=== PATIENT | female | born 1960 | race Caucasian/White ===

== ENCOUNTER → 2016-05-01 | Outpatient (CLI) | payer MEDICARE, OTHER ==
[2016-05-01 13:46] VITALS: BP 109/78; PULSE 8; TEMP 97.4; BMI 31.1
[2016-05-01 15:43] LABS: CH 27.1; CHCM 32.2; HCT 41.8 % (34.0-46.0); HDW 2.65; HGB 13.8 gm/dL (11.4-16.0); MCH 27.8 pg (25.0-35.0); MCHC 32.9 g/dL (31.0-37.0); MCV 84.5 fL (80.0-100.0); Mean Platelet Volume 8.9; RBC 4.95 m/uL (3.80-5.40); RDW 15.5 % (11.5-15.5); WBC 10.8 k/uL (3.8-10.6)
[2016-05-01 16:12] LABS: ALT 41 U/L (9-52); AST 16 U/L (14-36); Alkaline Phosphatase 119 U/L (38-126); Anion Gap 10 mmol/L; Blood Urea Nitrogen 11 mg/dL (7-17); Calcium 9.2 mg/dL (8.4-10.2); Carbon Dioxide 24 mmol/L (22-30); Chloride 107 mmol/L (98-107); Cholesterol 182 mg/dL (<200); Glucose 88 mg/dL (74-99); HDL Cholesterol 64 mg/dL (40-60); Iron 28 ug/dL (37-170); Non-African American GFR(MDRD) 58 (>60 ml/min/1.73 sqM); Phosphorous 4.3 mg/dL (2.5-4.5); Potassium 4.1 mmol/L (3.5-5.1); Sodium 141 mmol/L (137-145); Total Bilirubin 0.8 mg/dL (0.2-1.3); Total Protein 6.9 g/dL (6.3-8.2); Triglycerides 139 mg/dL (<150)
[2016-05-01 16:22] LABS: % Iron Saturation 7.9 % (20-50); Prealbumin 16 mg/dL (18-36); Total Iron Binding Capacity 354 ug/dL (265-497)
[2016-05-01 16:42] LABS: INR 1.1 (<1.1); Partial Thromboplastin Time 25.8 sec (22.0-30.0); Prothrombin Time 11.2 sec (9.0-12.0)
[2016-05-01 17:16] LABS: Vitamin B12 426 pg/mL (239-931)
[2016-05-01 18:08] LABS: Hemoglobin A1C 5.4 % (4.2-6.1)
[2016-05-06 18:28] LABS: Selenium 162 mcg/L (63-160)
--- NOTE | 2016-06-04 23:47 | P.PN ---
Progress Note - Text DATE OF SERVICE: 05/01/2016 CHIEF COMPLAINT: Follow-up gastric bypass. HISTORY OF PRESENT ILLNESS: Kassy Lopez is a 55-year-old female status post gastric bypass on 11/06/2015. She is now 6 months out. Her ideal body weight for a 5' 6" frame is 154 pound. Her highest weight was 278 pounds. Today she comes in weighing 193 pounds. She has lost 85 pounds. The patient's weight loss is 69%. Since her last follow-up 3 months ago in January, she has lost another 31 pounds. Body mass index is reduced from 45 down to 31.1. Total BMI point reduction is 13.8. Her weight loss after 6 months is 69%. She is extremely pleased with the level weight loss. Her lungs are better. Her COPD is better. Much of her medications including her blood pressure is now resolved. She is no longer requiring any medications for diabetes. Incidentally, she is also obtaining dental work. No reports of dumping syndrome. Again, her blood pressure medication has also been significantly reduced. Now she presents for further evaluation and management. In fact, her tachycardia is also resolved. PAST MEDICAL HISTORY: 1. Hernandez esophagus. 2. Gastroesophageal reflux disease, now resolved. 3. Osteoarthritis, now resolved. 4. Diabetes type 2 with gastroparesis, now resolved. 5. Depression. 6. Hypertension, now resolved. 7. Chronic obstructive pulmonary disease, now improved. 8. Prolonged QT interval. PAST SURGICAL HISTORY: 1. Back surgery x3 including fusion. 2. TENS unit infusion. 3. Neck fusion. 4. Right knee injections. 5. Colonoscopy. 6. Upper endoscopy. 7. Appendectomy. 8. section. 9. Cholecystectomy. 10. Tubal ligation. 11. Status post gastric bypass. MEDICATIONS: 1. Percocet. 2. Effexor. 3. Spiriva. 4. Omeprazole. 5. Lisinopril. 6. Symbicort. 7. Baclofen. 8. Albuterol inhaler. 9. Albuterol nebulizer. ALLERGIES: MUSHROOM. FAMILY HISTORY: Denies any Crohn's disease or ulcerative colitis. Denies any lupus within her family. SOCIAL HISTORY: Active tobacco user over 25 years, 1 pack per day and now in remission. REVIEW OF SYSTEMS: CONSTITUTIONAL: [place] body weight of 154 pounds. Highest weight was 278 pounds. She has lost 85 pounds. Percent excess weight loss is 59%. Recent weight loss of 31 pounds in 3 months. Body mass index reduced from 45 down to 31.1. Total BMI point reduction is 13.8. ENDOCRINE: Resolved diabetes type 2. RESPIRATORY: Resolved obstructive sleep apnea. CARDIOVASCULAR: Resolved prolonged QT. Hypertension is now resolved. Slight to moderate reduction in her antidepressant medications. GASTROINTESTINAL: No reports of dumping syndrome. Gastroesophageal reflux disease is completely resolved. HEENT: She had removal of her mandibular tooth abscess. She still has poor dentition and requires extraction of all her teeth. Future dentures are pending at this time. MUSCULOSKELETAL: Reports osteoarthritis of the back including hips. NEURO: No reports of recent stroke or seizure disorder. History of chronic pain. HEMATOLOGIC: No recent DVTs or pulmonary embolisms. PSYCH: History chronic pain including depression. PHYSICAL EXAM: VITAL SIGNS: 97.4, 68. Blood pressure 109/78. Respirations 16. 5 foot 6, 193 pounds. Body mass is 31.2. ABDOMEN: Soft, nontender, nondistended. No palpable incisional hernias. MUSCULOSKELETAL: No clubbing, cyanosis, or edema. GENERAL: Well-developed female in no acute distress. CARDIOVASCULAR: Tachycardic. HEENT: Head atraumatic, normocephalic. Also has a poor dentition. Resolved abscess of the maxillary abscess. CHEST: Nonlabored respirations. Equal bilateral excursions. NECK: Supple without lymphadenopathy. NEURO: No focal or lateralizing signs. PSYCH: Appropriate affect. Alert and oriented to person, place and time. LABS: WBC elevated at 10.8 from previous 9.2. Hemoglobin normal at 13.8. Hemoglobin A1c completely normalized from 7.4 down to 5.4. Iron low at 28. Percent iron saturation low at 7.9. Prealbumin low at 16. Albumin low at 3.8. HDL elevated at 64. Total cholesterol normal at 182. Vitamin A low at 33. Vitamin D low at 26. Parathyroid hormone elevated at 172. Sodium elevated at 162. ASSESSMENT: 1. Morbid obesity and excess calories. 2. Body mass index reduced from 45 down to 31.2. 3. Status post gastric bypass. 4. Restless leg syndrome. 5. Obstructive sleep apnea, resolved. 6. Secondary hyperparathyroidism. 7. Thiamine deficiency. 8. Hypertriglyceridemia. 9. Prior history of active tobacco use, now in remission. 10. [id number] type 2 diabetes, resolved. 11. Diabetic gastroparesis. 12. History of gout. 13. History of Hernandez's esophagus. 14. Chronic obstructive pulmonary disease exacerbation. 15. Vitamin D deficiency. 16. Thiamine deficiency. 17. Hypertriglyceridemia. 18. Hyperlipidemia. 19. Second hand tobacco exposure. 20. Congestive heart failure from hypertension. 21. Status post Cherie-en-Y gastric bypass. 22. Leukocytosis. 23. Iron deficiency anemia. 24. Vitamin A deficiency. 25. Selenium excess. 26. Hypertensive heart disease, resolved. 27. Improvement of chronic obstructive pulmonary disease. 28. Gout without recent exacerbation. PLAN: 1. Recommend vitamin A supplement with 8000 units daily including increased vitamin A rich foods. 2. Recommend goal protein intake of over 75 grams daily. 3. Recommend vitamin D intake of at least 5000 units daily. 4. Recommend calcium intake at minimum 1200 mg daily in divided doses. 5. Recommend reduction of selenium within her food. 6. Overall she is doing extremely well, recommend follow-up in 3 months. ADDENDUM: In view of medication, she was also advised to cut back on lisinopril as she reports intermittent hypotensive and dizziness.
== END | disposition home or self-care (01) ==
LOC: BARWHC3 13:16
PROVIDERS: ATTEND Surgery Plastic and Reconstructive Surgery
DX: Z48.815 Encounter for surgical aftercare following surgery on the digestive system (principal); Z71.3 Dietary counseling and surveillance; E66.01 Morbid (severe) obesity due to excess calories; Z98.84 Bariatric surgery status; E21.1 Secondary hyperparathyroidism, not elsewhere classified; E89.1 Postprocedural hypoinsulinemia; D50.8 Other iron deficiency anemias; E44.0 Moderate protein-calorie malnutrition; E55.9 Vitamin D deficiency, unspecified; K74.1 Hepatic sclerosis; N19 Unspecified kidney failure; K50.90 Crohn's disease, unspecified, without complications
CPT/HCPCS: 84255; 84134; 84425; 80061; 80053; 82607; 82728; 83036; 82525; 82746; 83540; 83550; 83735; 84100; 84443; 84590; 84630; 85027; 85610; 85730; 82306; 83970; 97803; G0463; 99211

== ENCOUNTER → 2016-05-27 | Outpatient (CLI) | payer MEDICARE ==
--- NOTE | 2016-05-27 17:31 | XR ---
EXAMINATION TYPE: XR chest 2V DATE OF EXAM: 05/27/2016 5:15 PM COMPARISON: 02/02/2016 HISTORY: Cough and short of breath TECHNIQUE: Frontal and lateral views of the chest are obtained. FINDINGS: Heart is enlarged. There is some pulmonary vascular congestion. There is no definite pleur al effusion. There is a neurostimulator in the midthoracic spine. There are no hilar masses. Bony tho rax is intact. IMPRESSION: Cardiomegaly with coarse pulmonary interstitial infiltrates similar to old exam. This co uld be interstitial edema due to heart failure or to interstitial fibrosis.
== END ==
LOC: RADXRMAIN 17:03
PROVIDERS: ATTEND Internal Medicine
DX: I51.7 Cardiomegaly (principal)
CPT/HCPCS: 71020

== ENCOUNTER 2016-06-10 08:39 | Inpatient (IN) | payer MEDICARE, OTHER ==
--- NOTE | 2016-06-10 09:22 | ED ---
SOB HPI - General Source: patient, RN notes reviewed Mode of arrival: ambulatory Limitations: no limitations <Srikanth Hamlin - Last Filed: 06/10/16 11:21> <Kyrie Bazzi - Last Filed: 06/10/16 11:50> - General Chief Complaint: Shortness of Breath Stated Complaint: diff breathing Time Seen by Provider: 06/10/16 09:01 - History of Present Illness Initial Comments: A 55-year-old female presents emergency Department with chief complaint of shortness of breath. Patient states she has been sick for last month. Patient states she's been on multiple rounds of antibiotics, steroids from her primary care physician. Patient states then she had chest x-ray which showed cardiomegaly and possible some fluid. Patient does have a history of CHF. She complains of some swelling of her upper extremities unsure of her lower extremities. Patient states that she's been doing her breathing treatments at home for COPD with minimal relief. Patient denies fever, chills. She states she is just very fatigued and has some exertional shortness of breath. Patient states she sees Dr. Stevens driver courier, Dr. Ruiz lens blank gauger. (Srikanth Hamlin) - Related Data Home Medications Medication Instructions Recorded Confirmed Albuterol Nebulized [Ventolin 2.5 mg INHALATION RT-QID 07/07/13 06/10/16 Nebulized] Venlafaxine HCl [Effexor XR] 150 mg PO BID 01/12/15 06/10/16 oxyCODONE-APAP 10-325MG [Percocet 1 tab PO Q6HR PRN 01/12/15 06/10/16 10-325 mg] Tiotropium [place] [Spiriva] 1 cap INHALATION RT-DAILY 03/09/15 06/10/16 Baclofen 10 mg PO TID 05/31/15 06/10/16 Albuterol Sulfate [Proair Hfa] 2 puff INHALATION RT-Q6H PRN 08/09/15 06/10/16 Budesonide-Formot 160-4.5 Mcg 2 puff INHALATION RT-BID 08/20/15 06/10/16 [Symbicort 160-4.5 Mcg Inhaler] Cholecalciferol [Vitamin D3] 2,000 unit PO DAILY 06/10/16 06/10/16 Previous Rx's Medication Instructions Recorded Omeprazole 40 mg PO DAILY #30 capsule. 02/02/16 Vitamin A 8,000 unit PO DAILY #30 capsule 06/02/16 Allergies Allergy/AdvReac Type Severity Reaction Status Date / Time Mushroom Allergy Nausea & Verified 06/10/16 09:01 Vomiting Review of Systems ROS Other: All systems not noted in ROS Statement are negative. <Srikanth Hamlin - Last Filed: 06/10/16 11:21> ROS Other: All systems not noted in ROS Statement are negative. <Kyrie Bazzi - Last Filed: 06/10/16 11:50> ROS Statement: Those systems with pertinent positive or pertinent negative responses have been documented in the HPI. Past Medical History Past Medical History: Heart Failure, COPD, CVA/TIA, Diabetes Mellitus, GERD/ Reflux, Hypertension, Osteoarthritis (OA) Additional Past Medical History / Comment(s): SHIPMAN'S ESOPHAGUS, gout in R knee, hiatal hernia, chronic back and neck pain. ALSO HAD RENAL FAILURE DUE TO DEHYDRATION,-RESOLVED NOW, Stroke 02/2015, pt. was recently scheduled for bariatric surgery-was cancelled due to tooth abscess-now resolved History of Any Multi-Drug Resistant Organisms: None Reported Past Surgical History: Appendectomy, Back Surgery, Bariatric Surgery, Section, Cholecystectomy, Joint Replacement, Tubal Ligation Additional Past Surgical History / Comment(s): BACK SX X3 including a fusion, has CLC implanted in back (tens unit), neck fusion, 11-06-15 LAP GABRIEL EN Y. Past Anesthesia/Blood Transfusion Reactions: Motion Sickness Additional Past Anesthesia/Blood Transfusion Reaction / Comment(s): Pt states she has never received blood. Past Psychological History: Depression Additional Psychological History / Comment(s): Pt lives in home with . Pt states she has depression and is on meds for that which have been very effective. Smoking Status: Former smoker Past Alcohol Use History: None Reported Additional Past Alcohol Use History / Comment(s): quit smoking JAN 11. smoked >25 years-1 ppd. Past Drug Use History: None Reported - Past Family History Sister(s) Family Medical History: Myocardial Infarction (CT) Additional Family Medical History / Comment(s): at age 43 [address] Mother Family Medical History: Coronary Artery Disease (CAD), Myocardial Infarction (CT ) Additional Family Medical History / Comment(s): Mother at age 62 of [address] Father Family Medical History: Coronary Artery Disease (CAD), Diabetes Mellitus, Myocardial Infarction (CT) Additional Family Medical History / Comment(s): Father in his 40's of a CT. <Srikanth Hamlin - Last Filed: 06/10/16 11:21> General Exam Limitations: no limitations General appearance: alert, in no apparent distress Head exam: Present: atraumatic, normocephalic, normal inspection Eye exam: Present: normal appearance, PERRL, EOMI. Absent: scleral icterus, conjunctival injection, periorbital swelling ENT exam: Present: normal exam, normal oropharynx, mucous membranes moist, TM's normal bilaterally, normal external ear exam Neck exam: Present: normal inspection, full ROM. Absent: tenderness, meningismus, lymphadenopathy Respiratory exam: Present: wheezes (Minimal). Absent: normal lung sounds bilaterally, respiratory distress, rales, rhonchi, stridor Cardiovascular Exam: Present: regular rate, normal rhythm, systolic murmur. Absent: normal heart sounds, diastolic murmur, rubs, gallop, clicks Back exam: Absent: CVA tenderness (R), CVA tenderness (L) Neurological exam: Present: alert <Srikanth Hamlin - Last Filed: 06/10/16 11:21> Medical Decision Making - Lab Data Result diagrams: 06/10/16 09:44 06/10/16 09:44 <Srikanth Hamlin - Last Filed: 06/10/16 11:21> - Lab Data Result diagrams: 06/10/16 09:44 06/10/16 09:44 <Kyrie Bazzi - Last Filed: 06/10/16 11:50> - Medical Decision Making Patient reevaluated by myself, Dr. Bazzi. Patient resting comfortably in bed. Slightly diminished breath sounds. Chest x-ray and blood work and computed tomography scan suspicious for CHF. Patient has a prominent systolic murmur. Patient believes this may be new. Patient was also updated on ascending thoracic aortic dilation. Patient is made aware that she will need to follow- up with cardiothoracic surgeon for this and possibly surgical repair. Case was discussed in detail with Dr. Trotter, who will admit for Dr. Hager. He agrees with cardiology consult. (Kyrie Bazzi) - Lab Data Lab Results 06/10/16 06/10/16 06/10/16 Range/Units 09:44 09:44 09:44 WBC 8.1 (3.8-10.6) k/uL RBC 4.34 (3.80-5.40) m/uL Hgb 11.6 (11.4-16.0) gm/dL Hct 36.4 (34.0-46.0) % MCV 83.8 (80.0-100.0) fL MCH 26.8 (25.0-35.0) pg MCHC 32.0 (31.0-37.0) g/dL RDW 17.3 H (11.5-15.5) % Plt Count 159 (150-450) k/uL Neutrophils % 69 % Lymphocytes % 22 % Monocytes % 7 % Eosinophils % 0 % Basophils % 0 % Neutrophils # 5.6 (1.3-7.7) k/uL Lymphocytes # 1.8 (1.0-4.8) k/uL Monocytes # 0.6 (0-1.0) k/uL Eosinophils # 0.0 (0-0.7) k/uL Basophils # 0.0 (0-0.2) k/uL Hypochromasia Slight Anisocytosis Slight PT (9.0-12.0) sec INR (<1.1) APTT (22.0-30.0) sec D-Dimer (<0.60) mg/L FEU Sodium 139 (137-145) mmol/L Potassium 4.0 (3.5-5.1) mmol/L Chloride 109 H (98-107) mmol/L Carbon Dioxide 21 L (22-30) mmol/L Anion Gap 9 mmol/L BUN 8 (7-17) mg/dL Creatinine 0.90 (0.52-1.04) mg/dL Est GFR (MDRD) Af Amer >60 (>60 ml/min/1.73 sqM) Est GFR (MDRD) Non-Af >60 (>60 ml/min/1.73 sqM) Glucose 113 H (74-99) mg/dL Calcium 8.9 (8.4-10.2) mg/dL Magnesium 1.8 (1.6-2.3) mg/dL Total Bilirubin 1.2 (0.2-1.3) mg/dL AST 21 (14-36) U/L ALT 31 (9-52) U/L Alkaline Phosphatase 95 (38-126) U/L Total Creatine Kinase 39 (30-135) U/L CK-MB (CK-2) 1.1 (0.0-2.4) ng/mL CK-MB (CK-2) Rel Index 2.8 Troponin I <0.012 (0.000-0.034) ng/mL NT-Pro-B Natriuret Pep pg/mL Total Protein 6.7 (6.3-8.2) g/dL Albumin 3.4 L (3.5-5.0) g/dL 06/10/16 06/10/16 Range/Units 09:44 09:44 WBC (3.8-10.6) k/uL RBC (3.80-5.40) m/uL Hgb (11.4-16.0) gm/dL Hct (34.0-46.0) % MCV (80.0-100.0) fL MCH (25.0-35.0) pg MCHC (31.0-37.0) g/dL RDW (11.5-15.5) % Plt Count (150-450) k/uL Neutrophils % % Lymphocytes % % Monocytes % % Eosinophils % % Basophils % % Neutrophils # (1.3-7.7) k/uL Lymphocytes # (1.0-4.8) k/uL Monocytes # (0-1.0) k/uL Eosinophils # (0-0.7) k/uL Basophils # (0-0.2) k/uL Hypochromasia Anisocytosis PT 11.8 (9.0-12.0) sec INR 1.2 (<1.1) APTT 24.9 (22.0-30.0) sec D-Dimer 18.97 H (<0.60) mg/L FEU Sodium (137-145) mmol/L Potassium (3.5-5.1) mmol/L Chloride (98-107) mmol/L Carbon Dioxide (22-30) mmol/L Anion Gap mmol/L BUN (7-17) mg/dL Creatinine (0.52-1.04) mg/dL Est GFR (MDRD) Af Amer (>60 ml/min/1.73 sqM) Est GFR (MDRD) Non-Af (>60 ml/min/1.73 sqM) Glucose (74-99) mg/dL Calcium (8.4-10.2) mg/dL Magnesium (1.6-2.3) mg/dL Total Bilirubin (0.2-1.3) mg/dL AST (14-36) U/L ALT (9-52) U/L Alkaline Phosphatase (38-126) U/L Total Creatine Kinase (30-135) U/L CK-MB (CK-2) (0.0-2.4) ng/mL CK-MB (CK-2) Rel Index Troponin I (0.000-0.034) ng/mL NT-Pro-B Natriuret Pep 7000 pg/mL Total Protein (6.3-8.2) g/dL Albumin (3.5-5.0) g/dL Disposition Time of Disposition: 11:22 <Srikanth Hamlin - Last Filed: 06/10/16 11:21> <Kyrie Bazzi - Last Filed: 06/10/16 11:50> Clinical Impression: Dyspnea, CHF exacerbation, COPD (chronic obstructive pulmonary disease) Disposition: ADMITTED IP TO THIS HOSP Condition: Fair Referrals: Nael Hager MD [Primary Care Provider] - 1-2 days Addendum entered and electronically signed by Srikanth Hamlin PAC 06/10/16 11:24 : EKG performed at 9:36 normal sinus rhythm with a rate of 98, CO interval 148, QRS duration 84 QT/QTC 390/497 prolonged QT
--- NOTE | 2016-06-10 09:59 | XR ---
EXAMINATION TYPE: XR chest 2V DATE OF EXAM: 06/10/2016 9:52 AM COMPARISON: 05/27/2016 HISTORY: 55-year-old female difficulty breathing, shortness of breath for 3 weeks TECHNIQUE: Frontal and lateral views FINDINGS: The heart is mildly enlarged. Aorta within normal limits. Diffuse interstitial prominence similar to slightly increased. Jessica B lines are slightly increased in the interval with some patchy peripheral right basilar opacity. ACDF hardware. IMPRESSION: 1. Cardiomegaly with slight interval increase in interstitial opacities with increasing Jessica B line s. Correlate for mild CHF. 2. Patchy peripheral right basilar opacity also increased and could represent atelectasis or developi ng infiltrate.
[2016-06-10 10:05] LABS: Anisocytosis Slight; Basophils % (A) 0 %; CH 26.6; Eosinophils % (A) 0 %; HCT 36.4 % (34.0-46.0); HDW 3.25; HGB 11.6 gm/dL (11.4-16.0); Hypochromasia Slight; Luc # (Auto) 0.16; Luc % (Auto) 2; Lymphocytes # (A) 1.8 k/uL (1.0-4.8); Lymphocytes % (A) 22 %; MCH 26.8 pg (25.0-35.0); MCV 83.8 fL (80.0-100.0); Mean Platelet Volume 8.3; Monocytes # (A) 0.6 k/uL (0-1.0); Monocytes % (A) 7 %; Neutrophils # (A) 5.6 k/uL (1.3-7.7); Neutrophils % (A) 69 %; RBC 4.34 m/uL (3.80-5.40); RDW 17.3 % (11.5-15.5); WBC 8.1 k/uL (3.8-10.6); WBC (Perox) 8.01
[2016-06-10 10:21] LABS: INR 1.2 (<1.1); Partial Thromboplastin Time 24.9 sec (22.0-30.0); Prothrombin Time 11.8 sec (9.0-12.0)
[2016-06-10 10:23] LABS: Creatine Kinase 39 U/L (30-135)
[2016-06-10 10:36] LABS: Creatine Kinase MB 1.1 ng/mL (0.0-2.4); Troponin I <0.012 ng/mL (0.000-0.034)
[2016-06-10] MEDS ORDERED: RX INFO: IV CONTRAST WAS GIVEN 1 EACH MISC MISCELLANE PRN (10:37)
[2016-06-10 10:40] LABS: ALT 31 U/L (9-52); AST 21 U/L (14-36); Alkaline Phosphatase 95 U/L (38-126); Anion Gap 9 mmol/L; Blood Urea Nitrogen 8 mg/dL (7-17); Calcium 8.9 mg/dL (8.4-10.2); Carbon Dioxide 21 mmol/L (22-30); Chloride 109 mmol/L (98-107); Glucose 113 mg/dL (74-99); Magnesium 1.8 mg/dL (1.6-2.3); Non-African American GFR(MDRD) >60 (>60 ml/min/1.73 sqM); Sodium 139 mmol/L (137-145); Total Bilirubin 1.2 mg/dL (0.2-1.3); Total Protein 6.7 g/dL (6.3-8.2)
--- NOTE | 2016-06-10 11:15 | CT ---
CT CHEST FOR PULMONARY EMBOLISM. EXAMINATION TYPE: CT chest angio for PE DATE OF EXAM: 06/10/2016 11:08 AM INDICATION: Difficulty breathing CT DLP: 327.5 mGycm, Automated exposure control for dose reduction was used. CONTRAST: Patient injected with 100 mL of Omnipaque 350. COMPARISON: NONE TECHNIQUE: CT of the chest is performed on a spiral scan at 2 mm thick sections. Study is performed with intravenous contrast timed for evaluation for pulmonary embolism. This will limit additional po rtions of the evaluation. 3-D MIP images reconstructed by the technologist are reviewed on the compu ter in the coronal and sagittal planes. FINDINGS: No persistent filling defects are evident to suggest an acute pulmonary embolism. No mediastinal or hilar adenopathy enlarged by CT criteria is evident. The ascending aorta diameter at the level of the main pulmonary artery is 4.3 cm. The main pulmonary artery diameter at the bifur cation is 3.7 cm. Small bilateral pleural effusions are present. Mild scattered areas of pneumonitis are within the arsen ateral lungs. Limited CT section were obtained through the upper abdomen. Postsurgical changes are within the stoma ch. Small amount of ascites is present. There is some prominence of the right lobe of the thyroid wit hin the [id number]. IMPRESSIONS: 1. No acute pulmonary embolism. 2. Small bilateral pleural effusions. 3. Minimal ascites adjacent to liver. 4. Prominence of the right lobe thyroid 5. Ascending thoracic aorta at the level of main pulmonary artery is 4.3 cm.
[2016-06-10] MEDS ORDERED: FUROSEMIDE 10 MG/ML 4 ML VIAL IV STA (11:20)
--- NOTE | 2016-06-10 14:01 | P.HPIM ---
History of Present Illness H&P Date: 06/10/16 Chief Complaint: Shortness of breath This is a 55-year-old female with a known history of congestive heart failure, COPD, diabetes mellitus, hypertension, CVA, morbid obesity with a laparoscopic gastric bypass done in October 2015. Patient presents to emergency room with complaints of shortness of breath. Patient reports that her symptoms have been ongoing for about the last month. She reports she was treated for bronchitis and COPD exacerbation and had been on antibiotics and steroids in the outpatient setting. Her cough had shown improvement. However she continued to have shortness of breath that worsened over the last few days. She had a chest x-ray done in the beginning of May and she was reported that it had shown cardiomegaly with possible fluid. She came into the emergency room for further evaluation and treatment. Today's chest x-ray shows cardiomegaly with slight interval increase in interstitial opacities with increasing curly B lines. Also patchy peripheral right basilar opacity has increased and could represent atelectasis or developing infiltrate. Patient's BNP level was 7000. She was started on IV Lasix for an acute CHF exacerbation. Cardiology has been consulted. She also was found have elevated d-dimer of 18.97. A CTA of the chest was completed which was negative for PE. Small bilateral pleural effusions. Minimal ascites adjacent to the liver. And prominence of the right lobe of the thyroid. Ascending thoracic aorta at the level of main pulmonary arteries measuring 4.3 cm. Bilateral lower extremity Dopplers also done and are pending. Patient has noticed improvement in her breathing after the IV Lasix. She reports that she had been on Lasix, blood pressure medications and diabetes medications which were discontinued in January after her gastric bypass. Patient denies any fever, chills, sweats. Denies any chest pain. Denies any nausea or vomiting. Denies any bowel movement changes or urinary symptoms. Patient does report that she had some swelling in her hands. And she had some cramping in the calves of her legs bilaterally. Review of Systems Please refer to HPI otherwise unremarkable Past Medical History Past Medical History: Heart Failure, COPD, CVA/TIA, Diabetes Mellitus, GERD/ Reflux, Hypertension, Osteoarthritis (OA) Additional Past Medical History / Comment(s): Past SHIPMAN'S ESOPHAGUS- surgically removed, past hiatal hernia, chronic back and neck pain, stroke 2015 with L arm weakness, chronic bronchitis, sinus problems, migraines in past , athritis bilateral knees and in neck, past tooth abscess. History of Any Multi-Drug Resistant Organisms: None Reported Past Surgical History: Appendectomy, Back Surgery, Bariatric Surgery, Section, Cholecystectomy, Joint Replacement, Tubal Ligation Additional Past Surgical History / Comment(s): BACK SX X2 including a fusion, has CLC implanted in back (tens unit), cervical fusion, 9--16 LAP GABRIEL EN Y, EGDs and EGD with dilation and removal of a staple that had migrated, colonoscopy/benign polypectomy, bilateral knee injections. Past Anesthesia/Blood Transfusion Reactions: Motion Sickness Additional Past Anesthesia/Blood Transfusion Reaction / Comment(s): Pt states she has never received blood. Past Psychological History: Depression Additional Psychological History / Comment(s): Pt lives in home with . Pt states she has depression and is on meds for that which have been very effective. There are adult children in the home. Pt is independent. Smoking Status: Former smoker Past Alcohol Use History: None Reported Additional Past Alcohol Use History / Comment(s): quit smoking JAN 11. smoked >25 years-1 ppd. Past Drug Use History: None Reported - Past Family History Sister(s) Family Medical History: Myocardial Infarction ([place]) Additional Family Medical History / Comment(s): at age 43 if [place] Mother Family Medical History: Coronary Artery Disease (CAD), Myocardial Infarction ([place] ) Additional Family Medical History / Comment(s): Mother at age 62 of [place]. Father Family Medical History: Coronary Artery Disease (CAD), Diabetes Mellitus, Myocardial Infarction ([place]) Additional Family Medical History / Comment(s): Father in his 40's of a [place]. Medications and Allergies Home Medications Medication Instructions Recorded Confirmed Type Albuterol Nebulized [Ventolin 2.5 mg INHALATION RT-QID 07/07/13 06/10/16 History Nebulized] Venlafaxine HCl [Effexor XR] 150 mg PO BID 01/12/15 06/10/16 History oxyCODONE-APAP 10-325MG [Percocet 1 tab PO Q6HR PRN 01/12/15 06/10/16 History 10-325 mg] Tiotropium [place] [Spiriva] 1 cap INHALATION RT-DAILY 03/09/15 06/10/16 History Baclofen 10 mg PO TID 05/31/15 06/10/16 History Albuterol Sulfate [Proair Hfa] 2 puff INHALATION RT-Q6H PRN 08/09/15 06/10/16 History Budesonide-Formot 160-4.5 Mcg 2 puff INHALATION RT-BID 08/20/15 06/10/16 History [Symbicort 160-4.5 Mcg Inhaler] Cholecalciferol [Vitamin D3] 2,000 unit PO DAILY 06/10/16 06/10/16 History Allergies Allergy/AdvReac Type Severity Reaction Status Date / Time Mushroom Allergy Nausea & Verified 06/10/16 09:01 Vomiting Physical Exam Vitals: Vital Signs Temp Pulse Resp BP Pulse Ox 06/10/16 13:00 97.1 F L 95 18 124/85 96 06/10/16 12:29 97.1 F L 95 18 124/85 96 06/10/16 11:38 100 18 132/103 95 Head normocephalic Neck supple Lungs clear to auscultation bilaterally no wheezing or crackles Heart regular rate and rhythm S1-S2, no rub or gallop. Positive murmur Abdomen is soft nontender nondistended positive bowel sounds no hepatosplenomegaly Extremities trace edema bilateral lower extremities Neuro alert and orientated to 3 Results CBC & Chem 7: 06/10/16 09:44 06/10/16 09:44 Thrombosis Risk Factor Assmnt - Choose All That Apply Any of the Below Risk Factors Present?: Yes Each Factor Represents 1 point: Abnormal pulmonary function (COPD), Age 41-60 years, Heart failure (<1month), Obesity (BMI >25) Other Risk Factors: No Other congenital or acquired thrombophilia - If yes, enter type in comment: No Thrombosis Risk Factor Assessment Total Risk Factor Score: 4 Thrombosis Risk Factor Assessment Level: Moderate Risk Assessment and Plan Plan: 1. Acute diastolic CHF exacerbation. Echo from July 2015 shows an EF of 55-60% . BNP elevated at 7000 chest x-ray showing cardiomegaly with slight interval increase in interstitial opacities with increasing Jessica B-lines. Cardiology has been consulted. Patient is been started on IV Lasix 40 mg every 12 hours. Check echocardiogram 2. Elevated d-dimer: CTA negative for PE. Awaiting venous Doppler of the lower extremities 3. History of COPD: No evidence of exacerbation. Resume her nebulizer treatment and inhalers 4. History of morbid obesity status post laparoscopic gastric bypass in October 2015. Patient reports losing about 90 pounds 5. History of CVA 6. History of diabetes mellitus type 2: We'll add sliding scale with Accu- Cheks every before meals and at bedtime. Check hemoglobin A1c. Patient reports not requiring her diabetes medication since the gastric bypass surgery 7. History of essential hypertension: Blood pressures have improved since gastric bypass surgery. Blood pressures are currently stable. Continue to monitor. 8. Incidental finding of a prominence of the right thyroid lobe. Check thyroid studies. 9. Chronic back pain with history of previous back surgeries: Continue pain medication GI prophylaxis Protonix and DVT prophylaxis subcu heparin Time with Patient: Greater than 30 (Greater than 50% of the total time spent in counseling and coordination of care.I performed an examination of the patient and discussed their management with the physician Scale Reclamation Tender. I have reviewed the Physician Scale Reclamation Tender's notes and agree with the documented findings and plan of care)
[2016-06-10 14:59] VITALS: BMI 30.7
[2016-06-10] MEDS: oxyCODONE-APAP 10-325MG 1 EACH TAB PO PRN ×2 (15:30→22:53)
[2016-06-10] MEDS: BACLOFEN 10 MG TAB PO SCH ×2 (15:30→22:53)
--- NOTE | 2016-06-10 15:32 | US ---
EXAMINATION TYPE: US thyroid st tissue head/neck DATE OF EXAM: 06/10/2016 2:56 PM COMPARISON: No previous CLINICAL HISTORY: 55-year-old female Prominence of right Lobe thyroid on CT scan. Enlarged right thyr oid lobe on recent CT. TECHNIQUE: Multiple sonographic images of the thyroid gland are obtained. FINDINGS: GLAND SIZE: Right Lobe: 5.6 x 1.3 x 2.1 cm Left Lobe: 4.3 x 1.5 x 1.6 cm Isthmus Thickness: 0.3 cm Overall Parenchyma: heterogeneous NODULES RIGHT: # of nodules measured on right: 1 1. 0.4 X 0.3 x 0.4 cm cystic nodule at the mid pole with well-defined margins. This nodule is wider than tall and shows no intranodular vascularity. Prior size: no previous LEFT: # of nodules measured on left: 2 1. 0.5 X 0.4 x 0.6 cm mixed nodule at the mid pole with well-defined margins. This nodule is wider than tall and shows intranodular vascularity. Prior size: no previous 2. 1.1 X 0.4 x 0.7 cm hypoechoic solid nodule at the lower pole with well-defined margins. This nodu le is wider than tall and shows intranodular vascularity. Prior size: no previous ISTHMUS: # of nodules measured in the isthmus: 0 Bilateral neck scanned, no evidence of lymphadenopathy. IMPRESSION: 1. Heterogeneous glandular parenchyma with enlarged right lobe. Correlate for possible goiter. 2. A 1.1 cm solid nodule at the left lower pole. The decision to biopsy should be made on a clinical basis. 3. Additional 6 mm and smaller nodules, one on each side.
--- NOTE | 2016-06-10 15:33 | US ---
EXAMINATION TYPE: US venous doppler duplex LE BI DATE OF EXAM: 06/10/2016 3:12 PM COMPARISON: No previous CLINICAL HISTORY: 55-year-old female with pain. Elevated d-dimer SIDE PERFORMED: Bilateral TECHNIQUE: The lower extremity deep venous system is examined utilizing real time linear array sonog naty with graded compression, doppler sonography and color-flow sonography. FINDINGS: VESSELS IMAGED: External Iliac Vein (EIV) Common Femoral Vein Deep Femoral Vein Greater Saphenous Vein * Femoral Vein Popliteal Vein Small Saphenous Vein * Proximal Calf Veins (* superficial vessels) Right Leg: Appears negative for DVT Left Leg: Appears negative for DVT IMPRESSION: No evidence for acute DVT within the bilateral lower extremities imaged from the groin to the upper c gregory.
[2016-06-10] MEDS: ALBUTEROL NEBULIZED 2.5 MG/3 ML INHALATION SCH ×2 (15:54→19:24)
[2016-06-10] MEDS: INSULIN LISPRO (humaLOG) 300 UNIT/3 ML VIAL SQ SCH ×2 (17:29→22:45)
[2016-06-10 17:33] LABS: Glucose,Whole Blood 160 mg/dL (75-99)
[2016-06-10] MEDS: SYMBICORT 160-4.5 MCG INHALER INHALATION SCH (19:25)
[2016-06-10 20:34] LABS: Hemoglobin A1C 5.4 % (4.2-6.1)
[2016-06-10 20:40] LABS: Glucose,Whole Blood 122 mg/dL (75-99)
[2016-06-10] MEDS: FUROSEMIDE 10 MG/ML 4 ML VIAL IV SCH (20:56)
[2016-06-10] MEDS: IBUPROFEN 800 MG TAB PO PRN (20:56)
[2016-06-10] MEDS: HEPARIN SODIUM,PORCINE 5,000 UNIT/ML 1 ML VIAL SQ SCH (22:45)
[2016-06-10] MEDS: VENLAFAXINE HCL ER 150 MG CAP PO SCH (22:53)
[2016-06-11] MEDS: IBUPROFEN 800 MG TAB PO PRN ×2 (04:26→14:12)
[2016-06-11 07:18] LABS: Glucose,Whole Blood 95 mg/dL (75-99)
[2016-06-11] MEDS: INSULIN LISPRO (humaLOG) 300 UNIT/3 ML VIAL SQ SCH ×4 (07:29→21:12)
[2016-06-11] MEDS: VENLAFAXINE HCL ER 150 MG CAP PO SCH ×2 (07:49→21:12)
[2016-06-11] MEDS: HEPARIN SODIUM,PORCINE 5,000 UNIT/ML 1 ML VIAL SQ SCH ×2 (07:49→21:12)
[2016-06-11] MEDS: PANTOPRAZOLE 40 MG TABLET PO SCH (07:49)
[2016-06-11] MEDS: BACLOFEN 10 MG TAB PO SCH ×3 (07:49→21:11)
[2016-06-11] MEDS: FUROSEMIDE 10 MG/ML 4 ML VIAL IV SCH ×2 (07:50→21:12)
[2016-06-11] MEDS: oxyCODONE-APAP 10-325MG 1 EACH TAB PO PRN ×3 (07:51→21:09)
[2016-06-11] MEDS: ALBUTEROL NEBULIZED 2.5 MG/3 ML INHALATION SCH ×4 (08:07→20:19)
[2016-06-11] MEDS: SYMBICORT 160-4.5 MCG INHALER INHALATION SCH ×2 (08:17→20:19)
[2016-06-11] MEDS: TIOTROPIUM 18 MCG/PUFF INHALER INHALATION SCH (08:17)
[2016-06-11 09:41] LABS: Anisocytosis Slight; Basophils % (A) 0 %; CH 27.1; CHCM 32.2; Eosinophils % (A) 0 %; HCT 40.9 % (34.0-46.0); HDW 3.21; HGB 12.6 gm/dL (11.4-16.0); Hypochromasia Slight; Luc # (Auto) 0.23; Luc % (Auto) 2; Lymphocytes # (A) 2.3 k/uL (1.0-4.8); Lymphocytes % (A) 24 %; MCH 26.2 pg (25.0-35.0); MCHC 30.9 g/dL (31.0-37.0); MCV 84.7 fL (80.0-100.0); Mean Platelet Volume 7.9; Monocytes # (A) 0.7 k/uL (0-1.0); Monocytes % (A) 7 %; Neutrophils # (A) 6.5 k/uL (1.3-7.7); Neutrophils % (A) 67 %; RBC 4.83 m/uL (3.80-5.40); RDW 17.1 % (11.5-15.5); WBC 9.8 k/uL (3.8-10.6); WBC (Perox) 10.28
[2016-06-11 09:56] LABS: ALT 28 U/L (9-52); AST 21 U/L (14-36); Alkaline Phosphatase 96 U/L (38-126); Anion Gap 15 mmol/L; Blood Urea Nitrogen 13 mg/dL (7-17); Calcium 8.9 mg/dL (8.4-10.2); Carbon Dioxide 23 mmol/L (22-30); Chloride 103 mmol/L (98-107); Glucose 62 mg/dL (74-99); Non-African American GFR(MDRD) 50 (>60 ml/min/1.73 sqM); Potassium 3.8 mmol/L (3.5-5.1); Sodium 141 mmol/L (137-145); Total Bilirubin 1.1 mg/dL (0.2-1.3); Total Protein 7.5 g/dL (6.3-8.2)
--- NOTE | 2016-06-11 10:15 | ECHOF ---
Referral Reason:check EF MEASUREMENTS -------- HEIGHT: 167.6 cm WEIGHT: 86.2 kg BP: 124/85 RVIDd: 3.8 cm (< 3.3) IVSd: 0.9 cm (0.6 - 1.1) LVIDd: 5.3 cm (3.9 - 5.3) LVPWd: 1.1 cm (0.6 - 1.1) IVSs: 1.1 cm LVIDs: 4.0 cm LVPWs: 1.5 cm LA Diam: 4.3 cm (2.7 - 3.8) LAESV Index (A-L): 51.61 ml/m Ao Diam: 3.4 cm (2.0 - 3.7) AV Cusp: 2.0 cm (1.5 - 2.6) MV EXCURSION: 21.800 mm (> 18.000) MV EF SLOPE: 107 mm/s (70 - 150) EPSS: 0.5 cm MV E David: 2.18 m/s MV DecT: 201 ms MV A David: 1.60 m/s MV E/A Ratio: 1.36 RAP: 5.00 mmHg RVSP: 68.47 mmHg FINDINGS -------- Sinus rhythm. This was a technically good study. The left ventricular size is normal. There is borderline concentric left ventricular hypertrophy. Overall left ventricular systolic function is normal with, an EF between 60 - 65 %. The right ventricle is mild to moderately enlarged. LA is severely dilated >40 ml/m2 The right atrium is normal in size. The aortic valve is trileaflet and appears structurally normal. The mitral valve leaflets are mild to moderately thickened. Mild mitral annular calcification present. Hkhkxabd-eh-vaqlfj mitral regurgitation is present. The peak and mean MV gradients are 24.17mmHg 10.20mmHg as measured by doppler. Uapz-ez-tgllodqz tricuspid regurgitation present. There is severe pulmonary hypertension. The right ventricular systolic pressure, as measured by Doppler, is 68.47mmHg. There is no pulmonic regurgitation present. The aortic root size is normal. The inferior vena cava is mildly dilated. There is no pericardial effusion. CONCLUSIONS -------- 1. Sinus rhythm. 2. The mitral valve leaflets are mild to moderately thickened. 3. Mild mitral annular calcification present. 4. Gdougfnb-pz-nvdggg mitral regurgitation is present. 5. The peak and mean MV gradients are 24.17mmHg 10.20mmHg as measured by doppler. 6. Wnuq-co-yprfpxtw tricuspid regurgitation present. 7. There is severe pulmonary hypertension. 8. The right ventricular systolic pressure, as measured by Doppler, is 68.47mmHg. 9. There is no pulmonic regurgitation present. 10. The aortic root size is normal. 11. The inferior vena cava is mildly dilated. 12. This was a technically good study. 13. There is no pericardial effusion. 14. The left ventricular size is normal. 15. There is borderline concentric left ventricular hypertrophy. 16. Overall left ventricular systolic function is normal with, an EF between 60 - 65 %. 17. The right ventricle is mild to moderately enlarged. 18. LA is severely dilated >40 ml/m2 19. The right atrium is normal in size. 20. The aortic valve is trileaflet and appears structurally normal. BACK UP MACHINE OPERATOR: Adwoa Erazo RDCS
--- NOTE | 2016-06-11 11:25 | P.GSCN ---
<Renetta Mar - Last Filed: 06/11/16 11:14> History of Present Illness Consult date: 06/11/16 Reason for Consult: Ascending thoracic aorta measuring 4.3 cm. Requesting physician: Loyda Dubon History of present illness: This 55-year-old female with previous medical history of congestive heart failure, COPD, CVA, and hypertension presented to the emergency room with increasing shortness of breath. Apparently she had been feeling short of breath for the previous month and had been treated with antibiotics and steroids per her primary care provider, however yesterday morning she woke up and was barely able to get out of bed because her shortness of breath was so bad. She denied any chest pain, palpitations, weakness, dizziness, syncope. She was admitted and treated for congestive heart failure with Lasix and this morning she feels significantly better. Cardiothoracic surgery was consulted because her ascending thoracic aorta measured 4.3 cm on CTA of the chest done yesterday Review of Systems 14 point review systems was completed and was negative except as noted. - Cardiovascular Reports as per HPI - Respiratory Reports as per HPI Past Medical History Past Medical History: Heart Failure, COPD, CVA/TIA, Diabetes Mellitus, GERD/ Reflux, Hypertension, Osteoarthritis (OA) Additional Past Medical History / Comment(s): Past SHIPMAN'S ESOPHAGUS- surgically removed, past hiatal hernia, chronic back and neck pain, stroke 2015 with L arm weakness, chronic bronchitis, sinus problems, migraines in past , athritis bilateral knees and in neck, past tooth abscess. History of Any Multi-Drug Resistant Organisms: None Reported Past Surgical History: Appendectomy, Back Surgery, Bariatric Surgery, Section, Cholecystectomy, Joint Replacement, Tubal Ligation Additional Past Surgical History / Comment(s): BACK SX X2 including a fusion, has CLC implanted in back (tens unit), cervical fusion, 9-12-16 LAP GABRIEL EN Y, EGDs and EGD with dilation and removal of a staple that had migrated, colonoscopy/benign polypectomy, bilateral knee injections. Past Anesthesia/Blood Transfusion Reactions: Motion Sickness Additional Past Anesthesia/Blood Transfusion Reaction / Comm: Pt states she has never received blood. Past Psychological History: Depression Additional Psychological History / Comment(s): Pt lives in home with . Pt states she has depression and is on meds for that which have been very effective. There are adult children in the home. Pt is independent. Smoking Status: Former smoker Past Alcohol Use History: None Reported Additional Past Alcohol Use History / Comment(s): quit smoking JAN 11. smoked >25 years-1 ppd. Past Drug Use History: None Reported - Past Family History Sister(s) Family Medical History: Myocardial Infarction ([place]) Additional Family Medical History / Comment(s): at age 43 if [place] Mother Family Medical History: Coronary Artery Disease (CAD), Myocardial Infarction ([place] ) Additional Family Medical History / Comment(s): Mother at age 62 of [place]. Father Family Medical History: Coronary Artery Disease (CAD), Diabetes Mellitus, Myocardial Infarction ([place]) Additional Family Medical History / Comment(s): Father in his 40's of a [place]. Medications and Allergies Home Medications Medication Instructions Recorded Confirmed Type Albuterol Nebulized [Ventolin 2.5 mg INHALATION RT-QID 07/07/13 06/10/16 History Nebulized] Venlafaxine HCl [Effexor XR] 150 mg PO BID 01/12/15 06/10/16 History oxyCODONE-APAP 10-325MG [Percocet 1 tab PO Q6HR PRN 01/12/15 06/10/16 History 10-325 mg] Tiotropium [place] [Spiriva] 1 cap INHALATION RT-DAILY 03/09/15 06/10/16 History Baclofen 10 mg PO TID 05/31/15 06/10/16 History Albuterol Sulfate [Proair Hfa] 2 puff INHALATION RT-Q6H PRN 08/09/15 06/10/16 History Budesonide-Formot 160-4.5 Mcg 2 puff INHALATION RT-BID 08/20/15 06/10/16 History [Symbicort 160-4.5 Mcg Inhaler] Cholecalciferol [Vitamin D3] 2,000 unit PO DAILY 06/10/16 06/10/16 History Allergies Allergy/AdvReac Type Severity Reaction Status Date / Time Mushroom Allergy Nausea & Verified 06/10/16 09:01 Vomiting Surgical - Exam Vital Signs Temp Pulse Resp BP Pulse Ox 97.1 F L 102 H 20 127/87 95 06/10/16 08:52 06/10/16 08:52 06/10/16 08:52 06/10/16 08:52 06/10/16 08:52 - General well developed, well nourished, no distress - Eyes PERRL, normal ocular movement - ENT no hearing loss - Neck trachea midline - Respiratory normal expansion, normal respiratory effort, clear to auscultation - Cardiovascular Rhythm: regular Heart Sounds: normal: S1, S2 Abnormal Heart Sounds: systolic murmur - Abdomen Abdomen: soft, non tender, bowel sounds - Genitourinary Deferred - Rectum Deferred - Integumentary Multiple tattoos no rash - Neurologic normal coordination, normal sensation - Musculoskeletal normal gait - Psychiatric oriented to time, oriented to person, oriented to place, speech is normal, memory intact Results - Labs 06/11/16 09:24 06/11/16 09:24 Abnormal Lab Results - Last 24 Hours (Table) 06/10/16 06/10/16 06/11/16 Range/Units 17:19 20:26 09:24 MCHC 30.9 L (31.0-37.0) g/dL RDW 17.1 H (11.5-15.5) % Creatinine (0.52-1.04) mg/dL Glucose (74-99) mg/dL POC Glucose (mg/dL) 160 H 122 H (75-99) mg/dL 06/11/16 Range/Units 09:24 MCHC (31.0-37.0) g/dL RDW (11.5-15.5) % Creatinine 1.13 H (0.52-1.04) mg/dL Glucose 62 L (74-99) mg/dL POC Glucose (mg/dL) (75-99) mg/dL Diabetes panel 06/11/16 Range/Units 09:24 Sodium 141 (137-145) mmol/L Potassium 3.8 (3.5-5.1) mmol/L Chloride 103 (98-107) mmol/L Carbon Dioxide 23 (22-30) mmol/L BUN 13 (7-17) mg/dL Creatinine 1.13 H (0.52-1.04) mg/dL Glucose 62 L (74-99) mg/dL Calcium 8.9 (8.4-10.2) mg/dL AST 21 (14-36) U/L ALT 28 (9-52) U/L Alkaline Phosphatase 96 (38-126) U/L Total Protein 7.5 (6.3-8.2) g/dL Albumin 3.9 (3.5-5.0) g/dL Calcium panel 06/11/16 Range/Units 09:24 Calcium 8.9 (8.4-10.2) mg/dL Albumin 3.9 (3.5-5.0) g/dL Pituitary panel 06/11/16 Range/Units 09:24 Sodium 141 (137-145) mmol/L Potassium 3.8 (3.5-5.1) mmol/L Chloride 103 (98-107) mmol/L Carbon Dioxide 23 (22-30) mmol/L BUN 13 (7-17) mg/dL Creatinine 1.13 H (0.52-1.04) mg/dL Glucose 62 L (74-99) mg/dL Calcium 8.9 (8.4-10.2) mg/dL Adrenal panel 06/11/16 Range/Units 09:24 Sodium 141 (137-145) mmol/L Potassium 3.8 (3.5-5.1) mmol/L Chloride 103 (98-107) mmol/L Carbon Dioxide 23 (22-30) mmol/L BUN 13 (7-17) mg/dL Creatinine 1.13 H (0.52-1.04) mg/dL Glucose 62 L (74-99) mg/dL Calcium 8.9 (8.4-10.2) mg/dL Total Bilirubin 1.1 (0.2-1.3) mg/dL AST 21 (14-36) U/L ALT 28 (9-52) U/L Alkaline Phosphatase 96 (38-126) U/L Total Protein 7.5 (6.3-8.2) g/dL Albumin 3.9 (3.5-5.0) g/dL - Imaging Chest x-ray: report reviewed, image reviewed CT scan - chest: report reviewed, image reviewed Assessment and Plan (1) Systolic murmur Status: Acute (2) CHF exacerbation Status: Acute (3) COPD (chronic obstructive pulmonary disease) Status: Acute Plan: 1. Continue current medical management. 2. Keep blood pressure under control. 3. Risk factor management. 4. Diagnostics reviewed. Will discuss case with Dr. Girard regarding management of descending aorta. Thank you for this consult. We look forward to working with you in the care of your patient. Time with Patient: Greater than 30 <Habib,Yovany - Last Filed: 06/11/16 16:58> Surgical - Exam Vital Signs Temp Pulse Resp BP Pulse Ox 97.1 F L 102 H 20 127/87 95 06/10/16 08:52 06/10/16 08:52 06/10/16 08:52 06/10/16 08:52 06/10/16 08:52 Results - Labs 06/11/16 09:24 06/11/16 09:24 Abnormal Lab Results - Last 24 Hours (Table) 06/10/16 06/10/16 06/11/16 Range/Units 17:19 20:26 09:24 MCHC 30.9 L (31.0-37.0) g/dL RDW 17.1 H (11.5-15.5) % Creatinine (0.52-1.04) mg/dL Glucose (74-99) mg/dL POC Glucose (mg/dL) 160 H 122 H (75-99) mg/dL 06/11/16 Range/Units 09:24 MCHC (31.0-37.0) g/dL RDW (11.5-15.5) % Creatinine 1.13 H (0.52-1.04) mg/dL Glucose 62 L (74-99) mg/dL POC Glucose (mg/dL) (75-99) mg/dL Diabetes panel 06/11/16 Range/Units 09:24 Sodium 141 (137-145) mmol/L Potassium 3.8 (3.5-5.1) mmol/L Chloride 103 (98-107) mmol/L Carbon Dioxide 23 (22-30) mmol/L BUN 13 (7-17) mg/dL Creatinine 1.13 H (0.52-1.04) mg/dL Glucose 62 L (74-99) mg/dL Calcium 8.9 (8.4-10.2) mg/dL AST 21 (14-36) U/L ALT 28 (9-52) U/L Alkaline Phosphatase 96 (38-126) U/L Total Protein 7.5 (6.3-8.2) g/dL Albumin 3.9 (3.5-5.0) g/dL Calcium panel 06/11/16 Range/Units 09:24 Calcium 8.9 (8.4-10.2) mg/dL Albumin 3.9 (3.5-5.0) g/dL Pituitary panel 06/11/16 Range/Units 09:24 Sodium 141 (137-145) mmol/L Potassium 3.8 (3.5-5.1) mmol/L Chloride 103 (98-107) mmol/L Carbon Dioxide 23 (22-30) mmol/L BUN 13 (7-17) mg/dL Creatinine 1.13 H (0.52-1.04) mg/dL Glucose 62 L (74-99) mg/dL Calcium 8.9 (8.4-10.2) mg/dL Adrenal panel 06/11/16 Range/Units 09:24 Sodium 141 (137-145) mmol/L Potassium 3.8 (3.5-5.1) mmol/L Chloride 103 (98-107) mmol/L Carbon Dioxide 23 (22-30) mmol/L BUN 13 (7-17) mg/dL Creatinine 1.13 H (0.52-1.04) mg/dL Glucose 62 L (74-99) mg/dL Calcium 8.9 (8.4-10.2) mg/dL Total Bilirubin 1.1 (0.2-1.3) mg/dL AST 21 (14-36) U/L ALT 28 (9-52) U/L Alkaline Phosphatase 96 (38-126) U/L Total Protein 7.5 (6.3-8.2) g/dL Albumin 3.9 (3.5-5.0) g/dL Assessment and Plan Plan: The patient was seen and examined. I agree with the above assessment and plan. Her chest CT reveals an ascending aortic aneurysm measuring 4.3 cm. There is no evidence of aortic dissection, pericardial effusion, or pleural effusion. Her echocardiogram reveals a trileaflet aortic valve with no evidence of regurgitation. There is moderate to severe mitral regurgitation which is currently being treated medically. There is no indication for surgical intervention on her aortic aneurysm at this time. Recommend repeating a computed tomography scan of the chest in 1 year.
[2016-06-11] MEDS: CHOLECALCIFEROL 1,000 UNIT TAB PO SCH (12:11)
[2016-06-11] MEDS: VITAMIN A 10,000 UNIT CAPSULE PO SCH (12:11)
[2016-06-11 12:22] LABS: Glucose,Whole Blood 85 mg/dL (75-99)
[2016-06-11] MEDS ORDERED: AZITHROMYCIN 500 MG in SODIUM CHLORIDE 0.9% 250 ML IVPB STA (12:45)
--- NOTE | 2016-06-11 13:54 | XR ---
EXAMINATION TYPE: XR chest 2V DATE OF EXAM: 06/11/2016 1:27 PM COMPARISON: 06/10/2016 INDICATION: Pneumonia, patient states CHF, previous abnormal chest x-ray TECHNIQUE: Single frontal view of the chest is obtained. FINDINGS: The heart size is enlarged. The pulmonary vasculature is normal. The lungs are clear. Previous infiltrate along the diaphragms is resolved. Stimulator leads are within the thoracic spinal canal. IMPRESSION: 1. No acute pulmonary process. 2. Cardiomegaly
--- NOTE | 2016-06-11 15:11 | CONS ---
DATE OF CONSULTATION: Patient is admitted to the hospital with increasing shortness of breath and leg edema in a known patient of congestive heart failure for a long time. Patient was screened for DVT which was negative and also screened for pulmonary embolism, which has been negative. Patient's chest x-ray showed some Jessica B-lines. Patient has well-preserved LV function, moderate enlargement of the left atrium is noted. Patient has moderate to severe atrial fibrillation, mitral regurgitation which was contributed to her congestive heart failure, mild to moderate tricuspid regurgitation with severe pulmonary hypertension of 68 mmHg was noted. Patient's mitral valve gradient was 24mm and gradient of 10. Patient is feeling better with the diuretic therapy. Patient's leg edema has improved. Acute exacerbation of chronic congestive heart failure aggravated by severe mitral regurgitation. Patient used to be a smoker, quit smoking recently. Patient has history of hypertension, history of diabetes, which has resolved since she had gastric bypass surgery in October of 2015, lost approximately 100 pounds, now not on any high blood pressure medications or diabetic medications either. Patient is feeling much better now since admission. Patient's past history remarkable for heart failure, sclerotic heart disease with severe mitral regurgitation, moderate to severe pulmonary hypertension, secondary to probably elevated by smoking and also ( ) mitral valve disease. History of aortic bypass surgery. History of Hernandez's esophagus surgically removed. History of hiatal hernia. History of chronic bronchitis. History of section, back surgery and cholecystectomy joint replacement and tubal ligation. Patient lives with her and his children. Also has a family history of coronary artery disease in both parents. Patient's medications prior to admission include albuterol inhaler q.i.d., Effexor XR 150 mg p.o. b.i.d., [place] as needed, Spiriva 1 inhalation daily, baclofen 10 mg p.o. t.i.d., Albuterol inhaler, ProAir when needed, Symbicort 160/4.5 mcg inhalation twice daily and vitamin D 2000 units daily. Allergic to MUSHROOMS. Physical examination revealed well-developed, well-nourished 55-year-old female not in acute distress, oriented x3 with a pulse rate of 100 beats per minute and regular, blood pressure of 130/70 mmHg, respirations of 18. HEAD: Normocephalic. HEENT unremarkable. Neck is supple. No JVD. CARDIAC EXAMINATION: S1 and S2. Pansystolic murmur noted in ( ) with radiation to the axilla, highly suggestive of mitral regurgitation, severe. Lungs are clinically clear to auscultation and percussion. ABDOMEN: Soft, no organomegaly. Active bowel sounds. EXTREMITIES: No pedal edema. Peripheral pulses. ASSESSMENT: 1. Acute exacerbation of chronic congestive heart failure aggravated by valvular heart disease and pulmonary hypertension, severe mitral regurgitation and severe pulmonary hypertension. 2. History of hypertension. 3. History of diabetes. 4. Morbid obesity resolved after losing weight following a gastric bypass surgery. RECOMMENDATIONS: Concur with the current therapy. Patient is to have further evaluation done and possibly valve surgery would be helpful. Thanks again for this kind referral.
[2016-06-11 16:46] LABS: Glucose,Whole Blood 91 mg/dL (75-99)
--- NOTE | 2016-06-11 17:53 | P.PN ---
Subjective Principal diagnosis: Acute diastolic congestive heart failure Patient is a 55-year-old female who presented to [facility] due to worsening shortness of breath Patient has a known history of diastolic congestive heart failure she had evidence of exacerbation with pulmonary congestion on chest x-ray and elevated BNP D-dimer was elevated computed tomography scan of the chest was done and did not reveal any evidence of pulmonary embolism however it revealed evidence of patchy infiltrate suggestive of pneumonitis Patient also had an incidental finding of thyroid nodule Today she is feeling somewhat better her shortness of breath has improved she is having occasional cough Otherwise she denies any complaint Objective - Vital Signs Vital signs: Vital Signs Temp 96.3 F L 06/11/16 14:31 Pulse 94 06/11/16 15:58 Resp 19 06/11/16 14:31 BP 106/69 06/11/16 14:31 Pulse Ox 97 06/11/16 14:31 Intake & Output 06/10/16 06/11/16 06/11/16 18:59 06:59 18:59 Intake Total 1160 Balance 1160 Weight 86.183 kg 86 kg Intake: Oral 1160 Other: Voiding Method Toilet # Voids 1 2 4 - Exam In general patient is alert and oriented 3 in no apparent distress HEENT head normocephalic and atraumatic Neck is supple no jugular venous distention no goiter no lymphadenopathy Chest is clear to auscultation no wheezing Cardiac exam reveals regular heart sounds no gallops no murmurs Abdomen is soft nontender no organomegaly Extremity exam reveals no edema no cyanosis or clubbing - Labs CBC & Chem 7: 06/11/16 09:24 06/11/16 09:24 Labs: Abnormal Lab Results - Last 24 Hours (Table) 06/10/16 06/11/16 06/11/16 Range/Units 20:26 09:24 09:24 MCHC 30.9 L (31.0-37.0) g/dL RDW 17.1 H (11.5-15.5) % Creatinine 1.13 H (0.52-1.04) mg/dL Glucose 62 L (74-99) mg/dL POC Glucose (mg/dL) 122 H (75-99) mg/dL Assessment and Plan Plan: #1 acute diastolic congestive heart failure continue with IV Lasix #2 pneumonitis patient was started on IV Rocephin and IV Zithromax Will monitor closely #3 thyroid nodule at this time will defer for management as outpatient #4 thoracic aortic aneurysm vascular surgery consultation was obtained #5 elevated d-dimer on admission CT angiogram negative for pulmonary embolism #6 underlying history of COPD #7 underlying history of diabetes mellitus millimeters #8 chronic pain syndrome was multiple previous back surgeries Medication and labs were reviewed continue was current management will recheck labs and chest x-ray in a.m.
[2016-06-11 21:03] LABS: Glucose,Whole Blood 62 mg/dL (75-99)
[2016-06-11 21:17] LABS: Glucose,Whole Blood 95 mg/dL (75-99)
[2016-06-11] MEDS: TEMAZEPAM 15 MG CAP PO PRN (23:06)
[2016-06-12 07:16] LABS: Glucose,Whole Blood 87 mg/dL (75-99)
[2016-06-12] MEDS: SYMBICORT 160-4.5 MCG INHALER INHALATION SCH ×2 (07:45→21:19)
[2016-06-12] MEDS: TIOTROPIUM 18 MCG/PUFF INHALER INHALATION SCH (07:45)
[2016-06-12] MEDS: ALBUTEROL NEBULIZED 2.5 MG/3 ML INHALATION SCH ×4 (07:45→21:19)
[2016-06-12] MEDS: INSULIN LISPRO (humaLOG) 300 UNIT/3 ML VIAL SQ SCH ×4 (08:04→21:37)
[2016-06-12 09:12] LABS: Anisocytosis Slight; Basophils % (A) 1 %; CH 26.8; Eosinophils % (A) 0 %; HCT 41.4 % (34.0-46.0); HDW 2.92; HGB 12.8 gm/dL (11.4-16.0); Hypochromasia Moderate; Luc # (Auto) 0.22; Luc % (Auto) 2; Lymphocytes # (A) 2.6 k/uL (1.0-4.8); Lymphocytes % (A) 28 %; MCH 26.9 pg (25.0-35.0); MCHC 30.9 g/dL (31.0-37.0); MCV 86.9 fL (80.0-100.0); Mean Platelet Volume 8.1; Monocytes # (A) 0.7 k/uL (0-1.0); Monocytes % (A) 8 %; Neutrophils # (A) 5.7 k/uL (1.3-7.7); Neutrophils % (A) 62 %; RBC 4.77 m/uL (3.80-5.40); RDW 16.7 % (11.5-15.5); WBC 9.3 k/uL (3.8-10.6); WBC (Perox) 9.72
[2016-06-12 09:50] LABS: ALT 26 U/L (9-52); AST 22 U/L (14-36); Alkaline Phosphatase 102 U/L (38-126); Anion Gap 12 mmol/L; Blood Urea Nitrogen 15 mg/dL (7-17); Calcium 9.1 mg/dL (8.4-10.2); Carbon Dioxide 25 mmol/L (22-30); Chloride 101 mmol/L (98-107); Glucose 111 mg/dL (74-99); Non-African American GFR(MDRD) 60 (>60 ml/min/1.73 sqM); Potassium 3.6 mmol/L (3.5-5.1); Sodium 138 mmol/L (137-145); Total Protein 7.2 g/dL (6.3-8.2)
[2016-06-12] MEDS: VENLAFAXINE HCL ER 150 MG CAP PO SCH ×2 (10:14→21:37)
[2016-06-12] MEDS: BACLOFEN 10 MG TAB PO SCH ×3 (10:14→21:37)
[2016-06-12] MEDS: PANTOPRAZOLE 40 MG TABLET PO SCH (10:14)
[2016-06-12] MEDS: HEPARIN SODIUM,PORCINE 5,000 UNIT/ML 1 ML VIAL SQ SCH ×2 (10:15→21:37)
[2016-06-12] MEDS: oxyCODONE-APAP 10-325MG 1 EACH TAB PO PRN ×2 (10:28→19:46)
[2016-06-12] MEDS: FUROSEMIDE 10 MG/ML 4 ML VIAL IV SCH ×2 (10:31→21:36)
[2016-06-12 12:06] LABS: Glucose,Whole Blood 104 mg/dL (75-99)
[2016-06-12] MEDS: VITAMIN A 10,000 UNIT CAPSULE PO SCH (12:24)
[2016-06-12] MEDS: CHOLECALCIFEROL 1,000 UNIT TAB PO SCH (12:24)
--- NOTE | 2016-06-12 15:42 | P.CNPUL ---
History of Present Illness Consult date: 06/12/16 Reason for consult: dyspnea, cough, COPD, pneumonia, abnormal CXR/CT Chief complaint: Shortness of breath History of present illness: 55-year-old female presents to the emergency department on June 10 with complaints of shortness of breath. Has been sick the last 3-4 weeks. Has had multiple rounds of antibiotics and steroids for presumed COPD exacerbation. Chest x-ray was done which showed cardiomegaly and some fluid in her lungs. She also initially had what appeared to be some possible infiltrate in the right lower lobe. Peelings feeling much better today. Heavy smoker. The patient sees my partner Dr. Stevens for her chronic lung disease. Also sees one of the statue maker. She is feeling much improved. Coughing. Ringing up some phlegm. Lots of chest congestion. Wheezing. No fever no chills. No nausea vomiting or diarrhea. Review of Systems A 12 point review of system is positive for shortness of breath cough and minimal phlegm production. Lots of chest congestion. Symptoms have been present for the last couple weeks getting worse. No fever no chills. Not coughing up any blood. No chest pain or chest discomfort. No GI complaints or complaints at this time. 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 History of Any Multi-Drug Resistant Organisms: None Reported Past Surgical History: Appendectomy, Back Surgery, Bariatric Surgery, Section, Cholecystectomy, Joint Replacement, Tubal Ligation Additional Past Surgical History / Comment(s): BACK SX X2 including a fusion, has CLC implanted in back (tens unit), cervical fusion, 11-06-15 LAP GABRIEL EN Y, EGDs and EGD with dilation and removal of a staple that had migrated, colonoscopy/benign polypectomy, bilateral knee injections. Past Anesthesia/Blood Transfusion Reactions: Motion Sickness Additional Past Anesthesia/Blood Transfusion Reaction / Comment(s): Pt states she has never received blood. Past Psychological History: Depression Additional Psychological History / Comment(s): Pt lives in home with . Pt states she has depression and is on meds for that which have been very effective. There are adult children in the home. Pt is independent. Smoking Status: Former smoker Past Alcohol Use History: None Reported Additional Past Alcohol Use History / Comment(s): quit smoking JAN 11. smoked >25 years-1 ppd. Past Drug Use History: None Reported - Past Family History Sister(s) Family Medical History: Myocardial Infarction (OR) Additional Family Medical History / Comment(s): at age 43 if OR Mother Family Medical History: Coronary Artery Disease (CAD), Myocardial Infarction (OR ) Additional Family Medical History / Comment(s): Mother at age 62 of OR. Father Family Medical History: Coronary Artery Disease (CAD), Diabetes Mellitus, Myocardial Infarction (OR) Additional Family Medical History / Comment(s): Father in his 40's of a OR. Medications and Allergies Home Medications Medication Instructions Recorded Confirmed Type Albuterol Nebulized [Ventolin 2.5 mg INHALATION RT-QID 07/07/13 06/10/16 History Nebulized] Venlafaxine HCl [Effexor XR] 150 mg PO BID 01/12/15 06/10/16 History oxyCODONE-APAP 10-325MG [Percocet 1 tab PO Q6HR PRN 01/12/15 06/10/16 History 10-325 mg] Tiotropium [place] [Spiriva] 1 cap INHALATION RT-DAILY 03/09/15 06/10/16 History Baclofen 10 mg PO TID 05/31/15 06/10/16 History Albuterol Sulfate [Proair Hfa] 2 puff INHALATION RT-Q6H PRN 08/09/15 06/10/16 History Budesonide-Formot 160-4.5 Mcg 2 puff INHALATION RT-BID 08/20/15 06/10/16 History [Symbicort 160-4.5 Mcg Inhaler] Cholecalciferol [Vitamin D3] 2,000 unit PO DAILY 06/10/16 06/10/16 History Allergies Allergy/AdvReac Type Severity Reaction Status Date / Time Mushroom Allergy Nausea & Verified 06/10/16 09:01 Vomiting Physical Exam Osteopathic Statement: *. No significant issues noted on an osteopathic structural exam other than those noted in the History and Physical/Consult. Vitals: Vital Signs Temp Pulse Pulse Pulse Resp BP Pulse Ox 06/12/16 15:00 98.0 F 104 H 22 113/75 96 06/12/16 11:56 92 06/12/16 11:45 86 06/12/16 08:00 88 87 22 06/12/16 07:35 92 06/12/16 07:25 88 06/12/16 07:00 96.3 F L 87 22 100/74 95 06/11/16 23:00 97.4 F L 88 18 103/67 94 L 06/11/16 20:34 92 06/11/16 20:19 90 06/11/16 15:58 94 06/11/16 15:46 96 Intake and Output 06/12/16 06/12/16 06/12/16 06:59 14:59 22:59 Intake Total 480 Balance 480 Intake: Oral 480 Other: Voiding Method Toilet # Voids 2 2 # Bowel Movements 0 Weight 83.5 kg No acute distress, oriented 3. Sitting up in bed. HEENT examination grossly unremarkable. Mucous membranes are moist moist. Teeth are in very poor repair. Neck supple. Full range range of motion. No adenopathy thyromegaly. Neck veins are flat. Cardiovascular examination reveals regular rhythm rate. S1 and S2 normal. No S3-S4 or murmur. Lungs reveal a few scattered expiratory wheezes. Breath sounds are diminished. No rhonchi. No crackles. Breath sounds are not that bad sounding. Breath sounds are equal bilaterally. Abdomen soft, bowel sounds are heard. Extremities are intact. No cyanosis clubbing or edema. Neurologic examination nonfocal Skin is without rash. Results - Laboratory Findings CBC and BMP: 06/12/16 08:48 06/12/16 08:48 PT/INR, D-dimer PT 11.8 sec (9.0-12.0) 06/10/16 09:44 INR 1.2 (<1.1) 06/10/16 09:44 D-Dimer 18.97 mg/L FEU (<0.60) H 06/10/16 09:44 Abnormal lab findings: Abnormal Labs 06/10/16 06/10/16 06/11/16 17:19 20:26 09:24 MCHC 30.9 L RDW 17.1 H Creatinine Glucose POC Glucose (mg/dL) 160 H 122 H 06/11/16 06/11/16 06/12/16 09:24 21:02 08:48 MCHC 30.9 L RDW 16.7 H Creatinine 1.13 H Glucose 62 L POC Glucose (mg/dL) 62 L 06/12/16 06/12/16 08:48 11:36 MCHC RDW Creatinine Glucose 111 H POC Glucose (mg/dL) 104 H - Diagnostic Findings Chest x-ray: image reviewed (Chest x-ray labs and medications are all reviewed.) Assessment and Plan (1) CHF exacerbation Status: Acute (2) COPD (chronic obstructive pulmonary disease) Status: Acute (3) Dyspnea Status: Acute (4) Systolic murmur Status: Acute (5) Acute pulmonary edema Status: Acute (6) COPD with exacerbation Status: Acute (7) Dyspnea Status: Acute (8) COPD (chronic obstructive pulmonary disease) Status: Chronic Plan: Plan dated 06/12/2016 The patient should be on usual medications including short acting beta agonist, short acting muscarinic antagonist, long-acting beta agonist, and inhaled corticosteroids. She should also be on systemic corticosteroids and some oral antibiotic. Her chest x-ray from 1 dated 2 next seemed to show improvement. Hence, this probably relates to some fluid overload. We'll check her labs and x -rays. Additional recommendations suggestions are forthcoming. Prognosis is guarded. She should follow-up with her primary ordinary seaman who is my partner , Dr. Stevens. Time with Patient: Greater than 30
[2016-06-12 17:28] LABS: Glucose,Whole Blood 78 mg/dL (75-99)
[2016-06-12] MEDS: methylPREDNISolone SOD SUCCI 40 MG/ML 1 ML VIAL IV SCH ×2 (17:36→23:08)
--- NOTE | 2016-06-12 17:36 | PN ---
Patient was seen in consultation because of left ventricular failure associated severe mitral moderately severe mitral regurgitation. Pulmonary hypertension. Patient is making fair progress. Patient is advised cardiac work-up as an outpatient when the patient's condition is better. She had a pulse rate of 88 beats per minute and regular, blood pressure 110/70 mmHg. respirations of 20. The patient is making ( ). Neck is no JVD. CARDIOVASCULAR: Examination S1 and S2. French systolic murmur noted in the apex 5/6 with radiation to the axilla. Lungs are clinically clear to auscultation and percussion. ABDOMEN: Soft, no organomegaly. Minimal pedal edema. Patient is making fair progress. We will require full cardiac work-up, possibly mitral valve repair or replacement at a later time.
--- NOTE | 2016-06-12 18:38 | P.PN ---
Subjective Principal diagnosis: Acute diastolic congestive heart failure Patient is a 55-year-old female who presented to [facility] due to worsening shortness of breath Patient has a known history of diastolic congestive heart failure she had evidence of exacerbation with pulmonary congestion on chest x-ray and elevated BNP D-dimer was elevated computed tomography scan of the chest was done and did not reveal any evidence of pulmonary embolism however it revealed evidence of patchy infiltrate suggestive of pneumonitis Patient also had an incidental finding of thyroid nodule Today she is feeling somewhat better her shortness of breath has improved she is having occasional cough Otherwise she denies any complaint Objective - Vital Signs Vital signs: Vital Signs Temp 98.0 F 06/12/16 15:00 Pulse 94 06/12/16 17:19 Resp 22 06/12/16 15:00 BP 113/75 06/12/16 15:00 Pulse Ox 96 06/12/16 15:00 Intake & Output 06/11/16 06/12/16 06/12/16 18:59 06:59 18:59 Intake Total 240 480 Balance 240 480 Weight 83.5 kg Intake: Oral 240 480 Other: Voiding Method Toilet # Voids 4 2 2 # Bowel Movements 0 0 - Exam In general patient is alert and oriented 3 in no apparent distress HEENT head normocephalic and atraumatic Neck is supple no jugular venous distention no goiter no lymphadenopathy Chest is clear to auscultation no wheezing Cardiac exam reveals regular heart sounds no gallops no murmurs Abdomen is soft nontender no organomegaly Extremity exam reveals no edema no cyanosis or clubbing - Labs CBC & Chem 7: 06/12/16 08:48 06/12/16 08:48 Labs: Abnormal Lab Results - Last 24 Hours (Table) 06/11/16 06/12/16 06/12/16 Range/Units 21:02 08:48 08:48 MCHC 30.9 L (31.0-37.0) g/dL RDW 16.7 H (11.5-15.5) % Glucose 111 H (74-99) mg/dL POC Glucose (mg/dL) 62 L (75-99) mg/dL 06/12/16 Range/Units 11:36 MCHC (31.0-37.0) g/dL RDW (11.5-15.5) % Glucose (74-99) mg/dL POC Glucose (mg/dL) 104 H (75-99) mg/dL Assessment and Plan Plan: #1 acute diastolic congestive heart failure continue with IV Lasix #2 pneumonitis patient was started on IV Rocephin and IV Zithromax Will monitor closely #3 thyroid nodule at this time will defer for management as outpatient #4 thoracic aortic aneurysm vascular surgery consultation was obtained #5 elevated d-dimer on admission CT angiogram negative for pulmonary embolism #6 underlying history of COPD #7 underlying history of diabetes mellitus millimeters #8 chronic pain syndrome was multiple previous back surgeries Patient improving possible discharge in the next 1-2 days awaiting pulmonary input
[2016-06-12 21:41] LABS: Glucose,Whole Blood 173 mg/dL (75-99)
[2016-06-12] MEDS: TEMAZEPAM 15 MG CAP PO PRN (23:08)
[2016-06-13 00:09] VITALS: RESP 16
[2016-06-13] MEDS: IBUPROFEN 800 MG TAB PO PRN ×2 (02:24→06:38)
[2016-06-13] MEDS: methylPREDNISolone SOD SUCCI 40 MG/ML 1 ML VIAL IV SCH ×3 (06:07→11:44)
[2016-06-13] MEDS: oxyCODONE-APAP 10-325MG 1 EACH TAB PO PRN (06:07)
[2016-06-13] MEDS: SYMBICORT 160-4.5 MCG INHALER INHALATION SCH (06:58)
[2016-06-13] MEDS: ALBUTEROL NEBULIZED 2.5 MG/3 ML INHALATION SCH ×2 (06:58→13:19)
[2016-06-13] MEDS: TIOTROPIUM 18 MCG/PUFF INHALER INHALATION SCH (07:05)
[2016-06-13 07:20] LABS: Glucose,Whole Blood 166 mg/dL (75-99)
[2016-06-13 07:28] VITALS: BP 111/73; TEMP 96.9
[2016-06-13] MEDS: PANTOPRAZOLE 40 MG TABLET PO SCH (08:20)
[2016-06-13] MEDS: VENLAFAXINE HCL ER 150 MG CAP PO SCH (08:20)
[2016-06-13] MEDS: BACLOFEN 10 MG TAB PO SCH (08:20)
[2016-06-13] MEDS: FUROSEMIDE 10 MG/ML 4 ML VIAL IV SCH (08:21)
[2016-06-13] MEDS: INSULIN LISPRO (humaLOG) 300 UNIT/3 ML VIAL SQ SCH ×2 (08:23→11:43)
[2016-06-13] MEDS: HEPARIN SODIUM,PORCINE 5,000 UNIT/ML 1 ML VIAL SQ SCH (08:24)
[2016-06-13 09:28] LABS: ALT 19 U/L (9-52); AST 23 U/L (14-36); Alkaline Phosphatase 116 U/L (38-126); Anion Gap 18 mmol/L; Blood Urea Nitrogen 21 mg/dL (7-17); Calcium 9.3 mg/dL (8.4-10.2); Carbon Dioxide 23 mmol/L (22-30); Chloride 96 mmol/L (98-107); Glucose 294 mg/dL (74-99); Non-African American GFR(MDRD) 50 (>60 ml/min/1.73 sqM); Potassium 4.1 mmol/L (3.5-5.1); Sodium 137 mmol/L (137-145); Total Bilirubin 0.9 mg/dL (0.2-1.3); Total Protein 7.7 g/dL (6.3-8.2)
[2016-06-13 09:35] LABS: Basophils % (A) 0 %; CH 26.6; CHCM 31.2; Eosinophils % (A) 0 %; HCT 44.2 % (34.0-46.0); HDW 2.94; Hypochromasia Moderate; Luc # (Auto) 0.04; Luc % (Auto) 0; Lymphocytes # (A) 0.6 k/uL (1.0-4.8); Lymphocytes % (A) 7 %; MCH 27.1 pg (25.0-35.0); MCHC 31.6 g/dL (31.0-37.0); MCV 85.8 fL (80.0-100.0); Mean Platelet Volume 8.4; Monocytes # (A) 0.2 k/uL (0-1.0); Monocytes % (A) 2 %; Neutrophils # (A) 7.5 k/uL (1.3-7.7); Neutrophils % (A) 90 %; RBC 5.16 m/uL (3.80-5.40); WBC 8.3 k/uL (3.8-10.6); WBC (Perox) 8.78
[2016-06-13] MEDS: CHOLECALCIFEROL 1,000 UNIT TAB PO SCH (11:42)
[2016-06-13] MEDS: VITAMIN A 10,000 UNIT CAPSULE PO SCH (11:43)
--- NOTE | 2016-06-13 12:23 | P.DS ---
Providers Date of admission: 06/10/16 11:24 Expected date of discharge: 06/13/16 Attending physician: Nael Hager Consults: 06/10/16 11:26 Consult Physician Urgent Consulting Provider: [facility] Consult Reason/Comments: CHF Do you want consulting provider notified?: Yes 06/10/16 14:59 Consult Physician Routine Consulting Provider: Tyron Falk Consult Reason/Comments: ascending thoracic aorta measuring 4.3 cm Do you want consulting provider notified?: Yes 06/11/16 12:56 Consult Physician Routine Consulting Provider: Manohar Stevens Consult Reason/Comments: pneumonia Do you want consulting provider notified?: Yes Primary care physician: Nael Madan [facility] Course: Discharge diagnosis #1 acute diastolic congestive heart failure continue with IV Lasix #2 pneumonitis patient was started on IV Rocephin and IV Zithromax Will monitor closely #3 thyroid nodule at this time will defer for management as outpatient #4 thoracic aortic aneurysm vascular surgery consultation was obtained. No surgical intervention required at this time. The recommending a computed tomography scan of the chest in 1 year for further evaluation of the aortic aneurysm. #5 elevated d-dimer on admission CT angiogram negative for pulmonary embolism #6 underlying history of COPD #7 underlying history of diabetes mellitus millimeters #8 chronic pain syndrome was multiple previous back surgeries #9 acute COPD exacerbation Hospital course This is a 55-year-old female presented to the hospital worsening shortness of breath. She was found have evidence of an acute diastolic CHF exacerbation. Pulmonary congestion noted on chest x-ray with elevated BNP. She also had elevated d-dimer and computed tomography scan of the chest was negative for PE however did reveal evidence of possible pneumonitis. She started on antibiotics. There is also incidental finding of a thyroid nodule. She had thyroid ultrasound completed showing a heterogeneous collateral parenchymal enlarged right lobe. Correlate for possible goiter. And a 1.1 cm solid nodule of the left lower pole. Additional 6 mm and small nodules on each side. Patient will have further work up and possible biopsy of these nodules in outpatient setting. Patient was seen by cardiology and pulmonary service during this admission. She was treated with IV Lasix for CHF exacerbation. And she'll go home with Lasix 40 mg by mouth daily. As well as a potassium supplement. As far as her pneumonitis we'll continue Augmentin for 7 more days. And patient is to complete a prednisone taper. She'll follow pulmonary service and outpatient setting. Patient's shortness of breath has improved. She is medically stable for discharge. Also note she had a venous Doppler of the lower extremities which was negative for DVT. Echo reveals an EF of 60-65% . She did have evidence of moderate to severe mitral regurgitation. And she' ll follow-up with cardiology. Also evidence of severe pulmonary hypertension. Mild to moderate tricuspid regurgitation. Patient is medically stable for discharge. She's been cleared by consulting physicians. Please refer to chart for further details. Patient Condition at Discharge: Stable Plan - Discharge Summary New Discharge Prescriptions: Amoxic-Pot Clav 875-125Mg [Augmentin 875-125] 1 tab PO Q12HR #14 tablet Furosemide [Lasix] 40 mg PO DAILY #30 tablet Potassium Chloride ER [K-Dur 20] 20 meq PO DAILY #30 tab Temazepam [Restoril] 15 mg PO HS PRN #10 cap PRN Reason: Insomnia predniSONE 10 mg PO DIRECTED #20 tab Discharge Medication List Albuterol Nebulized [Ventolin Nebulized] 2.5 mg INHALATION RT-QID 07/07/13 [ History] Venlafaxine HCl [Effexor XR] 150 mg PO BID 01/12/15 [History] oxyCODONE-APAP 10-325MG [Percocet 10-325 mg] 1 tab PO Q6HR PRN 01/12/15 [History ] Tiotropium [place] [Spiriva] 1 cap INHALATION RT-DAILY 03/09/15 [History] Baclofen 10 mg PO TID 05/31/15 [History] Albuterol Sulfate [Proair Hfa] 2 puff INHALATION RT-Q6H PRN 08/09/15 [History] Budesonide-Formot 160-4.5 Mcg [Symbicort 160-4.5 Mcg Inhaler] 2 puff INHALATION RT-BID 08/20/15 [History] Omeprazole 40 mg PO DAILY #30 capsule. 02/02/16 [Rx] Vitamin A 8,000 unit PO DAILY #30 capsule 06/02/16 [Rx] Cholecalciferol [Vitamin D3] 2,000 unit PO DAILY 06/10/16 [History] Amoxic-Pot Clav 875-125Mg [Augmentin 875-125] 1 tab PO Q12HR #14 tablet [Rx] Furosemide [Lasix] 40 mg PO DAILY #30 tablet 06/13/16 [Rx] Potassium Chloride ER [K-Dur 20] 20 meq PO DAILY #30 tab 06/13/16 [Rx] Temazepam [Restoril] 15 mg PO HS PRN #10 cap 06/13/16 [Rx] predniSONE 10 mg PO DIRECTED #20 tab 06/13/16 [Rx] Follow up Appointment(s)/Referral(s): Nael Hager MD [Primary Care Provider] - 1 Week Manohar Stevens MD [STAFF PHYSICIAN] - 1 Week Dimple Ruiz MD [STAFF PHYSICIAN] - 1 Week Activity/Diet/Wound Care/Special Instructions: Diet: cardiac Activity: as tolerated Discharge Disposition: HOME SELF-CARE
[2016-06-13 12:34] LABS: Glucose,Whole Blood 201 mg/dL (75-99)
[2016-06-13 13:22] VITALS: PULSE 98
== END 2016-06-13 14:11 | disposition home or self-care (01) | DRG 291 ==
LOC: EC 08:39 → 4MS4W 11:24
PROVIDERS: ADMIT Internal Medicine; ATTEND Internal Medicine
DX: I11.0 Hypertensive heart disease with heart failure (principal); J18.9 Pneumonia, unspecified organism; J44.1 Chronic obstructive pulmonary disease with (acute) exacerbation; J44.0 Chronic obstructive pulmonary disease with (acute) lower respiratory infection; I27.2 Other secondary pulmonary hypertension; I71.2 Thoracic aortic aneurysm, without rupture; I48.91 Unspecified atrial fibrillation; F32.9 Major depressive disorder, single episode, unspecified; G43.909 Migraine, unspecified, not intractable, without status migrainosus; I08.1 Rheumatic disorders of both mitral and tricuspid valves; E04.1 Nontoxic single thyroid nodule; I50.33 Acute on chronic diastolic (congestive) heart failure; E11.9 Type 2 diabetes mellitus without complications; G89.4 Chronic pain syndrome; K21.9 Gastro-esophageal reflux disease without esophagitis; M10.9 Gout, unspecified; M19.90 Unspecified osteoarthritis, unspecified site; M54.2 Cervicalgia; M54.9 Dorsalgia, unspecified; K44.9 Diaphragmatic hernia without obstruction or gangrene; Z79.899 Other long term (current) drug therapy; Z98.84 Bariatric surgery status; Z98.1 Arthrodesis status; Z96.60 Presence of unspecified orthopedic joint implant; Z87.891 Personal history of nicotine dependence; Z82.49 Family history of ischemic heart disease and other diseases of the circulatory system
CPT/HCPCS: 36415; 71020; 71275; 76536; 80053; 82550; 82553; 83036; 83735; 83880; 84439; 84443; 84484; 85025; 85379; 85610; 85730; 93005; 93306; 93970; 94640; 94760; 96374; 99285

== ENCOUNTER 2016-06-26 14:37 | Emergency (ER) | payer MEDICARE, OTHER ==
[2016-06-26 14:51] VITALS: RESP 18
[2016-06-26] MEDS ORDERED: SODIUM CHLORIDE 0.9% 1,000 ML IV STA (15:10)
[2016-06-26] MEDS ORDERED: LORazepam 2 MG/ML SYRINGE IV STA (15:12)
--- NOTE | 2016-06-26 15:14 | ED ---
General Adult HPI - General Chief complaint: Neuro Symptoms/Deficit Stated complaint: Confusion Time Seen by Provider: 06/26/16 15:02 Source: patient, RN notes reviewed Mode of arrival: wheelchair Limitations: no limitations - History of Present Illness Initial comments: Patient is a pleasant 55-year-old female presenting to the emergency department with concerns regarding confusion. Symptoms have been intermittent over the past couple of days. Patient does admit to feeling somewhat anxious. Patient was recently discharged from the hospital with congestive heart failure and found to have a problem with her heart valve. Patient states she is having further evaluation and will likely be pending surgery for this. No dyspnea at this time. Patient states she has noticed having tremors of her arms and legs, especially while at rest. Patient has been forgetful at times. Patient was driving to sisal picker her dog and come home and did not recall what she was doing. Patient has noticed some episodes of slurred speech as well. - Related Data Home Medications Medication Instructions Recorded Confirmed Albuterol Nebulized [Ventolin 2.5 mg INHALATION RT-QID 07/07/13 06/26/16 Nebulized] Venlafaxine HCl [Effexor XR] 150 mg PO BID 01/12/15 06/26/16 oxyCODONE-APAP 10-325MG [Percocet 1 tab PO Q6HR PRN 01/12/15 06/26/16 10-325 mg] Tiotropium Silas [Spiriva] 1 cap INHALATION RT-DAILY 03/09/15 06/26/16 Baclofen 10 mg PO TID 05/31/15 06/26/16 Albuterol Sulfate [Proair Hfa] 2 puff INHALATION RT-Q6H PRN 08/09/15 06/26/16 Budesonide-Formot 160-4.5 Mcg 2 puff INHALATION RT-BID 08/20/15 06/26/16 [Symbicort 160-4.5 Mcg Inhaler] Cholecalciferol [Vitamin D3] 2,000 unit PO DAILY 06/10/16 06/26/16 Previous Rx's Medication Instructions Recorded Omeprazole 40 mg PO DAILY #30 capsule. 02/02/16 Vitamin A 8,000 unit PO DAILY #30 capsule 06/02/16 Furosemide [Lasix] 40 mg PO DAILY #30 tablet 06/13/16 Potassium Chloride ER [K-Dur 20] 20 meq PO DAILY #30 tab 06/13/16 Allergies Allergy/AdvReac Type Severity Reaction Status Date / Time Mushroom Allergy Nausea & Verified 06/26/16 15:10 Vomiting Review of Systems ROS Statement: Those systems with pertinent positive or pertinent negative responses have been documented in the HPI. ROS Other: All systems not noted in ROS Statement are negative. Constitutional: Denies: fever Eyes: Denies: eye pain ENT: Denies: ear pain Respiratory: Denies: cough Cardiovascular: Denies: chest pain Endocrine: Denies: fatigue Gastrointestinal: Denies: abdominal pain Genitourinary: Denies: dysuria Musculoskeletal: Denies: back pain Skin: Denies: rash Neurological: Reports: confusion. 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 History of Any Multi-Drug Resistant Organisms: None Reported Past Surgical History: Appendectomy, Back Surgery, Bariatric Surgery, Section, Cholecystectomy, Joint Replacement, Tubal Ligation Additional Past Surgical History / Comment(s): BACK SX X2 including a fusion, has CLC implanted in back (tens unit), cervical fusion, 9--16 LAP GABRIEL EN Y, EGDs and EGD with dilation and removal of a staple that had migrated, colonoscopy/benign polypectomy, bilateral knee injections. Past Anesthesia/Blood Transfusion Reactions: Motion Sickness Additional Past Anesthesia/Blood Transfusion Reaction / Comment(s): Pt states she has never received blood. Past Psychological History: Depression Additional Psychological History / Comment(s): Pt lives in home with . Pt states she has depression and is on meds for that which have been very effective. There are adult children in the home. Pt is independent. Smoking Status: Former smoker Past Alcohol Use History: None Reported Additional Past Alcohol Use History / Comment(s): quit smoking JAN 11. smoked >25 years-1 ppd. Past Drug Use History: None Reported - Past Family History Sister(s) Family Medical History: Myocardial Infarction ([place]) Additional Family Medical History / Comment(s): at age 43 if [place] Mother Family Medical History: Coronary Artery Disease (CAD), Myocardial Infarction ([place] ) Additional Family Medical History / Comment(s): Mother at age 62 of [place]. Father Family Medical History: Coronary Artery Disease (CAD), Diabetes Mellitus, Myocardial Infarction ([place]) Additional Family Medical History / Comment(s): Father in his 40's of a [place]. General Exam Limitations: no limitations General appearance: alert, in no apparent distress Head exam: Present: atraumatic Eye exam: Present: normal appearance, PERRL ENT exam: Present: normal oropharynx Neck exam: Present: normal inspection Respiratory exam: Present: normal lung sounds bilaterally Cardiovascular Exam: Present: regular rate, normal rhythm, systolic murmur GI/Abdominal exam: Present: soft. Absent: tenderness Extremities exam: Present: normal inspection. Absent: pedal edema, calf tenderness Neurological exam: Present: alert, CN II-XII intact. Absent: motor sensory deficit Expanded Speech: Present: fluid speech Cranial nerves: EOM's Intact: Normal, Facial Sensation: Normal Sensory exam: Upper Extremity Light Touch: Normal, Lower Extremity Light Touch: Normal Motor strength exam: RUE: 5, LUE: 5, RLE: 5, LLE: 5 Psychiatric exam: Present: normal affect, normal mood Skin exam: Present: normal color Course Vital Signs 06/26/16 06/26/16 06/26/16 14:46 15:17 16:15 Temperature 98.2 F 98.4 F 97.4 F L Pulse Rate 93 91 85 Respiratory 18 18 18 Rate Blood Pressure 117/68 116/63 132/74 O2 Sat by Pulse 97 100 95 Oximetry EKG Findings - EKG Comments: EKG Findings:: Normal sinus rhythm at 90. ND 146. QRS 88. QT 422. QTC 516. Normal axis. Normal QRS. Nonspecific T waves. Medical Decision Making - Medical Decision Making Patient reevaluated and resting comfortably in bed. Patient symptom free at this time. Case was discussed in detail with Dr. Hager who agrees of recommendation for admission. Patient was updated on results and plan. Despite this patient does refuse admission. Patient is made aware that mild strokes or TIAs or other similar neurological problem has not been completely ruled out that this time and neurology evaluation is recommended. Patient does demonstrate medical decision making. Patient refuses admission and will leave AGAINST MEDICAL ADVICE. - Lab Data Result diagrams: 06/26/16 15:30 06/26/16 15:30 Lab Results 06/26/16 06/26/16 06/26/16 Range/Units 15:30 15:30 15:30 WBC 8.8 (3.8-10.6) k/uL RBC 4.75 (3.80-5.40) m/uL Hgb 12.9 (11.4-16.0) gm/dL Hct 40.0 (34.0-46.0) % MCV 84.1 (80.0-100.0) fL MCH 27.1 (25.0-35.0) pg MCHC 32.2 (31.0-37.0) g/dL RDW 15.8 H (11.5-15.5) % Plt Count 197 (150-450) k/uL Neutrophils % 67 % Lymphocytes % 22 % Monocytes % 7 % Eosinophils % 0 % Basophils % 1 % Neutrophils # 5.9 (1.3-7.7) k/uL Lymphocytes # 2.0 (1.0-4.8) k/uL Monocytes # 0.6 (0-1.0) k/uL Eosinophils # 0.0 (0-0.7) k/uL Basophils # 0.0 (0-0.2) k/uL PT 11.2 (9.0-12.0) sec INR 1.1 (<1.1) APTT 24.1 (22.0-30.0) sec Sodium (137-145) mmol/L Potassium (3.5-5.1) mmol/L Chloride (98-107) mmol/L Carbon Dioxide (22-30) mmol/L Anion Gap mmol/L BUN (7-17) mg/dL Creatinine (0.52-1.04) mg/dL Est GFR (MDRD) Af Amer (>60 ml/min/1.73 sqM) Est GFR (MDRD) Non-Af (>60 ml/min/1.73 sqM) Glucose (74-99) mg/dL Calcium (8.4-10.2) mg/dL Magnesium (1.6-2.3) mg/dL Total Bilirubin (0.2-1.3) mg/dL AST (14-36) U/L ALT (9-52) U/L Alkaline Phosphatase (38-126) U/L Total Creatine Kinase 41 (30-135) U/L CK-MB (CK-2) 0.6 (0.0-2.4) ng/mL CK-MB (CK-2) Rel Index 1.5 Troponin I <0.012 (0.000-0.034) ng/mL Total Protein (6.3-8.2) g/dL Albumin (3.5-5.0) g/dL Urine Color Urine Appearance (Clear) Urine pH (5.0-8.0) Ur Specific Friendship (1.001-1.035) Urine Protein (Negative) Urine Glucose (UA) (Negative) Urine Ketones (Negative) Urine Blood (Negative) Urine Nitrite (Negative) Urine Bilirubin (Negative) Urine Urobilinogen (<2.0) mg/dL Ur Leukocyte Esterase (Negative) Urine RBC (0-5) /hpf Urine WBC (0-5) /hpf Ur Squamous Epith Cells (0-4) /hpf Calcium Oxalate Crystal (None) /hpf Hyaline Casts (0-2) /lpf Urine Mucus (None) /hpf Urine Opiates Screen (NotDetected) Ur Oxycodone Screen (NotDetected) Urine Methadone Screen (NotDetected) Ur Propoxyphene Screen (NotDetected) Ur Barbiturates Screen (NotDetected) U Tricyclic Antidepress (NotDetected) Ur Phencyclidine Scrn (NotDetected) Ur Amphetamines Screen (NotDetected) U Methamphetamines Scrn (NotDetected) U Benzodiazepines Scrn (NotDetected) Urine Cocaine Screen (NotDetected) U Marijuana (THC) Screen (NotDetected) 06/26/16 06/26/16 06/26/16 Range/Units 15:30 15:30 15:40 WBC (3.8-10.6) k/uL RBC (3.80-5.40) m/uL Hgb (11.4-16.0) gm/dL Hct (34.0-46.0) % MCV (80.0-100.0) fL MCH (25.0-35.0) pg MCHC (31.0-37.0) g/dL RDW (11.5-15.5) % Plt Count (150-450) k/uL Neutrophils % % Lymphocytes % % Monocytes % % Eosinophils % % Basophils % % Neutrophils # (1.3-7.7) k/uL Lymphocytes # (1.0-4.8) k/uL Monocytes # (0-1.0) k/uL Eosinophils # (0-0.7) k/uL Basophils # (0-0.2) k/uL PT (9.0-12.0) sec INR (<1.1) APTT (22.0-30.0) sec Sodium 139 (137-145) mmol/L Potassium 3.9 (3.5-5.1) mmol/L Chloride 104 (98-107) mmol/L Carbon Dioxide 25 (22-30) mmol/L Anion Gap 10 mmol/L BUN 13 (7-17) mg/dL Creatinine 0.93 (0.52-1.04) mg/dL Est GFR (MDRD) Af Amer >60 (>60 ml/min/1.73 sqM) Est GFR (MDRD) Non-Af >60 (>60 ml/min/1.73 sqM) Glucose 100 H (74-99) mg/dL Calcium 9.1 (8.4-10.2) mg/dL Magnesium 1.9 (1.6-2.3) mg/dL Total Bilirubin 0.8 (0.2-1.3) mg/dL AST 28 (14-36) U/L ALT 32 (9-52) U/L Alkaline Phosphatase 113 (38-126) U/L Total Creatine Kinase (30-135) U/L CK-MB (CK-2) (0.0-2.4) ng/mL CK-MB (CK-2) Rel Index Troponin I (0.000-0.034) ng/mL Total Protein 7.3 (6.3-8.2) g/dL Albumin 3.9 (3.5-5.0) g/dL Urine Color Urine Appearance (Clear) Urine pH (5.0-8.0) Ur Specific [place] (1.001-1.035) Urine Protein (Negative) Urine Glucose (UA) (Negative) Urine Ketones (Negative) Urine Blood (Negative) Urine Nitrite (Negative) Urine Bilirubin (Negative) Urine Urobilinogen (<2.0) mg/dL Ur Leukocyte Esterase (Negative) Urine RBC (0-5) /hpf Urine WBC (0-5) /hpf Ur Squamous Epith Cells (0-4) /hpf Calcium Oxalate Crystal (None) /hpf Hyaline Casts (0-2) /lpf Urine Mucus (None) /hpf Urine Opiates Screen Not Detected (NotDetected) Ur Oxycodone Screen Detected H (NotDetected) Urine Methadone Screen Not Detected (NotDetected) Ur Propoxyphene Screen Not Detected (NotDetected) Ur Barbiturates Screen Not Detected (NotDetected) U Tricyclic Antidepress Not Detected (NotDetected) Ur Phencyclidine Scrn Not Detected (NotDetected) Ur Amphetamines Screen Not Detected (NotDetected) U Methamphetamines Scrn Not Detected (NotDetected) U Benzodiazepines Scrn Detected H (NotDetected) Urine Cocaine Screen Not Detected (NotDetected) U Marijuana (THC) Screen Not Detected (NotDetected) 06/26/16 Range/Units 15:40 WBC (3.8-10.6) k/uL RBC (3.80-5.40) m/uL Hgb (11.4-16.0) gm/dL Hct (34.0-46.0) % MCV (80.0-100.0) fL MCH (25.0-35.0) pg MCHC (31.0-37.0) g/dL RDW (11.5-15.5) % Plt Count (150-450) k/uL Neutrophils % % Lymphocytes % % Monocytes % % Eosinophils % % Basophils % % Neutrophils # (1.3-7.7) k/uL Lymphocytes # (1.0-4.8) k/uL Monocytes # (0-1.0) k/uL Eosinophils # (0-0.7) k/uL Basophils # (0-0.2) k/uL PT (9.0-12.0) sec INR (<1.1) APTT (22.0-30.0) sec Sodium (137-145) mmol/L Potassium (3.5-5.1) mmol/L Chloride (98-107) mmol/L Carbon Dioxide (22-30) mmol/L Anion Gap mmol/L BUN (7-17) mg/dL Creatinine (0.52-1.04) mg/dL Est GFR (MDRD) Af Amer (>60 ml/min/1.73 sqM) Est GFR (MDRD) Non-Af (>60 ml/min/1.73 sqM) Glucose (74-99) mg/dL Calcium (8.4-10.2) mg/dL Magnesium (1.6-2.3) mg/dL Total Bilirubin (0.2-1.3) mg/dL AST (14-36) U/L ALT (9-52) U/L Alkaline Phosphatase (38-126) U/L Total Creatine Kinase (30-135) U/L CK-MB (CK-2) (0.0-2.4) ng/mL CK-MB (CK-2) Rel Index Troponin I (0.000-0.034) ng/mL Total Protein (6.3-8.2) g/dL Albumin (3.5-5.0) g/dL Urine Color Yellow Urine Appearance Clear (Clear) Urine pH 5.0 (5.0-8.0) Ur Specific [place] 1.012 (1.001-1.035) Urine Protein Negative (Negative) Urine Glucose (UA) Negative (Negative) Urine Ketones Negative (Negative) Urine Blood Negative (Negative) Urine Nitrite Negative (Negative) Urine Bilirubin Negative (Negative) Urine Urobilinogen <2.0 (<2.0) mg/dL Ur Leukocyte Esterase Trace H (Negative) Urine RBC 1 (0-5) /hpf Urine WBC 1 (0-5) /hpf Ur Squamous Epith Cells 1 (0-4) /hpf Calcium Oxalate Crystal Moderate H (None) /hpf Hyaline Casts 1 (0-2) /lpf Urine Mucus Rare H (None) /hpf Urine Opiates Screen (NotDetected) Ur Oxycodone Screen (NotDetected) Urine Methadone Screen (NotDetected) Ur Propoxyphene Screen (NotDetected) Ur Barbiturates Screen (NotDetected) U Tricyclic Antidepress (NotDetected) Ur Phencyclidine Scrn (NotDetected) Ur Amphetamines Screen (NotDetected) U Methamphetamines Scrn (NotDetected) U Benzodiazepines Scrn (NotDetected) Urine Cocaine Screen (NotDetected) U Marijuana (THC) Screen (NotDetected) - Radiology Data Radiology results: report reviewed (Computed tomography scan of the brain reveals no acute process.), image reviewed (Two-view chest x-ray shows no acute process.) Disposition Clinical Impression: Transient confusion Disposition: Left Against Medical Advice Instructions: Altered Mental Status (ED), Transient Ischemic Attack (ED), Anxiety (ED) Additional Instructions: Please follow-up with Dr. Hager in the next week or 2 for recheck. Return for confusion, weakness, slurred speech, loss of sensation, worsening symptoms or any other concerns. You're leaving AGAINST MEDICAL ADVICE. Aspirin daily until further advised by Dr. Hager. Referrals: Nael Hager MD [Primary Care Provider] - 1-2 days Time of Disposition: 16:53
[2016-06-26 15:46] LABS: Basophils % (A) 1 %; CHCM 32.3; Eosinophils % (A) 0 %; HDW 2.81; HGB 12.9 gm/dL (11.4-16.0); Luc # (Auto) 0.31; Luc % (Auto) 4; Lymphocytes % (A) 22 %; MCH 27.1 pg (25.0-35.0); MCHC 32.2 g/dL (31.0-37.0); MCV 84.1 fL (80.0-100.0); Mean Platelet Volume 8.2; Monocytes # (A) 0.6 k/uL (0-1.0); Monocytes % (A) 7 %; Neutrophils # (A) 5.9 k/uL (1.3-7.7); Neutrophils % (A) 67 %; RBC 4.75 m/uL (3.80-5.40); RDW 15.8 % (11.5-15.5); WBC 8.8 k/uL (3.8-10.6); WBC (Perox) 9.01
[2016-06-26 15:54] LABS: INR 1.1 (<1.1); Partial Thromboplastin Time 24.1 sec (22.0-30.0); Prothrombin Time 11.2 sec (9.0-12.0)
[2016-06-26 16:04] LABS: Appearance,Urine Clear (Clear); Bilirubin,Urine Negative (Negative); Calcium Oxalate Crystals,Urine Moderate /hpf; Glucose,Urine (UA) Negative (Negative); Ketones,Urine Negative (Negative); Leukocyte Esterase,Urine Trace (Negative); Mucus,Urine Rare /hpf; Nitrite,Urine Negative (Negative); Particle Count 1601; Protein,Urine Negative (Negative); RBC,Urine 1 /hpf (0-5); Specific Gravity,Urine 1.012 (1.001-1.035); Squamous Epithelial Cell,Urine 1 /hpf (0-4); UA Billing (MACRO vs. MICRO) MICRO; Urobilinogen,Urine <2.0 mg/dL (<2.0); WBC,Urine 1 /hpf (0-5)
[2016-06-26 16:05] LABS: Creatine Kinase 41 U/L (30-135)
[2016-06-26 16:15] LABS: ALT 32 U/L (9-52); AST 28 U/L (14-36); Alkaline Phosphatase 113 U/L (38-126); Anion Gap 10 mmol/L; Blood Urea Nitrogen 13 mg/dL (7-17); Calcium 9.1 mg/dL (8.4-10.2); Carbon Dioxide 25 mmol/L (22-30); Chloride 104 mmol/L (98-107); Glucose 100 mg/dL (74-99); Non-African American GFR(MDRD) >60 (>60 ml/min/1.73 sqM); Potassium 3.9 mmol/L (3.5-5.1); Sodium 139 mmol/L (137-145); Total Bilirubin 0.8 mg/dL (0.2-1.3); Total Protein 7.3 g/dL (6.3-8.2)
[2016-06-26 16:19] LABS: Creatine Kinase MB 0.6 ng/mL (0.0-2.4); Troponin I <0.012 ng/mL (0.000-0.034)
--- NOTE | 2016-06-26 16:24 | CT ---
EXAMINATION TYPE: CT brain wo con DATE OF EXAM: 06/26/2016 4:18 PM COMPARISON: NONE HISTORY: Neuro Deficits CT DLP: [address] of the brain was performed. The ventricles, basal cisterns and sulci overlying the cerebral convexities demonstrate mild enlargem ent. There is no evidence for intracranial hemorrhage or sulcal effacement. There is decreased attenuation about the periventricular white matter and deep white matter of both c erebral hemispheres, compatible with chronic small vessel ischemia. Differential diagnosis does inclu de demyelination. No mass effects are seen.No midline shift. Osseous calvarium is intact. If symptoms persist consider MRI. IMPRESSION: 1. Age related atrophic and chronic small vessel ischemic change without acute intracranial process s een at this time.
--- NOTE | 2016-06-26 16:26 | XR ---
EXAMINATION TYPE: XR chest 2V DATE OF EXAM: 06/26/2016 4:20 PM COMPARISON: 06/11/2016 HISTORY: Shortness of breath TECHNIQUE: Frontal and lateral views of the chest are obtained. FINDINGS: Scattered senescent parenchymal changes noted. Hyperinflation compatible with COPD. No evidence for infiltrate. No evidence for atelectasis. Heart size is enlarged without evidence for overt failure. Mediastinal structures are stable and grossly unremarkable. No evidence for hilar prominence. Degenerative changes dorsal spine. IMPRESSION: 1. No evidence for acute pulmonary disease.
[2016-06-26 17:35] VITALS: BP 122/77; PULSE 86; TEMP 98.4
== END 2016-06-26 17:35 | disposition left against medical advice (07) ==
LOC: EC 14:37
DX: R41.0 Disorientation, unspecified (principal); J44.9 Chronic obstructive pulmonary disease, unspecified; F32.9 Major depressive disorder, single episode, unspecified; Z91.018 Allergy to other foods; Z87.891 Personal history of nicotine dependence; Z53.20 Procedure and treatment not carried out because of patient's decision for unspecified reasons; Z79.51 Long term (current) use of inhaled steroids; Z79.899 Other long term (current) drug therapy
CPT/HCPCS: 99284; 96374; 36415; 93005; 80053; 82550; 82553; 83735; 84484; 85025; 85610; 85730; 81001; 80306; 71020; 70450; J2060

== ENCOUNTER 2016-07-02 06:30 | Day surgery (SDC) | payer MEDICARE, OTHER ==
[2016-06-28 13:35] VITALS: BMI 28.0
[~2016-07-02 06:30] MED LIST: ALPRAZolam 0.25 MG TAB PO PRN; ALPRAZolam 0.5 MG TAB PO PRN; ASPIRIN 325 MG TAB PO STA; ATORVASTATIN 80 MG TAB PO STA; NITROGLYCERIN SL TABS 0.4 MG TAB SUBLINGUAL PRN; SODIUM CHLORIDE 0.9% 1,000 ML in EMPTY BAG 1 BAG IV ONE
[2016-07-02] MEDS ORDERED: ASPIRIN 81 MG CHEW ONE (06:47)
[2016-07-02 06:54] VITALS: TEMP 98.1
[2016-07-02] MEDS ORDERED: fentaNYL (PF) 50 MCG/ML 2 ML AMP ONE (07:06)
[2016-07-02] MEDS ORDERED: IV FLUID CONTINUATION 1,000 ML IV ONE (07:20)
[2016-07-02] MEDS ORDERED: BENZOCAINE SPRAY 100 APPLIC/CAN MUCOUS MEM ONE (07:23)
[2016-07-02] MEDS ORDERED: fentaNYL (PF) 50 MCG/ML 2 ML AMP IV ONE (07:25)
[2016-07-02] MEDS: MIDAZOLAM 2 MG/2 ML VIAL IV ONE ×4 (07:26→07:28)
--- NOTE | 2016-07-02 07:56 | ECHOT ---
DATE OF SERVICE: CLINICAL INFORMATION: INDICATION: Severe mitral regurgitation. PROCEDURE NOTE: After obtaining informed consent, transesophageal echocardiogram is performed in the left lateral position using an Omniplane probe. Local and IV sedation were obtained using Xylocaine spray, Versed and fentanyl. Patient tolerated the procedure well without any obvious immediate complications. FINDINGS: 1. Mitral valve: Mitral valve shows poor coaptation of the leaflets with flail of the anterior mitral leaflets. There is severe mitral regurgitation noted. 2. Left atrium appears severely enlarged. 3. Right atrium, right ventricle seen within normal limits. 4. Left ventricle has normal size and systolic function with an ejection fraction of 60%. 5. Aortic valve is a 3 leaflet valve. There is no evidence of aortic stenosis or regurgitation. 6. Tricuspid valve shows mild tricuspid regurgitation. 7. Interatrial septum: There is no evidence of [id number] shunt by color flow Doppler or [id number] shunt by saline contrast study. 8. Aorta shows mild atherosclerotic changes. CONCLUSIONS: 1. Severe posteriorly directed mitral regurgitation secondary flail anterior mitral leaflet. 2. Severe left atrial enlargement. 3. Normal left ventricular function. PLAN: I am going to perform a left heart catheterization and refer the patient for the mitral valve repair or replacement.
[2016-07-02] MEDS ORDERED: oxyCODONE-APAP 10-325MG 1 EACH TAB PO PRN (09:01)
[2016-07-02] MEDS ORDERED: LIDOCAINE 2% INJ 20 MG/ML (20 ML MDV) ONE (10:18)
[2016-07-02] MEDS ORDERED: MIDAZOLAM 2 MG/2 ML VIAL ONE (10:49)
[2016-07-02] MEDS ORDERED: MIDAZOLAM 2 MG/2 ML VIAL IV ONE (10:50)
[2016-07-02] MEDS ORDERED: LIDOCAINE 2% INJ 20 MG/ML SQ ONE (10:51)
[2016-07-02] MEDS ORDERED: IOHEXOL 350 MG/ML 125ML BOTTLE INJ ONE (11:04)
[2016-07-02] MEDS ORDERED: RX INFO: IV CONTRAST WAS GIVEN 1 EACH MISC MISCELLANE PRN (11:10)
[2016-07-02] MEDS ORDERED: SODIUM CHLORIDE 0.9% 1,000 ML IV SCH (11:15)
--- NOTE | 2016-07-02 11:35 | CC ---
DATE OF SERVICE: INDICATION: Mitral regurgitation. After obtaining informed consent, left heart catheterization, coronary angiogram and LV gram are performed via the right femoral artery using standard Kori catheters. Patient tolerated the procedure well without any obvious immediate complications. A femoral angiogram was performed and addition was made for manual hemostasis. FINDINGS: 1. LEFT VENTRICULOGRAM: Left ventriculogram was performed in BERNSTEIN position and shows an ejection fraction of around 50% to 55% with 3+ mitral regurgitation. 2. HEMODYNAMICS: Left ventricular end-diastolic pressure is 12 to 14 mm. 3. ANGIOGRAPHIC DATA: LEFT MAIN CORONARY ARTERY: Left main coronary artery is a normal-sized vessel and is free of stenosis. Divides into left anterior descending coronary artery and circumflex coronary artery. Circumflex coronary artery and its branches are free of significant stenosis. LAD shows a mild atherosclerotic plaque in its proximal which at its worse seems to be around 40% stenosis. Right coronary artery is a large dominant vessel and is free of significant stenosis. CONCLUSION: 1. Severe mitral regurgitation secondary to partial flail of the anterior mitral leaflets. 2. Mild to moderate lesion within the left anterior descending coronary artery. PLAN: Patient will need mitral valve repair. He does not require any revascularization of the LAD at this time. If it progresses down the road, we will consider catheter-based revascularization.
[2016-07-02] MEDS ORDERED: ATENOLOL 25 MG TAB PO STA (12:06)
[2016-07-02 12:44] LABS: INR 1.1 (<1.1); Prothrombin Time 11.4 sec (9.0-12.0)
[2016-07-02 12:54] LABS: Glucose 82 mg/dL (74-99); Total Protein 6.5 g/dL (6.3-8.2)
[2016-07-02 12:55] LABS: ALT 30 U/L (9-52); AST 27 U/L (14-36); Alkaline Phosphatase 92 U/L (38-126); Anion Gap 8 mmol/L; Blood Urea Nitrogen 14 mg/dL (7-17); Carbon Dioxide 22 mmol/L (22-30); Chloride 110 mmol/L (98-107); Cholesterol 168 mg/dL (<200); HDL Cholesterol 63 mg/dL (40-60); Non-African American GFR(MDRD) >60 (>60 ml/min/1.73 sqM); Potassium 4.3 mmol/L (3.5-5.1); Sodium 140 mmol/L (137-145); Total Bilirubin 0.7 mg/dL (0.2-1.3); Triglycerides 115 mg/dL (<150)
[2016-07-02 13:26] LABS: Basophils % (A) 0 %; CH 27.2; CHCM 32.4; Eosinophils % (A) 0 %; HCT 38.9 % (34.0-46.0); HDW 2.91; HGB 12.7 gm/dL (11.4-16.0); Luc # (Auto) 0.25; Luc % (Auto) 4; Lymphocytes # (A) 2.7 k/uL (1.0-4.8); Lymphocytes % (A) 39 %; MCH 27.4 pg (25.0-35.0); MCHC 32.6 g/dL (31.0-37.0); MCV 84.3 fL (80.0-100.0); Mean Platelet Volume 8.5; Monocytes # (A) 0.4 k/uL (0-1.0); Monocytes % (A) 6 %; Neutrophils # (A) 3.4 k/uL (1.3-7.7); Neutrophils % (A) 50 %; RBC 4.62 m/uL (3.80-5.40); RDW 15.8 % (11.5-15.5); WBC 6.8 k/uL (3.8-10.6)
[2016-07-02 13:30] LABS: Hepatitis B Core IgM Index 0.07
[2016-07-02 13:41] LABS: Hepatitis C Virus IgG Index 0.04
[2016-07-02 13:43] LABS: Hepatitis B Surface Ag Index 0.11
[2016-07-02 13:44] LABS: Hepatitis C Virus IgG Ab Negative (Negative)
[2016-07-02 13:46] VITALS: BP 99/64; PULSE 82; RESP 18
[2016-07-02 14:31] LABS: Appearance,Urine Clear (Clear); Bilirubin,Urine Negative (Negative); Glucose,Urine (UA) Negative (Negative); Ketones,Urine Negative (Negative); Leukocyte Esterase,Urine Negative (Negative); Nitrite,Urine Negative (Negative); Protein,Urine Negative (Negative); Specific Gravity,Urine 1.027 (1.001-1.035); UA Billing (MACRO vs. MICRO) CHEM; Urobilinogen,Urine <2.0 mg/dL (<2.0)
[2016-07-02 14:58] LABS: Hemoglobin A1C 5.3 % (4.2-6.1)
--- NOTE | 2016-07-02 17:04 | P.GSCN ---
History of Present Illness Consult date: 07/02/16 Reason for Consult: Severe mitral regurgitation Requesting physician: Juan José Pena History of present illness: This 55-year-old female with a previous medical history of congestive heart failure, diabetes, COPD, hypertension, CVA, obesity, gastric bypass surgery, and significant family history of coronary artery disease has been followed by Dr. Pena for mitral regurgitation. She was seen by this service 3 weeks ago when she was admitted with congestive heart failure. We were consulted at that time for an ascending thoracic aorta measuring 4.3 cm on CTA of the chest with no recommendation for surgical intervention and to repeat a CT in one year's time. In addition, she came into the ER last week with symptoms of possible TIA. Her CAT scan of the brain was negative and she did not stay for treatment , she did leave AGAINST MEDICAL ADVICE but was told to take aspirin every day. Today she underwent a left heart catheterization demonstrating proximal LAD stenosis of 40%. She had a transesophageal echocardiogram demonstrating severe mitral regurgitation, and a mitral valve with poor coaptation of the leaflets with flail anterior leaflet. The left atrium was enlarged. Her ejection fraction was 60%. There is no evidence of aortic stenosis or regurgitation. She does have mild tricuspid regurgitation. Dr. Falk from cardiothoracic surgery was consulted for the possibility of surgical repair of her mitral valve. Review of Systems A 14 point review of systems was completed and was negative except as noted. - Cardiovascular Reports as per HPI - Respiratory Reports as per HPI Past Medical History Past Medical History: Heart Failure, COPD, CVA/TIA, Diabetes Mellitus, Fibromyalgia, GERD/Reflux, Pneumonia Additional Past Medical History / Comment(s): hx SHIPMAN'S ESOPHAGUS, hx hiatal hernia, chronic back and neck pain, stroke 02/2015 with left arm weakness , chronic bronchitis, migraines in past, TIA 06/26/16-seen in [facility]-now has balance problems (pt called Dr Greenberg office yesterday), heart murmer, "mass on left thyroid" History of Any Multi-Drug Resistant Organisms: None Reported Past Surgical History: Appendectomy, Back Surgery, Bariatric Surgery, Section, Cholecystectomy, Heart Catheterization, Orthopedic Surgery, Tubal Ligation Additional Past Surgical History / Comment(s): BACK SX X2 including a fusion, has spinal cord stimulater implanted in back-does not work, cervical fusion, 9- 12-16 LAP GABRIEL EN Y, surgery for hiatal hernia/barretts esophagus, rt knee arthroscopy, EGD-had staple from bariatric surgery removed Past Anesthesia/Blood Transfusion Reactions: Motion Sickness, Postoperative Nausea & Vomiting (PONV) Additional Past Anesthesia/Blood Transfusion Reaction / Comm: "Stopped breathing on roller coaster"- took long time to wake up after bariatric surgery Past Psychological History: Depression Additional Psychological History / Comment(s): . Smoking Status: Former smoker Past Alcohol Use History: None Reported Additional Past Alcohol Use History / Comment(s): quit smoking 01/11/2015. smoked >25 years-1 ppd. Past Drug Use History: None Reported - Past Family History Sister(s) Family Medical History: Myocardial Infarction ([place]) Additional Family Medical History / Comment(s): at age 43 if [place] Mother Family Medical History: Myocardial Infarction ([place]) Additional Family Medical History / Comment(s): Mother at age 62 of [place]. Father Family Medical History: Myocardial Infarction ([place]) Additional Family Medical History / Comment(s): Father in his 40's of a [place]. Medications and Allergies Home Medications Medication Instructions Recorded Confirmed Type Albuterol Nebulized [Ventolin 2.5 mg INHALATION QID 07/07/13 07/02/16 History Nebulized] Venlafaxine HCl [Effexor XR] 150 mg PO BID 01/12/15 07/02/16 History oxyCODONE-APAP 10-325MG [Percocet 1 tab PO Q6HR 01/12/15 07/02/16 History 10-325 mg] Tiotropium [place] [Spiriva] 1 cap INHALATION DAILY 03/09/15 07/02/16 History Baclofen 10 mg PO TID 05/31/15 07/02/16 History Albuterol Sulfate [Proair Hfa] 2 puff INHALATION Q6H PRN 08/09/15 07/02/16 History Budesonide-Formot 160-4.5 Mcg 2 puff INHALATION BID 08/20/15 07/02/16 History [Symbicort 160-4.5 Mcg Inhaler] Cholecalciferol [Vitamin D3] 2,000 unit PO HS 06/10/16 07/02/16 History Aspirin [Adult Low Dose Aspirin EC] 81 mg PO DAILY 06/28/16 07/02/16 History Multivitamins, Thera [Multivitamin 1 tab PO HS 06/28/16 07/02/16 History (formulary)] Vitamin A 8,000 unit PO HS 07/02/16 07/02/16 History Allergies Allergy/AdvReac Type Severity Reaction Status Date / Time Mushroom Allergy Nausea & Verified 06/28/16 13:13 Vomiting Surgical - Exam Vital Signs Temp Pulse Resp BP Pulse Ox 98.1 F 97 18 113/70 97 07/02/16 06:54 07/02/16 06:54 07/02/16 06:54 07/02/16 06:54 07/02/16 06:54 - General well developed, well nourished, no distress - Eyes PERRL, normal ocular movement - ENT no hearing loss - Neck no masses, no bruits, trachea midline - Respiratory normal expansion, normal respiratory effort, clear to auscultation - Cardiovascular Rhythm: regular Heart Sounds: normal: S1, S2 Abnormal Heart Sounds: systolic murmur - Abdomen Abdomen: soft, non tender, bowel sounds - Genitourinary Deferred - Rectum Deferred - Integumentary Multiple tattoos. Skin excoriation on the right arm. - Neurologic normal coordination, normal sensation - Psychiatric oriented to time, oriented to person, oriented to place, speech is normal, memory intact Results - Labs 07/02/16 12:04 07/02/16 12:04 Abnormal Lab Results - Last 24 Hours (Table) 07/02/16 07/02/16 Range/Units 12:04 12:04 RDW 15.8 H (11.5-15.5) % Chloride 110 H (98-107) mmol/L Albumin 3.4 L (3.5-5.0) g/dL HDL Cholesterol 63 H (40-60) mg/dL Diabetes panel 07/02/16 07/02/16 Range/Units 12:04 12:04 Sodium 140 (137-145) mmol/L Potassium 4.3 (3.5-5.1) mmol/L Chloride 110 H (98-107) mmol/L Carbon Dioxide 22 (22-30) mmol/L BUN 14 (7-17) mg/dL Creatinine 0.94 (0.52-1.04) mg/dL Glucose 82 (74-99) mg/dL Hemoglobin A1c 5.3 (4.2-6.1) % Calcium 9.0 (8.4-10.2) mg/dL AST 27 (14-36) U/L ALT 30 (9-52) U/L Alkaline Phosphatase 92 (38-126) U/L Total Protein 6.5 (6.3-8.2) g/dL Albumin 3.4 L (3.5-5.0) g/dL Triglycerides 115 (<150) mg/dL HDL Cholesterol 63 H (40-60) mg/dL Thyroid panel 07/02/16 Range/Units 12:04 TSH 1.750 (0.465-4.680) mIU/L Calcium panel 07/02/16 Range/Units 12:04 Calcium 9.0 (8.4-10.2) mg/dL Albumin 3.4 L (3.5-5.0) g/dL Pituitary panel 07/02/16 Range/Units 12:04 Sodium 140 (137-145) mmol/L Potassium 4.3 (3.5-5.1) mmol/L Chloride 110 H (98-107) mmol/L Carbon Dioxide 22 (22-30) mmol/L BUN 14 (7-17) mg/dL Creatinine 0.94 (0.52-1.04) mg/dL Glucose 82 (74-99) mg/dL Calcium 9.0 (8.4-10.2) mg/dL TSH 1.750 (0.465-4.680) mIU/L Adrenal panel 07/02/16 Range/Units 12:04 Sodium 140 (137-145) mmol/L Potassium 4.3 (3.5-5.1) mmol/L Chloride 110 H (98-107) mmol/L Carbon Dioxide 22 (22-30) mmol/L BUN 14 (7-17) mg/dL Creatinine 0.94 (0.52-1.04) mg/dL Glucose 82 (74-99) mg/dL Calcium 9.0 (8.4-10.2) mg/dL Total Bilirubin 0.7 (0.2-1.3) mg/dL AST 27 (14-36) U/L ALT 30 (9-52) U/L Alkaline Phosphatase 92 (38-126) U/L Total Protein 6.5 (6.3-8.2) g/dL Albumin 3.4 L (3.5-5.0) g/dL Assessment and Plan (1) Severe mitral regurgitation Status: Acute (2) History of CVA (cerebrovascular accident) Status: Acute (3) COPD (chronic obstructive pulmonary disease) Status: Chronic (4) Congestive heart failure Status: Chronic (5) Diastolic CHF Status: Chronic (6) Hypertension Status: Chronic (7) Tobacco abuse, in remission Status: Chronic (8) Type 2 diabetes, controlled, with neuropathy Status: Chronic Plan: The patient was seen and examined with Dr. Falk. He described in detail surgical mitral valve repair versus replacement with biological valve versus mechanical valve. Preoperative testing was ordered. Preoperative teaching was initiated and reinforced. Patient needs to have dental clearance before surgery. She is to call for a follow-up appointment to see Dr. Falk in the office once she has dental clearance for possible mitral valve replacement. Dr. Falk's business card was given to the patient and . All questions were answered to the best of my ability. Thank you Dr. Pena for this consult. We look forward to working with you in the care of your patient. Time with Patient: Greater than 30
--- NOTE | 2016-07-03 07:16 | US ---
EXAMINATION TYPE: US carotid duplex BILAT DATE OF EXAM: 07/02/2016 4:21 PM COMPARISON: NONE CLINICAL HISTORY: PreOp Cardiac Surgery. EXAM MEASUREMENTS: RIGHT: Peak Systolic Velocity (PSV) cm/sec ----- Right CCA: 68.8 ----- Right ICA: 59.3 ----- Right ECA: 45.3 ICA/CCA ratio: 0.9 RIGHT: End Diastole cm/sec ----- Right CCA: 22.6 ----- Right ICA: 20.8 ----- Right ECA: 9.5 LEFT: Peak Systolic Velocity (PSV) cm/sec ----- Left CCA: 78.3 ----- Left ICA: 64.0 ----- Left ECA: 42.0 ICA/CCA ratio: 0.8 LEFT: End Diastole cm/sec ----- Left CCA: 22.2 ----- Left ICA: 22.2 ----- Left ECA: 8.0 VERTEBRALS (direction of flow): Right Vertebral: Antegrade Left Vertebral: Antegrade Mild plaque noted bilateral bifurcations. NO evidence of increased velocities IMPRESSION: 1. Mild plaque formation with no significant hemodynamic stenosis.
--- NOTE | 2016-07-10 14:16 | P.VSCSTY ---
Greater Saphenous Vein Mapping This is bilateral lower extremity greater saphenous vein mapping. Date of service 07/02/2016 Vein quality and ultrasound appearance pre-CABG. Vein size groin right 4.3 x 4.5 groin left 5.2 x 6.3 High thigh right 2.7 x 3.0 high thigh left 3.3 x 4.1 Mid thigh right 2.5 x 3.3 mid thigh left 3.0 x 4.0 Above-knee right 3.1 x 3.8 above- knee left 3.0 x 4.0 Below knee right 2.9 x 3.5 below-knee left 3.0 x 3.4 Mid calf right 2.0 x 2.1 mid calf left 2.2 x 2.5 Ankle right 1.4 x 1.5 ankle left to 2.6 x 3.3 Impression usable bilateral greater saphenous vein. Small at the right ankle..
== END 2016-07-02 19:00 | disposition home or self-care (01) ==
LOC: CATHCVL 06:30
PROVIDERS: ATTEND Internal Medicine Cardiovascular Disease
DX: I08.1 Rheumatic disorders of both mitral and tricuspid valves (principal); I70.0 Atherosclerosis of aorta; Z01.818 Encounter for other preprocedural examination; I65.23 Occlusion and stenosis of bilateral carotid arteries; I10 Essential (primary) hypertension; Z87.891 Personal history of nicotine dependence; E11.9 Type 2 diabetes mellitus without complications; I50.9 Heart failure, unspecified; I69.354 Hemiplegia and hemiparesis following cerebral infarction affecting left non-dominant side; J44.9 Chronic obstructive pulmonary disease, unspecified; M79.7 Fibromyalgia; G89.29 Other chronic pain; M54.9 Dorsalgia, unspecified; M54.2 Cervicalgia; Z79.51 Long term (current) use of inhaled steroids; Z79.899 Other long term (current) drug therapy; Z91.018 Allergy to other foods
CPT/HCPCS: 94150; 93312; 93320; 93325; 93458; 86900; 86901; 83880; 80061; 80053; 80074; 84443; 83036; 83735; 85025; 85610; 85730; 86850; 81003; 87070; 87086; 93970; 93880; C1894; C1769; J2001; J2250; J3010; Q9967

== ENCOUNTER → 2016-07-16 | Outpatient (CLI) | payer MEDICARE, OTHER ==
[2016-07-16 12:41] LABS: CH 26.8; CHCM 31.3; HCT 39.2 % (34.0-46.0); HDW 2.84; HGB 12.4 gm/dL (11.4-16.0); Hypochromasia Slight; MCH 27.2 pg (25.0-35.0); MCHC 31.6 g/dL (31.0-37.0); MCV 86.2 fL (80.0-100.0); Mean Platelet Volume 8.5; RBC 4.55 m/uL (3.80-5.40); WBC 7.7 k/uL (3.8-10.6)
[2016-07-16 12:55] LABS: Appearance,Urine Cloudy (Clear); Bacteria,Urine Rare /hpf; Bilirubin,Urine Negative (Negative); Calcium Oxalate Crystals,Urine Moderate /hpf; Glucose,Urine (UA) Negative (Negative); Ketones,Urine Negative (Negative); Leukocyte Esterase,Urine Large (Negative); Mucus,Urine Rare /hpf; Nitrite,Urine Negative (Negative); PH, Urine 5.5 (5.0-8.0); Particle Count 6806; Protein,Urine 1+ (Negative); RBC,Urine 4 /hpf (0-5); Specific Gravity,Urine 1.023 (1.001-1.035); Squamous Epithelial Cell,Urine 5 /hpf (0-4); UA Billing (MACRO vs. MICRO) MICRO; WBC,Urine 5 /hpf (0-5)
[2016-07-16 12:58] LABS: INR 1.2 (<1.1); Partial Thromboplastin Time 25.5 sec (22.0-30.0); Prothrombin Time 12.3 sec (9.0-12.0)
[2016-07-16 13:03] LABS: ALT 31 U/L (9-52); AST 31 U/L (14-36); Alkaline Phosphatase 113 U/L (38-126); Anion Gap 11 mmol/L; Blood Urea Nitrogen 12 mg/dL (7-17); Calcium 9.2 mg/dL (8.4-10.2); Carbon Dioxide 21 mmol/L (22-30); Chloride 107 mmol/L (98-107); Cholesterol 162 mg/dL (<200); Glucose 98 mg/dL (74-99); HDL Cholesterol 67 mg/dL (40-60); Non-African American GFR(MDRD) 58 (>60 ml/min/1.73 sqM); Potassium 4.3 mmol/L (3.5-5.1); Sodium 139 mmol/L (137-145); Total Protein 6.9 g/dL (6.3-8.2); Triglycerides 137 mg/dL (<150)
[2016-07-16 13:40] LABS: Hepatitis B Core IgM Index 0.05
[2016-07-16 13:51] LABS: Hepatitis C Virus IgG Ab Negative (Negative); Hepatitis C Virus IgG Index 0.03
[2016-07-16 19:42] LABS: Hemoglobin A1C 5.4 % (4.2-6.1)
== END | disposition home or self-care (01) ==
LOC: LABPAT 12:07
PROVIDERS: ATTEND Surgery
DX: Z01.810 Encounter for preprocedural cardiovascular examination (principal)
CPT/HCPCS: 36415; 80053; 80061; 80074; 81001; 83036; 83735; 83880; 84443; 84484; 85027; 85610; 85730; 86850; 86900; 86901; 86920; 87086

== ENCOUNTER 2016-07-24 05:45 | Inpatient (IN) | payer MEDICARE, OTHER ==
[2016-07-16 16:32] VITALS: BMI 28.0
[~2016-07-24 05:45] MED LIST changes: +ALBUMIN HUMAN 25% 50 ML IV ONE; +ALBUMIN HUMAN 5% 500 ML IVPB ONE; -ALPRAZolam 0.25 MG TAB PO PRN; -ALPRAZolam 0.5 MG TAB PO PRN; +AMINOCAPROIC ACID 250 MG/ML 20 ML VIAL IV ONE; +AMINOCAPROIC ACID 5,000 MG in DEXTROSE 5% IN WATER 50 ML IV ONE; +ASPIRIN 325 MG TAB PO ONE; -ASPIRIN 325 MG TAB PO STA; +ATORVASTATIN 10 MG TAB PO ONE; -ATORVASTATIN 80 MG TAB PO STA; +CALCIUM CHLORIDE 100 MG/ML 10 ML SYRINGE IV ONE; +CHLORHEXIDINE GLUCONATE 15 ML CUP MUCOUS MEM ONE; +CLEVIDIPINE BUTYRATE 25 MG in EMPTY BAG 1 BAG IV ONE; +DEXTROSE 5% IN WATER 1,000 ML with POTASSIUM CHLORIDE 110 MEQ, MAGNESIUM SULFATE 16 MEQ... IV ONE; +DEXTROSE 5% IN WATER 1,000 ML with POTASSIUM CHLORIDE 25 MEQ, SODIUM CHLORIDE 4MEQ/ML V... IV ONE; +HEPARIN SODIUM 1,000 UNIT/ML VIAL IV ONE; +HEPARIN SODIUM,PORCINE 5,000 UNIT in SODIUM CHLORIDE 0.9% 500 ML IV ONE; +INSULIN REGULAR 100 UNIT in SODIUM CHLORIDE 0.9% 100 ML IV ONE; +LACTATED RINGERS 1,000 ML IV ONE; +MAGNESIUM SULFATE MG 500 MG/ML VIAL IV ONE; +MANNITOL 25% 12.5 GM/50 ML VIAL IV ONE; +METOPROLOL TARTRATE 12.5 MG TAB PO ONE; +MUPIROCIN 2% OINT 22 GM TUBE NASAL ONE; +NITROGLYCERIN SL TABS 0.4 MG TAB SUBLINGUAL ONE; -NITROGLYCERIN SL TABS 0.4 MG TAB SUBLINGUAL PRN; +NITROGLYCERIN-D5W PMX 25 MG/250 ML BTL IV ONE; +NITROGLYCERIN-D5W PMX 50 MG in DEXTROSE/WATER 1 250ML.BAG IV ONE; +NOREPINEPHRIN 4 MG-0.9% NS PMX 4 MG/250 ML ML IV ONE; +PHENYLEPHRINE 40 MG in SODIUM CHLORIDE 0.9% 250 ML IV ONE; +PHENYLEPHRINE-0.9% NACL SYG 1 MG/10 ML SYRINGE IV ONE; +PROPOFOL 50 ML IV ONE; +PROTAMINE SULFATE 10 MG/ML 25 ML VIAL IV ONE; +PROTAMINE SULFATE 250 MG in EMPTY BAG 1 BAG IV ONE; +SODIUM BICARB 8.4% 50 ML SYR (1 MEQ/ML) IV ONE; +SODIUM CHLORIDE 0.9% 1,000 ML IV ONE; -SODIUM CHLORIDE 0.9% 1,000 ML in EMPTY BAG 1 BAG IV ONE; +ceFAZolin 1,000 MG in SODIUM CHLORIDE 0.9% IRRIGATIO 1,000 ML IRRIGATION ONE; +ceFAZolin 2,000 MG in SODIUM CHLORIDE 0.9% 30 ML IVPB ONE
[2016-07-24] MEDS ORDERED: LACTATED RINGERS 1,000 ML IV SCH (05:56)
[2016-07-24] MEDS ORDERED: LIDOCAINE 1% 20 ML VIAL (10MG/ML) FOR IV START INTRADERMA PRN (05:56)
[2016-07-24] MEDS ORDERED: LIDOCAINE 2% SYG (PF) 100 MG/5 ML ONE (08:01)
[2016-07-24] MEDS ORDERED: fentaNYL (PF) 50 MCG/ML 50 ML VIAL ONE (08:01)
[2016-07-24] MEDS ORDERED: SODIUM CHLORIDE 0.9% IRRIG 1,000 ML BTL IRRIGATION ONE (08:01)
[2016-07-24] MEDS ORDERED: HEPARIN SODIUM,PORCINE 10,000 UNIT/ML 1 ML VIAL ONE (08:01)
[2016-07-24] MEDS ORDERED: fentaNYL (PF) 50 MCG/ML 2 ML AMP ONE (08:01)
[2016-07-24] MEDS ORDERED: HEPARIN SODIUM 1,000 UNIT/ML VIAL ONE (08:01)
[2016-07-24] MEDS ORDERED: VECURONIUM 10 MG VIAL IV ONE (08:01)
[2016-07-24] MEDS ORDERED: ePHEDrine 50 MG/ML 1 ML AMP ONE (08:01)
[2016-07-24] MEDS ORDERED: CALCIUM CHLORIDE 100 MG/ML 10 ML SYRINGE ONE (08:01)
[2016-07-24] MEDS ORDERED: PROTAMINE SULFATE 10 MG/ML 25 ML VIAL IV ONE (08:01)
[2016-07-24] MEDS ORDERED: PROPOFOL 10 MG/ML 20 ML VIAL IV ONE (08:01)
[2016-07-24] MEDS ORDERED: HEPARIN SODIUM,PORCINE 5,000 UNIT/ML 1 ML VIAL ONE (08:01)
[2016-07-24] MEDS ORDERED: MIDAZOLAM 2 MG/2 ML VIAL ONE (08:01)
[2016-07-24] MEDS ORDERED: ELECTROLYTE-R (PH 7.4) 1,000 ML IV.SOLN IV ONE (08:01)
[2016-07-24 08:36] LABS: Glucose,Whole Blood 107 mg/dL (75-99)
[2016-07-24 09:52] LABS: Glucose,Whole Blood 113 mg/dL (75-99)
[2016-07-24 10:32] LABS: Glucose,Whole Blood 180 mg/dL (75-99)
[2016-07-24] MEDS ORDERED: ALBUMIN HUMAN 5% 250 ML IVPB ONE (11:00)
[2016-07-24 11:03] LABS: Glucose,Whole Blood 202 mg/dL (75-99)
[2016-07-24 12:21] LABS: Glucose,Whole Blood 169 mg/dL (75-99)
[2016-07-24] MEDS ORDERED: ONDANSETRON 4 MG/2 ML VIAL IVP PRN (12:41)
[2016-07-24] MEDS ORDERED: NITROGLYCERIN-D5W PMX 50 MG in DEXTROSE/WATER 1 250ML.BAG IV SCH (12:41)
[2016-07-24] MEDS ORDERED: Potassium Replacement Protocol 1 EACH MISC MISCELLANE PRN (12:41)
[2016-07-24] MEDS ORDERED: ALBUMIN HUMAN 5% 250 ML in EMPTY BAG 1 BAG IVPB PRN (12:41)
[2016-07-24] MEDS ORDERED: METOCLOPRAMIDE 5 MG/ML 2 ML VIAL IVP PRN (12:41)
[2016-07-24] MEDS ORDERED: CALCIUM GLUCONATE 2,000 MG in SODIUM CHLORIDE 0.9% 100 ML IVPB PRN (12:41)
[2016-07-24] MEDS ORDERED: BENZOCAINE/MENTHOL LOZENG 1 EACH LOZENGE MUCOUS MEM PRN (12:41)
[2016-07-24] MEDS ORDERED: Phosphorus Replacement Protoco 1 EACH MISC MISCELLANE PRN (12:41)
[2016-07-24] MEDS ORDERED: Magnesium Replacement Protocol 1 EACH MISC MISCELLANE PRN (12:41)
[2016-07-24 13:34] LABS: ABG PCO2 48 mmHg (35-45); ABG PH 7.35 (7.35-7.45)
[2016-07-24 13:35] LABS: ABG Base Excess 0.5 mmol/L; ABG HCO3 26 mmol/L (21-25); ABG Oxygen Saturation 99.7 % (94-97); ABG PO2 205 mmHg (83-108); ABG TCO2 27 mmol/L (19-24)
[2016-07-24 13:37] LABS: Basophils % (A) 0 %; CH 26.5; CHCM 31.1; Eosinophils % (A) 0 %; HCT 33.7 % (34.0-46.0); HDW 2.82; HGB 10.4 gm/dL (11.4-16.0); Hypochromasia Moderate; Luc # (Auto) 0.08; Luc % (Auto) 1; Lymphocytes # (A) 1.5 k/uL (1.0-4.8); Lymphocytes % (A) 9 %; MCH 26.6 pg (25.0-35.0); MCV 85.8 fL (80.0-100.0); Mean Platelet Volume 9.6; Monocytes # (A) 0.6 k/uL (0-1.0); Monocytes % (A) 4 %; Neutrophils # (A) 13.8 k/uL (1.3-7.7); Neutrophils % (A) 86 %; RBC 3.93 m/uL (3.80-5.40); RDW 15.5 % (11.5-15.5); WBC (Perox) 16.21
--- NOTE | 2016-07-24 13:37 | XR ---
EXAMINATION TYPE: XR chest 1V portable DATE OF EXAM: 07/24/2016 COMPARISON: NONE INDICATION: Postoperative cardiac surgery TECHNIQUE: Single frontal view of the chest is obtained. Image is in the semiupright position. FINDINGS: The heart size is normal. The pulmonary vasculature is at the upper limits of normal. Some mild left lower lobe atelectasis appears to be present. Stimulator leads are within the midline. There is a right-sided chest tube. No pneumothorax is eviden t. Blanco-Alonso catheter is present with the tip in the main pulmonary artery. Endotracheal tube tip is above the yadi. Nasogastric tube tip is in the left upper quadrant of the abdomen. Mediastinal tube is present. IMPRESSION: 1. Mild volume overload. 2. Multiple lines and catheters discussed above.
[2016-07-24 13:44] LABS: Glucose,Whole Blood 140 mg/dL (75-99)
[2016-07-24 13:45] LABS: INR 1.4 (<1.1); Partial Thromboplastin Time 22.5 sec (22.0-30.0); Prothrombin Time 14.1 sec (9.0-12.0)
[2016-07-24] MEDS: INSULIN REGULAR 100 UNIT in SODIUM CHLORIDE 0.9% 100 ML IV SCH (13:56)
[2016-07-24] MEDS: LACTATED RINGERS 1,000 ML IV SCH (13:58)
[2016-07-24] MEDS: PROPOFOL 500 MG in EMPTY BAG 1 BAG IV SCH ×2 (13:59→16:10)
[2016-07-24] MEDS: CLEVIDIPINE BUTYRATE 25 MG in EMPTY BAG 1 BAG IV SCH (13:59)
[2016-07-24] MEDS: MILRINONE-D5W PMX 20 MG in DEXTROSE/WATER 1 100ML.BAG IV SCH (14:01)
[2016-07-24 14:09] LABS: Ionized Calcium 5.1 mg/dL (4.5-5.3)
[2016-07-24 14:15] LABS: Glucose,Whole Blood 133 mg/dL (75-99)
[2016-07-24 14:22] LABS: ALT 33 U/L (9-52); AST 64 U/L (14-36); Alkaline Phosphatase 104 U/L (38-126); Anion Gap 9 mmol/L; Blood Urea Nitrogen 14 mg/dL (7-17); Calcium 8.8 mg/dL (8.4-10.2); Carbon Dioxide 25 mmol/L (22-30); Chloride 105 mmol/L (98-107); Glucose 141 mg/dL (74-99); Magnesium 2.4 mg/dL (1.6-2.3); Non-African American GFR(MDRD) 53 (>60 ml/min/1.73 sqM); Potassium 4.1 mmol/L (3.5-5.1); Sodium 139 mmol/L (137-145); Total Protein 5.4 g/dL (6.3-8.2)
--- NOTE | 2016-07-24 14:41 | CONS ---
DATE OF CONSULTATION: Kassy is a 56-year-old lady with severe mitral regurgitation who underwent mitral valve replacement, has just been brought to the ICU. She is currently intubated on vent, remains in sinus rhythm, normal blood pressure. Her PA pressures are still elevated. Past medical history is significant for severe mitral regurgitation and COPD. Medications include Lasix 40 q. daily, vitamin D, Symbicort, Tenormin, aspirin, ProAir, Ventolin, Percocet, Effexor, Spiriva, Restoril, K-Dur and omeprazole. Allergic to MUSHROOM. . Family history is negative for premature coronary artery disease. SOCIAL HISTORY: Negative for current smoking, EtOH use or drug abuse. REVIEW OF SYSTEMS: I am unable to obtain from the patient who is intubated and on vent. On exam, comfortable at rest. Vital signs are stable. Chest exam reveals diminished air entry bilaterally. Heart exam reveals first and second heart sounds. No murmur. No gallop. Abdomen is soft. Exam of the extremities did not reveal edema. Peripheral pulses are felt. Labs show a hemoglobin of 10.4. ASSESSMENT: 1. Severe mitral regurgitation, status post mitral valve replacement. 2. Pulmonary hypertension secondary to that. PLAN: Will continue with supportive care. We should be able to extubate her tomorrow.
--- NOTE | 2016-07-24 14:44 | P.CNPUL ---
History of Present Illness Consult date: 07/24/16 Requesting physician: Tyron Falk Reason for consult: other (Clinical ventilator/critical care management) Chief complaint: Shortness of breath History of present illness: This is a very pleasant 56-year-old female patient who follows with Dr. Hager as her primary care physician. She has a history of congestive heart failure, chronic obstructive pulmonary disease, CVA/TIA, diabetes lightest, gastroesophageal reflux disease, hypertension, osteoarthritis. She also has a history of Shipman's esophagus that was surgically repaired. He follows in our office with Dr. Stevens for chronic obstructive pulmonary disease. Her FEV1 value of 73% of predicted. She presented here back in 06/10/2016 with shortness of breath cough and congestion. She was found to have severe mitral regurgitation and is now status post mitral valve replacement is seen immediately postoperatively in the intensive care unit and she is currently intubated and on the mechanical ventilator at settings of assist control of 12 tidal volume 400 FiO2 100% and a PEEP of 5. Follow-up blood gases reveal a pO2 of 205, pCO2 47, pH 7.35. She is currently sedated on propofol 50 mcg/kg/m, milrinone at 0.25 mcg/kg/m, insulin drip at 2 units per hour, nitroglycerin drip at 50 mcg/m. Her current cardiac output is 5.5, cardiac index 2.9, pulmonary arterial pressure 60/29 with a mean of 48, CVP of 13. She is currently in normal sinus rhythm. Review of Systems ROS unobtainable: due to endotracheal tube Past Medical History Past Medical History: Heart Failure, COPD, CVA/TIA, Diabetes Mellitus, Fibromyalgia, GERD/Reflux, Hypertension, Pneumonia Additional Past Medical History / Comment(s): Heart murmur,mass on thyroidHx SHIPMAN'S ESOPHAGUS, past hiatal hernia, chronic back and neck pain, stroke 2015 with L arm weakness,TIA 06/26/16, chronic bronchitis (bronchitis and pneumonia April 2016), migraines in past History of Any Multi-Drug Resistant Organisms: None Reported Past Surgical History: Appendectomy, Back Surgery, Bariatric Surgery, Section, Cholecystectomy, Heart Catheterization, Joint Replacement, Tubal Ligation Additional Past Surgical History / Comment(s): BACK SX X2 including a fusion, has CLC implanted in back (tens unit)lower left back/posterior hip, cervical fusion, 9-12-16 LAP GABRIEL EN Y repair of hiatal hernia & Shipman's Esophagus,EGD with dilation and removal of a staple,rt knee arthroscopy Past Anesthesia/Blood Transfusion Reactions: Motion Sickness Additional Past Anesthesia/Blood Transfusion Reaction / Comment(s): Severe PONV, stated ""stopped breathing on roller coaster",took long time to wake up after bariatric surgery,no hx blood transfusion Past Psychological History: Depression Additional Psychological History / Comment(s): Pt lives in home with . Pt states she has depression and is on meds for that which have been very effective. There are adult children in the home. Pt is independent. Smoking Status: Former smoker Past Alcohol Use History: None Reported Additional Past Alcohol Use History / Comment(s): quit smoking 01/11/15. smoked >25 years-1 ppd. Past Drug Use History: None Reported - Past Family History Sister(s) Family Medical History: Myocardial Infarction ([place]) Additional Family Medical History / Comment(s): at age 43 if [place] Mother Family Medical History: Myocardial Infarction ([place]) Additional Family Medical History / Comment(s): Mother at age 62 of [place]. Father Family Medical History: Myocardial Infarction ([place]) Additional Family Medical History / Comment(s): Father in his 40's of a [place]. Medications and Allergies Home Medications Medication Instructions Recorded Confirmed Type Albuterol Nebulized [Ventolin 2.5 mg INHALATION RT-QID 07/07/13 07/24/16 History Nebulized] Venlafaxine HCl [Effexor XR] 150 mg PO BID 01/12/15 07/24/16 History oxyCODONE-APAP 10-325MG [Percocet 1 tab PO Q6HR 01/12/15 07/24/16 History 10-325 mg] Tiotropium [place] [Spiriva] 1 cap INHALATION RT-DAILY 03/09/15 07/24/16 History Baclofen 10 mg PO TID 05/31/15 07/24/16 History Albuterol Sulfate [Proair Hfa] 2 puff INHALATION RT-Q6H PRN 08/09/15 07/24/16 History Budesonide-Formot 160-4.5 Mcg 2 puff INHALATION RT-BID 08/20/15 07/24/16 History [Symbicort 160-4.5 Mcg Inhaler] Cholecalciferol [Vitamin D3] 2,000 unit PO HS 06/10/16 07/24/16 History Aspirin [Adult Low Dose Aspirin EC] 81 mg PO DAILY 06/28/16 07/24/16 History Multivitamins, Thera [Multivitamin 1 tab PO HS 06/28/16 07/24/16 History (formulary)] Vitamin A 8,000 unit PO HS 07/02/16 07/24/16 History Omeprazole 40 mg PO QAM 07/16/16 07/24/16 History Temazepam [Restoril] 15 mg PO HS PRN 07/16/16 07/24/16 History Allergies Allergy/AdvReac Type Severity Reaction Status Date / Time Mushroom AdvReac Nausea & Verified 07/24/16 12:51 Vomiting Physical Exam Vitals: Vital Signs Temp Pulse Pulse Resp BP BP BP 07/24/16 14:20 86 105/73 07/24/16 14:10 83 105/73 07/24/16 14:00 96.3 F L 79 105/73 07/24/16 13:50 84 105/73 07/24/16 13:40 82 105/73 07/24/16 13:30 80 105/73 07/24/16 13:20 76 07/24/16 13:13 80 07/24/16 12:41 36.1 F L 80 14 132/74 07/24/16 06:04 97 F L 86 18 102/75 BP Pulse Ox 07/24/16 14:20 97 07/24/16 14:10 97 07/24/16 14:00 97 07/24/16 13:50 97 07/24/16 13:40 98 07/24/16 13:30 99 07/24/16 13:20 99 07/24/16 13:13 07/24/16 12:41 99 07/24/16 06:04 110/74 96 Intake and Output 07/23/16 07/24/16 07/24/16 22:59 06:59 14:59 Intake Total 132 Output Total 7679 Balance -8395 Intake: IV 32 Intake, IV Titration 100 Amount Lactated Ringers 1,000 ml 100 @ 50 mls/hr IV .Q20H [facility] Rx#:[id number] Output: Chest Tube Drainage 19 Chest Tube Mediastinal 11 Left Lateral Chest 8 Urine 1300 Estimated Blood Loss 1200 ABP, PAP, CO, CI - Last 8 Hours Arterial Blood Pressure 125/69 Arterial Blood Pressure 124/66 Arterial Blood Pressure 119/66 Arterial Blood Pressure 130/67 Arterial Blood Pressure 129/68 Arterial Blood Pressure 127/73 Pulmonary Artery Pressure 61/29 Pulmonary Artery Pressure 60/28 Pulmonary Artery Pressure 60/29 Pulmonary Artery Pressure 58/30 Pulmonary Artery Pressure 56/27 Pulmonary Artery Pressure 54/28 Pulmonary Artery Pressure 50/26 Cardiac Output 5.5 Cardiac Output 6.5 Cardiac Output 5.5 Cardiac Output 5.5 Cardiac Output 5.5 Cardiac Output 5.4 Cardiac Output 5.4 Cardiac Index 3.1 Cardiac Index 2.9 Cardiac Index 2.9 GENERAL EXAM: Intubated, sedated. HEAD: Normocephalic. EYES: Sluggish reaction of pupils, equal size. NOSE: Clear with pink turbinates. THROAT: Tracheal tube in the gastric tube secured in place NECK: No masses, no JVD. Chatham-Alonso in place CHEST: No chest wall deformity. Dressing dry and intact. Mediastinal and left pleural chest tubes are in place. Pacer wires in place. LUNGS: Equal air entry with crackles in the posterior bases. CVS: S1 and S2 normal with no audible murmur, regular rhythm. ABDOMEN: No hepatosplenomegaly, normal bowel sounds, no guarding or rigidity. SPINE: No scoliosis or deformity SKIN: No rashes Extremities: There is no significant peripheral edema. KELI hose are in place. Sequential compression devices in place. Peripheral pulses are intact. No clubbing, no cyanosis. Results - Laboratory Findings CBC and BMP: 07/24/16 13:15 07/24/16 13:15 ABG ABG pH 7.35 (7.35-7.45) 07/24/16 13:25 ABG pCO2 48 mmHg (35-45) H 07/24/16 13:25 ABG pO2 205 mmHg (83-108) H 07/24/16 13:25 ABG O2 Saturation 99.7 % (94-97) H 07/24/16 13:25 PT/INR, D-dimer PT 14.1 sec (9.0-12.0) H 07/24/16 13:15 INR 1.4 (<1.1) 07/24/16 13:15 Abnormal lab findings: Abnormal Labs 07/16/16 07/24/16 07/24/16 12:00 08:32 09:38 WBC Hgb Hct Plt Count Neutrophils # PT ABG pCO2 ABG pO2 ABG HCO3 ABG Total CO2 ABG O2 Saturation Creatinine Glucose POC Glucose (mg/dL) 107 H 113 H Magnesium AST Total Protein Albumin Crossmatch See Detail 07/24/16 07/24/16 07/24/16 10:18 11:00 12:20 WBC Hgb Hct Plt Count Neutrophils # PT ABG pCO2 ABG pO2 ABG HCO3 ABG Total CO2 ABG O2 Saturation Creatinine Glucose POC Glucose (mg/dL) 180 H 202 H 169 H Magnesium AST Total Protein Albumin Crossmatch 07/24/16 07/24/16 07/24/16 13:15 13:15 13:15 WBC 16.0 H Hgb 10.4 L Hct 33.7 L Plt Count 135 L Neutrophils # 13.8 H PT 14.1 H ABG pCO2 ABG pO2 ABG HCO3 ABG Total CO2 ABG O2 Saturation Creatinine 1.07 H Glucose 141 H POC Glucose (mg/dL) Magnesium 2.4 H AST 64 H Total Protein 5.4 L Albumin 3.0 L Crossmatch 07/24/16 07/24/16 07/24/16 13:24 13:25 14:12 WBC Hgb Hct Plt Count Neutrophils # PT ABG pCO2 48 H ABG pO2 205 H ABG HCO3 26 H ABG Total CO2 27 H ABG O2 Saturation 99.7 H Creatinine Glucose POC Glucose (mg/dL) 140 H 133 H Magnesium AST Total Protein Albumin Crossmatch - Diagnostic Findings Chest x-ray: image reviewed Assessment and Plan Plan: Pression: #1 Severe mitral regurgitation status post valve replacement. Operative day #0. #2 Ventilator management secondary to expected outcome post thoracotomy. #3 History of CVA. #3 Chronic obstructive pulmonary disease. #4 Congestive heart failure, diastolic. #5 Hypertension. #6 History of chronic tobacco dependence. #7 Diabetes mellitus, type II. #8 Gastroesophageal reflux disease. Plan: The patient was seen and evaluated by Dr. Orozco. Her chest x-ray ABGs and labs were reviewed. Ventilator adjustments were made accordingly. Bronchodilators, antibiotics. We'll plan for rapid sequence extubation as tolerated. We'll continue to monitor her here closely in the intensive care unit. We'll continue to follow make further recommendations based on her clinical status. Critical Care time 38 minutes. Time with Patient: Greater than 30
[2016-07-24 15:16] LABS: Glucose,Whole Blood 139 mg/dL (75-99)
[2016-07-24] MEDS ORDERED: IPRATROPIUM-ALBUTEROL 3 ML NEB INHALATION SCH (16:00)
[2016-07-24 16:26] LABS: Glucose,Whole Blood 117 mg/dL (75-99)
[2016-07-24 16:34] LABS: Basophils % (A) 0 %; CH 26.3; CHCM 30.5; Eosinophils % (A) 0 %; HCT 35.3 % (34.0-46.0); HDW 2.84; HGB 10.8 gm/dL (11.4-16.0); Hypochromasia Moderate; Luc # (Auto) 0.17; Luc % (Auto) 1; Lymphocytes # (A) 1.1 k/uL (1.0-4.8); Lymphocytes % (A) 5 %; MCH 26.5 pg (25.0-35.0); MCHC 30.5 g/dL (31.0-37.0); MCV 86.6 fL (80.0-100.0); Mean Platelet Volume 9.9; Monocytes # (A) 1.4 k/uL (0-1.0); Monocytes % (A) 7 %; Neutrophils # (A) 17.4 k/uL (1.3-7.7); Neutrophils % (A) 87 %; RBC 4.07 m/uL (3.80-5.40); RDW 15.6 % (11.5-15.5); WBC 20.1 k/uL (3.8-10.6); WBC (Perox) 20.64
[2016-07-24 16:39] LABS: Ionized Calcium 5.3 mg/dL (4.5-5.3)
[2016-07-24] MEDS: ceFAZolin 2 GM in SODIUM CHLORIDE 0.9% 100 ML IVPB SCH ×2 (16:43→23:20)
[2016-07-24 16:46] LABS: ALT 38 U/L (9-52); AST 66 U/L (14-36); Alkaline Phosphatase 102 U/L (38-126); Anion Gap 8 mmol/L; Blood Urea Nitrogen 14 mg/dL (7-17); Calcium 8.7 mg/dL (8.4-10.2); Carbon Dioxide 28 mmol/L (22-30); Chloride 103 mmol/L (98-107); Glucose 122 mg/dL (74-99); Non-African American GFR(MDRD) 52 (>60 ml/min/1.73 sqM); Potassium 4.6 mmol/L (3.5-5.1); Sodium 139 mmol/L (137-145); Total Bilirubin 0.9 mg/dL (0.2-1.3); Total Protein 5.7 g/dL (6.3-8.2)
[2016-07-24 16:49] LABS: INR 1.3 (<1.1); Partial Thromboplastin Time 23.8 sec (22.0-30.0); Prothrombin Time 12.9 sec (9.0-12.0)
[2016-07-24] MEDS: ACETAMINOPHEN IV (For NPO) 1,000 MG in EMPTY BAG 1 BAG IVPB SCH ×2 (17:02→23:20)
[2016-07-24 17:13] LABS: Glucose,Whole Blood 112 mg/dL (75-99)
[2016-07-24 19:06] LABS: Glucose,Whole Blood 144 mg/dL (75-99)
[2016-07-24 19:16] LABS: Basophils # (A) 0.1 k/uL (0-0.2); Basophils % (A) 0 %; CH 26.5; CHCM 30.9; Eosinophils % (A) 0 %; HCT 34.7 % (34.0-46.0); HDW 2.91; HGB 10.9 gm/dL (11.4-16.0); Hypochromasia Moderate; Luc # (Auto) 0.22; Luc % (Auto) 1; Lymphocytes # (A) 0.6 k/uL (1.0-4.8); Lymphocytes % (A) 3 %; MCHC 31.3 g/dL (31.0-37.0); MCV 86.4 fL (80.0-100.0); Mean Platelet Volume 10.3; Monocytes # (A) 1.1 k/uL (0-1.0); Monocytes % (A) 6 %; Neutrophils # (A) 16.2 k/uL (1.3-7.7); Neutrophils % (A) 89 %; RBC 4.02 m/uL (3.80-5.40); RDW 15.6 % (11.5-15.5); WBC 18.2 k/uL (3.8-10.6); WBC (Perox) 18.86
[2016-07-24 19:26] LABS: ABG Base Excess 1.2 mmol/L; ABG HCO3 25 mmol/L (21-25); ABG PCO2 38 mmHg (35-45); ABG PH 7.44 (7.35-7.45); ABG PO2 112 mmHg (83-108); ABG TCO2 26 mmol/L (19-24)
[2016-07-24 19:34] LABS: INR 1.3 (<1.1); Partial Thromboplastin Time 23.8 sec (22.0-30.0)
[2016-07-24 19:44] LABS: Calcium 8.9 mg/dL (8.4-10.2); Magnesium 2.3 mg/dL (1.6-2.3); Potassium 4.7 mmol/L (3.5-5.1)
[2016-07-24 20:28] LABS: Glucose,Whole Blood 146 mg/dL (75-99)
[2016-07-24 21:18] LABS: Glucose,Whole Blood 137 mg/dL (75-99)
[2016-07-24] MEDS: MORPHINE SULFATE 2 MG/ML SYRINGE IVP PRN (22:14)
[2016-07-24 22:26] LABS: Glucose,Whole Blood 134 mg/dL (75-99)
[2016-07-24 23:18] LABS: Glucose,Whole Blood 125 mg/dL (75-99)
[2016-07-24] MEDS: HEPARIN SODIUM,PORCINE 5,000 UNIT/ML 1 ML VIAL SQ SCH (23:20)
--- NOTE | 2016-07-24 23:44 | OP ---
DATE OF SERVICE: 07/24/2016 SURGEON: Tyron Falk MD ASSISTANTS: 1. Migel Becker. 2. Thompson Banks. PREOPERATIVE DIAGNOSES: 1. Severe mitral valve regurgitation with evidence of Rheumatic features. 2. Moderate pulmonary hypertension. 3. Mild tricuspid valve regurgitation. 4. Moderate left ventricular dysfunction. 5. Mildly dilated ascending aorta. 6. Chronic obstructive pulmonary disease with tobacco abuse. 7. History of cerebrovascular accident and transient ischemic attack. 8. Diabetes mellitus. 9. Fibromyalgia. 10. Gastroesophageal reflux disease with history of Hernandez's esophagus. POSTOPERATIVE DIAGNOSES: Rheumatic mitral valve disorder. PROCEDURE: 1. Chordal preserving mitral valve replacement using a 29 mm porcine bioprosthesis, Mosaic. 2. Exclusion of the left atrial appendage using a 50 mm AtriClip. 3. Intraoperative transesophageal echocardiogram and epiaortic scanning. INDICATION FOR SURGERY: Patient is a 55-year-old lady with the above comorbidities who has been followed by Dr. Pena for mitral valve regurgitation. Patient had a recent admission in congestive heart failure. Also in the interim she had an episode of TIA. Patient had left against advice when she was seen for her neurologic problem. Patient had a workup with cardiac catheterization that showed normal coronary arteries and a REBECCA that showed severe mitral valve regurgitation with restricted and thickened leaflets and subvalvular apparatus pointing to a probable rheumatic etiology. The ejection fraction was estimated at around 45%. Patient was brought in today for elective mitral valve replacement. Discussion followed with the patient, and she opted for a bioprosthesis. Risks, benefits and alternatives were discussed with her. She understood them and agreed to proceed. DESCRIPTION OF THE PROCEDURE: Patient in supine position in the preoperative holding area. A right internal jugular Deering-Alonso catheter was inserted and a right radial arterial line. Patient's PA pressure was 70/40. Subsequently she was brought to the operating room, where general endotracheal anesthesia was induced uneventfully. Her pulmonary pressure remained high despite general anesthesia. Patient was given 2 grams of cefazolin intravenously. A Ma catheter was inserted. The chest, abdomen and both lower extremities were prepped and draped using ChloraPrep. Ioban was used to cover the skin. Transesophageal echocardiogram confirmed the preoperative finding of severe mitral valve regurgitation with no prolapse. There was restriction of the posterior leaflet mainly with thickened subvalvular apparatus and also thickened rolled edges of the anterior leaflet. There were no clots in the left atrial appendage. There was mild tricuspid valve regurgitation. No dilatation of the tricuspid annulus. The aortic valve was trileaflet. The ascending aorta was measured at 3.8 cm. Midline sternotomy was performed and the bone was moderately osteoporotic. The Miah mitral valve retractor was used to spread the sternum. No bone wax was used. Mediastinal fat was transected between 2 ties. Epiaortic scanning revealed no protruding atheroma in the ascending aorta. Pericardium was opened in an inverted T fashion and pericardial cradle was created. Findings included an enlarged right side of the heart with mild aortic valve dilatation. After systemic heparinization, after placement of respective pledgeted pursestrings, aortic cannulation with a 21 Congolese soft flow cannula, direct SVC cannulation with a 28 Congolese right angle venous cannula and IVC cannulation via the right atrial appendage with a 30 Congolese straight cannula was performed. Antegrade as well as retrograde cardioplegia catheters were placed. Cardiopulmonary bypass was initiated and the aorta was clamped. During 75 minutes of aortic clamping, myocardial protection was achieved with an initial dose of 1 liter of antegrade cold blood cardioplegia followed by 500 mL of retrograde cold blood cardioplegia. All subsequent doses were given retrograde at 15- minute intervals. The last dose was warm blood, around 1 liter, via the retrograde route. The first part of the surgery was to exclude the left atrial appendage from outside, and this was done with a 50 mm AtriClip deployed at its base. A standard left atriotomy was made after developing the intra-atrial groove. The Miah retractor allowed us to expose the valve, which was quite deep. Exploration of the valve revealed typical features of rheumatic etiology. Both commissures were partially fused. The cords were thickened and shortened where the papillary muscle head was almost at the level of the posterior leaflet. The anterior leaflet cords were also very thickened and shortened. It was obvious that we needed to replace the valve as planned. The whole posterior leaflet was preserved in situ. The anterior leaflet was partially resected and one button developed that was sutured to the annular valve suture for chordal preservation. A total of 17 sutures of Ticron 2-0 pledgeted on the atrial side was placed. A 29 mm porcine bioprosthesis Mosaic had been selected and prepared on the back table. It was brought into the field and all the sutures were passed symmetrically into the cinched valve, which went into the ventricle nicely. All the needles were cut and the sutures tied using Cor-Knot device. The cinching was removed on the valve, which was seated nicely. Exploration revealed normal functioning of the valve. Thorough irrigation was performed. Re-warming started at this point as we closed the left atrium with Prolene 3-0 pledgeted on each corner and meeting in the midline. De-airing maneuver was performed and the CO2 that was flowing over the field as long as the left-sided cavities were opened was interrupted at this point. The atriotomy closure was completed. Further de-airing maneuver given. Patient was given lidocaine and magnesium. She was loaded with Primacor and started a drip as we unclamped the aorta. Patient eventually regained spontaneous sinus rhythm with good conduction. One ventricular pacing wire was driven via the inferior aspect of the right ventricle. Two monopolar atrial pacing wires were affixed, one to the pursestring of the retrograde catheter, and the other one to the pursestring of the right atrial appendage. REBECCA showed good functioning of the valve and adequate de-airing, and no LVOT issues as we weaned off cardiopulmonary bypass on moderate-dose Primacor. PA pressures systolic were around 45 at this point, diastolic around 20. Cardiac index was 2.7. Satisfied with the hemodynamics and the REBECCA, test-dose and full-dose protamine was given. Decannulation followed. The right atrial appendage site was oversewn with Prolene 3-0 running. The antegrade cardioplegia site required a pledgeted 4-0 Prolene. Thorough irrigation was performed. One 36 Congolese substernal chest tube was left. The right pleura was at this point intentionally opened, and a 28 Congolese chest tube used to drain the right pleura. The left pleural remained grossly intact. Pericardium was approximated over the aorta and the heart. After ensuring adequate hemostasis and hemodynamics and after correct sponge, instrument and needle counts, the sternum was approximated using 5 [id number] [place] cables after interposing Fibrillar between the sternal edges. Thorough irrigation with cefazolin followed. The rest of the closure proceeded in layers. Skin glue was applied. Patient did not receive any blood bank product and received 500 mL of Cell Saver blood. She was transferred to the ICU in spontaneous sinus rhythm with good conduction. The cardiac index was 2.8 on 0.2 mcg/kg per minute of Primacor with a PA pressure of 43/21 and a mean artery pressure of 72, a CVP of 14. MTDD
[2016-07-24 23:59] LABS: Glucose,Whole Blood 149 mg/dL (75-99)
[2016-07-25 00:48] LABS: Glucose,Whole Blood 136 mg/dL (75-99)
[2016-07-25 03:36] LABS: Glucose,Whole Blood 118 mg/dL (75-99)
[2016-07-25 04:09] LABS: Glucose,Whole Blood 121 mg/dL (75-99)
[2016-07-25 04:29] LABS: Basophils % (A) 0 %; CH 26.4; CHCM 32.5; Eosinophils % (A) 0 %; HCT 32.1 % (34.0-46.0); HDW 3.16; HGB 10.4 gm/dL (11.4-16.0); Hypochromasia Slight; Luc # (Auto) 0.26; Luc % (Auto) 2; Lymphocytes # (A) 0.9 k/uL (1.0-4.8); Lymphocytes % (A) 5 %; MCH 26.6 pg (25.0-35.0); MCHC 32.5 g/dL (31.0-37.0); MCV 81.8 fL (80.0-100.0); Mean Platelet Volume 9.1; Monocytes # (A) 1.1 k/uL (0-1.0); Monocytes % (A) 7 %; Neutrophils # (A) 14.1 k/uL (1.3-7.7); Neutrophils % (A) 86 %; RBC 3.93 m/uL (3.80-5.40); RDW 15.5 % (11.5-15.5); WBC 16.4 k/uL (3.8-10.6); WBC (Perox) 16.95
[2016-07-25 05:19] LABS: ALT 32 U/L (9-52); AST 58 U/L (14-36); Alkaline Phosphatase 102 U/L (38-126); Anion Gap 11 mmol/L; Blood Urea Nitrogen 15 mg/dL (7-17); Calcium 8.9 mg/dL (8.4-10.2); Carbon Dioxide 25 mmol/L (22-30); Chloride 104 mmol/L (98-107); Glucose 116 mg/dL (74-99); Magnesium 2.2 mg/dL (1.6-2.3); Non-African American GFR(MDRD) 52 (>60 ml/min/1.73 sqM); Potassium 4.4 mmol/L (3.5-5.1); Sodium 140 mmol/L (137-145); Total Bilirubin 0.6 mg/dL (0.2-1.3); Total Protein 5.5 g/dL (6.3-8.2)
[2016-07-25] MEDS: ACETAMINOPHEN IV (For NPO) 1,000 MG in EMPTY BAG 1 BAG IVPB SCH ×2 (05:27→11:59)
[2016-07-25] MEDS: MORPHINE SULFATE 2 MG/ML SYRINGE IVP PRN (05:27)
[2016-07-25 06:11] LABS: Glucose,Whole Blood 117 mg/dL (75-99)
[2016-07-25 07:05] LABS: Glucose,Whole Blood 127 mg/dL (75-99)
--- NOTE | 2016-07-25 07:17 | XR ---
EXAMINATION TYPE: XR chest 1V portable DATE OF EXAM: 07/25/2016 COMPARISON: 07/24/2016 HISTORY: SOB, Follow Up FINDINGS: Endotracheal and NG tubes have been removed. Right-sided chest tube, mediastinal drains and Chelsea-Alonso catheter are unchanged in position. No change in bibasilar opacities. Stable appearance of the cardio-mediastinal structures at this time. Pleural effusion unchanged. IMPRESSION: 1. Stable appearance of the chest. Clinical correlation and follow up until resolution is recommended .
[2016-07-25] MEDS: MILRINONE-D5W PMX 20 MG in DEXTROSE/WATER 1 100ML.BAG IV SCH (07:37)
[2016-07-25 08:16] LABS: Glucose,Whole Blood 122 mg/dL (75-99)
[2016-07-25] MEDS: IPRATROPIUM-ALBUTEROL 3 ML NEB INHALATION SCH ×5 (08:21→20:33)
[2016-07-25] MEDS: ASPIRIN 325 MG TAB PO SCH (08:43)
[2016-07-25] MEDS: CLOPIDOGREL 75 MG TAB PO SCH (08:43)
[2016-07-25] MEDS: HEPARIN SODIUM,PORCINE 5,000 UNIT/ML 1 ML VIAL SQ SCH ×2 (08:45→16:38)
[2016-07-25] MEDS: ATORVASTATIN 40 MG TAB PO SCH (08:46)
[2016-07-25] MEDS ORDERED: METOPROLOL TARTRATE 12.5 MG TAB PO SCH (09:00)
[2016-07-25] MEDS ORDERED: PANTOPRAZOLE 40 MG/10 ML VIAL IVP SCH (09:00)
[2016-07-25] MEDS ORDERED: FUROSEMIDE 10 MG/ML 2 ML VIAL IV STA (09:06)
[2016-07-25 09:10] LABS: Glucose,Whole Blood 148 mg/dL (75-99)
[2016-07-25] MEDS: PANTOPRAZOLE 40 MG TABLET PO SCH (09:13)
[2016-07-25] MEDS: VENLAFAXINE HCL ER 150 MG CAP PO SCH ×2 (09:13→23:07)
[2016-07-25] MEDS: KETOROLAC 30 MG/ML 1 ML VIAL IVP SCH ×2 (09:20→17:10)
[2016-07-25] MEDS: ceFAZolin 2 GM in SODIUM CHLORIDE 0.9% 100 ML IVPB SCH (09:21)
--- NOTE | 2016-07-25 09:32 | P.PN ---
<Renetta Mar - Last Filed: 07/25/16 09:12> Subjective Principal diagnosis: Severe mitral valve regurgitation with evidence of traumatic features. Moderate pulmonary hypertension. Mild tricuspid valve regurgitation. Moderate left ventricular dysfunction. Mildly dilated ascending aorta. Chronic obstructive pulmonary disease with tobacco abuse. History of cerebral vascular accident and transient ischemic attack. Diabetes mellitus. Fibromyalgia. Gastroesophageal reflux disease with history of Hernandez's esophagitis. Rheumatic mitral valve disorder. POD #1 mitral valve replacement using a 29 mm porcine bioprosthesis, Mosaic. Exclusion of the left atrial appendage using a 50 mm AtriClip. Intraoperative transesophageal echocardiogram and epi-aortic scanning. The patient is currently sitting up in a recliner in no acute distress. Her incisional pain is not completely controlled. She was extubated last night at 18:50. Remains on Primacor and insulin drips. Objective - Vital Signs Vital signs: Vital Signs Temp 98.2 F 07/25/16 05:00 Pulse 103 H 07/25/16 08:38 Resp 14 07/25/16 04:00 BP 111/73 07/25/16 05:00 Pulse Ox 94 L 07/25/16 07:00 Intake & Output 07/24/16 07/25/16 07/25/16 18:59 06:59 18:59 Intake Total 600.793 304.331 15.440 Output Total 3586 844 70 Balance -2985.207 -539.669 -54.560 Weight 78.925 kg 82 kg Intake: IV 32 141 9 CO/CI 60 Pressure Bag 81 9 Intake, IV Titration 568.793 163.331 6.440 Amount ACETAMINOPHEN IV (For NPO 100 ) 1,000 mg In Empty Bag 1 bag @ 400 mls/hr IVPB Q6HR O[facility] Rx#:[id number] Insulin Regular 100 unit 3.725 13.331 4.596 In Sodium Chloride 0.9% 100 ml @ Per Protocol IV .Q0M OMAR Rx#:[id number] Lactated Ringers 1,000 ml 300 50 @ 50 mls/hr IV .Q20H OMAR Rx#:[id number] Milrinone-D5w Pmx 20 mg 100 1.844 In Dextrose/Water 1 100ml .bag @ Per Protocol IV . Q0M OMAR Rx#:[id number] Propofol 500 mg In Empty 65.068 Bag 1 bag @ Titrate IV . Q0M OMAR Rx#:[id number] ceFAZolin 2 gm In Sodium 100 Chloride 0.9% 100 ml @ 100 mls/hr IVPB Q8HR OMAR Rx#:[id number] Output: Chest Tube Drainage 76 269 30 Chest Tube Mediastinal 76 194 20 Chest Tube Right 75 10 Urine 2310 575 40 Estimated Blood Loss 1200 Other: Voiding Method Indwelling Catheter ABP, PAP, CO, CI - Last Documented Arterial Blood Pressure 108/69 Pulmonary Artery Pressure 29/21 Cardiac Output 6.7 Cardiac Index 3.8 - Constitutional General appearance: Present: cooperative, no acute distress - Respiratory Details: Lungs sounds diminished bilaterally. Respirations even, nonlabored. Currently on 6 L nasal cannula with oxygen saturation 95%. Only able to achieve 500 mL on her incentive spirometer. Mediastinal chest tube to -20 cm wall suction, 120 mL serosanguineous output overnight, 350 mL since surgery. Right pleural chest tube to -20 cm wall suction, 25 mL serosanguineous fluid drainage overnight, 85 mL since surgery. No air leaks present. - Cardiovascular Details: S1, S2 present. Regular rate and rhythm, sinus rhythm to sinus tach with occasional PVCs on telemetry. A/V epicardial pacemaker wires present but grounded. Right IJ Cordis/Neon-Alonso catheter present. Sternum stable. Heart hugger in place with patient demonstrating appropriate use. Teds/SCDs present. No edema present. - Gastrointestinal Gastrointestinal Comment(s): Abdomen soft, nontender, nondistended. Hypoactive bowel sounds present 4 quadrants. No flatus yet. Tolerating ice chips. - Genitourinary Genitourinary Comment(s): Ma present draining clear, yellow urine. Output 40 mL/h overnight. Lasix ordered. - Integumentary Integumentary Comment(s): Anterior chest incision well approximated and covered with dry intact dressing. - Musculoskeletal Musculoskeletal: Present: strength equal bilaterally - Psychiatric Psychiatric: Present: A&O x's 3, appropriate affect, intact judgment & insight - Allied health notes Allied health notes reviewed: nursing - Labs CBC & Chem 7: 07/25/16 04:00 07/25/16 04:00 Labs: Abnormal Lab Results - Last 24 Hours (Table) 07/16/16 07/24/16 07/24/16 Range/Units 12:00 09:38 10:18 WBC (3.8-10.6) k/uL Hgb (11.4-16.0) gm/dL Hct (34.0-46.0) % MCHC (31.0-37.0) g/dL RDW (11.5-15.5) % Plt Count (150-450) k/uL Neutrophils # (1.3-7.7) k/uL Lymphocytes # (1.0-4.8) k/uL Monocytes # (0-1.0) k/uL PT (9.0-12.0) sec ABG pCO2 (35-45) mmHg ABG pO2 (83-108) mmHg ABG HCO3 (21-25) mmol/L ABG Total CO2 (19-24) mmol/L ABG O2 Saturation (94-97) % Creatinine (0.52-1.04) mg/dL Glucose (74-99) mg/dL POC Glucose (mg/dL) 113 H 180 H (75-99) mg/dL Magnesium (1.6-2.3) mg/dL AST (14-36) U/L Total Protein (6.3-8.2) g/dL Albumin (3.5-5.0) g/dL Crossmatch See Detail 07/24/16 07/24/16 07/24/16 Range/Units 11:00 12:20 13:15 WBC 16.0 H (3.8-10.6) k/uL Hgb 10.4 L (11.4-16.0) gm/dL Hct 33.7 L (34.0-46.0) % MCHC (31.0-37.0) g/dL RDW (11.5-15.5) % Plt Count 135 L (150-450) k/uL Neutrophils # 13.8 H (1.3-7.7) k/uL Lymphocytes # (1.0-4.8) k/uL Monocytes # (0-1.0) k/uL PT (9.0-12.0) sec ABG pCO2 (35-45) mmHg ABG pO2 (83-108) mmHg ABG HCO3 (21-25) mmol/L ABG Total CO2 (19-24) mmol/L ABG O2 Saturation (94-97) % Creatinine (0.52-1.04) mg/dL Glucose (74-99) mg/dL POC Glucose (mg/dL) 202 H 169 H (75-99) mg/dL Magnesium (1.6-2.3) mg/dL AST (14-36) U/L Total Protein (6.3-8.2) g/dL Albumin (3.5-5.0) g/dL Crossmatch 07/24/16 07/24/16 07/24/16 Range/Units 13:15 13:15 13:24 WBC (3.8-10.6) k/uL Hgb (11.4-16.0) gm/dL Hct (34.0-46.0) % MCHC (31.0-37.0) g/dL RDW (11.5-15.5) % Plt Count (150-450) k/uL Neutrophils # (1.3-7.7) k/uL Lymphocytes # (1.0-4.8) k/uL Monocytes # (0-1.0) k/uL PT 14.1 H (9.0-12.0) sec ABG pCO2 (35-45) mmHg ABG pO2 (83-108) mmHg ABG HCO3 (21-25) mmol/L ABG Total CO2 (19-24) mmol/L ABG O2 Saturation (94-97) % Creatinine 1.07 H (0.52-1.04) mg/dL Glucose 141 H (74-99) mg/dL POC Glucose (mg/dL) 140 H (75-99) mg/dL Magnesium 2.4 H (1.6-2.3) mg/dL AST 64 H (14-36) U/L Total Protein 5.4 L (6.3-8.2) g/dL Albumin 3.0 L (3.5-5.0) g/dL Crossmatch 07/24/16 07/24/16 07/24/16 Range/Units 13:25 14:12 15:12 WBC (3.8-10.6) k/uL Hgb (11.4-16.0) gm/dL Hct (34.0-46.0) % MCHC (31.0-37.0) g/dL RDW (11.5-15.5) % Plt Count (150-450) k/uL Neutrophils # (1.3-7.7) k/uL Lymphocytes # (1.0-4.8) k/uL Monocytes # (0-1.0) k/uL PT (9.0-12.0) sec ABG pCO2 48 H (35-45) mmHg ABG pO2 205 H (83-108) mmHg ABG HCO3 26 H (21-25) mmol/L ABG Total CO2 27 H (19-24) mmol/L ABG O2 Saturation 99.7 H (94-97) % Creatinine (0.52-1.04) mg/dL Glucose (74-99) mg/dL POC Glucose (mg/dL) 133 H 139 H (75-99) mg/dL Magnesium (1.6-2.3) mg/dL AST (14-36) U/L Total Protein (6.3-8.2) g/dL Albumin (3.5-5.0) g/dL Crossmatch 07/24/16 07/24/16 07/24/16 Range/Units 16:18 16:18 16:18 WBC 20.1 H (3.8-10.6) k/uL Hgb 10.8 L (11.4-16.0) gm/dL Hct (34.0-46.0) % MCHC 30.5 L (31.0-37.0) g/dL RDW 15.6 H (11.5-15.5) % Plt Count 147 L (150-450) k/uL Neutrophils # 17.4 H (1.3-7.7) k/uL Lymphocytes # (1.0-4.8) k/uL Monocytes # 1.4 H (0-1.0) k/uL PT 12.9 H (9.0-12.0) sec ABG pCO2 (35-45) mmHg ABG pO2 (83-108) mmHg ABG HCO3 (21-25) mmol/L ABG Total CO2 (19-24) mmol/L ABG O2 Saturation (94-97) % Creatinine 1.09 H (0.52-1.04) mg/dL Glucose 122 H (74-99) mg/dL POC Glucose (mg/dL) (75-99) mg/dL Magnesium (1.6-2.3) mg/dL AST 66 H (14-36) U/L Total Protein 5.7 L (6.3-8.2) g/dL Albumin 3.2 L (3.5-5.0) g/dL Crossmatch 07/24/16 07/24/16 07/24/16 Range/Units 16:24 17:11 18:39 WBC (3.8-10.6) k/uL Hgb (11.4-16.0) gm/dL Hct (34.0-46.0) % MCHC (31.0-37.0) g/dL RDW (11.5-15.5) % Plt Count (150-450) k/uL Neutrophils # (1.3-7.7) k/uL Lymphocytes # (1.0-4.8) k/uL Monocytes # (0-1.0) k/uL PT (9.0-12.0) sec ABG pCO2 (35-45) mmHg ABG pO2 112 H (83-108) mmHg ABG HCO3 (21-25) mmol/L ABG Total CO2 26 H (19-24) mmol/L ABG O2 Saturation 99.0 H (94-97) % Creatinine (0.52-1.04) mg/dL Glucose (74-99) mg/dL POC Glucose (mg/dL) 117 H 112 H (75-99) mg/dL Magnesium (1.6-2.3) mg/dL AST (14-36) U/L Total Protein (6.3-8.2) g/dL Albumin (3.5-5.0) g/dL Crossmatch 07/24/16 07/24/16 07/24/16 Range/Units 19:03 19:06 19:06 WBC 18.2 H (3.8-10.6) k/uL Hgb 10.9 L (11.4-16.0) gm/dL Hct (34.0-46.0) % MCHC (31.0-37.0) g/dL RDW 15.6 H (11.5-15.5) % Plt Count 145 L (150-450) k/uL Neutrophils # 16.2 H (1.3-7.7) k/uL Lymphocytes # 0.6 L (1.0-4.8) k/uL Monocytes # 1.1 H (0-1.0) k/uL PT (9.0-12.0) sec ABG pCO2 (35-45) mmHg ABG pO2 (83-108) mmHg ABG HCO3 (21-25) mmol/L ABG Total CO2 (19-24) mmol/L ABG O2 Saturation (94-97) % Creatinine 1.14 H (0.52-1.04) mg/dL Glucose 147 H (74-99) mg/dL POC Glucose (mg/dL) 144 H (75-99) mg/dL Magnesium (1.6-2.3) mg/dL AST (14-36) U/L Total Protein (6.3-8.2) g/dL Albumin (3.5-5.0) g/dL Crossmatch 07/24/16 07/24/16 07/24/16 Range/Units 19:06 20:27 21:17 WBC (3.8-10.6) k/uL Hgb (11.4-16.0) gm/dL Hct (34.0-46.0) % MCHC (31.0-37.0) g/dL RDW (11.5-15.5) % Plt Count (150-450) k/uL Neutrophils # (1.3-7.7) k/uL Lymphocytes # (1.0-4.8) k/uL Monocytes # (0-1.0) k/uL PT 13.0 H (9.0-12.0) sec ABG pCO2 (35-45) mmHg ABG pO2 (83-108) mmHg ABG HCO3 (21-25) mmol/L ABG Total CO2 (19-24) mmol/L ABG O2 Saturation (94-97) % Creatinine (0.52-1.04) mg/dL Glucose (74-99) mg/dL POC Glucose (mg/dL) 146 H 137 H (75-99) mg/dL Magnesium (1.6-2.3) mg/dL AST (14-36) U/L Total Protein (6.3-8.2) g/dL Albumin (3.5-5.0) g/dL Crossmatch 07/24/16 07/24/16 07/24/16 Range/Units 22:13 23:16 23:59 WBC (3.8-10.6) k/uL Hgb (11.4-16.0) gm/dL Hct (34.0-46.0) % MCHC (31.0-37.0) g/dL RDW (11.5-15.5) % Plt Count (150-450) k/uL Neutrophils # (1.3-7.7) k/uL Lymphocytes # (1.0-4.8) k/uL Monocytes # (0-1.0) k/uL PT (9.0-12.0) sec ABG pCO2 (35-45) mmHg ABG pO2 (83-108) mmHg ABG HCO3 (21-25) mmol/L ABG Total CO2 (19-24) mmol/L ABG O2 Saturation (94-97) % Creatinine (0.52-1.04) mg/dL Glucose (74-99) mg/dL POC Glucose (mg/dL) 134 H 125 H 149 H (75-99) mg/dL Magnesium (1.6-2.3) mg/dL AST (14-36) U/L Total Protein (6.3-8.2) g/dL Albumin (3.5-5.0) g/dL Crossmatch 07/25/16 07/25/16 07/25/16 Range/Units 00:45 03:24 03:54 WBC (3.8-10.6) k/uL Hgb (11.4-16.0) gm/dL Hct (34.0-46.0) % MCHC (31.0-37.0) g/dL RDW (11.5-15.5) % Plt Count (150-450) k/uL Neutrophils # (1.3-7.7) k/uL Lymphocytes # (1.0-4.8) k/uL Monocytes # (0-1.0) k/uL PT (9.0-12.0) sec ABG pCO2 (35-45) mmHg ABG pO2 (83-108) mmHg ABG HCO3 (21-25) mmol/L ABG Total CO2 (19-24) mmol/L ABG O2 Saturation (94-97) % Creatinine (0.52-1.04) mg/dL Glucose (74-99) mg/dL POC Glucose (mg/dL) 136 H 118 H 121 H (75-99) mg/dL Magnesium (1.6-2.3) mg/dL AST (14-36) U/L Total Protein (6.3-8.2) g/dL Albumin (3.5-5.0) g/dL Crossmatch 07/25/16 07/25/16 07/25/16 Range/Units 04:00 04:00 06:09 WBC 16.4 H (3.8-10.6) k/uL Hgb 10.4 L (11.4-16.0) gm/dL Hct 32.1 L (34.0-46.0) % MCHC (31.0-37.0) g/dL RDW (11.5-15.5) % Plt Count 138 L (150-450) k/uL Neutrophils # 14.1 H (1.3-7.7) k/uL Lymphocytes # 0.9 L (1.0-4.8) k/uL Monocytes # 1.1 H (0-1.0) k/uL PT (9.0-12.0) sec ABG pCO2 (35-45) mmHg ABG pO2 (83-108) mmHg ABG HCO3 (21-25) mmol/L ABG Total CO2 (19-24) mmol/L ABG O2 Saturation (94-97) % Creatinine 1.10 H (0.52-1.04) mg/dL Glucose 116 H (74-99) mg/dL POC Glucose (mg/dL) 117 H (75-99) mg/dL Magnesium (1.6-2.3) mg/dL AST 58 H (14-36) U/L Total Protein 5.5 L (6.3-8.2) g/dL Albumin 3.2 L (3.5-5.0) g/dL Crossmatch 07/25/16 07/25/16 07/25/16 Range/Units 07:03 08:02 09:07 WBC (3.8-10.6) k/uL Hgb (11.4-16.0) gm/dL Hct (34.0-46.0) % MCHC (31.0-37.0) g/dL RDW (11.5-15.5) % Plt Count (150-450) k/uL Neutrophils # (1.3-7.7) k/uL Lymphocytes # (1.0-4.8) k/uL Monocytes # (0-1.0) k/uL PT (9.0-12.0) sec ABG pCO2 (35-45) mmHg ABG pO2 (83-108) mmHg ABG HCO3 (21-25) mmol/L ABG Total CO2 (19-24) mmol/L ABG O2 Saturation (94-97) % Creatinine (0.52-1.04) mg/dL Glucose (74-99) mg/dL POC Glucose (mg/dL) 127 H 122 H 148 H (75-99) mg/dL Magnesium (1.6-2.3) mg/dL AST (14-36) U/L Total Protein (6.3-8.2) g/dL Albumin (3.5-5.0) g/dL Crossmatch - Imaging and Cardiology Chest x-ray: report reviewed, image reviewed Assessment and Plan (1) Moderate to severe pulmonary hypertension Status: Acute (2) Mild tricuspid regurgitation Status: Acute (3) Moderate left ventricular systolic dysfunction Status: Acute (4) Fibromyalgia Status: Acute (5) Gastroesophageal reflux disease Status: Acute (6) History of CVA (cerebrovascular accident) Status: Acute (7) S/P gastric bypass Status: Acute (8) Severe mitral regurgitation Status: Acute (9) COPD (chronic obstructive pulmonary disease) Status: Chronic (10) Tobacco abuse, in remission Status: Chronic (11) Type 2 diabetes, controlled, with neuropathy Status: Chronic Plan: 1. Continue aspirin, Lipitor, Plavix, heparin subcu, beta daphne. 2. Wean off Primacor and discontinue Neon-Alonso catheter. 3. Will give Lasix 20 mg IV push 1. 4. Will add Toradol for pain control. 5. Wean O2 as tolerated. Encourage incentive spirometry use. 6. Increase activity, ambulate in hallway. Physical therapy to follow. 7. GI/DVT prophylaxis. 8. Monitor daily labs, x-rays. 9. Insulin drip/diabetic management per internal medicine service. 10. More recommendations as patient progresses. Time with Patient: Greater than 30 <Tyron Falk - Last Filed: 07/25/16 16:29> Subjective Principal diagnosis: rheumatic Objective - Vital Signs Vital signs: Vital Signs Temp 98.2 F 07/25/16 05:00 Pulse 108 H 07/25/16 16:27 Resp 14 07/25/16 15:00 BP 111/73 07/25/16 05:00 Pulse Ox 96 07/25/16 15:00 Intake & Output 07/24/16 07/25/16 07/25/16 18:59 06:59 18:59 Intake Total 600.793 304.331 988.922 Output Total 3586 844 542 Balance -2985.207 -539.669 446.922 Weight 78.925 kg 82 kg Intake: IV 32 141 128 CO/CI 60 50 Pressure Bag 81 78 Intake, IV Titration 568.793 163.331 460.922 Amount ACETAMINOPHEN IV (For NPO 100 100 ) 1,000 mg In Empty Bag 1 bag @ 400 mls/hr IVPB Q6HR O[facility] Rx#:[id number] Insulin Regular 100 unit 3.725 13.331 13.571 In Sodium Chloride 0.9% 100 ml @ Per Protocol IV .Q0M O[facility] Rx#:[id number] Lactated Ringers 1,000 ml 300 50 240 @ 20 mls/hr IV .Q24H O[facility] Rx#:[id number] Milrinone-D5w Pmx 20 mg 100 7.351 In Dextrose/Water 1 100ml .bag @ Per Protocol IV . Q0M OMAR Rx#:[id number] Propofol 500 mg In Empty 65.068 Bag 1 bag @ Titrate IV . Q0M OMAR Rx#:[id number] ceFAZolin 2 gm In Sodium 100 100 Chloride 0.9% 100 ml @ 100 mls/hr IVPB Q8HR O[facility] Rx#:[id number] Oral 400 Output: Chest Tube Drainage 76 269 251 Chest Tube Mediastinal 76 194 200 Chest Tube Right 75 51 Urine 2310 575 291 Estimated Blood Loss 1200 Other: Voiding Method Indwelling Catheter Indwelling Catheter ABP, PAP, CO, CI - Last Documented Arterial Blood Pressure 138/77 Pulmonary Artery Pressure 43/28 Cardiac Output 4.6 Cardiac Index 3.2 - Labs CBC & Chem 7: 07/25/16 04:00 07/25/16 04:00 Labs: Abnormal Lab Results - Last 24 Hours (Table) 07/16/16 07/24/16 07/24/16 Range/Units 12:00 16:18 16:18 WBC (3.8-10.6) k/uL Hgb (11.4-16.0) gm/dL Hct (34.0-46.0) % MCHC (31.0-37.0) g/dL RDW (11.5-15.5) % Plt Count (150-450) k/uL Neutrophils # (1.3-7.7) k/uL Lymphocytes # (1.0-4.8) k/uL Monocytes # (0-1.0) k/uL PT 12.9 H (9.0-12.0) sec ABG pO2 (83-108) mmHg ABG Total CO2 (19-24) mmol/L ABG O2 Saturation (94-97) % Creatinine 1.09 H (0.52-1.04) mg/dL Glucose 122 H (74-99) mg/dL POC Glucose (mg/dL) (75-99) mg/dL AST 66 H (14-36) U/L Total Protein 5.7 L (6.3-8.2) g/dL Albumin 3.2 L (3.5-5.0) g/dL Crossmatch See Detail 07/24/16 07/24/16 07/24/16 Range/Units 16:18 17:11 18:39 WBC 20.1 H (3.8-10.6) k/uL Hgb 10.8 L (11.4-16.0) gm/dL Hct (34.0-46.0) % MCHC 30.5 L (31.0-37.0) g/dL RDW 15.6 H (11.5-15.5) % Plt Count 147 L (150-450) k/uL Neutrophils # 17.4 H (1.3-7.7) k/uL Lymphocytes # (1.0-4.8) k/uL Monocytes # 1.4 H (0-1.0) k/uL PT (9.0-12.0) sec ABG pO2 112 H (83-108) mmHg ABG Total CO2 26 H (19-24) mmol/L ABG O2 Saturation 99.0 H (94-97) % Creatinine (0.52-1.04) mg/dL Glucose (74-99) mg/dL POC Glucose (mg/dL) 112 H (75-99) mg/dL AST (14-36) U/L Total Protein (6.3-8.2) g/dL Albumin (3.5-5.0) g/dL Crossmatch 07/24/16 07/24/16 07/24/16 Range/Units 19:03 19:06 19:06 WBC 18.2 H (3.8-10.6) k/uL Hgb 10.9 L (11.4-16.0) gm/dL Hct (34.0-46.0) % MCHC (31.0-37.0) g/dL RDW 15.6 H (11.5-15.5) % Plt Count 145 L (150-450) k/uL Neutrophils # 16.2 H (1.3-7.7) k/uL Lymphocytes # 0.6 L (1.0-4.8) k/uL Monocytes # 1.1 H (0-1.0) k/uL PT (9.0-12.0) sec ABG pO2 (83-108) mmHg ABG Total CO2 (19-24) mmol/L ABG O2 Saturation (94-97) % Creatinine 1.14 H (0.52-1.04) mg/dL Glucose 147 H (74-99) mg/dL POC Glucose (mg/dL) 144 H (75-99) mg/dL AST (14-36) U/L Total Protein (6.3-8.2) g/dL Albumin (3.5-5.0) g/dL Crossmatch 07/24/16 07/24/16 07/24/16 Range/Units 19:06 20:27 21:17 WBC (3.8-10.6) k/uL Hgb (11.4-16.0) gm/dL Hct (34.0-46.0) % MCHC (31.0-37.0) g/dL RDW (11.5-15.5) % Plt Count (150-450) k/uL Neutrophils # (1.3-7.7) k/uL Lymphocytes # (1.0-4.8) k/uL Monocytes # (0-1.0) k/uL PT 13.0 H (9.0-12.0) sec ABG pO2 (83-108) mmHg ABG Total CO2 (19-24) mmol/L ABG O2 Saturation (94-97) % Creatinine (0.52-1.04) mg/dL Glucose (74-99) mg/dL POC Glucose (mg/dL) 146 H 137 H (75-99) mg/dL AST (14-36) U/L Total Protein (6.3-8.2) g/dL Albumin (3.5-5.0) g/dL Crossmatch 07/24/16 07/24/16 07/24/16 Range/Units 22:13 23:16 23:59 WBC (3.8-10.6) k/uL Hgb (11.4-16.0) gm/dL Hct (34.0-46.0) % MCHC (31.0-37.0) g/dL RDW (11.5-15.5) % Plt Count (150-450) k/uL Neutrophils # (1.3-7.7) k/uL Lymphocytes # (1.0-4.8) k/uL Monocytes # (0-1.0) k/uL PT (9.0-12.0) sec ABG pO2 (83-108) mmHg ABG Total CO2 (19-24) mmol/L ABG O2 Saturation (94-97) % Creatinine (0.52-1.04) mg/dL Glucose (74-99) mg/dL POC Glucose (mg/dL) 134 H 125 H 149 H (75-99) mg/dL AST (14-36) U/L Total Protein (6.3-8.2) g/dL Albumin (3.5-5.0) g/dL Crossmatch 07/25/16 07/25/16 07/25/16 Range/Units 00:45 03:24 03:54 WBC (3.8-10.6) k/uL Hgb (11.4-16.0) gm/dL Hct (34.0-46.0) % MCHC (31.0-37.0) g/dL RDW (11.5-15.5) % Plt Count (150-450) k/uL Neutrophils # (1.3-7.7) k/uL Lymphocytes # (1.0-4.8) k/uL Monocytes # (0-1.0) k/uL PT (9.0-12.0) sec ABG pO2 (83-108) mmHg ABG Total CO2 (19-24) mmol/L ABG O2 Saturation (94-97) % Creatinine (0.52-1.04) mg/dL Glucose (74-99) mg/dL POC Glucose (mg/dL) 136 H 118 H 121 H (75-99) mg/dL AST (14-36) U/L Total Protein (6.3-8.2) g/dL Albumin (3.5-5.0) g/dL Crossmatch 07/25/16 07/25/16 07/25/16 Range/Units 04:00 04:00 06:09 WBC 16.4 H (3.8-10.6) k/uL Hgb 10.4 L (11.4-16.0) gm/dL Hct 32.1 L (34.0-46.0) % MCHC (31.0-37.0) g/dL RDW (11.5-15.5) % Plt Count 138 L (150-450) k/uL Neutrophils # 14.1 H (1.3-7.7) k/uL Lymphocytes # 0.9 L (1.0-4.8) k/uL Monocytes # 1.1 H (0-1.0) k/uL PT (9.0-12.0) sec ABG pO2 (83-108) mmHg ABG Total CO2 (19-24) mmol/L ABG O2 Saturation (94-97) % Creatinine 1.10 H (0.52-1.04) mg/dL Glucose 116 H (74-99) mg/dL POC Glucose (mg/dL) 117 H (75-99) mg/dL AST 58 H (14-36) U/L Total Protein 5.5 L (6.3-8.2) g/dL Albumin 3.2 L (3.5-5.0) g/dL Crossmatch 07/25/16 07/25/16 07/25/16 Range/Units 07:03 08:02 09:07 WBC (3.8-10.6) k/uL Hgb (11.4-16.0) gm/dL Hct (34.0-46.0) % MCHC (31.0-37.0) g/dL RDW (11.5-15.5) % Plt Count (150-450) k/uL Neutrophils # (1.3-7.7) k/uL Lymphocytes # (1.0-4.8) k/uL Monocytes # (0-1.0) k/uL PT (9.0-12.0) sec ABG pO2 (83-108) mmHg ABG Total CO2 (19-24) mmol/L ABG O2 Saturation (94-97) % Creatinine (0.52-1.04) mg/dL Glucose (74-99) mg/dL POC Glucose (mg/dL) 127 H 122 H 148 H (75-99) mg/dL AST (14-36) U/L Total Protein (6.3-8.2) g/dL Albumin (3.5-5.0) g/dL Crossmatch 07/25/16 07/25/16 07/25/16 Range/Units 09:59 11:04 12:07 WBC (3.8-10.6) k/uL Hgb (11.4-16.0) gm/dL Hct (34.0-46.0) % MCHC (31.0-37.0) g/dL RDW (11.5-15.5) % Plt Count (150-450) k/uL Neutrophils # (1.3-7.7) k/uL Lymphocytes # (1.0-4.8) k/uL Monocytes # (0-1.0) k/uL PT (9.0-12.0) sec ABG pO2 (83-108) mmHg ABG Total CO2 (19-24) mmol/L ABG O2 Saturation (94-97) % Creatinine (0.52-1.04) mg/dL Glucose (74-99) mg/dL POC Glucose (mg/dL) 153 H 138 H 116 H (75-99) mg/dL AST (14-36) U/L Total Protein (6.3-8.2) g/dL Albumin (3.5-5.0) g/dL Crossmatch 07/25/16 07/25/16 07/25/16 Range/Units 13:07 14:09 15:08 WBC (3.8-10.6) k/uL Hgb (11.4-16.0) gm/dL Hct (34.0-46.0) % MCHC (31.0-37.0) g/dL RDW (11.5-15.5) % Plt Count (150-450) k/uL Neutrophils # (1.3-7.7) k/uL Lymphocytes # (1.0-4.8) k/uL Monocytes # (0-1.0) k/uL PT (9.0-12.0) sec ABG pO2 (83-108) mmHg ABG Total CO2 (19-24) mmol/L ABG O2 Saturation (94-97) % Creatinine (0.52-1.04) mg/dL Glucose (74-99) mg/dL POC Glucose (mg/dL) 108 H 127 H 134 H (75-99) mg/dL AST (14-36) U/L Total Protein (6.3-8.2) g/dL Albumin (3.5-5.0) g/dL Crossmatch 07/25/16 Range/Units 15:58 WBC (3.8-10.6) k/uL Hgb (11.4-16.0) gm/dL Hct (34.0-46.0) % MCHC (31.0-37.0) g/dL RDW (11.5-15.5) % Plt Count (150-450) k/uL Neutrophils # (1.3-7.7) k/uL Lymphocytes # (1.0-4.8) k/uL Monocytes # (0-1.0) k/uL PT (9.0-12.0) sec ABG pO2 (83-108) mmHg ABG Total CO2 (19-24) mmol/L ABG O2 Saturation (94-97) % Creatinine (0.52-1.04) mg/dL Glucose (74-99) mg/dL POC Glucose (mg/dL) 112 H (75-99) mg/dL AST (14-36) U/L Total Protein (6.3-8.2) g/dL Albumin (3.5-5.0) g/dL Crossmatch
[2016-07-25 10:02] LABS: Glucose,Whole Blood 153 mg/dL (75-99)
--- NOTE | 2016-07-25 10:03 | P.CONS ---
History of Present Illness - Reason for Consult Consult date: 07/25/16 Medical management Requesting physician: Tyron Falk - Chief Complaint Status post mitral valve repair - History of Present Illness This is a 56-year-old female with a known past medical history of severe mitral valve regurgitation, congestive heart failure, moderate pulmonary hypertension, COPD, TIA, diabetes mellitus, GERD, Shipman's esophagus that was surgically repaired. Patient underwent mitral valve repair with Dr. helder castrejon on yesterday 07/24/2016. Tolerated surgery well. Was able to be extubated yesterday. She is currently sitting at the bedside chair. Pain is tolerable. Has chest tubes in place. Denies any nausea or vomiting. No bowel movement yet. Urine output adequate. We'll consulted for medical management. Review of Systems Please refer to HPI otherwise unremarkable Past Medical History Past Medical History: Heart Failure, COPD, CVA/TIA, Diabetes Mellitus, Fibromyalgia, GERD/Reflux, Hypertension, Pneumonia Additional Past Medical History / Comment(s): Heart murmur,mass on thyroidHx SHIPMAN'S ESOPHAGUS, past hiatal hernia, chronic back and neck pain, stroke 2015 with L arm weakness,TIA 06/26/16, chronic bronchitis (bronchitis and pneumonia April 2016), migraines in past History of Any Multi-Drug Resistant Organisms: None Reported Past Surgical History: Appendectomy, Back Surgery, Bariatric Surgery, Section, Cholecystectomy, Heart Catheterization, Joint Replacement, Tubal Ligation Additional Past Surgical History / Comment(s): BACK SX X2 including a fusion, has CLC implanted in back (tens unit)lower left back/posterior hip, cervical fusion, 11-06-15 [facility] repair of hiatal hernia & Shipman's Esophagus,EGD with dilation and removal of a staple,rt knee arthroscopy Past Anesthesia/Blood Transfusion Reactions: Motion Sickness Additional Past Anesthesia/Blood Transfusion Reaction / Comm: Severe PONV, stated ""stopped breathing on roller coaster",took long time to wake up after bariatric surgery,no hx blood transfusion Past Psychological History: Depression Additional Psychological History / Comment(s): Pt lives in home with . Pt states she has depression and is on meds for that which have been very effective. There are adult children in the home. Pt is independent. Smoking Status: Former smoker Past Alcohol Use History: None Reported Additional Past Alcohol Use History / Comment(s): quit smoking 01/11/15. smoked >25 years-1 ppd. Past Drug Use History: None Reported - Past Family History Sister(s) Family Medical History: Myocardial Infarction (LA) Additional Family Medical History / Comment(s): at age 43 if [place] Mother Family Medical History: Myocardial Infarction (LA) Additional Family Medical History / Comment(s): Mother at age 62 of [place]. Father Family Medical History: Myocardial Infarction ([place]) Additional Family Medical History / Comment(s): Father in his 40's of a [place]. Medications and Allergies Home Medications Medication Instructions Recorded Confirmed Type Albuterol Nebulized [Ventolin 2.5 mg INHALATION RT-QID 07/07/13 07/24/16 History Nebulized] Venlafaxine HCl [Effexor XR] 150 mg PO BID 01/12/15 07/24/16 History oxyCODONE-APAP 10-325MG [Percocet 1 tab PO Q6HR 01/12/15 07/24/16 History 10-325 mg] Tiotropium [place] [Spiriva] 1 cap INHALATION RT-DAILY 03/09/15 07/24/16 History Baclofen 10 mg PO TID 05/31/15 07/24/16 History Albuterol Sulfate [Proair Hfa] 2 puff INHALATION RT-Q6H PRN 08/09/15 07/24/16 History Budesonide-Formot 160-4.5 Mcg 2 puff INHALATION RT-BID 08/20/15 07/24/16 History [Symbicort 160-4.5 Mcg Inhaler] Cholecalciferol [Vitamin D3] 2,000 unit PO HS 06/10/16 07/24/16 History Aspirin [Adult Low Dose Aspirin EC] 81 mg PO DAILY 06/28/16 07/24/16 History Multivitamins, Thera [Multivitamin 1 tab PO HS 06/28/16 07/24/16 History (formulary)] Vitamin A 8,000 unit PO HS 07/02/16 07/24/16 History Omeprazole 40 mg PO QAM 07/16/16 07/24/16 History Temazepam [Restoril] 15 mg PO HS PRN 07/16/16 07/24/16 History Allergies Allergy/AdvReac Type Severity Reaction Status Date / Time Mushroom AdvReac Nausea & Verified 07/24/16 12:51 Vomiting Physical Exam Vitals: Vital Signs Temp Pulse Pulse Pulse Resp BP BP 07/25/16 08:38 103 H 07/25/16 08:21 111 H 07/25/16 07:00 112 H 07/25/16 06:00 109 H 07/25/16 05:00 98.2 F 108 H 111/73 07/25/16 04:00 98.1 F 92 89 14 111/73 07/25/16 03:00 98.1 F 87 14 07/25/16 02:00 89 15 07/25/16 01:00 87 15 07/25/16 00:00 97 F L 85 89 14 07/24/16 23:00 97.3 F L 85 07/24/16 22:17 86 07/24/16 22:00 97.3 F L 85 07/24/16 21:00 97 F L 82 07/24/16 20:00 96.8 F L 81 89 14 07/24/16 19:51 80 07/24/16 19:41 84 07/24/16 19:15 83 07/24/16 19:00 96.6 F L 87 07/24/16 18:45 88 07/24/16 18:30 108 H 07/24/16 18:15 105 H 07/24/16 18:00 96.6 F L 86 07/24/16 17:45 87 07/24/16 17:30 83 07/24/16 17:15 89 07/24/16 17:00 96.2 F L 89 07/24/16 16:45 85 07/24/16 16:30 87 07/24/16 16:15 84 07/24/16 16:00 96.1 F L 88 89 19 07/24/16 15:45 88 07/24/16 15:30 87 07/24/16 15:25 84 07/24/16 15:15 90 105/73 07/24/16 15:11 88 07/24/16 15:00 96.3 F L 89 19 105/73 07/24/16 14:45 89 105/73 07/24/16 14:30 86 105/73 07/24/16 14:20 86 105/73 07/24/16 14:10 83 105/73 07/24/16 14:00 96.3 F L 79 105/73 07/24/16 13:50 84 105/73 07/24/16 13:40 82 105/73 07/24/16 13:30 80 105/73 07/24/16 13:20 76 89 80 18 07/24/16 13:13 80 07/24/16 12:41 36.1 F L 80 14 132/74 Pulse Ox 07/25/16 08:38 07/25/16 08:21 07/25/16 07:00 94 L 07/25/16 06:00 96 07/25/16 05:00 95 07/25/16 04:00 95 07/25/16 03:00 95 07/25/16 02:00 96 07/25/16 01:00 97 07/25/16 00:00 96 07/24/16 23:00 96 07/24/16 22:17 95 07/24/16 22:00 97 07/24/16 21:00 97 07/24/16 20:00 97 07/24/16 19:51 07/24/16 19:41 07/24/16 19:15 97 07/24/16 19:00 97 07/24/16 18:45 98 07/24/16 18:30 97 07/24/16 18:15 97 07/24/16 18:00 97 07/24/16 17:45 98 07/24/16 17:30 98 07/24/16 17:15 98 07/24/16 17:00 98 07/24/16 16:45 97 07/24/16 16:30 97 07/24/16 16:15 97 07/24/16 16:00 97 07/24/16 15:45 97 07/24/16 15:30 96 07/24/16 15:25 07/24/16 15:15 99 07/24/16 15:11 07/24/16 15:00 97 07/24/16 14:45 98 07/24/16 14:30 98 07/24/16 14:20 97 07/24/16 14:10 97 07/24/16 14:00 97 07/24/16 13:50 97 07/24/16 13:40 98 07/24/16 13:30 99 07/24/16 13:20 99 07/24/16 13:13 07/24/16 12:41 99 Intake and Output 07/24/16 07/25/16 07/25/16 22:59 06:59 14:59 Intake Total 570.415 202.709 15.798 Output Total 1414 505 70 Balance -843.585 -302.291 -54.202 Intake: IV 47 94 9 CO/CI 20 40 Pressure Bag 27 54 9 Intake, IV Titration 523.415 108.709 6.798 Amount ACETAMINOPHEN IV (For NPO 100 ) 1,000 mg In Empty Bag 1 bag @ 400 mls/hr IVPB Q6HR OMAR Rx#:[id number] Insulin Regular 100 unit 8.347 8.709 4.954 In Sodium Chloride 0.9% 100 ml @ Per Protocol IV .Q0M OMAR Rx#:[id number] Lactated Ringers 1,000 ml 250 @ 50 mls/hr IV .Q20H OMAR Rx#:[id number] Milrinone-D5w Pmx 20 mg 100 1.844 In Dextrose/Water 1 100ml .bag @ Per Protocol IV . Q0M OMAR Rx#:[id number] Propofol 500 mg In Empty 65.068 Bag 1 bag @ Titrate IV . Q0M OMAR Rx#:[id number] ceFAZolin 2 gm In Sodium 100 Chloride 0.9% 100 ml @ 100 mls/hr IVPB Q8HR OMAR Rx#:[id number] Output: Chest Tube Drainage 149 185 30 Chest Tube Mediastinal 109 150 20 Chest Tube Right 40 35 10 Urine 1265 320 40 Other: Voiding Method Indwelling Catheter Indwelling Catheter Weight 78.925 kg 82 kg ABP, PAP, CO, CI - Last 8 Hours Arterial Blood Pressure 108/69 Arterial Blood Pressure 128/62 Arterial Blood Pressure 119/68 Arterial Blood Pressure 127/68 Arterial Blood Pressure 121/62 Arterial Blood Pressure 131/70 Pulmonary Artery Pressure 29/21 Pulmonary Artery Pressure 34/24 Pulmonary Artery Pressure 31/22 Pulmonary Artery Pressure 34/24 Pulmonary Artery Pressure 32/23 Pulmonary Artery Pressure 33/23 Cardiac Output 6.7 Cardiac Output 6.7 Cardiac Output 6.7 Cardiac Output 6.7 Cardiac Output 7.1 Cardiac Output 7.1 Head normocephalic Neck supple Lungs diminished. Heart regular rate and rhythm S1-S2, no rub or gallop. Incision site dressing clean dry and intact Abdomen is soft nontender nondistended positive bowel sounds no hepatosplenomegaly Extremities no edema Neuro alert and orientated to 3 Results CBC & Chem 7: 07/25/16 04:00 07/25/16 04:00 Labs: Abnormal Lab Results - Last 24 Hours (Table) 07/16/16 07/24/16 07/24/16 Range/Units 12:00 10:18 11:00 WBC (3.8-10.6) k/uL Hgb (11.4-16.0) gm/dL Hct (34.0-46.0) % MCHC (31.0-37.0) g/dL RDW (11.5-15.5) % Plt Count (150-450) k/uL Neutrophils # (1.3-7.7) k/uL Lymphocytes # (1.0-4.8) k/uL Monocytes # (0-1.0) k/uL PT (9.0-12.0) sec ABG pCO2 (35-45) mmHg ABG pO2 (83-108) mmHg ABG HCO3 (21-25) mmol/L ABG Total CO2 (19-24) mmol/L ABG O2 Saturation (94-97) % Creatinine (0.52-1.04) mg/dL Glucose (74-99) mg/dL POC Glucose (mg/dL) 180 H 202 H (75-99) mg/dL Magnesium (1.6-2.3) mg/dL AST (14-36) U/L Total Protein (6.3-8.2) g/dL Albumin (3.5-5.0) g/dL Crossmatch See Detail 07/24/16 07/24/16 07/24/16 Range/Units 12:20 13:15 13:15 WBC 16.0 H (3.8-10.6) k/uL Hgb 10.4 L (11.4-16.0) gm/dL Hct 33.7 L (34.0-46.0) % MCHC (31.0-37.0) g/dL RDW (11.5-15.5) % Plt Count 135 L (150-450) k/uL Neutrophils # 13.8 H (1.3-7.7) k/uL Lymphocytes # (1.0-4.8) k/uL Monocytes # (0-1.0) k/uL PT (9.0-12.0) sec ABG pCO2 (35-45) mmHg ABG pO2 (83-108) mmHg ABG HCO3 (21-25) mmol/L ABG Total CO2 (19-24) mmol/L ABG O2 Saturation (94-97) % Creatinine 1.07 H (0.52-1.04) mg/dL Glucose 141 H (74-99) mg/dL POC Glucose (mg/dL) 169 H (75-99) mg/dL Magnesium 2.4 H (1.6-2.3) mg/dL AST 64 H (14-36) U/L Total Protein 5.4 L (6.3-8.2) g/dL Albumin 3.0 L (3.5-5.0) g/dL Crossmatch 07/24/16 07/24/16 07/24/16 Range/Units 13:15 13:24 13:25 WBC (3.8-10.6) k/uL Hgb (11.4-16.0) gm/dL Hct (34.0-46.0) % MCHC (31.0-37.0) g/dL RDW (11.5-15.5) % Plt Count (150-450) k/uL Neutrophils # (1.3-7.7) k/uL Lymphocytes # (1.0-4.8) k/uL Monocytes # (0-1.0) k/uL PT 14.1 H (9.0-12.0) sec ABG pCO2 48 H (35-45) mmHg ABG pO2 205 H (83-108) mmHg ABG HCO3 26 H (21-25) mmol/L ABG Total CO2 27 H (19-24) mmol/L ABG O2 Saturation 99.7 H (94-97) % Creatinine (0.52-1.04) mg/dL Glucose (74-99) mg/dL POC Glucose (mg/dL) 140 H (75-99) mg/dL Magnesium (1.6-2.3) mg/dL AST (14-36) U/L Total Protein (6.3-8.2) g/dL Albumin (3.5-5.0) g/dL Crossmatch 07/24/16 07/24/16 07/24/16 Range/Units 14:12 15:12 16:18 WBC (3.8-10.6) k/uL Hgb (11.4-16.0) gm/dL Hct (34.0-46.0) % MCHC (31.0-37.0) g/dL RDW (11.5-15.5) % Plt Count (150-450) k/uL Neutrophils # (1.3-7.7) k/uL Lymphocytes # (1.0-4.8) k/uL Monocytes # (0-1.0) k/uL PT (9.0-12.0) sec ABG pCO2 (35-45) mmHg ABG pO2 (83-108) mmHg ABG HCO3 (21-25) mmol/L ABG Total CO2 (19-24) mmol/L ABG O2 Saturation (94-97) % Creatinine 1.09 H (0.52-1.04) mg/dL Glucose 122 H (74-99) mg/dL POC Glucose (mg/dL) 133 H 139 H (75-99) mg/dL Magnesium (1.6-2.3) mg/dL AST 66 H (14-36) U/L Total Protein 5.7 L (6.3-8.2) g/dL Albumin 3.2 L (3.5-5.0) g/dL Crossmatch 07/24/16 07/24/16 07/24/16 Range/Units 16:18 16:18 16:24 WBC 20.1 H (3.8-10.6) k/uL Hgb 10.8 L (11.4-16.0) gm/dL Hct (34.0-46.0) % MCHC 30.5 L (31.0-37.0) g/dL RDW 15.6 H (11.5-15.5) % Plt Count 147 L (150-450) k/uL Neutrophils # 17.4 H (1.3-7.7) k/uL Lymphocytes # (1.0-4.8) k/uL Monocytes # 1.4 H (0-1.0) k/uL PT 12.9 H (9.0-12.0) sec ABG pCO2 (35-45) mmHg ABG pO2 (83-108) mmHg ABG HCO3 (21-25) mmol/L ABG Total CO2 (19-24) mmol/L ABG O2 Saturation (94-97) % Creatinine (0.52-1.04) mg/dL Glucose (74-99) mg/dL POC Glucose (mg/dL) 117 H (75-99) mg/dL Magnesium (1.6-2.3) mg/dL AST (14-36) U/L Total Protein (6.3-8.2) g/dL Albumin (3.5-5.0) g/dL Crossmatch 07/24/16 07/24/16 07/24/16 Range/Units 17:11 18:39 19:03 WBC (3.8-10.6) k/uL Hgb (11.4-16.0) gm/dL Hct (34.0-46.0) % MCHC (31.0-37.0) g/dL RDW (11.5-15.5) % Plt Count (150-450) k/uL Neutrophils # (1.3-7.7) k/uL Lymphocytes # (1.0-4.8) k/uL Monocytes # (0-1.0) k/uL PT (9.0-12.0) sec ABG pCO2 (35-45) mmHg ABG pO2 112 H (83-108) mmHg ABG HCO3 (21-25) mmol/L ABG Total CO2 26 H (19-24) mmol/L ABG O2 Saturation 99.0 H (94-97) % Creatinine (0.52-1.04) mg/dL Glucose (74-99) mg/dL POC Glucose (mg/dL) 112 H 144 H (75-99) mg/dL Magnesium (1.6-2.3) mg/dL AST (14-36) U/L Total Protein (6.3-8.2) g/dL Albumin (3.5-5.0) g/dL Crossmatch 07/24/16 07/24/16 07/24/16 Range/Units 19:06 19:06 19:06 WBC 18.2 H (3.8-10.6) k/uL Hgb 10.9 L (11.4-16.0) gm/dL Hct (34.0-46.0) % MCHC (31.0-37.0) g/dL RDW 15.6 H (11.5-15.5) % Plt Count 145 L (150-450) k/uL Neutrophils # 16.2 H (1.3-7.7) k/uL Lymphocytes # 0.6 L (1.0-4.8) k/uL Monocytes # 1.1 H (0-1.0) k/uL PT 13.0 H (9.0-12.0) sec ABG pCO2 (35-45) mmHg ABG pO2 (83-108) mmHg ABG HCO3 (21-25) mmol/L ABG Total CO2 (19-24) mmol/L ABG O2 Saturation (94-97) % Creatinine 1.14 H (0.52-1.04) mg/dL Glucose 147 H (74-99) mg/dL POC Glucose (mg/dL) (75-99) mg/dL Magnesium (1.6-2.3) mg/dL AST (14-36) U/L Total Protein (6.3-8.2) g/dL Albumin (3.5-5.0) g/dL Crossmatch 07/24/16 07/24/16 07/24/16 Range/Units 20:27 21:17 22:13 WBC (3.8-10.6) k/uL Hgb (11.4-16.0) gm/dL Hct (34.0-46.0) % MCHC (31.0-37.0) g/dL RDW (11.5-15.5) % Plt Count (150-450) k/uL Neutrophils # (1.3-7.7) k/uL Lymphocytes # (1.0-4.8) k/uL Monocytes # (0-1.0) k/uL PT (9.0-12.0) sec ABG pCO2 (35-45) mmHg ABG pO2 (83-108) mmHg ABG HCO3 (21-25) mmol/L ABG Total CO2 (19-24) mmol/L ABG O2 Saturation (94-97) % Creatinine (0.52-1.04) mg/dL Glucose (74-99) mg/dL POC Glucose (mg/dL) 146 H 137 H 134 H (75-99) mg/dL Magnesium (1.6-2.3) mg/dL AST (14-36) U/L Total Protein (6.3-8.2) g/dL Albumin (3.5-5.0) g/dL Crossmatch 07/24/16 07/24/16 07/25/16 Range/Units 23:16 23:59 00:45 WBC (3.8-10.6) k/uL Hgb (11.4-16.0) gm/dL Hct (34.0-46.0) % MCHC (31.0-37.0) g/dL RDW (11.5-15.5) % Plt Count (150-450) k/uL Neutrophils # (1.3-7.7) k/uL Lymphocytes # (1.0-4.8) k/uL Monocytes # (0-1.0) k/uL PT (9.0-12.0) sec ABG pCO2 (35-45) mmHg ABG pO2 (83-108) mmHg ABG HCO3 (21-25) mmol/L ABG Total CO2 (19-24) mmol/L ABG O2 Saturation (94-97) % Creatinine (0.52-1.04) mg/dL Glucose (74-99) mg/dL POC Glucose (mg/dL) 125 H 149 H 136 H (75-99) mg/dL Magnesium (1.6-2.3) mg/dL AST (14-36) U/L Total Protein (6.3-8.2) g/dL Albumin (3.5-5.0) g/dL Crossmatch 07/25/16 07/25/16 07/25/16 Range/Units 03:24 03:54 04:00 WBC 16.4 H (3.8-10.6) k/uL Hgb 10.4 L (11.4-16.0) gm/dL Hct 32.1 L (34.0-46.0) % MCHC (31.0-37.0) g/dL RDW (11.5-15.5) % Plt Count 138 L (150-450) k/uL Neutrophils # 14.1 H (1.3-7.7) k/uL Lymphocytes # 0.9 L (1.0-4.8) k/uL Monocytes # 1.1 H (0-1.0) k/uL PT (9.0-12.0) sec ABG pCO2 (35-45) mmHg ABG pO2 (83-108) mmHg ABG HCO3 (21-25) mmol/L ABG Total CO2 (19-24) mmol/L ABG O2 Saturation (94-97) % Creatinine (0.52-1.04) mg/dL Glucose (74-99) mg/dL POC Glucose (mg/dL) 118 H 121 H (75-99) mg/dL Magnesium (1.6-2.3) mg/dL AST (14-36) U/L Total Protein (6.3-8.2) g/dL Albumin (3.5-5.0) g/dL Crossmatch 07/25/16 07/25/16 07/25/16 Range/Units 04:00 06:09 07:03 WBC (3.8-10.6) k/uL Hgb (11.4-16.0) gm/dL Hct (34.0-46.0) % MCHC (31.0-37.0) g/dL RDW (11.5-15.5) % Plt Count (150-450) k/uL Neutrophils # (1.3-7.7) k/uL Lymphocytes # (1.0-4.8) k/uL Monocytes # (0-1.0) k/uL PT (9.0-12.0) sec ABG pCO2 (35-45) mmHg ABG pO2 (83-108) mmHg ABG HCO3 (21-25) mmol/L ABG Total CO2 (19-24) mmol/L ABG O2 Saturation (94-97) % Creatinine 1.10 H (0.52-1.04) mg/dL Glucose 116 H (74-99) mg/dL POC Glucose (mg/dL) 117 H 127 H (75-99) mg/dL Magnesium (1.6-2.3) mg/dL AST 58 H (14-36) U/L Total Protein 5.5 L (6.3-8.2) g/dL Albumin 3.2 L (3.5-5.0) g/dL Crossmatch 07/25/16 07/25/16 Range/Units 08:02 09:07 WBC (3.8-10.6) k/uL Hgb (11.4-16.0) gm/dL Hct (34.0-46.0) % MCHC (31.0-37.0) g/dL RDW (11.5-15.5) % Plt Count (150-450) k/uL Neutrophils # (1.3-7.7) k/uL Lymphocytes # (1.0-4.8) k/uL Monocytes # (0-1.0) k/uL PT (9.0-12.0) sec ABG pCO2 (35-45) mmHg ABG pO2 (83-108) mmHg ABG HCO3 (21-25) mmol/L ABG Total CO2 (19-24) mmol/L ABG O2 Saturation (94-97) % Creatinine (0.52-1.04) mg/dL Glucose (74-99) mg/dL POC Glucose (mg/dL) 122 H 148 H (75-99) mg/dL Magnesium (1.6-2.3) mg/dL AST (14-36) U/L Total Protein (6.3-8.2) g/dL Albumin (3.5-5.0) g/dL Crossmatch Assessment and Plan Plan: 1. Severe mitral valve regurgitation: Postoperative day #1 status post mitral valve replacement with excision of left atrial appendage. 2. Diabetes mellitus type 2: Currently on insulin drip for tight blood sugar control 3. Moderate pulmonary hypertension 4. History of TIA 5. History of COPD: Stable 6. History of diastolic congestive heart failure: stable GI prophylaxis Protonix and DVT prophylaxis subcu heparin Vanco for this consultation. We will continue to follow along with you Time with Patient: Greater than 30 (Greater than 50% of the total time spent in counseling and coordination of care.I performed an examination of the patient and discussed their management with the physician Processing Mgr. I have reviewed the Physician Processing Mgr's notes and agree with the documented findings and plan of care)
[2016-07-25 11:07] LABS: Glucose,Whole Blood 138 mg/dL (75-99)
--- NOTE | 2016-07-25 11:25 | PN ---
This is a 56-year-old female who is postop day #1 status post mitral valve replacement for severe mitral regurgitation. She was extubated last night at about 7 at change shift. Currently she is on O2 at 6 L. She has got an IV of LR at 50. She is at ( ) 0.1 mcg/min. She is on an insulin drip at 1 unit/h. Doing real well. Feeling well. She has a history of underlying COPD. She also suffers some CHF, CVA, diabetes, gastroesophageal reflux disease, hypertension and DJD. Also has a history of Hernandez's esophagus. She sees Dr. Stevens in our office. Her FEV1 is 73% of predicted suggesting moderate stage II COPD. Current vital signs are stable. Temperature 98.2, heart rate 103, respiratory rate is 14, blood pressure 111/73 with a mean 85, saturations on 6 L are 94% to 96%. Appears in no acute distress. HEENT examination is grossly unremarkable. Mucous membranes are moist. No oral lesions. Neck is supple. Full range of motion. No adenopathy or thyromegaly. Cardiovascular examination reveals regular rhythm and rate. No murmur noted. S1, S2 normal. No S3, S4. Lungs are clear. Breath sounds equal. Abdomen is soft. Bowel sounds are heard. Extremities are intact. No edema. Skin without rash. Neurologic examination is nonfocal. A chest x-ray done today shows evidence of postsurgical changes and some bibasilar atelectasis. Labs are reviewed. White count 16.4, hemoglobin 10.4, hematocrit 32.1, platelet count 138,000. Sodium, potassium and chloride, and CO2 all normal. BUN and creatinine were 15 and 1.10. The rest of the labs look okay. Microbiology is thus far negative or pending. Orders are reviewed. X-rays reviewed. The patient was started back on her Symbicort. ASSESSMENT: 1. Postoperative day #1 status post mitral valve replacement for severe mitral regurgitation. 2. Postoperative respiratory failure, resolved. 3. History of cerebrovascular accident. 4. Chronic obstructive pulmonary disease. 5. Diastolic congestive heart failure (heart failure with preserved ejection fraction). 6. Hypertension. 7. History of chronic tobacco dependence. 8. Diabetes. 9. Gastroesophageal reflux disease. PLAN: The patient is doing well. Symbicort added back. No additional recommendations are made. Will follow closely. Prognosis is guarded. I did encourage her to do deep breathing, coughing and clearing of secretions. We also recommend incentive spirometry q.1 hour.
[2016-07-25] MEDS: MULTIVITAMINS, THERA 1 EACH TAB PO SCH (12:00)
[2016-07-25] MEDS: CHOLECALCIFEROL 1,000 UNIT TAB PO SCH (12:00)
[2016-07-25] MEDS: CLEVIDIPINE BUTYRATE 25 MG in EMPTY BAG 1 BAG IV SCH (12:00)
[2016-07-25] MEDS: LACTATED RINGERS 1,000 ML IV SCH (12:02)
[2016-07-25 12:09] LABS: Glucose,Whole Blood 116 mg/dL (75-99)
[2016-07-25] MEDS ORDERED: HYDROcodone/APAP 5-325MG 1 EACH TAB PO PRN ×2 (12:33)
[2016-07-25] MEDS ORDERED: BISACODYL 10 MG SUPP RECTAL PRN (12:34)
[2016-07-25] MEDS ORDERED: IPRATROPIUM-ALBUTEROL 3 ML NEB INHALATION PRN (12:34)
[2016-07-25] MEDS ORDERED: MAGNESIUM HYDROXIDE 2,400 MG/10 ML CUP PO PRN (12:34)
[2016-07-25 13:10] LABS: Glucose,Whole Blood 108 mg/dL (75-99)
--- NOTE | 2016-07-25 13:24 | PN ---
Kassy is a 56-year-old lady with severe mitral regurgitation, who underwent mitral valve replacement yesterday. She is doing well this morning. Had been extubated. Remains in sinus rhythm. Stable hemodynamically. On exam, comfortable at rest. Vital signs are stable. There is no jugular venous distention. Chest exam reveals diminished air entry at the bases. Heart exam reveals first and second heart sounds. No gallop. Exam of the extremities did not reveal edema. Peripheral pulses are felt. Labs show a hemoglobin of 10.4. Creatinine is 1.1. BUN is 15. ASSESSMENT: Mitral regurgitation, status post mitral valve replacement. PLAN: The patient is doing well. Pulmonary hypertension has improved.
[2016-07-25 14:11] LABS: Glucose,Whole Blood 127 mg/dL (75-99)
[2016-07-25] MEDS ORDERED: METOPROLOL TARTRATE 12.5 MG TAB PO STA (14:17)
[2016-07-25] MEDS ORDERED: oxyCODONE-APAP 7.5-325MG 1 EACH TAB PO PRN (14:20)
[2016-07-25] MEDS: INSULIN REGULAR 100 UNIT in SODIUM CHLORIDE 0.9% 100 ML IV SCH (14:43)
[2016-07-25 15:10] LABS: Glucose,Whole Blood 134 mg/dL (75-99)
[2016-07-25 16:01] LABS: Glucose,Whole Blood 112 mg/dL (75-99)
[2016-07-25 17:14] LABS: Glucose,Whole Blood 101 mg/dL (75-99)
[2016-07-25 18:03] LABS: Glucose,Whole Blood 178 mg/dL (75-99)
[2016-07-25 19:11] LABS: Glucose,Whole Blood 136 mg/dL (75-99)
[2016-07-25 20:21] LABS: Glucose,Whole Blood 119 mg/dL (75-99)
[2016-07-25] MEDS: SYMBICORT 160-4.5 MCG INHALER INHALATION SCH (20:33)
[2016-07-25] MEDS: SENNOSIDES-DOCUSATE SODIUM 1 EACH TAB PO SCH (20:35)
[2016-07-25] MEDS: METOPROLOL TARTRATE 25 MG TAB PO SCH (20:35)
[2016-07-25] MEDS: VITAMIN A 10,000 UNIT CAPSULE PO SCH (20:36)
[2016-07-25 21:33] LABS: Glucose,Whole Blood 115 mg/dL (75-99)
[2016-07-25 22:53] LABS: Glucose,Whole Blood 115 mg/dL (75-99)
[2016-07-25] MEDS: oxyCODONE-APAP 7.5-325MG 1 EACH TAB PO PRN (23:11)
[2016-07-25 23:59] LABS: Glucose,Whole Blood 133 mg/dL (75-99)
[2016-07-26] MEDS: KETOROLAC 30 MG/ML 1 ML VIAL IVP SCH ×6 (00:02→23:24)
[2016-07-26] MEDS: HEPARIN SODIUM,PORCINE 5,000 UNIT/ML 1 ML VIAL SQ SCH ×4 (00:02→23:25)
[2016-07-26 01:25] LABS: Glucose,Whole Blood 137 mg/dL (75-99)
[2016-07-26 02:25] LABS: Glucose,Whole Blood 121 mg/dL (75-99)
[2016-07-26 03:21] LABS: Glucose,Whole Blood 112 mg/dL (75-99)
[2016-07-26 04:48] LABS: Glucose,Whole Blood 117 mg/dL (75-99)
[2016-07-26 05:38] LABS: Glucose,Whole Blood 106 mg/dL (75-99)
[2016-07-26 05:49] LABS: Ionized Calcium 4.8 mg/dL (4.5-5.3)
[2016-07-26 05:57] LABS: Calcium 8.7 mg/dL (8.4-10.2); INR 1.3 (<1.1); Magnesium 2.1 mg/dL (1.6-2.3); Potassium 4.6 mmol/L (3.5-5.1); Prothrombin Time 12.8 sec (9.0-12.0); Total Bilirubin 0.8 mg/dL (0.2-1.3); Total Protein 5.4 g/dL (6.3-8.2)
[2016-07-26 06:14] LABS: Basophils # (A) 0.1 k/uL (0-0.2); Basophils % (A) 0 %; CH 26.3; CHCM 31.7; Eosinophils % (A) 0 %; HCT 31.5 % (34.0-46.0); HDW 2.86; HGB 10.1 gm/dL (11.4-16.0); Hypochromasia Slight; Luc # (Auto) 0.52; Luc % (Auto) 3; Lymphocytes # (A) 2.2 k/uL (1.0-4.8); Lymphocytes % (A) 13 %; MCH 26.9 pg (25.0-35.0); MCHC 32.2 g/dL (31.0-37.0); MCV 83.4 fL (80.0-100.0); Mean Platelet Volume 9.5; Monocytes # (A) 1.5 k/uL (0-1.0); Monocytes % (A) 9 %; Neutrophils # (A) 12.6 k/uL (1.3-7.7); Neutrophils % (A) 75 %; RBC 3.78 m/uL (3.80-5.40); RDW 15.6 % (11.5-15.5); WBC 16.9 k/uL (3.8-10.6); WBC (Perox) 18.03
--- NOTE | 2016-07-26 07:02 | XR ---
EXAMINATION TYPE: XR chest 1V portable DATE OF EXAM: 07/26/2016 HISTORY: Post Operative Cardiac Surgery. REFERENCE: Previous study dated 07/25/2016. FINDINGS: There has been an ACDF in the lower cervical spine. There has been a midline sternotomy. Th ere is a right pleural drain in place, unchanged in appearance. The heart is enlarged. There is left basilar airspace disease. There is a stable left-sided effusion. IMPRESSION: CONTINUING POSTOPERATIVE CHANGES UNCHANGED FROM PREVIOUS.
[2016-07-26 07:05] LABS: Glucose,Whole Blood 118 mg/dL (75-99)
[2016-07-26] MEDS: IPRATROPIUM-ALBUTEROL 3 ML NEB INHALATION SCH ×4 (07:46→19:16)
[2016-07-26] MEDS: SYMBICORT 160-4.5 MCG INHALER INHALATION SCH ×2 (07:46→19:16)
[2016-07-26 08:18] LABS: Glucose,Whole Blood 114 mg/dL (75-99)
--- NOTE | 2016-07-26 09:04 | P.PN ---
<Renetta Mar - Last Filed: 07/26/16 08:57> Subjective Principal diagnosis: Severe mitral valve regurgitation with evidence of rheumatic features. Moderate pulmonary hypertension. Mild tricuspid valve regurgitation. Moderate left ventricular dysfunction. Mildly dilated ascending aorta. Chronic obstructive pulmonary disease with tobacco abuse. History of cerebral vascular accident and transient ischemic attack. Diabetes mellitus. Fibromyalgia. Gastroesophageal reflux disease with history of Hernandez's esophagitis. Rheumatic mitral valve disorder. POD #2 Chordal preserving mitral valve replacement using a 29 mm porcine bioprosthesis, Mosaic. Exclusion of the left atrial appendage using a 50 mm AtriClip. Intraoperative transesophageal echocardiogram and epi-aortic scanning. The patient is currently sitting up in a recliner in no acute distress. States her pain is well-controlled, doing very well and will be transferred out of the intensive care unit today. Objective - Vital Signs Vital signs: Vital Signs Temp 98.5 F 07/26/16 04:00 Pulse 94 07/26/16 08:00 Resp 14 07/26/16 00:00 BP 116/83 07/25/16 23:00 Pulse Ox 96 07/26/16 08:00 Intake & Output 07/25/16 07/26/16 07/26/16 18:59 06:59 18:59 Intake Total 1316.922 414.999 26 Output Total 716 445 0 Balance 600.922 -30.001 26 Intake: IV 146 72 6 CO/CI 50 Pressure Bag 96 72 6 Intake, IV Titration 520.922 242.999 20 Amount ACETAMINOPHEN IV (For NPO 100 ) 1,000 mg In Empty Bag 1 bag @ 400 mls/hr IVPB Q6HR [facility] Rx#:[id number] Insulin Regular 100 unit 13.571 2.999 In Sodium Chloride 0.9% 100 ml @ Per Protocol IV .Q0M [facility] Rx#:[id number] Lactated Ringers 1,000 ml 300 240 20 @ 20 mls/hr IV .Q24H O[facility] Rx#:[id number] Milrinone-D5w Pmx 20 mg 7.351 In Dextrose/Water 1 100ml .bag @ Per Protocol IV . Q0M [facility] Rx#:[id number] ceFAZolin 2 gm In Sodium 100 Chloride 0.9% 100 ml @ 100 mls/hr IVPB Q8HR [facility] Rx#:[id number] Oral 650 100 Output: Chest Tube Drainage 351 167 0 Chest Tube Mediastinal 270 130 0 Chest Tube Right 81 37 0 Urine 365 278 Other: Voiding Method Indwelling Catheter Indwelling Catheter ABP, PAP, CO, CI - Last Documented Arterial Blood Pressure 100/53 Pulmonary Artery Pressure 43/28 Cardiac Output 6 Cardiac Index 3.2 - Constitutional General appearance: Present: cooperative, no acute distress - Respiratory Details: Lungs sounds diminished bilaterally. Respirations even, nonlabored. Currently on 2 L nasal cannula with oxygen saturation 96%. Able to achieve 500 mL on incentive spirometer. Right pleural chest tube with 20 mL serosanguineous drainage overnight, 130 mL last 24 hours. Mediastinal chest tube 60 mL serosanguineous drainage overnight, 400 mL last 24 hours. No air leaks present. - Cardiovascular Details: S1, S2 present. Regular rate and rhythm, normal sinus rhythm on telemetry. Sternum stable. A/V epicardial pacemaker wires present but grounded. Heart hugger in place with patient demonstrating appropriate use. Teds/SCDs present. - Gastrointestinal Gastrointestinal Comment(s): Abdomen soft, nontender, nondistended. Active bowel sounds 4 quadrants. Positive flatus. Tolerating diet. - Genitourinary Genitourinary Comment(s): Ma discontinued this morning. Due to void. - Musculoskeletal Musculoskeletal: Present: strength equal bilaterally - Psychiatric Psychiatric: Present: A&O x's 3, appropriate affect, intact judgment & insight - Allied health notes Allied health notes reviewed: nursing - Labs CBC & Chem 7: 07/26/16 05:30 07/26/16 05:30 Labs: Abnormal Lab Results - Last 24 Hours (Table) 07/25/16 07/25/16 07/25/16 Range/Units 09:07 09:59 11:04 WBC (3.8-10.6) k/uL RBC (3.80-5.40) m/uL Hgb (11.4-16.0) gm/dL Hct (34.0-46.0) % RDW (11.5-15.5) % Plt Count (150-450) k/uL Neutrophils # (1.3-7.7) k/uL Monocytes # (0-1.0) k/uL PT (9.0-12.0) sec Sodium (137-145) mmol/L BUN (7-17) mg/dL Creatinine (0.52-1.04) mg/dL Glucose (74-99) mg/dL POC Glucose (mg/dL) 148 H 153 H 138 H (75-99) mg/dL AST (14-36) U/L Total Protein (6.3-8.2) g/dL Albumin (3.5-5.0) g/dL 07/25/16 07/25/16 07/25/16 Range/Units 12:07 13:07 14:09 WBC (3.8-10.6) k/uL RBC (3.80-5.40) m/uL Hgb (11.4-16.0) gm/dL Hct (34.0-46.0) % RDW (11.5-15.5) % Plt Count (150-450) k/uL Neutrophils # (1.3-7.7) k/uL Monocytes # (0-1.0) k/uL PT (9.0-12.0) sec Sodium (137-145) mmol/L BUN (7-17) mg/dL Creatinine (0.52-1.04) mg/dL Glucose (74-99) mg/dL POC Glucose (mg/dL) 116 H 108 H 127 H (75-99) mg/dL AST (14-36) U/L Total Protein (6.3-8.2) g/dL Albumin (3.5-5.0) g/dL 07/25/16 07/25/16 07/25/16 Range/Units 15:08 15:58 17:12 WBC (3.8-10.6) k/uL RBC (3.80-5.40) m/uL Hgb (11.4-16.0) gm/dL Hct (34.0-46.0) % RDW (11.5-15.5) % Plt Count (150-450) k/uL Neutrophils # (1.3-7.7) k/uL Monocytes # (0-1.0) k/uL PT (9.0-12.0) sec Sodium (137-145) mmol/L BUN (7-17) mg/dL Creatinine (0.52-1.04) mg/dL Glucose (74-99) mg/dL POC Glucose (mg/dL) 134 H 112 H 101 H (75-99) mg/dL AST (14-36) U/L Total Protein (6.3-8.2) g/dL Albumin (3.5-5.0) g/dL 07/25/16 07/25/16 07/25/16 Range/Units 18:02 19:08 20:13 WBC (3.8-10.6) k/uL RBC (3.80-5.40) m/uL Hgb (11.4-16.0) gm/dL Hct (34.0-46.0) % RDW (11.5-15.5) % Plt Count (150-450) k/uL Neutrophils # (1.3-7.7) k/uL Monocytes # (0-1.0) k/uL PT (9.0-12.0) sec Sodium (137-145) mmol/L BUN (7-17) mg/dL Creatinine (0.52-1.04) mg/dL Glucose (74-99) mg/dL POC Glucose (mg/dL) 178 H 136 H 119 H (75-99) mg/dL AST (14-36) U/L Total Protein (6.3-8.2) g/dL Albumin (3.5-5.0) g/dL 07/25/16 07/25/16 07/25/16 Range/Units 21:32 22:44 23:40 WBC (3.8-10.6) k/uL RBC (3.80-5.40) m/uL Hgb (11.4-16.0) gm/dL Hct (34.0-46.0) % RDW (11.5-15.5) % Plt Count (150-450) k/uL Neutrophils # (1.3-7.7) k/uL Monocytes # (0-1.0) k/uL PT (9.0-12.0) sec Sodium (137-145) mmol/L BUN (7-17) mg/dL Creatinine (0.52-1.04) mg/dL Glucose (74-99) mg/dL POC Glucose (mg/dL) 115 H 115 H 133 H (75-99) mg/dL AST (14-36) U/L Total Protein (6.3-8.2) g/dL Albumin (3.5-5.0) g/dL 07/26/16 07/26/16 07/26/16 Range/Units 01:22 02:24 03:12 WBC (3.8-10.6) k/uL RBC (3.80-5.40) m/uL Hgb (11.4-16.0) gm/dL Hct (34.0-46.0) % RDW (11.5-15.5) % Plt Count (150-450) k/uL Neutrophils # (1.3-7.7) k/uL Monocytes # (0-1.0) k/uL PT (9.0-12.0) sec Sodium (137-145) mmol/L BUN (7-17) mg/dL Creatinine (0.52-1.04) mg/dL Glucose (74-99) mg/dL POC Glucose (mg/dL) 137 H 121 H 112 H (75-99) mg/dL AST (14-36) U/L Total Protein (6.3-8.2) g/dL Albumin (3.5-5.0) g/dL 07/26/16 07/26/16 07/26/16 Range/Units 04:30 05:18 05:30 WBC (3.8-10.6) k/uL RBC (3.80-5.40) m/uL Hgb (11.4-16.0) gm/dL Hct (34.0-46.0) % RDW (11.5-15.5) % Plt Count (150-450) k/uL Neutrophils # (1.3-7.7) k/uL Monocytes # (0-1.0) k/uL PT (9.0-12.0) sec Sodium 132 L (137-145) mmol/L BUN 23 H (7-17) mg/dL Creatinine 1.30 H (0.52-1.04) mg/dL Glucose 104 H (74-99) mg/dL POC Glucose (mg/dL) 117 H 106 H (75-99) mg/dL AST 41 H (14-36) U/L Total Protein 5.4 L (6.3-8.2) g/dL Albumin 3.0 L (3.5-5.0) g/dL 07/26/16 07/26/16 07/26/16 Range/Units 05:30 05:30 06:45 WBC 16.9 H (3.8-10.6) k/uL RBC 3.78 L (3.80-5.40) m/uL Hgb 10.1 L (11.4-16.0) gm/dL Hct 31.5 L (34.0-46.0) % RDW 15.6 H (11.5-15.5) % Plt Count 139 L (150-450) k/uL Neutrophils # 12.6 H (1.3-7.7) k/uL Monocytes # 1.5 H (0-1.0) k/uL PT 12.8 H (9.0-12.0) sec Sodium (137-145) mmol/L BUN (7-17) mg/dL Creatinine (0.52-1.04) mg/dL Glucose (74-99) mg/dL POC Glucose (mg/dL) 118 H (75-99) mg/dL AST (14-36) U/L Total Protein (6.3-8.2) g/dL Albumin (3.5-5.0) g/dL 07/26/16 Range/Units 08:15 WBC (3.8-10.6) k/uL RBC (3.80-5.40) m/uL Hgb (11.4-16.0) gm/dL Hct (34.0-46.0) % RDW (11.5-15.5) % Plt Count (150-450) k/uL Neutrophils # (1.3-7.7) k/uL Monocytes # (0-1.0) k/uL PT (9.0-12.0) sec Sodium (137-145) mmol/L BUN (7-17) mg/dL Creatinine (0.52-1.04) mg/dL Glucose (74-99) mg/dL POC Glucose (mg/dL) 114 H (75-99) mg/dL AST (14-36) U/L Total Protein (6.3-8.2) g/dL Albumin (3.5-5.0) g/dL - Imaging and Cardiology Chest x-ray: image reviewed Assessment and Plan (1) Moderate to severe pulmonary hypertension Status: Acute (2) Mild tricuspid regurgitation Status: Acute (3) Moderate left ventricular systolic dysfunction Status: Acute (4) Fibromyalgia Status: Acute (5) Gastroesophageal reflux disease Status: Acute (6) History of CVA (cerebrovascular accident) Status: Acute (7) S/P gastric bypass Status: Acute (8) Severe mitral regurgitation Status: Acute (9) COPD (chronic obstructive pulmonary disease) Status: Chronic (10) Tobacco abuse, in remission Status: Chronic (11) Type 2 diabetes, controlled, with neuropathy Status: Chronic Plan: 1. Continue aspirin, Lipitor, Plavix, heparin subcu, beta daphne. 2. Will discontinue mediastinal chest tube today. 3. Wean O2 as tolerated. Encourage incentive spirometry use. 4. Increase activity, ambulate in hallway. Physical therapy to follow. 5. GI/DVT prophylaxis. 6. Monitor daily labs, x-rays. 7. Insulin drip/diabetic management per internal medicine service. 8. Will transfer out of the ICU this afternoon. Time with Patient: Greater than 30 <Yovany Small - Last Filed: 07/26/16 16:35> Objective - Vital Signs Vital signs: Vital Signs Temp 98.1 F 07/26/16 16:00 Pulse 94 07/26/16 16:00 Resp 19 07/26/16 16:00 BP 89/58 07/26/16 16:00 Pulse Ox 96 07/26/16 16:00 Intake & Output 07/25/16 07/26/16 07/26/16 18:59 06:59 18:59 Intake Total 1316.922 414.999 276 Output Total 716 445 10 Balance 600.922 -30.001 266 Intake: IV 146 72 36 CO/CI 50 Pressure Bag 96 72 36 Intake, IV Titration 520.922 242.999 120 Amount ACETAMINOPHEN IV (For NPO 100 ) 1,000 mg In Empty Bag 1 bag @ 400 mls/hr IVPB Q6HR [facility] Rx#:[id number] Insulin Regular 100 unit 13.571 2.999 In Sodium Chloride 0.9% 100 ml @ Per Protocol IV .Q0M [facility] Rx#:[id number] Lactated Ringers 1,000 ml 300 240 120 @ 20 mls/hr IV .Q24H [facility] Rx#:[id number] Milrinone-D5w Pmx 20 mg 7.351 In Dextrose/Water 1 100ml .bag @ Per Protocol IV . Q0M [facility] Rx#:[id number] ceFAZolin 2 gm In Sodium 100 Chloride 0.9% 100 ml @ 100 mls/hr IVPB Q8HR [facility] Rx#:[id number] Oral 650 100 120 Output: Chest Tube Drainage 351 167 10 Chest Tube Mediastinal 270 130 0 Chest Tube Right 81 37 10 Urine 365 278 Other: Voiding Method Indwelling Catheter Indwelling Catheter Indwelling Catheter # Voids 1 ABP, PAP, CO, CI - Last Documented Arterial Blood Pressure 124/69 Pulmonary Artery Pressure 43/28 Cardiac Output 6 Cardiac Index 3.2 - Labs CBC & Chem 7: 07/26/16 05:30 07/26/16 05:30 Labs: Abnormal Lab Results - Last 24 Hours (Table) 07/25/16 07/25/16 07/25/16 Range/Units 17:12 18:02 19:08 WBC (3.8-10.6) k/uL RBC (3.80-5.40) m/uL Hgb (11.4-16.0) gm/dL Hct (34.0-46.0) % RDW (11.5-15.5) % Plt Count (150-450) k/uL Neutrophils # (1.3-7.7) k/uL Monocytes # (0-1.0) k/uL PT (9.0-12.0) sec Sodium (137-145) mmol/L BUN (7-17) mg/dL Creatinine (0.52-1.04) mg/dL Glucose (74-99) mg/dL POC Glucose (mg/dL) 101 H 178 H 136 H (75-99) mg/dL AST (14-36) U/L Total Protein (6.3-8.2) g/dL Albumin (3.5-5.0) g/dL 07/25/16 07/25/16 07/25/16 Range/Units 20:13 21:32 22:44 WBC (3.8-10.6) k/uL RBC (3.80-5.40) m/uL Hgb (11.4-16.0) gm/dL Hct (34.0-46.0) % RDW (11.5-15.5) % Plt Count (150-450) k/uL Neutrophils # (1.3-7.7) k/uL Monocytes # (0-1.0) k/uL PT (9.0-12.0) sec Sodium (137-145) mmol/L BUN (7-17) mg/dL Creatinine (0.52-1.04) mg/dL Glucose (74-99) mg/dL POC Glucose (mg/dL) 119 H 115 H 115 H (75-99) mg/dL AST (14-36) U/L Total Protein (6.3-8.2) g/dL Albumin (3.5-5.0) g/dL 07/25/16 07/26/16 07/26/16 Range/Units 23:40 01:22 02:24 WBC (3.8-10.6) k/uL RBC (3.80-5.40) m/uL Hgb (11.4-16.0) gm/dL Hct (34.0-46.0) % RDW (11.5-15.5) % Plt Count (150-450) k/uL Neutrophils # (1.3-7.7) k/uL Monocytes # (0-1.0) k/uL PT (9.0-12.0) sec Sodium (137-145) mmol/L BUN (7-17) mg/dL Creatinine (0.52-1.04) mg/dL Glucose (74-99) mg/dL POC Glucose (mg/dL) 133 H 137 H 121 H (75-99) mg/dL AST (14-36) U/L Total Protein (6.3-8.2) g/dL Albumin (3.5-5.0) g/dL 07/26/16 07/26/16 07/26/16 Range/Units 03:12 04:30 05:18 WBC (3.8-10.6) k/uL RBC (3.80-5.40) m/uL Hgb (11.4-16.0) gm/dL Hct (34.0-46.0) % RDW (11.5-15.5) % Plt Count (150-450) k/uL Neutrophils # (1.3-7.7) k/uL Monocytes # (0-1.0) k/uL PT (9.0-12.0) sec Sodium (137-145) mmol/L BUN (7-17) mg/dL Creatinine (0.52-1.04) mg/dL Glucose (74-99) mg/dL POC Glucose (mg/dL) 112 H 117 H 106 H (75-99) mg/dL AST (14-36) U/L Total Protein (6.3-8.2) g/dL Albumin (3.5-5.0) g/dL 07/26/16 07/26/16 07/26/16 Range/Units 05:30 05:30 05:30 WBC 16.9 H (3.8-10.6) k/uL RBC 3.78 L (3.80-5.40) m/uL Hgb 10.1 L (11.4-16.0) gm/dL Hct 31.5 L (34.0-46.0) % RDW 15.6 H (11.5-15.5) % Plt Count 139 L (150-450) k/uL Neutrophils # 12.6 H (1.3-7.7) k/uL Monocytes # 1.5 H (0-1.0) k/uL PT 12.8 H (9.0-12.0) sec Sodium 132 L (137-145) mmol/L BUN 23 H (7-17) mg/dL Creatinine 1.30 H (0.52-1.04) mg/dL Glucose 104 H (74-99) mg/dL POC Glucose (mg/dL) (75-99) mg/dL AST 41 H (14-36) U/L Total Protein 5.4 L (6.3-8.2) g/dL Albumin 3.0 L (3.5-5.0) g/dL 07/26/16 07/26/16 07/26/16 Range/Units 06:45 08:15 12:00 WBC (3.8-10.6) k/uL RBC (3.80-5.40) m/uL Hgb (11.4-16.0) gm/dL Hct (34.0-46.0) % RDW (11.5-15.5) % Plt Count (150-450) k/uL Neutrophils # (1.3-7.7) k/uL Monocytes # (0-1.0) k/uL PT (9.0-12.0) sec Sodium (137-145) mmol/L BUN (7-17) mg/dL Creatinine (0.52-1.04) mg/dL Glucose (74-99) mg/dL POC Glucose (mg/dL) 118 H 114 H 107 H (75-99) mg/dL AST (14-36) U/L Total Protein (6.3-8.2) g/dL Albumin (3.5-5.0) g/dL Assessment and Plan Plan: The patient was seen and examined. Agree with the above assessment and plan. Overall she looks good. She has no significant complaints. Her mediastinal chest tube will be discontinued and we will keep her pleural chest tube for now. She is ambulating without difficulty. Her creatinine did bump to 1.3 today. We will hold off on Lasix for now. She is stable for transfer to [facility].
[2016-07-26] MEDS: oxyCODONE-APAP 7.5-325MG 1 EACH TAB PO PRN ×3 (09:33→22:15)
[2016-07-26] MEDS: ATORVASTATIN 40 MG TAB PO SCH (09:34)
[2016-07-26] MEDS: CLOPIDOGREL 75 MG TAB PO SCH (09:34)
[2016-07-26] MEDS: PANTOPRAZOLE 40 MG TABLET PO SCH (09:34)
[2016-07-26] MEDS: ASPIRIN 325 MG TAB PO SCH (09:34)
[2016-07-26] MEDS: VENLAFAXINE HCL ER 150 MG CAP PO SCH ×2 (09:35→20:46)
[2016-07-26] MEDS: METOPROLOL TARTRATE 25 MG TAB PO SCH ×2 (09:35→20:45)
--- NOTE | 2016-07-26 11:07 | P.PN ---
Subjective Principal diagnosis: Severe mitral regurgitation This is a very pleasant 56-year-old female patient who follows with Dr. Hager as her primary care physician. She has a history of congestive heart failure, chronic obstructive pulmonary disease, CVA/TIA, diabetes lightest, gastroesophageal reflux disease, hypertension, osteoarthritis. She also has a history of Hernandez's esophagus that was surgically repaired. He follows in our office with Dr. Stevens for chronic obstructive pulmonary disease. Her FEV1 value of 73% of predicted. She presented here back in 06/10/2016 with shortness of breath cough and congestion. She was found to have severe mitral regurgitation and is now status post mitral valve replacement is seen immediately postoperatively in the intensive care unit and she is currently intubated and on the mechanical ventilator at settings of assist control of 12 tidal volume 400 FiO2 100% and a PEEP of 5. Follow-up blood gases reveal a pO2 of 205, pCO2 47, pH 7.35. She is currently sedated on propofol 50 mcg/kg/m, milrinone at 0.25 mcg/kg/m, insulin drip at 2 units per hour, nitroglycerin drip at 50 mcg/m. Her current cardiac output is 5.5, cardiac index 2.9, pulmonary arterial pressure 60/29 with a mean of 48, CVP of 13. She is currently in normal sinus rhythm. The patient is seen again today 07/26/2016 in follow-up in the intensive care unit. She is resting quite comfortably in bed. She had been up in the chair at the bedside for 5 hours this morning. She is doing well thus far. Her mediastinal chest tube was removed. Cordis and arterial lines are out. Pacer is grounded. She does continue with a left pleural chest tube in place. She is maintaining good O2 saturations in the 90s on 2 L/m per nasal cannula. She is working well with the incentive spirometer, currently at 750 MLS. Her pain is well controlled. She's been hemodynamically stable. Objective - Vital Signs Vital signs: Vital Signs Temp 98.5 F 07/26/16 04:00 Pulse 94 07/26/16 08:00 Resp 14 07/26/16 00:00 BP 116/83 07/25/16 23:00 Pulse Ox 96 07/26/16 08:00 Intake & Output 07/25/16 07/26/16 07/26/16 18:59 06:59 18:59 Intake Total 1316.922 414.999 26 Output Total 716 445 0 Balance 600.922 -30.001 26 Intake: IV 146 72 6 CO/CI 50 Pressure Bag 96 72 6 Intake, IV Titration 520.922 242.999 20 Amount ACETAMINOPHEN IV (For NPO 100 ) 1,000 mg In Empty Bag 1 bag @ 400 mls/hr IVPB Q6HR [facility] Rx#:[id number] Insulin Regular 100 unit 13.571 2.999 In Sodium Chloride 0.9% 100 ml @ Per Protocol IV .Q0M [facility] Rx#:[id number] Lactated Ringers 1,000 ml 300 240 20 @ 20 mls/hr IV .Q24H [facility] Rx#:[id number] Milrinone-D5w Pmx 20 mg 7.351 In Dextrose/Water 1 100ml .bag @ Per Protocol IV . Q0M [facility] Rx#:[id number] ceFAZolin 2 gm In Sodium 100 Chloride 0.9% 100 ml @ 100 mls/hr IVPB Q8HR O[facility] Rx#:[id number] Oral 650 100 Output: Chest Tube Drainage 351 167 0 Chest Tube Mediastinal 270 130 0 Chest Tube Right 81 37 0 Urine 365 278 Other: Voiding Method Indwelling Catheter Indwelling Catheter ABP, PAP, CO, CI - Last Documented Arterial Blood Pressure 100/53 Pulmonary Artery Pressure 43/28 Cardiac Output 6 Cardiac Index 3.2 - Exam GENERAL EXAM: Alert, comfortable in no apparent distress. HEAD: Normocephalic. EYES: Normal reaction of pupils, equal size. NOSE: Clear with pink turbinates. THROAT: No erythema or exudates. NECK: No masses, no JVD. CHEST: Sternal dressing is dry and intact. Left chest tube in place. LUNGS: Equal air entry with crackles in the posterior bases. Diminished.. CVS: S1 and S2 normal with no audible murmurs, regular rhythm. ABDOMEN: No hepatosplenomegaly, normal bowel sounds, no guarding or rigidity. SPINE: No scoliosis or deformity SKIN: No rashes CENTRAL NERVOUS SYSTEM: No focal deficits, tone is normal in all 4 extremities. Extremities: There is trace peripheral edema. No clubbing, no cyanosis. Peripheral pulses are intact. - Labs CBC & Chem 7: 07/26/16 05:30 06/02/17 05:30 Labs: Abnormal Lab Results - Last 24 Hours (Table) 07/25/16 07/25/16 07/25/16 Range/Units 11:04 12:07 13:07 WBC (3.8-10.6) k/uL RBC (3.80-5.40) m/uL Hgb (11.4-16.0) gm/dL Hct (34.0-46.0) % RDW (11.5-15.5) % Plt Count (150-450) k/uL Neutrophils # (1.3-7.7) k/uL Monocytes # (0-1.0) k/uL PT (9.0-12.0) sec Sodium (137-145) mmol/L BUN (7-17) mg/dL Creatinine (0.52-1.04) mg/dL Glucose (74-99) mg/dL POC Glucose (mg/dL) 138 H 116 H 108 H (75-99) mg/dL AST (14-36) U/L Total Protein (6.3-8.2) g/dL Albumin (3.5-5.0) g/dL 07/25/16 07/25/16 07/25/16 Range/Units 14:09 15:08 15:58 WBC (3.8-10.6) k/uL RBC (3.80-5.40) m/uL Hgb (11.4-16.0) gm/dL Hct (34.0-46.0) % RDW (11.5-15.5) % Plt Count (150-450) k/uL Neutrophils # (1.3-7.7) k/uL Monocytes # (0-1.0) k/uL PT (9.0-12.0) sec Sodium (137-145) mmol/L BUN (7-17) mg/dL Creatinine (0.52-1.04) mg/dL Glucose (74-99) mg/dL POC Glucose (mg/dL) 127 H 134 H 112 H (75-99) mg/dL AST (14-36) U/L Total Protein (6.3-8.2) g/dL Albumin (3.5-5.0) g/dL 07/25/16 07/25/16 07/25/16 Range/Units 17:12 18:02 19:08 WBC (3.8-10.6) k/uL RBC (3.80-5.40) m/uL Hgb (11.4-16.0) gm/dL Hct (34.0-46.0) % RDW (11.5-15.5) % Plt Count (150-450) k/uL Neutrophils # (1.3-7.7) k/uL Monocytes # (0-1.0) k/uL PT (9.0-12.0) sec Sodium (137-145) mmol/L BUN (7-17) mg/dL Creatinine (0.52-1.04) mg/dL Glucose (74-99) mg/dL POC Glucose (mg/dL) 101 H 178 H 136 H (75-99) mg/dL AST (14-36) U/L Total Protein (6.3-8.2) g/dL Albumin (3.5-5.0) g/dL 07/25/16 07/25/16 07/25/16 Range/Units 20:13 21:32 22:44 WBC (3.8-10.6) k/uL RBC (3.80-5.40) m/uL Hgb (11.4-16.0) gm/dL Hct (34.0-46.0) % RDW (11.5-15.5) % Plt Count (150-450) k/uL Neutrophils # (1.3-7.7) k/uL Monocytes # (0-1.0) k/uL PT (9.0-12.0) sec Sodium (137-145) mmol/L BUN (7-17) mg/dL Creatinine (0.52-1.04) mg/dL Glucose (74-99) mg/dL POC Glucose (mg/dL) 119 H 115 H 115 H (75-99) mg/dL AST (14-36) U/L Total Protein (6.3-8.2) g/dL Albumin (3.5-5.0) g/dL 07/25/16 07/26/16 07/26/16 Range/Units 23:40 01:22 02:24 WBC (3.8-10.6) k/uL RBC (3.80-5.40) m/uL Hgb (11.4-16.0) gm/dL Hct (34.0-46.0) % RDW (11.5-15.5) % Plt Count (150-450) k/uL Neutrophils # (1.3-7.7) k/uL Monocytes # (0-1.0) k/uL PT (9.0-12.0) sec Sodium (137-145) mmol/L BUN (7-17) mg/dL Creatinine (0.52-1.04) mg/dL Glucose (74-99) mg/dL POC Glucose (mg/dL) 133 H 137 H 121 H (75-99) mg/dL AST (14-36) U/L Total Protein (6.3-8.2) g/dL Albumin (3.5-5.0) g/dL 07/26/16 07/26/16 07/26/16 Range/Units 03:12 04:30 05:18 WBC (3.8-10.6) k/uL RBC (3.80-5.40) m/uL Hgb (11.4-16.0) gm/dL Hct (34.0-46.0) % RDW (11.5-15.5) % Plt Count (150-450) k/uL Neutrophils # (1.3-7.7) k/uL Monocytes # (0-1.0) k/uL PT (9.0-12.0) sec Sodium (137-145) mmol/L BUN (7-17) mg/dL Creatinine (0.52-1.04) mg/dL Glucose (74-99) mg/dL POC Glucose (mg/dL) 112 H 117 H 106 H (75-99) mg/dL AST (14-36) U/L Total Protein (6.3-8.2) g/dL Albumin (3.5-5.0) g/dL 07/26/16 07/26/16 07/26/16 Range/Units 05:30 05:30 05:30 WBC 16.9 H (3.8-10.6) k/uL RBC 3.78 L (3.80-5.40) m/uL Hgb 10.1 L (11.4-16.0) gm/dL Hct 31.5 L (34.0-46.0) % RDW 15.6 H (11.5-15.5) % Plt Count 139 L (150-450) k/uL Neutrophils # 12.6 H (1.3-7.7) k/uL Monocytes # 1.5 H (0-1.0) k/uL PT 12.8 H (9.0-12.0) sec Sodium 132 L (137-145) mmol/L BUN 23 H (7-17) mg/dL Creatinine 1.30 H (0.52-1.04) mg/dL Glucose 104 H (74-99) mg/dL POC Glucose (mg/dL) (75-99) mg/dL AST 41 H (14-36) U/L Total Protein 5.4 L (6.3-8.2) g/dL Albumin 3.0 L (3.5-5.0) g/dL /04/12 05/04/12 Range/Units 06:45 08:15 WBC (3.8-10.6) k/uL RBC (3.80-5.40) m/uL Hgb (11.4-16.0) gm/dL Hct (34.0-46.0) % RDW (11.5-15.5) % Plt Count (150-450) k/uL Neutrophils # (1.3-7.7) k/uL Monocytes # (0-1.0) k/uL PT (9.0-12.0) sec Sodium (137-145) mmol/L BUN (7-17) mg/dL Creatinine (0.52-1.04) mg/dL Glucose (74-99) mg/dL POC Glucose (mg/dL) 118 H 114 H (75-99) mg/dL AST (14-36) U/L Total Protein (6.3-8.2) g/dL Albumin (3.5-5.0) g/dL Assessment and Plan Plan: Pression: #1 Severe mitral regurgitation status post valve replacement. Operative day #0. #2 Ventilator management secondary to expected outcome post thoracotomy. #3 History of CVA. #3 Chronic obstructive pulmonary disease. #4 Congestive heart failure, diastolic. #5 Hypertension. #6 History of chronic tobacco dependence. #7 Diabetes mellitus, type II. #8 Gastroesophageal reflux disease. #9 History of gastric bypass. Plan: The patient was seen and evaluated by Dr. Orozco. Her chest x-ray ABGs and labs were reviewed. She is currently stable from the pulmonary and critical care standpoint. She could be transferred out of the intensive care unit later today. We will continue to follow make further recommendations based on her clinical status.
--- NOTE | 2016-07-26 11:47 | PN ---
A 56-year-old lady with history of mitral regurgitation, status post mitral valve replacement. She is postop day #2, doing well and is free of symptoms. The chest tubes are going to come out today. She was slightly hypotensive, hence, her beta daphne dose was decreased. On exam, comfortable at rest. Vital signs are stable. There is no jugular venous distention. Chest exam reveals diminished air entry at the bases. Heart exam reveals first and second heart sounds. No gallop. Abdomen is soft. Exam of extremities did not reveal edema. Peripheral pulses are felt. ASSESSMENT: Mitral regurgitation, status post mitral valve replacement. PLAN: The patient is doing well. We will continue to increase her activity.
[2016-07-26 12:01] LABS: Glucose,Whole Blood 107 mg/dL (75-99)
--- NOTE | 2016-07-26 13:15 | P.PN ---
Subjective Status post mitral valve replacement Patient lying in bed comfortably. She had been up earlier sitting in bedside chair. She had one of her chest tubes removed today. She reports that her pain is controlled. Denies any nausea vomiting. She is passing gas. Last bowel movement 3 days ago. Urine output adequate. They're planning to transfer her out of the ICU and to [facility] today Objective - Vital Signs Vital signs: Vital Signs Temp 98.5 F 07/26/16 04:00 Pulse 102 H 07/26/16 12:00 Resp 17 07/26/16 12:00 BP 109/79 07/26/16 12:00 Pulse Ox 97 07/26/16 12:00 Intake & Output 07/25/16 07/26/16 07/26/16 18:59 06:59 18:59 Intake Total 1316.922 414.999 156 Output Total 716 445 10 Balance 600.922 -30.001 146 Intake: IV 146 72 36 CO/CI 50 Pressure Bag 96 72 36 Intake, IV Titration 520.922 242.999 120 Amount ACETAMINOPHEN IV (For NPO 100 ) 1,000 mg In Empty Bag 1 bag @ 400 mls/hr IVPB Q6HR [facility] Rx#:[id number] Insulin Regular 100 unit 13.571 2.999 In Sodium Chloride 0.9% 100 ml @ Per Protocol IV .Q0M [facility] Rx#:[id number] Lactated Ringers 1,000 ml 300 240 120 @ 20 mls/hr IV .Q24H [facility] Rx#:[id number] Milrinone-D5w Pmx 20 mg 7.351 In Dextrose/Water 1 100ml .bag @ Per Protocol IV . Q0M [facility] Rx#:[id number] ceFAZolin 2 gm In Sodium 100 Chloride 0.9% 100 ml @ 100 mls/hr IVPB Q8HR [facility] Rx#:[id number] Oral 650 100 Output: Chest Tube Drainage 351 167 10 Chest Tube Mediastinal 270 130 0 Chest Tube Right 81 37 10 Urine 365 278 Other: Voiding Method Indwelling Catheter Indwelling Catheter Indwelling Catheter # Voids 1 ABP, PAP, CO, CI - Last Documented Arterial Blood Pressure 124/69 Pulmonary Artery Pressure 43/28 Cardiac Output 6 Cardiac Index 3.2 - Exam Head normocephalic Neck supple Lungs clear to auscultation bilaterally no wheezing or crackles Heart regular rate and rhythm S1-S2, no rub or gallop Abdomen is soft nontender nondistended positive bowel sounds no hepatosplenomegaly Extremities no edema Neuro alert and orientated to 3 - Labs CBC & Chem 7: 07/26/16 05:30 07/26/16 05:30 Labs: Abnormal Lab Results - Last 24 Hours (Table) 07/25/16 07/25/16 07/25/16 Range/Units 13:07 14:09 15:08 WBC (3.8-10.6) k/uL RBC (3.80-5.40) m/uL Hgb (11.4-16.0) gm/dL Hct (34.0-46.0) % RDW (11.5-15.5) % Plt Count (150-450) k/uL Neutrophils # (1.3-7.7) k/uL Monocytes # (0-1.0) k/uL PT (9.0-12.0) sec Sodium (137-145) mmol/L BUN (7-17) mg/dL Creatinine (0.52-1.04) mg/dL Glucose (74-99) mg/dL POC Glucose (mg/dL) 108 H 127 H 134 H (75-99) mg/dL AST (14-36) U/L Total Protein (6.3-8.2) g/dL Albumin (3.5-5.0) g/dL 07/25/16 07/25/16 07/25/16 Range/Units 15:58 17:12 18:02 WBC (3.8-10.6) k/uL RBC (3.80-5.40) m/uL Hgb (11.4-16.0) gm/dL Hct (34.0-46.0) % RDW (11.5-15.5) % Plt Count (150-450) k/uL Neutrophils # (1.3-7.7) k/uL Monocytes # (0-1.0) k/uL PT (9.0-12.0) sec Sodium (137-145) mmol/L BUN (7-17) mg/dL Creatinine (0.52-1.04) mg/dL Glucose (74-99) mg/dL POC Glucose (mg/dL) 112 H 101 H 178 H (75-99) mg/dL AST (14-36) U/L Total Protein (6.3-8.2) g/dL Albumin (3.5-5.0) g/dL 07/25/16 07/25/16 07/25/16 Range/Units 19:08 20:13 21:32 WBC (3.8-10.6) k/uL RBC (3.80-5.40) m/uL Hgb (11.4-16.0) gm/dL Hct (34.0-46.0) % RDW (11.5-15.5) % Plt Count (150-450) k/uL Neutrophils # (1.3-7.7) k/uL Monocytes # (0-1.0) k/uL PT (9.0-12.0) sec Sodium (137-145) mmol/L BUN (7-17) mg/dL Creatinine (0.52-1.04) mg/dL Glucose (74-99) mg/dL POC Glucose (mg/dL) 136 H 119 H 115 H (75-99) mg/dL AST (14-36) U/L Total Protein (6.3-8.2) g/dL Albumin (3.5-5.0) g/dL 07/25/16 07/25/16 07/26/16 Range/Units 22:44 23:40 01:22 WBC (3.8-10.6) k/uL RBC (3.80-5.40) m/uL Hgb (11.4-16.0) gm/dL Hct (34.0-46.0) % RDW (11.5-15.5) % Plt Count (150-450) k/uL Neutrophils # (1.3-7.7) k/uL Monocytes # (0-1.0) k/uL PT (9.0-12.0) sec Sodium (137-145) mmol/L BUN (7-17) mg/dL Creatinine (0.52-1.04) mg/dL Glucose (74-99) mg/dL POC Glucose (mg/dL) 115 H 133 H 137 H (75-99) mg/dL AST (14-36) U/L Total Protein (6.3-8.2) g/dL Albumin (3.5-5.0) g/dL 07/26/16 07/26/16 07/26/16 Range/Units 02:24 03:12 04:30 WBC (3.8-10.6) k/uL RBC (3.80-5.40) m/uL Hgb (11.4-16.0) gm/dL Hct (34.0-46.0) % RDW (11.5-15.5) % Plt Count (150-450) k/uL Neutrophils # (1.3-7.7) k/uL Monocytes # (0-1.0) k/uL PT (9.0-12.0) sec Sodium (137-145) mmol/L BUN (7-17) mg/dL Creatinine (0.52-1.04) mg/dL Glucose (74-99) mg/dL POC Glucose (mg/dL) 121 H 112 H 117 H (75-99) mg/dL AST (14-36) U/L Total Protein (6.3-8.2) g/dL Albumin (3.5-5.0) g/dL 07/26/16 07/26/16 07/26/16 Range/Units 05:18 05:30 05:30 WBC 16.9 H (3.8-10.6) k/uL RBC 3.78 L (3.80-5.40) m/uL Hgb 10.1 L (11.4-16.0) gm/dL Hct 31.5 L (34.0-46.0) % RDW 15.6 H (11.5-15.5) % Plt Count 139 L (150-450) k/uL Neutrophils # 12.6 H (1.3-7.7) k/uL Monocytes # 1.5 H (0-1.0) k/uL PT (9.0-12.0) sec Sodium 132 L (137-145) mmol/L BUN 23 H (7-17) mg/dL Creatinine 1.30 H (0.52-1.04) mg/dL Glucose 104 H (74-99) mg/dL POC Glucose (mg/dL) 106 H (75-99) mg/dL AST 41 H (14-36) U/L Total Protein 5.4 L (6.3-8.2) g/dL Albumin 3.0 L (3.5-5.0) g/dL 07/26/16 07/26/16 07/26/16 Range/Units 05:30 06:45 08:15 WBC (3.8-10.6) k/uL RBC (3.80-5.40) m/uL Hgb (11.4-16.0) gm/dL Hct (34.0-46.0) % RDW (11.5-15.5) % Plt Count (150-450) k/uL Neutrophils # (1.3-7.7) k/uL Monocytes # (0-1.0) k/uL PT 12.8 H (9.0-12.0) sec Sodium (137-145) mmol/L BUN (7-17) mg/dL Creatinine (0.52-1.04) mg/dL Glucose (74-99) mg/dL POC Glucose (mg/dL) 118 H 114 H (75-99) mg/dL AST (14-36) U/L Total Protein (6.3-8.2) g/dL Albumin (3.5-5.0) g/dL 07/26/16 Range/Units 12:00 WBC (3.8-10.6) k/uL RBC (3.80-5.40) m/uL Hgb (11.4-16.0) gm/dL Hct (34.0-46.0) % RDW (11.5-15.5) % Plt Count (150-450) k/uL Neutrophils # (1.3-7.7) k/uL Monocytes # (0-1.0) k/uL PT (9.0-12.0) sec Sodium (137-145) mmol/L BUN (7-17) mg/dL Creatinine (0.52-1.04) mg/dL Glucose (74-99) mg/dL POC Glucose (mg/dL) 107 H (75-99) mg/dL AST (14-36) U/L Total Protein (6.3-8.2) g/dL Albumin (3.5-5.0) g/dL Assessment and Plan Plan: 1. Severe mitral valve regurgitation: Postoperative day #2 status post mitral valve replacement with excision of left atrial appendage. 2. Diabetes mellitus type 2: Diet controlled. Insulin drip has been discontinued. Add Accu-Cheks every before meals and at bedtime 3. Moderate pulmonary hypertension 4. History of TIA 5. History of COPD: Stable 6. History of diastolic congestive heart failure: stable 7. Acute kidney injury: Likely related to diuretics. She did receive 1 dose of Lasix yesterday. Repeat labs tomorrow. 8. Constipation: Continue Senokot and milk of magnesia as needed GI prophylaxis Protonix and DVT prophylaxis subcu heparin Patient is medically stable to be transferred out of the ICU to [facility]
[2016-07-26 14:14] LABS: Hemoglobin A1C 5.5 % (4.2-6.1)
[2016-07-26] MEDS: CHOLECALCIFEROL 1,000 UNIT TAB PO SCH (15:57)
[2016-07-26] MEDS: MULTIVITAMINS, THERA 1 EACH TAB PO SCH (15:57)
[2016-07-26 17:20] LABS: Glucose,Whole Blood 129 mg/dL (75-99)
[2016-07-26] MEDS: INSULIN LISPRO (humaLOG) 300 UNIT/3 ML VIAL SQ SCH ×2 (17:26→20:53)
[2016-07-26 20:44] LABS: Glucose,Whole Blood 113 mg/dL (75-99)
[2016-07-26] MEDS: SENNOSIDES-DOCUSATE SODIUM 1 EACH TAB PO SCH (20:46)
[2016-07-26] MEDS: VITAMIN A 10,000 UNIT CAPSULE PO SCH (20:46)
[2016-07-26] MEDS: LACTATED RINGERS 1,000 ML IV SCH (23:46)
[2016-07-27 02:00] LABS: Glucose,Whole Blood 110 mg/dL (75-99)
[2016-07-27] MEDS: oxyCODONE-APAP 7.5-325MG 1 EACH TAB PO PRN ×4 (04:44→18:29)
[2016-07-27] MEDS: PANTOPRAZOLE 40 MG TABLET PO SCH (06:52)
[2016-07-27] MEDS: INSULIN LISPRO (humaLOG) 300 UNIT/3 ML VIAL SQ SCH ×4 (06:53→22:06)
[2016-07-27 06:55] LABS: Glucose,Whole Blood 127 mg/dL (75-99)
[2016-07-27 07:08] LABS: Basophils % (A) 0 %; CH 26.3; CHCM 31.2; Eosinophils % (A) 0 %; HDW 2.77; HGB 9.8 gm/dL (11.4-16.0); Hypochromasia Slight; Luc # (Auto) 0.25; Luc % (Auto) 2; Lymphocytes # (A) 1.2 k/uL (1.0-4.8); Lymphocytes % (A) 11 %; MCH 26.7 pg (25.0-35.0); MCHC 31.5 g/dL (31.0-37.0); MCV 84.8 fL (80.0-100.0); Mean Platelet Volume 9.1; Monocytes # (A) 0.6 k/uL (0-1.0); Monocytes % (A) 6 %; Neutrophils # (A) 8.9 k/uL (1.3-7.7); Neutrophils % (A) 81 %; RBC 3.65 m/uL (3.80-5.40); RDW 15.7 % (11.5-15.5)
[2016-07-27 07:28] LABS: ALT 15 U/L (9-52); AST 27 U/L (14-36); Alkaline Phosphatase 102 U/L (38-126); Anion Gap 8 mmol/L; Blood Urea Nitrogen 25 mg/dL (7-17); Calcium 8.2 mg/dL (8.4-10.2); Carbon Dioxide 24 mmol/L (22-30); Chloride 98 mmol/L (98-107); Glucose 138 mg/dL (74-99); Non-African American GFR(MDRD) 60 (>60 ml/min/1.73 sqM); Potassium 4.1 mmol/L (3.5-5.1); Sodium 130 mmol/L (137-145); Total Bilirubin 0.8 mg/dL (0.2-1.3); Total Protein 5.8 g/dL (6.3-8.2)
--- NOTE | 2016-07-27 08:06 | XR ---
EXAMINATION TYPE: XR chest 1V portable DATE OF EXAM: 07/27/2016 HISTORY: Shortness of breath. COMPARISON: July 26, 2016 TECHNIQUE: Single view of the chest is submitted. FINDINGS: Right basilar chest tube is unchanged in position. No evidence for pneumothorax. Sternotomy wires med iastinal clips are in place. Demonstrated are scattered senescent parenchymal change. There is left perihilar linear atelectasis. The heart is large Hilar and mediastinal structures are within normal limits. Degenerative changes are seen of the dorsal spine. IMPRESSION: 1. Stable chest.
[2016-07-27] MEDS: ASPIRIN 325 MG TAB PO SCH (09:04)
[2016-07-27] MEDS: HEPARIN SODIUM,PORCINE 5,000 UNIT/ML 1 ML VIAL SQ SCH ×2 (09:04→17:23)
[2016-07-27] MEDS: CLOPIDOGREL 75 MG TAB PO SCH (09:04)
[2016-07-27] MEDS: ATORVASTATIN 40 MG TAB PO SCH (09:04)
[2016-07-27] MEDS: VENLAFAXINE HCL ER 150 MG CAP PO SCH ×2 (09:05→22:04)
[2016-07-27] MEDS: METOPROLOL TARTRATE 25 MG TAB PO SCH ×2 (09:05→22:04)
[2016-07-27] MEDS: CHOLECALCIFEROL 1,000 UNIT TAB PO SCH (09:08)
[2016-07-27] MEDS: IPRATROPIUM-ALBUTEROL 3 ML NEB INHALATION SCH ×4 (09:53→20:30)
[2016-07-27] MEDS: SYMBICORT 160-4.5 MCG INHALER INHALATION SCH ×2 (09:53→20:30)
--- NOTE | 2016-07-27 10:35 | P.PN ---
<Scott Banks April - Last Filed: 07/27/16 10:32> Progress Note - Text CV Surgery Nursing Principal diagnosis: Severe mitral valve regurgitation with evidence of rheumatic features. Moderate pulmonary hypertension. Mild tricuspid valve regurgitation. Moderate left ventricular dysfunction. Mildly dilated ascending aorta. Chronic obstructive pulmonary disease with tobacco abuse. History of cerebral vascular accident and transient ischemic attack. Diabetes mellitus. Fibromyalgia. Gastroesophageal reflux disease with history of Hernandez's esophagitis. Rheumatic mitral valve disorder. POD #3 Chordal preserving mitral valve replacement using a 29 mm porcine bioprosthesis, Mosaic. Exclusion of the left atrial appendage using a 50 mm AtriClip. Intraoperative transesophageal echocardiogram and epi-aortic scanning. Patient awake and alert, no distress noted, no specific complaints. Sitting she is sitting up to bedside chair eating breakfast. Vital Signs: Afebrile Vital Signs - 24 hr 07/26/16 07/26/16 07/26/16 09:00 10:00 11:00 Temperature Pulse Rate 95 101 H 99 Pulse Rate [ Client Relationship Consultant ] Respiratory 18 18 19 Rate Blood Pressure 98/72 Blood Pressure [Left Arm] Blood Pressure [Left Radial Artery] O2 Sat by Pulse 97 98 97 Oximetry 07/26/16 07/26/16 07/26/16 11:41 11:51 12:00 Temperature Pulse Rate 101 H 74 102 H Pulse Rate [ Client Relationship Consultant ] Respiratory 17 Rate Blood Pressure 109/79 Blood Pressure [Left Arm] Blood Pressure [Left Radial Artery] O2 Sat by Pulse 97 Oximetry 07/26/16 07/26/16 07/26/16 13:00 14:00 15:00 Temperature Pulse Rate 105 H 80 105 H Pulse Rate [ Client Relationship Consultant ] Respiratory 15 18 20 Rate Blood Pressure 84/70 86/64 85/57 Blood Pressure [Left Arm] Blood Pressure [Left Radial Artery] O2 Sat by Pulse Oximetry 07/26/16 07/26/16 07/26/16 16:00 16:34 16:46 Temperature 98.1 F Pulse Rate 94 78 72 Pulse Rate [ Client Relationship Consultant ] Respiratory 19 Rate Blood Pressure 89/58 Blood Pressure [Left Arm] Blood Pressure [Left Radial Artery] O2 Sat by Pulse 96 Oximetry 07/26/16 07/26/16 07/26/16 16:50 19:16 19:29 Temperature Pulse Rate 70 72 Pulse Rate [ 105 H Client Relationship Consultant ] Respiratory 16 Rate Blood Pressure Blood Pressure [Left Arm] Blood Pressure 101/67 [Left Radial Artery] O2 Sat by Pulse 95 Oximetry 07/26/16 07/27/16 07/27/16 20:00 00:00 04:00 Temperature 98.1 F 98.2 F Pulse Rate Pulse Rate [ 89 75 95 Client Relationship Consultant ] Respiratory 16 18 18 Rate Blood Pressure Blood Pressure 103/70 112/70 [Left Arm] Blood Pressure 108/65 [Left Radial Artery] O2 Sat by Pulse 93 L 92 L 97 Oximetry Labs: Short CBC 07/27/16 Range/Units 06:22 WBC 11.0 H (3.8-10.6) k/uL Hgb 9.8 L (11.4-16.0) gm/dL Hct 31.0 L (34.0-46.0) % Plt Count 134 L (150-450) k/uL Neutrophils # 8.9 H (1.3-7.7) k/uL BMP 07/27/16 06:22 Sodium 130 L Potassium 4.1 Chloride 98 Carbon Dioxide 24 BUN 25 H Creatinine 0.97 Glucose 138 H Calcium 8.2 L Liver Function 07/27/16 Range/Units 06:22 Total Bilirubin 0.8 (0.2-1.3) mg/dL AST 27 (14-36) U/L ALT 15 (9-52) U/L Alkaline Phosphatase 102 (38-126) U/L Albumin 3.0 L (3.5-5.0) g/dL Lungs: Essentially clear throughout, diminished bilateral bases right greater than left. Respirations are symmetrical and unlabored. O2 sat: 97% on room air. I/S: 750 mL, reviewed with the patient important of using her incentive spirometry every hour while awake. The patient did give a good return demonstration on her incentive spirometry. Heart: S1S2, regular rhythm and rate, negative for S3, gallop or murmur. Remote telemetry showing normal sinus rhythm heart rate 100. Sternum stable, chest incision clean with Dermabond dressing clean and dry. Heart hugger in place, patient is demonstrating proper use of her heart hugger. Atrial and ventricular epicardial pacemaker wires intact and grounded. Knee-high KELI hose and sequential compression devices in place to her bilateral lower extremities. Abdomen: Soft, nontender, positive bowel sounds present in all 4 quadrants. Positive flatus. CBGs: 107-129 mg/dL in the last 24 hours. U/O: Adequate. Chest Tubes: Right pleural chest tube without air leak, remains to low continuous wall suction. Draining thin serosanguineous drainage. 120 mL output in the last 8 hours, 130 mL output in the last 24 hours. 24 hr Total: Intake & Output 07/25/16 07/26/16 07/27/16 07/28/16 06:59 06:59 06:59 06:59 Intake Total 966.780 3197.921 476 Output Total 4430 1161 130 Balance -3524.876 570.921 346 Weight 82 kg 81.8 kg Active Medications Albuterol/Ipratropium (Duoneb 0.5 Mg-3 Mg/3 Ml Soln) 3 ml INHALATION RT-Q2H PRN PRN Reason: Shortness Of Breath Or Wheezing Albuterol/Ipratropium (Duoneb 0.5 Mg-3 Mg/3 Ml Soln) 3 ml INHALATION RT-QID [facility] Last Admin: 07/26/16 19:16 Dose: 3 ml Aspirin (Aspirin) 325 mg PO DAILY [facility] Last Admin: 07/26/16 09:34 Dose: 325 mg Atorvastatin Calcium (Lipitor) 40 mg PO DAILY [facility] Last Admin: 07/26/16 09:34 Dose: 40 mg Benzocaine/Menthol (Cepacol Lozenge) 1 each MUCOUS MEM Q2H PRN PRN Reason: Sore Throat Bisacodyl (Dulcolax) 10 mg RECTAL DAILY PRN PRN Reason: Constipation Budesonide/Formoterol Fumarate (Symbicort 160-4.5 Mcg Inhaler) 2 puff INHALATION RT-BID [facility] Last Admin: 07/26/16 19:16 Dose: 2 puff Cholecalciferol (Vitamin D3) 2,000 unit PO DAILY@1200 [facility] Last Admin: 07/26/16 15:57 Dose: 2,000 unit Clopidogrel Bisulfate (Plavix) 75 mg PO DAILY [facility] Last Admin: 07/26/16 09:34 Dose: 75 mg Heparin Sodium (Porcine) (Heparin) 5,000 unit SQ Q8HR [facility] Last Admin: 07/26/16 23:25 Dose: 5,000 unit Insulin Human Lispro (Humalog) 0 unit SQ ACHS [facility] PRN Reason: Protocol Last Admin: 07/27/16 06:53 Dose: Not Given Ketorolac Tromethamine (Toradol) 15 mg IVP Q6HR [facility] Stop: 07/30/16 10:01 Last Admin: 07/26/16 23:24 Dose: Not Given Magnesium Hydroxide (Milk Of Magnesia) 2,400 mg PO BID PRN PRN Reason: Constipation Metoprolol Tartrate (Lopressor) 25 mg PO BID [facility] Last Admin: 07/26/16 20:45 Dose: 25 mg Miscellaneous Information (Magnesium Per Protocol) 1 each MISCELLANE DAILY PRN ; Protocol PRN Reason: Per Protocol Miscellaneous Information (Phosphorus Per Protocol) 1 each MISCELLANE DAILY PRN ; Protocol PRN Reason: Per Protocol Miscellaneous Information (Potassium Per Protocol) 1 each MISCELLANE DAILY PRN ; Protocol PRN Reason: Per Protocol Multivitamins (Theragran) 1 each PO DAILY@1200 [facility] Last Admin: 07/26/16 15:57 Dose: 1 each Ondansetron HCl (Zofran) 4 mg IVP Q6HR PRN PRN Reason: Nausea And Vomiting Oxycodone/Acetaminophen (Percocet 7.5-325) 1 each PO Q4HR PRN PRN Reason: Pain Last Admin: 07/25/16 18:06 Dose: 1 each Oxycodone/Acetaminophen (Percocet 7.5-325) 2 each PO Q4HR PRN PRN Reason: Pain Last Admin: 07/27/16 04:44 Dose: 2 each Pantoprazole Sodium (Protonix) 40 mg PO AC-BRKFST [facility] Last Admin: 07/27/16 06:52 Dose: 40 mg Senna/Docusate Sodium (Senokot-S) 2 each PO HS [facility] Last Admin: 07/26/16 20:46 Dose: 2 each Sodium Chloride (Saline Flush) 10 ml IV BID [facility] Last Admin: 07/26/16 20:46 Dose: 10 ml Sodium Chloride (Saline Flush) 10 ml IV Q12HR [facility] Last Admin: 07/26/16 20:46 Dose: 10 ml Venlafaxine HCl (Effexor Xr) 150 mg PO BID [facility] Last Admin: 07/26/16 20:46 Dose: 150 mg Vitamin A (Vitamin A) 10,000 unit PO HS [facility] Last Admin: 07/26/16 20:46 Dose: 10,000 unit Plan: 1. Continue aspirin, Lipitor, Plavix, heparin subcu, increase metoprolol to 25 mg by mouth 3 times a day. 2. Will discontinue right pleural chest tube today. 3. Encourage incentive spirometry use every hour while awake. 4. Increase activity, ambulate in hallway. Physical therapy to follow. 5. GI/DVT prophylaxis. 6. Monitor daily labs, x-rays. 7. Insulin drip/diabetic management per internal medicine service. 8. Discharge planning in place. <Yovany Small - Last Filed: 07/27/16 10:46> Progress Note - Text The patient was seen and examined. I agree with the above assessment and plan. Overall she looks good. We will increase her beta daphne to 3 times daily. We will remove her remaining right pleural chest tube. We will continue with incentive spirometry. She will likely be discharged home within the next 24-48 hours.
--- NOTE | 2016-07-27 11:40 | P.PN ---
Subjective Principal diagnosis: Status post mitral valve replacement Patient lying in bed comfortably. She had been up earlier sitting in bedside chair. She had both of her chest tubes removed. She reports that her pain is controlled. Denies any nausea vomiting. She is passing gas. Last bowel movement 4 days ago. Urine output adequate. Patient was transferred to telemetry floor. Objective - Vital Signs Vital signs: Vital Signs Temp 98.2 F 07/27/16 09:25 Pulse 72 07/27/16 10:14 Resp 18 07/27/16 09:53 BP 130/87 07/27/16 09:25 Pulse Ox 97 07/27/16 09:25 Intake & Output 07/26/16 07/27/16 07/27/16 18:59 06:59 18:59 Intake Total 276 200 60 Output Total 10 120 Balance 266 80 60 Weight 81.8 kg Intake: IV 36 Pressure Bag 36 Intake, IV Titration 120 Amount Lactated Ringers 1,000 ml 120 @ 20 mls/hr IV .Q24H [facility] Rx#:[id number] Oral 120 200 60 Output: Chest Tube Drainage 10 120 Chest Tube Mediastinal 0 Chest Tube Right 10 120 Other: Voiding Method Indwelling Catheter Toilet Toilet # Voids 1 1 ABP, PAP, CO, CI - Last Documented Arterial Blood Pressure 124/69 Pulmonary Artery Pressure 43/28 Cardiac Output 6 Cardiac Index 3.2 - Exam HEENT head normocephalic and atramatic NECK is supple, no JVD no goiter no adenopathy LUNG exam reveals lung sounds slightly diminishes, no crackles no wheezing CARDIAC exam reveals regular S1 S2 no gallop, no murmurs ABDOMEN soft nontender no organomegly with normal bowel sounds EXTREMITIES exam reveal no edema no cyanosis - Labs CBC & Chem 7: 07/27/16 06:22 07/27/16 06:22 Labs: Abnormal Lab Results - Last 24 Hours (Table) 07/26/16 07/26/16 07/26/16 Range/Units 12:00 16:56 20:42 WBC (3.8-10.6) k/uL RBC (3.80-5.40) m/uL Hgb (11.4-16.0) gm/dL Hct (34.0-46.0) % RDW (11.5-15.5) % Plt Count (150-450) k/uL Neutrophils # (1.3-7.7) k/uL Sodium (137-145) mmol/L BUN (7-17) mg/dL Glucose (74-99) mg/dL POC Glucose (mg/dL) 107 H 129 H 113 H (75-99) mg/dL Calcium (8.4-10.2) mg/dL Total Protein (6.3-8.2) g/dL Albumin (3.5-5.0) g/dL 07/27/16 07/27/16 07/27/16 Range/Units 01:58 06:22 06:22 WBC 11.0 H (3.8-10.6) k/uL RBC 3.65 L (3.80-5.40) m/uL Hgb 9.8 L (11.4-16.0) gm/dL Hct 31.0 L (34.0-46.0) % RDW 15.7 H (11.5-15.5) % Plt Count 134 L (150-450) k/uL Neutrophils # 8.9 H (1.3-7.7) k/uL Sodium 130 L (137-145) mmol/L BUN 25 H (7-17) mg/dL Glucose 138 H (74-99) mg/dL POC Glucose (mg/dL) 110 H (75-99) mg/dL Calcium 8.2 L (8.4-10.2) mg/dL Total Protein 5.8 L (6.3-8.2) g/dL Albumin 3.0 L (3.5-5.0) g/dL 07/27/16 Range/Units 06:52 WBC (3.8-10.6) k/uL RBC (3.80-5.40) m/uL Hgb (11.4-16.0) gm/dL Hct (34.0-46.0) % RDW (11.5-15.5) % Plt Count (150-450) k/uL Neutrophils # (1.3-7.7) k/uL Sodium (137-145) mmol/L BUN (7-17) mg/dL Glucose (74-99) mg/dL POC Glucose (mg/dL) 127 H (75-99) mg/dL Calcium (8.4-10.2) mg/dL Total Protein (6.3-8.2) g/dL Albumin (3.5-5.0) g/dL Assessment and Plan Plan: 1. Severe mitral valve regurgitation: Postoperative day #3 status post mitral valve replacement with excision of left atrial appendage. 2. Diabetes mellitus type 2: Diet controlled. Insulin drip has been discontinued. Add Accu-Cheks every before meals and at bedtime, check A1C 3. Moderate pulmonary hypertension 4. History of TIA 5. History of COPD: Stable 6. History of diastolic congestive heart failure: stable 7. Acute kidney injury: Likely related to diuretics. She did receive 1 dose of Lasix yesterday. Repeat labs tomorrow. 8. Constipation: Continue Senokot and milk of magnesia as needed GI prophylaxis Protonix and DVT prophylaxis subcu heparin
[2016-07-27 11:51] LABS: Glucose,Whole Blood 119 mg/dL (75-99)
--- NOTE | 2016-07-27 12:25 | P.PN ---
Subjective As a pleasant 56-year-old lady with a history of mitral regurgitation, postop day #3 for mitral valve replacement. She is feeling well. Chest tubes remain in place. Beta daphne dose was decreased due to hypotension and blood pressure is stable. Examination, patient is resting comfortable in bed. She complains of discomfort at the chest tube site. Denies shortness of breath or dizziness. Objective - Vital Signs Vital signs: Vital Signs Temp 98.2 F 07/27/16 09:25 Pulse 72 07/27/16 10:14 Resp 18 07/27/16 09:53 BP 130/87 07/27/16 09:25 Pulse Ox 97 07/27/16 09:25 Intake & Output 07/26/16 07/27/16 07/27/16 18:59 06:59 18:59 Intake Total 276 200 60 Output Total 10 120 Balance 266 80 60 Weight 81.8 kg Intake: IV 36 Pressure Bag 36 Intake, IV Titration 120 Amount Lactated Ringers 1,000 ml 120 @ 20 mls/hr IV .Q24H [facility] Rx#:[id number] Oral 120 200 60 Output: Chest Tube Drainage 10 120 Chest Tube Mediastinal 0 Chest Tube Right 10 120 Other: Voiding Method Indwelling Catheter Toilet Toilet # Voids 1 1 ABP, PAP, CO, CI - Last Documented Arterial Blood Pressure 124/69 Pulmonary Artery Pressure 43/28 Cardiac Output 6 Cardiac Index 3.2 - Exam PHYSICAL EXAMINATION: HEENT: Head is atraumatic, normocephalic. Pupils equal, round. Neck is supple. There is no elevated jugular venous pressure. HEART EXAMINATION: Heart sounds regular, S1 and S2 normal. No murmur or gallop heard. CHEST EXAMINATION: Lungs reveal diminished air entry bilateral bases. No chest wall tenderness is noted on palpation or with deep breathing. ABDOMEN: Soft, nontender. Bowel sounds are heard. No organomegaly noted. EXTREMITIES: 2+ peripheral pulses with no evidence of peripheral edema and no calf tenderness noted. NEUROLOGIC patient is awake, alert and oriented x3. . - Labs CBC & Chem 7: 07/27/16 06:22 07/27/16 06:22 Labs: Abnormal Lab Results - Last 24 Hours (Table) 07/26/16 07/26/16 07/27/16 Range/Units 16:56 20:42 01:58 WBC (3.8-10.6) k/uL RBC (3.80-5.40) m/uL Hgb (11.4-16.0) gm/dL Hct (34.0-46.0) % RDW (11.5-15.5) % Plt Count (150-450) k/uL Neutrophils # (1.3-7.7) k/uL Sodium (137-145) mmol/L BUN (7-17) mg/dL Glucose (74-99) mg/dL POC Glucose (mg/dL) 129 H 113 H 110 H (75-99) mg/dL Calcium (8.4-10.2) mg/dL Total Protein (6.3-8.2) g/dL Albumin (3.5-5.0) g/dL 07/27/16 07/27/16 07/27/16 Range/Units 06:22 06:22 06:52 WBC 11.0 H (3.8-10.6) k/uL RBC 3.65 L (3.80-5.40) m/uL Hgb 9.8 L (11.4-16.0) gm/dL Hct 31.0 L (34.0-46.0) % RDW 15.7 H (11.5-15.5) % Plt Count 134 L (150-450) k/uL Neutrophils # 8.9 H (1.3-7.7) k/uL Sodium 130 L (137-145) mmol/L BUN 25 H (7-17) mg/dL Glucose 138 H (74-99) mg/dL POC Glucose (mg/dL) 127 H (75-99) mg/dL Calcium 8.2 L (8.4-10.2) mg/dL Total Protein 5.8 L (6.3-8.2) g/dL Albumin 3.0 L (3.5-5.0) g/dL 07/27/16 Range/Units 11:40 WBC (3.8-10.6) k/uL RBC (3.80-5.40) m/uL Hgb (11.4-16.0) gm/dL Hct (34.0-46.0) % RDW (11.5-15.5) % Plt Count (150-450) k/uL Neutrophils # (1.3-7.7) k/uL Sodium (137-145) mmol/L BUN (7-17) mg/dL Glucose (74-99) mg/dL POC Glucose (mg/dL) 119 H (75-99) mg/dL Calcium (8.4-10.2) mg/dL Total Protein (6.3-8.2) g/dL Albumin (3.5-5.0) g/dL Assessment and Plan Plan: Assessment and plan #1 mitral regurgitation #2 status post mitral valve replacement, postop day #3 From cardiology's perspective, medications are reviewed we will continue the same. Continue to increase patient's activity. Further recommendations to follow. The above dictated assessment and findings were discussed with signing physician. The impression and plan of care have been directed as dictated. Smitha Luna, Nurse Practitioner, acting as scribe for signing physician.
[2016-07-27] MEDS: MULTIVITAMINS, THERA 1 EACH TAB PO SCH (13:10)
[2016-07-27] MEDS: KETOROLAC 30 MG/ML 1 ML VIAL IVP SCH ×3 (13:45→23:58)
--- NOTE | 2016-07-27 16:45 | PN ---
This is a 56-year-old female who is status post mitral valve replacement for severe mitral regurgitation. She had postoperative respiratory failure with ventilator management, history of cerebrovascular accident, chronic obstructive pulmonary disease, congestive heart failure, hypertension, history of chronic tobacco dependence, diabetes, GERD, and history of gastric bypass. All in all, doing reasonably well. Seen by thoracic surgery today yet. Not yet ready for discharge. The patient really does not have much in the way of complaints. No shortness of breath. No cough, no wheezing. No phlegm production. No chest pain or chest discomfort. The incision seemed to be healing well. CURRENT VITAL SIGNS: Temperature 98.2, heart rate 72, respiratory rate 18, blood pressure 130/87, mean of 101 and a saturation 97% on room air. Appears in no acute distress. HEENT examination is grossly unremarkable. Mucous membranes are moist. No oral lesions. Neck is supple. Full range of motion. No adenopathy or thyromegaly. Neck veins are flat. Cardiovascular examination reveals regular rhythm and rate. S1, S2 normal. No murmur. Lungs reveal clear breath sounds. No wheezes, rhonchi or crackles. ABDOMEN: Soft. Bowel sounds are heard. EXTREMITIES: Intact. No cyanosis, clubbing, or edema. Skin without rash. NEUROLOGICAL: Examination is nonfocal. Labs are reviewed. White count 11. Hemoglobin 9.8, hematocrit 31.0, platelet count 134,000. Sodium 130, potassium 4.1, chloride 98, CO2 of 24, BUN and creatinine were 25 and 0.97. The rest of the labs look okay. Chest x-ray from today shows postsurgical changes. Chest stable. Medications are reviewed. She is on appropriate breathing medications. ASSESSMENT: 1. Status post mitral valve replacement for severe mitral regurgitation. 2. Postoperative respiratory failure which is relatively short-term intubation and mechanical ventilation. 3. History of cerebrovascular accident. 4. Chronic obstructive pulmonary disease. 5. Congestive heart failure, diastolic. 6. Hypertension. 7. History of chronic tobacco dependency. 8. Diabetes mellitus. 9. Gastroesophageal reflux disease. 10. Previous history of gastric bypass. PLAN: The patient will continue on DuoNeb q.i.d. and p.r.n. as well as Pulmicort and 160/4.5, 2 puffs twice a day. We will continue to follow closely. We recommend deep breathing coughing and clearing of secretions as well as the use daily incentive spirometry. She should use incentive spirometer 10 times per hour while she is awake. No additional recommendations are made. Will continue to follow closely. Prognosis is guarded.
[2016-07-27 17:11] LABS: Glucose,Whole Blood 112 mg/dL (75-99)
[2016-07-27 21:18] LABS: Glucose,Whole Blood 166 mg/dL (75-99)
[2016-07-27] MEDS: SENNOSIDES-DOCUSATE SODIUM 1 EACH TAB PO SCH (22:07)
[2016-07-27] MEDS: VITAMIN A 10,000 UNIT CAPSULE PO SCH (22:09)
[2016-07-28] MEDS: HEPARIN SODIUM,PORCINE 5,000 UNIT/ML 1 ML VIAL SQ SCH ×4 (00:04→22:51)
[2016-07-28] MEDS: oxyCODONE-APAP 7.5-325MG 1 EACH TAB PO PRN ×4 (01:13→22:57)
[2016-07-28 02:07] LABS: Glucose,Whole Blood 138 mg/dL (75-99)
[2016-07-28 05:51] LABS: Glucose,Whole Blood 90 mg/dL (75-99)
[2016-07-28 06:49] LABS: Basophils % (A) 0 %; CH 26.6; CHCM 31.2; Eosinophils % (A) 0 %; HDW 2.79; HGB 9.3 gm/dL (11.4-16.0); Hypochromasia Slight; Luc # (Auto) 0.37; Luc % (Auto) 4; Lymphocytes # (A) 1.6 k/uL (1.0-4.8); Lymphocytes % (A) 17 %; MCH 26.5 pg (25.0-35.0); MCHC 30.9 g/dL (31.0-37.0); MCV 85.6 fL (80.0-100.0); Mean Platelet Volume 8.6; Monocytes # (A) 0.9 k/uL (0-1.0); Monocytes % (A) 10 %; Neutrophils # (A) 6.4 k/uL (1.3-7.7); Neutrophils % (A) 69 %; RDW 15.8 % (11.5-15.5); WBC 9.3 k/uL (3.8-10.6); WBC (Perox) 9.68
[2016-07-28 07:05] LABS: ALT 21 U/L (9-52); AST 23 U/L (14-36); Alkaline Phosphatase 104 U/L (38-126); Anion Gap 7 mmol/L; Blood Urea Nitrogen 21 mg/dL (7-17); Calcium 8.3 mg/dL (8.4-10.2); Carbon Dioxide 26 mmol/L (22-30); Chloride 98 mmol/L (98-107); Glucose 85 mg/dL (74-99); Non-African American GFR(MDRD) 58 (>60 ml/min/1.73 sqM); Potassium 4.1 mmol/L (3.5-5.1); Sodium 131 mmol/L (137-145); Total Bilirubin 0.5 mg/dL (0.2-1.3); Total Protein 5.2 g/dL (6.3-8.2)
[2016-07-28] MEDS: IPRATROPIUM-ALBUTEROL 3 ML NEB INHALATION SCH ×4 (09:12→20:04)
[2016-07-28] MEDS: SYMBICORT 160-4.5 MCG INHALER INHALATION SCH ×2 (09:12→20:04)
--- NOTE | 2016-07-28 09:39 | P.PN ---
Subjective Principal diagnosis: Status post mitral valve replacement Patient lying in bed comfortably. She had been up earlier sitting in bedside chair. She had both of her chest tubes removed. She reports that her pain is controlled. Denies any nausea vomiting. She is passing gas. Last bowel movement 4 days ago. Urine output adequate. Patient was transferred to telemetry floor. Objective - Vital Signs Vital signs: Vital Signs Temp 97.8 F 07/28/16 04:00 Pulse 86 07/28/16 09:13 Resp 18 07/28/16 04:00 BP 108/71 07/28/16 04:00 Pulse Ox 96 07/28/16 04:00 Intake & Output 07/27/16 07/28/16 07/28/16 18:59 06:59 18:59 Intake Total 760 Output Total 60 7 Balance 700 -7 Weight 84.1 kg Intake: Oral 760 Output: Chest Tube Drainage 60 Chest Tube Right 60 Urine 7 Other: Voiding Method Toilet Toilet # Voids 1 1 ABP, PAP, CO, CI - Last Documented Arterial Blood Pressure 124/69 Pulmonary Artery Pressure 43/28 Cardiac Output 6 Cardiac Index 3.2 - Exam HEENT head normocephalic and atramatic NECK is supple, no JVD no goiter no adenopathy LUNG exam reveals lung sounds slightly diminishes, no crackles no wheezing CARDIAC exam reveals regular S1 S2 no gallop, no murmurs ABDOMEN soft nontender no organomegly with normal bowel sounds EXTREMITIES exam reveal no edema no cyanosis - Labs CBC & Chem 7: 07/28/16 06:06 07/28/16 06:06 Labs: Abnormal Lab Results - Last 24 Hours (Table) 07/27/16 07/27/16 07/27/16 Range/Units 11:40 17:09 21:15 RBC (3.80-5.40) m/uL Hgb (11.4-16.0) gm/dL Hct (34.0-46.0) % MCHC (31.0-37.0) g/dL RDW (11.5-15.5) % Sodium (137-145) mmol/L BUN (7-17) mg/dL POC Glucose (mg/dL) 119 H 112 H 166 H (75-99) mg/dL Calcium (8.4-10.2) mg/dL Total Protein (6.3-8.2) g/dL Albumin (3.5-5.0) g/dL 07/28/16 07/28/16 07/28/16 Range/Units 02:06 06:06 06:06 RBC 3.50 L (3.80-5.40) m/uL Hgb 9.3 L (11.4-16.0) gm/dL Hct 30.0 L (34.0-46.0) % MCHC 30.9 L (31.0-37.0) g/dL RDW 15.8 H (11.5-15.5) % Sodium 131 L (137-145) mmol/L BUN 21 H (7-17) mg/dL POC Glucose (mg/dL) 138 H (75-99) mg/dL Calcium 8.3 L (8.4-10.2) mg/dL Total Protein 5.2 L (6.3-8.2) g/dL Albumin 2.7 L (3.5-5.0) g/dL Assessment and Plan Plan: 1. Severe mitral valve regurgitation: Postoperative day #3 status post mitral valve replacement with excision of left atrial appendage. 2. Diabetes mellitus type 2: Diet controlled. Insulin drip has been discontinued. Add Accu-Cheks every before meals and at bedtime, check A1C 3. Moderate pulmonary hypertension 4. History of TIA 5. History of COPD: Stable 6. History of diastolic congestive heart failure: stable 7. Acute kidney injury: Likely related to diuretics. She did receive 1 dose of Lasix yesterday. Repeat labs tomorrow. 8. Constipation: Continue Senokot and milk of magnesia as needed 9. Anemia, post op will monitor, may need iron supplements, will check iron studies GI prophylaxis Protonix and DVT prophylaxis subcu heparin Patient is stable possible discharge in the next 24-48 hours
[2016-07-28] MEDS: INSULIN LISPRO (humaLOG) 300 UNIT/3 ML VIAL SQ SCH ×4 (11:10→22:49)
[2016-07-28] MEDS: KETOROLAC 30 MG/ML 1 ML VIAL IVP SCH ×3 (11:11→18:18)
[2016-07-28] MEDS: ASPIRIN 325 MG TAB PO SCH (11:13)
[2016-07-28] MEDS: ATORVASTATIN 40 MG TAB PO SCH (11:14)
[2016-07-28] MEDS: CLOPIDOGREL 75 MG TAB PO SCH ×2 (11:14→11:55)
[2016-07-28] MEDS: PANTOPRAZOLE 40 MG TABLET PO SCH (11:54)
[2016-07-28] MEDS: CHOLECALCIFEROL 1,000 UNIT TAB PO SCH (11:55)
[2016-07-28] MEDS: MULTIVITAMINS, THERA 1 EACH TAB PO SCH (11:55)
[2016-07-28] MEDS: METOPROLOL TARTRATE 25 MG TAB PO SCH ×3 (11:56→22:50)
[2016-07-28] MEDS: VENLAFAXINE HCL ER 150 MG CAP PO SCH ×2 (11:56→22:50)
[2016-07-28 11:59] LABS: Glucose,Whole Blood 101 mg/dL (75-99)
[2016-07-28 12:02] LABS: % Iron Saturation 4.1 % (20-50)
--- NOTE | 2016-07-28 12:55 | PN ---
56-year-old lady with severe mitral regurgitation status post mitral valve replacement. She is doing well. Free of symptoms. On exam, vital signs are stable. Chest exam reveals good air entry bilaterally. Heart exam reveals first and second heart sounds. No gallop. Exam of the extremities did not reveal edema. Peripheral pulses are felt. She is currently on aspirin, Lipitor, Plavix along with Lopressor 25 t.i.d. On exam, comfortable at rest. Vital signs are stable. Chest exam reveals good air entry bilaterally. Heart exam reveals first and second heart sounds. No gallop. ABDOMEN: Soft. Exam of the extremities did not reveal edema. Peripheral pulses are felt. ASSESSMENT: Mitral regurgitation, status post mitral valve replacement. PLAN: The patient is doing well. She is stable for discharge.
--- NOTE | 2016-07-28 12:57 | P.PN ---
Progress Note - Text CV Surgery Nursing Principal diagnosis: Severe mitral valve regurgitation with evidence of rheumatic features. Moderate pulmonary hypertension. Mild tricuspid valve regurgitation. Moderate left ventricular dysfunction. Mildly dilated ascending aorta. Chronic obstructive pulmonary disease with tobacco abuse. History of cerebral vascular accident and transient ischemic attack. Diabetes mellitus. Fibromyalgia. Gastroesophageal reflux disease with history of Hernandez's esophagitis. Rheumatic mitral valve disorder. POD #4 Chordal preserving mitral valve replacement using a 29 mm porcine bioprosthesis, Mosaic. Exclusion of the left atrial appendage using a 50 mm AtriClip. Intraoperative transesophageal echocardiogram and epi-aortic scanning. Patient awake and alert, no distress noted, no specific complaints. She is sitting up to the bedside chair at this time. She states that she had walked in the hallway 4 times yesterday. Vital Signs: Afebrile Vital Signs - 24 hr 07/27/16 07/27/16 07/27/16 12:58 13:19 13:30 Temperature Pulse Rate 74 76 Pulse Rate [ Bilateral Dorsalis Pedis] Pulse Rate [ 92 Bilateral Radial] Pulse Rate [ Kier Pleater ] Respiratory 17 Rate Blood Pressure [Left Arm] Blood Pressure 118/78 [Left Radial Artery] O2 Sat by Pulse 99 Oximetry 07/27/16 07/27/16 07/27/16 16:00 16:03 16:16 Temperature Pulse Rate 70 72 Pulse Rate [ Bilateral Dorsalis Pedis] Pulse Rate [ 94 Bilateral Radial] Pulse Rate [ Kier Pleater ] Respiratory 16 Rate Blood Pressure 111/67 [Left Arm] Blood Pressure [Left Radial Artery] O2 Sat by Pulse 98 Oximetry 07/27/16 07/27/16 07/27/16 18:15 20:00 20:31 Temperature 98.1 F Pulse Rate 90 Pulse Rate [ 93 Bilateral Dorsalis Pedis] Pulse Rate [ 92 Bilateral Radial] Pulse Rate [ 95 97 Kier Pleater ] Respiratory 17 18 Rate Blood Pressure 127/80 [Left Arm] Blood Pressure [Left Radial Artery] O2 Sat by Pulse 94 L Oximetry 07/27/16 07/28/16 07/28/16 20:43 00:00 04:00 Temperature 98.8 F 97.8 F Pulse Rate 88 Pulse Rate [ Bilateral Dorsalis Pedis] Pulse Rate [ Bilateral Radial] Pulse Rate [ 96 88 Kier Pleater ] Respiratory 18 18 Rate Blood Pressure 115/79 108/71 [Left Arm] Blood Pressure [Left Radial Artery] O2 Sat by Pulse 96 96 Oximetry 07/28/16 09:13 Temperature Pulse Rate 86 Pulse Rate [ Bilateral Dorsalis Pedis] Pulse Rate [ Bilateral Radial] Pulse Rate [ Kier Pleater ] Respiratory Rate Blood Pressure [Left Arm] Blood Pressure [Left Radial Artery] O2 Sat by Pulse Oximetry Labs: Short CBC 07/28/16 Range/Units 06:06 WBC 9.3 (3.8-10.6) k/uL Hgb 9.3 L (11.4-16.0) gm/dL Hct 30.0 L (34.0-46.0) % Plt Count 153 (150-450) k/uL Neutrophils # 6.4 (1.3-7.7) k/uL BMP 07/28/16 06:06 Sodium 131 L Potassium 4.1 Chloride 98 Carbon Dioxide 26 BUN 21 H Creatinine 1.00 Glucose 85 Calcium 8.3 L Liver Function 07/28/16 Range/Units 06:06 Total Bilirubin 0.5 (0.2-1.3) mg/dL AST 23 (14-36) U/L ALT 21 (9-52) U/L Alkaline Phosphatase 104 (38-126) U/L Albumin 2.7 L (3.5-5.0) g/dL Lungs: Essentially clear throughout, diminished bilateral bases. Respirations are symmetrical and nonlabored. O2 sat: 96% on room air. I/S: 1000 mL, reviewed with the patient important of using her incentive spirometry every hour while awake. The patient did give a good return demonstration on her incentive spirometry. Heart: S1S2, regular rhythm and rate, negative for S3, gallop or murmur. Remote telemetry showing normal sinus rhythm with occasional PVC, heart rate 97. Sternum stable, chest incision clean with Dermabond dressing clean and dry. Heart hugger in place, patient is demonstrating appropriate use of her heart hugger. Atrial and ventricular pacemaker wires in place and grounded. Knee-high KELI hose and sequential compression devices in place to her bilateral lower extremities. Abdomen: Soft, Positive bowel sounds present in all 4 quadrants. CBGs: 90-166 mg/dL in the last 24 hours. U/O: Adequate. 24 hr Total: Intake & Output 07/26/16 07/27/16 07/28/16 07/29/16 06:59 06:59 06:59 06:59 Intake Total 1731.921 476 760 Output Total 1161 130 67 Balance 570.921 346 693 Weight 81.8 kg 84.1 kg Active Medications Albuterol/Ipratropium (Duoneb 0.5 Mg-3 Mg/3 Ml Soln) 3 ml INHALATION RT-Q2H PRN PRN Reason: Shortness Of Breath Or Wheezing Albuterol/Ipratropium (Duoneb 0.5 Mg-3 Mg/3 Ml Soln) 3 ml INHALATION RT-QID [facility] Last Admin: 07/28/16 09:12 Dose: 3 ml Aspirin (Aspirin) 325 mg PO DAILY [facility] Last Admin: 07/27/16 09:04 Dose: 325 mg Atorvastatin Calcium (Lipitor) 40 mg PO DAILY [facility] Last Admin: 07/27/16 09:04 Dose: 40 mg Benzocaine/Menthol (Cepacol Lozenge) 1 each MUCOUS MEM Q2H PRN PRN Reason: Sore Throat Bisacodyl (Dulcolax) 10 mg RECTAL DAILY PRN PRN Reason: Constipation Budesonide/Formoterol Fumarate (Symbicort 160-4.5 Mcg Inhaler) 2 puff INHALATION RT-BID [facility] Last Admin: 07/28/16 09:12 Dose: 2 puff Cholecalciferol (Vitamin D3) 2,000 unit PO DAILY@1200 [facility] Last Admin: 07/27/16 09:08 Dose: 2,000 unit Clopidogrel Bisulfate (Plavix) 75 mg PO DAILY [facility] Last Admin: 07/27/16 09:04 Dose: 75 mg Heparin Sodium (Porcine) (Heparin) 5,000 unit SQ Q8HR [facility] Last Admin: 07/28/16 00:04 Dose: 5,000 unit Insulin Human Lispro (Humalog) 0 unit SQ ACHS [facility] PRN Reason: Protocol Last Admin: 07/27/16 22:06 Dose: 2 unit Ketorolac Tromethamine (Toradol) 15 mg IVP Q6HR [facility] Stop: 07/30/16 10:01 Last Admin: 07/27/16 23:58 Dose: 15 mg Magnesium Hydroxide (Milk Of Magnesia) 2,400 mg PO BID PRN PRN Reason: Constipation Metoprolol Tartrate (Lopressor) 25 mg PO TID [facility] Miscellaneous Information (Magnesium Per Protocol) 1 each MISCELLANE DAILY PRN ; Protocol PRN Reason: Per Protocol Miscellaneous Information (Phosphorus Per Protocol) 1 each MISCELLANE DAILY PRN ; Protocol PRN Reason: Per Protocol Miscellaneous Information (Potassium Per Protocol) 1 each MISCELLANE DAILY PRN ; Protocol PRN Reason: Per Protocol Multivitamins (Theragran) 1 each PO DAILY@1200 [facility] Last Admin: 07/27/16 13:10 Dose: 1 each Ondansetron HCl (Zofran) 4 mg IVP Q6HR PRN PRN Reason: Nausea And Vomiting Oxycodone/Acetaminophen (Percocet 7.5-325) 1 each PO Q4HR PRN PRN Reason: Pain Last Admin: 07/25/16 18:06 Dose: 1 each Oxycodone/Acetaminophen (Percocet 7.5-325) 2 each PO Q4HR PRN PRN Reason: Pain Last Admin: 07/28/16 01:13 Dose: 2 each Pantoprazole Sodium (Protonix) 40 mg PO AC-BRKFST [facility] Last Admin: 07/27/16 06:52 Dose: 40 mg Senna/Docusate Sodium (Senokot-S) 2 each PO HS [facility] Last Admin: 07/27/16 22:07 Dose: 2 each Sodium Chloride (Saline Flush) 10 ml IV BID [facility] Last Admin: 07/27/16 22:04 Dose: 10 ml Sodium Chloride (Saline Flush) 10 ml IV Q12HR [facility] Last Admin: 07/28/16 08:26 Dose: Not Given Venlafaxine HCl (Effexor Xr) 150 mg PO BID [facility] Last Admin: 07/27/16 22:04 Dose: 150 mg Vitamin A (Vitamin A) 10,000 unit PO [facility] Last Admin: 07/27/16 22:09 Dose: 10,000 unit Plan: 1. Continue aspirin, Lipitor, Plavix, heparin subcu, metoprolol was increased to 25 mg by mouth 3 times a day yesterday. 2. Insulin drip/diabetic management per internal medicine service. 3. Encourage incentive spirometry use every hour while awake. 4. Increase activity, ambulate in hallway. Physical therapy to follow. 5. GI/DVT prophylaxis. 6. Monitor daily labs, x-rays. 7. We will discontinue A/V pacemaker wires in the a.m. 8. Discharge planning in place, possible discharge home tomorrow.
--- NOTE | 2016-07-28 14:12 | XR ---
EXAMINATION TYPE: XR chest 2V DATE OF EXAM: 07/28/2016 HISTORY: post chest tube removal. post op cardiac surgery. REFERENCE: Previous study dated 08/23/2016. FINDINGS: There has been a previous ACDF in the lower cervical spine. There has been a previous midline sternotomy. The lungs are overinflated. The heart is enlarged. There is some chronic atelectasis in the left uppe r lobe. There is improved aeration at the left lung base. IMPRESSION: IMPROVED AERATION, LEFT LUNG BASE.
[2016-07-28 17:14] LABS: Glucose,Whole Blood 87 mg/dL (75-99)
[2016-07-28 20:41] LABS: Glucose,Whole Blood 181 mg/dL (75-99)
[2016-07-28 20:59] VITALS: RESP 18
[2016-07-28] MEDS: SENNOSIDES-DOCUSATE SODIUM 1 EACH TAB PO SCH (22:49)
[2016-07-28] MEDS: VITAMIN A 10,000 UNIT CAPSULE PO SCH (22:50)
[2016-07-29 01:55] LABS: Glucose,Whole Blood 91 mg/dL (75-99)
[2016-07-29 05:54] LABS: Glucose,Whole Blood 86 mg/dL (75-99)
[2016-07-29] MEDS: PANTOPRAZOLE 40 MG TABLET PO SCH (06:31)
[2016-07-29] MEDS: KETOROLAC 30 MG/ML 1 ML VIAL IVP SCH ×3 (06:33→11:05)
[2016-07-29 07:08] LABS: ALT 22 U/L (9-52); AST 27 U/L (14-36); Alkaline Phosphatase 115 U/L (38-126); Anion Gap 9 mmol/L; Blood Urea Nitrogen 19 mg/dL (7-17); Calcium 8.4 mg/dL (8.4-10.2); Carbon Dioxide 23 mmol/L (22-30); Chloride 100 mmol/L (98-107); Glucose 86 mg/dL (74-99); Non-African American GFR(MDRD) >60 (>60 ml/min/1.73 sqM); Potassium 4.3 mmol/L (3.5-5.1); Sodium 132 mmol/L (137-145); Total Bilirubin 0.8 mg/dL (0.2-1.3); Total Protein 5.7 g/dL (6.3-8.2)
[2016-07-29] MEDS: INSULIN LISPRO (humaLOG) 300 UNIT/3 ML VIAL SQ SCH ×2 (07:57→12:32)
[2016-07-29] MEDS: SYMBICORT 160-4.5 MCG INHALER INHALATION SCH (08:00)
[2016-07-29] MEDS: IPRATROPIUM-ALBUTEROL 3 ML NEB INHALATION SCH ×3 (08:01→15:41)
[2016-07-29] MEDS: oxyCODONE-APAP 7.5-325MG 1 EACH TAB PO PRN ×2 (08:23→16:14)
[2016-07-29] MEDS: HEPARIN SODIUM,PORCINE 5,000 UNIT/ML 1 ML VIAL SQ SCH ×3 (08:24→15:12)
[2016-07-29] MEDS: METOPROLOL TARTRATE 25 MG TAB PO SCH ×2 (08:24→15:49)
[2016-07-29] MEDS: CLOPIDOGREL 75 MG TAB PO SCH (08:25)
[2016-07-29] MEDS: ATORVASTATIN 40 MG TAB PO SCH (08:26)
[2016-07-29] MEDS: VENLAFAXINE HCL ER 150 MG CAP PO SCH (08:26)
[2016-07-29] MEDS: ASPIRIN 325 MG TAB PO SCH (08:26)
[2016-07-29] MEDS: MULTIVITAMINS, THERA 1 EACH TAB PO SCH (08:26)
[2016-07-29] MEDS: CHOLECALCIFEROL 1,000 UNIT TAB PO SCH (08:26)
[2016-07-29] MEDS ORDERED: FERROUS SULFATE 325 MG TAB PO SCH (09:00)
--- NOTE | 2016-07-29 10:01 | PN ---
56-year-old female status post mitral valve replacement for severe mitral regurgitation. She had a postoperative respiratory failure ventilator management which she recovered from very quickly. She also has a history of cerebrovascular accident COPD, for which she sees Dr. Stevens, CHF, hypertension, history of chronic tobacco dependence, diabetes, GERD and previous history of gastric bypass. Doing real well. Spent a couple days here in the unit. Transitioned out to the floor. The patient does follow with Dr. Stevens for her COPD she is doing well. Her COPD is not currently active. Really denies any chest pain, chest discomfort, cough, wheezing, shortness breath, and phlegm production, nausea, vomiting, or diarrhea. Current vital signs are stable. Temperature 97.8, heart rate 88, respiratory rate 18, blood pressure 108/71, mean 83, saturations on room air 96%. Appears in no acute distress. HEENT examination is grossly unremarkable. Mucous membranes are moist. No oral lesions. Neck is supple. Full range of motion. No adenopathy or thyromegaly. Cardiovascular examination reveals regular rhythm and rate. Lungs reveal relatively clear breath sounds. No wheezes, rhonchi or crackles. Breath sounds equal. ABDOMEN: Soft. Bowel sounds are heard. No masses or tenderness. EXTREMITIES: Intact. No cyanosis, clubbing, or edema. Skin is without rash. NEUROLOGICAL: Examination is nonfocal. Labs are reviewed. White count 9.3, hemoglobin 9.3, hematocrit 30.0, platelet count 53,000. Sodium 131, potassium 4.1, chloride 98, CO2 of 26. BUN and creatinine are 21 and 1.0. A chest x-ray is just recently done. It has not been officially read as yet. From my perspective, but with relatively stable. She has got some very mild basilar atelectasis. There may be a small effusion bilaterally. Very small. Medications are reviewed. Microbiology is negative. ASSESSMENT: 1. Status post mitral valve replacement for severe mitral regurgitation. 2. Postoperative respiratory failure which is relatively short-term and the patient was extubated relatively quickly. 3. History of cerebrovascular accident. 4. History of chronic obstructive pulmonary disease. 5. Diastolic congestive heart failure. 6. Hypertension. 7. History of chronic tobacco dependency. 8. Diabetes mellitus. 9. Gastroesophageal reflux disease. 10. Previous history of gastric bypass. PLAN: The patient is doing well. Continue to follow closely. Medications are reviewed. She is on her usual medications including Symbicort and DuoNeb. No additional recommendations are made. Hopeful discharge soon.
[2016-07-29] MEDS ORDERED: LACTULOSE 20 GM/30 ML CUP PO ONE (11:22)
[2016-07-29 11:29] VITALS: PULSE 97
[2016-07-29 11:34] VITALS: BP 112/73; TEMP 98.1
[2016-07-29] MEDS ORDERED: SODIUM FERRIC GLUCONAT-SUCROSE 125 MG in SODIUM CHLORIDE 0.9% 100 ML IVPB ONE (11:38)
--- NOTE | 2016-07-29 11:48 | P.PN ---
Subjective Status post mitral valve replacement Patient reports pain is controlled. She's been up and ambulating in the hallway. Is complaining of some constipation. Last bowel movement about 6 days ago. Passing gas. No abdominal pain. No nausea or vomiting. She has been eating but not as much as she is at home. They're anticipating discharge later this afternoon. Objective - Vital Signs Vital signs: Vital Signs Temp 98.1 F 07/29/16 11:29 Pulse 97 07/29/16 11:29 Resp 18 07/29/16 11:29 BP 112/73 07/29/16 11:29 Pulse Ox 97 07/29/16 11:29 Intake & Output 07/28/16 07/29/16 07/29/16 18:59 06:59 18:59 Intake Total 500 240 240 Balance 500 240 240 Weight 84.3 kg Intake: Oral 500 240 240 Other: Voiding Method Toilet Toilet # Voids 1 ABP, PAP, CO, CI - Last Documented Arterial Blood Pressure 124/69 Pulmonary Artery Pressure 43/28 Cardiac Output 6 Cardiac Index 3.2 - Exam Head normocephalic Neck supple Lungs clear to auscultation bilaterally no wheezing or crackles Heart regular rate and rhythm S1-S2, no rub or gallop Abdomen is soft nontender nondistended positive bowel sounds no hepatosplenomegaly Extremities no edema Neuro alert and orientated to 3 - Labs CBC & Chem 7: 07/28/16 06:06 07/29/16 06:09 Labs: Abnormal Lab Results - Last 24 Hours (Table) 07/28/16 07/28/16 07/28/16 Range/Units 06:06 11:54 20:39 Sodium (137-145) mmol/L BUN (7-17) mg/dL POC Glucose (mg/dL) 101 H 181 H (75-99) mg/dL Iron 12 L (37-170) ug/dL % Saturation 4.1 L (20-50) % Total Protein (6.3-8.2) g/dL Albumin (3.5-5.0) g/dL 07/29/16 Range/Units 06:09 Sodium 132 L (137-145) mmol/L BUN 19 H (7-17) mg/dL POC Glucose (mg/dL) (75-99) mg/dL Iron (37-170) ug/dL % Saturation (20-50) % Total Protein 5.7 L (6.3-8.2) g/dL Albumin 2.8 L (3.5-5.0) g/dL Assessment and Plan Plan: 1. Severe mitral valve regurgitation: status post mitral valve replacement with excision of left atrial appendage. 2. Diabetes mellitus type 2: Diet controlled. Insulin drip has been discontinued. Add Accu-Cheks every before meals and at bedtime. Hemoglobin A1c 5.5 3. Moderate pulmonary hypertension 4. History of TIA 5. History of COPD: Stable 6. History of diastolic congestive heart failure: stable 7. Acute kidney injury: Likely related to diuretics. She did receive 1 dose of Lasix yesterday. Repeat labs tomorrow. 8. Constipation: Lactulose will be given 9. Acute blood loss anemia secondary to expected postop anemia and evidence of iron deficiency anemia. Patient will receive 1 dose of IV Venofer care as well as was started on ferrous sulfate 325 g twice a day. Patient also was educated to stay on a stool softener at home. GI prophylaxis Protonix and DVT prophylaxis subcu heparin Patient is medically stable for discharge. She is to follow up with Dr. Hager in 1 week. Check CBC in 1 week I performed an examination of the patient and discussed their management with the physician Replanting Machine Operator. I have reviewed the Physician Replanting Machine Operator's notes and agree with the documented findings and plan of care
--- NOTE | 2016-07-29 11:57 | P.PN ---
Subjective Principal diagnosis: Mitral valve replacement This is a 56-year-old female with history of severe mitral valve regurgitation with evidence of rheumatic features. She underwent mitral valve replacement. Patient was seen and examined this morning, in normal sinus rhythm with occasional PVCs. Complaining this morning of mild shortness of breath. She did ambulate in the hallway today with cardiac rehab and did quite well. Blood pressure this morning 112/72 with a heart rate in the 80s. 97% on room air. Sodium 132, potassium 4.3, BUN 19, creatinine 0.8. Objective - Vital Signs Vital signs: Vital Signs Temp 98.1 F 07/29/16 11:29 Pulse 97 07/29/16 11:29 Resp 18 07/29/16 11:29 BP 112/73 07/29/16 11:29 Pulse Ox 97 07/29/16 11:29 Intake & Output 07/28/16 07/29/16 07/29/16 18:59 06:59 18:59 Intake Total 500 240 240 Balance 500 240 240 Weight 84.3 kg Intake: Oral 500 240 240 Other: Voiding Method Toilet Toilet # Voids 1 ABP, PAP, CO, CI - Last Documented Arterial Blood Pressure 124/69 Pulmonary Artery Pressure 43/28 Cardiac Output 6 Cardiac Index 3.2 - Exam PHYSICAL EXAMINATION: HEENT: Head is atraumatic, normocephalic. Pupils equal, round. Neck is supple. There is no elevated jugular venous pressure. HEART EXAMINATION: Heart S1, S2 normal. No murmur or gallop heard. CHEST EXAMINATION: Lungs are clear to auscultation and precussion. No chest wall tenderness is noted on palpation or with deep breathing. ABDOMEN: Soft, nontender. Bowel sounds are heard. No organomegaly noted. EXTREMITIES: 2+ peripheral pulses with no evidence of peripheral edema and no calf tenderness noted]. NEUROLOGIC [patient is awake, alert and oriented -3.] . - Labs CBC & Chem 7: 07/28/16 06:07/29/16 06:09 Labs: Abnormal Lab Results - Last 24 Hours (Table) 07/28/16 07/28/16 07/28/16 Range/Units 06:06 11:54 20:39 Sodium (137-145) mmol/L BUN (7-17) mg/dL POC Glucose (mg/dL) 101 H 181 H (75-99) mg/dL Iron 12 L (37-170) ug/dL % Saturation 4.1 L (20-50) % Total Protein (6.3-8.2) g/dL Albumin (3.5-5.0) g/dL 06/05/17 Range/Units 06:09 Sodium 132 L (137-145) mmol/L BUN 19 H (7-17) mg/dL POC Glucose (mg/dL) (75-99) mg/dL Iron (37-170) ug/dL % Saturation (20-50) % Total Protein 5.7 L (6.3-8.2) g/dL Albumin 2.8 L (3.5-5.0) g/dL Assessment and Plan (1) Bariatric surgery status Status: Chronic (2) COPD (chronic obstructive pulmonary disease) Status: Chronic (3) Hypertension Status: Chronic Plan: From cardiology's perspective, we will continue the patient on her current medications. Arrangements are being made for possible discharge home today. We will make her a follow-up appointment with Dr. Pena in the office in 3 weeks. DNP note has been reviewed, I agree with a documented findings and plan of care. Patient was seen and examined.
[2016-07-29 12:08] LABS: Glucose,Whole Blood 104 mg/dL (75-99)
--- NOTE | 2016-07-29 12:08 | P.PN ---
Progress Note - Text CV Surgery Nursing Principal diagnosis: Severe mitral valve regurgitation with evidence of rheumatic features. Moderate pulmonary hypertension. Mild tricuspid valve regurgitation. Moderate left ventricular dysfunction. Mildly dilated ascending aorta. Chronic obstructive pulmonary disease with tobacco abuse. History of cerebral vascular accident and transient ischemic attack. Diabetes mellitus. Fibromyalgia. Gastroesophageal reflux disease with history of Hernandez's esophagitis. Rheumatic mitral valve disorder. POD #4 Chordal preserving mitral valve replacement using a 29 mm porcine bioprosthesis, Mosaic. Exclusion of the left atrial appendage using a 50 mm AtriClip. Intraoperative transesophageal echocardiogram and epi-aortic scanning. Patient awake and alert, no distress noted, she is complaining of generalized weakness. She is sitting up to the bedside chair eating breakfast. Vital Signs: Afebrile Vital Signs - 24 hr 07/28/16 07/28/16 07/28/16 09:00 09:13 12:00 Temperature 97.6 F Pulse Rate 86 Pulse Rate [ 93 Bilateral Dorsalis Pedis] Pulse Rate [ 92 94 Office Machine Embossograph Operator ] Respiratory 17 16 Rate Blood Pressure 115/68 112/72 [Left Arm] O2 Sat by Pulse 97 97 Oximetry 07/28/16 07/28/16 07/28/16 13:19 13:30 16:00 Temperature Pulse Rate 88 88 Pulse Rate [ 90 Bilateral Dorsalis Pedis] Pulse Rate [ 94 Office Machine Embossograph Operator ] Respiratory 16 Rate Blood Pressure [Left Arm] O2 Sat by Pulse Oximetry 07/28/16 07/28/16 07/28/16 16:55 18:13 20:00 Temperature 97.8 F Pulse Rate 92 Pulse Rate [ Bilateral Dorsalis Pedis] Pulse Rate [ 95 90 Office Machine Embossograph Operator ] Respiratory 16 16 18 Rate Blood Pressure 117/59 105/72 [Left Arm] O2 Sat by Pulse 96 98 Oximetry 07/28/16 07/28/16 07/29/16 20:06 20:16 00:00 Temperature 97.1 F L Pulse Rate 80 80 Pulse Rate [ Bilateral Dorsalis Pedis] Pulse Rate [ 95 Office Machine Embossograph Operator ] Respiratory 18 Rate Blood Pressure 108/69 [Left Arm] O2 Sat by Pulse 98 Oximetry 07/29/16 07/29/16 07/29/16 04:00 08:02 08:08 Temperature 98.0 F Pulse Rate 96 92 Pulse Rate [ Bilateral Dorsalis Pedis] Pulse Rate [ 97 Office Machine Embossograph Operator ] Respiratory 16 Rate Blood Pressure 112/77 [Left Arm] O2 Sat by Pulse 93 L Oximetry Labs: [facility] 07/29/16 06:09 Sodium 132 L Potassium 4.3 Chloride 100 Carbon Dioxide 23 BUN 19 H Creatinine 0.83 Glucose 86 Calcium 8.4 Liver Function 07/29/16 Range/Units 06:09 Total Bilirubin 0.8 (0.2-1.3) mg/dL AST 27 (14-36) U/L ALT 22 (9-52) U/L Alkaline Phosphatase 115 (38-126) U/L Albumin 2.8 L (3.5-5.0) g/dL Lungs: Essentially clear throughout, few scattered crackles to her bilateral bases. Respirations are symmetrical and unlabored. O2 sat: 93% on room air. I/S: 1000 mL, reviewed with the patient important of using her incentive spirometry every hour while awake. Patient did give a good return demonstration on her incentive spirometry. We also discussed the importance of using her incentive spirometry at home postdischarge. Heart: S1S2, regular rhythm and rate, negative for S3, gallop or murmur. Remote telemetry showing normal sinus rhythm heart rate 99. Sternum stable, chest incision clean with Dermabond dressing clean and dry. Heart hugger in place, patient is demonstrating appropriate use of her heart hugger. Atrial and ventricular epicardial pacemaker wires intact and grounded. Knee-high KELI hose and sequential compression devices in place to her bilateral lower extremities. Abdomen: Soft, nontender. Positive bowel sounds present in all 4 quadrants. CBGs: 86-181 mg/dL in the last 24 hours. U/O: Adequate. 24 hr Total: Intake & Output 07/27/16 07/28/16 07/29/16 07/30/16 06:59 06:59 06:59 06:59 Intake Total 476 760 740 Output Total 130 67 Balance 346 693 740 Weight 81.8 kg 84.1 kg 84.3 kg Active Medications Albuterol/Ipratropium (Duoneb 0.5 Mg-3 Mg/3 Ml Soln) 3 ml INHALATION RT-Q2H PRN PRN Reason: Shortness Of Breath Or Wheezing Albuterol/Ipratropium (Duoneb 0.5 Mg-3 Mg/3 Ml Soln) 3 ml INHALATION RT-QID OMAR Last Admin: 07/29/16 08:01 Dose: 3 ml Aspirin (Aspirin) 325 mg PO DAILY [facility] Last Admin: 07/28/16 11:13 Dose: 325 mg Atorvastatin Calcium (Lipitor) 40 mg PO DAILY [facility] Last Admin: 07/28/16 11:14 Dose: 40 mg Benzocaine/Menthol (Cepacol Lozenge) 1 each MUCOUS MEM Q2H PRN PRN Reason: Sore Throat Bisacodyl (Dulcolax) 10 mg RECTAL DAILY PRN PRN Reason: Constipation Budesonide/Formoterol Fumarate (Symbicort 160-4.5 Mcg Inhaler) 2 puff INHALATION RT-BID [facility] Last Admin: 07/29/16 08:00 Dose: 2 puff Cholecalciferol (Vitamin D3) 2,000 unit PO DAILY@1200 [facility] Last Admin: 07/28/16 11:55 Dose: 2,000 unit Clopidogrel Bisulfate (Plavix) 75 mg PO DAILY [facility] Last Admin: 07/28/16 11:55 Dose: 75 mg Heparin Sodium (Porcine) (Heparin) 5,000 unit SQ Q8HR [facility] Last Admin: 07/28/16 22:51 Dose: 5,000 unit Insulin Human Lispro (Humalog) [address] [facility] PRN Reason: Protocol Last Admin: 07/29/16 07:57 Dose: Not Given Ketorolac Tromethamine (Toradol) 15 mg IVP Q6HR [facility] Stop: 07/30/16 10:01 Last Admin: 07/29/16 06:34 Dose: Not Given Magnesium Hydroxide (Milk Of Magnesia) 2,400 mg PO BID PRN PRN Reason: Constipation Metoprolol Tartrate (Lopressor) 25 mg PO TID [facility] Last Admin: 07/28/16 22:50 Dose: 25 mg Miscellaneous Information (Magnesium Per Protocol) 1 each MISCELLANE DAILY PRN ; Protocol PRN Reason: Per Protocol Miscellaneous Information (Phosphorus Per Protocol) 1 each MISCELLANE DAILY PRN ; Protocol PRN Reason: Per Protocol Miscellaneous Information (Potassium Per Protocol) 1 each MISCELLANE DAILY PRN ; Protocol PRN Reason: Per Protocol Multivitamins (Theragran) 1 each PO DAILY@1200 [facility] Last Admin: 07/28/16 11:55 Dose: 1 each Ondansetron HCl (Zofran) 4 mg IVP Q6HR PRN PRN Reason: Nausea And Vomiting Oxycodone/Acetaminophen (Percocet 7.5-325) 1 each PO Q4HR PRN PRN Reason: Pain Last Admin: 07/25/16 18:06 Dose: 1 each Oxycodone/Acetaminophen (Percocet 7.5-325) 2 each PO Q4HR PRN PRN Reason: Pain Last Admin: 07/28/16 22:57 Dose: 2 each Pantoprazole Sodium (Protonix) 40 mg PO AC-BRKFST [facility] Last Admin: 07/29/16 06:31 Dose: 40 mg Senna/Docusate Sodium (Senokot-S) 2 each PO HS [facility] Last Admin: 07/28/16 22:49 Dose: 2 each Sodium Chloride (Saline Flush) 10 ml IV BID [facility] Last Admin: 07/28/16 22:50 Dose: 10 ml Sodium Chloride (Saline Flush) 10 ml IV Q12HR [facility] Last Admin: 07/29/16 06:29 Dose: Not Given Venlafaxine HCl (Effexor Xr) 150 mg PO BID [facility] Last Admin: 07/28/16 22:50 Dose: 150 mg Vitamin A (Vitamin A) 10,000 unit PO HS [facility] Last Admin: 07/28/16 22:50 Dose: 10,000 unit Plan: 1. Continue aspirin, Lipitor, Plavix, heparin subcu, and metoprolol. 2. Insulin drip/diabetic management per internal medicine service. 3. Encourage incentive spirometry use every hour while awake. 4. Increase activity, ambulate in hallway. Physical therapy to follow. 5. GI/DVT prophylaxis. 6. Monitor daily labs, x-ray. 7. We will discontinue A/V pacemaker wires this morning. 8. Discharge planning in place, discharge home today. Epicardial pacemaker wires removed without incident. The patient will be on bed rest for 1 hour.
--- NOTE | 2016-07-29 13:42 | P.DS ---
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 Consult: post cardiac surgery Do you want consulting provider notified?: Yes Consult Physician Routine Consulting Provider: Nael Hager Consult Reason/Comments: medical management Do you want consulting provider notified?: Yes Consult Physician Routine Consulting Provider: Juan José Pena Consult Reason/Comments: Logistics Analytics Manager Consult: post cardiac surgery Do you want consulting provider notified?: Yes Primary care physician: [facility] Course: FINAL DIAGNOSIS: 1.[ Severe mitral valve regurgitation with, rheumatic mitral valve disorder] 2.[ Moderate pulmonary hypertension] 3.[ Mild tricuspid valve regurgitation] 4.[ Mildly dilated ascending aorta chronic obstructive pulmonary disease with tobacco abuse] 5.[ History of cerebrovascular accident and transient ischemic attack] 6.[ Diabetes mellitus, type II] 7.[ Hypertension] 8.[ Congestive heart failure, chronic with diastolic dysfunction] 9.[ Hyperlipidemia] 10.[ 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 Nael Hager on an outpatient basis. On 06/26/2016 the patient presented to the emergency department here at [facility] with complaints of shortness of breath and intermittent confusion. Subsequently the patient ended up leaving the hospital at that time AGAINST MEDICAL ADVICE. She was seen by Dr. Lissette Pena from cardiology on an outpatient basis. Due to above mentioned complaints the patient underwent an elective cardiac catheterization and transesophageal echocardiogram on 07/02/2016. Her cardiac catheterization results showed severe mitral regurgitation secondary to partial flail of the anterior mitral leaflet, and a mild to moderate lesion within the left anterior descending coronary artery of around 40% stenosis. Also during heart catheterization a left ventriculogram was completed which showed her to have an ejection fraction of 50-55% with 3+ mitral regurgitation. The transesophageal echocardiogram results demonstrated severe posteriorly directed mitral regurgitation secondary to flail anterior mitral leaflets, severe left atrial enlargement, and a normal left ventricular size and systolic function with an ejection fraction of 60%. The above-mentioned studies were reviewed with Dr. Falk from cardiothoracic surgery and subsequently with the patient. Due to the results of the above-mentioned studies elective mitral valve replacement was discussed with the patient.] HOSPITAL COURSE:[ The patient was admitted to the hospital and after obtaining consent she was taken to the operating room where Dr. Falk performed an elective chordal preserving mitral valve replacement using a #29 mm porcine bioprosthesis, Mosaic, exclusion of her left atrial appendage using a #50 mm Atriclip, and an intraoperative transesophageal echocardiogram and epi-aortic scanning. The patient was subsequently transferred to the cardiovascular intensive care unit where she was recovered, monitored hemodynamically, and where she progressed to cardiac rehabilitation phase 1. The patient was extubated within the 6 hours postoperatively and recovered without any postoperative complications. The patient was subsequently transferred to [address] [place] [address] for further monitoring and rehabilitation.] COMPLICATIONS: [There were no postoperative, complications.] CONSULTATIONS: 1.[ Dr. Lissette Pena for cardiology management] 2.[ Dr. Orozco for pulmonary and ventilator management] 3.[ Dr. Hager for medical management] DISCHARGE INSTRUCTIONS: 1. No driving for 4 weeks, or until physician gives their ok. 2. The patient should sleep in their own bed, no medical bed needed. 3. Stairs are not an issue. If the bedroom is upstairs, it is advised that the patient go up at night and down in the morning for the first week. Go slowly, using handrail and take 1 step at a time. 4. KELI hose are to be worn for 30 days or until physician discontinues. 5. Heart hugger is to be worn 100% of the time until physician discontinues.( except when showering) 6. No lifting, pushing, or pulling more than 10 pounds for 12 weeks. The physician will advise of any restriction changes. 7. The patient is expected to continue the prescribed walking program. 8. Continue pain control per as needed orders. 9. Continue with incentive spirometry and splinting/heart hugger until otherwise directed by the physician. 10. Must shower daily using liquid antibacterial soap and a separate white washcloth for each individual incision. 11. Routine sternal incision care thereafter no ointments, lotions or powders on the incisions. 12. Please notify surgeon/nurse practitioner for temperature greater than 10 1 F or purulent drainage from incisions HOME HEALTH SERVICES TO PROVIDE: RN SKILLED HOME CARE SERVICES FOR POST-OP SURGICAL PATIENTS WITH THE FOLLOWING: Coronary Artery Bypass Surgery (CABG), Mitral Valve Replacement/ Repair ( MVR), Aortic Valve Replacement/Repair (AVR) RN TO CONTINUE EDUCATION FROM ``ROAD TO A HEALTH HEART PATIENT EDUCATION MANUAL (GIVEN TO PATIENT IN THE HOSPITAL) MEDICATION RECONCILIATION WITH EDUCATION NEEDED ON FIRST HOME VISIT EMPHASIZE IMPORTANCE OF WEARING BREAST SUPPORT/HEART HUGGER ENCOURAGE USE OF INCENTIVE SPIROMETER 10 X EVERY HOUR WHILE AWAKE ENCOURAGE UTILIZATION OF LOWER EXTREMITY COMPRESSION STOCKINGS/KELI HOSE and ELEVATE LEGS ABOVE LEVEL OF HEART WHILE AT REST. ENCOURAGE AMBULATION 3-5x/day INCREASING TOLERATES, WHILE AVOID EXTREMES IN TEMPERATURE FREQUENCY: RN TO OPEN THE PATIENT WITHIN 24 HOURS OF DISCHARGE FROM THE HOSPITAL WITH TELEHEALTH INSTALLED AT [facility], RN TO VISIT 2-3 X A WEEK FOR 4 WEEKS ESTABLISHED BY PATIENT NEEDS. REMOVAL OF SUTURES: NURSING SERVICES TO REMOVE SUTURES TWO WEEKS POST SURGICAL DATE 08/07/2016. If any questions regarding suture removal please call the office at [phone] LABORATORY: CBC, CMP TO BE DRAWN ON THE THIRD DAY HOME, 08/01/2016 (RAN STAT ) FAX RESULTS TO [phone]. TELEHEALTH PARAMETERS: WEIGHT: NOTIFY MD OF WEIGHT GAIN OF 2 LBS IN 24 HOURS OR 5 LBS IN ONE WEEK HR: NOTIFY MD OF HR <55 BPM OR HR>100 BPM BP: NOTIFY MD IF BP <90/55 OR BP>140/100 O2 SAT: NOTIFY MD IF PO2<93% ON ROOM AIR SEND TELEHEALTH REPORT TO ROOFING APPRENTICE AND CARDIOVASCULAR SURGEON THE FIRST WEEK OF CARE AND THEN BI-WEEKLY. PLEASE ADDITIONALLY COMMUNICATE ANY ABNORMALS AND NEW FINDINGS TO THE SURGEONS OFFICE. Plan - Discharge Summary New Discharge Prescriptions: New Aspirin 325 mg PO DAILY #30 tab Atorvastatin [Lipitor] 40 mg PO DAILY #30 tab Clopidogrel [Plavix] 75 mg PO DAILY #30 tab Metoprolol Tartrate [Lopressor] 25 mg PO TID #90 tab Pantoprazole [Protonix] 40 mg PO AC-BRKFST #30 tab Sennosides-Docusate Sodium [Senokot-S] 2 each PO HS tab Continue Albuterol Nebulized [Ventolin Nebulized] 2.5 mg INHALATION RT-QID Venlafaxine HCl [Effexor XR] 150 mg PO BID Tiotropium [place] [Spiriva] 1 cap INHALATION RT-DAILY Baclofen 10 mg PO TID Albuterol Sulfate [Proair Hfa] 2 puff INHALATION RT-Q6H PRN PRN Reason: Shortness Of Breath Budesonide-Formot 160-4.5 Mcg [Symbicort 160-4.5 Mcg Inhaler] 2 puff INHALATION RT-BID Cholecalciferol [Vitamin D3] 2,000 unit PO HS Furosemide [Lasix] 40 mg PO DAILY #30 tablet Potassium Chloride ER [K-Dur 20] 20 meq PO DAILY #30 tab Multivitamins, Thera [Multivitamin (formulary)] 1 tab PO HS Vitamin A 8,000 unit PO HS oxyCODONE-APAP 10-325MG [Percocet 10-325 mg] 1 tab PO Q6HR #120 Discontinued Aspirin [Adult Low Dose Aspirin EC] 81 mg PO DAILY Atenolol [Tenormin] 25 mg PO DAILY 90 Days Temazepam [Restoril] 15 mg PO HS PRN PRN Reason: sleep Omeprazole 40 mg PO QAM Discharge Medication List Albuterol Nebulized [Ventolin Nebulized] 2.5 mg INHALATION RT-QID 07/07/13 [ History] Venlafaxine HCl [Effexor XR] 150 mg PO BID 01/12/15 [History] Tiotropium [place] [Spiriva] 1 cap INHALATION RT-DAILY 03/09/15 [History] Baclofen 10 mg PO TID 05/31/15 [History] Albuterol Sulfate [Proair Hfa] 2 puff INHALATION RT-Q6H PRN 08/09/15 [History] Budesonide-Formot 160-4.5 Mcg [Symbicort 160-4.5 Mcg Inhaler] 2 puff INHALATION RT-BID 08/20/15 [History] Cholecalciferol [Vitamin D3] 2,000 unit PO HS 06/10/16 [History] Furosemide [Lasix] 40 mg PO DAILY #30 tablet 06/13/16 [Rx] Potassium Chloride ER [K-Dur 20] 20 meq PO DAILY #30 tab 06/13/16 [Rx] Multivitamins, Thera [Multivitamin (formulary)] 1 tab PO HS 06/28/16 [History] Vitamin A 8,000 unit PO HS 07/02/16 [History] Aspirin 325 mg PO DAILY #30 tab 07/29/16 [Rx] Atorvastatin [Lipitor] 40 mg PO DAILY #30 tab 07/29/16 [Rx] Clopidogrel [Plavix] 75 mg PO DAILY #30 tab 07/29/16 [Rx] Metoprolol Tartrate [Lopressor] 25 mg PO TID #90 tab 07/29/16 [Rx] Pantoprazole [Protonix] 40 mg PO AC-BRKFST #30 tab 07/29/16 [Rx] Sennosides-Docusate Sodium [Senokot-S] 2 each PO HS tab 07/29/16 [Rx] oxyCODONE-APAP 10-325MG [Percocet 10-325 mg] 1 tab PO Q6HR #120 07/29/16 [Rx] Follow up Appointment(s)/Referral(s): Renetta Mar NPC [Nurse Practitioner] - 08/01/16 12:00 pm Tyron Falk MD [STAFF PHYSICIAN] - 08/23/16 10:00 am Cullen Orozco DO [Doctor of Osteopathic Medicine] - 08/09/16 10:00 am [facility], [NON-STAFF] - Nael Hager MD [Primary Care Provider] - 08/12/16 1:30 pm Juan José Pena MD [STAFF PHYSICIAN] - 08/13/16 3:45 pm Ambulatory/Diagnostic Orders: Complete Blood Count w/diff [LAB.AMB] Time Frame: 3 Days, Location: Determined By Patient Comprehensive Metabolic Panel [LAB.AMB] Time Frame: 3 Days, Location: Determined By Patient Activity/Diet/Wound Care/Special Instructions: DISCHARGE INSTRUCTIONS: 1. No driving for 4 weeks, or until physician gives their ok. 2. The patient should sleep in their own bed, no medical bed needed. 3. Stairs are not an issue. If the bedroom is upstairs, it is advised that the patient go up at night and down in the morning for the first week. Go slowly, using handrail and take 1 step at a time. 4. KELI hose are to be worn for 30 days or until physician discontinues. 5. Heart hugger is to be worn 100% of the time until physician discontinues.( except when showering) 6. No lifting, pushing, or pulling more than 10 pounds for 12 weeks. The physician will advise of any restriction changes. 7. The patient is expected to continue the prescribed walking program. 8. Continue pain control per as needed orders. 9. Continue with incentive spirometry and splinting/heart hugger until otherwise directed by the physician. 10. Must shower daily using liquid antibacterial soap and a separate white washcloth for each individual incision. 11. Routine sternal incision care thereafter no ointments, lotions or powders on the incisions. 12. Please notify surgeon/nurse practitioner for temperature greater than 10 1 F or purulent drainage from incisions HOME HEALTH SERVICES TO PROVIDE: RN SKILLED HOME CARE SERVICES FOR POST-OP SURGICAL PATIENTS WITH THE FOLLOWING: Coronary Artery Bypass Surgery (CABG), Mitral Valve Replacement/ Repair ( MVR), Aortic Valve Replacement/Repair (AVR) RN TO CONTINUE EDUCATION FROM ``ROAD TO A HEALTH HEART PATIENT EDUCATION MANUAL (GIVEN TO PATIENT IN THE HOSPITAL) MEDICATION RECONCILIATION WITH EDUCATION NEEDED ON FIRST HOME VISIT EMPHASIZE IMPORTANCE OF WEARING BREAST SUPPORT/HEART HUGGER ENCOURAGE USE OF INCENTIVE SPIROMETER 10 X EVERY HOUR WHILE AWAKE ENCOURAGE UTILIZATION OF LOWER EXTREMITY COMPRESSION STOCKINGS/KELI HOSE and ELEVATE LEGS ABOVE LEVEL OF HEART WHILE AT REST. ENCOURAGE AMBULATION 3-5x/day INCREASING TOLERATES, WHILE AVOID EXTREMES IN TEMPERATURE FREQUENCY: RN TO OPEN THE PATIENT WITHIN 24 HOURS OF DISCHARGE FROM THE HOSPITAL WITH TELEHEALTH INSTALLED AT [facility], RN TO VISIT 2-3 X A WEEK FOR 4 WEEKS ESTABLISHED BY PATIENT NEEDS. REMOVAL OF SUTURES: NURSING SERVICES TO REMOVE SUTURES TWO WEEKS POST SURGICAL DATE 08/07/2016. If any questions regarding suture removal please call the office at [phone] LABORATORY: CBC, CMP TO BE DRAWN ON THE THIRD DAY HOME, 08/01/2016 (RAN STAT ) FAX RESULTS TO [phone]. TELEHEALTH PARAMETERS: WEIGHT: NOTIFY MD OF WEIGHT GAIN OF 2 LBS IN 24 HOURS OR 5 LBS IN ONE WEEK HR: NOTIFY MD OF HR <55 BPM OR HR>100 BPM BP: NOTIFY MD IF BP <90/55 OR BP>140/100 O2 SAT: NOTIFY MD IF PO2<93% ON ROOM AIR SEND TELEHEALTH REPORT TO ROOFING APPRENTICE AND CARDIOVASCULAR SURGEON THE FIRST WEEK OF CARE AND THEN BI-WEEKLY. PLEASE ADDITIONALLY COMMUNICATE ANY ABNORMALS AND NEW FINDINGS TO THE SURGEONS OFFICE.
--- NOTE | 2016-07-29 15:36 | P.PN ---
Subjective 56-year-old female patient with status post mitral valve replacement for severe mitral regurgitation. The patient is still recovering from her surgery. She is doing extremely well. She is on room air oxygen and her pulse ox is above 90 %. No respiratory distress. Sternum stable clean and intact. No chest pain. No nausea vomiting or any abdominal pain. She is very well-known to me. She has history of hypertension, diabetes mellitus, previous gastric bypass surgery for obesity, and mild obstructive sleep apnea. She is also known to have an underlying CHF. He is using the incentive spirometer. She has no ascitic complaints for the time being. Objective - Vital Signs Vital signs: Vital Signs Temp 98.1 F 07/29/16 11:29 Pulse 97 07/29/16 11:29 Resp 18 07/29/16 11:29 BP 112/73 07/29/16 11:29 Pulse Ox 97 07/29/16 11:29 Intake & Output 07/28/16 07/29/16 07/29/16 18:59 06:59 18:59 Intake Total 500 240 476 Balance 500 240 476 Weight 84.3 kg Intake: Oral 500 240 476 Other: Voiding Method Toilet Toilet # Voids 1 1 ABP, PAP, CO, CI - Last Documented Arterial Blood Pressure 124/69 Pulmonary Artery Pressure 43/28 Cardiac Output 6 Cardiac Index 3.2 - Exam Head exam was generally normal. There was no scleral icterus or corneal arcus. Mucous membranes were moist.Neck was supple and without jugular venous distension, thyromegaly, or carotid bruits. Carotids were easily palpable bilaterally. There was no adenopathy. Lung sounds are diminished in lung bases bilaterally along with some few bibasilar crackles. Heart sounds are regular, positive S1-S2, sternum stable clean and intact.Abdominal exam revealed normal bowel sounds. The abdomen was soft, non-tender, and without masses, organomegaly , or appreciable enlargement of the abdominal aorta.Examination of the extremities revealed easily palpable radial, femoral and pedal pulses. There was no cyanosis, clubbing or edema. - Labs CBC & Chem 7: 07/28/16 06:06 07/29/16 06:09 Labs: Abnormal Lab Results - Last 24 Hours (Table) 07/28/16 07/29/16 07/29/16 Range/Units 20:39 06:09 12:07 Sodium 132 L (137-145) mmol/L BUN 19 H (7-17) mg/dL POC Glucose (mg/dL) 181 H 104 H (75-99) mg/dL Total Protein 5.7 L (6.3-8.2) g/dL Albumin 2.8 L (3.5-5.0) g/dL Assessment and Plan Plan: Assessment 1 status post mitral valve replacement for severe mitral regurgitation. Patient is recovering well from her surgery. The patient had no major respiratory difficulties postop. The patient was extubated without any major difficulties. Most recent chest x-ray showing some postsurgical findings. 2 CVA history of 3 COPD, history of 4 CHF with diastolic dysfunction 5 hypertension 6 previous history of gastric bypass surgery 7 diabetes mellitus 8 GERD Plan Patient is doing well. The chest x-ray from yesterday shows atelectatic changes and left upper lobe and some improved aeration of the left lung base. Nevertheless the patient is breathing comfortably without any major it further distress. Discharge planning is in progress. The patient is hemodynamically stable.
--- NOTE | 2016-07-30 13:48 | CC ---
ADDENDUM: DATE OF SERVICE: I have used moderate conscious sedation on this patient, a total sedation time of 15 minutes.
[2016-07-31 14:18] LABS: ABG Base Excess -2.3 mmol/L; ABG HCO3 21 mmol/L (21-25); ABG PCO2 32 mmHg (35-45); ABG PH 7.43 (7.35-7.45); ABG PO2 325 mmHg (83-108); ABG TCO2 22 mmol/L (19-24)
[2016-07-31 14:19] LABS: ABG Base Excess -1.4 mmol/L; ABG HCO3 22 mmol/L (21-25); ABG Oxygen Saturation 99.8 % (94-97); ABG PCO2 36 mmHg (35-45); ABG PH 7.41 (7.35-7.45); ABG PO2 218 mmHg (83-108); ABG TCO2 24 mmol/L (19-24)
[2016-07-31 14:19] LABS: ABG Oxygen Saturation 99.9 % (94-97)
[2016-07-31 14:20] LABS: ABG Base Excess 0.4 mmol/L; ABG HCO3 24 mmol/L (21-25); ABG Oxygen Saturation 99.9 % (94-97); ABG PCO2 38 mmHg (35-45); ABG PH 7.42 (7.35-7.45); ABG PO2 258 mmHg (83-108); ABG TCO2 25 mmol/L (19-24)
[2016-07-31 14:21] LABS: ABG Base Excess -1.3 mmol/L; ABG HCO3 25 mmol/L (21-25); ABG Oxygen Saturation 99.7 % (94-97); ABG PCO2 52 mmHg (35-45); ABG PH 7.31 (7.35-7.45); ABG PO2 210 mmHg (83-108); ABG TCO2 26 mmol/L (19-24)
[2016-07-31 14:22] LABS: ABG Base Excess -1.6 mmol/L; ABG HCO3 23 mmol/L (21-25); ABG PCO2 39 mmHg (35-45); ABG PH 7.38 (7.35-7.45); ABG PO2 393 mmHg (83-108); ABG TCO2 24 mmol/L (19-24)
[2016-07-31 14:23] LABS: ABG HCO3 22 mmol/L (21-25); ABG Oxygen Saturation 98.9 % (94-97); ABG PCO2 34 mmHg (35-45); ABG PH 7.44 (7.35-7.45); ABG PO2 123 mmHg (83-108); ABG TCO2 23 mmol/L (19-24)
== END 2016-07-29 16:53 | disposition home health service (06) | DRG 220 ==
LOC: 2ORMAIN 05:45 → 6ICU 12:41 → 6SEL 07-26 16:17
PROVIDERS: ADMIT Surgery; ATTEND Surgery
PROC: 02L70CK Occlusion of Left Atrial Appendage with Extraluminal Device, Open Approach (ICD-10-PCS; 2016-07-24)
PROC: B246ZZ4 Ultrasonography of Right and Left Heart, Transesophageal (ICD-10-PCS; 2016-07-24)
PROC: 5A1221Z Performance of Cardiac Output, Continuous (ICD-10-PCS; 2016-07-24)
PROC: 02RG08Z Replacement of Mitral Valve with Zooplastic Tissue, Open Approach (ICD-10-PCS; principal; 2016-07-24 08:00)
DX: I05.1 Rheumatic mitral insufficiency (principal); I50.32 Chronic diastolic (congestive) heart failure; N17.9 Acute kidney failure, unspecified; I11.0 Hypertensive heart disease with heart failure; I95.9 Hypotension, unspecified; E11.40 Type 2 diabetes mellitus with diabetic neuropathy, unspecified; I69.354 Hemiplegia and hemiparesis following cerebral infarction affecting left non-dominant side; I27.2 Other secondary pulmonary hypertension; J44.9 Chronic obstructive pulmonary disease, unspecified; G47.33 Obstructive sleep apnea (adult) (pediatric); D50.9 Iron deficiency anemia, unspecified; I25.10 Atherosclerotic heart disease of native coronary artery without angina pectoris; I36.1 Nonrheumatic tricuspid (valve) insufficiency; I77.819 Aortic ectasia, unspecified site; M54.2 Cervicalgia; M54.9 Dorsalgia, unspecified; I49.3 Ventricular premature depolarization; E78.5 Hyperlipidemia, unspecified; K59.00 Constipation, unspecified; M79.7 Fibromyalgia; M10.9 Gout, unspecified; M19.90 Unspecified osteoarthritis, unspecified site; G89.29 Other chronic pain; F32.9 Major depressive disorder, single episode, unspecified; R53.1 Weakness; T50.1X5A Adverse effect of loop [high-ceiling] diuretics, initial encounter; K21.9 Gastro-esophageal reflux disease without esophagitis; K22.70 Barrett's esophagus without dysplasia; Z79.899 Other long term (current) drug therapy; Z87.891 Personal history of nicotine dependence; Z91.018 Allergy to other foods; Z90.49 Acquired absence of other specified parts of digestive tract; Z98.51 Tubal ligation status; Z98.1 Arthrodesis status; Z96.60 Presence of unspecified orthopedic joint implant; Z79.82 Long term (current) use of aspirin; Z82.49 Family history of ischemic heart disease and other diseases of the circulatory system; Z98.84 Bariatric surgery status; Z79.891 Long term (current) use of opiate analgesic; Z79.51 Long term (current) use of inhaled steroids; Z87.01 Personal history of pneumonia (recurrent); Z86.39 Personal history of other endocrine, nutritional and metabolic disease; Z86.69 Personal history of other diseases of the nervous system and sense organs; Z86.19 Personal history of other infectious and parasitic diseases; Z87.09 Personal history of other diseases of the respiratory system
CPT/HCPCS: 36620; 71010; 71020; 80048; 80053; 82330; 82805; 83036; 83540; 83550; 83735; 85025; 85520; 85610; 85730; 86850; 86891; 86900; 86901; 86920; 88305; 94002; 94640

== ENCOUNTER → 2016-08-15 | Outpatient (CLI) | payer MEDICARE ==
[2016-08-15 11:16] VITALS: BP 93/65; PULSE 96; RESP 15; TEMP 98.2; BMI 26.0
[2016-08-15 12:55] LABS: ALT 39 U/L (9-52); AST 47 U/L (14-36); Alkaline Phosphatase 197 U/L (38-126); Anion Gap 10 mmol/L; Blood Urea Nitrogen 20 mg/dL (7-17); Calcium 8.7 mg/dL (8.4-10.2); Carbon Dioxide 27 mmol/L (22-30); Chloride 100 mmol/L (98-107); Cholesterol 81 mg/dL (<200); Glucose 88 mg/dL (74-99); HDL Cholesterol 32 mg/dL (40-60); Iron 82 ug/dL (37-170); Non-African American GFR(MDRD) 58 (>60 ml/min/1.73 sqM); Phosphorous 3.7 mg/dL (2.5-4.5); Potassium 4.6 mmol/L (3.5-5.1); Sodium 137 mmol/L (137-145); Total Bilirubin 0.7 mg/dL (0.2-1.3); Triglycerides 169 mg/dL (<150)
[2016-08-15 13:05] LABS: % Iron Saturation 28.2 % (20-50); Prealbumin 11 mg/dL (18-36); Total Iron Binding Capacity 291 ug/dL (265-497)
[2016-08-15 13:52] LABS: INR 1.3 (<1.1); Partial Thromboplastin Time 31.2 sec (22.0-30.0); Prothrombin Time 12.8 sec (9.0-12.0)
[2016-08-15 13:55] LABS: Anisocytosis Marked; CHCM 31.1; HCT 38.4 % (34.0-46.0); HDW 3.13; Hypochromasia Moderate; MCH 30.7 pg (25.0-35.0); MCHC 33.9 g/dL (31.0-37.0); MCV 90.6 fL (80.0-100.0); Macrocytosis Slight; Mean Platelet Volume 7.3; RBC 4.24 m/uL (3.80-5.40); WBC 6.3 k/uL (3.8-10.6)
[2016-08-15 13:59] LABS: RDW 25.4 % (11.5-15.5)
[2016-08-15 14:01] LABS: Vitamin B12 839 pg/mL (239-931)
[2016-08-15 15:58] LABS: Hemoglobin A1C 5.2 % (4.2-6.1)
[2016-08-20 16:17] LABS: Selenium 110 mcg/L (63-160)
--- NOTE | 2016-08-28 18:17 | P.PN ---
Progress Note - Text DATE OF SERVICE: 08/15/2016 CHIEF COMPLAINT: Follow-up gastric bypass. HISTORY OF PRESENT ILLNESS: Kassy Lopez is a 55-year-old female status post gastric bypass on 11/06/2015. She is now 9 months out. Her ideal body weight for a 5' 6" frame is 154 pound. Her highest weight was 278 pounds. Today she comes in weighing 161 pounds. She has lost 117 pounds. Since her last follow-up 3 months ago in April, she has lost another 32 pounds. Body mass index is reduced from 45 down to 26. Total BMI point reduction is 19. Her percent excess weight loss is 94 %. She reports requiring emergent open heart bypass almost 3 weeks ago, 07/24/16. She has just completed cardiac rehab. She reports requiring a valvular replacement. Separately, she is on additional medications which is causing low blood pressure. She denies abdominal pain. She denies any troubles with swallowing. She is pleased with her weight loss. PAST MEDICAL HISTORY: 1. Hernandez esophagus. 2. Gastroesophageal reflux disease, now resolved. 3. Osteoarthritis, now resolved. 4. Diabetes type 2 with gastroparesis, now resolved. 5. Depression. 6. Hypertension, now resolved. 7. Chronic obstructive pulmonary disease, now improved. 8. Prolonged QT interval. 9. History of congestive heart failure. PAST SURGICAL HISTORY: 1. Back surgery x3 including fusion. 2. TENS unit infusion. 3. Neck fusion. 4. Right knee injections. 5. Colonoscopy. 6. Upper endoscopy. 7. Appendectomy. 8. section. 9. Cholecystectomy. 10. Tubal ligation. 11. Status post gastric bypass. 12. Cardiac catheterization. 13. Valvular replacement, 07/24/2016 MEDICATIONS: 1. Percocet. 2. Effexor. 3. Spiriva. 4. Omeprazole. 5. Lopressor 6. Symbicort. 7. Baclofen. 8. Albuterol inhaler. 9. Albuterol nebulizer. 10. Plavix. 11. Lipitor. ALLERGIES: MUSHROOM. FAMILY HISTORY: Denies any Crohn's disease or ulcerative colitis. Denies any lupus within her family. SOCIAL HISTORY: Active tobacco user over 25 years, 1 pack per day and now in remission. REVIEW OF SYSTEMS: CONSTITUTIONAL: Her ideal body weight for a 5' 6" frame is 154 pound. Her highest weight was 278 pounds. Today she comes in weighing 161 pounds. She has lost 117 pounds. Since her last follow-up 3 months ago in April, she has lost another 32 pounds. Body mass index is reduced from 45 down to 26. Total BMI point reduction is 19. Her percent excess weight loss is 94 %. ENDOCRINE: Resolved diabetes type 2. RESPIRATORY: Resolved obstructive sleep apnea. CARDIOVASCULAR: Resolved prolonged QT. Hypertension is now resolved. Slight to moderate reduction in her antidepressant medications. GASTROINTESTINAL: No reports of dumping syndrome. Gastroesophageal reflux disease is completely resolved. HEENT: She had removal of her mandibular tooth abscess. She still has poor dentition and requires extraction of all her teeth. Future dentures are pending at this time. MUSCULOSKELETAL: Reports osteoarthritis of the back including hips. NEURO: No reports of recent stroke or seizure disorder. History of chronic pain. HEMATOLOGIC: No recent DVTs or pulmonary embolisms. PSYCH: History chronic pain including depression. PHYSICAL EXAM: VITAL SIGNS: 5 foot 6, 161 pounds. Body mass is 26.0 Vital Signs Temp 98.2 F 08/15/16 11:12 Pulse 96 08/15/16 11:12 Resp 15 08/15/16 11:12 BP 93/65 08/15/16 11:12 Pulse Ox ABDOMEN: Soft, nontender, nondistended. No palpable incisional hernias. MUSCULOSKELETAL: No clubbing, cyanosis, or edema. GENERAL: Well-developed female in no acute distress. CARDIOVASCULAR: Regular rate, regular rhythm. HEENT: Head atraumatic, normocephalic. Also has a poor dentition. Resolved abscess of the maxillary abscess. CHEST: Nonlabored respirations. Equal bilateral excursions. Has sternal compression device. NECK: Supple without lymphadenopathy. NEURO: No focal or lateralizing signs. PSYCH: Appropriate affect. Alert and oriented to person, place and time. LABS: Laboratory Last Values WBC 6.3 k/uL (3.8-10.6) 08/15/16 12:20 RBC 4.24 m/uL (3.80-5.40) 08/15/16 12:20 Hgb 13.0 gm/dL (11.4-16.0) 08/15/16 12:20 Hct 38.4 % (34.0-46.0) 08/15/16 12:20 MCV 90.6 fL (80.0-100.0) 08/15/16 12:20 MCH 30.7 pg (25.0-35.0) 08/15/16 12:20 MCHC 33.9 g/dL (31.0-37.0) 08/15/16 12:20 RDW 25.4 % (11.5-15.5) H 08/15/16 12:20 Plt Count 276 k/uL (150-450) 08/15/16 12:20 Hypochromasia Moderate 08/15/16 12:20 Anisocytosis Marked 08/15/16 12:20 Macrocytosis Slight 08/15/16 12:20 PT 12.8 sec (9.0-12.0) H 08/15/16 12:20 INR 1.3 (<1.1) 08/15/16 12:20 APTT 31.2 sec (22.0-30.0) H 08/15/16 12:20 Sodium 137 mmol/L (137-145) 08/15/16 12:20 Potassium 4.6 mmol/L (3.5-5.1) 08/15/16 12:20 Chloride 100 mmol/L (98-107) 08/15/16 12:20 Carbon Dioxide 27 mmol/L (22-30) 08/15/16 12:20 Anion Gap 10 mmol/L 08/15/16 12:20 BUN 20 mg/dL (7-17) H 08/15/16 12:20 Creatinine 1.00 mg/dL (0.52-1.04) 08/15/16 12:20 Est GFR (MDRD) Af Amer >60 (>60 ml/min/1.73 sqM) 08/15/16 12:20 Est GFR (MDRD) Non-Af 58 (>60 ml/min/1.73 sqM) 08/15/16 12:20 Glucose 88 mg/dL (74-99) 08/15/16 12:[address] Glu mg/dL 103 mg/dL 08/15/16 12:20 Hemoglobin A1c 5.2 % (4.2-6.1) 08/15/16 12:20 Calcium 8.7 mg/dL (8.4-10.2) 08/15/16 12:20 Phosphorus 3.7 mg/dL (2.5-4.5) 08/15/16 12:20 Magnesium 2.0 mg/dL (1.6-2.3) 08/15/16 12:20 Iron 82 ug/dL (37-170) 08/15/16 12:20 TIBC 291 ug/dL (265-497) 08/15/16 12:20 % Saturation 28.2 % (20-50) 08/15/16 12:20 Ferritin 80 ng/mL (11-264) 08/15/16 12:20 Total Bilirubin 0.7 mg/dL (0.2-1.3) 08/15/16 12:20 AST 47 U/L (14-36) H 08/15/16 12:20 ALT 39 U/L (9-52) 08/15/16 12:20 Alkaline Phosphatase 197 U/L (38-126) H 08/15/16 12:20 Total Protein 7.0 g/dL (6.3-8.2) 08/15/16 12:20 Albumin 3.2 g/dL (3.5-5.0) L 08/15/16 12:20 Prealbumin 11 mg/dL (18-36) L 08/15/16 12:20 Triglycerides 169 mg/dL (<150) H 08/15/16 12:20 Cholesterol 81 mg/dL (<200) 08/15/16 12:20 LDL Cholesterol, Calc 15 mg/dL (0-99) 08/15/16 12:20 HDL Cholesterol 32 mg/dL (40-60) L 08/15/16 12:20 Vitamin A 28 ug/dL (38-106) L 08/15/16 12:20 Vitamin B1 54 ug/L (38-122) 08/15/16 12:20 Vitamin B12 839 pg/mL (239-931) 08/15/16 12:20 Vitamin D 25-Hydroxy 36.0 ng/mL (30.0-100.0) 08/15/16 12:20 Folate 7.01 ng/mL (>2.75) 08/15/16 12:20 TSH 1.320 mIU/L (0.465-4.680) 08/15/16 12:20 PTH Intact 164.8 pg/mL (14.0-72.0) H 08/15/16 12:20 Copper 863 ug/L (810-1990) 08/15/16 12:20 Selenium 110 mcg/L (63-160) 08/15/16 12:20 Zinc 62 ug/dL (60-130) 08/15/16 12:20 ASSESSMENT: 1. Morbid obesity and excess calories. 2. Body mass index reduced from 45 down to 26.0 3. Status post gastric bypass. 4. Restless leg syndrome. 5. Obstructive sleep apnea, resolved. 6. Secondary hyperparathyroidism. 7. Thiamine deficiency, resolved. 8. Hypertriglyceridemia. 9. Prior history of active tobacco use, now in remission. 10. Ghy-bygkjqo-iklvwkyfv type 2 diabetes, resolved. 11. Diabetic gastroparesis. 12. History of gout. 13. History of Hernandez's esophagus. 14. Chronic obstructive pulmonary disease. 15. Vitamin D deficiency, resolved 16. Hyperlipidemia. 17. Congestive heart failure from hypertension. 18. Iron deficiency anemia. 19. Vitamin A deficiency. 20. Hypertensive heart disease, resolved. 21. Status post valvular replacement. 22. Inadequate protein intake. 23. Symptomatic hypotension. PLAN: 1. Recommend vitamin A supplement with 8000 units daily including increased vitamin A rich foods. 2. Recommend goal protein intake of over 75 grams daily. 3. She reports symptomatic hypotension. Recommend follow-up with her cardiothoracic surgeon. 4. Recommend bariatric metabolic panel. 5. Recommend calcium intake over 1800 mg daily. 6. [facility] October 2016, one-year anniversary.
== END | disposition home or self-care (01) ==
LOC: BARWHC3 09:42
PROVIDERS: ATTEND Surgery Plastic and Reconstructive Surgery
DX: E66.01 Morbid (severe) obesity due to excess calories (principal); G25.81 Restless legs syndrome; G47.33 Obstructive sleep apnea (adult) (pediatric); E78.5 Hyperlipidemia, unspecified; E78.1 Pure hyperglyceridemia; E11.9 Type 2 diabetes mellitus without complications; J44.9 Chronic obstructive pulmonary disease, unspecified; I11.0 Hypertensive heart disease with heart failure; I50.9 Heart failure, unspecified; D50.9 Iron deficiency anemia, unspecified; E50.9 Vitamin A deficiency, unspecified; E89.1 Postprocedural hypoinsulinemia; E44.0 Moderate protein-calorie malnutrition; E55.9 Vitamin D deficiency, unspecified; K74.1 Hepatic sclerosis; N19 Unspecified kidney failure; K50.90 Crohn's disease, unspecified, without complications; Z87.891 Personal history of nicotine dependence; Z68.26 Body mass index [BMI] 26.0-26.9, adult; Z98.84 Bariatric surgery status
CPT/HCPCS: 84255; 84134; 84425; 80061; 80053; 82607; 82728; 83036; 82525; 82746; 83540; 83550; 83735; 84100; 84443; 84590; 84630; 85027; 85610; 85730; 82306; 83970; 97803; G0463; 99211

== ENCOUNTER 2016-08-22 22:08 | Inpatient (IN) | payer MEDICARE ==
[2016-08-22] MEDS ORDERED: ONDANSETRON 4 MG/2 ML VIAL IVP STA (22:46)
[2016-08-22] MEDS: SODIUM CHLORIDE 0.9% 500 ML IV SCH ×2 (22:58→23:26)
[2016-08-22] MEDS ORDERED: FAMOTIDINE 20 MG/2 ML VIAL IV STA (23:10)
--- NOTE | 2016-08-22 23:13 | ED ---
Nausea/Vomiting/Diarrhea HPI <Klaus Motnalvo - Last Filed: 08/23/16 03:19> - General Source: patient, RN notes reviewed Mode of arrival: wheelchair Limitations: no limitations <Joan Cisse - Last Filed: 08/23/16 03:33> - General Chief complaint: Nausea/Vomiting/Diarrhea Stated complaint: Vomiting/Pt has value replacement Time Seen by Provider: 08/22/16 22:46 - History of Present Illness Initial comments: Patient is a 56-year-old female resents to the emergency room for evaluation of nausea and vomiting. Patient states that she has a history of gastric bypass surgery. Patient states that she was eating [place] bread from [employer] and began vomiting. Patient states that she had open heart surgery about 4 weeks ago for mitral stenosis. Patient states she had a valve replacement. Patient states the surgery was done by Dr. Falk. patient states she just had an appointment with her microfilmer today and was discharged from home care nursing. Patient states every time she vomits she's having chest pain from the contraction of the vomiting. Patient states that she feels dizzy. Patient states that her stomach is causing her pain. Patient states she has a history of partial hysterectomy, appendectomy, cholecystectomy. Patient denies history of bowel obstructions. Patient denies constipation or diarrhea. Patient denies fevers or chills. (Joan Cisse) - Related Data Home Medications Medication Instructions Recorded Confirmed Albuterol Nebulized [Ventolin 2.5 mg INHALATION RT-QID 07/07/13 08/22/16 Nebulized] Venlafaxine HCl [Effexor XR] 150 mg PO BID 01/12/15 08/22/16 Tiotropium [place] [Spiriva] 1 cap INHALATION RT-DAILY 03/09/15 08/22/16 Budesonide-Formot 160-4.5 Mcg 2 puff INHALATION RT-BID 08/20/15 08/22/16 [Symbicort 160-4.5 Mcg Inhaler] Vitamin A 8,000 unit PO HS 07/02/16 08/22/16 Baclofen [Lioresal] 20 mg PO TID 08/22/16 08/22/16 Calcium Carb/Vitamin D3/Vit K1 1 tab PO DAILY 08/22/16 08/22/16 [Citracal Soft Chew] Cholecalciferol (Vitamin D3) 2,000 unit PO DAILY 08/22/16 08/22/16 [Vitamin D3] Previous Rx's Medication Instructions Recorded Aspirin 325 mg PO DAILY #30 tab 07/29/16 Atorvastatin [Lipitor] 40 mg PO DAILY #30 tab 07/29/16 Clopidogrel [Plavix] 75 mg PO DAILY #30 tab 07/29/16 Ferrous Sulfate [Iron (65 MG 325 mg PO BID #60 tab 07/29/16 Elemental)] Pantoprazole [Protonix] 40 mg PO AC-BRKFST #30 tab 07/29/16 oxyCODONE-APAP 10-325MG [Percocet 1 tab PO Q6HR #120 07/29/16 10-325 mg] Allergies Allergy/AdvReac Type Severity Reaction Status Date / Time Mushroom AdvReac Nausea & Verified 08/22/16 22:20 Vomiting Review of Systems ROS Other: All systems not noted in ROS Statement are negative. <Klaus Montalvo - Last Filed: 08/23/16 03:19> ROS Other: All systems not noted in ROS Statement are negative. <Joan Cisse - Last Filed: 08/23/16 03:33> ROS Statement: Those systems with pertinent positive or pertinent negative responses have been documented in the HPI. 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 History of Any Multi-Drug Resistant Organisms: None Reported Past Surgical History: Appendectomy, Back Surgery, Bariatric Surgery, Section, Cholecystectomy, Joint Replacement, Tubal Ligation Additional Past Surgical History / Comment(s): BACK SX X2 including a fusion, has CLC implanted in back (tens unit), cervical fusion, 9-- LAP GABRIEL EN Y, EGDs and EGD with dilation and removal of a staple that had migrated, colonoscopy/benign polypectomy, bilateral knee injections, 07/24/16: Open heart sx with valve replacement...patient unsure of which valve. (Valves were named by RN and none of them sounded familiar). Past Anesthesia/Blood Transfusion Reactions: Motion Sickness Additional Past Anesthesia/Blood Transfusion Reaction / Comment(s): Pt states she has never received blood. Past Psychological History: Depression Smoking Status: Former smoker Past Alcohol Use History: None Reported Past Drug Use History: None Reported - Past Family History Sister(s) Family Medical History: Myocardial Infarction (PA) Additional Family Medical History / Comment(s): at age 43 if PA Mother Family Medical History: Myocardial Infarction (PA) Additional Family Medical History / Comment(s): Mother at age 62 of PA. Father Family Medical History: Myocardial Infarction (PA) Additional Family Medical History / Comment(s): Father in his 40's of a PA. <Joan Cisse - Last Filed: 08/23/16 03:33> General Exam <Klaus Montalvo - Last Filed: 08/23/16 03:19> Limitations: no limitations General appearance: alert, in no apparent distress Head exam: Present: atraumatic, normocephalic, normal inspection Eye exam: Present: normal appearance ENT exam: Present: normal exam Neck exam: Present: normal inspection Respiratory exam: Present: normal lung sounds bilaterally. Absent: respiratory distress Cardiovascular Exam: Present: normal rhythm, tachycardia, normal heart sounds GI/Abdominal exam: Present: soft, tenderness ( upper midepigastric), normal bowel sounds. Absent: distended, guarding, rebound, rigid Extremities exam: Present: normal inspection Back exam: Present: normal inspection Neurological exam: Present: alert, oriented X3, CN II-XII intact, normal gait Psychiatric exam: Present: normal affect, normal mood Skin exam: Present: warm, dry, intact, normal color. Absent: rash <Joan Cisse - Last Filed: 08/23/16 03:33> - General Exam Comments Initial Comments: sitting in exam room, dry heaving (Joan Cisse) Medical Decision Making - Lab Data Result diagrams: 08/22/16 23:02 08/22/16 23:02 <Klaus Montalvo - Last Filed: 08/23/16 03:19> - Lab Data Result diagrams: 08/22/16 23:02 08/22/16 23:02 - Radiology Data Radiology results: report reviewed, image reviewed <Joan Cisse - Last Filed: 08/23/16 03:33> - Medical Decision Making patient is a 56-year-old female presents to the emergency room for evaluation of nausea, vomiting and abdominal pain. Patient had open heart surgery about [address] Falk. Patient's troponin elevated. Repeat troponin slightly decreased in 3 hours. X-ray significant for possible small bowel obstruction. Patient will be admitted for repeat cardiac enzymes and further evaluation of small bowel obstruction. (Joan Cisse) - Lab Data Lab Results 08/22/16 08/22/16 08/22/16 Range/Units 23:02 23:02 23:02 WBC 6.8 (3.8-10.6) k/uL RBC 4.45 (3.80-5.40) m/uL Hgb 12.8 (11.4-16.0) gm/dL Hct 37.6 (34.0-46.0) % MCV 84.7 D (80.0-100.0) fL MCH 28.7 (25.0-35.0) pg MCHC 33.9 (31.0-37.0) g/dL RDW 22.4 H (11.5-15.5) % Plt Count 234 (150-450) k/uL Neutrophils % (Manual) 33.0 % Band Neutrophils % 2.0 % Lymphocytes % (Manual) 57.0 % Monocytes % (Manual) 8.0 % Other Cells % % Neutrophils # (Manual) 2.4 (1.3-7.7) k/uL Lymphocytes # (Manual) 3.9 (1.0-4.8) k/uL Monocytes # (Manual) 0.5 (0-1.0) k/uL Nucleated RBCs 0 (0-0) /100 WBC Manual Slide Review Performed Large Platelets Present Poikilocytosis (manual Present Anisocytosis Moderate PT (9.0-12.0) sec INR (<1.1) APTT (22.0-30.0) sec Sodium 137 (137-145) mmol/L Potassium 4.2 (3.5-5.1) mmol/L Chloride 105 (98-107) mmol/L Carbon Dioxide 21 L (22-30) mmol/L Anion Gap 11 mmol/L BUN 10 (7-17) mg/dL Creatinine 0.90 (0.52-1.04) mg/dL Est GFR (MDRD) Af Amer >60 (>60 ml/min/1.73 sqM) Est GFR (MDRD) Non-Af >60 (>60 ml/min/1.73 sqM) Glucose 116 H (74-99) mg/dL Plasma Lactic Acid Rashard 2.0 (0.7-2.0) mmol/L Calcium 9.2 (8.4-10.2) mg/dL Magnesium 1.9 (1.6-2.3) mg/dL Total Bilirubin 0.6 (0.2-1.3) mg/dL AST 63 H (14-36) U/L ALT 55 H (9-52) U/L Alkaline Phosphatase 230 H (38-126) U/L Total Creatine Kinase (30-135) U/L CK-MB (CK-2) (0.0-2.4) ng/mL CK-MB (CK-2) Rel Index Troponin I (0.000-0.034) ng/mL Total Protein 7.5 (6.3-8.2) g/dL Albumin 3.6 (3.5-5.0) g/dL 08/22/16 08/22/16 08/23/16 Range/Units 23:02 23:02 02:04 WBC (3.8-10.6) k/uL RBC (3.80-5.40) m/uL Hgb (11.4-16.0) gm/dL Hct (34.0-46.0) % MCV (80.0-100.0) fL MCH (25.0-35.0) pg MCHC (31.0-37.0) g/dL RDW (11.5-15.5) % Plt Count (150-450) k/uL Neutrophils % (Manual) % Band Neutrophils % % Lymphocytes % (Manual) % Monocytes % (Manual) % Other Cells % % Neutrophils # (Manual) (1.3-7.7) k/uL Lymphocytes # (Manual) (1.0-4.8) k/uL Monocytes # (Manual) (0-1.0) k/uL Nucleated RBCs (0-0) /100 WBC Manual Slide Review Large Platelets Poikilocytosis (manual Anisocytosis PT 11.6 (9.0-12.0) sec INR 1.2 (<1.1) APTT 26.0 (22.0-30.0) sec Sodium (137-145) mmol/L Potassium (3.5-5.1) mmol/L Chloride (98-107) mmol/L Carbon Dioxide (22-30) mmol/L Anion Gap mmol/L BUN (7-17) mg/dL Creatinine (0.52-1.04) mg/dL Est GFR (MDRD) Af Amer (>60 ml/min/1.73 sqM) Est GFR (MDRD) Non-Af (>60 ml/min/1.73 sqM) Glucose (74-99) mg/dL Plasma Lactic Acid Rashard (0.7-2.0) mmol/L Calcium (8.4-10.2) mg/dL Magnesium (1.6-2.3) mg/dL Total Bilirubin (0.2-1.3) mg/dL AST (14-36) U/L ALT (9-52) U/L Alkaline Phosphatase (38-126) U/L Total Creatine Kinase 36 (30-135) U/L CK-MB (CK-2) 0.7 (0.0-2.4) ng/mL CK-MB (CK-2) Rel Index 1.9 Troponin I 0.047 H* 0.040 H* (0.000-0.034) ng/mL Total Protein (6.3-8.2) g/dL Albumin (3.5-5.0) g/dL 08/22/16 23:35 Sinus tachycardia, ventricular rate 101 bpm, UT interval 168 ms, QRS duration 80 ms, QT/QTC 394/510 ms (Joan Cisse) Critical Care Time Critical Care Time: Yes Total Critical Care Time: 31 <Klaus Montalvo - Last Filed: 08/23/16 03:19> Disposition <Klaus Montalvo - Last Filed: 08/23/16 03:19> <Joan Cisse - Last Filed: 08/23/16 03:33> Clinical Impression: Nausea & vomiting, Abdominal pain, SBO (small bowel obstruction), S/P gastric bypass Disposition: ADMITTED IP TO THIS HOSP Condition: Fair Referrals: Nael Hager MD [Primary Care Provider] - 1-2 days
[2016-08-22 23:23] LABS: ALT 55 U/L (9-52); AST 63 U/L (14-36); Alkaline Phosphatase 230 U/L (38-126); Anion Gap 11 mmol/L; Blood Urea Nitrogen 10 mg/dL (7-17); Calcium 9.2 mg/dL (8.4-10.2); Carbon Dioxide 21 mmol/L (22-30); Chloride 105 mmol/L (98-107); Glucose 116 mg/dL (74-99); Magnesium 1.9 mg/dL (1.6-2.3); Non-African American GFR(MDRD) >60 (>60 ml/min/1.73 sqM); Potassium 4.2 mmol/L (3.5-5.1); Sodium 137 mmol/L (137-145); Total Bilirubin 0.6 mg/dL (0.2-1.3); Total Protein 7.5 g/dL (6.3-8.2)
[2016-08-22 23:25] LABS: INR 1.2 (<1.1); Prothrombin Time 11.6 sec (9.0-12.0)
[2016-08-22 23:50] LABS: Anisocytosis Moderate; Aty Lym Flag Slight; CH 27.6; CHCM 32.7; HCT 37.6 % (34.0-46.0); HDW 2.91; HGB 12.8 gm/dL (11.4-16.0); MCH 28.7 pg (25.0-35.0); MCHC 33.9 g/dL (31.0-37.0); Mean Platelet Volume 7.7; RBC 4.45 m/uL (3.80-5.40); RDW 22.4 % (11.5-15.5); WBC 6.8 k/uL (3.8-10.6); WBC (Perox) 6.81
[2016-08-22 23:51] LABS: MCV 84.7 fL (80.0-100.0)
[2016-08-22 23:55] LABS: Creatine Kinase MB 0.7 ng/mL (0.0-2.4)
[2016-08-22 23:58] LABS: Troponin I 0.047 ng/mL (0.000-0.034)
[2016-08-23 00:13] VITALS: RESP 18
[2016-08-23] MEDS ORDERED: METOCLOPRAMIDE 5 MG/ML 2 ML VIAL IVP STA (00:24)
--- NOTE | 2016-08-23 00:32 | XR ---
EXAM: XR Abdomen Complete With XR Chest CLINICAL HISTORY: Reason: Pain TECHNIQUE: Frontal view of the chest, frontal view of the abdomen/pelvis and upright view of the abdomen. COMPARISON: Chest x-ray dated 07/28/2016 FINDINGS: Lungs: Unremarkable. No consolidation. Pleural space: Unremarkable. No pneumothorax. Heart: Stable moderate enlargement of the cardiomediastinal silhouette. An atrial appendage device is again noted. Probable cardiac valve prosthesis. Mediastinum: See above. Intraperitoneal space: No free air. Gastrointestinal tract: Prominent loops of small bowel seen within the left hemiabdomen, which may represent ileus versus small bowel obstruction. Organs: Surgical clips within the right upper quadrant likely prior cholecystectomy. Bones/joints: Evidence of prior median sternotomy. Evidence of prior cervical spine fusion. Degenerative changes of the osseous structures. Posterior joint changes noted within the lumbosacral spine. Tubes, lines and devices: Spinal nerve stimulator device with tips projecting within the mid thoracic spine. IMPRESSION: Prominent loops of small bowel seen within the left hemiabdomen, which may represent an ileus versus small bowel obstruction.
[2016-08-23] MEDS ORDERED: HYDROmorphone 1 MG/ML 1 ML SYRINGE IVP STA (00:43)
[2016-08-23 01:11] LABS: Add Differential Manual Differential
[2016-08-23 01:14] LABS: Nucleated Red Blood Cells 0 /100 WBC (0-0); Total Cells Counted 100
[2016-08-23 01:18] LABS: Large Platelets Present
[2016-08-23 01:19] LABS: Manual Review Performed
[2016-08-23] MEDS ORDERED: SODIUM CHLORIDE 0.9% 1,000 ML IV STA ×2 (03:13)
[2016-08-23] MEDS ORDERED: ONDANSETRON 4 MG/2 ML VIAL IVP PRN (03:13)
[2016-08-23] MEDS ORDERED: SODIUM CHLORIDE 0.9% 500 ML IV STA (03:13)
[2016-08-23] MEDS ORDERED: RX INFO: IV CONTRAST WAS GIVEN 1 EACH MISC MISCELLANE PRN (03:23)
[2016-08-23 04:20] VITALS: BMI 26.9
--- NOTE | 2016-08-23 04:31 | CT ---
EXAM: CT Abdomen and Pelvis With Intravenous Contrast CLINICAL HISTORY: Pain TECHNIQUE: Axial computed tomography images of the abdomen and pelvis with intravenous contrast. CTDI is 9.68, 9.60 mGy and DLP is 677.90 mGy-cm. This CT exam was performed using one or more of the following dose reduction techniques: automated exposure control, adjustment of the mA and/or kV according to patient size, and/or use of iterative reconstruction technique. COMPARISON: No relevant prior studies available. FINDINGS: Lower thorax: Visualized lower thorax demonstrates dependent atelectasis and or scarring. Mild enlargement of the heart. Mitral valve prosthesis. ABDOMEN: Liver: The liver is enlarged measuring up to 23 cm. Gallbladder and bile ducts: Mild intra-and extra hepatic bile duct dilatation likely secondary to prior cholecystectomy. Decreased attenuation of the liver which may be phase of contrast versus hepatic steatosis. Pancreas: Unremarkable. Spleen: The spleen is enlarged measuring up to 18 cm. Adrenals: Unremarkable. Kidneys and ureters: Unremarkable. Stomach and bowel: Evidence of Cherie-en-Y gastric bypass surgery. No bowel obstruction. Appendix: The appendix is surgically absent. PELVIS: Bladder: Unremarkable. Reproductive: Unremarkable as visualized. ABDOMEN and PELVIS: Intraperitoneal space: Trace free fluid in the pelvis. Bones/joints: No acute fracture. No dislocation. Soft tissues: Unremarkable. Vasculature: Vascular calcifications. Lymph nodes: Unremarkable. Tubes, lines and devices: Post surgical changes within the spine. Spinal nerve stimulator device is noted. IMPRESSION: Hepatosplenomegaly. Cherie-en-Y gastric bypass surgery. No bowel obstruction or free air.
[2016-08-23] MEDS ORDERED: PANTOPRAZOLE 40 MG/10 ML VIAL IVP SCH (09:00)
[2016-08-23] MEDS ORDERED: ENOXAPARIN 40 MG/0.4 ML SYRINGE SQ SCH (09:00)
[2016-08-23] MEDS: HYDROmorphone 1 MG/ML 1 ML SYRINGE IVP PRN ×3 (10:08→16:28)
--- NOTE | 2016-08-23 10:22 | P.GSHP ---
<Grace Parekh - Last Filed: 08/23/16 09:47> History of Present Illness H&P Date: 08/23/16 Chief Complaint: Nausea vomiting after eating 56-year-old female presented on the day of admission to the emergency room to be evaluated for chief complaint developing a sudden onset of nausea and vomiting with dry heaves. Patient stated this occurred after she had eaten setswana bread from [employer]. Patient stated that "I was concerned that the piece of bread may have gotten caught my stomach " had gastric bypass surgery in October 2015 don't normally eat bread if I do it' s just a small bite. Patient did undergo on 11/06/[address] Fleming laparoscopic pavan-en-y gastric bypass for morbid obesity due to excessive caloric intake patient states since his surgery has lost over 100 pounds. And did see Dr. Fleming in the office last week and had been tolerating a diet and knows with "I'm aware of what I am to eat patient stated that with the nausea and dry heaves it did create a sensation of chest discomfort. Patient denied any diaphoresis or shortness of breath. Additionally patient denied any abdominal pain when questioning. Patient states that she normally has a bowel movement every 2-3 days but has not noted any change in bowel habits in the emergency room the patient did undergo a CAT scan abdomen and pelvis with IV contrast reviewing the report no bowel obstruction or free air noted postsurgical changes noted roex-en-y Currently patient is being seen this morning up ambulating in the room. Patient states she feels fine. The dry heaves have resolved no abdominal pain No chest discomfort when questioning. Patient is requesting a diet states "hungry" Patient has a history of undergoing on Jul 24 2016 mitral valve replacement for severe mitral valve regurgitation with evidence of rheumatic features per Dr. carballo patient was able to be discharged on 07/29/2016. Patient states that she did see last week dr carballo in the office. Has been doing relatively well up until the current event - Review of Systems Comment: Essentially unremarkable except as mentioned in the present illness Past Medical History Past Medical History: Heart Failure, COPD, CVA/TIA, GERD/Reflux, Hypertension, Osteoarthritis (OA) Additional Past Medical History / Comment(s): Past SHIPMAN'S ESOPHAGUS- surgically removed, past hiatal hernia, chronic back and neck pain, stroke 2015 with L arm weakness, chronic bronchitis, sinus problems, migraines in past , athritis bilateral knees and in neck, past tooth abscess. History of Any Multi-Drug Resistant Organisms: None Reported Past Surgical History: Appendectomy, Back Surgery, Bariatric Surgery, Section, Cholecystectomy, Joint Replacement, Tubal Ligation Additional Past Surgical History / Comment(s): BACK SX X2 including a fusion, has CLC implanted in back (tens unit), cervical fusion, 11-06-15 LAP PAVAN EN Y, EGDs and EGD with dilation and removal of a staple that had migrated, colonoscopy/benign polypectomy, bilateral knee injections, 07/24/16: Open heart sx with valve replacement...patient unsure of which valve. (Valves were named by RN and none of them sounded familiar). Past Anesthesia/Blood Transfusion Reactions: Motion Sickness Additional Past Anesthesia/Blood Transfusion Reaction / Comment(s): Pt states she has never received blood. Past Psychological History: Depression Additional Psychological History / Comment(s): Pt lives in home with . Pt states she has depression and is on meds for that which have been very effective. There are adult children in the home. Pt is independent. Smoking Status: Former smoker Past Alcohol Use History: None Reported Past Drug Use History: None Reported - Past Family History Sister(s) Family Medical History: Myocardial Infarction ([place]) Additional Family Medical History / Comment(s): at age 43 if [place] Mother Family Medical History: Myocardial Infarction ([place]) Additional Family Medical History / Comment(s): Mother at age 62 of [place]. Father Family Medical History: Myocardial Infarction ([place]) Additional Family Medical History / Comment(s): Father in his 40's of a [place]. Medications and Allergies Home Medications Medication Instructions Recorded Confirmed Type Albuterol Nebulized [Ventolin 2.5 mg INHALATION RT-QID 07/07/13 08/22/16 History Nebulized] Venlafaxine HCl [Effexor XR] 150 mg PO BID 01/12/15 08/22/16 History Tiotropium [place] [Spiriva] 1 cap INHALATION RT-DAILY 03/09/15 08/22/16 History Budesonide-Formot 160-4.5 Mcg 2 puff INHALATION RT-BID 08/20/15 08/22/16 History [Symbicort 160-4.5 Mcg Inhaler] Vitamin A 8,000 unit PO HS 07/02/16 08/22/16 History Baclofen [Lioresal] 20 mg PO TID 08/22/16 08/22/16 History Calcium Carb/Vitamin D3/Vit K1 1 tab PO DAILY 08/22/16 08/22/16 History [Citracal Soft Chew] Cholecalciferol (Vitamin D3) 2,000 unit PO DAILY 08/22/16 08/22/16 History [Vitamin D3] Metoprolol Tartrate [Lopressor] 12.5 mg PO BID 08/23/16 08/23/16 History Multivitamins, Thera [Multivitamin 1 tab PO DAILY 08/23/16 08/23/16 History (formulary)] Allergies Allergy/AdvReac Type Severity Reaction Status Date / Time Mushroom AdvReac Nausea & Verified 08/22/16 22:20 Vomiting Surgical - Exam Vital Signs Temp Pulse Resp BP Pulse Ox 96.9 F L 117 H 28 H 141/94 98 08/22/16 22:16 08/22/16 22:16 08/22/16 22:16 08/22/16 22:16 08/22/16 22:16 GENERAL APPEARANCE: 56-year-old female patient is alert, oriented, in no acute distress. Up ambulating in the room pleasant cooperative talkative VITAL SIGNS: Reviewed HEENT: Head is normocephalic and atraumatic. Pupils are equal and reactive. The nares are patent. Oropharynx is clear without lesions. NECK: Supple without lymphadenopathy. Traches midline . Chest anterior chest wall tattoos noted well-healed surgical scar HEART: S1, S2. Regular rate and rhythm. No murmur noted monitor sinus rhythm LUNGS: No crackles or wheezes are heard. On room air sats are 97% ABDOMEN: Soft, nontender, nondistended with good bowel sounds. No peritoneal signs. No palpable organomegaly or masses. No facial grimacing with palpitation to the abdominal wall EXTREMITIES: Normal skin color and turgor. No cyanosis, rash, ulceration, clubbing or edema. Radial pedal pulses are 2/4 bilaterally. NEUROLOGICAL: No focal deficits. Strength and sensation are grossly intact. Results - Labs 08/22/16 23:02 08/22/16 23:02 Abnormal Lab Results - Last 24 Hours (Table) 08/22/16 08/22/16 08/22/16 Range/Units 23:02 23:02 23:02 RDW 22.4 H (11.5-15.5) % Carbon Dioxide 21 L (22-30) mmol/L Glucose 116 H (74-99) mg/dL AST 63 H (14-36) U/L ALT 55 H (9-52) U/L Alkaline Phosphatase 230 H (38-126) U/L Troponin I 0.047 H* (0.000-0.034) ng/mL 08/23/16 Range/Units 02:04 RDW (11.5-15.5) % Carbon Dioxide (22-30) mmol/L Glucose (74-99) mg/dL AST (14-36) U/L ALT (9-52) U/L Alkaline Phosphatase (38-126) U/L Troponin I 0.040 H* (0.000-0.034) ng/mL Diabetes panel 08/22/16 Range/Units 23:02 Sodium 137 (137-145) mmol/L Potassium 4.2 (3.5-5.1) mmol/L Chloride 105 (98-107) mmol/L Carbon Dioxide 21 L (22-30) mmol/L BUN 10 (7-17) mg/dL Creatinine 0.90 (0.52-1.04) mg/dL Glucose 116 H (74-99) mg/dL Calcium 9.2 (8.4-10.2) mg/dL AST 63 H (14-36) U/L ALT 55 H (9-52) U/L Alkaline Phosphatase 230 H (38-126) U/L Total Protein 7.5 (6.3-8.2) g/dL Albumin 3.6 (3.5-5.0) g/dL Calcium panel 08/22/16 Range/Units 23:02 Calcium 9.2 (8.4-10.2) mg/dL Albumin 3.6 (3.5-5.0) g/dL Pituitary panel 08/22/16 Range/Units 23:02 Sodium 137 (137-145) mmol/L Potassium 4.2 (3.5-5.1) mmol/L Chloride 105 (98-107) mmol/L Carbon Dioxide 21 L (22-30) mmol/L BUN 10 (7-17) mg/dL Creatinine 0.90 (0.52-1.04) mg/dL Glucose 116 H (74-99) mg/dL Calcium 9.2 (8.4-10.2) mg/dL Adrenal panel 08/22/16 Range/Units 23:02 Sodium 137 (137-145) mmol/L Potassium 4.2 (3.5-5.1) mmol/L Chloride 105 (98-107) mmol/L Carbon Dioxide 21 L (22-30) mmol/L BUN 10 (7-17) mg/dL Creatinine 0.90 (0.52-1.04) mg/dL Glucose 116 H (74-99) mg/dL Calcium 9.2 (8.4-10.2) mg/dL Total Bilirubin 0.6 (0.2-1.3) mg/dL AST 63 H (14-36) U/L ALT 55 H (9-52) U/L Alkaline Phosphatase 230 H (38-126) U/L Total Protein 7.5 (6.3-8.2) g/dL Albumin 3.6 (3.5-5.0) g/dL Assessment and Plan Plan: Impression Present on admission intractable nausea with dry heaves with a CAT scan of the abdomen pelvis with IV contrast shows no evidence of obstruction or free air resolved A recent mitral valve replacement bioprosthesia mosaic done on 07/24/2016 for severe mitral valve regurgitation with evidence of rheumatic features History and moderate pulmonary hypertension Esophageal reflux disease History of barrette esophagus A recent 11/06/2015 gastric bypass surgery laparoscopic Pavan-en-y for morbid obesity due to excessive caloric intake has lost 100 pounds since procedure BNP was reduced from 45 to 26.9 Chronic congestive heart failure diastolic dysfunction no evidence of an exacerbation Prior history of active tobacco abuse now in remission Depressive disorder with nonspecified Prior history of a stroke and a TIA no deficits Chronic pain syndrome with narcotic dependency Mildly elevated troponins Plan No surgical intervention at this time Resume home meds as appropriate Await cardiology input Possible discharge in the next 24 hours DVT and GI prophylaxis Keep nothing by mouth until seen by cardiology service if no further cardiac workup at this time will resume diet Further recommendations pending The above impression and plan of care have been discussed and directed by signing physician. Grace Parekh nurse practitioner acting as scribe for signing physician. <Sindy Oden Last Filed: 08/23/16 12:33> Surgical - Exam Vital Signs Temp Pulse Resp BP Pulse Ox 96.9 F L 117 H 28 H 141/94 98 08/22/16 22:16 08/22/16 22:16 08/22/16 22:16 08/22/16 22:16 08/22/16 22:16 Results - Labs 08/22/16 23:02 08/22/16 23:02 Abnormal Lab Results - Last 24 Hours (Table) 08/22/16 08/22/16 08/22/16 Range/Units 23:02 23:02 23:02 RDW 22.4 H (11.5-15.5) % Carbon Dioxide 21 L (22-30) mmol/L Glucose 116 H (74-99) mg/dL AST 63 H (14-36) U/L ALT 55 H (9-52) U/L Alkaline Phosphatase 230 H (38-126) U/L Troponin I 0.047 H* (0.000-0.034) ng/mL Ur Specific Thelma (1.001-1.035) Urine Nitrite (Negative) Ur Leukocyte Esterase (Negative) Urine Bacteria (None) /hpf 08/23/16 08/23/16 Range/Units 02:04 10:15 RDW (11.5-15.5) % Carbon Dioxide (22-30) mmol/L Glucose (74-99) mg/dL AST (14-36) U/L ALT (9-52) U/L Alkaline Phosphatase (38-126) U/L Troponin I 0.040 H* (0.000-0.034) ng/mL Ur Specific Thelma 1.041 H (1.001-1.035) Urine Nitrite Positive H (Negative) Ur Leukocyte Esterase Small H (Negative) Urine Bacteria Rare H (None) /hpf Diabetes panel 08/22/16 Range/Units 23:02 Sodium 137 (137-145) mmol/L Potassium 4.2 (3.5-5.1) mmol/L Chloride 105 (98-107) mmol/L Carbon Dioxide 21 L (22-30) mmol/L BUN 10 (7-17) mg/dL Creatinine 0.90 (0.52-1.04) mg/dL Glucose 116 H (74-99) mg/dL Calcium 9.2 (8.4-10.2) mg/dL AST 63 H (14-36) U/L ALT 55 H (9-52) U/L Alkaline Phosphatase 230 H (38-126) U/L Total Protein 7.5 (6.3-8.2) g/dL Albumin 3.6 (3.5-5.0) g/dL Calcium panel 08/22/16 Range/Units 23:02 Calcium 9.2 (8.4-10.2) mg/dL Albumin 3.6 (3.5-5.0) g/dL Pituitary panel 08/22/16 Range/Units 23:02 Sodium 137 (137-145) mmol/L Potassium 4.2 (3.5-5.1) mmol/L Chloride 105 (98-107) mmol/L Carbon Dioxide 21 L (22-30) mmol/L BUN 10 (7-17) mg/dL Creatinine 0.90 (0.52-1.04) mg/dL Glucose 116 H (74-99) mg/dL Calcium 9.2 (8.4-10.2) mg/dL Adrenal panel 08/22/16 Range/Units 23:02 Sodium 137 (137-145) mmol/L Potassium 4.2 (3.5-5.1) mmol/L Chloride 105 (98-107) mmol/L Carbon Dioxide 21 L (22-30) mmol/L BUN 10 (7-17) mg/dL Creatinine 0.90 (0.52-1.04) mg/dL Glucose 116 H (74-99) mg/dL Calcium 9.2 (8.4-10.2) mg/dL Total Bilirubin 0.6 (0.2-1.3) mg/dL AST 63 H (14-36) U/L ALT 55 H (9-52) U/L Alkaline Phosphatase 230 H (38-126) U/L Total Protein 7.5 (6.3-8.2) g/dL Albumin 3.6 (3.5-5.0) g/dL
--- NOTE | 2016-08-23 10:24 | P.GSCN ---
History of Present Illness Consult date: 08/23/16 Reason for Consult: Recent mitral valve replacement with left atrial appendage ligation, patient known to us. Requesting physician: Nael Hager History of present illness: This 56-year-old patient with multiple comorbidities presented to the emergency room last night with complaints of nausea/vomiting for several hours. She was just seen yesterday in the office of Dr. Falk for her first postop visit as she had a chordal preserving mitral valve replacement using a #29 mm porcine Mosaic bioprosthetic valve with exclusion of the left atrial appendage using a # 55 mm atrial clip. In our office she had no complaints of abdominal pain, nausea, or vomiting. She does have a history of gastric bypass surgery. Her acute abdominal series demonstrated questionable ileus versus small bowel obstruction. Her CAT scan of the abdomen/pelvis demonstrated hepatosplenomegaly. Upon my exam this morning she denies any nausea or vomiting after being given IV antibiotics yesterday. She does state she has a bit of pain in her mid upper abdomen which she attributes to retching for several hours. She is nothing by mouth except that she has had a few sips of Sprite which she has been able to tolerate. Her heart rate is elevated but is sinus with no evidence of atrial fibrillation. Dr. Falk from cardiothoracic surgery was consulted as this patient is well-known to us. Review of Systems 14 point review of systems was completed and was negative except as noted. - Cardiovascular Reports as per HPI - Respiratory Reports as per HPI - Gastrointestinal Reports as per HPI Past Medical History Past Medical History: Heart Failure, COPD, CVA/TIA, GERD/Reflux, Hypertension, Osteoarthritis (OA) Additional Past Medical History / Comment(s): Past SHIPMAN'S ESOPHAGUS- surgically removed, past hiatal hernia, chronic back and neck pain, stroke 2015 with L arm weakness, chronic bronchitis, sinus problems, migraines in past , athritis bilateral knees and in neck, past tooth abscess. History of Any Multi-Drug Resistant Organisms: None Reported Past Surgical History: Appendectomy, Back Surgery, Bariatric Surgery, Section, Cholecystectomy, Joint Replacement, Tubal Ligation Additional Past Surgical History / Comment(s): BACK SX X2 including a fusion, has CLC implanted in back (tens unit), cervical fusion, 11-06-15 LAP GABRIEL EN Y, EGDs and EGD with dilation and removal of a staple that had migrated, colonoscopy/benign polypectomy, bilateral knee injections, 07/24/16: Open heart sx with valve replacement...patient unsure of which valve. (Valves were named by RN and none of them sounded familiar). Past Anesthesia/Blood Transfusion Reactions: Motion Sickness Additional Past Anesthesia/Blood Transfusion Reaction / Comm: Pt states she has never received blood. Past Psychological History: Depression Additional Psychological History / Comment(s): Pt lives in home with . Pt states she has depression and is on meds for that which have been very effective. There are adult children in the home. Pt is independent. Smoking Status: Former smoker Past Alcohol Use History: None Reported Past Drug Use History: None Reported - Past Family History Sister(s) Family Medical History: Myocardial Infarction ([place]) Additional Family Medical History / Comment(s): at age 43 if [place] Mother Family Medical History: Myocardial Infarction ([place]) Additional Family Medical History / Comment(s): Mother at age 62 of [place]. Father Family Medical History: Myocardial Infarction ([place]) Additional Family Medical History / Comment(s): Father in his 40's of a [place]. Medications and Allergies Home Medications Medication Instructions Recorded Confirmed Type Albuterol Nebulized [Ventolin 2.5 mg INHALATION RT-QID 07/07/13 08/22/16 History Nebulized] Venlafaxine HCl [Effexor XR] 150 mg PO BID 01/12/15 08/22/16 History Tiotropium [place] [Spiriva] 1 cap INHALATION RT-DAILY 03/09/15 08/22/16 History Budesonide-Formot 160-4.5 Mcg 2 puff INHALATION RT-BID 08/20/15 08/22/16 History [Symbicort 160-4.5 Mcg Inhaler] Vitamin A 8,000 unit PO HS 07/02/16 08/22/16 History Baclofen [Lioresal] 20 mg PO TID 08/22/16 08/22/16 History Calcium Carb/Vitamin D3/Vit K1 1 tab PO DAILY 08/22/16 08/22/16 History [Citracal Soft Chew] Cholecalciferol (Vitamin D3) 2,000 unit PO DAILY 08/22/16 08/22/16 History [Vitamin D3] Metoprolol Tartrate [Lopressor] 12.5 mg PO BID 08/23/16 08/23/16 History Multivitamins, Thera [Multivitamin 1 tab PO DAILY 08/23/16 08/23/16 History (formulary)] Allergies Allergy/AdvReac Type Severity Reaction Status Date / Time Mushroom AdvReac Nausea & Verified 08/22/16 22:20 Vomiting Surgical - Exam Vital Signs Temp Pulse Resp BP Pulse Ox 96.9 F L 117 H 28 H 141/94 98 08/22/16 22:16 08/22/16 22:16 08/22/16 22:16 08/22/16 22:16 08/22/16 22:16 - General well developed, well nourished, no distress - Eyes PERRL, normal ocular movement - ENT no hearing loss - Neck trachea midline - Respiratory normal expansion, normal respiratory effort, clear to auscultation - Cardiovascular Rhythm: regular Heart Sounds: normal: S1, S2 - Abdomen Abdomen: soft, non tender, bowel sounds - Genitourinary Deferred - Rectum Deferred - Integumentary Multiple tattoos present - Neurologic normal coordination, normal sensation - Musculoskeletal normal gait - Psychiatric oriented to time, oriented to person, oriented to place, speech is normal, memory intact Results - Labs 08/22/16 23:02 08/22/16 23:02 Abnormal Lab Results - Last 24 Hours (Table) 08/22/16 08/22/16 08/22/16 Range/Units 23:02 23:02 23:02 RDW 22.4 H (11.5-15.5) % Carbon Dioxide 21 L (22-30) mmol/L Glucose 116 H (74-99) mg/dL AST 63 H (14-36) U/L ALT 55 H (9-52) U/L Alkaline Phosphatase 230 H (38-126) U/L Troponin I 0.047 H* (0.000-0.034) ng/mL 08/23/16 Range/Units 02:04 RDW (11.5-15.5) % Carbon Dioxide (22-30) mmol/L Glucose (74-99) mg/dL AST (14-36) U/L ALT (9-52) U/L Alkaline Phosphatase (38-126) U/L Troponin I 0.040 H* (0.000-0.034) ng/mL Diabetes panel 08/22/16 Range/Units 23:02 Sodium 137 (137-145) mmol/L Potassium 4.2 (3.5-5.1) mmol/L Chloride 105 (98-107) mmol/L Carbon Dioxide 21 L (22-30) mmol/L BUN 10 (7-17) mg/dL Creatinine 0.90 (0.52-1.04) mg/dL Glucose 116 H (74-99) mg/dL Calcium 9.2 (8.4-10.2) mg/dL AST 63 H (14-36) U/L ALT 55 H (9-52) U/L Alkaline Phosphatase 230 H (38-126) U/L Total Protein 7.5 (6.3-8.2) g/dL Albumin 3.6 (3.5-5.0) g/dL Calcium panel 08/22/16 Range/Units 23:02 Calcium 9.2 (8.4-10.2) mg/dL Albumin 3.6 (3.5-5.0) g/dL Pituitary panel 08/22/16 Range/Units 23:02 Sodium 137 (137-145) mmol/L Potassium 4.2 (3.5-5.1) mmol/L Chloride 105 (98-107) mmol/L Carbon Dioxide 21 L (22-30) mmol/L BUN 10 (7-17) mg/dL Creatinine 0.90 (0.52-1.04) mg/dL Glucose 116 H (74-99) mg/dL Calcium 9.2 (8.4-10.2) mg/dL Adrenal panel 08/22/16 Range/Units 23:02 Sodium 137 (137-145) mmol/L Potassium 4.2 (3.5-5.1) mmol/L Chloride 105 (98-107) mmol/L Carbon Dioxide 21 L (22-30) mmol/L BUN 10 (7-17) mg/dL Creatinine 0.90 (0.52-1.04) mg/dL Glucose 116 H (74-99) mg/dL Calcium 9.2 (8.4-10.2) mg/dL Total Bilirubin 0.6 (0.2-1.3) mg/dL AST 63 H (14-36) U/L ALT 55 H (9-52) U/L Alkaline Phosphatase 230 H (38-126) U/L Total Protein 7.5 (6.3-8.2) g/dL Albumin 3.6 (3.5-5.0) g/dL - Imaging Abdominal x-ray: report reviewed, image reviewed CT scan - abdomen: report reviewed, image reviewed CT scan - pelvis: report reviewed, image reviewed Assessment and Plan (1) Abdominal pain Status: Acute (2) Nausea & vomiting Status: Acute (3) S/P gastric bypass Status: Acute (4) COPD (chronic obstructive pulmonary disease) Status: Acute (5) History of CVA (cerebrovascular accident) Status: Acute (6) S/P MVR (mitral valve replacement) Status: Acute (7) Tachycardia Status: Acute (8) Diabetes mellitus Status: Chronic (9) Diastolic CHF Status: Chronic (10) Hypertension Status: Chronic (11) Tobacco abuse, in remission Status: Chronic (12) Fibromyalgia Status: Acute (13) Gastroesophageal reflux disease Status: Acute (14) Mild tricuspid regurgitation Status: Acute (15) Moderate to severe pulmonary hypertension Status: Acute Plan: 1. Recommend resuming patient's aspirin, Plavix, Lipitor, Lopressor 12.5 mg by mouth twice a day. 2. Encourage incentive spirometry use. 3. Increase activity, and platelet hallway. 4. Medical management per primary care service/general surgery recommendations. 5. Will follow with you for treatment recommendations. Thank you Dr. Hager for this consult. We look forward to working with you in the care of this patient. Time with Patient: Greater than 30
[2016-08-23] MEDS ORDERED: ASPIRIN 325 MG TAB PO SCH (10:25)
[2016-08-23] MEDS ORDERED: ATORVASTATIN 40 MG TAB PO SCH (10:30)
[2016-08-23] MEDS ORDERED: METOPROLOL TARTRATE 12.5 MG TAB PO SCH (10:30)
[2016-08-23] MEDS ORDERED: CLOPIDOGREL 75 MG TAB PO SCH (10:30)
[2016-08-23 10:32] VITALS: TEMP 96.9
[2016-08-23 10:32] LABS: Appearance,Urine Clear (Clear); Bacteria,Urine Rare /hpf; Bilirubin,Urine Negative (Negative); Glucose,Urine (UA) Negative (Negative); Ketones,Urine Negative (Negative); Leukocyte Esterase,Urine Small (Negative); Nitrite,Urine Positive (Negative); PH, Urine 5.5 (5.0-8.0); Particle Count 48437; Protein,Urine Negative (Negative); Specific Gravity,Urine 1.041 (1.001-1.035); Squamous Epithelial Cell,Urine 1 /hpf (0-4); UA Billing (MACRO vs. MICRO) MICRO; Urobilinogen,Urine <2.0 mg/dL (<2.0); WBC,Urine 3 /hpf (0-5)
[2016-08-23] MEDS ORDERED: VENLAFAXINE HCL ER 150 MG CAP PO SCH (12:00)
[2016-08-23] MEDS ORDERED: VENLAFAXINE HCL 50 MG TAB PO SCH (12:00)
[2016-08-23 12:15] VITALS: BP 126/78
--- NOTE | 2016-08-23 12:37 | P.CRDCN ---
History of Present Illness Consult date: 08/23/16 Reason for Consult (text): elevated troponin Chief complaint: nausea/vomiting History of present illness: This is a pleasant 56-year-old female who follows with Dr. Wilkins in the office. She has a history of gastric bypass surgery, mitral valve replacement 07/24/2016 , COPD, diabetes and hypertension. She presented to the emergency department after consuming some [place] cheese bread that she did not chew well which caused some nausea and vomiting due to previous gastric bypass. She developed some discomfort in her sternum. EKG showed sinus tachycardia with nonspecific ST-T wave abnormalities similar to previous. Laboratory value showed troponins of 0.047 and 0.040. Upon examination, patient is sitting up in bed eating clear liquid diet tolerating it well. She denies further complaints of chest discomfort. No further complaints of nausea or vomiting. He had no dizziness, lightheadedness, syncope or edema. no Shortness of breath. Past Medical History Past Medical History: Heart Failure, COPD, CVA/TIA, GERD/Reflux, Hypertension, Osteoarthritis (OA) Additional Past Medical History / Comment(s): Past SHPIMAN'S ESOPHAGUS- surgically removed, past hiatal hernia, chronic back and neck pain, stroke 2015 with L arm weakness, chronic bronchitis, sinus problems, migraines in past , athritis bilateral knees and in neck, past tooth abscess. History of Any Multi-Drug Resistant Organisms: None Reported Past Surgical History: Appendectomy, Back Surgery, Bariatric Surgery, Section, Cholecystectomy, Joint Replacement, Tubal Ligation Additional Past Surgical History / Comment(s): BACK SX X2 including a fusion, has CLC implanted in back (tens unit), cervical fusion, 11-06-15 LAP GABRIEL EN Y, EGDs and EGD with dilation and removal of a staple that had migrated, colonoscopy/benign polypectomy, bilateral knee injections, 07/24/16: Open heart sx with valve replacement...patient unsure of which valve. (Valves were named by RN and none of them sounded familiar). Past Anesthesia/Blood Transfusion Reactions: Motion Sickness Additional Past Anesthesia/Blood Transfusion Reaction / Comment(s): Pt states she has never received blood. Past Psychological History: Depression Additional Psychological History / Comment(s): Pt lives in home with . Pt states she has depression and is on meds for that which have been very effective. There are adult children in the home. Pt is independent. Smoking Status: Former smoker Past Alcohol Use History: None Reported Past Drug Use History: None Reported - Past Family History Sister(s) Family Medical History: Myocardial Infarction (MS) Additional Family Medical History / Comment(s): at age 43 if MS Mother Family Medical History: Myocardial Infarction (MS) Additional Family Medical History / Comment(s): Mother at age 62 of MS. Father Family Medical History: Myocardial Infarction (MS) Additional Family Medical History / Comment(s): Father in his 40's of a MS. Medications and Allergies Home Medications Medication Instructions Recorded Confirmed Type Albuterol Nebulized [Ventolin 2.5 mg INHALATION RT-QID 07/07/13 08/22/16 History Nebulized] Venlafaxine HCl [Effexor XR] 150 mg PO BID 01/12/15 08/22/16 History Tiotropium [place] [Spiriva] 1 cap INHALATION RT-DAILY 03/09/15 08/22/16 History Budesonide-Formot 160-4.5 Mcg 2 puff INHALATION RT-BID 08/20/15 08/22/16 History [Symbicort 160-4.5 Mcg Inhaler] Vitamin A 8,000 unit PO HS 07/02/16 08/22/16 History Baclofen [Lioresal] 20 mg PO TID 08/22/16 08/22/16 History Calcium Carb/Vitamin D3/Vit K1 1 tab PO DAILY 08/22/16 08/22/16 History [Citracal Soft Chew] Cholecalciferol (Vitamin D3) 2,000 unit PO DAILY 08/22/16 08/22/16 History [Vitamin D3] Metoprolol Tartrate [Lopressor] 12.5 mg PO BID 08/23/16 08/23/16 History Multivitamins, Thera [Multivitamin 1 tab PO DAILY 08/23/16 08/23/16 History (formulary)] Allergies Allergy/AdvReac Type Severity Reaction Status Date / Time Mushroom AdvReac Nausea & Verified 08/22/16 22:20 Vomiting Physical Exam Vitals: Vital Signs Temp Pulse Pulse Resp BP BP Pulse Ox 08/23/16 12:00 96.9 F L 101 H 16 126/78 97 08/23/16 08:00 96.9 F L 102 H 18 122/79 96 08/23/16 04:00 97.1 F L 102 H 18 125/92 97 08/23/16 03:46 119 H 18 131/88 97 08/23/16 00:12 99 18 146/95 100 08/22/16 22:16 96.9 F L 117 H 28 H 141/94 98 Intake and Output 08/22/16 08/23/16 08/23/16 22:59 06:59 14:59 Other: Voiding Method Toilet Toilet Weight 75.296 kg 75.7 kg PHYSICAL EXAMINATION: HEENT: Head is atraumatic, normocephalic. Pupils equal, round. Neck is supple. There is no elevated jugular venous pressure. HEART EXAMINATION: Heart sounds regular, S1 and S2 normal. No murmur or gallop heard. CHEST EXAMINATION: Lungs are clear to auscultation and precussion. No chest wall tenderness is noted on palpation or with deep breathing. Midsternal incision well-healed. ABDOMEN: Soft, nontender. Bowel sounds are heard. No organomegaly noted. EXTREMITIES: 2+ peripheral pulses with no evidence of peripheral edema and no calf tenderness noted. NEUROLOGIC patient is awake, alert and oriented x3. . Results 08/22/16 23:02 08/22/16 23:02 Cardiac Enzymes 08/22/16 08/22/16 08/23/16 Range/Units 23:02 23:02 02:04 AST 63 H (14-36) U/L CK-MB (CK-2) 0.7 (0.0-2.4) ng/mL Troponin I 0.047 H* 0.040 H* (0.000-0.034) ng/mL Coagulation 08/22/16 Range/Units 23:02 PT 11.6 (9.0-12.0) sec APTT 26.0 (22.0-30.0) sec CBC 08/22/16 Range/Units 23:02 WBC 6.8 (3.8-10.6) k/uL RBC 4.45 (3.80-5.40) m/uL Hgb 12.8 (11.4-16.0) gm/dL Hct 37.6 (34.0-46.0) % Plt Count 234 (150-450) k/uL Comprehensive Metabolic Panel 08/22/16 Range/Units 23:02 Sodium 137 (137-145) mmol/L Potassium 4.2 (3.5-5.1) mmol/L Chloride 105 (98-107) mmol/L Carbon Dioxide 21 L (22-30) mmol/L BUN 10 (7-17) mg/dL Creatinine 0.90 (0.52-1.04) mg/dL Glucose 116 H (74-99) mg/dL Calcium 9.2 (8.4-10.2) mg/dL AST 63 H (14-36) U/L ALT 55 H (9-52) U/L Alkaline Phosphatase 230 H (38-126) U/L Total Protein 7.5 (6.3-8.2) g/dL Albumin 3.6 (3.5-5.0) g/dL Current Medications Generic Name Dose Route Start Last Admin Trade Name Freq PRN Reason Stop Dose Admin Aspirin 325 mg 08/23/16 10:25 08/23/16 11:38 Aspirin PO 325 mg DAILY OMAR Administration Atorvastatin Calcium 40 mg 08/23/16 10:30 08/23/16 11:38 Lipitor PO 40 mg DAILY OMAR Administration Clopidogrel Bisulfate 75 mg 08/23/16 10:30 08/23/16 11:38 Plavix PO 75 mg DAILY OMAR Administration Enoxaparin Sodium 40 mg 08/23/16 09:00 08/23/16 10:08 Lovenox SQ 40 mg DAILY OMAR Administration Hydromorphone HCl 1 mg 08/23/16 04:29 08/23/16 10:08 Dilaudid IVP 1 mg Q3HR PRN Administration Pain Sodium Chloride 1,000 mls @ 100 mls/hr 08/23/16 03:13 08/23/16 05:58 Saline 0.9% IV 08/23/16 13:12 100 mls/hr .Q10H STA Administration Metoprolol Tartrate 12.5 mg 08/23/16 10:30 08/23/16 11:38 Lopressor PO 12.5 mg BID OMAR Administration Miscellaneous Information 1 each 08/23/16 03:23 Rx Info: Iv Contrast Was Given MISCELLANE 08/25/16 03:23 DAILY PRN Per Protocol Ondansetron HCl 4 mg 08/23/16 03:13 Zofran IVP Q6HR PRN Nausea And Vomiting Pantoprazole Sodium 40 mg 08/23/16 09:00 08/23/16 10:08 Protonix IVP 40 mg DAILY OMAR Administration Venlafaxine HCl 150 mg 08/23/16 12:00 Effexor Xr PO BID OMAR Intake and Output 08/22/16 08/23/16 08/23/16 22:59 06:59 14:59 Other: Voiding Method Toilet Toilet Weight 75.296 kg 75.7 kg 08/22/16 23:02 08/22/16 23:02 Assessment and Plan Plan: Assessment and plan #1 recent mitral valve replacement #2 atypical chest discomfort with mildly elevated troponins not consistent with myocardial ischemia, most recent cardiac catheterization less than 2 months ago showed LAD lesion of 40%. #3 hypertension #4 prior gastric bypass From cardiology perspective, elevated troponins are not reflective of myocardial ischemia. Will review 2-D echo with Doppler and if this is okay patient may be discharged home today in follow up in the office as previously scheduled. ENTER[employer] SOLUT[employer] ARCHITECT note has been reviewed, I agree with a documented findings and plan of care. Patient was seen and examined.
--- NOTE | 2016-08-23 13:27 | P.CONS ---
History of Present Illness - Reason for Consult Consult date: 08/23/16 Medical management Requesting physician: Rayne Fleming - Chief Complaint Nausea vomiting - History of Present Illness This is a 56-year-old female with a known past medical history of recent mitral valve replacement about 4 weeks ago, diabetes mellitus, pulmonary hypertension, hypertension, TIA, COPD, CHF, Shipman's esophagus, previous gastric bypass surgery, fatty liver disease. Patient presents to the emergency room after eating it currently and bread yesterday. She felt it go down into her stomach and then felt that it got stuck. She was dry heaving and had some vomit only small amounts, due to her gastric bypass. She started to have chest discomfort from the dry heaves. She presented to the emergency room for further evaluation. She was found to have some mildly elevated troponins 0.047 and 0.040. I had abdominal x-ray had shown ileus versus small bowel obstruction. She was admitted to the hospital for a possible small bowel obstruction. Admitted under surgical service and we were consulted for medical management. A computed tomography scan of the abdomen had shown no evidence of bowel obstruction did show hepatomegaly and gastric bypass surgery. Patient was also evaluated by cardiology and cardiothoracic surgeon. Echocardiogram was ordered them for evaluation of the valves. Cardiology felt that the troponins were not elevated due to any cardiac causes. Patient has had no further vomiting or nausea. She is feeling better. Her chest discomfort is improved as well. She denies any shortness of breath. Denies any bowel movement changes or urinary symptoms. Denies any fevers chills or sweats. Review of Systems Please refer to HPI otherwise unremarkable Past Medical History Past Medical History: Heart Failure, COPD, CVA/TIA, GERD/Reflux, Hypertension, Osteoarthritis (OA) Additional Past Medical History / Comment(s): Past SHIPMAN'S ESOPHAGUS- surgically removed, past hiatal hernia, chronic back and neck pain, stroke 2015 with L arm weakness, chronic bronchitis, sinus problems, migraines in past , athritis bilateral knees and in neck, past tooth abscess. History of Any Multi-Drug Resistant Organisms: None Reported Past Surgical History: Appendectomy, Back Surgery, Bariatric Surgery, Section, Cholecystectomy, Joint Replacement, Tubal Ligation Additional Past Surgical History / Comment(s): BACK SX X2 including a fusion, has CLC implanted in back (tens unit), cervical fusion, 9- LAP GABRIEL EN Y, EGDs and EGD with dilation and removal of a staple that had migrated, colonoscopy/benign polypectomy, bilateral knee injections, 07/24/16: Open heart sx with valve replacement...patient unsure of which valve. (Valves were named by RN and none of them sounded familiar). Past Anesthesia/Blood Transfusion Reactions: Motion Sickness Additional Past Anesthesia/Blood Transfusion Reaction / Comm: Pt states she has never received blood. Past Psychological History: Depression Additional Psychological History / Comment(s): Pt lives in home with . Pt states she has depression and is on meds for that which have been very effective. There are adult children in the home. Pt is independent. Smoking Status: Former smoker Past Alcohol Use History: None Reported Past Drug Use History: None Reported - Past Family History Sister(s) Family Medical History: Myocardial Infarction (NC) Additional Family Medical History / Comment(s): at age 43 if NC Mother Family Medical History: Myocardial Infarction (NC) Additional Family Medical History / Comment(s): Mother at age 62 of [place]. Father Family Medical History: Myocardial Infarction ([place]) Additional Family Medical History / Comment(s): Father in his 40's of a NC. Medications and Allergies Home Medications Medication Instructions Recorded Confirmed Type Albuterol Nebulized [Ventolin 2.5 mg INHALATION RT-QID 07/07/13 08/22/16 History Nebulized] Venlafaxine HCl [Effexor XR] 150 mg PO BID 01/12/15 08/22/16 History Tiotropium [place] [Spiriva] 1 cap INHALATION RT-DAILY 03/09/15 08/22/16 History Budesonide-Formot 160-4.5 Mcg 2 puff INHALATION RT-BID 08/20/15 08/22/16 History [Symbicort 160-4.5 Mcg Inhaler] Vitamin A 8,000 unit PO HS 07/02/16 08/22/16 History Baclofen [Lioresal] 20 mg PO TID 08/22/16 08/22/16 History Calcium Carb/Vitamin D3/Vit K1 1 tab PO DAILY 08/22/16 08/22/16 History [Citracal Soft Chew] Cholecalciferol (Vitamin D3) 2,000 unit PO DAILY 08/22/16 08/22/16 History [Vitamin D3] Metoprolol Tartrate [Lopressor] 12.5 mg PO BID 08/23/16 08/23/16 History Multivitamins, Thera [Multivitamin 1 tab PO DAILY 08/23/16 08/23/16 History (formulary)] Allergies Allergy/AdvReac Type Severity Reaction Status Date / Time Mushroom AdvReac Nausea & Verified 08/22/16 22:20 Vomiting Physical Exam Vitals: Vital Signs Temp Pulse Pulse Resp BP BP Pulse Ox 08/23/16 12:00 96.9 F L 101 H 16 126/78 97 08/23/16 08:00 96.9 F L 102 H 18 122/79 96 08/23/16 04:00 97.1 F L 102 H 18 125/92 97 08/23/16 03:46 119 H 18 131/88 97 08/23/16 00:12 99 18 146/95 100 08/22/16 22:16 96.9 F L 117 H 28 H 141/94 98 Intake and Output 08/22/16 08/23/16 08/23/16 22:59 06:59 14:59 Other: Voiding Method Toilet Toilet Weight 75.296 kg 75.7 kg Head normocephalic Neck supple Lungs clear to auscultation bilaterally no wheezing or crackles Heart regular rate and rhythm S1-S2, no rub or gallop Abdomen is soft nontender nondistended positive bowel sounds no hepatosplenomegaly Extremities no edema Neuro alert and orientated to 3 Results CBC & Chem 7: 08/22/16 23:02 08/22/16 23:02 Labs: Abnormal Lab Results - Last 24 Hours (Table) 08/22/16 08/22/16 08/22/16 Range/Units 23:02 23:02 23:02 RDW 22.4 H (11.5-15.5) % Carbon Dioxide 21 L (22-30) mmol/L Glucose 116 H (74-99) mg/dL AST 63 H (14-36) U/L ALT 55 H (9-52) U/L Alkaline Phosphatase 230 H (38-126) U/L Troponin I 0.047 H* (0.000-0.034) ng/mL Ur Specific [place] (1.001-1.035) Urine Nitrite (Negative) Ur Leukocyte Esterase (Negative) Urine Bacteria (None) /hpf 06/30/17 06/30/17 Range/Units 02:04 10:15 RDW (11.5-15.5) % Carbon Dioxide (22-30) mmol/L Glucose (74-99) mg/dL AST (14-36) U/L ALT (9-52) U/L Alkaline Phosphatase (38-126) U/L Troponin I 0.040 H* (0.000-0.034) ng/mL Ur Specific [place] 1.041 H (1.001-1.035) Urine Nitrite Positive H (Negative) Ur Leukocyte Esterase Small H (Negative) Urine Bacteria Rare H (None) /hpf Assessment and Plan Plan: 1. Nausea with dry heaves with possible ileus: Computed tomography scan of the abdomen and pelvis showed no evidence of obstruction or free air. Patient's symptoms resolved. Patient was started on diet and tolerating it 2. History of mitral valve replacement about 4 weeks ago for severe mitral valve regurgitation 3. History of moderate pulmonary hypertension 4. History of Shipman's esophagus 5. History of gastric bypass surgery 6. History of depression resume the Effexor 7. Chest pain with Elevated troponins evaluated by cardiology service and felt that this was not consistent with myocardial ischemia. Likely her chest discomfort is musculoskeletal due to the dry heaves. 8. History of TIA 9. Essential hypertension 10. History of COPD: Resume nebulizer treatments. No evidence of exacerbation 11. History of chronic diastolic CHF: No evidence of exacerbation 12. History of fatty liver disease and a past history of heavy alcohol use. Patient does have mildly elevated LFTs. Continue to follow-up outpatient. Patient is medically stable for discharge if cleared by all consulting physicians and after will receive echo results. Thank you for this consultation and allowing us to participate in this patient' s care. Time with Patient: Greater than 30 (Greater than 50% of the total time spent in counseling and coordination of care.I performed an examination of the patient and discussed their management with the physician Telescope Operator. I have reviewed the Physician Telescope Operator's notes and agree with the documented findings and plan of care)
[2016-08-23] MEDS ORDERED: DOCUSATE 100 MG CAP PO PRN (14:26)
--- NOTE | 2016-08-23 14:28 | P.DS ---
Providers Date of admission: 08/23/16 03:18 Expected date of discharge: 08/23/16 Attending physician: Sindy Oden Consults: 08/23/16 04:30 Consult Physician Routine Consulting Provider: Nael Hager Consult Reason/Comments: medical management Do you want consulting provider notified?: Yes 08/23/16 06:59 Consult Physician Stat Consulting Provider: Cory Vanessa Consult Reason/Comments: elevated troponin Do you want consulting provider notified?: Yes 08/23/16 09:36 Consult Physician Stat Consulting Provider: Tyron Falk Consult Reason/Comments: Recent cardiac surgery Do you want consulting provider notified?: Yes Primary care physician: Nael Madan [place] [facility] Course: 56-year-old female presented on the day of admission to the emergency room to be evaluated for an episode of nausea with dry heaves after eating a piece of bread. Patient stated that it felt like it got caught her stomach created a sensation of nausea she started having dry heaves could only vomited up a small amount. Patient does have a history of gastric bypass surgery done [place] [address] Fleming for morbid obesity. States since surgery should been doing relatively well. States that she did see Dr. Fleming couple weeks ago in the clinic Additionally the patient just recently underwent on 07/24/2016 mitral valve replacement for severe mitral valve regurgitation additionally the patient did undergo a heart catheterization less than 2 months ago it did show LAD lesion of 40% otherwise an unremarkable study. Troponins were noted to be mildly elevated Patient did have a CAT scan of the abdomen pelvis in the emergency room it showed no evidence of a bowel obstruction it did show hepatomegaly and evidence of gastric bypass surgery. Patients being seen this morning is currently denying any nausea vomiting denies any change in bowel habits denies any frequent loose stools is asking for diet to be advanced patient currently is up ambulating in the room and appears in no acute distress continues to deny any chest pain or shortness of breath denying abdominal pain as well patient states that she normally has a bowel movement every 2-3 days does not have frequent loose stools nor does she have constipation issues The echocardiogram was reviewed by cardiology service who indicated there was no further cardiac workup at this time Patient was admitted to the services of the attending with a cardiology and medicine eval requested. Additionally patient was seen by cardiothoracic surgeon Dr. Girard this morning who indicated there was no further cardiac workup indicated at this time patient was just seen in the cardiovascular surgeon's office the day before Multiple consulting physicians patient was felt to be hemodynamically stable and appropriate to proceed with a discharge Impression Present on admission intractable nausea with dry heaves with a CAT scan of the abdomen pelvis with IV contrast shows no evidence of obstruction or free air resolved A recent mitral valve replacement bioprosthesia mosaic done on 07/24/2016 for severe mitral valve regurgitation with evidence of rheumatic features History of moderate pulmonary hypertension Esophageal reflux disease History of barrette esophagus A recent 11/06/2015 gastric bypass surgery laparoscopic Cherie-en-y for morbid obesity due to excessive caloric intake has lost 100 pounds since procedure BMI was reduced from 45 to 26.9 Chronic congestive heart failure diastolic dysfunction no evidence of an exacerbation Prior history of active tobacco abuse now in remission Depressive disorder with nonspecified Prior history of a stroke and a TIA no deficits Chronic pain syndrome with narcotic dependency Mildly elevated troponins Heart catheterization within the last 8 weeks showed less than 40% lesion of the LAD History of COPD stable no evidence of an exacerbation History of fatty liver disease and a remote history of heavy alcohol use has mildly elevated LFTs The above impression and plan of care have been discussed and directed by signing physician. Grace Parekh nurse practitioner acting as scribe for signing physician. Patient Condition at Discharge: Fair Plan - Discharge Summary New Discharge Prescriptions: Continue Albuterol Nebulized [Ventolin Nebulized] 2.5 mg INHALATION RT-QID Venlafaxine HCl [Effexor XR] 150 mg PO BID Tiotropium [place] [Spiriva] 1 cap INHALATION RT-DAILY Budesonide-Formot 160-4.5 Mcg [Symbicort 160-4.5 Mcg Inhaler] 2 puff INHALATION RT-BID Vitamin A 8,000 unit PO HS Aspirin 325 mg PO DAILY #30 tab Atorvastatin [Lipitor] 40 mg PO DAILY #30 tab Clopidogrel [Plavix] 75 mg PO DAILY #30 tab Pantoprazole [Protonix] 40 mg PO AC-BRKFST #30 tab oxyCODONE-APAP 10-325MG [Percocet 10-325 mg] 1 tab PO Q6HR #120 Ferrous Sulfate [Iron (65 MG Elemental)] 325 mg PO BID #60 tab Baclofen [Lioresal] 20 mg PO TID Calcium Carb/Vitamin D3/Vit K1 [Citracal Soft Chew] 1 tab PO DAILY Cholecalciferol (Vitamin D3) [Vitamin D3] 2,000 unit PO DAILY Metoprolol Tartrate [Lopressor] 12.5 mg PO BID Multivitamins, Thera [Multivitamin (formulary)] 1 tab PO DAILY Discharge Medication List Albuterol Nebulized [Ventolin Nebulized] 2.5 mg INHALATION RT-QID 07/07/13 [ History] Venlafaxine HCl [Effexor XR] 150 mg PO BID 01/12/15 [History] Tiotropium [place] [Spiriva] 1 cap INHALATION RT-DAILY 03/09/15 [History] Budesonide-Formot 160-4.5 Mcg [Symbicort 160-4.5 Mcg Inhaler] 2 puff INHALATION RT-BID 08/20/15 [History] Vitamin A 8,000 unit PO HS 07/02/16 [History] Aspirin 325 mg PO DAILY #30 tab 07/29/16 [Rx] Atorvastatin [Lipitor] 40 mg PO DAILY #30 tab 07/29/16 [Rx] Clopidogrel [Plavix] 75 mg PO DAILY #30 tab 07/29/16 [Rx] Ferrous Sulfate [Iron (65 MG Elemental)] 325 mg PO BID #60 tab 07/29/16 [Rx] Pantoprazole [Protonix] 40 mg PO AC-BRKFST #30 tab 07/29/16 [Rx] oxyCODONE-APAP 10-325MG [Percocet 10-325 mg] 1 tab PO Q6HR #120 07/29/16 [Rx] Baclofen [Lioresal] 20 mg PO TID 08/22/16 [History] Calcium Carb/Vitamin D3/Vit K1 [Citracal Soft Chew] 1 tab PO DAILY 08/22/16 [ History] Cholecalciferol (Vitamin D3) [Vitamin D3] 2,000 unit PO DAILY 08/22/16 [History] Metoprolol Tartrate [Lopressor] 12.5 mg PO BID 08/23/16 [History] Multivitamins, Thera [Multivitamin (formulary)] 1 tab PO DAILY 08/23/16 [History ] Follow up Appointment(s)/Referral(s): Nael Hager MD [Primary Care Provider] - 1 Week Rayne Fleming MD [STAFF PHYSICIAN] - 2 Weeks Discharge Disposition: HOME WITH HOME HEALTH SERVICES
--- NOTE | 2016-08-23 14:41 | ECHOF ---
Referral Reason:elevated trop MEASUREMENTS -------- HEIGHT: 165.1 cm WEIGHT: 75.3 kg BP: 125/92 IVSd: 1.2 cm (0.6 - 1.1) LVIDd: 5.1 cm (3.9 - 5.3) LVPWd: 1.2 cm (0.6 - 1.1) LVIDs: 4.1 cm LA Diam: 4.4 cm (2.7 - 3.8) RVIDd: 3.2 cm (< 3.3) LAESV Index (A-L): 63.70 ml/m Ao Diam: 3.6 cm (2.0 - 3.7) LA Diam: 4.2 cm (2.7 - 3.8) AV Cusp: 1.8 cm (1.5 - 2.6) MV E David: 1.44 m/s MV DecT: 230 ms MV A David: 1.66 m/s MV E/A Ratio: 0.86 RAP: 5.00 mmHg RVSP: 49.85 mmHg FINDINGS -------- Sinus rhythm. This was a technically adequate study. There is borderline concentric left ventricular hypertrophy. Overall left ventricular systolic function is low-normal with, an EF between 50 - 55 %. The right ventricle is normal in size. LA is severely dilated >40 ml/m2 The right atrial size is normal. There is mild aortic valve sclerosis. There is no evidence of aortic regurgitation. The peak and mean MV gradients are 14.98mmHg 8.10mmHg as measured by doppler. Normally functioning bioprosthetic mitral valve. Mild tricuspid regurgitation present. There is mild pulmonary hypertension. The right ventricular systolic pressure, as measured by Doppler, is 49.85mmHg. There is no pulmonic regurgitation present. The aortic root size is normal. There is no pericardial effusion. CONCLUSIONS -------- 1. There is borderline concentric left ventricular hypertrophy. 2. There is no pulmonic regurgitation present. 3. The aortic root size is normal. 4. There is no pericardial effusion. 5. Overall left ventricular systolic function is low-normal with, an EF between 50 - 55 %. 6. LA is severely dilated >40 ml/m2 7. There is mild aortic valve sclerosis. 8. The peak and mean MV gradients are 14.98mmHg 8.10mmHg as measured by doppler. 9. Normally functioning bioprosthetic mitral valve. 10. Mild tricuspid regurgitation present. 11. There is mild pulmonary hypertension. 12. The right ventricular systolic pressure, as measured by Doppler, is 49.85mmHg. WELDER ASSEMBLER: Tammy Leiva RDCS
[2016-08-23] MEDS ORDERED: ALBUTEROL NEBULIZED 2.5 MG/3 ML INHALATION SCH (16:00)
[2016-08-23] MEDS ORDERED: BACLOFEN 10 MG TAB PO SCH (16:00)
[2016-08-23 16:22] VITALS: PULSE 90
[2016-08-23] MEDS ORDERED: SYMBICORT 160-4.5 MCG INHALER INHALATION SCH (20:00)
[2016-08-23] MEDS ORDERED: VITAMIN A 10,000 UNIT CAPSULE PO SCH (21:00)
[2016-08-23] MEDS ORDERED: FERROUS SULFATE 325 MG TAB PO SCH (21:00)
[2016-08-24] MEDS ORDERED: TIOTROPIUM 18 MCG/PUFF INHALER INHALATION SCH (08:00)
[2016-08-24] MEDS ORDERED: CALCIUM CARB-VIT D 500MG-200UN 1 EACH TAB PO SCH (09:00)
[2016-08-24] MEDS ORDERED: CHOLECALCIFEROL 1,000 UNIT TAB PO SCH (09:00)
[2016-08-24] MEDS ORDERED: MULTIVITAMINS, THERA 1 EACH TAB PO SCH (12:00)
== END 2016-08-23 20:06 | disposition home health service (06) | DRG 392 ==
LOC: EC 22:08 → 6SEL 08-23 03:18
PROVIDERS: ADMIT Surgery; ATTEND Surgery
DX: R11.2 Nausea with vomiting, unspecified (principal); F11.20 Opioid dependence, uncomplicated; I50.32 Chronic diastolic (congestive) heart failure; I69.954 Hemiplegia and hemiparesis following unspecified cerebrovascular disease affecting left non-dominant side; I27.2 Other secondary pulmonary hypertension; I11.0 Hypertensive heart disease with heart failure; I08.1 Rheumatic disorders of both mitral and tricuspid valves; E11.9 Type 2 diabetes mellitus without complications; F32.9 Major depressive disorder, single episode, unspecified; G89.4 Chronic pain syndrome; J44.9 Chronic obstructive pulmonary disease, unspecified; K21.9 Gastro-esophageal reflux disease without esophagitis; K76.0 Fatty (change of) liver, not elsewhere classified; M79.7 Fibromyalgia; G43.909 Migraine, unspecified, not intractable, without status migrainosus; K44.9 Diaphragmatic hernia without obstruction or gangrene; M54.2 Cervicalgia; M54.9 Dorsalgia, unspecified; R16.2 Hepatomegaly with splenomegaly, not elsewhere classified; R74.8 Abnormal levels of other serum enzymes; M47.9 Spondylosis, unspecified; M17.0 Bilateral primary osteoarthritis of knee; Z98.84 Bariatric surgery status; Z95.2 Presence of prosthetic heart valve; Z79.02 Long term (current) use of antithrombotics/antiplatelets; Z79.82 Long term (current) use of aspirin; Z79.899 Other long term (current) drug therapy; Z87.891 Personal history of nicotine dependence; Z96.60 Presence of unspecified orthopedic joint implant; Z82.49 Family history of ischemic heart disease and other diseases of the circulatory system
CPT/HCPCS: 36415; 74022; 74177; 80053; 81001; 82550; 82553; 83605; 83735; 84484; 85025; 85610; 85730; 87040; 87077; 87086; 87186; 93005; 93306; 94640; 96374; 96375; 99291

== ENCOUNTER → 2016-09-26 | Outpatient (CLI) | payer MEDICARE ==
--- NOTE | 2016-09-26 13:21 | XR ---
EXAMINATION TYPE: XR chest 2V DATE OF EXAM: 09/26/2016 COMPARISON: 07/28/2016 HISTORY: Sharp stabbing pain in the sternal area. TECHNIQUE: Frontal and lateral views of the chest are obtained. FINDINGS: There is no focal air space opacity, pleural effusion, or pneumothorax seen. Postoperative changes are again seen of the chest including intact midline sternotomy wires, mediastinal clips, an d aortic valvular replacement. Intrathecal thoracic stimulator is noted as are mild degenerative plaza ges of the thoracic spine. Cervical fusion device is also incidentally noted. The cardiac silhouette size is within normal limits. The osseous structures are intact. IMPRESSION: 1. Intact midline sternotomy wires and postsurgical changes of the chest with no radiographic abnorma lity to correspond to the patient's sharp stabbing sternal pain. 2. No acute cardiopulmonary process.
== END | disposition home or self-care (01) ==
LOC: RADXRMAIN 12:32
PROVIDERS: ATTEND Surgery
DX: Z45.018 Encounter for adjustment and management of other part of cardiac pacemaker (principal); R07.2 Precordial pain; Z98.890 Other specified postprocedural states
CPT/HCPCS: 71020

== ENCOUNTER → 2016-10-30 | Outpatient (CLI) | payer MEDICARE, OTHER ==
[2016-10-30 15:13] VITALS: BP 112/74; PULSE 102; TEMP 97.1; BMI 26.3
[2016-10-30 15:28] VITALS: RESP 16
[2016-10-30 16:22] LABS: CH 26.6; CHCM 32.8; HCT 39.7 % (34.0-46.0); HDW 2.71; HGB 12.7 gm/dL (11.4-16.0); MCH 26.1 pg (25.0-35.0); MCHC 32.1 g/dL (31.0-37.0); MCV 81.3 fL (80.0-100.0); Mean Platelet Volume 8.8; RBC 4.88 m/uL (3.80-5.40); RDW 15.6 % (11.5-15.5); WBC 5.4 k/uL (3.8-10.6)
[2016-10-30 16:30] LABS: INR 1.1 (<1.2); Partial Thromboplastin Time 26.3 sec (22.0-30.0); Prothrombin Time 10.9 sec (9.0-12.0)
[2016-10-30 16:43] LABS: ALT 52 U/L (9-52); AST 42 U/L (14-36); Alkaline Phosphatase 182 U/L (38-126); Anion Gap 7 mmol/L; Blood Urea Nitrogen 12 mg/dL (7-17); Carbon Dioxide 28 mmol/L (22-30); Chloride 104 mmol/L (98-107); Cholesterol 129 mg/dL (<200); Glucose 79 mg/dL (74-99); HDL Cholesterol 50 mg/dL (40-60); Iron 52 ug/dL (37-170); Magnesium 1.9 mg/dL (1.6-2.3); Non-African American GFR(MDRD) >60 (>60 ml/min/1.73 sqM); Phosphorus 3.9 mg/dL (2.5-4.5); Potassium 5.1 mmol/L (3.5-5.1); Sodium 139 mmol/L (137-145); Total Bilirubin 0.5 mg/dL (0.2-1.3); Total Protein 7.6 g/dL (6.3-8.2)
[2016-10-30 16:52] LABS: % Iron Saturation 12.8 % (20-50); Total Iron Binding Capacity 405 ug/dL (265-497)
[2016-10-30 17:30] LABS: Vitamin B12 567 pg/mL (239-931)
[2016-10-30 20:11] LABS: Hemoglobin A1C 5.4 % (4.2-6.1)
[2016-11-02 14:39] LABS: Selenium 92 mcg/L (63-160)
--- NOTE | 2016-11-23 17:44 | P.PN ---
Progress Note - Text DATE OF SERVICE: 10/30/2016 CHIEF COMPLAINT: Follow-up gastric bypass. HISTORY OF PRESENT ILLNESS: Kassy Lopez is a 55-year-old female status post gastric bypass on 11/06/2015. She is now 1 year out. Her ideal body weight for a 5' 6" frame is 154 pound. Her highest weight was 278 pounds. Today she comes in weighing 163 pounds. She has lost 115 pounds. Since her last follow-up 2.5 months ago, she has gained 2 pounds. Body mass index is reduced from 45 down to 26.3. Her percent excess weight loss is 93 %. She comes in with problems with her pannus. She reports chronic back pain. She is developed ulcerations. Her weight is now stable after 2-3 months. She has been treated with prescribed antifungal therapy with minimal improvement. She presents for evaluation for panniculectomy. PAST MEDICAL HISTORY: 1. Hernandez esophagus. 2. Gastroesophageal reflux disease, now resolved. 3. Osteoarthritis, now resolved. 4. Diabetes type 2 with gastroparesis, now resolved. 5. Depression. 6. Hypertension, now resolved. 7. Chronic obstructive pulmonary disease, now improved. 8. History of congestive heart failure. PAST SURGICAL HISTORY: 1. Back surgery x3 including fusion. 2. TENS unit infusion. 3. Neck fusion. 4. Right knee injections. 5. Colonoscopy. 6. Upper endoscopy. 7. Appendectomy. 8. section. 9. Cholecystectomy. 10. Tubal ligation. 11. Status post gastric bypass. 12. Cardiac catheterization. 13. Valvular replacement, 07/24/2016 MEDICATIONS: 1. Percocet. 2. Effexor. 3. Spiriva. 4. Omeprazole. 5. Lopressor 6. Symbicort. 7. Baclofen. 8. Albuterol inhaler. 9. Albuterol nebulizer. 10. Plavix. 11. Lipitor. ALLERGIES: MUSHROOM. FAMILY HISTORY: Denies any Crohn's disease or ulcerative colitis. Denies any lupus within her family. SOCIAL HISTORY: Active tobacco user over 25 years, 1 pack per day and now in remission. REVIEW OF SYSTEMS: CONSTITUTIONAL: Her ideal body weight for a 5' 6" frame is 154 pound. Her highest weight was 278 pounds. Today she comes in weighing 163 pounds. She has lost 115 pounds. Since her last follow-up 2.5 months ago, she has gained 2 pounds. Body mass index is reduced from 45 down to 26.3. Her percent excess weight loss is 93 %. ENDOCRINE: Resolved diabetes type 2. No hypothyroidism. RESPIRATORY: Resolved obstructive sleep apnea. No asthma. CARDIOVASCULAR: Resolved prolonged QT. Hypertension is now resolved. History of valvular replacement for congestive heart failure. GASTROINTESTINAL: No reports of dumping syndrome. Gastroesophageal reflux disease is completely resolved. HEENT: She had removal of her mandibular tooth abscess. She still has poor dentition and requires extraction of all her teeth. Future dentures are pending at this time. MUSCULOSKELETAL: Reports osteoarthritis of the back including hips. NEURO: No reports of recent stroke or seizure disorder. History of chronic pain. HEMATOLOGIC: No recent DVTs or pulmonary embolisms. PSYCH: History chronic pain including depression. Slight to moderate reduction in her antidepressant medications. PHYSICAL EXAM: VITAL SIGNS: 5 foot 6, 163 pounds. Body mass is 26.3. Vital Signs Temp 97.1 F L 10/30/16 15:27 Pulse 102 H 10/30/16 15:27 Resp 16 10/30/16 15:27 BP 112/74 10/30/16 15:27 Pulse Ox ABDOMEN: Soft, nontender, nondistended. No palpable incisional hernias. Pannus hangs over pubis by 5 cm. Hyperemia consistent with panniculitis. Weight of pannus of 2 pounds. MUSCULOSKELETAL: No clubbing, cyanosis, or edema. GENERAL: Well-developed female in no acute distress. CARDIOVASCULAR: Tachycardic, 2+ distal pulses. HEENT: Head atraumatic, normocephalic. No nasal drainage. Hears is conversational speech. CHEST: Nonlabored respirations. Equal bilateral excursions. NECK: Supple without lymphadenopathy. NEURO: No focal or lateralizing signs. Cranial nerves II through XII grossly intact. PSYCH: Appropriate affect. Alert and oriented to person, place and time. SKIN: Well perfused. Good skin turgor. ASSESSMENT: 1. Morbid obesity and excess calories. 2. Body mass index reduced from 45.0 down to 26.3 3. Status post gastric bypass. 4. Restless leg syndrome. 5. Obstructive sleep apnea, resolved. 6. Secondary hyperparathyroidism. 7. Thiamine deficiency, resolved. 8. Hypertriglyceridemia. 9. Prior history of active tobacco use, now in remission. 10. Pvk-weloijf-jzytzvwhu type 2 diabetes, resolved. 11. Diabetic gastroparesis. 12. History of gout. 13. History of Hernandez's esophagus. 14. Chronic obstructive pulmonary disease. 15. Vitamin D deficiency, resolved 16. Hyperlipidemia. 17. Congestive heart failure from hypertension. 18. Iron deficiency anemia. 19. Vitamin A deficiency. 20. Hypertensive heart disease, resolved. 21. Status post valvular replacement. 22. Panniculitis. PLAN: 1. Her weight lies has appeared to stabilize the last 2-3 months. She is noted 1 year anniversary. 2. Recommend bariatric panel for labs. 3. She has achieved over 100 pound weight loss otherwise 93% excess weight loss. 4. A panniculectomy packet was described and reviewed. Benefits and risks of procedure including bleeding, infection, loss of flap, cosmetic deformity, postoperative seroma, chronic pain were reviewed in detail. 5. Recommend correction of any underlying nutritional deficiencies prior to panniculectomy. 6. Will need cardiovascular evaluation and assessment prior to additional procedures as she is a recent valvular heart replacement patient. 7. Recommend 2 week high-protein low caloric pre-operative diet to support nutrition and maximize postoperative recovery. LABS: Recommend vitamin D supplement including calcium intake of 1500 mg daily. Laboratory Last Values WBC 5.4 k/uL (3.8-10.6) 10/30/16 15:45 RBC 4.88 m/uL (3.80-5.40) 10/30/16 15:45 Hgb 12.7 gm/dL (11.4-16.0) 10/30/16 15:45 Hct 39.7 % (34.0-46.0) 10/30/16 15:45 MCV 81.3 fL (80.0-100.0) 10/30/16 15:45 MCH 26.1 pg (25.0-35.0) 10/30/16 15:45 MCHC 32.1 g/dL (31.0-37.0) 10/30/16 15:45 RDW 15.6 % (11.5-15.5) H 10/30/16 15:45 Plt Count 206 k/uL (150-450) 10/30/16 15:45 PT 10.9 sec (9.0-12.0) 10/30/16 15:45 INR 1.1 (<1.2) 10/30/16 15:45 APTT 26.3 sec (22.0-30.0) 10/30/16 15:45 Sodium 139 mmol/L (137-145) 10/30/16 15:45 Potassium 5.1 mmol/L (3.5-5.1) 10/30/16 15:45 Chloride 104 mmol/L (98-107) 10/30/16 15:45 Carbon Dioxide 28 mmol/L (22-30) 10/30/16 15:45 Anion Gap 7 mmol/L 10/30/16 15:45 BUN 12 mg/dL (7-17) 10/30/16 15:45 Creatinine 0.90 mg/dL (0.52-1.04) 10/30/16 15:45 Est GFR (MDRD) Af Amer >60 (>60 ml/min/1.73 sqM) 10/30/16 15:45 Est GFR (MDRD) Non-Af >60 (>60 ml/min/1.73 sqM) 10/30/16 15:45 Glucose 79 mg/dL (74-99) 10/30/16 15:[address] Glu mg/dL 108 mg/dL 10/30/16 15:45 Hemoglobin A1c 5.4 % (4.2-6.1) 10/30/16 15:45 Calcium 9.0 mg/dL (8.4-10.2) 10/30/16 15:45 Phosphorus 3.9 mg/dL (2.5-4.5) 10/30/16 15:45 Magnesium 1.9 mg/dL (1.6-2.3) 10/30/16 15:45 Iron 52 ug/dL (37-170) 10/30/16 15:45 TIBC 405 ug/dL (265-497) 10/30/16 15:45 % Saturation 12.8 % (20-50) L 10/30/16 15:45 Ferritin 16.8 ng/mL (10.0-291.0) 10/30/16 15:45 Total Bilirubin 0.5 mg/dL (0.2-1.3) 10/30/16 15:45 AST 42 U/L (14-36) H 10/30/16 15:45 ALT 52 U/L (9-52) 10/30/16 15:45 Alkaline Phosphatase 182 U/L (38-126) H 10/30/16 15:45 Total Protein 7.6 g/dL (6.3-8.2) 10/30/16 15:45 Albumin 3.9 g/dL (3.5-5.0) 10/30/16 15:45 Prealbumin 21.0 mg/dL (18.0-42.0) 10/30/16 15:45 Triglycerides 231 mg/dL (<150) H 10/30/16 15:45 Cholesterol 129 mg/dL (<200) 10/30/16 15:45 LDL Cholesterol, Calc 33 mg/dL (0-99) 10/30/16 15:45 HDL Cholesterol 50 mg/dL (40-60) 10/30/16 15:45 Vitamin A 56 ug/dL (38-106) 10/30/16 15:45 Vitamin B1 48 ug/L (38-122) 10/30/16 15:45 Vitamin B12 567 pg/mL (239-931) 10/30/16 15:45 Vitamin D 25-Hydroxy 24.5 ng/mL (30.0-100.0) L 10/30/16 15:45 Folate 10.1 ng/mL 10/30/16 15:45 TSH 1.190 mIU/L (0.465-4.680) 10/30/16 15:45 PTH Intact 182.6 pg/mL (14.0-72.0) H 10/30/16 15:45 Copper 1067 ug/L (810-1990) 10/30/16 15:45 Selenium 92 mcg/L (63-160) 10/30/16 15:45 Zinc 62 ug/dL (60-130) 10/30/16 15:45
== END | disposition home or self-care (01) ==
LOC: BARWHC3 14:02
PROVIDERS: ATTEND Surgery Plastic and Reconstructive Surgery
DX: E66.01 Morbid (severe) obesity due to excess calories (principal); G25.81 Restless legs syndrome; E21.1 Secondary hyperparathyroidism, not elsewhere classified; E51.9 Thiamine deficiency, unspecified; E78.1 Pure hyperglyceridemia; E11.43 Type 2 diabetes mellitus with diabetic autonomic (poly)neuropathy; K31.84 Gastroparesis; J44.9 Chronic obstructive pulmonary disease, unspecified; E78.5 Hyperlipidemia, unspecified; I11.0 Hypertensive heart disease with heart failure; I50.9 Heart failure, unspecified; D50.9 Iron deficiency anemia, unspecified; E50.9 Vitamin A deficiency, unspecified; M79.3 Panniculitis, unspecified; E89.1 Postprocedural hypoinsulinemia; D50.8 Other iron deficiency anemias; K90.89 Other intestinal malabsorption; E55.9 Vitamin D deficiency, unspecified; K74.1 Hepatic sclerosis; N19 Unspecified kidney failure; K50.90 Crohn's disease, unspecified, without complications; F32.9 Major depressive disorder, single episode, unspecified; Z68.26 Body mass index [BMI] 26.0-26.9, adult
CPT/HCPCS: 84255; 84134; 84425; 80061; 80053; 82607; 82728; 83036; 82525; 82746; 83540; 83550; 83735; 84100; 84443; 84590; 84630; 85027; 85610; 85730; 82306; 83970; 36415; G0463; 99211

== ENCOUNTER 2017-02-28 08:37 | Day surgery (SDC) | payer MEDICARE, OTHER ==
[2017-02-28 09:22] LABS: Basophils # (A) 0.1 k/uL (0-0.2); Basophils % (A) 1 %; Eosinophils % (A) 0 %; HCT 44.2 % (34.0-46.0); HGB 13.6 gm/dL (11.4-16.0); Hypochromasia Slight; Lymphocytes # (A) 2.2 k/uL (1.0-4.8); Lymphocytes % (A) 39 %; MCH 26.1 pg (25.0-35.0); MCHC 30.8 g/dL (31.0-37.0); MCV 84.8 fL (80.0-100.0); Mean Platelet Volume 8.7; Monocytes # (A) 0.4 k/uL (0-1.0); Monocytes % (A) 7 %; Neutrophils # (A) 2.9 k/uL (1.3-7.7); Neutrophils % (A) 51 %; Platelet Count 196 k/uL (150-450); RBC 5.21 m/uL (3.80-5.40); RDW 15.9 % (11.5-15.5); WBC 5.7 k/uL (3.8-10.6)
[2017-02-28] MEDS ORDERED: ALPRAZolam 0.5 MG TAB PO STA (09:25)
[2017-02-28 09:27] LABS: INR 1.1 (<1.2); Prothrombin Time 10.7 sec (9.0-12.0)
[2017-02-28 09:28] VITALS: RESP 16
[2017-02-28 09:32] LABS: ALT 64 U/L (9-52); AST 56 U/L (14-36); Albumin 4.4 g/dL (3.5-5.0); Alkaline Phosphatase 174 U/L (38-126); Anion Gap 9 mmol/L; Bilirubin, Delta 0.3 mg/dL (0.0-0.2); Calcium 9.8 mg/dL (8.4-10.2); Carbon Dioxide 29 mmol/L (22-30); Chloride 102 mmol/L (98-107); Glucose 95 mg/dL (74-99); Potassium 4.7 mmol/L (3.5-5.1); Sodium 140 mmol/L (137-145); Total Bilirubin 0.3 mg/dL (0.2-1.3); Total Protein 7.7 g/dL (6.3-8.2)
[2017-02-28 09:49] LABS: Blood Urea Nitrogen 15 mg/dL (7-17)
[2017-02-28] MEDS ORDERED: HYDROmorphone 0.5 MG/0.5 ML SYRINGE IVP ONE (10:00)
--- NOTE | 2017-02-28 10:41 | CT ---
EXAMINATION TYPE: CT biopsy liver DATE OF EXAM: 02/28/2017 COMPARISON: NONE HISTORY: Elevated liver enzymes CT DLP: 1151mGycm The procedure was explained to the patient. The risks, complications, benefits, and alternatives wer e discussed and any questions were answered. Informed consent was obtained. Patient was placed supi ne on the CT table and prepped and draped in the usual sterile fashion. All elements of maximal barrier and sterile technique utilized. Utilizing CT guidance, an 18 gauge core biopsy needle access into the right lobe of the liver was a chieved and a single 18 gauge core sample was obtained. The patient was stable throughout the proced ure and remained stable upon discharge. IMPRESSION: 1. Successful 18 gauge core biopsy of the liver.
[2017-02-28 13:46] VITALS: BP 114/74; PULSE 87
== END 2017-02-28 13:55 | disposition home or self-care (01) ==
LOC: RADPROMAIN 08:37
DX: K75.81 Nonalcoholic steatohepatitis (NASH) (principal); K74.0 Hepatic fibrosis
CPT/HCPCS: 80053; 82248; 85025; 85610; 88313; 88307; 96374; 36415; 47000; 77012; J1170

== ENCOUNTER → 2017-04-08 | Outpatient (CLI) | payer MEDICARE ==
[2017-04-08 16:10] LABS: T4, Free (Free Thyroxine) 0.8 ng/dL (0.78-2.19)
== END | disposition home or self-care (01) ==
LOC: LABWHC1 15:05
PROVIDERS: ATTEND Internal Medicine Endocrinology, Diabetes & Metabolism
DX: E04.2 Nontoxic multinodular goiter (principal)
CPT/HCPCS: 36415; 84439; 84443

== ENCOUNTER → 2017-06-12 | Outpatient (CLI) | payer MEDICARE, OTHER ==
--- NOTE | 2017-06-12 14:02 | XR ---
EXAMINATION TYPE: XR chest 2V DATE OF EXAM: 06/12/2017 COMPARISON: September 26, 2016 HISTORY: Shortness of breath TECHNIQUE: Frontal and lateral views of the chest are obtained. FINDINGS: Scattered senescent parenchymal changes noted. No evidence for infiltrate. No evidence for atelectasis. Heart size is stable. Mediastinal structures are stable and grossly unremarkable. No evidence for hilar prominence. Degenerative changes dorsal spine. IMPRESSION: 1. No evidence for acute pulmonary disease.
== END | disposition home or self-care (01) ==
LOC: RADXRMAIN 13:28
PROVIDERS: ATTEND Internal Medicine
DX: R05 Cough (principal)
CPT/HCPCS: 71046

== ENCOUNTER → 2017-07-15 | Outpatient (CLI) | payer MEDICARE, OTHER ==
--- NOTE | 2017-07-15 15:18 | XR ---
EXAMINATION TYPE: XR cervical spine comp DATE OF EXAM: 07/15/2017 COMPARISON: NONE HISTORY: Radiculopathy cervical fusion TECHNIQUE: Cervical spine is examined in 5 views. FINDINGS: Small amount of vascular calcification may be at the right carotid region. There is an anterior cervical fusion between C5 and T1. Foramen are patent. Disc spaces are utilized C5-6 C6-7 C7-T1. Prevertebral space is normal. Vertebral body alignment is normal. Vertebral body hei ghts appear preserved. Posterior spinal lamellar line is intact. Tip of the odontoid is obscured by o verlying occiput despite multiple views. IMPRESSION: 1. Status post anterior cervical fusion.
== END | disposition home or self-care (01) ==
LOC: RADXRMAIN 14:26
PROVIDERS: ATTEND Neurological Surgery
DX: M54.12 Radiculopathy, cervical region (principal); Z98.1 Arthrodesis status
CPT/HCPCS: 72050

== ENCOUNTER → 2017-08-13 | Outpatient (CLI) | payer MEDICARE, OTHER ==
[2017-08-13 13:34] VITALS: BP 115/87; RESP 16
--- NOTE | 2017-08-13 13:59 | P.PAINPG ---
Subjective Progress Note Date: 08/13/17 This is a very pleasant 57-year-old woman with a history of multiple spinal surgeries who was referred to our clinic by a neurosurgeon for right intercostal nerve blocks. She has intractable pain which begins in her spine and wraps around her abdominal wall. This is approximately the area below her breast between her breasts in her umbilicus. She says this pain is burning and she wears a brace to help reduce her pain although it is not really effective at controlling it. She denies bowel or bladder dysfunction. She did undergo cervical spine surgery in February of this year. She is also had lumbar surgery in the past. Objective - Vital Signs Vital signs: Vital Signs Temp Pulse Resp 16 08/13/17 13:23 BP 115/87 08/13/17 13:23 Pulse Ox 90 L 08/13/17 13:23 Intake & Output 08/12/17 08/13/17 08/13/17 18:59 06:59 18:59 Weight 70.307 kg - Exam General: The patient is alert and oriented. Patient is not sedateded Patient answers all question appropriately. Cardiac: Heart is regular in rate and rhythm Respiratory: Clear to auscultation. No audible wheezes. Thorax: Patient has significant tenderness to palpation over the thoracic extensor muscles on the right paraspinous region of the mid thoracic spine. There are no sensory deficits. There is no allodynia present. Abdomen: Soft nontender nondistended. Lower extremities: Strength is normal bilaterally. Sensation is normal bilaterally. Reflexes are preserved and symmetric bilaterally. Straight leg raise is negative bilaterally. No focal motor deficits are appreciated. Assessment and Plan (1) Thoracic radiculopathy Narrative/Plan: Plan of Care 1. Medications: Patient is currently being prescribed opioids by another physician. She will continue to receive medications from that individual. She may benefit from a trial of gabapentin in the future. I have reviewed the patient's MAPS report and it reveals expected results. Patient has signed an opiate agreement as well as opiate consent for treatment in our clinic. They understand the risks and benefits of opiate medications. They are aware of the potential for addiction. 2. Interventions: I believe the patient would benefit from a thoracic transforaminal epidural steroid injection. This would be at the T7 or T8 level. When we perform this procedure, we will only do one level so that it is helpful from both a diagnostic as well as a therapeutic point of view. I did personally call and speak with her neurosurgeon. He endorsed this plan of care. He was very particular in recommending that multiple levels should not be blocked at the same time as this would be less beneficial for him from a diagnostic point of view in creating a surgical plan of care. 3. Referrals: None 4. Testing: No tests were ordered. I did discuss the patient's lumbar myogram and thoracic images from her myelogram with her neurosurgeon. He reported having a difficulty determining exactly which nerve was pinched in her thoracic spine based on the images he reviewed. 5. Psychological: None Current Visit: Yes Status: Acute Code(s): M54.14 - RADICULOPATHY, THORACIC REGION SNOMED Code(s): 62757391 PQRS Measure Charge Sheet Measure #130: Documentation of Current Meds in Medical Chart: Patient's medications documented in chart Measure #226: Tobacco Use: Screen & Cessation Intervention: Pt not a tobacco user Measure #111: Pneumonia Vaccination: Pneumococcal vaccine NOT administered or previously given Measure #47: Advance Care Plan: Advance care planning discussed & documented, pt chose/unable to give Measure #412: Opioid Treatment Agreement: No documentation of signed opioid treatment agreement Measure #408: Opioid Therapy Follow-up Evaluation: Patient had NO f/u eval minimum every 3 months during opioid therapy Measure #317: Preventitive Care & Scrn High Bld Press & F/U: Normal blood pressure, f/u not required Measure #128: Body Mass Index (BMI) Screening & Follow-up: BMI documented within normal parameters Measure #131: Pain Assessment & Follow-up: Pain positive & plan documented Measure #431: Unhealthy Alcohol Use Preventative Care & Scrn: Patient not identified as an unhealthy alcohol user PQRS Narrative: Smoking Status Current every day smoker Do You Want the Pneumonia Vaccine Up to Date Vaccine AT THIS TIME? Blood Pressure 115/87 Pain Intensity [Upper Back] 10 Scale Used Numeric (1 - 10) Home Medications: Ambulatory Orders Albuterol Nebulized [Ventolin Nebulized] 2.5 mg INHALATION BID 07/07/13 Venlafaxine HCl [Effexor XR] 150 mg PO BID 01/12/15 Tiotropium [place] [Spiriva] 1 cap INHALATION RT-DAILY 03/09/15 Budesonide-Formot 160-4.5 Mcg [Symbicort 160-4.5 Mcg Inhaler] 2 puff INHALATION RT-BID 08/20/15 Clopidogrel [Plavix] 75 mg PO DAILY #30 tab 07/29/16 Pantoprazole [Protonix] 40 mg PO AC-BRKFST #30 tab 07/29/16 Multivitamins, Thera [Multivitamin (formulary)] 1 tab PO DAILY 08/23/16 Albuterol Sulfate [Proair Hfa] 1 - 2 puff INHALATION QID 09/24/16 Digoxin [Lanoxin] 250 mcg PO DAILY 09/24/16 Temazepam [Restoril] 15 mg PO HS PRN 09/24/16 Midodrine [ProAmatine] 2.5 tab PO BID 10/31/16 Aspirin [Adult Low Dose Aspirin EC] 81 mg PO DAILY 02/13/17 Cholecalciferol (Vitamin D3) [Vitamin D3] 10,000 unit PO DAILY 02/13/17 Gabapentin [Neurontin] 300 mg PO TID 02/13/17 oxyCODONE-APAP 10-325MG [Percocet 10-325 mg] 1 tab PO Q6HR 02/13/17 Methocarbamol [Robaxin] 1,000 mg PO TID 08/13/17 Controlled Substance Measures - Controlled Substance Measures Is patient prescribed a controlled substance at discharge?: No
== END | disposition home or self-care (01) ==
LOC: PNWHC3 12:19
PROVIDERS: ATTEND Pain Medicine Pain Medicine
DX: M54.14 Radiculopathy, thoracic region (principal); F17.200 Nicotine dependence, unspecified, uncomplicated; Z79.899 Other long term (current) drug therapy; Z79.02 Long term (current) use of antithrombotics/antiplatelets; Z79.82 Long term (current) use of aspirin
CPT/HCPCS: 99211

== ENCOUNTER 2017-08-20 13:47 | Emergency (ER) | payer MEDICARE, OTHER ==
[2017-08-20 13:52] VITALS: RESP 18
[2017-08-20] MEDS ORDERED: SODIUM CHLORIDE 0.9% 500 ML IV ONE (14:52)
[2017-08-20] MEDS ORDERED: KETOROLAC 30 MG/ML 1 ML VIAL IVP STA (14:52)
[2017-08-20] MEDS ORDERED: SODIUM CHLORIDE 0.9% 1,000 ML IV ONE (14:52)
--- NOTE | 2017-08-20 14:59 | ED ---
Abdominal Pain HPI - General Chief Complaint: Abdominal Pain Stated Complaint: LIVER PROBLEM, PAIN Time Seen by Provider: 08/20/17 14:41 Source: patient, RN notes reviewed Mode of arrival: ambulatory Limitations: no limitations - History of Present Illness Initial Comments: This a 57-year-old female presents emergency Department chief complaint of right upper quadrant abdominal pain and right flank pain since Friday. Patient states that she believes that there is something wrong with her liver. She has been diagnosed with fatty liver in the past and has had CT biopsy another further tests with no other findings. Patient reports no nausea vomiting diarrhea but states she is constipated. She has no dysuria no hematuria. Denies any fever, chills no history kidney stones. Patient states that she is status post cholecystectomy. - Related Data Home Medications Medication Instructions Recorded Confirmed Albuterol Nebulized [Ventolin 2.5 mg INHALATION BID 07/07/13 08/20/17 Nebulized] Venlafaxine HCl [Effexor XR] 150 mg PO BID 01/12/15 08/20/17 Tiotropium [place] [Spiriva] 1 cap INHALATION RT-DAILY 03/09/15 08/20/17 Budesonide-Formot 160-4.5 Mcg 2 puff INHALATION RT-BID 08/20/15 08/20/17 [Symbicort 160-4.5 Mcg Inhaler] Multivitamins, Thera [Multivitamin 1 tab PO DAILY 08/23/16 08/20/17 (formulary)] Albuterol Sulfate [Proair Hfa] 1 - 2 puff INHALATION QID 09/24/16 08/20/17 Digoxin [Lanoxin] 250 mcg PO DAILY 09/24/16 08/20/17 Temazepam [Restoril] 15 mg PO HS PRN 09/24/16 08/20/17 Midodrine [ProAmatine] 2.5 tab PO BID 10/31/16 08/20/17 Aspirin [Adult Low Dose Aspirin EC] 81 mg PO DAILY 02/13/17 08/20/17 Cholecalciferol (Vitamin D3) 10,000 unit PO DAILY 02/13/17 08/20/17 [Vitamin D3] Gabapentin [Neurontin] 300 mg PO TID 02/13/17 08/20/17 oxyCODONE-APAP 10-325MG [Percocet 1 tab PO Q6HR 02/13/17 08/20/17 10-325 mg] Methocarbamol [Robaxin] 1,000 mg PO TID 08/13/17 08/20/17 Calcium Carb/Vitamin D3/Vit K1 1 tab PO DAILY 08/20/17 08/20/17 [Citracal Soft Chew] Cetirizine HCl [Zyrtec] 5 mg PO DAILY 08/20/17 08/20/17 Vitamin A 8,000 unit PO DAILY 08/20/17 08/20/17 Previous Rx's Medication Instructions Recorded Clopidogrel [Plavix] 75 mg PO DAILY #30 tab 07/29/16 Pantoprazole [Protonix] 40 mg PO AC-BRKFST #30 tab 07/29/16 Ciprofloxacin HCl [Cipro] 500 mg PO Q12HR #20 tablet 08/20/17 Allergies Allergy/AdvReac Type Severity Reaction Status Date / Time Mushroom AdvReac Nausea & Verified 08/20/17 15:02 Vomiting Review of Systems ROS Statement: Those systems with pertinent positive or pertinent negative responses have been documented in the HPI. ROS Other: All systems not noted in ROS Statement are negative. Past Medical History Past Medical History: Heart Failure, COPD, CVA/TIA, GERD/Reflux, Hypertension, Liver Disease, Osteoarthritis (OA) Additional Past Medical History / Comment(s): Past SHIPMAN'S ESOPHAGUS- surgically removed, past hiatal hernia, chronic back and neck pain, stroke 2015, TIA 06/2016 with L arm weakness, chronic bronchitis, sinus problems, migraines in past, athritis bilateral knees and in neck, past tooth abscess, fibromyalgia. History of Any Multi-Drug Resistant Organisms: None Reported Past Surgical History: Appendectomy, Back Surgery, Bariatric Surgery, Section, Cholecystectomy, Hernia Repair, Joint Replacement, Tubal Ligation Additional Past Surgical History / Comment(s): BACK SX X3 including a fusion, has CLC implanted in back (tens unit), cervical fusion, 9- LAP GABRIEL EN Y, EGDs and EGD with dilation and removal of a staple that had migrated, colonoscopy/benign polypectomy, bilateral knee injections, 07/24/16: Open heart sx with valve replacement Past Anesthesia/Blood Transfusion Reactions: Motion Sickness, Postoperative Nausea & Vomiting (PONV) Additional Past Anesthesia/Blood Transfusion Reaction / Comment(s): Pt states she has never received blood, slow to wake up from anaesthesia Past Psychological History: Depression Smoking Status: Current every day smoker Past Alcohol Use History: None Reported Past Drug Use History: None Reported - Past Family History Sister(s) Family Medical History: Myocardial Infarction (GA) Additional Family Medical History / Comment(s): at age 43 if GA Mother Family Medical History: Myocardial Infarction (GA) Additional Family Medical History / Comment(s): Mother at age 62 of [place]. Father Family Medical History: Myocardial Infarction (GA) Additional Family Medical History / Comment(s): Father in his 40's of a GA. General Exam Limitations: no limitations General appearance: alert, in no apparent distress Head exam: Present: atraumatic, normocephalic, normal inspection Eye exam: Present: normal appearance, PERRL, EOMI. Absent: scleral icterus, conjunctival injection, periorbital swelling Respiratory exam: Present: normal lung sounds bilaterally. Absent: respiratory distress, wheezes, rales, rhonchi, stridor Cardiovascular Exam: Present: regular rate, normal rhythm, normal heart sounds. Absent: systolic murmur, diastolic murmur, rubs, gallop, clicks GI/Abdominal exam: Present: soft, tenderness (Moderate right upper quadrant tenderness), normal bowel sounds. Absent: distended, guarding, rebound, rigid Back exam: Present: CVA tenderness (R). Absent: CVA tenderness (L) Skin exam: Present: warm, dry, intact, normal color. Absent: rash Course Vital Signs 08/20/17 13:49 Temperature 98.1 F Pulse Rate 58 L Respiratory 18 Rate Blood Pressure 113/73 O2 Sat by Pulse 97 Oximetry Medical Decision Making - Medical Decision Making 57-year-old female presented for right flank pain. Patient's found to have pyelonephritis. Patient will be given Rocephin emergency department discharged with ciprofloxacin and advised to take her pain medication for pain control.. Patient follow-up with PCP return parameters were discussed. Patient is stable. - Lab Data Result diagrams: 08/20/17 15:00 08/20/17 15:00 Lab Results 08/20/17 08/20/17 08/20/17 Range/Units 15:00 15:00 15:47 WBC 9.4 (3.8-10.6) k/uL RBC 4.64 (3.80-5.40) m/uL Hgb 11.0 L (11.4-16.0) gm/dL Hct 33.7 L (34.0-46.0) % MCV 72.6 L (80.0-100.0) fL MCH 23.6 L (25.0-35.0) pg MCHC 32.5 (31.0-37.0) g/dL RDW 16.9 H (11.5-15.5) % Plt Count 215 (150-450) k/uL Neutrophils % 76 % Lymphocytes % 13 % Monocytes % 7 % Eosinophils % 0 % Basophils % 0 % Neutrophils # 7.2 (1.3-7.7) k/uL Lymphocytes # 1.2 (1.0-4.8) k/uL Monocytes # 0.7 (0-1.0) k/uL Eosinophils # 0.0 (0-0.7) k/uL Basophils # 0.0 (0-0.2) k/uL Anisocytosis Slight Microcytosis Moderate Sodium 136 L (137-145) mmol/L Potassium 4.7 (3.5-5.1) mmol/L Chloride 102 (98-107) mmol/L Carbon Dioxide 24 (22-30) mmol/L Anion Gap 10 mmol/L BUN 9 (7-17) mg/dL Creatinine 0.78 (0.52-1.04) mg/dL Est GFR (CKD-EPI)AfAm >90 (>60 ml/min/1.73 sqM) Est GFR (CKD-EPI)NonAf 86 (>60 ml/min/1.73 sqM) Glucose 96 (74-99) mg/dL Calcium 8.8 (8.4-10.2) mg/dL Total Bilirubin 0.5 (0.2-1.3) mg/dL AST 22 (14-36) U/L ALT 38 (9-52) U/L Alkaline Phosphatase 185 H (38-126) U/L Total Protein 6.4 (6.3-8.2) g/dL Albumin 3.7 (3.5-5.0) g/dL Amylase <30 L (30-110) U/L Lipase 38 (23-300) U/L Urine Color Light Yellow Urine Appearance Cloudy H (Clear) Urine pH 5.5 (5.0-8.0) Ur Specific [place] 1.011 (1.001-1.035) Urine Protein Negative (Negative) Urine Glucose (UA) Negative (Negative) Urine Ketones Negative (Negative) Urine Blood Negative (Negative) Urine Nitrite Negative (Negative) Urine Bilirubin Negative (Negative) Urine Urobilinogen <2.0 (<2.0) mg/dL Ur Leukocyte Esterase Large H (Negative) Urine RBC <1 (0-5) /hpf Urine WBC 51 H (0-5) /hpf Urine WBC Clumps Few H (None) /hpf Ur Squamous Epith Cells <1 (0-4) /hpf Urine Bacteria Rare H (None) /hpf Urine Mucus Rare H (None) /hpf Disposition Clinical Impression: Pyelonephritis Disposition: HOME SELF-CARE Condition: Stable Instructions: Kidney Infection (ED) Additional Instructions: Please return to the Emergency Department if symptoms worsen or any other concerns. Prescriptions: Ciprofloxacin HCl [Cipro] 500 mg PO Q12HR #20 tablet Is patient prescribed a controlled substance at d/c from ED?: No Referrals: Nale Hager MD [Primary Care Provider] - 1-2 days
[2017-08-20 15:11] LABS: Anisocytosis Slight; Basophils % (A) 0 %; Eosinophils % (A) 0 %; HCT 33.7 % (34.0-46.0); Lymphocytes # (A) 1.2 k/uL (1.0-4.8); Lymphocytes % (A) 13 %; MCH 23.6 pg (25.0-35.0); MCHC 32.5 g/dL (31.0-37.0); MCV 72.6 fL (80.0-100.0); Mean Platelet Volume 8.5; Microcytosis Moderate; Monocytes # (A) 0.7 k/uL (0-1.0); Monocytes % (A) 7 %; Neutrophils # (A) 7.2 k/uL (1.3-7.7); Neutrophils % (A) 76 %; Platelet Count 215 k/uL (150-450); RBC 4.64 m/uL (3.80-5.40); RDW 16.9 % (11.5-15.5); WBC 9.4 k/uL (3.8-10.6)
[2017-08-20 15:20] LABS: ALT 38 U/L (9-52); AST 22 U/L (14-36); Albumin 3.7 g/dL (3.5-5.0); Alkaline Phosphatase 185 U/L (38-126); Amylase <30 U/L (30-110); Anion Gap 10 mmol/L; Blood Urea Nitrogen 9 mg/dL (7-17); Calcium 8.8 mg/dL (8.4-10.2); Carbon Dioxide 24 mmol/L (22-30); Chloride 102 mmol/L (98-107); Glucose 96 mg/dL (74-99); Lipase 38 U/L (23-300); Potassium 4.7 mmol/L (3.5-5.1); Sodium 136 mmol/L (137-145); Total Bilirubin 0.5 mg/dL (0.2-1.3); Total Protein 6.4 g/dL (6.3-8.2)
--- NOTE | 2017-08-20 15:47 | CT ---
EXAMINATION TYPE: CT abdomen pelvis w con DATE OF EXAM: 08/20/2017 COMPARISON: 08/23/2016 HISTORY: Pain under right ribs x 5 days. Decreased bowel movements. CT DLP: 584.2 mGycm CONTRAST: CT scan of the abdomen and pelvis is performed without Oral Contrast and with IV Contrast, patient in jected with 100 mL of Isovue M300. FINDINGS: LUNG BASES-: No visible nodule. No infiltrate. LIVER/GB: Cholecystectomy changes. Continued hepatomegaly. No space occupying hepatic lesion. Bili jana tree is of normal caliber. PANCREAS: No inflammation. No distinct mass. SPLEEN: Splenomegaly measuring 18.2 cm craniocaudal dimension. No lesion seen. ADRENALS: No nodule. No thickening. KIDNEYS/BLADDER: Patchy renal uptake right greater than left suspicious for pyelonephritis. Correlat e clinically. No hydronephrosis. No nephrolithiasis. No distinct renal mass. Urinary bladder gross ly unremarkable. BOWEL: Postoperative changes of the stomach. Normal appendix. Normal bowel caliber. No inflammation . GENITAL ORGANS: No gross abnormality. LYMPH NODES: No greater than 1cm abdominal or pelvic lymph nodes are appreciated. AORTA: No significant abnormality. OSSEOUS STRUCTURES: Postoperative changes lumbar spine. OTHER: Small amount of ascites measuring 4.6 cm AP dimension.. IMPRESSION: 1. Findings as noted above suspicious for pyelonephritis.
[2017-08-20 16:08] LABS: Appearance,Urine Cloudy (Clear); Bacteria,Urine Rare /hpf; Bilirubin,Urine Negative (Negative); Blood,Urine Negative (Negative); Color,Urine Light Yellow; Glucose,Urine (UA) Negative (Negative); Ketones,Urine Negative (Negative); Leukocyte Esterase,Urine Large (Negative); Mucus,Urine Rare /hpf; Nitrite,Urine Negative (Negative); PH, Urine 5.5 (5.0-8.0); Protein,Urine Negative (Negative); RBC,Urine <1 /hpf (0-5); Specific Gravity,Urine 1.011 (1.001-1.035); Squamous Epithelial Cell,Urine <1 /hpf (0-4); Urobilinogen,Urine <2.0 mg/dL (<2.0); WBC,Urine 51 /hpf (0-5)
[2017-08-20] MEDS ORDERED: cefTRIAXone IN SWFI 2,000 MG/20 ML SYRINGE IVP STA (16:11)
[2017-08-20 16:47] VITALS: BP 126/73; PULSE 53; TEMP 98.2
== END 2017-08-20 16:48 | disposition home or self-care (01) ==
LOC: EC 13:47
DX: N12 Tubulo-interstitial nephritis, not specified as acute or chronic (principal); K59.00 Constipation, unspecified; I11.0 Hypertensive heart disease with heart failure; I50.9 Heart failure, unspecified; J44.9 Chronic obstructive pulmonary disease, unspecified; M79.7 Fibromyalgia; M19.90 Unspecified osteoarthritis, unspecified site; F32.9 Major depressive disorder, single episode, unspecified; F17.200 Nicotine dependence, unspecified, uncomplicated; Z87.19 Personal history of other diseases of the digestive system; Z90.49 Acquired absence of other specified parts of digestive tract; Z86.73 Personal history of transient ischemic attack (TIA), and cerebral infarction without residual deficits; Z79.51 Long term (current) use of inhaled steroids; Z79.82 Long term (current) use of aspirin; Z79.891 Long term (current) use of opiate analgesic; Z79.899 Other long term (current) drug therapy; Z91.018 Allergy to other foods
CPT/HCPCS: 36415; 80053; 82150; 83690; 85025; 81001; 74177; 99284; 96374; 96375; 96361 ×2; J0696; J1885; Q9967

== ENCOUNTER 2017-09-29 08:14 | Day surgery (SDC) | payer MEDICARE, OTHER ==
[2017-09-22 16:31] VITALS: BMI 24.2
[~2017-09-29 08:14] MED LIST changes: -ALBUMIN HUMAN 25% 50 ML IV ONE; -ALBUMIN HUMAN 5% 500 ML IVPB ONE; -AMINOCAPROIC ACID 250 MG/ML 20 ML VIAL IV ONE; -AMINOCAPROIC ACID 5,000 MG in DEXTROSE 5% IN WATER 50 ML IV ONE; -ASPIRIN 325 MG TAB PO ONE; -ATORVASTATIN 10 MG TAB PO ONE; -CALCIUM CHLORIDE 100 MG/ML 10 ML SYRINGE IV ONE; -CHLORHEXIDINE GLUCONATE 15 ML CUP MUCOUS MEM ONE; -CLEVIDIPINE BUTYRATE 25 MG in EMPTY BAG 1 BAG IV ONE; -DEXTROSE 5% IN WATER 1,000 ML with POTASSIUM CHLORIDE 110 MEQ, MAGNESIUM SULFATE 16 MEQ... IV ONE; -DEXTROSE 5% IN WATER 1,000 ML with POTASSIUM CHLORIDE 25 MEQ, SODIUM CHLORIDE 4MEQ/ML V... IV ONE; -HEPARIN SODIUM 1,000 UNIT/ML VIAL IV ONE; -HEPARIN SODIUM,PORCINE 5,000 UNIT in SODIUM CHLORIDE 0.9% 500 ML IV ONE; -INSULIN REGULAR 100 UNIT in SODIUM CHLORIDE 0.9% 100 ML IV ONE; -LACTATED RINGERS 1,000 ML IV ONE; +LACTATED RINGERS 1,000 ML IV SCH; -MAGNESIUM SULFATE MG 500 MG/ML VIAL IV ONE; -MANNITOL 25% 12.5 GM/50 ML VIAL IV ONE; -METOPROLOL TARTRATE 12.5 MG TAB PO ONE; -MUPIROCIN 2% OINT 22 GM TUBE NASAL ONE; -NITROGLYCERIN SL TABS 0.4 MG TAB SUBLINGUAL ONE; -NITROGLYCERIN-D5W PMX 25 MG/250 ML BTL IV ONE; -NITROGLYCERIN-D5W PMX 50 MG in DEXTROSE/WATER 1 250ML.BAG IV ONE; -NOREPINEPHRIN 4 MG-0.9% NS PMX 4 MG/250 ML ML IV ONE; -PHENYLEPHRINE 40 MG in SODIUM CHLORIDE 0.9% 250 ML IV ONE; -PHENYLEPHRINE-0.9% NACL SYG 1 MG/10 ML SYRINGE IV ONE; -PROPOFOL 50 ML IV ONE; -PROTAMINE SULFATE 10 MG/ML 25 ML VIAL IV ONE; -PROTAMINE SULFATE 250 MG in EMPTY BAG 1 BAG IV ONE; -SODIUM BICARB 8.4% 50 ML SYR (1 MEQ/ML) IV ONE; -SODIUM CHLORIDE 0.9% 1,000 ML IV ONE; -ceFAZolin 1,000 MG in SODIUM CHLORIDE 0.9% IRRIGATIO 1,000 ML IRRIGATION ONE; -ceFAZolin 2,000 MG in SODIUM CHLORIDE 0.9% 30 ML IVPB ONE
[2017-09-29 09:13] VITALS: RESP 16; TEMP 97.6
--- NOTE | 2017-09-29 09:55 | P.PCN ---
Date of Procedure: 09/29/17 Procedure(s) Performed: PREOPERATIVE DIAGNOSIS: Thoracic radiculopathy in right T7-8 ,T8-9 distribution POSTOPERATIVE DIAGNOSIS: Same as preop Diagnosis . PROCEDURE 1. Transforaminal epidural steroid injection under fluoroscopic guidance at right T8-9 level. 2. Thoracic epidurogram. ANESTHESIA: Local with 1% lidocaine 3 ml , moderate sedation with intravenous Versed 2 mg and fentanyle 100 micrograms EBL: Minimal PROCEDURE INDICATION: The patient with mid back pain and radiculopathy symptoms unresponsive to conservative treatment. PROCEDURE DESCRIPTION / TECHNIQUE: The patient was seen and identified in the preoperative area. Risks, benefits , complications, and alternatives were discussed with the patient. The patient agreed to proceed with the procedure and signed the consent. IV was started, and vital signs were stable. Patient was taken to the OR and time out was completed. The patient was placed in the prone position on procedure table. The Thoracic area was prepped and draped in the usual sterile fashion. Critical pause was taken. Vital signs were closely monitored during the procedure. Conscious sedation was used during the procedure to decrease patients anxiety. Using oblique fluoroscopy, the chin of the `KyraHarmeet dog at right T8-9 level was identified, and the skin and deeper tissues just below was localized with 1 % lidocaine. Subsequently, a 25-gauge 3.5-inch spinal needle was advanced under a tunneled view fluoroscopic guidance just underneath the chin of the `Margrety dog at the right T8-9 . Under lateral fluoroscopy, the needle was then advanced to the posterior border of the right T8-9 interforaminal space. After negative aspiration of CSF and blood and with no paresthesias, 1 mL Isovue 200 contrast dye was injected excellent epidurogram and outlining of the nerve root Subsequently, 3 mL of block solution containing 20 mg Dexamethason and 2 mL of Lidocaine 1% was injected. Needle was removed . At the end of the procedure, skin was cleansed, and bandages were applied. COMPLICATIONS:none DISPOSITION / PLANS: The patient was placed in a supine position and transferred to the recovery area in a stable condition for observation. There was no evidence of lower extremity motor or sensory deficit after the procedure. Patient was discharged from the recovery room after meeting discharge criteria. Home discharge instructions were given to the patient by the staff. The patient was reexamined prior to discharge.
[2017-09-29] MEDS ORDERED: IV FLUID CONTINUATION 1,000 ML IV ONE ×2 (10:02)
--- NOTE | 2017-09-29 10:13 | XR ---
EXAMINATION TYPE: XR chest 1V portable DATE OF EXAM: 09/29/2017 COMPARISON: Prior chest x-ray dated 06/12/2017 HISTORY: Status post thoracic transforaminal YOLY TECHNIQUE: Single frontal view of the chest is obtained. FINDINGS: There is no focal air space opacity, pleural effusion, or pneumothorax seen. The cardiac silhouette size is within normal limits. Postop changes are stable. The osseous structures are intac t. IMPRESSION: No acute process. No evident complication status post thoracic intervention.
[2017-09-29 10:16] VITALS: BP 121/84; PULSE 77
--- NOTE | 2017-09-29 10:55 | FL ---
Fluoroscopy HISTORY: Pain 28 seconds fluoroscopy time supplied to the referring clinician. 2 intraoperative C-arm images docum ent the procedure. See dictated report from anesthesia.
== END 2017-09-29 10:36 | disposition home or self-care (01) ==
LOC: ORPAIN 08:14
PROVIDERS: ATTEND Specialist
DX: M54.14 Radiculopathy, thoracic region (principal); I25.10 Atherosclerotic heart disease of native coronary artery without angina pectoris; Z98.1 Arthrodesis status; Z95.2 Presence of prosthetic heart valve; Z79.02 Long term (current) use of antithrombotics/antiplatelets; Z91.018 Allergy to other foods
CPT/HCPCS: 71045; 64479; J2250; J1100; J3010; Q9966; 64483; 99152

== ENCOUNTER → 2017-10-24 | Outpatient (CLI) | payer MEDICARE, OTHER ==
[2017-10-24 12:47] LABS: Anisocytosis Slight; HCT 34.7 % (34.0-46.0); HGB 10.7 gm/dL (11.4-16.0); Hypochromasia Moderate; MCH 24.1 pg (25.0-35.0); MCHC 30.9 g/dL (31.0-37.0); Mean Platelet Volume 8.1; Microcytosis Slight; Platelet Count 263 k/uL (150-450); RBC 4.45 m/uL (3.80-5.40); RDW 17.4 % (11.5-15.5); WBC 5.7 k/uL (3.8-10.6)
[2017-10-24 12:52] LABS: Partial Thromboplastin Time 23.3 sec (22.0-30.0); Prothrombin Time 10.1 sec (9.0-12.0)
[2017-10-24 13:04] LABS: Albumin 3.8 g/dL (3.5-5.0); Bilirubin, Delta 0.3 mg/dL (0.0-0.2); Calcium 9.1 mg/dL (8.4-10.2); Magnesium 1.9 mg/dL (1.6-2.3); Phosphorus 3.4 mg/dL (2.5-4.5); Potassium 4.9 mmol/L (3.5-5.1); Total Bilirubin 0.3 mg/dL (0.2-1.3); Total Protein 6.8 g/dL (6.3-8.2)
[2017-10-24 17:03] LABS: Folate, Serum 9.1 ng/mL; Vitamin D 25 Hydroxy 36.2 ng/mL (30.0-100.0)
[2017-10-24 17:24] LABS: Alpha Fetoprotein, Tumor Mkr <2.5 ng/mL (0.0-7.9); Iron Saturation 4.93 (12.00-45.00)
[2017-10-24 17:44] LABS: Parathyroid Hormone Intact 115.5 pg/mL (14.0-72.0)
[2017-10-24 19:43] LABS: Hemoglobin A1C 5.6 % (4.0-6.0)
== END | disposition home or self-care (01) ==
LOC: LABWHC1 12:16
PROVIDERS: ATTEND Surgery Plastic and Reconstructive Surgery
DX: E66.01 Morbid (severe) obesity due to excess calories (principal); E21.1 Secondary hyperparathyroidism, not elsewhere classified; E89.1 Postprocedural hypoinsulinemia; D50.9 Iron deficiency anemia, unspecified; K90.9 Intestinal malabsorption, unspecified; E55.9 Vitamin D deficiency, unspecified; K74.1 Hepatic sclerosis; N19 Unspecified kidney failure; K50.90 Crohn's disease, unspecified, without complications; R74.8 Abnormal levels of other serum enzymes
CPT/HCPCS: 36415; 80053; 80061; 82105; 82248; 82306; 82525; 82607; 82728; 82746; 83036; 83540; 83550; 83735; 83970; 84100; 84134; 84255; 84425; 84443; 84590; 84630; 85027; 85610; 85730

== ENCOUNTER → 2017-10-29 | Outpatient (CLI) | payer MEDICARE, OTHER ==
--- NOTE | 2017-10-29 16:29 | XR ---
EXAMINATION TYPE: XR cervical spine comp DATE OF EXAM: 10/29/2017 COMPARISON: 07/15/2017 HISTORY: 57-year-old female cervical radiculopathy, surgery in March 2017, follow-up exam. TECHNIQUE: 5 views FINDINGS: No predental space widening or prevertebral soft tissue swelling. There is ACDF from C5 through T1 le vels. Alignment is maintained. Facet arthropathy lower cervical spine. On the left, there is variable mild bony spondylotic near foraminal narrowing. On the right, there is at least moderate bony spondylotic neuroforaminal narrowing at C5-C6 and C6 an d C7. C7-T1 not well assessed. Normal odontoid view. IMPRESSION: Stable exam status post C5-T1 ACDF. Suggestion of neuroforaminal narrowing on the right in the lower cervical spine.
== END | disposition home or self-care (01) ==
LOC: RADXRMAIN 09:19
PROVIDERS: ATTEND Neurological Surgery
DX: M54.12 Radiculopathy, cervical region (principal); Z98.890 Other specified postprocedural states
CPT/HCPCS: 72050

== ENCOUNTER → 2017-11-05 | Outpatient (CLI) | payer MEDICARE, OTHER ==
[2017-11-05 16:18] VITALS: BP 129/74; PULSE 72; TEMP 98.2; BMI 24.2
--- NOTE | 2017-11-05 16:52 | P.PN ---
Subjective Progress Note Date: 11/05/17 HPI: She reports her original goal was 160 pounds. Now she comes in 150 pounds. She was at 142 pounds. She was placed on high protein diet now with weight gain. She reports pre-existing back pain and is seeing a pain specialist for fibromyalgia. No abdominal pain. She reports GERD at night. No reports of dysphagia. She reports needing the rest of her teeth pulled. She is pending dentures. No diarrhea. ABDOMEN: No hernia. PLAN: 1. Recommend labs 2. She will continue to see her pain specialist. 3. Low thiamine, iron, copper, and calcium all to correct with Alive MVI and infusions Objective - Vital Signs Vital signs: Vital Signs Temp 98.2 F 11/05/17 16:14 Pulse 72 11/05/17 16:14 Resp BP 129/74 11/05/17 16:14 Pulse Ox Intake & Output 11/04/17 11/05/17 11/05/17 18:59 06:59 18:59 Weight 68.039 kg
== END | disposition home or self-care (01) ==
LOC: BARWHC3 15:19
PROVIDERS: ATTEND Surgery Plastic and Reconstructive Surgery
DX: K21.9 Gastro-esophageal reflux disease without esophagitis (principal); R63.5 Abnormal weight gain; M54.9 Dorsalgia, unspecified; M79.7 Fibromyalgia
CPT/HCPCS: 99211

== ENCOUNTER → 2017-11-10 | Day surgery (SDC) | payer MEDICARE, OTHER ==
[2017-11-06 10:35] VITALS: BMI 24.2
[~2017-11-10] MED LIST changes: +LACTATED RINGERS 1,000 ML IV ONE
[2017-11-10 07:41] VITALS: RESP 16; TEMP 97.8
--- NOTE | 2017-11-10 08:33 | P.PCN ---
Date of Procedure: 11/10/17 Surgeon: Marsha Ridley Pathology: none sent Condition: stable Disposition: PACU Description of Procedure: Procedure(s) Performed: PREOPERATIVE DIAGNOSIS: Thoracic radiculopathy in right T8-9 distribution POSTOPERATIVE DIAGNOSIS: Same as preop Diagnosis . PROCEDURE 1. Transforaminal epidural steroid injection under fluoroscopic guidance at right T8-9 level. 2. Thoracic epidurogram. ANESTHESIA: Local with 1% lidocaine 2 ml , moderate sedation with intravenous Versed 2 mg and fentanyle 100 micrograms EBL: Minimal PROCEDURE INDICATION: The patient with mid back pain and radiculopathy symptoms unresponsive to conservative treatment. PROCEDURE DESCRIPTION / TECHNIQUE: The patient was seen and identified in the preoperative area. Risks, benefits , complications, and alternatives were discussed with the patient. The patient agreed to proceed with the procedure and signed the consent. IV was started, and vital signs were stable. The patient had open-heart surgery previously and the view was obstructed partially by sternal wires. Patient was taken to the OR and time out was completed. The patient was placed in the prone position on procedure table. The Thoracic area was prepped and draped in the usual sterile fashion. Critical pause was taken. Vital signs were closely monitored during the procedure. Conscious sedation was used during the procedure to decrease patients anxiety. Using oblique fluoroscopy, the chin of the ``Harmeet dog at right T8-9 level was identified, and the skin and deeper tissues just below was localized with 1 % lidocaine. Subsequently, a 25-gauge 3.5-inch spinal needle was advanced under a tunneled view fluoroscopic guidance just underneath the chin of the ``Harmeet dog at the right T8-9 . Under lateral fluoroscopy, the needle was then advanced to the posterior border of the right T8-9 interforaminal space. After negative aspiration of CSF and blood and with no paresthesias, 1 mL Isovue 200 contrast dye was injected excellent epidurogram and outlining of the nerve root Subsequently, 2 mL of block solution containing 10 mg Dexamethason and 1 mL of ropivacaine 0.5% was injected. Needle was removed . At the end of the procedure, skin was cleansed, and bandages were applied. COMPLICATIONS:none DISPOSITION / PLANS: The patient was placed in a supine position and transferred to the recovery area in a stable condition for observation. We will do a chest x-ray to rule out pneumothorax in PACU. There was no evidence of lower extremity motor or sensory deficit after the procedure. Patient was discharged from the recovery room after meeting discharge criteria. Home discharge instructions were given to the patient by the staff. The patient was reexamined prior to discharge.
[2017-11-10 09:00] VITALS: BP 134/86; PULSE 78
--- NOTE | 2017-11-10 09:13 | XR ---
EXAMINATION TYPE: XR chest 1V DATE OF EXAM: 11/10/2017 COMPARISON: 09/29/2017 HISTORY: 57-year-old female postthoracentesis TECHNIQUE: Single frontal view of the chest is obtained. FINDINGS: ACDF hardware. Median sternotomy wires with post-CABG changes. Spinal stimulator array centered along the mid thoracic spinal canal. Heart normal size. Mild elongation thoracic aorta. Mild interstitial prominence is unchanged. No consolidation or pleural effusion. IMPRESSION: Chronic changes without acute cardiopulmonary process.
--- NOTE | 2017-11-10 09:38 | FL ---
EXAMINATION TYPE: FL guided pain mgmt statistic DATE OF EXAM: 11/10/2017 FLUOROSCOPY Fluoroscopy time of 20 seconds was used during right thoracic transfacet injection. 1 image/s docume nt/s the procedure.
== END | disposition home or self-care (01) ==
LOC: ORPAIN 06:46
PROVIDERS: ATTEND Anesthesiology
DX: M54.14 Radiculopathy, thoracic region (principal); I10 Essential (primary) hypertension; I25.10 Atherosclerotic heart disease of native coronary artery without angina pectoris; Z95.1 Presence of aortocoronary bypass graft; Z79.02 Long term (current) use of antithrombotics/antiplatelets
CPT/HCPCS: 71045; 64479; J2250; J1100; J3010; Q9966; 99152

== ENCOUNTER → 2017-12-10 | Outpatient (CLI) | payer MEDICARE ==
[2017-12-10 14:24] VITALS: BP 129/71; PULSE 88; RESP 18
--- NOTE | 2017-12-11 08:15 | P.PAINPG ---
Subjective Progress Note Date: 12/10/17 This is a follow-up visit for this 57-year-old female with a chronic history of severe mid back pain, diagnosed with thoracic radiculopathy, we have done transforaminal epidural steroid injection at T8 9 levels , after the first injection patient gets excellent pain relief for 5-1/2 weeks, and the second injection she got, no benefit from it, she continued to have severe mid back pain with radiation to the right side only, she denies any motor or sensory deficit she denies any fever or night sweats, and there is no change in the bowel movements or urination, she continued to use baclofen 10 mg 3 times a day , and Percocet 10/325 every 6 hours she is getting prescription refills from her primary care she denies any side effect of the medication Objective - Vital Signs Vital signs: Vital Signs Temp Pulse 88 12/10/17 14:17 Resp 18 12/10/17 14:17 BP 129/71 12/10/17 14:17 Pulse Ox 96 12/10/17 14:17 Intake & Output 12/10/17 12/11/17 12/11/17 18:59 06:59 18:59 Weight 63.503 kg - Exam Physical Examinations : 1-Constitutiona : Cooperative , not in acute distress . 2-HEENT : nech ; supple , no Lymphadenopathy , normal thyroid size . eyes : no ptosis , no icterus, no photophobia . ENT : normal of hearing , normal oropharynx , no Thrush . 3- Respiratory : Chest clear to auscultations Bilaterally , no wheezing , no Rhonchi . 4- Cardiovascular : regular rate and rhythem , S1 , S2 , no S3 , no S4. 5- Gastrointestinal : abdomen soft no tenderness , bowel sounds , no organomegally . 6- Genitourinary : Defferred . 7- neurologic : Cranial nerve II to XII intact , no focal neurological deffecit . 8-psychatric : alert , oriented X 3 , appropriate affect , intact judgment and insight . 9-Lymphatic : no Lymphadenopathy . 10- musculoskeltal : Cervical Spine motor stregnth in the deltoid and biceps, normal right side , normal Left side motor stregnth biceps and the wrist extensors normal right side ,normal left side . motor stregnth in the triceps muscle . normal Right side , normal Left side deep tendon reflexes normal at the biceps , normal at Brachioradialis , normal at triceps. Thoracic spine = flexion and extension of the torso associated with severe pain mainly on the right side trigger points in the right thoracic paravertebral musceles Lumber spine moter stegnth lower extremities , thigh and legs 5/5 Right side , 5/5 Left side Assessment and Plan Plan: Assessment and plan= Thoracic radiculopathy , myofascial pain syndrome thoracic area She could benefit from repeat transforaminal epidural steroid injection , right side T8 9 , she could benefit from trigger point injection right side thoracic paravertebral muscles She has still hold the Plavix for 1 week before the injection Time with Patient: Less than 30 PQRS Measure Charge Sheet Measure #130: Documentation of Current Meds in Medical Chart: Patient's medications documented in chart Measure #226: Tobacco Use: Screen & Cessation Intervention: Pt screened for tobacco use AND intervention given Measure #111: Pneumonia Vaccination: Pneumococcal vaccine NOT administered or previously given Measure #47: Advance Care Plan: Advance care planning discussed & documented, pt chose/unable to give Measure #412: Opioid Treatment Agreement: No documentation of signed opioid treatment agreement Measure #408: Opioid Therapy Follow-up Evaluation: Patient had NO f/u eval minimum every 3 months during opioid therapy Measure #317: Preventitive Care & Scrn High Bld Press & F/U: Normal blood pressure, f/u not required Measure #128: Body Mass Index (BMI) Screening & Follow-up: BMI documented within normal parameters Measure #131: Pain Assessment & Follow-up: Pain positive & plan documented, Follow-up scheduled Measure #431: Unhealthy Alcohol Use Preventative Care & Scrn: Patient not identified as an unhealthy alcohol user PQRS Narrative: Smoking Status Current every day smoker Do You Want the Pneumonia No Vaccine AT THIS TIME? Blood Pressure 129/71 Pain Intensity [Bilateral Back 6 ] Scale Used Numeric (1 - 10) Home Medications: Ambulatory Orders Albuterol Nebulized [Ventolin Nebulized] 2.5 mg INHALATION TID 07/07/13 Venlafaxine HCl [Effexor XR] 150 mg PO BID 01/12/15 Clopidogrel [Plavix] 75 mg PO DAILY #30 tab 07/29/16 Multivitamins, Thera [Multivitamin (formulary)] 1 tab PO DAILY 08/23/16 Digoxin [Lanoxin] 250 mcg PO DAILY 09/24/16 Temazepam [Restoril] 15 mg PO HS PRN 09/24/16 Midodrine [ProAmatine] 2.5 tab PO BID 10/31/16 Cholecalciferol (Vitamin D3) [Vitamin D3] 10,000 unit PO DAILY 02/13/17 oxyCODONE-APAP 10-325MG [Percocet 10-325 mg] 1 tab PO QID 02/13/17 Calcium Carb/Vitamin D3/Vit K1 [Citracal Soft Chew] 1 tab PO DAILY 08/20/17 Pantoprazole [Protonix] 40 mg PO BID 09/03/17 Albuterol Sulfate [Proair Hfa] 1 - 2 puff INHALATION Q6HR PRN 11/17/17 Budesonide/Formoterol Fumarate [Symbicort 160-4.5 Mcg Inhaler] 2 puff INHALATION BID 11/17/17 Citrigal 315 mg PO BID 11/17/17 Loratadine-Pseudoeph 10-240 mg [Claritin-D 24 Hr] 1 each PO DAILY 11/17/17 Tiotropium [place] [Spiriva] 1 cap INHALATION DAILY 11/17/17 Alive Ultra Potency 120 mg PO DAILY 12/10/17 Baclofen [Lioresal] 1 tab PO TID 12/10/17 Controlled Substance Measures - Controlled Substance Measures Is patient prescribed a controlled substance at discharge?: No When asked, does pt state using other controlled substances?: No If prescribed controlled substance>3 days was MAPS reviewed?: No If Rx opioid, was Start Talking consent form obtained?: No If opioid is for acute pain is fill amount 7 days or less?: No Was information provided regarding opioid addiction?: No
== END | disposition home or self-care (01) ==
LOC: PNWHC3 13:51
PROVIDERS: ATTEND Specialist
DX: G89.29 Other chronic pain (principal); M54.9 Dorsalgia, unspecified; M54.14 Radiculopathy, thoracic region; M79.18 Myalgia, other site; Z79.891 Long term (current) use of opiate analgesic; Z79.899 Other long term (current) drug therapy; F17.200 Nicotine dependence, unspecified, uncomplicated; Z71.6 Tobacco abuse counseling
CPT/HCPCS: 99211

== ENCOUNTER → 2018-02-09 | Outpatient (CLI) | payer MEDICARE ==
[2018-02-09 13:36] VITALS: BP 117/67; PULSE 60; RESP 18
--- NOTE | 2018-02-09 14:27 | P.PN ---
Subjective Progress Note Date: 02/09/18 This is a follow-up visit for this 57-year-old female with a chronic history of severe mid back pain, diagnosed with thoracic radiculopathy, we have done transforaminal epidural steroid injection at T8 9 levels x3 ,she continued to have severe mid back pain with radiation to the right side only, and she is complaining of severe right shoulder blade pain ,she denies any motor or sensory deficit she denies any fever or night sweats, and there is no change in the bowel movements or urination, she continued to use baclofen 10 mg 3 times a day, and Percocet 10/325 every 6 hours she is getting prescription refills from her primary care she denies any side effect of the medication Physical Examinations : 1-Constitutiona : Cooperative , not in acute distress . 2-HEENT : nech ; supple , no Lymphadenopathy , normal thyroid size . eyes : no ptosis , no icterus, no photophobia . ENT : normal of hearing , normal oropharynx , no Thrush . 3- Respiratory : Chest clear to auscultations Bilaterally , no wheezing , no Rhonchi . 4- Cardiovascular : regular rate and rhythem , S1 , S2 , no S3 , no S4. 5- Gastrointestinal : abdomen soft no tenderness , bowel sounds , no organomegally . 6- Genitourinary : Defferred . 7- neurologic : Cranial nerve II to XII intact , no focal neurological deffecit . 8-psychatric : alert , oriented X 3 , appropriate affect , intact judgment and insight . 9-Lymphatic : no Lymphadenopathy . 10- musculoskeltal : Severe tenderness over the right shoulder blade area Cervical Spine motor stregnth in the deltoid and biceps, normal right side , normal Left side motor stregnth biceps and the wrist extensors normal right side ,normal left side . motor stregnth in the triceps muscle . normal Right side , normal Left side deep tendon reflexes normal at the biceps , normal at Brachioradialis , normal at triceps. Thoracic spine = flexion and extension of the torso associated with severe pain mainly on the right side trigger points in the right thoracic paravertebral musceles Lumber spine moter stegnth lower extremities , thigh and legs 5/5 Right side , 5/5 Left side Assessment and plan= Thoracic radiculopathy , intercostal neuralgia ,myofascial pain syndrome thoracic area ,patient had no movement benefit from transforaminal epidural steroid injections. T8-9 levels Patient could benefit from right-sided T7 /T8 /T9 intercostal nerve block under fluoroscopy guidance. Right shoulder blade pain , he shouldn't really been a candidate for suprascapular nerve block under fluoroscopy guidance PQRS Measure Charge Sheet Measure #130: Documentation of Current Meds in Medical Chart: Patient's medications documented in chart Measure #226: Tobacco Use: Screen & Cessation Intervention: Pt screened for tobacco use AND intervention given Measure #111: Pneumonia Vaccination: Pneumococcal vaccine NOT administered or previously given Measure #47: Advance Care Plan: Advance care planning discussed & documented, pt chose/unable to give Measure #412: Opioid Treatment Agreement: No documentation of signed opioid treatment agreement Measure #408: Opioid Therapy Follow-up Evaluation: Patient had NO f/u eval minimum every 3 months during opioid therapy Measure #317: Preventitive Care & Scrn High Bld Press & F/U: Normal blood pressure, f/u not required Measure #128: Body Mass Index (BMI) Screening & Follow-up: BMI documented within normal parameters Measure #131: Pain Assessment & Follow-up: Pain positive & plan documented, Follow-up scheduled Measure #431: Unhealthy Alcohol Use Preventative Care & Scrn: Patient not identified as an unhealthy alcohol user PQRS Narrative: - Controlled Substance Measures Is patient prescribed a controlled substance at discharge?: No When asked, does pt state using other controlled substances?: No If prescribed controlled substance>3 days was MAPS reviewed?: No If Rx opioid, was Start Talking consent form obtained?: No If opioid is for acute pain is fill amount 7 days or less?: No Was information provided regarding opioid addiction?: No Objective - Vital Signs Vital signs: Vital Signs Temp Pulse 60 02/09/18 13:27 Resp 18 02/09/18 13:27 BP 117/67 02/09/18 13:27 Pulse Ox 99 02/09/18 13:27 Intake & Output 02/08/18 02/09/18 02/09/18 18:59 06:59 18:59 Weight 59.421 kg
== END | disposition home or self-care (01) ==
LOC: PNWHC3 12:43
PROVIDERS: ATTEND Specialist
DX: M54.14 Radiculopathy, thoracic region (principal); M79.18 Myalgia, other site; M25.512 Pain in left shoulder; Z79.891 Long term (current) use of opiate analgesic
CPT/HCPCS: 99211

== ENCOUNTER → 2018-02-25 | Outpatient (CLI) | payer MEDICARE ==
--- NOTE | 2018-02-25 15:57 | P.PN ---
Subjective Progress Note Date: 02/25/18 DATE OF SERVICE: 02/25/2018 CHIEF COMPLAINT: Follow-up gastric bypass. HISTORY OF PRESENT ILLNESS: Kassy Lopez is a 55-year-old female status post gastric bypass on 11/06/2015. She is now 2 years out. She is losing more weight. She reports epigastric and left upper quadrant abdominal pain. Her ideal body weight for a 5' 6" frame is 154 pound. Her highest weight was 278 pounds. Today she comes in weighing 133 pounds from 150 pounds, 4 months ago. She has lost 17 pounds in 4 months. She has lost 145 pounds. Body mass index is reduced from 45.0 down to 21.5. Her percent excess weight loss is 117 %. PAST MEDICAL HISTORY: 1. Hernandez esophagus. 2. Gastroesophageal reflux disease, now resolved. 3. Osteoarthritis, now resolved. 4. Diabetes type 2 with gastroparesis, now resolved. 5. Depression. 6. Hypertension, now resolved. 7. Chronic obstructive pulmonary disease, now improved. 8. History of congestive heart failure. 9. Morbid obesity, BMI 45.0, initial PAST SURGICAL HISTORY: 1. Back surgery x3 including fusion. 2. TENS unit infusion. 3. Neck fusion. 4. Right knee injections. 5. Colonoscopy. 6. Upper endoscopy. 7. Appendectomy. 8. section. 9. Cholecystectomy. 10. Tubal ligation. 11. Status post gastric bypass. 12. Cardiac catheterization. 13. Valvular replacement, 07/24/2016 MEDICATIONS: 1. Percocet. 2. Effexor. 3. Spiriva. 4. Omeprazole. 5. Lopressor 6. Symbicort. 7. Baclofen. 8. Albuterol inhaler. 9. Albuterol nebulizer. 10. Plavix. 11. Lipitor. ALLERGIES: MUSHROOM. FAMILY HISTORY: Denies any Crohn's disease or ulcerative colitis. Denies any lupus within her family. SOCIAL HISTORY: Active tobacco user over 25 years, 1 pack per day and now in remission. REVIEW OF SYSTEMS: CONSTITUTIONAL: Her ideal body weight for a 5' 6" frame is 154 pound. Her highest weight was 278 pounds. Body mass index is reduced from 45.0. ENDOCRINE: Resolved diabetes type 2. No hypothyroidism. RESPIRATORY: Resolved obstructive sleep apnea. No asthma. CARDIOVASCULAR: Resolved prolonged QT. Hypertension is now resolved. History of valvular replacement for congestive heart failure. GASTROINTESTINAL: No reports of dumping syndrome. Gastroesophageal reflux disease is completely resolved. HEENT: She had removal of her mandibular tooth abscess. She still has poor dentition and requires extraction of all her teeth. Future dentures are pending at this time. MUSCULOSKELETAL: Reports osteoarthritis of the back including hips. NEURO: No reports of recent stroke or seizure disorder. History of chronic pain. HEMATOLOGIC: No recent DVTs or pulmonary embolisms. PSYCH: History chronic pain including depression. Slight to moderate reduction in her antidepressant medications. PHYSICAL EXAM: VITAL SIGNS: 5 foot 6, 133 pounds. Body mass is 21.5 Vital Signs Temp 97.7 F 02/25/18 16:00 Pulse 98 02/25/18 16:00 Resp 16 02/25/18 16:00 BP 117/79 02/25/18 16:00 Pulse Ox ABDOMEN: Soft, nontender, nondistended. MUSCULOSKELETAL: No clubbing, cyanosis, or edema. GENERAL: Well-developed female in no acute distress. CARDIOVASCULAR: Regular rate and rhythm, 2+ distal pulses. HEENT: Head atraumatic, normocephalic. No nasal drainage. Hears is conversational speech. CHEST: Nonlabored respirations. Equal bilateral excursions. NECK: Supple without lymphadenopathy. NEURO: No focal or lateralizing signs. Cranial nerves II through XII grossly intact. PSYCH: Appropriate affect. Alert and oriented to person, place and time. SKIN: Well perfused. Good skin turgor. ASSESSMENT: 1. Morbid obesity and excess calories. 2. Body mass index reduced from 45.0 down to 21.5 3. Status post gastric bypass. 4. Restless leg syndrome. 5. Obstructive sleep apnea, resolved. 6. Secondary hyperparathyroidism. 7. Thiamine deficiency, resolved. 8. Hypertriglyceridemia. 9. Prior history of active tobacco use, now in remission. 10. Yyr-nrbgnlq-hpniftcua type 2 diabetes, resolved. 11. Diabetic gastroparesis. 12. History of gout. 13. History of Hernandez's esophagus. 14. Chronic obstructive pulmonary disease. 15. Vitamin D deficiency, resolved 16. Hyperlipidemia. 17. Congestive heart failure from hypertension. 18. Iron deficiency anemia. 19. Vitamin A deficiency. 20. Hypertensive heart disease, resolved. 21. Status post valvular replacement. 22. Panniculitis. PLAN: 1. Recommend upper scope for epigastric abdominal pain for risk of gastrojejunal ulcer and stricture 2. Recommend CT scan of the abdomen and pelvis with IV and oral contrast for small bowel obstruction with history of gastric bypass. Diverticulitis cannot be excluded. 3. She reports poor memory. Vitamin deficiency such as thiamine may cause similar symptoms. 4. Recommend bariatric metabolic labs as she presents with excessive weight loss and fatigue. Laboratory Last Values WBC 6.5 k/uL (3.8-10.6) 02/25/18 16:36 RBC 4.95 m/uL (3.80-5.40) 02/25/18 16:36 Hgb 14.4 gm/dL (11.4-16.0) 02/25/18 16:36 Hct 44.3 % (34.0-46.0) 02/25/18 16:36 MCV 89.5 fL (80.0-100.0) 02/25/18 16:36 MCH 29.2 pg (25.0-35.0) 02/25/18 16:36 MCHC 32.6 g/dL (31.0-37.0) 02/25/18 16:36 RDW 16.4 % (11.5-15.5) H 02/25/18 16:36 Plt Count 169 k/uL (150-450) 02/25/18 16:36 Anisocytosis Slight 02/25/18 16:36 PT 10.6 sec (9.0-12.0) 02/25/18 16:36 INR 1.0 (<1.2) 02/25/18 16:36 APTT 25.7 sec (22.0-30.0) 02/25/18 16:36 Sodium 139 mmol/L (135-145) 02/25/18 16:36 Potassium 4.7 mmol/L (3.5-5.5) 02/25/18 16:36 Chloride 107 mmol/L (96-109) 02/25/18 16:36 Carbon Dioxide 26.4 mmol/L (21.6-31.8) 02/25/18 16:36 Anion Gap 5.60 mmol/L (4.00-12.00) 02/25/18 16:36 BUN 15.0 mg/dL (9.0-27.0) 02/25/18 16:36 Creatinine 0.8 mg/dL (0.6-1.5) 02/25/18 16:36 Est GFR (CKD-EPI)AfAm 95.5 (60.0-200.0) 02/25/18 16:36 Est GFR (CKD-EPI)NonAf 82.4 (60.0-200.0) 02/25/18 16:36 BUN/Creatinine Ratio 18.75 Ratio (12.00-20.00) 02/25/18 16:36 Glucose 97 mg/dL (70-110) 02/25/18 16:[address] Glu mg/dL 108 02/25/18 16:36 Hemoglobin A1c 5.4 % (4.0-6.0) 02/25/18 16:36 Calcium 9.0 mg/dL (8.7-10.3) 02/25/18 16:36 Phosphorus 4.2 mg/dL (2.4-5.1) 02/25/18 16:36 Magnesium 1.9 mg/dL (1.5-2.4) 02/25/18 16:36 Iron 91 ug/dL (50-170) 02/25/18 16:36 TIBC 315 ug/dL (228-460) 02/25/18 16:36 Iron Saturation 28.89 (12.00-45.00) 02/25/18 16:36 Ferritin 40.2 ng/mL (10.0-291.0) 02/25/18 16:36 Total Bilirubin 0.3 mg/dL (0.3-1.2) 02/25/18 16:36 AST 34 U/L (13-35) 02/25/18 16:36 ALT 47 U/L (8-44) H 02/25/18 16:36 Alkaline Phosphatase 98 U/L (41-126) 02/25/18 16:36 Total Protein 5.9 g/dL (6.2-8.2) L 02/25/18 16:36 Albumin 4.10 g/dL (3.80-4.90) 02/25/18 16:36 Globulin 1.8 g/dL (1.6-3.3) 02/25/18 16:36 Albumin/Globulin Ratio 2.28 g/dL (1.20-2.10) H 02/25/18 16:36 Prealbumin 28.0 mg/dL (18.0-42.0) 02/25/18 16:36 Triglycerides 121.0 mg/dL (0.0-149.0) 02/25/18 16:36 Cholesterol 182 mg/dL (0-200) 02/25/18 16:36 LDL Cholesterol, Calc 72.8 mg/dL (0.0-131.0) 02/25/18 16:36 VLDL Cholesterol, Calc 24.20 mg/dL (5.00-40.00) 02/25/18 16:36 HDL Cholesterol 85.0 mg/dL (40.0-60.0) H 02/25/18 16:36 Cholesterol/HDL Ratio 2.14 02/25/18 16:36 Vitamin A 70 ug/dL (38-106) 02/25/18 16:36 Vitamin B1 94 ug/L (38-122) 02/25/18 16:36 Vitamin B12 797.0 pg/mL (200.0-944.0) 02/25/18 16:36 Vitamin D 25-Hydroxy 54.8 ng/mL (30.0-100.0) 02/25/18 16:36 Folate >24.0 ng/mL 02/25/18 16:36 TSH 2.250 uIU/mL (0.350-5.500) 02/25/18 16:36 PTH Intact 147.2 pg/mL (14.0-72.0) H 02/25/18 16:36 Copper 895 ug/L (810-1990) 02/25/18 16:36 Selenium 154 mcg/L (63-160) 02/25/18 16:36 Zinc 60 ug/dL (60-130) 02/25/18 16:36 Objective - Labs CBC & Chem 7: 02/25/18 16:36 02/25/18 16:36
[2018-02-25 16:10] VITALS: BP 117/79; PULSE 98; RESP 16; TEMP 97.7; BMI 21.4
[2018-02-25 17:01] LABS: Anisocytosis Slight; HCT 44.3 % (34.0-46.0); HGB 14.4 gm/dL (11.4-16.0); MCH 29.2 pg (25.0-35.0); MCHC 32.6 g/dL (31.0-37.0); MCV 89.5 fL (80.0-100.0); Mean Platelet Volume 7.9; Platelet Count 169 k/uL (150-450); RBC 4.95 m/uL (3.80-5.40); RDW 16.4 % (11.5-15.5); WBC 6.5 k/uL (3.8-10.6)
[2018-02-25 17:12] LABS: Partial Thromboplastin Time 25.7 sec (22.0-30.0); Prothrombin Time 10.6 sec (9.0-12.0)
[2018-02-26 03:02] LABS: Iron Saturation 28.89 (12.00-45.00)
[2018-02-26 03:07] LABS: Albumin 4.1 g/dL (3.80-4.90); Albumin/Globulin Ratio 2.28 (1.20-2.10); Anion Gap 5.6 mmol/L (4.00-12.00); Carbon Dioxide 26.4 mmol/L (21.6-31.8); Globulin 1.8 g/dL (1.6-3.3); LDL Cholesterol,Calculated 72.8 mg/dL (0.0-131.0); Magnesium 1.9 mg/dL (1.5-2.4); Phosphorus 4.2 mg/dL (2.4-5.1); Potassium 4.7 mmol/L (3.5-5.5); Total Bilirubin 0.3 mg/dL (0.3-1.2); Total Protein 5.9 g/dL (6.2-8.2); VLDL Calculation 24.2 mg/dL (5.00-40.00)
[2018-02-26 03:11] LABS: Vitamin D 25 Hydroxy 54.8 ng/mL (30.0-100.0)
[2018-02-26 03:14] LABS: Folate, Serum >24.0 ng/mL
[2018-02-26 03:25] LABS: Parathyroid Hormone Intact 147.2 pg/mL (14.0-72.0)
[2018-02-26 04:17] LABS: Hemoglobin A1C 5.4 % (4.0-6.0)
[2018-02-26 15:19] LABS: Vitamin A 70 ug/dL (38-106)
[2018-02-26 15:24] LABS: Zinc, Serum 60 ug/dL (60-130)
[2018-02-27 05:35] LABS: Vitamin B1 94 ug/L (38-122)
[2018-03-02 19:22] LABS: Selenium 154 mcg/L (63-160)
== END | disposition home or self-care (01) ==
LOC: BARWHC3 15:22
PROVIDERS: ATTEND Surgery Plastic and Reconstructive Surgery
DX: Z48.815 Encounter for surgical aftercare following surgery on the digestive system (principal); E66.01 Morbid (severe) obesity due to excess calories; G25.81 Restless legs syndrome; I11.0 Hypertensive heart disease with heart failure; I50.9 Heart failure, unspecified; E78.1 Pure hyperglyceridemia; E11.43 Type 2 diabetes mellitus with diabetic autonomic (poly)neuropathy; K31.84 Gastroparesis; E78.5 Hyperlipidemia, unspecified; D50.9 Iron deficiency anemia, unspecified; E50.9 Vitamin A deficiency, unspecified; M79.3 Panniculitis, unspecified; E21.1 Secondary hyperparathyroidism, not elsewhere classified; K90.9 Intestinal malabsorption, unspecified; E55.9 Vitamin D deficiency, unspecified; K76.9 Liver disease, unspecified; N19 Unspecified kidney failure; K50.90 Crohn's disease, unspecified, without complications; E89.1 Postprocedural hypoinsulinemia; Z68.21 Body mass index [BMI] 21.0-21.9, adult; Z87.19 Personal history of other diseases of the digestive system; Z87.39 Personal history of other diseases of the musculoskeletal system and connective tissue; Z87.891 Personal history of nicotine dependence; Z98.84 Bariatric surgery status; Z90.49 Acquired absence of other specified parts of digestive tract; Z98.890 Other specified postprocedural states; Z79.02 Long term (current) use of antithrombotics/antiplatelets; Z79.51 Long term (current) use of inhaled steroids; Z79.899 Other long term (current) drug therapy
CPT/HCPCS: 84255; 84134; 84425; 80061; 80053; 82607; 82728; 82525; 82746; 83540; 83550; 83735; 84100; 84443; 84590; 84630; 85027; 85610; 85730; 82306; 83970; 83036; 36415; G0463; 99211

== ENCOUNTER 2018-02-26 05:57 | Day surgery (SDC) | payer MEDICARE ==
[2018-02-19 15:06] VITALS: BMI 21.6
[~2018-02-26 05:57] MED LIST changes: -LACTATED RINGERS 1,000 ML IV ONE; -LACTATED RINGERS 1,000 ML IV SCH; +SODIUM CHLORIDE 0.9% 500 ML 500 ML IV SCH
[2018-02-26] MEDS ORDERED: LIDOCAINE 1% 20 ML VIAL (10MG/ML) FOR IV START INTRADERMA ONE (06:07)
[2018-02-26 06:21] VITALS: RESP 16; TEMP 98
[2018-02-26] MEDS ORDERED: LACTATED RINGERS 1,000 ML IV ONE ×2 (06:25→07:35)
[2018-02-26 07:53] VITALS: BP 113/70; PULSE 79
--- NOTE | 2018-02-26 08:22 | XR ---
EXAMINATION TYPE: XR chest 1V portable DATE OF EXAM: 02/26/2018 COMPARISON: 01/05/2018 HISTORY: Concern for pneumothorax. Status post right intercostal suprascapular injection. TECHNIQUE: Single frontal view of the chest is obtained. FINDINGS: There is no focal air space opacity, pleural effusion, or pneumothorax seen. Post CABG ch anges of the mediastinum are noted. The cardiac silhouette size is within normal limits. Rounded nip ple shadow is present at the left lung base and subtly seen symmetrically at the right lung base. The osseous structures are intact. Spinal nerve stimulator is partially visualized. Cervical fusion bryson ce is seen. IMPRESSION: No acute cardiopulmonary process.
--- NOTE | 2018-02-26 08:31 | P.PCN ---
Date of Procedure: 02/26/18 Procedure(s) Performed: PROCEDURE: 1- right sided T7, T8, T9 Intercostal nerve block under fluoroscopic guidance. 2-right side suprascapular nerve block under fluoroscopy guidance PREOP DIAGNOSIS: 1-Intercostal neuralgia. [id number] parascapular neuralgia POSTOP DIAGNOSIS: Same as preoperative diagnosis ANESTHESIA: Moderate sedation with Versed 2 mg , and Fentanyl 100 g EBL: Minimal COMPLICATION: None. IV FLUIDS: 100 mL of normal saline. PROCEDURE INDICATION: Chronic right-sided thoracic pain secondary to intercostals neuralgia , and upper back pain secondary to right suprascapular neuralgia PROCEDURE DESCRIPTION: The patient was seen and identified in the preoperative area. Risks, benefits, complications, and alternatives were discussed with the patient. The patient agreed to proceed with the procedure and signed the consent. IV was started. Vital signs were stable throughout the procedure. The patient was taken to the procedure room and was placed in the prone position on the procedure table. The thoracic area was prepped and draped in the usual sterile fashion. Critical pause was taken. Using anteroposterior fluoroscopy, the right T T7 rib on the right/left side was identified. An area approximately 2 inches lateral to the vertebral midline was localized under fluoroscopy. Subsequently, a 25-gauge, 3-1/2-inch needle was advanced under fluoroscopy towards the inferior aspect of the rib. After making contact with the rib, the needle was walked off and carefully slipped inferiorly off the rib. After negative aspiration and with the absence of paresthesias, 1,5 ml of Bupivacaine 0.5 % . The needle was subsequently removed while being flushed with Ropivacaine 0.5% and the same procedure was repeated at the levels of Right T8 and Right T9 ( total of 4.5 ML of 0.5% ropivacaine used mixed with 20 mg of Depo-Medrol ) Then the right side suprascapular nerve block done by placing 25-gauge needle and the location of the right suprascapular nerve , needle placement confirmed under fluoroscopy, and after appropriate needle placement confirmed, ropivacaine 0.5% 4 ML ,and 20 mg of Depo-Medrol injected after negative aspiration At the end of the procedure, skin was cleansed, and bandages were applied. Patient denied any shortness of breath after the procedure. Lungs auscultation showed clear and equal air entry bilaterally after the procedure. The patient tolerated the procedure well without complications. Patient was observed in the recovery area until she met all discharge criteria.
--- NOTE | 2018-02-26 08:33 | FL ---
EXAMINATION TYPE: FL guided pain mgmt statistic DATE OF EXAM: 02/26/2018 CLINICAL HISTORY: pain. TECHNIQUE: Fluoroscopy. COMPARISON: None. FINDINGS/IMPRESSION: Fluoroscopic guidance was provided during pain relief procedure performed by Dr Sebastian Mitchell . A total of 18 seconds of fluoroscopic time was utilized during the procedure and 3 spot images are acquired. Images acquired shows needle localization at multiple intercostal spaces and i n the scapular region.
== END 2018-02-26 08:40 | disposition home or self-care (01) ==
LOC: ORPAIN 05:57
PROVIDERS: ATTEND Specialist
DX: G89.29 Other chronic pain (principal); G58.8 Other specified mononeuropathies; I50.9 Heart failure, unspecified; J44.9 Chronic obstructive pulmonary disease, unspecified; Z86.73 Personal history of transient ischemic attack (TIA), and cerebral infarction without residual deficits; K22.70 Barrett's esophagus without dysplasia; Z91.018 Allergy to other foods
CPT/HCPCS: 71045; 64418; 64421; J2250; J1030; J3010; Q9966; 99152

== ENCOUNTER 2018-03-11 06:26 | Day surgery (SDC) | payer MEDICARE ==
[2018-03-11] MEDS ORDERED: LACTATED RINGERS 1,000 ML IV ONE (06:55)
[2018-03-11] MEDS ORDERED: LIDOCAINE 1% 20 ML VIAL (10MG/ML) FOR IV START INTRADERMA ONE (06:55)
[2018-03-11 06:58] VITALS: RESP 16; TEMP 97.8
[2018-03-11] MEDS ORDERED: SODIUM CHLORIDE 0.9% 500 ML 500 ML IV SCH (07:01)
[2018-03-11] MEDS ORDERED: IV FLUID CONTINUATION 1,000 ML IV ONE (08:37)
--- NOTE | 2018-03-11 08:48 | FL ---
Fluoroscopy INDICATION: Pain FINDINGS: Fluoroscopy time: 6 seconds. Images obtained: 1. IMPRESSIONS: 1. Documentation of fluoroscopy.
[2018-03-11 08:57] VITALS: BP 123/78; PULSE 86
--- NOTE | 2018-03-11 09:32 | P.PCN ---
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 IV FLUIDS: 100 mL of normal saline. PROCEDURE INDICATION: Chronic right-sided thoracic pain secondary to intercostals neuralgia , and upper back pain secondary to right suprascapular neuralgia PROCEDURE DESCRIPTION: The patient was seen and identified in the preoperative area. Risks, benefits, complications, and alternatives were discussed with the patient. The patient agreed to proceed with the procedure and signed the consent. She understands that with needle placement in and near the thoracic cage there is a possibility for pneumothorax. She understands and agrees to proceed. IV was started. Vital signs were stable throughout the procedure. The patient was taken to the procedure room and was placed in the prone position on the procedure table. The thoracic area was prepped and draped in the usual sterile fashion. Critical pause was taken. Using anteroposterior fluoroscopy, the right T T7 rib on the right/left side was identified. An area approximately 2 inches lateral to the vertebral midline was localized under fluoroscopy and with the use of ultrasound and in plain guidance of needle under the inferior portion intercostal space. Under direct visualization one mL of 0.5% ropivacaine with 3.3 mg dexamethasone were injected. The same procedure was repeated at the levels of Right T8 and Right T9 with the same amount of medication. Fluoroscopy was used to identify the intercostal space, and ultrasound was used to directly visualize the needle targeting the inferior portion of the rib. Then the right side suprascapular nerve block done by placing 25-gauge needle and the location of the right suprascapular nerve , needle placement confirmed under ultrasound, and after appropriate needle placement confirmed, ropivacaine 0.5% 4 ML ,and 10 mg dexamethasone after negative aspiration At the end of the procedure, skin was cleansed, and bandages were applied. Patient denied any shortness of breath after the procedure. Lungs auscultation showed clear and equal air entry bilaterally after the procedure. The patient tolerated the procedure well without complications. Patient was observed in the recovery area until she met all discharge criteria.
== END 2018-03-11 09:10 | disposition home or self-care (01) ==
LOC: ORPAIN 06:26
PROVIDERS: ATTEND Anesthesiology
DX: G89.29 Other chronic pain (principal); G58.8 Other specified mononeuropathies; M79.18 Myalgia, other site
CPT/HCPCS: 64418; 64421; J2250; J1100; J3010; 99152

== ENCOUNTER → 2018-03-31 | Outpatient (CLI) | payer MEDICARE ==
[2018-03-31 12:26] VITALS: BP 111/70; PULSE 88; RESP 18
--- NOTE | 2018-04-01 06:20 | P.PN ---
Subjective Progress Note Date: 03/31/18 This is a follow-up visit for this 57-year-old female with a chronic history of severe mid back pain, diagnosed with thoracic radiculopathy, we have done transforaminal epidural steroid injection at T8 9 levels x3 ,she continued to have severe mid back pain with radiation to the right side only, and later on we did intercostal nerve block right side T7-T8 and T9 x2 , and she reports that she continued to have mid back pain , and currently the pain is localized between T7 to T9 level , is only in the midline in the thoracic , and the pain currently not radiated to the shoulder or to the chest wall , the Characteristic of the pain changed after the intercostal nerve block, and currently the pain is not radiating to the chest wall,she denies any motor or sensory deficit she denies any fever or night sweats, and there is no change in the bowel movements or urination, she continued to use baclofen 10 mg 3 times a day, and Percocet 10/325 every 6 hours she is getting prescription refills from her primary care she denies any side effect of the medication Physical Examinations : 1-Constitutiona : Cooperative , not in acute distress . 2-HEENT : nech ; supple , no Lymphadenopathy , normal thyroid size . eyes : no ptosis , no icterus, no photophobia 7- neurologic : Cranial nerve II to XII intact , no focal neurological deffecit . 8-psychatric : alert , oriented X 3 , appropriate affect , intact judgment and insight . 9-Lymphatic : no Lymphadenopathy . 10- musculoskeltal : Severe tenderness over the right shoulder blade area Cervical Spine motor stregnth in the deltoid and biceps, normal right side , normal Left side motor stregnth biceps and the wrist extensors normal right side ,normal left side . motor stregnth in the triceps muscle . normal Right side , normal Left side deep tendon reflexes normal at the biceps , normal at Brachioradialis , normal at triceps. Thoracic spine = severe tenderness at the locations of the spinal cord stimulator leads , there is no erythema, no discharg ( Tenderness over T7 to T9 vertebra ) Lumber spine moter stegnth lower extremities , thigh and legs 5/5 Right side , 5/5 Left side Assessment and plan= Thoracic radiculopathy , intercostal neuralgia ,myofascial pain syndrome thoracic area ,patient had no movement benefit from transforaminal epidural steroid injections. T8-9 levels Status post right-sided intercostal nerve block T7/T8/T9, patient continued to have severe mid back pain at the location of spinal cord stimulator leads Patient's reported that she did not use the stimulator for several years, I recommend to remove the spinal cord stimulator leads and the generator, and if she continued to have Mid back pain, then it will be warranted to order MRI of the thoracic spine, patient will be referred for evaluation by neurosurgery. PQRS Measure Charge Sheet Measure #130: Documentation of Current Meds in Medical Chart: Patient's medications documented in chart Measure #226: Tobacco Use: Screen & Cessation Intervention: Pt screened for tobacco use AND intervention given Measure #111: Pneumonia Vaccination: Pneumococcal vaccine NOT administered or previously given Measure #47: Advance Care Plan: Advance care planning discussed & documented, pt chose/unable to give Measure #412: Opioid Treatment Agreement: No documentation of signed opioid treatment agreement Measure #408: Opioid Therapy Follow-up Evaluation: Patient had NO f/u eval minimum every 3 months during opioid therapy Measure #317: Preventitive Care & Scrn High Bld Press & F/U: Normal blood pressure, f/u not required Measure #128: Body Mass Index (BMI) Screening & Follow-up: BMI documented within normal parameters Measure #131: Pain Assessment & Follow-up: Pain positive & plan documented, Follow-up scheduled Measure #431: Unhealthy Alcohol Use Preventative Care & Scrn: Patient not identified as an unhealthy alcohol user PQRS Narrative: - Controlled Substance Measures Is patient prescribed a controlled substance at discharge?: No When asked, does pt state using other controlled substances?: No If prescribed controlled substance>3 days was MAPS reviewed?: No If Rx opioid, was Start Talking consent form obtained?: No If opioid is for acute pain is fill amount 7 days or less?: No Was information provided regarding opioid addiction?: No Objective - Vital Signs Vital signs: Vital Signs Temp Pulse 88 03/31/18 12:16 Resp 18 03/31/18 12:16 BP 111/70 03/31/18 12:16 Pulse Ox 96 03/31/18 12:16
== END | disposition home or self-care (01) ==
LOC: PNWHC3 11:38
PROVIDERS: ATTEND Specialist
DX: G89.29 Other chronic pain (principal); M54.14 Radiculopathy, thoracic region; M79.18 Myalgia, other site
CPT/HCPCS: 99211

== ENCOUNTER → 2018-04-02 | Outpatient (CLI) | payer MEDICARE ==
--- NOTE | 2018-04-02 16:09 | CT ---
EXAMINATION TYPE: CT abdomen pelvis w con DATE OF EXAM: 04/02/2018 COMPARISON: Prior CT 08/20/2017 HISTORY: Weight loss, diverticulitis of large intestine without perforation, abscess or bleeding, que stioning bowel obstruction CT DLP: 443.1 mGycm Automated exposure control for dose reduction was used. TECHNIQUE: Helical acquisition of images from the lung bases through the pelvis have been completed. CONTRAST: Performed with Oral Contrast and with IV Contrast, patient injected with 100 mL of Isovue 300. FINDINGS: Artifact present at the level of the mitral valve is again noted, no pleural or pericardial effusion. LUNG BASES: No significant abnormality is appreciated. AORTA: No significant abnormality is appreciated. LIVER/GB: The liver is enlarged as on prior. Patient is post cholecystectomy, there is mild prominenc e of biliary system likely due to postcholecystectomy change.. PANCREAS: No significant abnormality is seen. SPLEEN: Spleen is enlarged as on prior. ADRENALS: No significant abnormality is seen. KIDNEYS: No significant abnormality is seen. Heterogeneity and enhancement of the kidneys has improve d in the interval. REPRODUCTIVE ORGANS: No significant abnormality is seen BOWEL: Postop changes again noted in the upper abdomen, correlate for appropriate surgical history. No evident bowel obstruction. FREE AIR: No Free Air visible. ASCITES: None visible. PELVIC ADENOPATHY: None visualized. RETROPERITONEAL ADENOPATHY: No Retroperitoneal Adenopathy visible. URINARY BLADDER: No significant abnormality is seen. OSSEOUS STRUCTURES: No significant interval change is seen. IMPRESSION: POSTOP CHANGES. HEPATOSPLENOMEGALY.
== END | disposition home or self-care (01) ==
LOC: RADCTMAIN 13:22
PROVIDERS: ATTEND Surgery Plastic and Reconstructive Surgery
DX: R16.2 Hepatomegaly with splenomegaly, not elsewhere classified (principal); Z98.890 Other specified postprocedural states; Z91.018 Allergy to other foods
CPT/HCPCS: 82565; 84520; 74177; 36415; Q9967

== ENCOUNTER 2018-05-10 20:12 | Inpatient (IN) | payer MEDICARE ==
[2018-05-10] MEDS ORDERED: SODIUM CHLORIDE 0.9% 500 ML 500 ML IV STA (20:37)
[2018-05-10] MEDS ORDERED: SODIUM CHLORIDE 0.9% 1,000 ML IV STA ×2 (20:37)
[2018-05-10] MEDS ORDERED: LORazepam 2 MG/ML INJ IV STA (20:37)
[2018-05-10] MEDS ORDERED: ONDANSETRON 4 MG/2 ML VIAL IVP STA (20:37)
[2018-05-10] MEDS ORDERED: MORPHINE SULFATE 4 MG/ML SYRINGE IV STA (20:37)
--- NOTE | 2018-05-10 20:38 | ED ---
Altered Mental Status HPI <Carlos Enrique Lee - Last Filed: 05/11/18 00:19> - General Source: patient, RN notes reviewed, old records reviewed Mode of arrival: ambulatory Limitations: no limitations - History of Present Illness MD Complaint: altered mental status, confusion -: hour(s) Severity: severe Consistency of Symptoms: getting worse Context: drug abuse (Addiction to opiates prescription) Associated Symptoms: diaphoresis, fever/chills, loss of appetite, nausea/vomiting, weakness <Klaus Montalvo - Last Filed: 05/11/18 17:02> - General Chief Complaint: Neuro Symptoms/Deficit Stated Complaint: vomiting Time Seen by Provider: 05/10/18 20:36 - History of Present Illness Initial Comments: This is a 57-year-old female the ER for evaluation. Patient is today for evaluation of altered mental status, significant progression of not acting appropriately throughout the day. Positive nausea positive vomiting, patient is hysterical, not acting appropriately. Family states patient was taken off but did take her last Percocet on , was taken off opiates by primary care facility abnormal drug screen. Patient herself denies any chest pain or shortness of breath. Just admits to nausea vomiting. Denies abdominal pain no chest pain. Weakness and paresthesias are present. (Klaus Montalvo) - Related Data Home Medications Medication Instructions Recorded Confirmed Albuterol Nebulized [Ventolin 2.5 mg INHALATION RT-TID 07/07/13 05/10/18 Nebulized] Venlafaxine HCl [Effexor XR] 150 mg PO BID 01/12/15 05/10/18 Cholecalciferol (Vitamin D3) 5,000 unit PO DAILY 02/13/17 05/10/18 [Vitamin D3] Pantoprazole [Protonix] 40 mg PO BID 09/03/17 05/10/18 Albuterol Sulfate [Proair Hfa] 1 - 2 puff INHALATION RT-Q6H PRN 11/17/17 05/10/18 Budesonide/Formoterol Fumarate 2 puff INHALATION RT-BID 11/17/17 05/10/18 [Symbicort 160-4.5 Mcg Inhaler] Tiotropium Bosque [Spiriva] 1 cap INHALATION RT-DAILY 11/17/17 05/10/18 Alive Ultra Potency 120 mg PO DAILY 12/10/17 05/10/18 Acetaminophen/Diphenhydramine 1 tab PO HS 12/30/17 05/10/18 [Tylenol PM 500-25mg] Calcium Carb/Vitamin D3/Vit K2 1 each PO DAILY 02/19/18 05/10/18 [Calcium Plus Menaq7 Adult Tab] Multivitamin/Iron/Folic Acid 1 each PO DAILY 02/19/18 05/10/18 [Centrum Adults Tablet] Gabapentin [Neurontin] 600 mg PO TID 05/10/18 05/10/18 Ibuprofen [Motrin Ib] 200 mg PO QID PRN 05/10/18 05/10/18 Methocarbamol [Robaxin-750] 750 mg PO TID 05/10/18 05/10/18 Midodrine HCl [ProAmantine] 2.5 mg PO BID 05/10/18 05/10/18 Mirabegron [Myrbetriq] 25 mg PO HS 05/10/18 05/10/18 Vitamin E (Dl,Tocopheryl Acet) 400 unit PO DAILY 05/10/18 05/10/18 [Vitamin E] Previous Rx's Medication Instructions Recorded Methocarbamol [Robaxin] 750 mg PO TID 3 Days #9 tab 05/11/18 oxyCODONE HCL/ACETAMINOPHEN 1 tab PO Q12HR PRN 6 Days #12 tab 05/11/18 [Percocet 5-325 mg] Allergies Allergy/AdvReac Type Severity Reaction Status Date / Time Mushroom AdvReac Nausea & Verified 05/10/18 21:04 Vomiting Review of Systems ROS Other: All systems not noted in ROS Statement are negative. <Carlos Enrique Lee - Last Filed: 05/11/18 00:19> ROS Other: All systems not noted in ROS Statement are negative. <Klaus Montalvo - Last Filed: 05/11/18 17:02> ROS Statement: Those systems with pertinent positive or pertinent negative responses have been documented in the HPI. Past Medical History Past Medical History: Blood Disorder, Heart Failure, COPD, CVA/TIA, Fibromyalgia, GERD/Reflux, Hypertension, Liver Disease, Osteoarthritis (OA) Additional Past Medical History / Comment(s): Past SHIPMAN'S ESOPHAGUS-surgicall y removed, past hiatal hernia, chronic back and neck pain, stroke 02/2015, TIA 06/2016 with L arm weakness, chronic bronchitis, sinus problems, hx migraines, hx tooth abscess. Pt has Spinal Cord Stimulator. PROBLEMS WITH BALANCE AND HX OF FALLS. Anemia. History of Any Multi-Drug Resistant Organisms: None Reported Past Surgical History: Appendectomy, Back Surgery, Bariatric Surgery, Section, Cholecystectomy, Hernia Repair, Joint Replacement, Orthopedic Surgery, Tubal Ligation Additional Past Surgical History / Comment(s): BACK SURGERY X2, NECK SURGERYX2, including a fusion, had SPINAL CORD STIMULATOR implanted in back (tens unit), cervical fusion, LAP GABRIEL EN Y (11/06/15), EGDs and EGD with dilation and removal of a staple that had migrated, colonoscopy/benign polypectomy, bilateral knee injections. Open heart surgery with valve replacement, HAD 13 TEETH EXTRACTED. Past Anesthesia/Blood Transfusion Reactions: Motion Sickness, Postoperative Nausea & Vomiting (PONV) Additional Past Anesthesia/Blood Transfusion Reaction / Comment(s): SLOW TO WAKE UP FROM ANESTHESIA. Past Psychological History: Depression Smoking Status: Current every day smoker Past Alcohol Use History: None Reported Past Drug Use History: None Reported - Past Family History Sister(s) Family Medical History: Myocardial Infarction (PA) Additional Family Medical History / Comment(s): at age 43 of PA. Mother Family Medical History: Myocardial Infarction (PA) Additional Family Medical History / Comment(s): Mother at age 62 of [place]. Father Family Medical History: Myocardial Infarction (PA) Additional Family Medical History / Comment(s): Father in his 40's of a PA. <Klaus Montalvo - Last Filed: 05/11/18 17:02> General Exam Limitations: altered mental status General appearance: alert, anxious Head exam: Present: atraumatic, normocephalic, normal inspection Eye exam: Present: normal appearance, PERRL, EOMI. Absent: scleral icterus, conjunctival injection, periorbital swelling ENT exam: Present: normal exam, mucous membranes moist Neck exam: Present: normal inspection. Absent: tenderness, meningismus, lymphadenopathy Respiratory exam: Present: normal lung sounds bilaterally. Absent: respiratory distress, wheezes, rales, rhonchi, stridor Cardiovascular Exam: Present: regular rate, normal rhythm, normal heart sounds. Absent: systolic murmur, diastolic murmur, rubs, gallop, clicks GI/Abdominal exam: Present: soft, normal bowel sounds. Absent: distended, tenderness, guarding, rebound, rigid Extremities exam: Present: normal inspection, full ROM, normal capillary refill. Absent: tenderness, pedal edema, joint swelling, calf tenderness Back exam: Present: normal inspection Neurological exam: Present: alert, altered, oriented X3, CN II-XII intact Psychiatric exam: Present: agitated, anxious Skin exam: Present: warm, dry, intact, normal color. Absent: rash <Klaus Montalvo - Last Filed: 05/11/18 17:02> Course <Klaus Montalvo - Last Filed: 05/11/18 17:02> Vital Signs 05/10/18 05/10/18 05/10/18 20:19 23:09 23:10 Temperature 97.7 F Pulse Rate 91 81 81 Respiratory 18 13 13 Rate Blood Pressure 153/96 150/98 143/99 O2 Sat by Pulse 96 97 96 Oximetry 05/10/18 05/11/18 05/11/18 23:30 00:20 00:30 Temperature Pulse Rate 81 70 66 Respiratory 15 13 14 Rate Blood Pressure 134/94 137/103 113/94 O2 Sat by Pulse 98 90 L 99 Oximetry 05/11/18 05/11/18 05/11/18 00:40 00:41 01:00 Temperature Pulse Rate 67 66 67 Respiratory Rate Blood Pressure 113/94 125/89 116/88 O2 Sat by Pulse 92 L 99 99 Oximetry 05/11/18 05/11/18 05/11/18 01:30 01:32 01:50 Temperature Pulse Rate 66 70 Respiratory 14 Rate Blood Pressure 125/82 146/96 O2 Sat by Pulse 99 100 Oximetry 05/11/18 05/11/18 05/11/18 02:10 02:50 02:53 Temperature Pulse Rate 64 68 Respiratory 16 Rate Blood Pressure 140/96 146/77 O2 Sat by Pulse 99 98 Oximetry 05/11/18 05/11/18 05/11/18 03:06 03:10 03:30 Temperature Pulse Rate 67 68 70 Respiratory 15 16 Rate Blood Pressure 140/93 132/96 O2 Sat by Pulse 97 100 Oximetry - Reevaluation(s) Reevaluation #1: 05/10/18 21:11 Medical record is reviewed (Klaus Montalvo) Reevaluation #2: 05/10/18 21:11 Symptoms improving with medication (Klaus Montalvo) Medical Decision Making - Lab Data Result diagrams: 05/10/18 20:03 05/10/18 20:03 <Carlos Enrique Lee - Last Filed: 05/11/18 00:19> - Lab Data Result diagrams: 05/11/18 13:48 05/11/18 13:48 - EKG Data -: EKG Interpreted by Me (EKG shows normal sinus rhythm rate of 89, HI 1:30, QRS 86, QTc 459) <Klaus Montalvo - Last Filed: 05/11/18 17:02> - Medical Decision Making Receive this patient as sign out. I went to reevaluate the patient and discussed results with patient and family. At that time the patient appears to be somewhat somnolent secondary to medication she has received. Discussed reversal of the medications but the patient's daughter is refusing. She states that she does not want to see her mother back in the condition that she was on arrival. I did want to reevaluate the patient but will at this point defer to the patient's daughter's request. I discussed case with Dr. Lara, who is covering city call, as patient's daughter refused to have care from former D. (Carlos Enrique Lee) - Lab Data Lab Results 05/10/18 05/10/18 05/10/18 Range/Units 00:22 20:03 20:03 WBC 12.7 H (3.8-10.6) k/uL RBC 4.81 (3.80-5.40) m/uL Hgb 14.4 (11.4-16.0) gm/dL Hct 44.6 (34.0-46.0) % MCV 92.8 (80.0-100.0) fL MCH 30.0 (25.0-35.0) pg MCHC 32.3 (31.0-37.0) g/dL RDW 13.6 (11.5-15.5) % Plt Count 237 (150-450) k/uL Neutrophils % 70 % Lymphocytes % 23 % Monocytes % 5 % Eosinophils % 0 % Basophils % 1 % Neutrophils # 8.9 H (1.3-7.7) k/uL Lymphocytes # 2.9 (1.0-4.8) k/uL Monocytes # 0.6 (0-1.0) k/uL Eosinophils # 0.0 (0-0.7) k/uL Basophils # 0.1 (0-0.2) k/uL PT (9.0-12.0) sec INR (<1.2) APTT (22.0-30.0) sec Sodium 136 L (137-145) mmol/L Potassium 4.5 (3.5-5.1) mmol/L Chloride 108 H (98-107) mmol/L Carbon Dioxide 18 L (22-30) mmol/L Anion Gap 10 mmol/L BUN 15 (7-17) mg/dL Creatinine 0.85 (0.52-1.04) mg/dL Est GFR (CKD-EPI)AfAm 89 (>60 ml/min/1.73 sqM) Est GFR (CKD-EPI)NonAf 77 (>60 ml/min/1.73 sqM) Glucose 127 H (74-99) mg/dL Plasma Lactic Acid Rashard (0.7-2.0) mmol/L Calcium 9.6 (8.4-10.2) mg/dL Phosphorus 5.0 H (2.5-4.5) mg/dL Magnesium 1.7 (1.6-2.3) mg/dL Total Bilirubin 0.5 (0.2-1.3) mg/dL AST 43 H (14-36) U/L ALT 48 (9-52) U/L Alkaline Phosphatase 88 (38-126) U/L Troponin I (0.000-0.034) ng/mL Total Protein 7.1 (6.3-8.2) g/dL Albumin 4.3 (3.5-5.0) g/dL Urine Color Light Yellow Urine Appearance Clear (Clear) Urine pH 5.5 (5.0-8.0) Ur Specific Schurz 1.004 (1.001-1.035) Urine Protein Negative (Negative) Urine Glucose (UA) Negative (Negative) Urine Ketones Negative (Negative) Urine Blood Negative (Negative) Urine Nitrite Negative (Negative) Urine Bilirubin Negative (Negative) Urine Urobilinogen <2.0 (<2.0) mg/dL Ur Leukocyte Esterase Negative (Negative) 05/10/18 05/10/18 05/10/18 Range/Units 20:03 20:03 20:03 WBC (3.8-10.6) k/uL RBC (3.80-5.40) m/uL Hgb (11.4-16.0) gm/dL Hct (34.0-46.0) % MCV (80.0-100.0) fL MCH (25.0-35.0) pg MCHC (31.0-37.0) g/dL RDW (11.5-15.5) % Plt Count (150-450) k/uL Neutrophils % % Lymphocytes % % Monocytes % % Eosinophils % % Basophils % % Neutrophils # (1.3-7.7) k/uL Lymphocytes # (1.0-4.8) k/uL Monocytes # (0-1.0) k/uL Eosinophils # (0-0.7) k/uL Basophils # (0-0.2) k/uL PT 10.7 (9.0-12.0) sec INR 1.0 (<1.2) APTT 26.4 (22.0-30.0) sec Sodium (137-145) mmol/L Potassium (3.5-5.1) mmol/L Chloride (98-107) mmol/L Carbon Dioxide (22-30) mmol/L Anion Gap mmol/L BUN (7-17) mg/dL Creatinine (0.52-1.04) mg/dL Est GFR (CKD-EPI)AfAm (>60 ml/min/1.73 sqM) Est GFR (CKD-EPI)NonAf (>60 ml/min/1.73 sqM) Glucose (74-99) mg/dL Plasma Lactic Acid Rashard 1.0 (0.7-2.0) mmol/L Calcium (8.4-10.2) mg/dL Phosphorus (2.5-4.5) mg/dL Magnesium (1.6-2.3) mg/dL Total Bilirubin (0.2-1.3) mg/dL AST (14-36) U/L ALT (9-52) U/L Alkaline Phosphatase (38-126) U/L Troponin I <0.012 (0.000-0.034) ng/mL Total Protein (6.3-8.2) g/dL Albumin (3.5-5.0) g/dL Urine Color Urine Appearance (Clear) Urine pH (5.0-8.0) Ur Specific Schurz (1.001-1.035) Urine Protein (Negative) Urine Glucose (UA) (Negative) Urine Ketones (Negative) Urine Blood (Negative) Urine Nitrite (Negative) Urine Bilirubin (Negative) Urine Urobilinogen (<2.0) mg/dL Ur Leukocyte Esterase (Negative) Disposition <Carlos Enrique Lee - Last Filed: 05/11/18 00:19> Is patient prescribed a controlled substance at d/c from ED?: No <Klaus Montalvo - Last Filed: 05/11/18 17:02> Clinical Impression: Fibromyalgia, Nausea & vomiting, Dehydration, Abdominal pain, Opiate withdrawal Disposition: ADMITTED IP TO THIS HOSP Condition: Stable
[2018-05-10 20:53] LABS: Basophils # (A) 0.1 k/uL (0-0.2); Basophils % (A) 1 %; Eosinophils % (A) 0 %; HCT 44.6 % (34.0-46.0); HGB 14.4 gm/dL (11.4-16.0); Lymphocytes # (A) 2.9 k/uL (1.0-4.8); Lymphocytes % (A) 23 %; MCHC 32.3 g/dL (31.0-37.0); MCV 92.8 fL (80.0-100.0); Mean Platelet Volume 8.2; Monocytes # (A) 0.6 k/uL (0-1.0); Monocytes % (A) 5 %; Neutrophils # (A) 8.9 k/uL (1.3-7.7); Neutrophils % (A) 70 %; Platelet Count 237 k/uL (150-450); RBC 4.81 m/uL (3.80-5.40); RDW 13.6 % (11.5-15.5); WBC 12.7 k/uL (3.8-10.6)
[2018-05-10 21:01] LABS: Partial Thromboplastin Time 26.4 sec (22.0-30.0); Prothrombin Time 10.7 sec (9.0-12.0)
[2018-05-10 21:11] LABS: Albumin 4.3 g/dL (3.5-5.0); Calcium 9.6 mg/dL (8.4-10.2); Magnesium 1.7 mg/dL (1.6-2.3); Potassium 4.5 mmol/L (3.5-5.1); Total Bilirubin 0.5 mg/dL (0.2-1.3); Total Protein 7.1 g/dL (6.3-8.2)
--- NOTE | 2018-05-10 21:31 | CT ---
EXAMINATION TYPE: CT brain wo con DATE OF EXAM: 05/10/2018 COMPARISON: 06/26/2016 HISTORY: Altered mental status. CT DLP: 1072.4 mGycm Automated exposure control for dose reduction was used. FINDINGS: Ventricles have normal size. There is no mass effect nor midline shift. There is no sign of intracran ial hemorrhage. There is extensive mucosal thickening in the right side ethmoid and sphenoid sinus. I see no focal bone destruction. IMPRESSION: SINUSITIS. NEGATIVE CT SCAN OF THE BRAIN. SINUSITIS APPEARS NEW COMPARED TO OLD EXAM.
[2018-05-11] MEDS ORDERED: NALOXONE 0.4 MG/ML 1 ML VIAL IV PRN (00:17)
[2018-05-11 00:47] LABS: Appearance,Urine Clear (Clear); Bilirubin,Urine Negative (Negative); Blood,Urine Negative (Negative); Color,Urine Light Yellow; Glucose,Urine (UA) Negative (Negative); Ketones,Urine Negative (Negative); Leukocyte Esterase,Urine Negative (Negative); Nitrite,Urine Negative (Negative); PH, Urine 5.5 (5.0-8.0); Protein,Urine Negative (Negative); Specific Gravity,Urine 1.004 (1.001-1.035); Urobilinogen,Urine <2.0 mg/dL (<2.0)
[2018-05-11] MEDS: SODIUM CHLORIDE 0.9% 1,000 ML IV SCH ×2 (01:34→08:28)
[2018-05-11] MEDS ORDERED: ALBUTEROL NEBULIZED 2.5 MG/3 ML INHALATION STA (02:24)
[2018-05-11] MEDS ORDERED: METHADONE 5 MG TAB PO STA (02:52)
[2018-05-11 04:21] VITALS: RESP 18; BMI 20.5
[2018-05-11] MEDS ORDERED: PANTOPRAZOLE 40 MG TABLET PO SCH (07:30)
[2018-05-11] MEDS ORDERED: SYMBICORT 160-4.5 MCG INHALER INHALATION SCH (08:00)
[2018-05-11] MEDS: GABAPENTIN 300 MG CAP PO SCH ×2 (08:26→15:50)
[2018-05-11] MEDS: METHOCARBAMOL 750 MG TAB PO SCH ×2 (08:28→15:50)
[2018-05-11] MEDS ORDERED: ALPRAZolam 0.25 MG TAB PO PRN (08:59)
[2018-05-11] MEDS ORDERED: VENLAFAXINE HCL ER 150 MG CAP PO SCH (09:00)
[2018-05-11] MEDS ORDERED: MIDODRINE 5 MG TAB PO SCH (09:00)
[2018-05-11] MEDS ORDERED: NICOTINE 21MG/24HR PATCH TRANSDERM SCH (09:00)
[2018-05-11] MEDS: IPRATROPIUM 0.5 MG/2.5 ML NEBU INHALATION SCH ×2 (09:11→12:34)
[2018-05-11] MEDS ORDERED: oxyCODONE-APAP 5-325MG 1 EACH TAB PO PRN (12:21)
[2018-05-11 14:05] VITALS: BP 128/85; PULSE 84; TEMP 97.9
[2018-05-11 14:15] LABS: Basophils # (A) 0.1 k/uL (0-0.2); Basophils % (A) 1 %; Eosinophils % (A) 0 %; HCT 41.1 % (34.0-46.0); HGB 13.1 gm/dL (11.4-16.0); Lymphocytes # (A) 1.9 k/uL (1.0-4.8); Lymphocytes % (A) 20 %; MCH 29.8 pg (25.0-35.0); MCHC 31.8 g/dL (31.0-37.0); MCV 93.6 fL (80.0-100.0); Mean Platelet Volume 8.6; Monocytes # (A) 0.4 k/uL (0-1.0); Monocytes % (A) 5 %; Neutrophils # (A) 6.6 k/uL (1.3-7.7); Neutrophils % (A) 72 %; Platelet Count 190 k/uL (150-450); RBC 4.39 m/uL (3.80-5.40); RDW 13.7 % (11.5-15.5); WBC 9.2 k/uL (3.8-10.6)
[2018-05-11 14:36] LABS: Anion Gap 4 mmol/L; Blood Urea Nitrogen 9 mg/dL (7-17); Calcium 8.8 mg/dL (8.4-10.2); Carbon Dioxide 22 mmol/L (22-30); Chloride 115 mmol/L (98-107); Glucose 116 mg/dL (74-99); Potassium 4.4 mmol/L (3.5-5.1); Sodium 141 mmol/L (137-145)
--- NOTE | 2018-05-11 15:31 | P.CON ---
Consult Note - . Consult date: 05/11/18 Assessment/Plan:: Kassy is a 57-year-old female who presents to [facility] with a chief complaint of exacerbated low back pain. She is a patient at that [facility] immediately treated her mostly for thoracic radiculopathy and intercostal neuralgia. She does have a history of spinal cord stimulant implant had multiple surgeries on her low back. Dr. Hager prescribes her Percocet 10 mg 4 times a day, last office visit urine drug screening showed that she was positive for fentanyl and he discontinued writing the medication. Patient had been without opiates and developed acute on chronic exacerbation prompting her to come to the hospital. VAS today is a 8 out of 10 in severity. She describes a sharp, throbbing, aching pain in her low back. A lot of the pain is located where the stimulator generator is. She is being evaluated by spine surgeon to get it removed as, it's been inactive for 4 years. Otherwise patient has no complaints of bowel or bladder incontinence, no constipation, diarrhea, nausea vomiting. 10 point review of systems is negative except as mentioned in HPI. Physical Examinations : 1-Constitutional : Cooperative , not in acute distress . 2-HEENT : nech ; supple , no Lymphadenopathy , normal thyroid size . eyes : no ptosis , no icterus, no photophobia 3- neurologic : Cranial nerve II to XII intact , no focal neurological deffecit . 4-psychatric : alert , oriented X 3 , appropriate affect , intact judgment and insight . 5-Lymphatic : no Lymphadenopathy . 6- musculoskeltal: Cervical Spine motor stregnth in the deltoid and biceps, normal right side , normal Left side motor stregnth biceps and the wrist extensors normal right side ,normal left side . motor stregnth in the triceps muscle . normal Right side , normal Left side deep tendon reflexes normal at the biceps , normal at Brachioradialis , normal at triceps. Thoracic spine = severe tenderness at the locations of the spinal cord stimulator leads , there is no erythema, no discharg ( Tenderness over T7 to T9 vertebra ) Lumber spine moter stregnth lower extremities ,thigh and legs 5/5 Right side , 5/5 Left side Assessment and plan 1. Intercostal neuralgia 2. Lumbar post laminectomy syndrome 3. Opioid dependence. Plan: 1. I discussed my findings with hospitals. Recommended sending her home on Percocet 10 mg/325 mg twice a day for 5-6 days she can follow up in pain clinic. She is at her spinal coursing later removed to being evaluated for Friday. Otherwise patient does not look in any acute distress and there is no reason for her to require sustained admission at the hospital. Thank you for the consult
[2018-05-11] MEDS ORDERED: HEPARIN SODIUM,PORCINE 5,000 UNIT/ML 1 ML VIAL SQ SCH (16:00)
[2018-05-11] MEDS ORDERED: Mirabegron [Myrbetriq] 25 MG PO SCH (21:00)
--- NOTE | 2018-05-11 23:18 | P.HPIM ---
History of Present Illness H&P Date: 05/11/18 Chief Complaint: Acute opioid withdrawal Patient is a 57-year-old female with known history of fibromyalgia, hypertension, osteoarthritis, Shipman's esophagussurgically removed, chronic back pain and neck pain, history of stroke and TIA, sinus problems, history of migraine headache, spinal cord stimulator placement, problems with balance and history of falls and other multiple medical problems including back surgery/laminectomy came to ER with a complaints of altered mental status and not acting appropriately. Patient has been having off balance and involuntary shaking movements of the hands and legs. Patient was also complaining of lower activity numbness on the right side and tingling sensation. Patient also felt very weak. According to the family patient was taken off her pain medications including Percocet. Patient took her last dose on . Aberrantly patient was found to have fentanyl in her urine drug screen and her family care physician refused to give narcotic pain medications. Patient was brought to the hospital by her family. No complaints of fever or chills. No headache or dizziness. Patient does have nausea.Vomiting. No complains of chest pain or shortness of breath. CT head showed sinusitis. Negative computed tomography scan of the brain. Sinusitis appears new compared to old exam. WBC 12.7 on admission UA negative Patient was given a dose of morphine in the ER and admitted to the hospital for withdrawal symptoms. Review of Systems Constitutional: Patient denies any fever or chills . No generalized weakness or weight loss. Abdomen: Patient denied nausea vomiting and diarrhea and abdominal pain. Cardiovascular: Patient denies any chest pain or short of breath no palp itations. Respiratory: patient denied any cough is from production. No shortness of breath Neurologic: Patient denied any numbness or tingling headache. Musculoskeletal: Complaining of back pain and numbness/tingling over the lower extremities. Skin: Negative Psychiatric: Negative Endocrine: No heat or cold intolerance. No recent weight gain. Genitourinary: No dysuria or hematuria. All other 14 point ROS negative except the above Past Medical History Past Medical History: Blood Disorder, Heart Failure, COPD, CVA/TIA, Fibromyalgia, GERD/Reflux, Hypertension, Liver Disease, Osteoarthritis (OA) Additional Past Medical History / Comment(s): Past SHIPMAN'S ESOPHAGUS- surgically removed, past hiatal hernia, chronic back and neck pain, stroke 02/2015, TIA 06/2016 with L arm weakness, chronic bronchitis, sinus problems, hx migraines, hx tooth abscess. Pt has Spinal Cord Stimulator. PROBLEMS WITH BALANCE AND HX OF FALLS. Anemia. History of Any Multi-Drug Resistant Organisms: None Reported Past Surgical History: Appendectomy, Back Surgery, Bariatric Surgery, Section, Cholecystectomy, Hernia Repair, Joint Replacement, Orthopedic Surgery, Tubal Ligation Additional Past Surgical History / Comment(s): BACK SURGERY X2, NECK SURGERYX2, including a fusion, had SPINAL CORD STIMULATOR implanted in back (tens unit), cervical fusion, LAP GABRIEL EN Y (11/06/15), EGDs and EGD with dilation and removal of a staple that had migrated, colonoscopy/benign polypectomy, bilateral knee injections. Open heart surgery with valve replacement, HAD 13 TEETH EXTRACTED. Past Anesthesia/Blood Transfusion Reactions: Motion Sickness, Postoperative Nausea & Vomiting (PONV) Additional Past Anesthesia/Blood Transfusion Reaction / Comment(s): SLOW TO WAKE UP FROM ANESTHESIA. Past Psychological History: Depression Additional Psychological History / Comment(s): . Smoking Status: Current every day smoker Past Alcohol Use History: None Reported Additional Past Alcohol Use History / Comment(s): Has been smoking approx 28 years, 1 PPD. Past Drug Use History: None Reported - Past Family History Sister(s) Family Medical History: Myocardial Infarction (NV) Additional Family Medical History / Comment(s): at age 43 of NV. Mother Family Medical History: Myocardial Infarction (NV) Additional Family Medical History / Comment(s): Mother at age 62 of NV. Father Family Medical History: Myocardial Infarction (NV) Additional Family Medical History / Comment(s): Father in his 40's of a NV. Medications and Allergies Home Medications Medication Instructions Recorded Confirmed Type Albuterol Nebulized [Ventolin 2.5 mg INHALATION RT-TID 07/07/13 05/10/18 History Nebulized] Venlafaxine HCl [Effexor XR] 150 mg PO BID 01/12/15 05/10/18 History Cholecalciferol (Vitamin D3) 5,000 unit PO DAILY 02/13/17 05/10/18 History [Vitamin D3] Pantoprazole [Protonix] 40 mg PO BID 09/03/17 05/10/18 History Albuterol Sulfate [Proair Hfa] 1 - 2 puff INHALATION RT-Q6H PRN 11/17/17 05/10/18 History Budesonide/Formoterol Fumarate 2 puff INHALATION RT-BID 11/17/17 05/10/18 History [Symbicort 160-4.5 Mcg Inhaler] Tiotropium [place] [Spiriva] 1 cap INHALATION RT-DAILY 11/17/17 05/10/18 History Alive Ultra Potency 120 mg PO DAILY 12/10/17 05/10/18 History Acetaminophen/Diphenhydramine 1 tab PO HS 12/30/17 05/10/18 History [Tylenol PM 500-25mg] Calcium Carb/Vitamin D3/Vit K2 1 each PO DAILY 02/19/18 05/10/18 History [Calcium Plus Menaq7 Adult Tab] Multivitamin/Iron/Folic Acid 1 each PO DAILY 02/19/18 05/10/18 History [Centrum Adults Tablet] Gabapentin [Neurontin] 600 mg PO TID 05/10/18 05/10/18 History Ibuprofen [Motrin Ib] 200 mg PO QID PRN 05/10/18 05/10/18 History Methocarbamol [Robaxin-750] 750 mg PO TID 05/10/18 05/10/18 History Midodrine HCl [ProAmantine] 2.5 mg PO BID 05/10/18 05/10/18 History Mirabegron [Myrbetriq] 25 mg PO HS 05/10/18 05/10/18 History Vitamin E (Dl,Tocopheryl Acet) 400 unit PO DAILY 05/10/18 05/10/18 History [Vitamin E] Methocarbamol [Robaxin] 750 mg PO TID 3 Days #9 tab 05/11/18 Rx oxyCODONE HCL/ACETAMINOPHEN 1 tab PO Q12HR PRN 6 Days #12 tab 05/11/18 Rx [Percocet 5-325 mg] Allergies Allergy/AdvReac Type Severity Reaction Status Date / Time Mushroom AdvReac Nausea & Verified 05/10/18 21:04 Vomiting Physical Exam Vitals: Vital Signs Temp Pulse Pulse Resp BP BP Pulse Ox 05/11/18 09:12 72 05/11/18 08:00 97.3 F L 76 18 131/66 100 05/11/18 04:15 97.8 F 73 18 145/86 97 05/11/18 04:00 97.4 F L 05/11/18 03:30 70 16 132/96 100 05/11/18 03:10 68 15 140/93 97 05/11/18 03:06 67 05/11/18 02:53 68 05/11/18 02:50 16 146/77 98 05/11/18 02:10 64 140/96 99 05/11/18 01:50 70 146/96 100 05/11/18 01:32 14 05/11/18 01:30 66 125/82 99 05/11/18 01:00 67 116/88 99 05/11/18 00:41 66 125/89 99 05/11/18 00:40 67 113/94 92 L 05/11/18 00:30 66 14 113/94 99 05/11/18 00:20 70 13 137/103 90 L 05/10/18 23:30 81 15 134/94 98 05/10/18 23:10 81 13 143/99 96 05/10/18 23:09 81 13 150/98 97 05/10/18 20:19 97.7 F 91 18 153/96 96 Intake and Output 05/10/18 05/11/18 05/11/18 22:59 06:59 14:59 Intake Total 120 Balance 120 Intake: Oral 120 Other: Weight 57.606 kg 55 kg PHYSICAL EXAMINATION: Patient is lying in the bed comfortably, no acute distress, awake alert and appears drowsy and lethargic... HEENT: Normocephalic. Neck is supple. Pupils reactive. Nostrils clear. Oral cavity is moist. Ears reveal no drainage. Neck reveals no JVD, carotid bruits, or thyromegaly. CHEST EXAMINATION: Trachea is central. Symmetrical expansion. Lung garcia clear to auscultation and percussion. CARDIAC: Normal S1, S2 with no gallops. No murmurs ABDOMEN: Soft. Bowel sounds normal. No organomegaly. No abdominal bruits. Extremities: reveal no edema. No clubbing or cyanosis Neurologically awake, alert, oriented x3 with well-coordinated movements. No focal deficits noted Skin: No rash or skin lesions. Psychiatric: Coperative. Nonsuicidal Musculoskeletal: No joint swelling or deformity. Normal range of motion. Cervical and lumbar spinal tenderness. Lumbar spinal stimulator in place. Results CBC & Chem 7: 05/11/18 13:48 05/11/18 13:48 Labs: Abnormal Lab Results - Last 24 Hours (Table) 05/10/18 05/10/18 Range/Units 20:03 20:03 WBC 12.7 H (3.8-10.6) k/uL Neutrophils # 8.9 H (1.3-7.7) k/uL Sodium 136 L (137-145) mmol/L Chloride 108 H (98-107) mmol/L Carbon Dioxide 18 L (22-30) mmol/L Glucose 127 H (74-99) mg/dL Phosphorus 5.0 H (2.5-4.5) mg/dL AST 43 H (14-36) U/L Thrombosis Risk Factor Assmnt - DVT/VTE Prophylaxis DVT/VTE Prophylaxis: Pharmacologic Prophylaxis ordered - Choose All That Apply Any of the Below Risk Factors Present?: Yes Each Factor Represents 1 point: Age 41-60 years Thrombosis Risk Factor Assessment Total Risk Factor Score: 1 Thrombosis Risk Factor Assessment Level: Low Risk Assessment and Plan Assessment: Acute opiate withdrawals History of laminectomy and lumbar disc disease COPD History of CVA/TIA with left arm mild weakness Chronic back pain and neck pain Fibromyalgia Isela GERD line hypertension Past Shipman's esophagussurgically removed History of falls and balance issues History of valve replacement. Depression Nicotine addiction with current every day smoker DVT prophylaxis with heparin subcu Plan: Patient will be continued on Robaxin, Motrin and Percocet 5 for pain management. Continue with home medications and follow closely. Pain service consult. Further recommendations based on the clinical course. Counseled patient and on her daughter at bedside in detail. Prognosis is guarded.. Time with Patient: Greater than 30
--- NOTE | 2018-05-11 23:19 | P.DS ---
Providers Date of admission: 05/11/18 00:17 Expected date of discharge: 05/11/18 Attending physician: Mirza Lara Primary care physician: Stated None Hospital Course: Acute opiate withdrawals Post laminectomy syndrome History of laminectomy and lumbar disc disease COPD History of CVA/TIA with left arm mild weakness Chronic back pain and neck pain Fibromyalgia Isela GERD line hypertension Past Hernandez's esophagussurgically removed History of falls and balance issues History of valve replacement. Depression Nicotine addiction with current every day smoker DVT prophylaxis with heparin subcu Hospital course Patient is a 57-year-old female with known history of fibromyalgia, hypertension, osteoarthritis, Hernandez's esophagussurgically removed, chronic back pain and neck pain, history of stroke and TIA, sinus problems, history of migraine headache, spinal cord stimulator placement, problems with balance and history of falls and other multiple medical problems including back surgery/laminectomy came to ER with a complaints of altered mental status and not acting appropriately. Patient has been having off balance and involuntary shaking movements of the hands and legs. Patient was also complaining of lower activity numbness on the right side and tingling sensation. Patient also felt very weak. According to the family patient was taken off her pain medications including Percocet. Patient took her last dose on . Aberrantly patient was found to have fentanyl in her urine drug screen and her family care physician refused to give narcotic pain medications. Patient was brought to the hospital by her family. No complaints of fever or chills. No headache or dizziness. Patient does have nausea.Vomiting. No complains of chest pain or shortness of breath. CT head showed sinusitis. Negative computed tomography scan of the brain. Sinusitis appears new compared to old exam. WBC 12.7 on admission UA negative Patient was given a dose of morphine in the ER and admitted to the hospital for withdrawal symptoms. Patient was continued on Robaxin, Motrin and Percocet 5 for pain management. Continue with home medications and follow closely. Pain service consult. Further recommendations based on the clinical course. Counseled patient and on her daughter at bedside in detail. She was seen by pain management service. Recommends Percocet 5 twice daily and follow-up in the clinic. Patient was given prescription for 12 tablets of Percocet 5. Patient was seen by PT OT and is able to ambulate without support. Patient was discharged home with her daughter. Discharge physical examination was done and vitals reviewed... Patient Condition at Discharge: Stable Plan - Discharge Summary New Discharge Prescriptions: New oxyCODONE HCL/ACETAMINOPHEN [Percocet 5-325 mg] 1 tab PO Q12HR PRN 6 Days #12 tab PRN Reason: Pain Methocarbamol [Robaxin] 750 mg PO TID 3 Days #9 tab Continue Albuterol Nebulized [Ventolin Nebulized] 2.5 mg INHALATION RT-TID Venlafaxine HCl [Effexor XR] 150 mg PO BID Cholecalciferol (Vitamin D3) [Vitamin D3] 5,000 unit PO DAILY Pantoprazole [Protonix] 40 mg PO BID Tiotropium [place] [Spiriva] 1 cap INHALATION RT-DAILY Albuterol Sulfate [Proair Hfa] 1 - 2 puff INHALATION RT-Q6H PRN PRN Reason: Respiratory Distress Budesonide/Formoterol Fumarate [Symbicort 160-4.5 Mcg Inhaler] 2 puff INHALATION RT-BID Alive Ultra Potency 120 mg PO DAILY Acetaminophen/Diphenhydramine [Tylenol PM 500-25mg] 1 tab PO HS Calcium Carb/Vitamin D3/Vit K2 [Calcium Plus Menaq7 Adult Tab] 1 each PO DAILY Multivitamin/Iron/Folic Acid [Centrum Adults Tablet] 1 each PO DAILY Mirabegron [Myrbetriq] 25 mg PO HS Ibuprofen [Motrin Ib] 200 mg PO QID PRN PRN Reason: Pain Gabapentin [Neurontin] 600 mg PO TID Midodrine HCl [ProAmantine] 2.5 mg PO BID Vitamin E (Dl,Tocopheryl Acet) [Vitamin E] 400 unit PO DAILY Methocarbamol [Robaxin-750] 750 mg PO TID Discharge Medication List Albuterol Nebulized [Ventolin Nebulized] 2.5 mg INHALATION RT-TID 07/07/13 [History] Venlafaxine HCl [Effexor XR] 150 mg PO BID 01/12/15 [History] Cholecalciferol (Vitamin D3) [Vitamin D3] 5,000 unit PO DAILY 02/13/17 [History] Pantoprazole [Protonix] 40 mg PO BID 09/03/17 [History] Albuterol Sulfate [Proair Hfa] 1 - 2 puff INHALATION RT-Q6H PRN 11/17/17 [History] Budesonide/Formoterol Fumarate [Symbicort 160-4.5 Mcg Inhaler] 2 puff INHALATION RT-BID 11/17/17 [History] Tiotropium [place] [Spiriva] 1 cap INHALATION RT-DAILY 11/17/17 [History] Alive Ultra Potency 120 mg PO DAILY 12/10/17 [History] Acetaminophen/Diphenhydramine [Tylenol PM 500-25mg] 1 tab PO HS 12/30/17 [History] Calcium Carb/Vitamin D3/Vit K2 [Calcium Plus Menaq7 Adult Tab] 1 each PO DAILY 02/19/18 [History] Multivitamin/Iron/Folic Acid [Centrum Adults Tablet] 1 each PO DAILY 02/19/18 [History] Gabapentin [Neurontin] 600 mg PO TID 05/10/18 [History] Ibuprofen [Motrin Ib] 200 mg PO QID PRN 05/10/18 [History] Methocarbamol [Robaxin-750] 750 mg PO TID 05/10/18 [History] Midodrine HCl [ProAmantine] 2.5 mg PO BID 05/10/18 [History] Mirabegron [Myrbetriq] 25 mg PO HS 05/10/18 [History] Vitamin E (Dl,Tocopheryl Acet) [Vitamin E] 400 unit PO DAILY 05/10/18 [History] Methocarbamol [Robaxin] 750 mg PO TID 3 Days #9 tab 05/11/18 [Rx] oxyCODONE HCL/ACETAMINOPHEN [Percocet 5-325 mg] 1 tab PO Q12HR PRN 6 Days #12 tab 05/11/18 [Rx] Follow up Appointment(s)/Referral(s): Mitch Daniels MD [REFERRING] - 05/19/18 1:00 pm (Friday) None,Stated [Primary Care Provider] - 1-2 days (Please find and schedule an appointment with a primary care physician) Discharge Disposition: HOME SELF-CARE
[2018-05-12] MEDS ORDERED: MULTIVITAMINS, THERA 1 EACH TAB PO SCH (12:00)
== END 2018-05-11 16:28 | disposition home or self-care (01) | DRG 897 ==
LOC: EC 20:12 → 3SCARD 05-11 00:17
PROVIDERS: ADMIT Internal Medicine; ATTEND Internal Medicine
DX: F11.23 Opioid dependence with withdrawal (principal); M54.14 Radiculopathy, thoracic region; E86.0 Dehydration; F17.210 Nicotine dependence, cigarettes, uncomplicated; F32.9 Major depressive disorder, single episode, unspecified; F44.9 Dissociative and conversion disorder, unspecified; G89.29 Other chronic pain; I50.9 Heart failure, unspecified; I11.0 Hypertensive heart disease with heart failure; J44.9 Chronic obstructive pulmonary disease, unspecified; K21.9 Gastro-esophageal reflux disease without esophagitis; K22.70 Barrett's esophagus without dysplasia; M79.7 Fibromyalgia; M96.1 Postlaminectomy syndrome, not elsewhere classified; Z79.51 Long term (current) use of inhaled steroids; Z79.899 Other long term (current) drug therapy; Z82.49 Family history of ischemic heart disease and other diseases of the circulatory system; Z86.73 Personal history of transient ischemic attack (TIA), and cerebral infarction without residual deficits; Z91.81 History of falling; Z95.2 Presence of prosthetic heart valve; I69.334 Monoplegia of upper limb following cerebral infarction affecting left non-dominant side; M51.36 Other intervertebral disc degeneration, lumbar region; G58.8 Other specified mononeuropathies; Z98.84 Bariatric surgery status; Z98.1 Arthrodesis status; Z86.010 Personal history of colon polyps; M19.90 Unspecified osteoarthritis, unspecified site; K08.409 Partial loss of teeth, unspecified cause, unspecified class
CPT/HCPCS: 36415; 70450; 80048; 80053; 81003; 83605; 83735; 84100; 84484; 85025; 85610; 85730; 93005; 96361; 96374; 96375; 99285

== ENCOUNTER → 2018-07-15 | Outpatient (CLI) | payer MEDICARE ==
--- NOTE | 2018-07-15 19:00 | P.PN ---
Progress Note - Text Progress Note Date: 07/15/18 Patient re-scheduled
== END | disposition home or self-care (01) ==
LOC: BARWHC3 16:16
PROVIDERS: ATTEND Surgery Plastic and Reconstructive Surgery
DX: Z53.9 Procedure and treatment not carried out, unspecified reason (principal)

== ENCOUNTER → 2018-07-29 | Outpatient (CLI) | payer MEDICARE ==
--- NOTE | 2018-07-29 16:24 | P.PN ---
Subjective Progress Note Date: 07/29/18 DATE OF SERVICE: 07/29/2018 CHIEF COMPLAINT: Follow-up gastric bypass. HISTORY OF PRESENT ILLNESS: Kassy Lopez is a 55-year-old female status post gastric bypass on 11/06/2015. She is 3 years out. She has severe bruising. She has lost too much weight. She reports new intermittent abdominal pain with eating. She presents for follow-up. Her ideal body weight for a 5' 6" frame is 154 pound. Her highest weight was 278 pounds. Today she comes in weighing 116 pounds from 133 pounds, 5 months ago. She has lost 17 pounds in 6 months. She has lost 162 pounds. Body mass index is reduced from 45.0 down to 18.7. Her percent excess weight loss is 131 %. PAST MEDICAL HISTORY: 1. Hernandez esophagus. 2. Gastroesophageal reflux disease, now resolved. 3. Osteoarthritis, now resolved. 4. Diabetes type 2 with gastroparesis, now resolved. 5. Depression. 6. Hypertension, now resolved. 7. Chronic obstructive pulmonary disease, now improved. 8. History of congestive heart failure. 9. Morbid obesity, BMI 45.0, initial PAST SURGICAL HISTORY: 1. Back surgery x3 including fusion. 2. TENS unit infusion. 3. Neck fusion. 4. Right knee injections. 5. Colonoscopy. 6. Upper endoscopy. 7. Appendectomy. 8. section. 9. Cholecystectomy. 10. Tubal ligation. 11. Status post gastric bypass. 12. Cardiac catheterization. 13. Valvular replacement, 07/24/2016 MEDICATIONS: Home Medications Medication Instructions Recorded Confirmed Albuterol Nebulized [Ventolin 2.5 mg INHALATION RT-TID 07/07/13 08/19/18 Nebulized] Venlafaxine HCl [Effexor XR] 150 mg PO BID 01/12/15 08/19/18 Cholecalciferol (Vitamin D3) 5,000 unit PO DAILY 02/13/17 08/19/18 [Vitamin D3] Albuterol Sulfate [Proair Hfa] 1 - 2 puff INHALATION RT-Q6H PRN 11/17/17 08/19/18 Budesonide/Formoterol Fumarate 2 puff INHALATION RT-BID 11/17/17 08/19/18 [Symbicort 160-4.5 Mcg Inhaler] Tiotropium [place] [Spiriva] 1 cap INHALATION RT-DAILY 11/17/17 08/19/18 Alive Ultra Potency 120 mg PO DAILY 12/10/17 08/19/18 Acetaminophen/Diphenhydramine 2 tab PO HS 12/30/17 08/19/18 [Tylenol PM 500-25mg] Methocarbamol [Robaxin-750] 750 mg PO TID 05/10/18 08/19/18 Midodrine HCl [ProAmantine] 2.5 mg PO BID 05/10/18 08/19/18 Vitamin E (Dl,Tocopheryl Acet) 400 unit PO DAILY 05/10/18 08/19/18 [Vitamin E] Acetaminophen [Tylenol Arthritis] 1,300 mg PO BID 07/29/18 08/19/18 Buprenorphine HCl/Naloxone HCl 1 film SL TID 07/29/18 08/19/18 [Suboxone 8 mg-2 mg Sl Film] Calcium Carb/Vitamin D3/Vit K1 1 tab PO DAILY 08/19/18 08/19/18 [Citracal Soft Chew] Gabapentin [Neurontin] 300 mg PO TID 08/19/18 08/19/18 Multivitamin/Iron/Folic Acid 1 tab PO DAILY 08/19/18 08/19/18 [Centrum Adults Tablet] Previous Rx's Medication Instructions Recorded Pantoprazole [Protonix] 40 mg PO BID #60 tab 08/21/18 Sucralfate [Carafate] 1 gm PO TID #90 tablet 08/21/18 Hydrocodone/Acetaminophen [[place] 1 tab PO Q4HR PRN 3 Days #18 tab 08/26/18 5-325] Polyethylene Glycol 3350 [Miralax] 17 gm PO DAILY #30 packet 08/26/18 ALLERGIES: MUSHROOM. FAMILY HISTORY: Denies any Crohn's disease or ulcerative colitis. Denies any lupus within her family. SOCIAL HISTORY: Active tobacco user over 25 years, 1 pack per day and now in remission. REVIEW OF SYSTEMS: CONSTITUTIONAL: Her ideal body weight for a 5' 6" frame is 154 pound. Her highest weight was 278 pounds. Body mass index is reduced from 45.0. ENDOCRINE: Resolved diabetes type 2. No hypothyroidism. RESPIRATORY: Resolved obstructive sleep apnea. No asthma. CARDIOVASCULAR: History of valvular replacement for congestive heart failure. GASTROINTESTINAL: No reports of dumping syndrome. Gastroesophageal reflux disease is completely resolved. HEENT: She had removal of her mandibular tooth abscess. She still has poor dentition and requires extraction of all her teeth. Future dentures are pending at this time. MUSCULOSKELETAL: Reports osteoarthritis of the back including hips. NEURO: No reports of recent stroke or seizure disorder. History of chronic pain. HEMATOLOGIC: No recent DVTs or pulmonary embolisms. PSYCH: History chronic pain including depression. Slight to moderate reduction in her antidepressant medications. PHYSICAL EXAM: VITAL SIGNS: 5 foot 6, 116 pounds. Body mass is 18.7 Vital Signs Temp 98.3 F 07/29/18 15:21 Pulse 88 07/29/18 15:21 Resp BP 126/88 07/29/18 15:21 Pulse Ox ABDOMEN: Soft, nontender, nondistended. MUSCULOSKELETAL: No clubbing, cyanosis, or edema. GENERAL: Well-developed female in no acute distress. CARDIOVASCULAR: Regular rate and rhythm, 2+ distal pulses. HEENT: Head atraumatic, normocephalic. No nasal drainage. Hears is conversational speech. CHEST: Nonlabored respirations. Equal bilateral excursions. NECK: Supple without lymphadenopathy. NEURO: No focal or lateralizing signs. Cranial nerves II through XII grossly intact. PSYCH: Appropriate affect. Alert and oriented to person, place and time. SKIN: Well perfused. Good skin turgor. STUDIES: CT of the abdomen and pelvis reviewed demonstrating no mesenteric swirl or signs of internal hernia. No signs of small bowel obstruction. REPORTS: CT reviewed without inflammatory changes. LABS: Total protein is low. Albumin is normal. PTH elevated. ASSESSMENT: 1. Morbid obesity and excess calories. 2. Body mass index reduced from 45.0 down to 18.7 3. Status post gastric bypass. 4. Restless leg syndrome. 5. Obstructive sleep apnea, resolved. 6. Secondary hyperparathyroidism. 7. Thiamine deficiency, resolved. 8. Hypertriglyceridemia. 9. Prior history of active tobacco use, now in remission. 10. Byl-bkevjla-psoydwctj type 2 diabetes, resolved. 11. Diabetic gastroparesis. 12. History of gout. 13. History of Hernandez's esophagus. 14. Chronic obstructive pulmonary disease. 15. Vitamin D deficiency, resolved 16. Hyperlipidemia. 17. Congestive heart failure from hypertension. 18. Iron deficiency anemia. 19. Vitamin A deficiency. 20. Hypertensive heart disease, resolved. 21. Status post valvular replacement. 22. Secondary hyperparathyroidism PLAN: 1. Recommend upper scope for epigastric abdominal pain for risk of gastrojejunal ulcer and stricture 2. Recommend [employer] 3. Recommen repeat bariatric labs. 4. Medications reviewed with discontinue of NSAIDs advised. Objective - Vital Signs Vital signs: Vital Signs Temp 98.3 F 07/29/18 15:21 Pulse 88 07/29/18 15:21 Resp BP 126/88 07/29/18 15:21 Pulse Ox Intake & Output 07/28/18 07/29/18 07/29/18 18:59 06:59 18:59 Weight 52.617 kg
== END | disposition home or self-care (01) ==
CPT/HCPCS: 99211

== ENCOUNTER → 2018-07-31 | Outpatient (CLI) | payer MEDICARE ==
[2018-07-31 11:54] LABS: INR 1.1 (<1.2); Partial Thromboplastin Time 26.3 sec (22.0-30.0); Prothrombin Time 11.3 sec (9.0-12.0)
[2018-07-31 12:00] LABS: HCT 44.2 % (34.0-46.0); HGB 14.1 gm/dL (11.4-16.0); MCH 28.8 pg (25.0-35.0); MCHC 31.9 g/dL (31.0-37.0); MCV 90.5 fL (80.0-100.0); Mean Platelet Volume 7.8; Platelet Count 183 k/uL (150-450); RBC 4.88 m/uL (3.80-5.40); RDW 14.4 % (11.5-15.5); WBC 5.5 k/uL (3.8-10.6)
[2018-07-31 16:07] LABS: Albumin 4.1 g/dL (3.80-4.90); Albumin/Globulin Ratio 2.16 (1.60-3.17); Anion Gap 6.3 mmol/L (4.00-12.00); Calcium 8.9 mg/dL (8.7-10.3); Carbon Dioxide 24.7 mmol/L (21.6-31.8); Globulin 1.9 g/dL (1.6-3.3); LDL Cholesterol,Calculated 58.8 mg/dL (0.0-131.0); Magnesium 1.7 mg/dL (1.5-2.4); Phosphorus 4.7 mg/dL (2.4-5.1); Potassium 4.1 mmol/L (3.5-5.5); Total Bilirubin 0.5 mg/dL (0.3-1.2); VLDL Calculation 16.2 mg/dL (5.00-40.00)
[2018-07-31 16:11] LABS: Iron Saturation 33.94 (12.00-45.00)
[2018-07-31 16:20] LABS: Vitamin D 25 Hydroxy 92.1 ng/mL (30.0-100.0)
[2018-07-31 16:24] LABS: Folate, Serum 23.8 ng/mL
[2018-07-31 16:37] LABS: Parathyroid Hormone Intact 94.6 pg/mL (14.0-72.0)
[2018-07-31 17:56] LABS: Hemoglobin A1C 5.4 % (4.0-6.0)
[2018-08-03 09:37] LABS: Vitamin A 56 ug/dL (38-106)
[2018-08-03 09:42] LABS: Vit B1(Thiamine) 74 ug/L (38-122)
[2018-08-03 15:57] LABS: Zinc, Serum 62 ug/dL (60-130)
== END | disposition home or self-care (01) ==
LOC: LABWHC1 10:34
PROVIDERS: ATTEND Surgery Plastic and Reconstructive Surgery
DX: E66.01 Morbid (severe) obesity due to excess calories (principal); E21.1 Secondary hyperparathyroidism, not elsewhere classified; E89.1 Postprocedural hypoinsulinemia; D50.9 Iron deficiency anemia, unspecified; K90.9 Intestinal malabsorption, unspecified; E55.9 Vitamin D deficiency, unspecified; K76.9 Liver disease, unspecified; N19 Unspecified kidney failure; K50.90 Crohn's disease, unspecified, without complications
CPT/HCPCS: 36415; 80053; 80061; 82306; 82525; 82607; 82728; 82746; 83036; 83540; 83550; 83735; 83970; 84100; 84134; 84255; 84425; 84443; 84590; 84630; 85027; 85610; 85730

== ENCOUNTER 2018-08-18 23:40 | Inpatient (IN) | payer MEDICARE, OTHER ==
[2018-08-19] MEDS ORDERED: diphenhydrAMINE 50 MG/ML 1 ML VIAL ONE ×2 (00:49)
[2018-08-19] MEDS ORDERED: MORPHINE SULFATE 4 MG/ML SYRINGE ONE (00:49)
[2018-08-19] MEDS ORDERED: SODIUM CHLORIDE 0.9% 1,000 ML BAG ONE ×2 (00:49)
[2018-08-19] MEDS ORDERED: ONDANSETRON 4 MG/2 ML VIAL ONE ×2 (00:49)
[2018-08-19] MEDS ORDERED: PANTOPRAZOLE 40 MG/10 ML VIAL ONE (00:49)
[2018-08-19] MEDS ORDERED: METOCLOPRAMIDE 5 MG/ML 2 ML VIAL ONE (00:49)
[2018-08-19 06:09] LABS: Prothrombin Time 10.4 sec (9.0-12.0)
[2018-08-19 06:13] LABS: Basophils # (A) 0.1 k/uL (0-0.2); Basophils % (A) 0 %; Eosinophils # (A) 0.1 k/uL (0-0.7); Eosinophils % (A) 0 %; HCT 51.8 % (34.0-46.0); HGB 16.8 gm/dL (11.4-16.0); Lymphocytes # (A) 1.4 k/uL (1.0-4.8); Lymphocytes % (A) 6 %; MCH 29.3 pg (25.0-35.0); MCHC 32.4 g/dL (31.0-37.0); MCV 90.6 fL (80.0-100.0); Mean Platelet Volume 7.4; Monocytes # (A) 0.7 k/uL (0-1.0); Monocytes % (A) 3 %; Neutrophils # (A) 20.1 k/uL (1.3-7.7); Neutrophils % (A) 90 %; RBC 5.72 m/uL (3.80-5.40); RDW 14.2 % (11.5-15.5); WBC 22.4 k/uL (3.8-10.6)
[2018-08-19 06:16] LABS: Platelet Count 378 k/uL (150-450)
[2018-08-19 06:20] LABS: ALT 62 U/L (9-52); AST 35 U/L (14-36); African American GFR (CKD) >90 (>60 ml/min/1.73 sqM); Albumin 4.5 g/dL (3.5-5.0); Alkaline Phosphatase 117 U/L (38-126); Anion Gap 14 mmol/L; Blood Urea Nitrogen 28 mg/dL (7-17); Calcium 10.2 mg/dL (8.4-10.2); Carbon Dioxide 20 mmol/L (22-30); Chloride 104 mmol/L (98-107); Glucose 202 mg/dL (74-99); Lipase 67 U/L (23-300); Magnesium 1.8 mg/dL (1.6-2.3); Potassium 4.3 mmol/L (3.5-5.1); Sodium 138 mmol/L (137-145); Total Bilirubin 0.6 mg/dL (0.2-1.3); Total Protein 7.5 g/dL (6.3-8.2)
[2018-08-19 08:25] LABS: Glucose,Whole Blood 134 mg/dL (75-99)
[2018-08-19] MEDS ORDERED: NALOXONE 0.4 MG/ML 1 ML VIAL IV PRN (08:57)
[2018-08-19] MEDS ORDERED: ONDANSETRON 4 MG/2 ML VIAL IVP PRN (08:58)
[2018-08-19 11:09] LABS: ALT 48 U/L (9-52); AST 27 U/L (14-36); African American GFR (CKD) >90 (>60 ml/min/1.73 sqM); Alkaline Phosphatase 88 U/L (38-126); Anion Gap 7 mmol/L; Blood Urea Nitrogen 34 mg/dL (7-17); Calcium 9.5 mg/dL (8.4-10.2); Carbon Dioxide 23 mmol/L (22-30); Chloride 109 mmol/L (98-107); Glucose 140 mg/dL (74-99); Magnesium 1.7 mg/dL (1.6-2.3); Potassium 4.5 mmol/L (3.5-5.1); Sodium 139 mmol/L (137-145); Total Bilirubin 0.5 mg/dL (0.2-1.3); Total Protein 6.5 g/dL (6.3-8.2)
[2018-08-19] MEDS: MORPHINE SULFATE 4 MG/ML SYRINGE IVP PRN ×3 (11:18→21:38)
[2018-08-19 11:47] LABS: Basophils % (A) 0 %; Eosinophils % (A) 0 %; HCT 43.7 % (34.0-46.0); HGB 14.3 gm/dL (11.4-16.0); Lymphocytes # (A) 1.5 k/uL (1.0-4.8); Lymphocytes % (A) 6 %; MCH 29.3 pg (25.0-35.0); MCHC 32.6 g/dL (31.0-37.0); MCV 89.8 fL (80.0-100.0); Mean Platelet Volume 8.1; Monocytes # (A) 1.4 k/uL (0-1.0); Monocytes % (A) 5 %; Neutrophils # (A) 22.7 k/uL (1.3-7.7); Neutrophils % (A) 88 %; Platelet Count 295 k/uL (150-450); RBC 4.87 m/uL (3.80-5.40); RDW 15.2 % (11.5-15.5); WBC 25.7 k/uL (3.8-10.6)
[2018-08-19] MEDS ORDERED: SODIUM CHLORIDE 0.9% 1,000 ML IV ONE ×2 (13:58→13:59)
--- NOTE | 2018-08-19 14:25 | P.PN ---
Progress Note - Text Progress Note Date: 08/19/18 Please see full dictated consult. Patient well-known to me as a bariatric patient. Patient was advised to undergo upper endoscopy over 6 months ago however declined. Now she presents with history of hematemesis. Likely source of bleed is from gastrojejunal ulcer with history of cardiac disease. Patient also presents with moderate weight loss unintentional. Recommend bariatric dietitian for weight gain. Close follow-up as outpatient also advised. We'll proceed with upper endoscopy tomorrow.
[2018-08-19] MEDS ORDERED: Magnesium Replacement Protocol 1 EACH MISC MISCELLANE PRN (14:45)
--- NOTE | 2018-08-19 14:46 | P.GSCN ---
<Christine Centeno A - Last Filed: 08/19/18 14:40> History of Present Illness Consult date: 08/19/18 Reason for Consult: Upper GI bleed Requesting physician: Zeina Logan History of present illness: CHIEF COMPLAINT: Abdominal pain, vomiting blood HISTORY OF PRESENT ILLNESS: 58-year-old female with a history of gastric bypass performed in 2016 who presented to emergency room secondary to abdominal pain, nausea, and, vomiting blood. Patient reports she was feeling well until about 2200 last night when she became vomiting dark coffee ground emesis. Patient reports epigastric pain. She felt feverish but did not take her temperature. She continued vomiting in the ER but has not had further episodes since being admitted. She reports bowel movement yesterday. Normal in characteristics. Patient denies hematochezia or melena. Patient reports continued unintentional weight loss over the past several months. Dietitian currently at the bedside as well. Dr. Fleming recommended EGD in February 2018 but has declined to have procedure performed at that time. Patient reports taking Tylenol for pain. She denies use of naproxen, ibuprofen, or aspirin. PAST MEDICAL HISTORY: See list. PAST SURGICAL HISTORY: See list. MEDICATIONS: See list. ALLERGIES: See list. SOCIAL HISTORY: Patient denies illicit drug use. REVIEW OF SYSTEMS: CONSTITUTIONAL: Patient reports feeling feverish at home. HEENT: Denies blurred vision, vision changes, or eye pain. Denies hemoptysis ENDOCRINE: Denies heat or cold intolerance. CARDIOVASCULAR: Denies chest pain or pressure. RESPIRATORY: No shortness of breath. GASTROINTESTINAL: Reports epigastric pain. Reports hematemesis. Denies diarrhea or constipation. NEURO: Denies history of seizures. PSYCH: No depression or suicidal ideation HEMATOLOGIC: Denies bleeding disorders. LYMPHATIC: The patient denies any lumps and bumps around the neck. GENITOURINARY: Denies any blood in urine or increased urinary frequency. MUSCULOSKELETAL: Denies myalgias. Denies joint swelling. Denies decreased range of motion beyond patients baseline. SKIN: Denies pruitis. Denies rash. PHYSICAL EXAM: VITAL SIGNS: Currently stable. Tachycardic. GENERAL: Well-developed in no acute distress. Thin. HEENT: No sclera icterus. Extraocular movements grossly intact. Dry buccal mucosa with evidence of dried blood around lips. Head is atraumatic, normocephalic. Hears conversational speech. No nasal drainage. NECK: Supple without lymphadenopathy. CHEST: Non-labored respirations and equal bilateral excursions. CARDIOVASCULAR: Regular rate with regular rhythm. Palpable 2+ radial pulses. ABDOMEN: Soft. Nondistended. Tenderness upon palpation of epigastric region. Positive bowel sounds. MUSCULOSKELETAL: No clubbing, cyanosis or edema. NEUROLOGIC: No focal or lateralizing signs. Cranial nerves II through XII grossly intact. PSYCH: Appropriate affect. Alert and oriented to person, place and time. SKIN: Well perfused. Good skin turgor. LABORATORY DATA: Laboratory data upon admission reveals white count 22.4. Hemoglobin 16.8. Potassium 4.3. BUN 28. Creatinine 0.72. Magnesium 1.8. AST 35. ALT 62. Repeat lab work this morning reveals white count 25.7. Hemoglobin 14.3. Potassium 4.5. BUN 34. Creatinine 0.64. Magnesium 1.7. AST 27. ALT 48. ASSESSMENT: 1. Hematemesis with epigastric pain, suspect gastrojejunal ulcer 2. Unintentional weight loss 3. History of gastric bypass, October 2015 4. Leukocytosis 5. Mildly elevated liver enzymes, likely secondary to daily acetaminophen use 6. Status post valvular replacement with history of hypertensive heart disease 7. History of Shipman's esophagus 8. Gastroesophageal reflux disease 9. Nicotine dependence 10. Recent back surgery, July 2018 PLAN: 1. 2 L normal saline bolus 2. Continue maintenance IV fluids at 125 mL an hour 3. Dietitian at bedside to discuss weight loss with patient and help with food choices to help patient gain weight 4. Full liquid diet today. Nothing by mouth at midnight 5. Protonix 40 mg IV twice a day 6. Carafate 1 g by mouth before meals and at bedtime 7. Patient to undergo EGD tomorrow with Dr. Fleming Nurse practitioner note has been reviewed by physician. Signing provider agrees with the documented findings, assessment, and plan of care. Past Medical History Past Medical History: Blood Disorder, Heart Failure, COPD, CVA/TIA, Fibromya lgia, GERD/Reflux, Hypertension, Liver Disease, Osteoarthritis (OA) Additional Past Medical History / Comment(s): Past SHIPMAN'S ESOPHAGUS- surgically removed, past hiatal hernia, chronic back and neck pain, stroke 02/2015, TIA 06/2016 with L arm weakness, chronic bronchitis, sinus problems, hx migraines, hx tooth abscess. Pt has Spinal Cord Stimulator. PROBLEMS WITH BALANCE AND HX OF FALLS. Anemia. History of Any Multi-Drug Resistant Organisms: None Reported Past Surgical History: Appendectomy, Back Surgery, Bariatric Surgery, Section, Cholecystectomy, Hernia Repair, Joint Replacement, Orthopedic Surgery, Tubal Ligation Additional Past Surgical History / Comment(s): BACK SURGERY X2 (3rd for mid- back/removal of spinal cord stimulator to be performed on 09/04/18), NECK SURGERYX2, including a fusion, had SPINAL CORD STIMULATOR implanted in back (tens unit), cervical fusion, LAP GABRIEL EN Y (11/06/15), EGDs and EGD with dilation and removal of a staple that had migrated, colonoscopy/benign polypectomy, bilateral knee injections. Open heart surgery with valve replacement, HAD 13 TEETH EXTRACTED. Past Anesthesia/Blood Transfusion Reactions: Motion Sickness, Postoperative Nausea & Vomiting (PONV) Additional Past Anesthesia/Blood Transfusion Reaction / Comm: SLOW TO WAKE UP FROM ANESTHESIA. Past Psychological History: Depression Additional Psychological History / Comment(s): . Smoking Status: Current some day smoker Past Alcohol Use History: None Reported Additional Past Alcohol Use History / Comment(s): Has been smoking approx 28 years, 1 PPD. Past Drug Use History: None Reported - Past Family History Sister(s) Family Medical History: Myocardial Infarction (ID) Additional Family Medical History / Comment(s): at age 43 of ID. Mother Family Medical History: Myocardial Infarction (ID) Additional Family Medical History / Comment(s): Mother at age 62 of ID. Father Family Medical History: Myocardial Infarction (ID) Additional Family Medical History / Comment(s): Father in his 40's of a ID. Medications and Allergies Home Medications Medication Instructions Recorded Confirmed Type Albuterol Nebulized [Ventolin 2.5 mg INHALATION RT-TID 07/07/13 08/19/18 History Nebulized] Venlafaxine HCl [Effexor XR] 150 mg PO BID 01/12/15 08/19/18 History Cholecalciferol (Vitamin D3) 5,000 unit PO DAILY 02/13/17 08/19/18 History [Vitamin D3] Pantoprazole [Protonix] 40 mg PO BID 09/03/17 08/19/18 History Albuterol Sulfate [Proair Hfa] 1 - 2 puff INHALATION RT-Q6H PRN 11/17/17 08/19/18 History Budesonide/Formoterol Fumarate 2 puff INHALATION RT-BID 11/17/17 08/19/18 History [Symbicort 160-4.5 Mcg Inhaler] Tiotropium [place] [Spiriva] 1 cap INHALATION RT-DAILY 11/17/17 08/19/18 History Alive Ultra Potency 120 mg PO DAILY 12/10/17 08/19/18 History Acetaminophen/Diphenhydramine 2 tab PO HS 12/30/17 08/19/18 History [Tylenol PM 500-25mg] Methocarbamol [Robaxin-750] 750 mg PO TID 05/10/18 08/19/18 History Midodrine HCl [ProAmantine] 2.5 mg PO BID 05/10/18 08/19/18 History Vitamin E (Dl,Tocopheryl Acet) 400 unit PO DAILY 05/10/18 08/19/18 History [Vitamin E] Acetaminophen [Tylenol Arthritis] 1,300 mg PO BID 07/29/18 08/19/18 History Buprenorphine HCl/Naloxone HCl 1 film SL TID 07/29/18 08/19/18 History [Suboxone 8 mg-2 mg Sl Film] Calcium Carb/Vitamin D3/Vit K1 1 tab PO DAILY 08/19/18 08/19/18 History [Citracal Soft Chew] Gabapentin [Neurontin] 300 mg PO TID 08/19/18 08/19/18 History Multivitamin/Iron/Folic Acid 1 tab PO DAILY 08/19/18 08/19/18 History [Centrum Adults Tablet] Allergies Allergy/AdvReac Type Severity Reaction Status Date / Time ibuprofen [From Motrin] AdvReac Unknown Verified 08/19/18 07:38 Mushroom AdvReac Nausea & Verified 08/19/18 07:38 Vomiting Surgical - Exam Vital Signs Pulse Resp 114 H 08/19/18 09:20 08/19/18 09:20 Results - Labs 08/19/18 10:33 08/19/18 10:33 Abnormal Lab Results - Last 24 Hours (Table) 08/19/18 08/19/18 08/19/18 Range/Units 00:20 00:20 05:00 WBC 22.4 H (3.8-10.6) k/uL RBC 5.72 H (3.80-5.40) m/uL Hgb 16.8 H (11.4-16.0) gm/dL Hct 51.8 H (34.0-46.0) % Neutrophils # 20.1 H (1.3-7.7) k/uL Monocytes # (0-1.0) k/uL Chloride (98-107) mmol/L Carbon Dioxide 20 L (22-30) mmol/L BUN 28 H (7-17) mg/dL Glucose 202 H (74-99) mg/dL POC Glucose (mg/dL) 134 H (75-99) mg/dL ALT 62 H (9-52) U/L 08/19/18 08/19/18 Range/Units 10:33 10:33 WBC 25.7 H (3.8-10.6) k/uL RBC (3.80-5.40) m/uL Hgb (11.4-16.0) gm/dL Hct (34.0-46.0) % Neutrophils # 22.7 H (1.3-7.7) k/uL Monocytes # 1.4 H (0-1.0) k/uL Chloride 109 H (98-107) mmol/L Carbon Dioxide (22-30) mmol/L BUN 34 H (7-17) mg/dL Glucose 140 H (74-99) mg/dL POC Glucose (mg/dL) (75-99) mg/dL ALT (9-52) U/L Diabetes panel 08/19/18 08/19/18 Range/Units 00:20 10:33 Sodium 138 139 (137-145) mmol/L Potassium 4.3 4.5 (3.5-5.1) mmol/L Chloride 104 109 H (98-107) mmol/L Carbon Dioxide 20 L 23 (22-30) mmol/L BUN 28 H 34 H (7-17) mg/dL Creatinine 0.72 0.64 (0.52-1.04) mg/dL Glucose 202 H 140 H (74-99) mg/dL Calcium 10.2 9.5 (8.4-10.2) mg/dL AST 35 27 (14-36) U/L ALT 62 H 48 (9-52) U/L Alkaline Phosphatase 117 88 (38-126) U/L Total Protein 7.5 6.5 (6.3-8.2) g/dL Albumin 4.5 4.0 (3.5-5.0) g/dL Calcium panel 08/19/18 08/19/18 Range/Units 00:20 10:33 Calcium 10.2 9.5 (8.4-10.2) mg/dL Albumin 4.5 4.0 (3.5-5.0) g/dL Pituitary panel 08/19/18 08/19/18 Range/Units 00:20 10:33 Sodium 138 139 (137-145) mmol/L Potassium 4.3 4.5 (3.5-5.1) mmol/L Chloride 104 109 H (98-107) mmol/L Carbon Dioxide 20 L 23 (22-30) mmol/L BUN 28 H 34 H (7-17) mg/dL Creatinine 0.72 0.64 (0.52-1.04) mg/dL Glucose 202 H 140 H (74-99) mg/dL Calcium 10.2 9.5 (8.4-10.2) mg/dL Adrenal panel 08/19/18 08/19/18 Range/Units 00:20 10:33 Sodium 138 139 (137-145) mmol/L Potassium 4.3 4.5 (3.5-5.1) mmol/L Chloride 104 109 H (98-107) mmol/L Carbon Dioxide 20 L 23 (22-30) mmol/L BUN 28 H 34 H (7-17) mg/dL Creatinine 0.72 0.64 (0.52-1.04) mg/dL Glucose 202 H 140 H (74-99) mg/dL Calcium 10.2 9.5 (8.4-10.2) mg/dL Total Bilirubin 0.6 0.5 (0.2-1.3) mg/dL AST 35 27 (14-36) U/L ALT 62 H 48 (9-52) U/L Alkaline Phosphatase 117 88 (38-126) U/L Total Protein 7.5 6.5 (6.3-8.2) g/dL Albumin 4.5 4.0 (3.5-5.0) g/dL <Rayne Fleming - Last Filed: 08/20/18 09:15> History of Present Illness History of present illness: As above. We'll proceed with upper endoscopy. Surgical - Exam Vital Signs Pulse Resp 114 H 19 08/19/18 09:20 08/19/18 09:20 Results - Labs 08/20/18 05:20 08/20/18 05:20 Abnormal Lab Results - Last 24 Hours (Table) 08/19/18 08/19/18 08/19/18 Range/Units 10:33 10:33 21:41 WBC 25.7 H 20.3 H (3.8-10.6) k/uL Neutrophils # 22.7 H 17.0 H (1.3-7.7) k/uL Monocytes # 1.4 H 1.1 H (0-1.0) k/uL Chloride 109 H (98-107) mmol/L BUN 34 H (7-17) mg/dL Glucose 140 H (74-99) mg/dL POC Glucose (mg/dL) (75-99) mg/dL Total Protein (6.3-8.2) g/dL Albumin (3.5-5.0) g/dL 08/19/18 08/20/18 08/20/18 Range/Units 23:00 00:12 05:20 WBC 23.1 H 20.9 H (3.8-10.6) k/uL Neutrophils # 19.0 H 17.4 H (1.3-7.7) k/uL Monocytes # 1.1 H (0-1.0) k/uL Chloride (98-107) mmol/L BUN (7-17) mg/dL Glucose (74-99) mg/dL POC Glucose (mg/dL) 114 H (75-99) mg/dL Total Protein (6.3-8.2) g/dL Albumin (3.5-5.0) g/dL 08/20/18 Range/Units 05:20 WBC (3.8-10.6) k/uL Neutrophils # (1.3-7.7) k/uL Monocytes # (0-1.0) k/uL Chloride 109 H (98-107) mmol/L BUN 19 H (7-17) mg/dL Glucose 123 H (74-99) mg/dL POC Glucose (mg/dL) (75-99) mg/dL Total Protein 5.7 L (6.3-8.2) g/dL Albumin 3.4 L (3.5-5.0) g/dL Diabetes panel 08/19/18 08/20/18 Range/Units 10:33 05:20 Sodium 139 138 (137-145) mmol/L Potassium 4.5 3.9 (3.5-5.1) mmol/L Chloride 109 H 109 H (98-107) mmol/L Carbon Dioxide 23 22 (22-30) mmol/L BUN 34 H 19 H (7-17) mg/dL Creatinine 0.64 0.62 (0.52-1.04) mg/dL Glucose 140 H 123 H (74-99) mg/dL Calcium 9.5 8.9 (8.4-10.2) mg/dL AST 27 21 (14-36) U/L ALT 48 41 (9-52) U/L Alkaline Phosphatase 88 72 (38-126) U/L Total Protein 6.5 5.7 L (6.3-8.2) g/dL Albumin 4.0 3.4 L (3.5-5.0) g/dL Calcium panel 08/19/18 08/20/18 Range/Units 10:33 05:20 Calcium 9.5 8.9 (8.4-10.2) mg/dL Albumin 4.0 3.4 L (3.5-5.0) g/dL Pituitary panel 08/19/18 08/20/18 Range/Units 10:33 05:20 Sodium 139 138 (137-145) mmol/L Potassium 4.5 3.9 (3.5-5.1) mmol/L Chloride 109 H 109 H (98-107) mmol/L Carbon Dioxide 23 22 (22-30) mmol/L BUN 34 H 19 H (7-17) mg/dL Creatinine 0.64 0.62 (0.52-1.04) mg/dL Glucose 140 H 123 H (74-99) mg/dL Calcium 9.5 8.9 (8.4-10.2) mg/dL Adrenal panel 08/19/18 08/20/18 Range/Units 10:33 05:20 Sodium 139 138 (137-145) mmol/L Potassium 4.5 3.9 (3.5-5.1) mmol/L Chloride 109 H 109 H (98-107) mmol/L Carbon Dioxide 23 22 (22-30) mmol/L BUN 34 H 19 H (7-17) mg/dL Creatinine 0.64 0.62 (0.52-1.04) mg/dL Glucose 140 H 123 H (74-99) mg/dL Calcium 9.5 8.9 (8.4-10.2) mg/dL Total Bilirubin 0.5 0.7 (0.2-1.3) mg/dL AST 27 21 (14-36) U/L ALT 48 41 (9-52) U/L Alkaline Phosphatase 88 72 (38-126) U/L Total Protein 6.5 5.7 L (6.3-8.2) g/dL Albumin 4.0 3.4 L (3.5-5.0) g/dL
[2018-08-19] MEDS: MAGNESIUM SULFATE-D5W PMX 1 GM in DEXTROSE/WATER 1 100ML.BAG IVPB SCH ×2 (15:16→16:22)
--- NOTE | 2018-08-19 16:31 | P.HPIM ---
History of Present Illness H&P Date: 08/19/18 Chief Complaint: Blood in the vomit Patient is a 58-year-old female with a known history of gastric bypass surgery, Shipman's esophagus-surgically removed, chronic back pain and neck pain status post removal of nevus stimulator recently at [facility], chronic pain s yndrome and on Suboxone at home, GERD, hypertension, osteoarthritis, COPD, migraine headaches and other multiple medical problems came to ER with complaints of nausea vomiting and upper abdominal pain. Patient is having maroon-colored vomitings since yesterday. Patient is also having worsening epi gastric abdominal pain which made her to come to the hospital. Denied any dark- colored stools or melena. Denied any complaints of chest pain or shortness of breath. No cough or sputum production. Patient says that she was having some fever as well at home. Patient has been afebrile while in the hospital. No headache or dizziness or lightheadedness. Denied any wrwf-xna-zepqvni pain medication use including Motrin. Patient does take Tylenol arthritis for pain. Denied any recent illnesses or sick contacts. No diarrhea. Hemoglobin 16.8 on admission. WBC 20 Review of Systems Constitutional: Subjective fevers at home. No chills. . Generalized weakness. Patient has been having weight loss recently.. Abdomen: Nausea vomiting and abdominal pain. Cardiovascular: Patient denies any chest pain or short of breath no palpitations. Respiratory: patient denied any cough is from production. No shortness of breath Neurologic: Patient denied any numbness or tingling headache. Musculoskeletal: Patient denies any complaints of joint swelling or deformity. Skin: Negative Psychiatric: Negative Endocrine: No heat or cold intolerance. No recent weight gain. Genitourinary: No dysuria or hematuria. All other 14 point ROS negative except the above Past Medical History Past Medical History: Blood Disorder, Heart Failure, COPD, CVA/TIA, Fibromyalgia, GERD/Reflux, Hypertension, Liver Disease, Osteoarthritis (OA) Additional Past Medical History / Comment(s): Past SHIPMAN'S ESOPHAGUS- surgically removed, past hiatal hernia, chronic back and neck pain, stroke 02/2015, TIA 06/2016 with L arm weakness, chronic bronchitis, sinus problems, hx migraines, hx tooth abscess. Pt has Spinal Cord Stimulator. PROBLEMS WITH BALANCE AND HX OF FALLS. Anemia. History of Any Multi-Drug Resistant Organisms: None Reported Past Surgical History: Appendectomy, Back Surgery, Bariatric Surgery, Section, Cholecystectomy, Hernia Repair, Joint Replacement, Orthopedic Surgery, Tubal Ligation Additional Past Surgical History / Comment(s): BACK SURGERY X2 (3rd for mid- back/removal of spinal cord stimulator to be performed on 09/04/18), NECK SURGERYX2, including a fusion, had SPINAL CORD STIMULATOR implanted in back (tens unit), cervical fusion, LAP GABRIEL EN Y (11/06/15), EGDs and EGD with dilation and removal of a staple that had migrated, colonoscopy/benign polypectomy, bilateral knee injections. Open heart surgery with valve replacement, HAD 13 TEETH EXTRACTED. Past Anesthesia/Blood Transfusion Reactions: Motion Sickness, Postoperative Nausea & Vomiting (PONV) Additional Past Anesthesia/Blood Transfusion Reaction / Comment(s): SLOW TO WAKE UP FROM ANESTHESIA. Past Psychological History: Depression Additional Psychological History / Comment(s): . Smoking Status: Current some day smoker Past Alcohol Use History: None Reported Additional Past Alcohol Use History / Comment(s): Has been smoking approx 28 years, 1 PPD. Past Drug Use History: None Reported - Past Family History Sister(s) Family Medical History: Myocardial Infarction (AR) Additional Family Medical History / Comment(s): at age 43 of AR. Mother Family Medical History: Myocardial Infarction (AR) Additional Family Medical History / Comment(s): Mother at age 62 of AR. Father Family Medical History: Myocardial Infarction (AR) Additional Family Medical History / Comment(s): Father in his 40's of a AR. Medications and Allergies Home Medications Medication Instructions Recorded Confirmed Type Albuterol Nebulized [Ventolin 2.5 mg INHALATION RT-TID 07/07/13 08/19/18 History Nebulized] Venlafaxine HCl [Effexor XR] 150 mg PO BID 01/12/15 08/19/18 History Cholecalciferol (Vitamin D3) 5,000 unit PO DAILY 02/13/17 08/19/18 History [Vitamin D3] Pantoprazole [Protonix] 40 mg PO BID 09/03/17 08/19/18 History Albuterol Sulfate [Proair Hfa] 1 - 2 puff INHALATION RT-Q6H PRN 11/17/17 08/19/18 History Budesonide/Formoterol Fumarate 2 puff INHALATION RT-BID 11/17/17 08/19/18 History [Symbicort 160-4.5 Mcg Inhaler] Tiotropium [place] [Spiriva] 1 cap INHALATION RT-DAILY 11/17/17 08/19/18 History Alive Ultra Potency 120 mg PO DAILY 12/10/17 08/19/18 History Acetaminophen/Diphenhydramine 2 tab PO HS 12/30/17 08/19/18 History [Tylenol PM 500-25mg] Methocarbamol [Robaxin-750] 750 mg PO TID 05/10/18 08/19/18 History Midodrine HCl [ProAmantine] 2.5 mg PO BID 05/10/18 08/19/18 History Vitamin E (Dl,Tocopheryl Acet) 400 unit PO DAILY 05/10/18 08/19/18 History [Vitamin E] Acetaminophen [Tylenol Arthritis] 1,300 mg PO BID 07/29/18 08/19/18 History Buprenorphine HCl/Naloxone HCl 1 film SL TID 07/29/18 08/19/18 History [Suboxone 8 mg-2 mg Sl Film] Calcium Carb/Vitamin D3/Vit K1 1 tab PO DAILY 08/19/18 08/19/18 History [Citracal Soft Chew] Gabapentin [Neurontin] 300 mg PO TID 08/19/18 08/19/18 History Multivitamin/Iron/Folic Acid 1 tab PO DAILY 08/19/18 08/19/18 History [Centrum Adults Tablet] Allergies Allergy/AdvReac Type Severity Reaction Status Date / Time ibuprofen [From Motrin] AdvReac Unknown Verified 08/19/18 07:38 Mushroom AdvReac Nausea & Verified 08/19/18 07:38 Vomiting Physical Exam Vitals: Vital Signs Temp Pulse Resp BP Pulse Ox 08/19/18 09:44 98.4 F 121 H 17 138/101 96 Intake and Output 08/18/18 08/19/18 08/19/18 22:59 06:59 14:59 Intake Total 1999 Balance 1999 Intake: Amount of Fluid Infused ( 2000 ml) Other: Weight 49.895 kg PHYSICAL EXAMINATION: Patient is lying in the bed comfortably, no acute distress, awake alert and oriented.. HEENT: Normocephalic. Neck is supple. Pupils reactive. Nostrils clear. Oral cavity is moist. Ears reveal no drainage. Neck reveals no JVD, carotid bruits, or thyromegaly. CHEST EXAMINATION: Trachea is central. Symmetrical expansion. Bibasilar diminished air entry. Crackles at the base.. CARDIAC: Normal S1, S2 with no gallops. No murmurs ABDOMEN: Soft. Epigastric tenderness. Bowel sounds normal. No organomegaly. No abdominal bruits. Extremities: reveal no edema. No clubbing or cyanosis Neurologically awake, alert, oriented x3 with well-coordinated movements. No focal deficits noted Skin: No rash or skin lesions. Psychiatric: Coperative. Nonsuicidal Musculoskeletal: No joint swelling or deformity. Normal range of motion. Results CBC & Chem 7: 08/19/18 10:33 08/19/18 10:33 Labs: Abnormal Lab Results - Last 24 Hours (Table) 08/19/18 08/19/18 08/19/18 Range/Units 00:20 00:20 05:00 WBC 22.4 H (3.8-10.6) k/uL RBC 5.72 H (3.80-5.40) m/uL Hgb 16.8 H (11.4-16.0) gm/dL Hct 51.8 H (34.0-46.0) % Neutrophils # 20.1 H (1.3-7.7) k/uL Carbon Dioxide 20 L (22-30) mmol/L BUN 28 H (7-17) mg/dL Glucose 202 H (74-99) mg/dL POC Glucose (mg/dL) 134 H (75-99) mg/dL ALT 62 H (9-52) U/L Thrombosis Risk Factor Assmnt - DVT/VTE Prophylaxis DVT/VTE Prophylaxis: Pharmacologic Prophylaxis ordered - Choose All That Apply Any of the Below Risk Factors Present?: Yes Each Factor Represents 1 point: Abnormal pulmonary function (COPD), Age 41-60 years, Heart failure (<1month) Other Risk Factors: No Thrombosis Risk Factor Assessment Total Risk Factor Score: 3 Thrombosis Risk Factor Assessment Level: Moderate Risk Assessment and Plan Assessment: Acute upper GI bleed Possible gastrojejunal ulcer suspected Acute blood loss anemia secondary to GI bleed History of gastric bypass surgery in 2016 GERD Leukocytosis suspected aspiration. Elevated ALT level. COPD Chronic back pain with history of back surgery and recent removal of spinal cord stimulator at [facility]. History of aortic valve replacement Hypertension Osteoarthritis History of Shipman's esophagus surgically removed Chronic pain syndrome Nicotine dependence Depression Unintentional Weight loss with mild to moderate protein calorie malnutrition DVT prophylaxis with SCDs Plan: Patient will be continued on IV fluids and Protonix IV, Carafate and monitor H&H. Due to the leukocytosis chest x-ray and UA was ordered. Will start on Zosyn for possible aspiration pneumonia. Patient also says that she had subjective fevers at home. Continue with breathing treatments and follow up closely. Follow liver enzymes. Patient was seen by general surgery and is planning for EGD tomorrow. Further recommendations based on the clinical course. Prognosis is guarded. Time with Patient: Greater than 30
--- NOTE | 2018-08-19 16:43 | XR ---
EXAMINATION TYPE: XR chest 1V DATE OF EXAM: 08/19/2018 COMPARISON: 02/26/2018 INDICATION: Leukocytosis TECHNIQUE: Single frontal view of the chest is obtained. FINDINGS: The heart size is normal. The pulmonary vasculature is normal. There is a nodular date density at the left base. This could be a nipple shadow. This was present pre viously. Corresponding right-sided nipple shadow is not identified. Sternotomy wires are present from prior CABG. IMPRESSION: 1. Nipple shadow versus left basilar nodule. Follow-up chest x-ray with nipple markers can be used fo r confirmation. Finding appears similar to comparison. 2. No suspicious infiltrates.
[2018-08-19] MEDS: SODIUM CHLORIDE 0.9% 1,000 ML IV SCH ×2 (17:12→19:59)
[2018-08-19] MEDS: PIPERACILLIN-TAZOBACTAM 3.375 GM in SODIUM CHLORIDE 0.9% 100 ML IVPB SCH ×2 (17:14→23:57)
[2018-08-19] MEDS: SUCRALFATE 1 GM TAB PO SCH ×2 (19:41→21:42)
[2018-08-19] MEDS: SYMBICORT 160-4.5 MCG INHALER INHALATION SCH (19:54)
[2018-08-19] MEDS: ONDANSETRON 4 MG/2 ML VIAL IVP PRN (19:56)
[2018-08-19] MEDS: PANTOPRAZOLE 40 MG/10 ML VIAL IVP SCH (21:39)
[2018-08-19] MEDS: VENLAFAXINE HCL ER 150 MG CAP PO SCH (21:43)
[2018-08-19] MEDS: GABAPENTIN 300 MG CAP PO SCH (21:43)
[2018-08-19] MEDS: SUBOXONE SL SCH (21:44)
[2018-08-19] MEDS: PROCHLORPERAZINE SUPPOSITORY 25 MG SUPP RECTAL PRN (21:47)
[2018-08-19 22:41] LABS: Basophils % (A) 0 %; Eosinophils # (A) 0.1 k/uL (0-0.7); Eosinophils % (A) 0 %; HCT 39.7 % (34.0-46.0); Lymphocytes # (A) 1.9 k/uL (1.0-4.8); Lymphocytes % (A) 9 %; MCHC 32.8 g/dL (31.0-37.0); MCV 91.5 fL (80.0-100.0); Mean Platelet Volume 7.6; Monocytes # (A) 1.1 k/uL (0-1.0); Monocytes % (A) 5 %; Neutrophils % (A) 84 %; Platelet Count 234 k/uL (150-450); RBC 4.33 m/uL (3.80-5.40); RDW 14.5 % (11.5-15.5); WBC 20.3 k/uL (3.8-10.6)
[2018-08-19 23:02] LABS: Glucose,Whole Blood 114 mg/dL (75-99)
[2018-08-19] MEDS: MIDODRINE 5 MG TAB PO SCH (23:21)
[2018-08-20 00:34] LABS: Basophils % (A) 0 %; Eosinophils # (A) 0.3 k/uL (0-0.7); Eosinophils % (A) 1 %; HCT 38.7 % (34.0-46.0); HGB 12.7 gm/dL (11.4-16.0); Lymphocytes # (A) 2.4 k/uL (1.0-4.8); Lymphocytes % (A) 10 %; MCHC 32.9 g/dL (31.0-37.0); Mean Platelet Volume 7.5; Monocytes # (A) 1.1 k/uL (0-1.0); Monocytes % (A) 5 %; Neutrophils % (A) 82 %; Platelet Count 244 k/uL (150-450); RBC 4.25 m/uL (3.80-5.40); RDW 14.3 % (11.5-15.5); WBC 23.1 k/uL (3.8-10.6)
[2018-08-20] MEDS: MORPHINE SULFATE 4 MG/ML SYRINGE IVP PRN ×6 (00:40→20:10)
[2018-08-20] MEDS: SODIUM CHLORIDE 0.9% 1,000 ML IV SCH ×3 (01:43→22:23)
[2018-08-20] MEDS: ONDANSETRON 4 MG/2 ML VIAL IVP PRN ×4 (01:46→20:28)
[2018-08-20 05:34] LABS: Basophils % (A) 0 %; Eosinophils # (A) 0.3 k/uL (0-0.7); Eosinophils % (A) 2 %; HGB 12.8 gm/dL (11.4-16.0); Lymphocytes % (A) 10 %; MCH 29.3 pg (25.0-35.0); MCV 91.3 fL (80.0-100.0); Mean Platelet Volume 7.2; Monocytes # (A) 0.9 k/uL (0-1.0); Monocytes % (A) 4 %; Neutrophils # (A) 17.4 k/uL (1.3-7.7); Neutrophils % (A) 83 %; Platelet Count 247 k/uL (150-450); RBC 4.38 m/uL (3.80-5.40); RDW 14.3 % (11.5-15.5); WBC 20.9 k/uL (3.8-10.6)
[2018-08-20 05:46] LABS: ALT 41 U/L (9-52); AST 21 U/L (14-36); African American GFR (CKD) >90 (>60 ml/min/1.73 sqM); Albumin 3.4 g/dL (3.5-5.0); Alkaline Phosphatase 72 U/L (38-126); Anion Gap 7 mmol/L; Blood Urea Nitrogen 19 mg/dL (7-17); Calcium 8.9 mg/dL (8.4-10.2); Carbon Dioxide 22 mmol/L (22-30); Chloride 109 mmol/L (98-107); Glucose 123 mg/dL (74-99); Magnesium 1.8 mg/dL (1.6-2.3); Potassium 3.9 mmol/L (3.5-5.1); Sodium 138 mmol/L (137-145); Total Bilirubin 0.7 mg/dL (0.2-1.3); Total Protein 5.7 g/dL (6.3-8.2)
[2018-08-20] MEDS: SYMBICORT 160-4.5 MCG INHALER INHALATION SCH ×2 (07:12→19:03)
[2018-08-20] MEDS: IPRATROPIUM-ALBUTEROL 3 ML NEB INHALATION PRN ×3 (07:18→19:04)
[2018-08-20] MEDS: PIPERACILLIN-TAZOBACTAM 3.375 GM in SODIUM CHLORIDE 0.9% 100 ML IVPB SCH ×3 (08:18→23:40)
[2018-08-20] MEDS: GABAPENTIN 300 MG CAP PO SCH ×3 (08:19→22:21)
[2018-08-20] MEDS: MIDODRINE 5 MG TAB PO SCH ×2 (08:19→20:09)
[2018-08-20] MEDS: CHOLECALCIFEROL 1,000 UNIT TAB PO SCH (08:19)
[2018-08-20] MEDS: CALCIUM CARB-VIT D 500MG-200UN 1 EACH TAB PO SCH (08:19)
[2018-08-20] MEDS: MULTIVITAMINS, THERA 1 EACH TAB PO SCH (08:19)
[2018-08-20] MEDS: VITAMIN E (DL,TOCOPHERYL ACET) 400 UNIT CAP PO SCH (08:21)
[2018-08-20] MEDS: PANTOPRAZOLE 40 MG/10 ML VIAL IVP SCH ×2 (08:48→20:09)
[2018-08-20] MEDS ORDERED: PROPOFOL 10 MG/ML 20 ML VIAL IV ONE (09:19)
[2018-08-20] MEDS ORDERED: IV FLUID CONTINUATION 1,000 ML IV ONE (09:24)
--- NOTE | 2018-08-20 09:35 | P.PCN ---
Date of Procedure: 08/20/18 Description of Procedure: PREOPERATIVE DIAGNOSES: 1. Upper GI bleed 2. History of hematemesis 3. Epigastric abdominal pain. 4. Nausea and vomiting. 5. History of gastric bypass. 6. History of congestive heart failure POSTOPERATIVE DIAGNOSES: 1. Upper GI bleed 2. History of hematemesis 3. Epigastric abdominal pain. 4. Nausea and vomiting. 5. History of gastric bypass. 6. History of congestive heart failure 7. Active and chronic tobacco abuse PROCEDURE PERFORMED: Esophagogastrojejunoscopy. SURGEON: Rayne Fleming MD ANESTHESIA: MAC. INDICATIONS: The patient is a 58-year-old female with prior history of Pavan-en-Y gastric bypass who presented with hematemesis including epigastric abdominal pain and nausea and vomiting. Upper endoscopy was offered for further evaluation and management. DESCRIPTION: Patient was brought to the endoscopy suite and laid in the left lateral decubitus position. After adequate IV sedation, a bite block was placed. An Olympus gastroscope was passed along the posterior oropharynx down to the distal esophagus where no evidence of stricture was found of the gastrojejunal anastomosis. Moderate acidified contents was found of the gastric pouch including pavan limb. No active bleeding was found along the gastric pouch. Marginal ulcer was obscured by moderate fluid in the gastric pouch. The scope was advanced 60 cm from the incisors. No evidence of foreign body was found. The GI tract was desufflated. The patient tolerated the proced ure well. FINDINGS: 1. Recent upper GI bleed from gastrojejunal ulceration without active bleeding. 2. No foreign body found along the anastomosis. PLAN: 1. Strict tobacco cessation for treatment of chronic gastrojejunal ulcer. 2. Continue with proton pump inhibitor twice daily 3. Recommend Carafate.
[2018-08-20] MEDS: SUBOXONE SL SCH ×3 (10:04→22:27)
[2018-08-20] MEDS: SCOPOLAMINE 1.5MG/72HR PATCH TRANSDERM SCH (10:08)
[2018-08-20] MEDS: SUCRALFATE 1 GM TAB PO SCH ×3 (11:33→15:32)
[2018-08-20] MEDS: VENLAFAXINE HCL ER 150 MG CAP PO SCH ×2 (13:03→20:09)
[2018-08-20 13:49] LABS: Appearance,Urine Clear (Clear); Bilirubin,Urine Negative (Negative); Blood,Urine Negative (Negative); Color,Urine Yellow; Glucose,Urine (UA) Negative (Negative); Ketones,Urine Trace (Negative); Leukocyte Esterase,Urine Trace (Negative); Mucus,Urine Rare /hpf; Nitrite,Urine Negative (Negative); PH, Urine 5.5 (5.0-8.0); Protein,Urine Negative (Negative); RBC,Urine 1 /hpf (0-5); Specific Gravity,Urine 1.018 (1.001-1.035); Urobilinogen,Urine <2.0 mg/dL (<2.0)
[2018-08-20] MEDS: PROCHLORPERAZINE SUPPOSITORY 25 MG SUPP RECTAL PRN (14:07)
--- NOTE | 2018-08-20 20:24 | P.PN ---
Progress Note - Text Progress Note Date: 08/20/18 No further vomiting. No further hematemesis following upper endoscopy. Patient only reports gassiness. Patient confirms chronic tobacco abuse despite strict education and warning against tobacco abuse with her history of gastric bypass. In the interim, strict tobacco cessation with Carafate and Protonix. Additionally, may have bariatric full liquid diet. No additional surgical intervention needed at this time.
[2018-08-20] MEDS: SIMETHICONE 40 MG/0.6 ML DROPS 2,000 MG/30 ML BOTTLE PO SCH (22:21)
[2018-08-20] MEDS: LORazepam 2 MG/ML INJ IV PRN (23:40)
--- NOTE | 2018-08-21 02:02 | P.PN ---
Subjective Progress Note Date: 08/20/18 Principal diagnosis: Upper GI bleed Patient is a 58-year-old female with a known history of gastric bypass surgery, Hernandez's esophagus-surgically removed, chronic back pain and neck pain status post removal of nevus stimulator recently at [facility], chronic pain syndrome and on Suboxone at home, GERD, hypertension, osteoarthritis, COPD, migraine headaches and other multiple medical problems came to ER with complaints of nausea vomiting and upper abdominal pain. Patient is having maroon-colored vomitings since yesterday. Patient is also having worsening epigastric abdominal pain which made her to come to the hospital. Denied any dark-colored stools or melena. Denied any complaints of chest pain or shortness of breath. No cough or sputum production. Patient says that she was having some fever as well at home. Patient has been afebrile while in the hospital. No headache or dizziness or lightheadedness. Denied any [id number]-vtrldtv pain medication use including Motrin. Patient does take Tylenol arthritis for pain. Denied any recent illnesses or sick contacts. No diarrhea. Hemoglobin 16.8 on admission. WBC 20 08/20/2018 Patient is still complaining of abdominal pain and back pain. Patient is status post EGD showed Recent upper GI bleed from gastrojejunal ulceration without active bleeding. Patient is still having leukocytosis with WBC count 20.9. Hemoglobin 12.8 No fever no chills. Cultures have been negative so far. Patient is being continued on PPI and Carafate. Continued on IV pain medications. IV fluids and general surgery is on board. No complains of chest pain or shortness of breath. Chest x-ray showed no suspicious infiltrates. UA negative for infection. Current medications reviewed. Objective - Vital Signs Vital signs: Vital Signs Temp 98.7 F 08/20/18 16:15 Pulse 101 H 08/20/18 16:15 Resp 16 08/20/18 16:00 BP 161/95 08/20/18 16:15 Pulse Ox 99 08/20/18 16:15 Intake & Output 08/19/18 08/20/18 08/20/18 18:59 06:59 18:59 Intake Total 5148 180 Output Total 300 1050 Balance 4848 -1050 180 Weight 50.5 kg 53.5 kg Intake: IV 20 Amount of Fluid Infused ( 2000 ml) Intake, IV Titration 2948 Amount Magnesium Sulfate-D5w Pmx 200 1 gm In Dextrose/Water 1 100ml.bag @ 100 mls/hr IVPB Q1H [facility] Rx#: [id number] Sodium Chloride 0.9% 1, 750 000 ml @ 125 mls/hr IV . Q8H [facility] Rx#:[id number] Sodium Chloride 0.9% 1, 999 000 ml @ 999 mls/hr IV . Q1H1M [facility] Rx#:[id number] Sodium Chloride 0.9% 1, 999 000 ml @ 999 mls/hr IV . Q1H1M [facility] Rx#:[id number] Oral 200 160 Output: Emesis 300 1050 Other: Voiding Method Toilet Toilet Toilet Bedside Commode Bedside Commode # Voids 1 1 1 - Exam PHYSICAL EXAMINATION: Patient is lying in the bed comfortably, no acute distress, awake alert and oriented.. HEENT: Normocephalic. Neck is supple. Pupils reactive. Nostrils clear. Oral cavity is moist. Ears reveal no drainage. Neck reveals no JVD, carotid bruits, or thyromegaly. CHEST EXAMINATION: Trachea is central. Symmetrical expansion. Bibasilar diminished air entry. Crackles at the base.. CARDIAC: Normal S1, S2 with no gallops. No murmurs ABDOMEN: Soft. Epigastric tenderness. Bowel sounds normal. No organomegaly. No abdominal bruits. Extremities: reveal no edema. No clubbing or cyanosis Neurologically awake, alert, oriented x3 with well-coordinated movements. No focal deficits noted Skin: No rash or skin lesions. Psychiatric: Coperative. Nonsuicidal Musculoskeletal: No joint swelling or deformity. Normal range of motion. - Labs CBC & Chem 7: 08/20/18 05:20 08/20/18 05:20 Labs: Abnormal Lab Results - Last 24 Hours (Table) 08/19/18 08/19/18 08/20/18 Range/Units 21:41 23:00 00:12 WBC 20.3 H 23.1 H (3.8-10.6) k/uL Neutrophils # 17.0 H 19.0 H (1.3-7.7) k/uL Monocytes # 1.1 H 1.1 H (0-1.0) k/uL Chloride (98-107) mmol/L BUN (7-17) mg/dL Glucose (74-99) mg/dL POC Glucose (mg/dL) 114 H (75-99) mg/dL Total Protein (6.3-8.2) g/dL Albumin (3.5-5.0) g/dL Urine Ketones (Negative) Ur Leukocyte Esterase (Negative) Urine Mucus (None) /hpf 08/20/18 08/20/18 08/20/18 Range/Units 05:20 05:20 13:15 WBC 20.9 H (3.8-10.6) k/uL Neutrophils # 17.4 H (1.3-7.7) k/uL Monocytes # (0-1.0) k/uL Chloride 109 H (98-107) mmol/L BUN 19 H (7-17) mg/dL Glucose 123 H (74-99) mg/dL POC Glucose (mg/dL) (75-99) mg/dL Total Protein 5.7 L (6.3-8.2) g/dL Albumin 3.4 L (3.5-5.0) g/dL Urine Ketones Trace H (Negative) Ur Leukocyte Esterase Trace H (Negative) Urine Mucus Rare H (None) /hpf Assessment and Plan Assessment: Acute upper GI bleed. Status post EGD. No active bleeding noted. Hemoglobin stable. Acute blood loss anemia secondary to GI bleed History of gastric bypass surgery in 2016 GERD Leukocytosis suspected aspiration. Elevated ALT level. COPD Chronic back pain with history of back surgery and recent removal of spinal cord stimulator at [facility]. History of aortic valve replacement Hypertension Osteoarthritis History of Hernandez's esophagus surgically removed Chronic pain syndrome Nicotine dependence Depression Unintentional Weight loss with mild to moderate protein calorie malnutrition DVT prophylaxis with SCDs Plan: Patient will be continued on IV fluids and Protonix IV, Carafate and monitor H&H. Due to the leukocytosis chest x-ray and UA was ordered. Continue with Zosyn for possible aspiration pneumonia. Patient also says that she had subjective fevers at home. Continue with breathing treatments and follow up closely. Follow liver enzymes, normalized now. Patient was seen by general surgery. Status post EGD. Continue the pain management. Further recommendations based on the clinical course. Prognosis is guarded. Time with Patient: Greater than 30
[2018-08-21] MEDS: MORPHINE SULFATE 4 MG/ML SYRINGE IVP PRN ×3 (03:20→15:52)
[2018-08-21] MEDS: ONDANSETRON 4 MG/2 ML VIAL IVP PRN ×2 (03:36→15:53)
[2018-08-21] MEDS: SODIUM CHLORIDE 0.9% 1,000 ML IV SCH ×3 (04:31→21:08)
[2018-08-21] MEDS: IPRATROPIUM-ALBUTEROL 3 ML NEB INHALATION PRN ×2 (07:41→15:52)
[2018-08-21] MEDS: SYMBICORT 160-4.5 MCG INHALER INHALATION SCH ×2 (07:41→20:29)
[2018-08-21] MEDS: SUBOXONE SL SCH (08:08)
[2018-08-21] MEDS: SIMETHICONE 40 MG/0.6 ML DROPS 2,000 MG/30 ML BOTTLE PO SCH ×4 (08:08→21:09)
[2018-08-21] MEDS: SUCRALFATE 1 GM TAB PO SCH ×3 (08:08→18:11)
[2018-08-21] MEDS: CALCIUM CARB-VIT D 500MG-200UN 1 EACH TAB PO SCH (08:09)
[2018-08-21] MEDS: CHOLECALCIFEROL 1,000 UNIT TAB PO SCH (08:09)
[2018-08-21] MEDS: GABAPENTIN 300 MG CAP PO SCH ×3 (08:11→21:09)
[2018-08-21] MEDS: MIDODRINE 5 MG TAB PO SCH (08:11)
[2018-08-21] MEDS: VITAMIN E (DL,TOCOPHERYL ACET) 400 UNIT CAP PO SCH (08:12)
[2018-08-21] MEDS: PANTOPRAZOLE 40 MG/10 ML VIAL IVP SCH ×2 (08:12→21:42)
[2018-08-21] MEDS: VENLAFAXINE HCL ER 150 MG CAP PO SCH (08:12)
[2018-08-21] MEDS: MULTIVITAMINS, THERA 1 EACH TAB PO SCH (08:12)
[2018-08-21 09:51] LABS: Basophils % (A) 0 %; Eosinophils # (A) 0.1 k/uL (0-0.7); Eosinophils % (A) 0 %; HCT 35.9 % (34.0-46.0); Lymphocytes # (A) 1.4 k/uL (1.0-4.8); Lymphocytes % (A) 9 %; MCH 29.7 pg (25.0-35.0); MCHC 33.3 g/dL (31.0-37.0); Mean Platelet Volume 8.2; Monocytes # (A) 0.7 k/uL (0-1.0); Monocytes % (A) 5 %; Neutrophils # (A) 13.4 k/uL (1.3-7.7); Neutrophils % (A) 85 %; Platelet Count 178 k/uL (150-450); RBC 4.03 m/uL (3.80-5.40); RDW 14.7 % (11.5-15.5); WBC 15.8 k/uL (3.8-10.6)
[2018-08-21] MEDS: PIPERACILLIN-TAZOBACTAM 3.375 GM in SODIUM CHLORIDE 0.9% 100 ML IVPB SCH ×2 (09:53→15:53)
[2018-08-21 10:04] LABS: African American GFR (CKD) >90 (>60 ml/min/1.73 sqM); Anion Gap 8 mmol/L; Blood Urea Nitrogen 13 mg/dL (7-17); Calcium 8.6 mg/dL (8.4-10.2); Carbon Dioxide 25 mmol/L (22-30); Chloride 104 mmol/L (98-107); Glucose 104 mg/dL (74-99); Potassium 3.4 mmol/L (3.5-5.1); Sodium 137 mmol/L (137-145)
--- NOTE | 2018-08-21 10:55 | P.PN ---
<Christine Centeno A - Last Filed: 08/21/18 10:49> Subjective Progress Note Date: 08/21/18 CHIEF COMPLAINT: Abdominal pain, vomiting blood HISTORY OF PRESENT ILLNESS: Patient is status post EGD revealing recent upper GI bleed from gastrojejunal ulceration without active bleeding. Patient examined this morning at the bedside. She reports mild epigastric pain but states it is improving. She denies nausea or vomiting. No further episodes of hematemesis. WBC trending downward. 15.8 today. Hemoglobin 12.0. She is afebrile. PHYSICAL EXAM: VITAL SIGNS: Reviewed GENERAL: Well-developed in no acute distress. Thin. HEENT: No sclera icterus. Extraocular movements grossly intact. Head is atraumatic, normocephalic. Hears conversational speech. No nasal drainage. NECK: Supple without lymphadenopathy. CHEST: Non-labored respirations and equal bilateral excursions. CARDIOVASCULAR: Regular rate with regular rhythm. Palpable 2+ radial pulses. ABDOMEN: Soft. Nondistended. Mild tenderness upon palpation of epigastric region. Positive bowel sounds. MUSCULOSKELETAL: No clubbing, cyanosis or edema. NEUROLOGIC: No focal or lateralizing signs. Cranial nerves II through XII grossly intact. PSYCH: Appropriate affect. Alert and oriented to person, place and time. SKIN: Well perfused. Good skin turgor. ASSESSMENT: 1. Hematemesis with epigastric pain, status post EGD revealing gastrojejunal ulceration without active bleeding 2. Unintentional weight loss 3. History of gastric bypass, October 2015 4. Leukocytosis 5. Mildly elevated liver enzymes, likely secondary to daily acetaminophen use 6. Status post valvular replacement with history of hypertensive heart disease 7. History of Shipman's esophagus 8. Gastroesophageal reflux disease 9. Nicotine dependence 10. Recent back surgery, July 2018 PLAN: 1. Continue full liquid diet 2. Continue Protonix and Carafate 3. Abstinence from nicotine strongly encouraged Nurse practitioner note has been reviewed by physician. Signing provider agrees with the documented findings, assessment, and plan of care. Objective - Vital Signs Vital signs: Vital Signs Temp 98.3 F 08/21/18 08:12 Pulse 103 H 08/21/18 08:12 Resp 16 08/21/18 08:12 BP 169/105 08/21/18 08:12 Pulse Ox 97 08/21/18 08:12 Intake & Output 08/20/18 08/21/18 08/21/18 18:59 06:59 18:59 Intake Total 180 Output Total 301 Balance 180 -301 Weight 52.7 kg 52.7 kg Intake: IV 20 Oral 160 Output: Urine/Stool Mix 1 Emesis 300 Other: Voiding Method Toilet Toilet Bedside Commode Bedside Commode # Voids 1 2 - Labs CBC & Chem 7: 08/21/18 08:43 08/21/18 08:43 Labs: Abnormal Lab Results - Last 24 Hours (Table) 08/20/18 08/21/18 08/21/18 Range/Units 13:15 08:43 08:43 WBC 15.8 H (3.8-10.6) k/uL Neutrophils # 13.4 H (1.3-7.7) k/uL Potassium 3.4 L (3.5-5.1) mmol/L Glucose 104 H (74-99) mg/dL Urine Ketones Trace H (Negative) Ur Leukocyte Esterase Trace H (Negative) Urine Mucus Rare H (None) /hpf Assessment and Plan (1) Gastrojejunal ulcer Current Visit: Yes Status: Acute Code(s): K28.9 - GASTROJEJUNAL ULCER, UNSP ACUTE OR CHR, W/O HEMOR OR PERF SNOMED Code(s): 70502237 (2) Hematemesis Current Visit: Yes Status: Acute Code(s): K92.0 - HEMATEMESIS SNOMED Code(s): 2450403 (3) Abdominal pain Current Visit: No Status: Acute Code(s): R10.9 - UNSPECIFIED ABDOMINAL PAIN SNOMED Code(s): 29256377 (4) Gastroesophageal reflux disease Current Visit: No Status: Acute Code(s): K21.9 - GASTRO-ESOPHAGEAL REFLUX DISEASE WITHOUT ESOPHAGITIS SNOMED Code(s): 136100893 (5) Nausea & vomiting Current Visit: No Status: Acute Code(s): R11.2 - NAUSEA WITH VOMITING, UNSPECIFIED SNOMED Code(s): 94168114 (6) S/P gastric bypass Current Visit: No Status: Acute Code(s): Z98.84 - BARIATRIC SURGERY STATUS SNOMED Code(s): 323514931 (7) Barretts esophagus Current Visit: No Status: Chronic Code(s): K22.70 - SHIPMAN'S ESOPHAGUS WITHOUT DYSPLASIA SNOMED Code(s): 290449777 <Rayne Fleming N - Last Filed: 08/21/18 17:06> Subjective Patient seen and evaluated. She still reports nausea and vomiting dark emesis. On review of medical reconciliation, patient is still on medications vitamin E, Effexor, multivitamin, vitamin D all of which increased risk of bleeding when using conjunction including gastrointestinal hemorrhage. I have discontinued these medications. Separately she reports diffuse abdominal pain. We'll obtain a CT of the abdomen and pelvis. For dehydration, recommend to 2 liter of IV normal saline bolus. We'll closely follow. Agree with continued hospitalization. Objective - Vital Signs Vital signs: Vital Signs Temp 98.4 F 08/21/18 11:34 Pulse 102 H 08/21/18 16:01 Resp 15 08/21/18 11:34 BP 159/95 08/21/18 11:34 Pulse Ox 97 08/21/18 11:34 Intake & Output 08/20/18 08/21/18 08/21/18 18:59 06:59 18:59 Intake Total 180 Output Total 301 Balance 180 -301 Weight 52.7 kg 52.7 kg Intake: IV 20 Oral 160 Output: Urine/Stool Mix 1 Emesis 300 Other: Voiding Method Toilet Toilet Toilet Bedside Commode Bedside Commode Bedside Commode # Voids 1 2 - Labs CBC & Chem 7: 08/21/18 08:43 08/21/18 08:43 Labs: Abnormal Lab Results - Last 24 Hours (Table) 08/21/18 08/21/18 Range/Units 08:43 08:43 WBC 15.8 H (3.8-10.6) k/uL Neutrophils # 13.4 H (1.3-7.7) k/uL Potassium 3.4 L (3.5-5.1) mmol/L Glucose 104 H (74-99) mg/dL
[2018-08-21] MEDS: SUBOXONE SUBLINGUAL SCH ×2 (12:44→21:43)
[2018-08-21] MEDS ORDERED: SODIUM CHLORIDE 0.9% 2,000 ML IV ONE (16:34)
[2018-08-21] MEDS ORDERED: IOPAMIDOL-300 CONTRAST 30 ML VIAL (ORAL USE) PO PRN (16:35)
--- NOTE | 2018-08-21 17:06 | P.PN ---
Progress Note - Text Progress Note Date: 08/21/18 Patient seen and evaluated. She still reports nausea and vomiting dark emesis. On review of medical reconciliation, patient is still on medications vitamin E, Effexor, multivitamin, vitamin D all of which increased risk of bleeding when using conjunction including gastrointestinal hemorrhage. I have discontinued these medications. Separately she reports diffuse abdominal pain. We'll obtain a CT of the abdomen and pelvis. For dehydration, recommend to 2 liter of IV normal saline bolus. We'll closely follow. Agree with continued hospitalization.
--- NOTE | 2018-08-21 20:58 | P.PN ---
Progress Note - Text Progress Note Date: 08/21/18 CT of the abdomen and pelvis personally reviewed consistent with small bowel obstruction with intussusception. I called her nurse who confirmed that the patient is walking around and feels fine. She will be made NPO. NGT contraindicated in gastric bypass patient.
--- NOTE | 2018-08-21 23:49 | CT ---
EXAMINATION TYPE: CT abdomen pelvis w con DATE OF EXAM: 08/21/2018 COMPARISON: 04/02/2018 HISTORY: abdominal pain. hx of obstruction. recent ulcer. CT DLP: 436 mGycm Automated exposure control for dose reduction was used. TECHNIQUE: Helical acquisition of images was performed from the lung bases through the pelvis. CONTRAST: Performed with Oral Contrast and with IV Contrast, patient injected with 100 mL of Isovue 3 00. FINDINGS: VISUALIZED LUNG BASES AND PLEURAL SPACES: No acute findings. LIVER/GB: No significant abnormality is appreciated. PANCREAS: No significant abnormality is seen. SPLEEN: No significant abnormality is seen. ADRENALS: No significant abnormality is seen. KIDNEYS: No significant abnormality is seen. FREE AIR: No free air is visualized. RETROPERITONEAL ADENOPATHY: None visualized REPRODUCTIVE ORGANS: No significant abnormality is seen URINARY BLADDER: No significant abnormality is seen. PELVIC ADENOPATHY: None visualized. VASCULATURE: No acute vascular findings. OSSEOUS STRUCTURES: No significant abnormality is seen. BOWEL: The colon is collapsed. There is a 15 cm length intussusception present immediately above the urinary bladder, with severe sm all bowel obstruction as a result. The stomach is markedly dilated and the duodenum is prominently di stended, as is the entire jejunum and approximately half of the ileum. There is no portal venous gas at this time, and no pneumoperitoneum. Discussed results with the patient's nurse Dannielle, to ensure intact communications. IMPRESSION: HIGH-GRADE SMALL BOWEL OBSTRUCTION SECONDARY TO A 15 CM SMALL BOWEL INTUSSUSCEPTION.
[2018-08-22] MEDS: ONDANSETRON 4 MG/2 ML VIAL IVP PRN ×2 (00:42→10:20)
[2018-08-22] MEDS: PIPERACILLIN-TAZOBACTAM 3.375 GM in SODIUM CHLORIDE 0.9% 100 ML IVPB SCH ×4 (00:42→23:57)
[2018-08-22] MEDS: SODIUM CHLORIDE 0.9% 1,000 ML IV SCH ×3 (02:02→21:09)
--- NOTE | 2018-08-22 08:02 | P.PN ---
Subjective Progress Note Date: 08/22/18 CHIEF COMPLAINT: Gastrointestinal bleed HISTORY OF PRESENT ILLNESS: The patient is a 58-year-old female with history of hematemesis. She had intractable nausea and vomiting on admission. She had additional studies done yesterday. She reports some passage of flatus; however, not much. She denies any nausea. She last reports vomiting since yesterday prior to her CT scan. She feels better. ROS: No bowel movements. No fevers or chills. No new chest pain. No productive sputum PHYSICAL EXAM: VITAL SIGNS: Reviewed CONSTITUTIONAL: Well developed and in no acute distress. EYES: Conjuctivae without sclera icterus. Extraocular movements grossly intact. HEAD, EARS, NOSE, THROAT: Moist buccal mucosa. Head is atraumatic, normocephalic. Hears conversational speech. No nasal drainage. NECK: Supple. No thyroidomegaly. RESPIRATORY: Non-labored respirations and equal bilateral excursions. CARDIOVASCULAR: Palpable 2+ radial pulses. Regular rate. Regular rhythm. ABDOMEN: Generalized distention. Tender epigastrium. MUSCULOSKELETAL: No gross deformity of the lower extremities noted. No clubbing. No cyanosis. SKIN: Good skin turgor. Well perfused. NEUROLOGIC: Cranial nerves I through XII grossly intact. No focal or lateralizing signs. PSYCH: Appropriate affect. Alert and oriented to person, place and time. CLINCAL LABS: White blood cell count improved from over 20,000-12,000. STUDIES: CT of the abdomen and pelvis independently reviewed with the patient including small bowel obstruction and intussussception. ASSESSMENT: 1. Small bowel obstruction due to intussusception PLAN: 1. I did tell her the severity of the findings and will need surgical intervention to avoid strangulation. 2. Exploratory laparotomy and possible small bowel resection described. 3. Surgical plans described to patient and her daughter. 4. Benefits and risks described for emergency laparotomy. Objective - Vital Signs Vital signs: Vital Signs Temp 98.1 F 08/22/18 04:00 Pulse 91 08/22/18 04:00 Resp 16 08/22/18 04:00 BP 130/85 08/22/18 04:00 Pulse Ox 94 L 08/22/18 04:00 Intake & Output 08/21/18 08/22/18 08/22/18 18:59 06:59 18:59 Intake Total 600 3100 1000 Output Total 1 Balance 600 3100 999 Weight 52.7 kg 54.8 kg Intake: Intake, IV Titration 3100 1000 Amount IV Fluid Continuation 1, 1000 1000 000 ml @ 0 mls/hr IV .STK -[facility] Rx#:[id number] Piperacillin-Tazobactam 3 100 .375 gm In Sodium Chloride 0.9% 100 ml @ 25 mls/hr IVPB Q8HR [facility] Rx# :[id number] Sodium Chloride 0.9% 2, 2000 000 ml @ 999 mls/hr IV . Q2H1[facility] Rx#:[id number] Oral 600 Output: Urine 1 Other: Voiding Method Toilet Toilet Bedside Commode # Voids 2 - Labs CBC & Chem 7: 08/22/18 11:44 08/21/18 08:43 Labs: Abnormal Lab Results - Last 24 Hours (Table) 08/21/18 08/21/18 Range/Units 08:43 08:43 WBC 15.8 H (3.8-10.6) k/uL Neutrophils # 13.4 H (1.3-7.7) k/uL Potassium 3.4 L (3.5-5.1) mmol/L Glucose 104 H (74-99) mg/dL Assessment and Plan (1) Tobacco abuse Current Visit: Yes Status: Acute Code(s): Z72.0 - TOBACCO USE SNOMED Code(s): 727532826 (2) Tobacco abuse counseling Current Visit: Yes Status: Acute Code(s): Z71.6 - TOBACCO ABUSE COUNSELING SNOMED Code(s): 970352785 (3) Intussusception intestine Current Visit: Yes Status: Acute Code(s): K56.1 - INTUSSUSCEPTION SNOMED Code(s): 09936854 (4) Gastrojejunal ulcer Current Visit: Yes Status: Acute Code(s): K28.9 - GASTROJEJUNAL ULCER, UNSP ACUTE OR CHR, W/O HEMOR OR PERF SNOMED Code(s): 96547828 (5) Hematemesis Current Visit: Yes Status: Acute Code(s): K92.0 - HEMATEMESIS SNOMED Code(s): 2472069 (6) Dehydration Current Visit: No Status: Acute Code(s): E86.0 - DEHYDRATION SNOMED Code(s): 85889125 (7) Fibromyalgia Current Visit: No Status: Acute Code(s): M79.7 - FIBROMYALGIA SNOMED Code(s): 935929992 (8) S/P MVR (mitral valve replacement) Current Visit: No Status: Acute Code(s): Z95.2 - PRESENCE OF PROSTHETIC HEART VALVE SNOMED Code(s): 8067942190057 (9) S/P gastric bypass Current Visit: No Status: Acute Code(s): Z98.84 - BARIATRIC SURGERY STATUS SNOMED Code(s): 158132762 (10) SBO (small bowel obstruction) Current Visit: No Status: Acute Code(s): K56.69 - OTHER INTESTINAL OBSTRUCTION * DO NOT USE * SNOMED Code(s): 665183027 (11) Bariatric surgery status Current Visit: No Status: Chronic Code(s): Z98.84 - BARIATRIC SURGERY STATUS SNOMED Code(s): 579660766
[2018-08-22] MEDS ORDERED: ceFAZolin IN SWFI 2 GM/20 ML SYRINGE IVP ONE (08:15)
[2018-08-22] MEDS: SYMBICORT 160-4.5 MCG INHALER INHALATION SCH ×2 (08:33→20:40)
[2018-08-22] MEDS: IPRATROPIUM-ALBUTEROL 3 ML NEB INHALATION PRN ×2 (08:33→20:40)
[2018-08-22] MEDS: PANTOPRAZOLE 40 MG/10 ML VIAL IVP SCH ×2 (09:00→21:09)
[2018-08-22] MEDS: SUCRALFATE 1 GM TAB PO SCH ×2 (09:19→13:40)
[2018-08-22 11:58] LABS: Basophils % (A) 0 %; Eosinophils # (A) 0.1 k/uL (0-0.7); Eosinophils % (A) 1 %; HCT 35.1 % (34.0-46.0); HGB 11.7 gm/dL (11.4-16.0); Lymphocytes # (A) 1.4 k/uL (1.0-4.8); Lymphocytes % (A) 11 %; MCH 30.2 pg (25.0-35.0); MCHC 33.4 g/dL (31.0-37.0); MCV 90.2 fL (80.0-100.0); Mean Platelet Volume 7.9; Monocytes # (A) 0.6 k/uL (0-1.0); Monocytes % (A) 5 %; Neutrophils # (A) 10.4 k/uL (1.3-7.7); Neutrophils % (A) 82 %; Platelet Count 163 k/uL (150-450); RBC 3.89 m/uL (3.80-5.40); RDW 15.1 % (11.5-15.5); WBC 12.6 k/uL (3.8-10.6)
[2018-08-22 12:09] LABS: Partial Thromboplastin Time 23.6 sec (22.0-30.0); Prothrombin Time 10.4 sec (9.0-12.0)
[2018-08-22] MEDS: GABAPENTIN 300 MG CAP PO SCH ×2 (13:40→20:08)
[2018-08-22] MEDS: SIMETHICONE 40 MG/0.6 ML DROPS 2,000 MG/30 ML BOTTLE PO SCH ×4 (13:40→21:10)
[2018-08-22] MEDS: CALCIUM CARB-VIT D 500MG-200UN 1 EACH TAB PO SCH (13:40)
[2018-08-22] MEDS: SUBOXONE SUBLINGUAL SCH ×3 (14:24→20:05)
[2018-08-22] MEDS ORDERED: diphenhydrAMINE 50 MG/ML 1 ML VIAL IVP PRN (14:36)
[2018-08-22] MEDS ORDERED: NALOXONE 0.4 MG/ML 1 ML VIAL IV PRN (14:36)
[2018-08-22] MEDS ORDERED: DEXAMETHASONE SOD PHOSPHATE 10 MG/ML 1 ML VIAL IV ONE (14:38)
[2018-08-22] MEDS ORDERED: LIDOCAINE 1% 20 ML VIAL (10MG/ML) FOR IV START INTRADERMA PRN (14:38)
[2018-08-22] MEDS ORDERED: HYDROmorphone 0.5 MG/0.5 ML SYRINGE IVP PRN (14:38)
[2018-08-22] MEDS ORDERED: ONDANSETRON 4 MG/2 ML VIAL IVP ONE (14:38)
[2018-08-22] MEDS ORDERED: GLYCOPYRROLATE 0.2 MG/ML 2 ML VIAL ONE (14:53)
[2018-08-22] MEDS ORDERED: ROCURONIUM BROMIDE 10 MG/ML 10 ML VIAL IV ONE (14:53)
[2018-08-22] MEDS ORDERED: PROPOFOL 10 MG/ML 20 ML VIAL IV ONE (14:53)
[2018-08-22] MEDS ORDERED: NEOSTIGMINE 1 MG/ML 10 ML VIAL ONE (14:53)
[2018-08-22] MEDS ORDERED: IV FLUID CONTINUATION 500 ML IV ONE (14:53)
[2018-08-22] MEDS ORDERED: PHENYLEPHRINE-0.9% NACL SYG 1 MG/10 ML SYRINGE ONE (14:53)
[2018-08-22] MEDS ORDERED: SUCCINYLCHOLINE CHLORIDE 100 MG/5 ML SYR IV ONE (14:53)
[2018-08-22] MEDS: ceFAZolin IN SWFI 2 GM/20 ML SYRINGE IVP ONE ×2 (15:02→15:20)
[2018-08-22] MEDS ORDERED: LACTATED RINGERS 1,000 ML IV ONE (16:03)
[2018-08-22] MEDS: ROPIVACAINE 400 MG, fentaNYL (PF) 625 MCG in SODIUM CHLORIDE 0.9% 158 ML EPIDURAL PRN ×2 (17:22→17:57)
--- NOTE | 2018-08-22 17:25 | P.OP ---
Date of Procedure: 08/22/18 Surgeon: Rayne Fleming Description of Procedure: SURGEON: RAYNE FLEMING MD TOPPIECE CHOPPER: NONE. PREOPERATIVE DIAGNOSIS: 1. Acute small bowel obstruction 2. Gastrointestinal bleed 3. Status post gastric bypass. 4. Restless leg syndrome. 5. History of active tobacco use 6. History of gout. 7. History of Hernandez's esophagus. 8. Chronic obstructive pulmonary disease. 9. Iron deficiency anemia. 10. Hypertensive heart disease, resolved. 11. Status post valvular replacement. POSTOPERATIVE DIAGNOSIS: 1. Jejunal jejunal intussusception with small bowel obstruction 2. Internal hernia 3. Abdominal ascites 4. Gastrointestinal bleed 5. Status post gastric bypass. 6. Restless leg syndrome. 7. History of active tobacco use 8. History of gout. 9. History of Hernandez's esophagus. 10. Chronic obstructive pulmonary disease. 11. Iron deficiency anemia. 12. Hypertensive heart disease, resolved. 13. Status post valvular replacement. 14. Abdominal ascites. OPERATION: 1. Open exploratory laparotomy with reduction of jejunal jejunal intussusception 2. Closure of internal hernia jejunojejunostomy 3. Drainage of abdominal ascites 1 L Anesthesia: GETA, epidural Estimated Blood Loss (ml): 5 Pathology: none sent Condition: stable Disposition: floor Complications: None Operative Findings: 1. Jejunal jejunal intussusception 5 cm distal to the jejunojejunostomy of gastric bypass 2. Intussusception of 15 cm completely reduced without necrosis 3. Jejunal jejunal mesenteric defect closed using interrupted 3-0 silk 3 4. Severe small bowel dilation over 5-6 cm involving biliopancreatic limb and Pavan limb 5. Nasogastric tube placed distal pavan limb over 50 cm and secured 6. Over 2 L of dark bile nasogastric contents aspirated from distal obstruction involving the biliopancreatic limb and Pavan limb 7. Complete decompression of the Pavan limb and stomach including biliopancreatic limb 8. All small bowel viable after reduction of intussusception 9. No lead point or lymphoma or malignancy identified 10. No peritoneal studding or evidence of malignancy 11. Ischemic and edematous small bowel 15 cm to 30 cm consistent with chronic small bowel obstruction completely resolved 12. Abdominal ascites clear over 1 L aspirated from the abdomen INDICATIONS: The patient is a 58-year-old female who presents with gastrointestinal bleed, acute small bowel obstruction, and CT finding of intussception. Surgical intervention was advised with exploratory laparotomy possible bowel resection. Benefits and risks of the procedures were discussed. Informed consent was obtained. DESCRIPTION: The patient was brought to the operating room. An epidural was placed per anesthesia. After general induction, a Ma catheter was placed. The abdomen was prepped and draped in standard sterile fashion. Ioban draping was also placed. Prior to incision, a timeout protocol was confirmed with surgical team regarding patient's name including procedures to be performed. Preoperative medications were confirmed. A #10 blade was used to enter along the epigastrium and extended down to the pubis. Carefully the abdomen was entered using electro- Bovie cautery. The small bowel was grossly dilated. Ascites of over 1000 mL was drained from the abdomen. Severe small bowel dilation over 5-6 cm involving biliopancreatic limb and Pavan limb was found. The small bowel was eviscerated from the abdomen. Jejunal jejunal intussusception 5 cm distal to the jejunojejunostomy of gastric bypass was found. An intussusception of 15 cm was found and gently milked using push technique with moderate edema and fluid released. The intussusception was completely reduced without necrosis. A jejunal jejunal mesenteric defect of internal hernia was closed using interrupted 3-0 silk 3. A nasogastric tube was placed distal in the pavan limb over 50 cm and secured. Over 2 L of dark bile was aspirated from the dilated bowel using the nasogastric. The obstruction involving the biliopancreatic limb and Pavan limb was decompressed. Complete decompression of the Pavan limb and stomach including biliopancreatic limb was performed. All small bowel was viable after reduction of intussusception. No lead point or lymphoma or malignancy was identified. No peritoneal studding or evidence of malignancy was found. Ischemic and edematous small bowel 15 cm to 30 cm reduced was consistent with chronic small bowel obstruction completely resolved. Hemostasis was excellent throughout the out the entire case. Blood loss was less than 5 mL. All sponge counts were verified as correct. The abdomen was closed using double stranded 0 PDS. The subcutaneous tissue was irrigated in a similar fashion. An Optifoam incisional length dressing was placed. At the end of the procedure, needle, sponge, and instrument count had been verified correct by the dialysis chief equipment technician. The patient was sent to the postanesthesia care unit in stable condition. Intraoperative findings were described to the patient's family who were very pleased with the level of care. An intraoperative photograph was also sent to the patient's family as well. Postoperative recovery in detail was described.
[2018-08-22] MEDS: ACETAMINOPHEN IV (For NPO) 1,000 MG in EMPTY BAG 1 BAG IVPB SCH ×2 (19:30→23:56)
[2018-08-22] MEDS: LACTATED RINGERS 1,000 ML IV SCH (20:05)
[2018-08-23] MEDS: SODIUM CHLORIDE 0.9% 1,000 ML IV SCH ×3 (04:47→17:12)
[2018-08-23] MEDS: ACETAMINOPHEN IV (For NPO) 1,000 MG in EMPTY BAG 1 BAG IVPB SCH ×2 (05:36→13:51)
--- NOTE | 2018-08-23 07:17 | P.PN ---
Progress Note - Text Progress Note Date: 08/23/18 Pt sleeping comfortably. Complaining of some pain with movement. Denies headache, pruritis, or weakness. Epidural @ 8 ml/hr. Epidural site clean and dry. A/P POD #1 s/p exploratory laparotomy - epidural to 10 ml/hr - tylenol adjunct
[2018-08-23] MEDS: PIPERACILLIN-TAZOBACTAM 3.375 GM in SODIUM CHLORIDE 0.9% 100 ML IVPB SCH ×2 (07:55→18:27)
[2018-08-23] MEDS: SYMBICORT 160-4.5 MCG INHALER INHALATION SCH ×2 (08:02→19:38)
[2018-08-23 08:16] LABS: Basophils % (A) 0 %; Eosinophils % (A) 0 %; HCT 32.6 % (34.0-46.0); HGB 10.6 gm/dL (11.4-16.0); Lymphocytes # (A) 1.3 k/uL (1.0-4.8); Lymphocytes % (A) 10 %; MCH 29.7 pg (25.0-35.0); MCHC 32.5 g/dL (31.0-37.0); MCV 91.5 fL (80.0-100.0); Mean Platelet Volume 8.3; Monocytes # (A) 0.7 k/uL (0-1.0); Monocytes % (A) 6 %; Neutrophils # (A) 10.1 k/uL (1.3-7.7); Neutrophils % (A) 82 %; Platelet Count 158 k/uL (150-450); RBC 3.56 m/uL (3.80-5.40); RDW 14.2 % (11.5-15.5); WBC 12.4 k/uL (3.8-10.6)
[2018-08-23 08:26] LABS: ALT 28 U/L (9-52); AST 15 U/L (14-36); African American GFR (CKD) >90 (>60 ml/min/1.73 sqM); Albumin 2.2 g/dL (3.5-5.0); Alkaline Phosphatase 47 U/L (38-126); Anion Gap 11 mmol/L; Blood Urea Nitrogen 12 mg/dL (7-17); Calcium 7.7 mg/dL (8.4-10.2); Carbon Dioxide 17 mmol/L (22-30); Chloride 109 mmol/L (98-107); Glucose 58 mg/dL (74-99); Magnesium 1.7 mg/dL (1.6-2.3); Phosphorus 3.3 mg/dL (2.5-4.5); Potassium 3.1 mmol/L (3.5-5.1); Sodium 137 mmol/L (137-145); Total Bilirubin 0.4 mg/dL (0.2-1.3); Total Protein 4.2 g/dL (6.3-8.2)
[2018-08-23] MEDS: SUBOXONE SUBLINGUAL SCH ×2 (09:08→13:02)
[2018-08-23] MEDS: ENOXAPARIN 30 MG/0.3 ML SYRINGE SQ SCH (09:14)
[2018-08-23] MEDS: SCOPOLAMINE 1.5MG/72HR PATCH TRANSDERM SCH (09:15)
[2018-08-23] MEDS: SIMETHICONE 40 MG/0.6 ML DROPS 2,000 MG/30 ML BOTTLE PO SCH ×4 (09:15→21:45)
[2018-08-23] MEDS: PANTOPRAZOLE 40 MG/10 ML VIAL IVP SCH ×2 (09:15→21:44)
[2018-08-23] MEDS ORDERED: Potassium Replacement Protocol 1 EACH MISC MISCELLANE PRN (10:30)
--- NOTE | 2018-08-23 10:58 | P.PN ---
Subjective Progress Note Date: 08/23/18 CHIEF COMPLAINT: Gastrointestinal bleed with intussusception HISTORY OF PRESENT ILLNESS: The patient is a 58-year-old female status post exploratory laparotomy with reduction of intestinal intussusception. She has no passage of flatus but her abdominal pain prior to surgery is completely resolved. Abdominal distention is completely resolved. She now has a large appetite and wanting to eat. She is tolerating ice chips. ROS: No bowel movements. No fevers or chills. No new chest pain. No productiv e sputum PHYSICAL EXAM: VITAL SIGNS: Reviewed CONSTITUTIONAL: Well developed and in no acute distress. EYES: Conjuctivae without sclera icterus. Extraocular movements grossly intact. HEAD, EARS, NOSE, THROAT: Moist buccal mucosa. Head is atraumatic, normocephalic. Hears conversational speech. No nasal drainage. NECK: Supple. No thyroidomegaly. RESPIRATORY: Non-labored respirations and equal bilateral excursions. CARDIOVASCULAR: Palpable 2+ radial pulses. Regular rate. Regular rhythm. ABDOMEN: Scaphoid and flat, abdominal binder present. NG tube with dark bilious. Dressing clean dry and intact. MUSCULOSKELETAL: No gross deformity of the lower extremities noted. No clubbing. No cyanosis. SKIN: Good skin turgor. Well perfused. NEUROLOGIC: Cranial nerves I through XII grossly intact. No focal or lateralizing signs. PSYCH: Appropriate affect. Alert and oriented to person, place and time. CLINCAL LABS: White blood cell count persists at over 12,000. ASSESSMENT: 1. Small bowel obstruction due to intussusception PLAN: 1. Continue murphy for epidural protocol. 2. Will discontinue NGT and discharge home once she has flatus. 3. Clear liquid diet. Objective - Vital Signs Vital signs: Vital Signs Temp 98.1 F 08/23/18 04:00 Pulse 99 08/23/18 08:10 Resp 16 08/23/18 08:10 BP 117/72 08/23/18 04:00 Pulse Ox 96 08/23/18 04:00 Intake & Output 08/22/18 08/23/18 08/23/18 18:59 06:59 18:59 Intake Total 2581 2210 Output Total 406 1010 Balance 2175 1200 Weight 66 kg Intake: IV 1581 Intake, IV Titration 1000 2200 Amount ACETAMINOPHEN IV (For NPO 400 ) 1,000 mg In Empty Bag 1 bag @ 400 mls/hr IVPB Q6HR [facility] Rx#:[id number] IV Fluid Continuation 1, 1000 000 ml @ 0 mls/hr IV .STK -[facility] Rx#:[id number] Piperacillin-Tazobactam 3 100 .375 gm In Sodium Chloride 0.9% 100 ml @ 25 mls/hr IVPB Q8HR [facility] Rx# :[id number] Sodium Chloride 0.9% 1, 1700 000 ml @ 125 mls/hr IV . Q8H [facility] Rx#:[id number] Oral 0 10 Output: Gastric Drainage 30 Urine 401 980 Estimated Blood Loss 5 Other: Voiding Method Toilet Indwelling Catheter Indwelling Catheter # Voids 3 - Labs CBC & Chem 7: 08/23/18 07:55 08/23/18 07:55 Labs: Abnormal Lab Results - Last 24 Hours (Table) 08/22/18 08/23/18 08/23/18 Range/Units 11:44 07:55 07:55 WBC 12.6 H 12.4 H (3.8-10.6) k/uL RBC 3.56 L (3.80-5.40) m/uL Hgb 10.6 L (11.4-16.0) gm/dL Hct 32.6 L (34.0-46.0) % Neutrophils # 10.4 H 10.1 H (1.3-7.7) k/uL Potassium 3.1 L (3.5-5.1) mmol/L Chloride 109 H (98-107) mmol/L Carbon Dioxide 17 L (22-30) mmol/L Glucose 58 L (74-99) mg/dL Calcium 7.7 L (8.4-10.2) mg/dL Total Protein 4.2 L (6.3-8.2) g/dL Albumin 2.2 L (3.5-5.0) g/dL Assessment and Plan (1) Tobacco abuse Current Visit: Yes Status: Acute Code(s): Z72.0 - TOBACCO USE SNOMED Code(s): 195056347 (2) Tobacco abuse counseling Current Visit: Yes Status: Acute Code(s): Z71.6 - TOBACCO ABUSE COUNSELING SNOMED Code(s): 556408510 (3) Intussusception intestine Current Visit: Yes Status: Acute Code(s): K56.1 - INTUSSUSCEPTION SNOMED Code(s): 82354294 (4) Gastrojejunal ulcer Current Visit: Yes Status: Acute Code(s): K28.9 - GASTROJEJUNAL ULCER, UNSP ACUTE OR CHR, W/O HEMOR OR PERF SNOMED Code(s): 41291246 (5) Hematemesis Current Visit: Yes Status: Acute Code(s): K92.0 - HEMATEMESIS SNOMED Code(s): 4003769 (6) Dehydration Current Visit: No Status: Acute Code(s): E86.0 - DEHYDRATION SNOMED Code(s): 29584768 (7) Fibromyalgia Current Visit: No Status: Acute Code(s): M79.7 - FIBROMYALGIA SNOMED Code(s): 411224936 (8) S/P MVR (mitral valve replacement) Current Visit: No Status: Acute Code(s): Z95.2 - PRESENCE OF PROSTHETIC HEART VALVE SNOMED Code(s): 2399564671898 (9) S/P gastric bypass Current Visit: No Status: Acute Code(s): Z98.84 - BARIATRIC SURGERY STATUS SNOMED Code(s): 668750615 (10) SBO (small bowel obstruction) Current Visit: No Status: Acute Code(s): K56.69 - OTHER INTESTINAL OBSTRUCTION * DO NOT USE * SNOMED Code(s): 882881250 (11) Bariatric surgery status Current Visit: No Status: Chronic Code(s): Z98.84 - BARIATRIC SURGERY STATUS SNOMED Code(s): 841531002
[2018-08-23] MEDS ORDERED: POTASSIUM BICARBONATE/CIT AC 20 MEQ TABLET.EFF NG-TUBE SCH (11:00)
[2018-08-23] MEDS: LACTATED RINGERS 1,000 ML IV SCH (11:39)
[2018-08-23] MEDS: POTASSIUM CHLORIDE 10 MEQ in WATER FOR INJECTION 1 100ML.BAG IVPB SCH ×4 (11:56→18:27)
[2018-08-23] MEDS: MAGNESIUM SULFATE-D5W PMX 1 GM in DEXTROSE/WATER 1 100ML.BAG IVPB SCH ×3 (12:57→21:45)
[2018-08-23] MEDS: IPRATROPIUM-ALBUTEROL 3 ML NEB INHALATION PRN ×2 (15:16→19:38)
[2018-08-23] MEDS: ROPIVACAINE 400 MG, fentaNYL (PF) 625 MCG in SODIUM CHLORIDE 0.9% 158 ML EPIDURAL PRN (16:11)
[2018-08-23] MEDS: LORazepam 2 MG/ML INJ IV PRN (23:01)
[2018-08-24] MEDS: PIPERACILLIN-TAZOBACTAM 3.375 GM in SODIUM CHLORIDE 0.9% 100 ML IVPB SCH ×3 (00:04→17:54)
--- NOTE | 2018-08-24 01:31 | P.PN ---
Subjective Progress Note Date: 08/21/18 Principal diagnosis: Upper GI bleed Patient is a 58-year-old female with a known history of gastric bypass surgery, Hernandez's esophagus-surgically removed, chronic back pain and neck pain status post removal of nevus stimulator recently at [facility], chronic pain syndrome and on Suboxone at home, GERD, hypertension, osteoarthritis, COPD, migraine headaches and other multiple medical problems came to ER with complaints of nausea vomiting and upper abdominal pain. Patient is having maroon-colored vomitings since yesterday. Patient is also having worsening epigastric abdominal pain which made her to come to the hospital. Denied any dark-colored stools or melena. Denied any complaints of chest pain or shortness of breath. No cough or sputum production. Patient says that she was having some fever as well at home. Patient has been afebrile while in the hospital. No headache or dizziness or lightheadedness. Denied any [id number] pain medication use including Motrin. Patient does take Tylenol arthritis for pain. Denied any recent illnesses or sick contacts. No diarrhea. Hemoglobin 16.8 on admission. WBC 20 08/20/2018 Patient is still complaining of abdominal pain and back pain. Patient is status post EGD showed Recent upper GI bleed from gastrojejunal ulceration without active bleeding. Patient is still having leukocytosis with WBC count 20.9. Hemoglobin 12.8 No fever no chills. Cultures have been negative so far. Patient is being continued on PPI and Carafate. Continued on IV pain medications. IV fluids and general surgery is on board. No complains of chest pain or shortness of breath. Chest x-ray showed no suspicious infiltrates. UA negative for infection. 08/21/2018 Patient is still complaining of abdominal pain today. CT of abdomen pelvis showed small bowel obstruction with intussusception. Currently patient is kept nothing by mouth and general surgery is planning for or tomorrow. No fever no chills. Current with IV hydration and PPI. Current medications reviewed. Objective - Vital Signs Vital signs: Vital Signs Temp 98.4 F 08/21/18 11:34 Pulse 102 H 08/21/18 16:01 Resp 15 08/21/18 16:00 BP 159/95 08/21/18 11:34 Pulse Ox 97 08/21/18 11:34 Intake & Output 08/21/18 08/21/18 08/22/18 06:59 18:59 06:59 Intake Total 600 Output Total 301 Balance -301 600 Weight 52.7 kg 52.7 kg Intake: Oral 600 Output: Urine/Stool Mix 1 Emesis 300 Other: Voiding Method Toilet Toilet Bedside Commode Bedside Commode # Voids 2 - Exam PHYSICAL EXAMINATION: Patient is lying in the bed comfortably, no acute distress, awake alert and oriented.. HEENT: Normocephalic. Neck is supple. Pupils reactive. Nostrils clear. Oral cavity is moist. Ears reveal no drainage. Neck reveals no JVD, carotid bruits, or thyromegaly. CHEST EXAMINATION: Trachea is central. Symmetrical expansion. Bibasilar diminished air entry. Crackles at the base.. CARDIAC: Normal S1, S2 with no gallops. No murmurs ABDOMEN: Soft. Epigastric tenderness. Bowel sounds normal. No organomegaly. No abdominal bruits. Extremities: reveal no edema. No clubbing or cyanosis Neurologically awake, alert, oriented x3 with well-coordinated movements. No focal deficits noted Skin: No rash or skin lesions. Psychiatric: Coperative. Nonsuicidal Musculoskeletal: No joint swelling or deformity. Normal range of motion. - Labs CBC & Chem 7: 08/23/18 07:55 08/23/18 07:55 Labs: Abnormal Lab Results - Last 24 Hours (Table) 08/21/18 08/21/18 Range/Units 08:43 08:43 WBC 15.8 H (3.8-10.6) k/uL Neutrophils # 13.4 H (1.3-7.7) k/uL Potassium 3.4 L (3.5-5.1) mmol/L Glucose 104 H (74-99) mg/dL Assessment and Plan Assessment: Acute upper GI bleed. Status post EGD. No active bleeding noted. Hemoglobin stable. Acute blood loss anemia secondary to GI bleed small bowel obstruction with intussusception. OR tomorrow. History of gastric bypass surgery in 2016 GERD Leukocytosis suspected aspiration. Elevated ALT level. COPD Chronic back pain with history of back surgery and recent removal of spinal cord stimulator at [facility]. History of aortic valve replacement Hypertension Osteoarthritis History of Hernandez's esophagus surgically removed Chronic pain syndrome Nicotine dependence Depression Unintentional Weight loss with mild to moderate protein calorie malnutrition DVT prophylaxis with SCDs Plan: Patient will be continued on IV fluids and Protonix IV, Carafate and monitor H&H. Chest x-ray and UA negative.. Continue with Zosyn for possible aspiration pneumonia. Patient also says that she had subjective fevers at home. Continue with breathing treatments and follow up closely. Follow liver enzymes, normalized now. Patient was seen by general surgery. Status post EGD. Continue the pain management. Further recommendations based on the clinical course. Prognosis is guarded. Time with Patient: Greater than 30
--- NOTE | 2018-08-24 01:33 | P.PN ---
Subjective Progress Note Date: 08/22/18 Principal diagnosis: Upper GI bleed Patient is a 58-year-old female with a known history of gastric bypass surgery, Hernandez's esophagus-surgically removed, chronic back pain and neck pain status post removal of nevus stimulator recently at [facility], chronic pain syndrome and on Suboxone at home, GERD, hypertension, osteoarthritis, COPD, migraine headaches and other multiple medical problems came to ER with complaints of nausea vomiting and upper abdominal pain. Patient is having maroon-colored vomitings since yesterday. Patient is also having worsening epigastric abdominal pain which made her to come to the hospital. Denied any dark-colored stools or melena. Denied any complaints of chest pain or shortness of breath. No cough or sputum production. Patient says that she was having some fever as well at home. Patient has been afebrile while in the hospital. No headache or dizziness or lightheadedness. Denied any [id number] pain medication use including Motrin. Patient does take Tylenol arthritis for pain. Denied any recent illnesses or sick contacts. No diarrhea. Hemoglobin 16.8 on admission. WBC 20 08/20/2018 Patient is still complaining of abdominal pain and back pain. Patient is status post EGD showed Recent upper GI bleed from gastrojejunal ulceration without active bleeding. Patient is still having leukocytosis with WBC count 20.9. Hemoglobin 12.8 No fever no chills. Cultures have been negative so far. Patient is being continued on PPI and Carafate. Continued on IV pain medications. IV fluids and general surgery is on board. No complains of chest pain or shortness of breath. Chest x-ray showed no suspicious infiltrates. UA negative for infection. 08/21/2018 Patient is still complaining of abdominal pain today. CT of abdomen pelvis showed small bowel obstruction with intussusception. Currently patient is kept nothing by mouth and general surgery is planning for or tomorrow. No fever no chills. Current with IV hydration and PPI. 08/22/2018 Patient underwent Laparotomy with reduction of jejunal jejunal intussusception, closure of internal hernia jejunojejunostomy, drainage of abdominal ascites 1 L . currently patient is drowsy and could not provide much history. Abdominal pain is controlled with medications. Otherwise continued on IV hydration and PPI. No fever no chills. Leukocytosis is improving. General surgery is on board. Current medications reviewed. Objective - Vital Signs Vital signs: Vital Signs Temp 98.3 F 08/22/18 20:00 Pulse 92 08/22/18 20:52 Resp 18 08/22/18 20:00 BP 112/60 08/22/18 20:00 Pulse Ox 97 08/22/18 20:00 Intake & Output 08/22/18 08/22/18 08/23/18 06:59 18:59 06:59 Intake Total 3100 2581 Output Total 406 Balance 3100 2175 Weight 54.8 kg Intake: IV 1581 Intake, IV Titration 3100 1000 Amount IV Fluid Continuation 1, 1000 1000 000 ml @ 0 mls/hr IV .STK -[facility] ONE Rx#:[id number] Piperacillin-Tazobactam 3 100 .375 gm In Sodium Chloride 0.9% 100 ml @ 25 mls/hr IVPB Q8HR [facility] Rx# :[id number] Sodium Chloride 0.9% 2, 2000 000 ml @ 999 mls/hr IV . Q2H1M ONE Rx#:[id number] Oral 0 Output: Urine 401 Estimated Blood Loss 5 Other: Voiding Method Toilet Toilet # Voids 2 3 - Exam PHYSICAL EXAMINATION: Patient is lying in the bed comfortably, no acute distress, awake alert and oriented.. HEENT: Normocephalic. Neck is supple. Pupils reactive. Nostrils clear. Oral cavity is moist. Ears reveal no drainage. Neck reveals no JVD, carotid bruits, or thyromegaly. CHEST EXAMINATION: Trachea is central. Symmetrical expansion. Bibasilar diminished air entry. Crackles at the base.. CARDIAC: Normal S1, S2 with no gallops. No murmurs ABDOMEN: Soft. Surgical site is packed at this time.. Bowel sounds normal. No organomegaly. No abdominal bruits. Extremities: reveal no edema. No clubbing or cyanosis Neurologically awake, alert, oriented x3 with well-coordinated movements. No focal deficits noted Skin: No rash or skin lesions. Psychiatric: Coperative. Nonsuicidal Musculoskeletal: No joint swelling or deformity. Normal range of motion. - Labs CBC & Chem 7: 08/23/18 07:55 08/23/18 07:55 Labs: Abnormal Lab Results - Last 24 Hours (Table) 08/22/18 Range/Units 11:44 WBC 12.6 H (3.8-10.6) k/uL Neutrophils # 10.4 H (1.3-7.7) k/uL Assessment and Plan Assessment: Acute upper GI bleed. Status post EGD. No active bleeding noted. Hemoglobin stable. Acute blood loss anemia secondary to GI bleed small bowel obstruction with intussusception. Status post Laparotomy with reduction of jejunal jejunal intussusception, closure of internal hernia jejunojejunostomy, drainage of abdominal ascites 1 L. History of gastric bypass surgery in 2016 GERD Leukocytosis suspected aspiration. Elevated ALT level. COPD Chronic back pain with history of back surgery and recent removal of spinal cord stimulator at [facility]. History of aortic valve replacement Hypertension Osteoarthritis History of Hernandez's esophagus surgically removed Chronic pain syndrome Nicotine dependence Depression Unintentional Weight loss with mild to moderate protein calorie malnutrition DVT prophylaxis with SCDs Plan: Patient will be continued on IV fluids and Protonix IV, Carafate and monitor H&H. Chest x-ray and UA negative.. Continue with Zosyn for possible aspiration pneumonia. Patient also says that she had subjective fevers at home. Continue with breathing treatments and follow up closely. Follow liver enzymes, normalized now. Patient was seen by general surgery. Status post EGD. Continue the pain management. Further recommendations based on the clinical course. Prognosis is guarded. Time with Patient: Greater than 30
--- NOTE | 2018-08-24 01:37 | P.PN ---
Subjective Progress Note Date: 08/23/18 Principal diagnosis: Upper GI bleed Patient is a 58-year-old female with a known history of gastric bypass surgery, Hernandez's esophagus-surgically removed, chronic back pain and neck pain status post removal of nevus stimulator recently at [facility], chronic pain syndrome and on Suboxone at home, GERD, hypertension, osteoarthritis, COPD, migraine headaches and other multiple medical problems came to ER with complaints of nausea vomiting and upper abdominal pain. Patient is having maroon-colored vomitings since yesterday. Patient is also having worsening epigastric abdominal pain which made her to come to the hospital. Denied any dark-colored stools or melena. Denied any complaints of chest pain or shortness of breath. No cough or sputum production. Patient says that she was having some fever as well at home. Patient has been afebrile while in the hospital. No headache or dizziness or lightheadedness. Denied any qazk-oho-aeferwa pain medication use including Motrin. Patient does take Tylenol arthritis for pain. Denied any recent illnesses or sick contacts. No diarrhea. Hemoglobin 16.8 on admission. WBC 20 08/20/2018 Patient is still complaining of abdominal pain and back pain. Patient is status post EGD showed Recent upper GI bleed from gastrojejunal ulceration without active bleeding. Patient is still having leukocytosis with WBC count 20.9. Hemoglobin 12.8 No fever no chills. Cultures have been negative so far. Patient is being continued on PPI and Carafate. Continued on IV pain medications. IV fluids and general surgery is on board. No complains of chest pain or shortness of breath. Chest x-ray showed no suspicious infiltrates. UA negative for infection. 08/21/2018 Patient is still complaining of abdominal pain today. CT of abdomen pelvis showed small bowel obstruction with intussusception. Currently patient is kept nothing by mouth and general surgery is planning for or tomorrow. No fever no chills. Current with IV hydration and PPI. 08/22/2018 Patient underwent Laparotomy with reduction of jejunal jejunal intussusception, closure of internal hernia jejunojejunostomy, drainage of abdominal ascites 1 L . currently patient is drowsy and could not provide much history. Abdominal pain is controlled with medications. Otherwise continued on IV hydration and PPI. No fever no chills. Leukocytosis is improving. General surgery is on board. 08/23/2018 Currently patient is on epidural and abdominal pains controlled. Patient did not have any bowel movement or passing flatus. Able to ambulate to the athroom. No fever no chills. Revisit 12.4. Continued on antibiotics in the form of Zosyn. No nausea vomiting. General surgery is following. Current medications reviewed. Objective - Vital Signs Vital signs: Vital Signs Temp 98.9 F 08/23/18 11:41 Pulse 90 08/23/18 15:26 Resp 16 08/23/18 11:41 BP 135/78 08/23/18 11:41 Pulse Ox 96 08/23/18 11:41 Intake & Output 08/22/18 08/23/18 08/23/18 18:59 06:59 18:59 Intake Total 2581 2210 220 Output Total 406 1010 600 Balance 2175 1200 -380 Weight 66 kg Intake: IV 1581 Intake, IV Titration 1000 2200 Amount ACETAMINOPHEN IV (For NPO 400 ) 1,000 mg In Empty Bag 1 bag @ 400 mls/hr IVPB Q6HR [facility] Rx#:[id number] IV Fluid Continuation 1, 1000 000 ml @ 0 mls/hr IV .STK -[facility] ONE Rx#:[id number] Piperacillin-Tazobactam 3 100 .375 gm In Sodium Chloride 0.9% 100 ml @ 25 mls/hr IVPB Q8HR [facility] Rx# :[id number] Sodium Chloride 0.9% 1, 1700 000 ml @ 125 mls/hr IV . Q8H [facility] Rx#:[id number] Oral 0 10 220 Output: Gastric Drainage 30 Urine 401 980 600 Estimated Blood Loss 5 Other: Voiding Method Toilet Indwelling Catheter Indwelling Catheter # Voids 3 3 - Exam PHYSICAL EXAMINATION: Patient is lying in the bed comfortably, no acute distress, awake alert and oriented.. HEENT: Normocephalic. Neck is supple. Pupils reactive. Nostrils clear. Oral cavity is moist. Ears reveal no drainage. Neck reveals no JVD, carotid bruits, or thyromegaly. CHEST EXAMINATION: Trachea is central. Symmetrical expansion. Bibasilar diminished air entry. Crackles at the base.. CARDIAC: Normal S1, S2 with no gallops. No murmurs ABDOMEN: Soft. Surgical site is packed at this time.. Bowel sounds normal. No organomegaly. No abdominal bruits. Extremities: reveal no edema. No clubbing or cyanosis Neurologically awake, alert, oriented x3 with well-coordinated movements. No focal deficits noted Skin: No rash or skin lesions. Psychiatric: Coperative. Nonsuicidal Musculoskeletal: No joint swelling or deformity. Normal range of motion. - Labs CBC & Chem 7: 08/23/18 07:55 08/23/18 07:55 Labs: Abnormal Lab Results - Last 24 Hours (Table) 08/23/18 08/23/18 Range/Units 07:55 07:55 WBC 12.4 H (3.8-10.6) k/uL RBC 3.56 L (3.80-5.40) m/uL Hgb 10.6 L (11.4-16.0) gm/dL Hct 32.6 L (34.0-46.0) % Neutrophils # 10.1 H (1.3-7.7) k/uL Potassium 3.1 L (3.5-5.1) mmol/L Chloride 109 H (98-107) mmol/L Carbon Dioxide 17 L (22-30) mmol/L Glucose 58 L (74-99) mg/dL Calcium 7.7 L (8.4-10.2) mg/dL Total Protein 4.2 L (6.3-8.2) g/dL Albumin 2.2 L (3.5-5.0) g/dL Assessment and Plan Assessment: Acute upper GI bleed. Status post EGD. No active bleeding noted. Hemoglobin stable. Acute blood loss anemia secondary to GI bleed small bowel obstruction with intussusception. Status post Laparotomy with reduction of jejunal jejunal intussusception, closure of internal hernia jejunojejunostomy, drainage of abdominal ascites 1 L. History of gastric bypass surgery in 2016 GERD Leukocytosis suspected aspiration. Elevated ALT level. COPD Chronic back pain with history of back surgery and recent removal of spinal cord stimulator at [facility]. History of aortic valve replacement Hypertension Osteoarthritis History of Hernandez's esophagus surgically removed Chronic pain syndrome Nicotine dependence Depression Unintentional Weight loss with mild to moderate protein calorie malnutrition DVT prophylaxis with SCDs Plan: Patient will be continued on IV fluids and Protonix IV, Carafate and monitor H&H. Chest x-ray and UA negative.. Continue with Zosyn for possible aspiration pneumonia. Patient also says that she had subjective fevers at home. Continue with breathing treatments and follow up closely. Follow liver enzymes, normalized now. Patient was seen by general surgery. Status post EGD. Continue the pain management. Further recommendations based on the clinical course. Prognosis is guarded. Time with Patient: Greater than 30
[2018-08-24] MEDS: SIMETHICONE 40 MG/0.6 ML DROPS 2,000 MG/30 ML BOTTLE PO SCH ×5 (02:38→23:54)
[2018-08-24] MEDS ORDERED: HYDROmorphone 0.5 MG/0.5 ML SYRINGE IVP STA (03:40)
--- NOTE | 2018-08-24 04:36 | XR ---
INDICATION: Abdominal pain COMPARISON: CT abdomen and pelvis 08/21/18 FINDINGS: 2 supine AP views of the abdomen are provided. There is evidence of recent midline laparotomy. Markedly dilated loops of bowel are seen throughout the abdomen. There are cholecystectomy clips in right upper quadrant. There are postoperative changes at the lumbosacral junction. There are no acute osseous findings. IMPRESSION: 1. Status post recent laparotomy. Markedly dilated bowel loops may reflect bowel obstruction or severe ileus.
[2018-08-24] MEDS: SODIUM CHLORIDE 0.9% 1,000 ML IV SCH ×3 (05:40→21:38)
[2018-08-24] MEDS ORDERED: MORPHINE SULFATE 2 MG/ML SYRINGE IVP PRN (06:09)
--- NOTE | 2018-08-24 06:17 | P.PN ---
Progress Note - Text Progress Note Date: 08/24/18 POD 2, Cath day 3. Patient had lower ext numbness in the top of the thighs overnight, RN concerned and turned down to 10ml/hr from 12. Patient began complaining of excruciating pain overnight, 0.5mg of hydromorphone given. Patient still complaining she is not able to ambulate very far, she can stand. Has not passed flatus, murphy catheter is in place. Denies any back pain. Site is clean, dry. Patient lower ext strength is 5/5, there is no focal weakness in hip flexors, hamstrings, elisabet ds. There is pain associated with movements. x rays show severe bowel dilation secondary to a likely ileus Plan as discussed with TOMY perry this mornin) Pull epidural catheter soon 2) Monitor patient for strength 3) IV pain medications reach out to anesthesia if there are any continued issues.
[2018-08-24] MEDS: ENOXAPARIN 30 MG/0.3 ML SYRINGE SQ SCH (07:42)
[2018-08-24] MEDS: PANTOPRAZOLE 40 MG/10 ML VIAL IVP SCH ×2 (07:42→21:24)
[2018-08-24 07:55] LABS: Basophils % (A) 0 %; Eosinophils # (A) 0.1 k/uL (0-0.7); Eosinophils % (A) 1 %; HCT 33.3 % (34.0-46.0); HGB 11.1 gm/dL (11.4-16.0); Lymphocytes # (A) 1.2 k/uL (1.0-4.8); Lymphocytes % (A) 11 %; MCH 30.1 pg (25.0-35.0); MCHC 33.4 g/dL (31.0-37.0); MCV 89.9 fL (80.0-100.0); Monocytes # (A) 0.6 k/uL (0-1.0); Monocytes % (A) 6 %; Neutrophils # (A) 8.4 k/uL (1.3-7.7); Neutrophils % (A) 81 %; Platelet Count 189 k/uL (150-450); RDW 14.9 % (11.5-15.5); WBC 10.5 k/uL (3.8-10.6)
[2018-08-24] MEDS: SYMBICORT 160-4.5 MCG INHALER INHALATION SCH ×2 (07:56→21:04)
[2018-08-24 08:11] LABS: African American GFR (CKD) >90 (>60 ml/min/1.73 sqM); Anion Gap 6 mmol/L; Blood Urea Nitrogen 5 mg/dL (7-17); Calcium 7.6 mg/dL (8.4-10.2); Carbon Dioxide 23 mmol/L (22-30); Chloride 108 mmol/L (98-107); Glucose 108 mg/dL (74-99); Magnesium 2.1 mg/dL (1.6-2.3); Phosphorus 2.7 mg/dL (2.5-4.5); Potassium 2.8 mmol/L (3.5-5.1); Sodium 137 mmol/L (137-145)
[2018-08-24] MEDS ORDERED: POTASSIUM CHLORIDE 10 MEQ in WATER FOR INJECTION 1 100ML.BAG IVPB SCH (09:00)
[2018-08-24] MEDS: METOCLOPRAMIDE 5 MG/ML 2 ML VIAL IVP SCH ×3 (10:06→21:24)
[2018-08-24] MEDS: POTASSIUM CHLORIDE 10 MEQ in WATER FOR INJECTION 1 100ML.BAG IVPB SCH ×6 (10:06→17:54)
--- NOTE | 2018-08-24 11:38 | P.PN ---
<Christine Centeno A - Last Filed: 08/24/18 11:32> Subjective Progress Note Date: 08/24/18 CHIEF COMPLAINT: Abdominal pain, vomiting blood HISTORY OF PRESENT ILLNESS: Patient examined at the bedside with Dr. Fleming. Patient is s/p exploratory laparotomy with reduction of intestinal intussusception. Patient denies passing flatus or having a BM. NG accidentally removed yesterday per patient. Patient denies nausea or vomiting. Rating pain 5/10. Epidural infusing at 10cc/hr. WBC 10.5. Hemoglobin 11.1 Potassium 2.8. ,Magnesium 2.1. PHYSICAL EXAM: VITAL SIGNS: Reviewed GENERAL: Well-developed in no acute distress. Thin. HEENT: No sclera icterus. Extraocular movements grossly intact. Head is atraumatic, normocephalic. Hears conversational speech. No nasal drainage. NECK: Supple without lymphadenopathy. CHEST: Non-labored respirations and equal bilateral excursions. CARDIOVASCULAR: Regular rate with regular rhythm. Palpable 2+ radial pulses. ABDOMEN: Soft. Nondistended. Positive bowel sounds. Appropriate surgical tenderness. Dressing with serosanguineous drainage. Abdominal binder present. MUSCULOSKELETAL: No clubbing, cyanosis or edema. NEUROLOGIC: No focal or lateralizing signs. Cranial nerves II through XII grossly intact. PSYCH: Appropriate affect. Alert and oriented to person, place and time. SKIN: Well perfused. Good skin turgor. ASSESSMENT: 1. Hematemesis with epigastric pain, status post EGD revealing gastrojejunal ulceration without active bleeding 2. Unintentional weight loss 3. History of gastric bypass, October 2015 4. Leukocytosis 5. Mildly elevated liver enzymes, likely secondary to daily acetaminophen use 6. Status post valvular replacement with history of hypertensive heart disease 7. History of Shipman's esophagus 8. Gastroesophageal reflux disease 9. Nicotine dependence 10. Recent back surgery, July 2018 11. Small bowel obstruction due to intussusception PLAN: 1. Strict NPO until patient begins passing flatus. May have mouth swabs only 2. PPN to begin today 3. Replace potassium 4. Continue epidural today for pain control. Continue murphy 5. Activity as tolerated. Consult PT/OT for weakness 6. Incentive spirometry 7. Reglan 10mg IV q6 hours Nurse practitioner note has been reviewed by physician. Signing provider agrees with the documented findings, assessment, and plan of care. Objective - Vital Signs Vital signs: Vital Signs Temp 98.9 F 08/24/18 04:15 Pulse 94 08/24/18 04:15 Resp 18 08/24/18 04:15 BP 134/81 08/24/18 04:15 Pulse Ox 93 L 08/24/18 04:15 Intake & Output 08/23/18 08/24/18 08/24/18 18:59 06:59 18:59 Intake Total 811.514 2701 Output Total 1400 1250 400 Balance -1096.333 -50 -400 Weight 69.5 kg Intake: Intake, IV Titration 83.667 1200 Amount Magnesium Sulfate-D5w Pmx 100 1 gm In Dextrose/Water 1 100ml.bag @ 100 mls/hr IVPB Q1H [facility] Rx#: [id number] Piperacillin-Tazobactam 3 100 .375 gm In Sodium Chloride 0.9% 100 ml @ 25 mls/hr IVPB Q8HR [facility] Rx# :[id number] Ropivacaine 400 mg 83.667 fentaNYL (PF) 625 mcg In Sodium Chloride 0.9% 158 ml @ Per Protocol EPIDURAL .Q0M PRN Rx#: [id number] Sodium Chloride 0.9% 1, 1000 000 ml @ 125 mls/hr IV . Q8H [facility] Rx#:[id number] Oral 220 Output: Urine 1400 1250 400 Uretheral (Murphy) 1250 Other: Voiding Method Indwelling Catheter Indwelling Catheter Indwelling Catheter # Voids 3 # Bowel Movements 0 - Labs CBC & Chem 7: 08/24/18 07:21 08/24/18 07:21 Labs: Abnormal Lab Results - Last 24 Hours (Table) 08/24/18 08/24/18 Range/Units 07:21 07:21 RBC 3.70 L (3.80-5.40) m/uL Hgb 11.1 L (11.4-16.0) gm/dL Hct 33.3 L (34.0-46.0) % Neutrophils # 8.4 H (1.3-7.7) k/uL Potassium 2.8 L (3.5-5.1) mmol/L Chloride 108 H (98-107) mmol/L BUN 5 L (7-17) mg/dL Glucose 108 H (74-99) mg/dL Calcium 7.6 L (8.4-10.2) mg/dL Assessment and Plan (1) Gastrojejunal ulcer Current Visit: Yes Status: Acute Code(s): K28.9 - GASTROJEJUNAL ULCER, UNSP ACUTE OR CHR, W/O HEMOR OR PERF SNOMED Code(s): 91171567 (2) Hematemesis Current Visit: Yes Status: Acute Code(s): K92.0 - HEMATEMESIS SNOMED Code(s): 2153140 (3) Abdominal pain Current Visit: No Status: Acute Code(s): R10.9 - UNSPECIFIED ABDOMINAL PAIN SNOMED Code(s): 71130605 (4) Gastroesophageal reflux disease Current Visit: No Status: Acute Code(s): K21.9 - GASTRO-ESOPHAGEAL REFLUX DISEASE WITHOUT ESOPHAGITIS SNOMED Code(s): 258414165 (5) Nausea & vomiting Current Visit: No Status: Acute Code(s): R11.2 - NAUSEA WITH VOMITING, UNSPECIFIED SNOMED Code(s): 33988625 (6) S/P gastric bypass Current Visit: No Status: Acute Code(s): Z98.84 - BARIATRIC SURGERY STATUS SNOMED Code(s): 501410112 (7) Barretts esophagus Current Visit: No Status: Chronic Code(s): K22.70 - SHIPMAN'S ESOPHAGUS WITHOUT DYSPLASIA SNOMED Code(s): 550769774 <Rayne Fleming N - Last Filed: 08/24/18 19:27> Subjective Patient has severe hypokalemia protracting overall recovery. Bowel function should improve with treatment of low potassium. Objective - Vital Signs Vital signs: Vital Signs Temp 98.7 F 08/24/18 11:37 Pulse 88 08/24/18 11:59 Resp 16 08/24/18 11:37 BP 143/89 08/24/18 11:37 Pulse Ox 95 08/24/18 11:37 Intake & Output 08/24/18 08/24/18 08/25/18 06:59 18:59 06:59 Intake Total 1200 242 Output Total 1250 800 Balance -50 -558 Weight 69.5 kg 69.5 kg Intake: Intake, IV Titration 1200 242 Amount Magnesium Sulfate-D5w Pmx 100 1 gm In Dextrose/Water 1 100ml.bag @ 100 mls/hr IVPB Q1H [facility] Rx#: [id number] Piperacillin-Tazobactam 3 100 .375 gm In Sodium Chloride 0.9% 100 ml @ 25 mls/hr IVPB Q8HR [facility] Rx# :[id number] Ropivacaine 400 mg 242 fentaNYL (PF) 625 mcg In Sodium Chloride 0.9% 158 ml @ Per Protocol EPIDURAL .Q0M [facility] Rx#: [id number] Sodium Chloride 0.9% 1, 1000 000 ml @ 125 mls/hr IV . Q8H [facility] Rx#:[id number] Output: Urine 1250 800 Uretheral (Murphy) 1250 Other: Voiding Method Indwelling Catheter Indwelling Catheter # Bowel Movements 0 - Labs CBC & Chem 7: 08/24/18 07:21 08/24/18 07:21 Labs: Abnormal Lab Results - Last 24 Hours (Table) 08/24/18 08/24/18 08/24/18 Range/Units 07:21 07:21 15:19 RBC 3.70 L (3.80-5.40) m/uL Hgb 11.1 L (11.4-16.0) gm/dL Hct 33.3 L (34.0-46.0) % Neutrophils # 8.4 H (1.3-7.7) k/uL Potassium 2.8 L (3.5-5.1) mmol/L Chloride 108 H (98-107) mmol/L BUN 5 L (7-17) mg/dL Glucose 108 H (74-99) mg/dL Calcium 7.6 L (8.4-10.2) mg/dL Albumin 2.4 L (3.5-5.0) g/dL Assessment and Plan (1) Tobacco abuse Current Visit: Yes Status: Acute Code(s): Z72.0 - TOBACCO USE SNOMED Code(s): 535998583 (2) Tobacco abuse counseling Current Visit: Yes Status: Acute Code(s): Z71.6 - TOBACCO ABUSE COUNSELING SNOMED Code(s): 857699410 (3) Intussusception intestine Current Visit: Yes Status: Acute Code(s): K56.1 - INTUSSUSCEPTION SNOMED Code(s): 19604639 (4) Gastrojejunal ulcer Current Visit: Yes Status: Acute Code(s): K28.9 - GASTROJEJUNAL ULCER, UNSP ACUTE OR CHR, W/O HEMOR OR PERF SNOMED Code(s): 70008039 (5) Hematemesis Current Visit: Yes Status: Acute Code(s): K92.0 - HEMATEMESIS SNOMED Code(s): 1899166 (6) Dehydration Current Visit: No Status: Acute Code(s): E86.0 - DEHYDRATION SNOMED Code (s): 48689226 (7) Fibromyalgia Current Visit: No Status: Acute Code(s): M79.7 - FIBROMYALGIA SNOMED Code(s): 945265558 (8) S/P MVR (mitral valve replacement) Current Visit: No Status: Acute Code(s): Z95.2 - PRESENCE OF PROSTHETIC HEART VALVE SNOMED Code(s): 6458384958214 (9) S/P gastric bypass Current Visit: No Status: Acute Code(s): Z98.84 - BARIATRIC SURGERY STATUS SNOMED Code(s): 455495286 (10) SBO (small bowel obstruction) Current Visit: No Status: Acute Code(s): K56.69 - OTHER INTESTINAL OBSTRUCTION * DO NOT USE * SNOMED Code(s): 326732343 (11) Bariatric surgery status Current Visit: No Status: Chronic Code(s): Z98.84 - BARIATRIC SURGERY STATUS SNOMED Code(s): 988361714
[2018-08-24] MEDS: IPRATROPIUM-ALBUTEROL 3 ML NEB INHALATION PRN ×2 (11:50→21:02)
[2018-08-24] MEDS ORDERED: diphenhydrAMINE 25 MG CAP PO PRN (15:27)
[2018-08-24 15:43] LABS: Ionized Calcium 4.8 mg/dL (4.5-5.3)
[2018-08-24 15:44] LABS: Albumin 2.4 g/dL (3.5-5.0)
[2018-08-24] MEDS ORDERED: FAT EMULSION 20% 250 ML IV SCH (16:00)
[2018-08-24] MEDS ORDERED: MVI, ADULT NO.4 WITH VIT K 10 ML, TRACE (CONC-1ML/DOSE) 1 ML in AMINO ACID 4.25%-D10W+L... IV ONE ×3 (16:00)
[2018-08-24] MEDS: ROPIVACAINE 400 MG, fentaNYL (PF) 625 MCG in SODIUM CHLORIDE 0.9% 158 ML EPIDURAL PRN (16:23)
[2018-08-24] MEDS ORDERED: FUROSEMIDE 10 MG/ML 4 ML VIAL IV STA (22:38)
[2018-08-24] MEDS ORDERED: POTASSIUM CHLORIDE 40 MEQ in WATER FOR INJECTION 1 100ML.BAG IVPB STA (22:38)
--- NOTE | 2018-08-24 22:58 | XR ---
EXAM: XR Chest, 1 View CLINICAL HISTORY: chf TECHNIQUE: Frontal view of the chest. COMPARISON: 08/19/18. FINDINGS: Lungs: Interval development of bilateral basilar infiltrates there appears be some blunting the left costophrenic angle raising the possibility of minute effusion Pleural space: Unremarkable. No pneumothorax. Heart: Unremarkable. No cardiomegaly. Mediastinum: Unremarkable. Bones/joints: Unremarkable. IMPRESSION: Interval development of bilateral lower lobe infiltrates. Possible left- sided effusion
[2018-08-24 23:48] LABS: Glucose,Whole Blood 125 mg/dL (75-99)
[2018-08-24] MEDS: MORPHINE SULFATE 4 MG/ML SYRINGE IVP PRN (23:55)
[2018-08-25] MEDS: BUDESONIDE 1 MG/2 ML NEBU INHALATION SCH ×3 (00:26→20:38)
[2018-08-25] MEDS: FORMOTEROL FUMARATE 20 MCG/2 ML NEBU INHALATION SCH ×3 (00:26→20:38)
[2018-08-25] MEDS: PIPERACILLIN-TAZOBACTAM 3.375 GM in SODIUM CHLORIDE 0.9% 100 ML IVPB SCH ×3 (00:50→16:06)
[2018-08-25] MEDS: LACTATED RINGERS 1,000 ML IV SCH (01:12)
[2018-08-25] MEDS: METOCLOPRAMIDE 5 MG/ML 2 ML VIAL IVP SCH ×4 (02:11→20:32)
[2018-08-25] MEDS: SODIUM CHLORIDE 0.9% 1,000 ML IV SCH (02:11)
[2018-08-25] MEDS: MORPHINE SULFATE 4 MG/ML SYRINGE IVP PRN ×5 (04:03→20:33)
[2018-08-25] MEDS: POTASSIUM CHLORIDE 10 MEQ in WATER FOR INJECTION 1 100ML.BAG IVPB SCH ×9 (04:04→14:51)
[2018-08-25 06:01] LABS: Glucose,Whole Blood 114 mg/dL (75-99)
[2018-08-25 07:03] LABS: Glucose,Whole Blood 113 mg/dL (75-99)
--- NOTE | 2018-08-25 07:24 | PN ---
PROGRESS NOTE DATE OF SERVICE: 08/24/2018 This is a 58-year-old woman with a past medical history of gastric bypass surgery was admitted with acute upper gastrointestinal bleeding. EGD showed an active bleeding. Patient is still complaining of abdominal discomfort at this time. The patient also had abdominal x-ray today, this morning, silk soaker showed markedly dilated bowel loops or indicating severe ileus. Surgery has seen the patient and they recommend a strict n.p.o. at this time. The patient had surgery, laparotomy with reduction of the jejunal intussusception and closure of internal hernia, jejunal ostomy and drainage of the abdominal ascites [address] Fleming. The patient is being closely monitored at this time. PAST MEDICAL HISTORY: Reviewed. REVIEW OF SYSTEMS: CARDIOVASCULAR: No angina. RESPIRATION: As mentioned earlier. GI: As mentioned earlier. : No dysuria. NERVOUS SYSTEM: As mentioned earlier. CURRENT MEDICATIONS: Reviewed and include: 1. DuoNeb q.i.d. and p.r.n. 2. Symbicort. 3. Lovenox 40 mg subcutaneous. 4. Lipids TPN. 5. Ativan. 6. Reglan 10 mg IV q.6 hours. 7. Magnesium protocol. 8. Potassium protocol. 9. Morphine sulfate. 10.Zofran. 11.Protonix. 12.TPN. 13.P.r.n. medications. PHYSICAL EXAM: Patient is alert and oriented x3. Pulse is 91, blood pressure 140/89, respiration 16, temperature 98.2, pulse ox 94% on room air. HEENT: Conjunctivae normal, oral mucosa moist. NECK: No jugular venous distention. No lymph node enlargement. CARDIOVASCULAR SYSTEM: S1, S2. RESPIRATION: Breath sounds diminished at the bases, a few scattered rhonchi, no crackles. ABDOMEN: Soft, mild diffuse distention present. Mild diffuse tenderness. No guarding. No rigidity, no mass. Bowel sounds diminished, no ascites. LEGS: No edema, no swelling. NERVOUS SYSTEM: Higher functions as mentioned earlier, moves all 4 limbs, no focal deficits. LYMPHATICS: No lymph node enlargement in the neck or axilla. SKIN: No ulcer, rash, bleeding. JOINTS: No active deformity or arthropathy. LABS: WBC 10.2, hemoglobin is 11.1, sodium 130, potassium 2.8. Otherwise, albumin is 2.4. ASSESSMENT: 1. Acute small-bowel obstruction and acute gastrointestinal bleed, status post laparotomy with reduction of the jejunal intussusception, closure of internal hernia and jejunal ostomy and drainage of abdominal ascites. 2. Abdominal distention, possibly ileus, rule out bowel obstruction. 3. Hypokalemia. 4. Anemia, normocytic of undetermined etiology. 5. Chronic obstructive pulmonary disease. 6. History of cerebrovascular accident, transient ischemic attack. 7. Fibromyalgia. 8. Gastroesophageal reflux disease. 9. Hypertension. 10.History of liver disease. 11.History of Hernandez's esophagus. 12.History of degenerative joint disease. 13.Chronic back pain. 14.History of migraine. 15.History of transient ischemic attack, stroke. 16.History of appendectomy. 17.History of bariatric surgery. 18.History of cholecystectomy. 19.History of degenerative joint disease. 20.History of depression. 21.Continued ongoing nicotine dependence. RECOMMENDATION: In this 58-year-old woman who presented with multiple medical issues, at this time I recommend to continue with the current medical management and symptomatic treatment. Otherwise I would recommend a portable chest x-ray and otherwise we will call closely follow with surgery. Supplement potassium. Monitor electrolytes closely. Check magnesium. Continue with the TPN. Guarded prognosis because of multiple complex medical issues. Further recommendations to follow. See orders for details. MMODL / IJN: [id number] /
[2018-08-25] MEDS: PANTOPRAZOLE 40 MG/10 ML VIAL IVP SCH ×2 (07:52→20:32)
[2018-08-25] MEDS: ENOXAPARIN 40 MG/0.4 ML SYRINGE SQ SCH (07:52)
[2018-08-25] MEDS: SIMETHICONE 40 MG/0.6 ML DROPS 2,000 MG/30 ML BOTTLE PO SCH ×4 (07:55→22:25)
[2018-08-25] MEDS: IPRATROPIUM-ALBUTEROL 3 ML NEB INHALATION SCH ×4 (08:14→20:39)
[2018-08-25 08:57] LABS: Basophils % (A) 0 %; Eosinophils # (A) 0.1 k/uL (0-0.7); Eosinophils % (A) 1 %; HCT 36.1 % (34.0-46.0); Lymphocytes # (A) 1.3 k/uL (1.0-4.8); Lymphocytes % (A) 16 %; MCH 30.1 pg (25.0-35.0); MCHC 33.3 g/dL (31.0-37.0); MCV 90.6 fL (80.0-100.0); Mean Platelet Volume 7.8; Monocytes # (A) 0.6 k/uL (0-1.0); Monocytes % (A) 7 %; Neutrophils # (A) 6.4 k/uL (1.3-7.7); Neutrophils % (A) 75 %; Platelet Count 197 k/uL (150-450); RBC 3.98 m/uL (3.80-5.40); RDW 15.5 % (11.5-15.5); WBC 8.6 k/uL (3.8-10.6)
[2018-08-25] MEDS ORDERED: 1: MVI, ADULT NO.4 WITH VIT K 10 ML, TRACE (CONC-1ML/DOSE) 1 ML, POTASSIUM CHLORIDE 20 M IV SCH ×4 (09:00)
[2018-08-25 09:21] LABS: African American GFR (CKD) >90 (>60 ml/min/1.73 sqM); Anion Gap 5 mmol/L; Blood Urea Nitrogen 6 mg/dL (7-17); Carbon Dioxide 29 mmol/L (22-30); Chloride 101 mmol/L (98-107); Glucose 111 mg/dL (74-99); Magnesium 1.8 mg/dL (1.6-2.3); Phosphorus 3.5 mg/dL (2.5-4.5); Potassium 3.3 mmol/L (3.5-5.1); Sodium 135 mmol/L (137-145)
[2018-08-25 11:34] LABS: Glucose,Whole Blood 133 mg/dL (75-99)
--- NOTE | 2018-08-25 12:00 | P.PN ---
Subjective Progress Note Date: 08/25/18 CHIEF COMPLAINT: Abdominal pain, vomiting blood HISTORY OF PRESENT ILLNESS: Patient examined at the bedside with Dr. Fleming. Patient is s/p exploratory laparotomy with reduction of intestinal intussusception. Patients epidural was discontinued this morning. Pain is tolerable. She is passing flatus. Denies BM. Feels a little bloated. Denies nausea or vomiting. WBC 8.6. Hemoglobin 12.0. Potassium 3.3. Magnesium 1.8. PHYSICAL EXAM: VITAL SIGNS: Reviewed GENERAL: Well-developed in no acute distress. Thin. HEENT: No sclera icterus. Extraocular movements grossly intact. Head is atraumatic, normocephalic. Hears conversational speech. No nasal drainage. NECK: Supple without lymphadenopathy. CHEST: Non-labored respirations and equal bilateral excursions. CARDIOVASCULAR: Regular rate with regular rhythm. Palpable 2+ radial pulses. ABDOMEN: Soft. Mild distention. Positive bowel sounds. Appropriate surgical tenderness. Dressing with serosanguineous drainage. Abdominal binder present. MUSCULOSKELETAL: No clubbing, cyanosis or edema. NEUROLOGIC: No focal or lateralizing signs. Cranial nerves II through XII grossly intact. PSYCH: Appropriate affect. Alert and oriented to person, place and time. SKIN: Well perfused. Good skin turgor. ASSESSMENT: 1. Hematemesis with epigastric pain, status post EGD revealing gastrojejunal ulceration without active bleeding 2. Unintentional weight loss 3. History of gastric bypass, October 2015 4. Leukocytosis 5. Mildly elevated liver enzymes, likely secondary to daily acetaminophen use 6. Status post valvular replacement with history of hypertensive heart disease 7. History of Shipman's esophagus 8. Gastroesophageal reflux disease 9. Nicotine dependence 10. Recent back surgery, July 2018 11. Small bowel obstruction due to intussusception 12. Hypokalemia 13. Hypomagnesemia PLAN: 1. Clear liquid diet 2. Wean off PPN today 3. Replace potassium and magnesium 4. Discontinue murphy catheter 5. Activity as tolerated. PT/OT for weakness 6. Incentive spirometry 7. Continue reglan 8. Change abdominal dressing today due to saturation Nurse practitioner note has been reviewed by physician. Signing provider agrees with the documented findings, assessment, and plan of care. Objective - Vital Signs Vital signs: Vital Signs Temp 98.3 F 08/25/18 03:59 Pulse 90 08/25/18 08:48 Resp 16 08/25/18 03:59 BP 133/80 08/25/18 03:59 Pulse Ox 95 08/25/18 08:17 Intake & Output 08/24/18 08/25/18 08/25/18 18:59 06:59 18:59 Intake Total 242 1310 Output Total 800 5200 Balance -558 -3890 Weight 69.5 kg 67.5 kg Intake: Intake, IV Titration 242 1310 Amount Fat Emulsion 20% 250 ml @ 200 20.833 mls/hr IV MoWeFr@ 1600 [facility] Rx#:[id number] Mvi, Adult No.4 with Vit 810 K 10 ml Trace (Conc-1Ml/ Dose) 1 ml In Amino Acid 4.25%-D10w+Lytes*E* 1,000 ml @ 50 mls/hr IV . [id number] ONE Rx#:[id number] Piperacillin-Tazobactam 3 100 .375 gm In Sodium Chloride 0.9% 100 ml @ 25 mls/hr IVPB Q8HR [facility] Rx# :[id number] Potassium Chloride 10 meq 200 In Water For Injection 1 100ml.bag @ 100 mls/hr IVPB Q1HR [facility] Rx#: [id number] Ropivacaine 400 mg 242 fentaNYL (PF) 625 mcg In Sodium Chloride 0.9% 158 ml @ Per Protocol EPIDURAL .Q0M PRN Rx#: [id number] Output: Urine 800 5200 Uretheral (Murphy) 3300 Other: Voiding Method Indwelling Catheter Indwelling Catheter Indwelling Catheter - Labs CBC & Chem 7: 08/25/18 08:06 08/25/18 08:06 Labs: Abnormal Lab Results - Last 24 Hours (Table) 08/24/18 08/24/18 08/25/18 Range/Units 15:19 23:46 01:34 Sodium (137-145) mmol/L Potassium 3.1 L (3.5-5.1) mmol/L BUN (7-17) mg/dL Creatinine (0.52-1.04) mg/dL Glucose (74-99) mg/dL POC Glucose (mg/dL) 125 H (75-99) mg/dL Calcium (8.4-10.2) mg/dL Albumin 2.4 L (3.5-5.0) g/dL 08/25/18 08/25/18 08/25/18 Range/Units 05:59 07:01 08:06 Sodium 135 L (137-145) mmol/L Potassium 3.3 L (3.5-5.1) mmol/L BUN 6 L (7-17) mg/dL Creatinine 0.49 L (0.52-1.04) mg/dL Glucose 111 H (74-99) mg/dL POC Glucose (mg/dL) 114 H 113 H (75-99) mg/dL Calcium 8.0 L (8.4-10.2) mg/dL Albumin (3.5-5.0) g/dL 08/25/18 Range/Units 11:33 Sodium (137-145) mmol/L Potassium (3.5-5.1) mmol/L BUN (7-17) mg/dL Creatinine (0.52-1.04) mg/dL Glucose (74-99) mg/dL POC Glucose (mg/dL) 133 H (75-99) mg/dL Calcium (8.4-10.2) mg/dL Albumin (3.5-5.0) g/dL Assessment and Plan (1) Gastrojejunal ulcer Current Visit: Yes Status: Acute Code(s): K28.9 - GASTROJEJUNAL ULCER, UNSP ACUTE OR CHR, W/O HEMOR OR PERF SNOMED Code(s): 42942803 (2) Hematemesis Current Visit: Yes Status: Acute Code(s): K92.0 - HEMATEMESIS SNOMED Code(s): 0869849 (3) Abdominal pain Current Visit: No Status: Acute Code(s): R10.9 - UNSPECIFIED ABDOMINAL PAIN SNOMED Code(s): 96480139 (4) Gastroesophageal reflux disease Current Visit: No Status: Acute Code(s): K21.9 - GASTRO-ESOPHAGEAL REFLUX DISEASE WITHOUT ESOPHAGITIS SNOMED Code(s): 996631761 (5) Nausea & vomiting Current Visit: No Status: Acute Code(s): R11.2 - NAUSEA WITH VOMITING, UNSPECIFIED SNOMED Code(s): 13291896 (6) S/P gastric bypass Current Visit: No Status: Acute Code(s): Z98.84 - BARIATRIC SURGERY STATUS SNOMED Code(s): 894053750 (7) Barretts esophagus Current Visit: No Status: Chronic Code(s): K22.70 - SHIPMAN'S ESOPHAGUS WITHOUT DYSPLASIA SNOMED Code(s): 880146816
[2018-08-25] MEDS: MAGNESIUM SULFATE-D5W PMX 1 GM in DEXTROSE/WATER 1 100ML.BAG IVPB SCH ×2 (12:18→14:52)
--- NOTE | 2018-08-25 16:30 | P.PN ---
<Gisela Condon - Last Filed: 08/25/18 16:01> Subjective Progress Note Date: 08/25/18 Principal diagnosis: This is a 58-year-old female who was admitted for acute upper GI bleeding that EGD showed an active bleed. Patient is feeling much better today with a little abdominal discomfort and bloating. Patient is passing gas and has been tolerating clear liquids at this time. Patient is being followed with Dr. Muller. Abdominal dressing was changed by them today. The epidural was disc ontinued and patient is tolerating fluids by mouth at this time. Patient is up and walking with a steady gait. The patient is being closely monitored at this time she was retaining fluid yesterday. PHYSICAL EXAM: Patient is alert and oriented 3. Current vitals are 98.1F, pulse 100, respirations 17, blood pressure 105/68, 97% oxygen saturation on room air. GENERAL: Well-developed in no acute distress. Thin. HEENT: Conjunctiva normal, EOMs intact NECK: Supple without lymphadenopathy. CHEST: Non-labored respirations CARDIOVASCULAR: S1, S2, regular rate and rhythm ABDOMEN: Soft. mildly distended with some tenderness noted on palpation, abdominal dressing changed and dry Legs: No edema, no swelling noted. NEUROLOGIC: No focal deficits SKIN: Well perfused. Good skin turgor. labs: wbc 8.6, hgb 12.0, Na 135, K+3.1, glucose 111 Assessment: 1. Acute small bowel obstruction and acute GI bleed, status post laparotomy with reduction of the jejunal intussusception, closure of internal hernia and jejunal ostomy and drainage of abdominal ascites 2. Abdominal distention, possibly ileus, rule out bowel obstruction 3. Hypokalemia 4. Anemia, normocytic of undetermined etiology 5. Chronic obstructive pulmonary disease 6. TIA, history of CVA 7. Fibromyalgia 8. GERD 9. Hypertension 10. History of liver disease 11 history of Hernandez's esophagitis 12. History of degenerative joint disease 13. Chronic back pain 14. History of migraine 15. History of TIA, stroke 16. History of appendectomy 17. History of bariatric surgery 18 history of cholecystectomy 19. History of degenerative joint disease 20. History of depression 21. Continued ongoing nicotine dependence Recommendations and discussions: This 58-year-old woman who presented with multiple medical issues and is recommended to continue with the current medical management and symptomatic treatment. Chest x-ray was done yesterday which showed bilateral basilar infiltrates and possible left-sided effusion with no cardiomegaly or no pneumothorax noted. IV Lasix was given and IV fluids discontinued as the patient is tolerating liquids by mouth. We'll continue to monitor labs closely as potassium is being replaced with possible discharge to home in 24-48 hours. Objective - Vital Signs Vital signs: Vital Signs Temp 98.1 F 08/25/18 12:33 Pulse 100 08/25/18 12:33 Resp 17 08/25/18 12:33 BP 105/68 08/25/18 12:33 Pulse Ox 97 08/25/18 12:33 Intake & Output 08/24/18 08/25/18 08/25/18 18:59 06:59 18:59 Intake Total 242 1310 Output Total 800 5200 Balance -558 -3890 Weight 69.5 kg 67.5 kg Intake: Intake, IV Titration 242 1310 Amount Fat Emulsion 20% 250 ml @ 200 20.833 mls/hr IV MoWeFr@ 1600 [facility] Rx#:[id number] Mvi, Adult No.4 with Vit 810 K 10 ml Trace (Conc-1Ml/ Dose) 1 ml In Amino Acid 4.25%-D10w+Lytes*E* 1,000 ml @ 50 mls/hr IV . [id number] ONE Rx#:[id number] Piperacillin-Tazobactam 3 100 .375 gm In Sodium Chloride 0.9% 100 ml @ 25 mls/hr IVPB Q8HR [facility] Rx# :[id number] Potassium Chloride 10 meq 200 In Water For Injection 1 100ml.bag @ 100 mls/hr IVPB Q1HR [facility] Rx#: [id number] Ropivacaine 400 mg 242 fentaNYL (PF) 625 mcg In Sodium Chloride 0.9% 158 ml @ Per Protocol EPIDURAL .Q0M PRN Rx#: [id number] Output: Urine 800 5200 Uretheral (Ma) 3300 Other: Voiding Method Indwelling Catheter Indwelling Catheter Toilet - Labs CBC & Chem 7: 08/25/18 08:06 08/25/18 08:06 Labs: Abnormal Lab Results - Last 24 Hours (Table) 08/24/18 08/25/18 08/25/18 Range/Units 23:46 01:34 05:59 Sodium (137-145) mmol/L Potassium 3.1 L (3.5-5.1) mmol/L BUN (7-17) mg/dL Creatinine (0.52-1.04) mg/dL Glucose (74-99) mg/dL POC Glucose (mg/dL) 125 H 114 H (75-99) mg/dL Calcium (8.4-10.2) mg/dL 08/25/18 08/25/18 08/25/18 Range/Units 07:01 08:06 11:33 Sodium 135 L (137-145) mmol/L Potassium 3.3 L (3.5-5.1) mmol/L BUN 6 L (7-17) mg/dL Creatinine 0.49 L (0.52-1.04) mg/dL Glucose 111 H (74-99) mg/dL POC Glucose (mg/dL) 113 H 133 H (75-99) mg/dL Calcium 8.0 L (8.4-10.2) mg/dL <Zeina Logan - Last Filed: 08/25/18 20:47> Subjective Principal diagnosis: Review of systems. Cardiovascular system system mentioned earlier respirator system mentioned earlier GI mentioned earlier no dysuria or retention Nervous system ystem diffusely weak Objective - Vital Signs Vital signs: Vital Signs Temp 98.1 F 08/25/18 12:33 Pulse 90 08/25/18 20:39 Resp 17 08/25/18 12:33 BP 105/68 08/25/18 12:33 Pulse Ox 96 08/25/18 16:10 Intake & Output 08/25/18 08/25/18 08/26/18 06:59 18:59 06:59 Intake Total 1310 Output Total 5200 Balance -3890 Weight 67.5 kg Intake: Intake, IV Titration 1310 Amount Fat Emulsion 20% 250 ml @ 200 20.833 mls/hr IV MoWeFr@ 1600 [facility] Rx#:[id number] Mvi, Adult No.4 with Vit 810 K 10 ml Trace (Conc-1Ml/ Dose) 1 ml In Amino Acid 4.25%-D10w+Lytes*E* 1,000 ml @ 50 mls/hr IV . [id number] [facility] Rx#:[id number] Piperacillin-Tazobactam 3 100 .375 gm In Sodium Chloride 0.9% 100 ml @ 25 mls/hr IVPB Q8HR [facility] Rx# :[id number] Potassium Chloride 10 meq 200 In Water For Injection 1 100ml.bag @ 100 mls/hr IVPB Q1HR [facility] Rx#: [id number] Output: Urine 5200 Uretheral (Ma) 3300 Other: Voiding Method Indwelling Catheter Toilet - Labs CBC & Chem 7: 08/25/18 08:06 08/25/18 08:06 Labs: Abnormal Lab Results - Last 24 Hours (Table) 08/24/18 08/25/18 08/25/18 Range/Units 23:46 01:34 05:59 Sodium (137-145) mmol/L Potassium 3.1 L (3.5-5.1) mmol/L BUN (7-17) mg/dL Creatinine (0.52-1.04) mg/dL Glucose (74-99) mg/dL POC Glucose (mg/dL) 125 H 114 H (75-99) mg/dL Calcium (8.4-10.2) mg/dL 08/25/18 08/25/18 08/25/18 Range/Units 07:01 08:06 11:33 Sodium 135 L (137-145) mmol/L Potassium 3.3 L (3.5-5.1) mmol/L BUN 6 L (7-17) mg/dL Creatinine 0.49 L (0.52-1.04) mg/dL Glucose 111 H (74-99) mg/dL POC Glucose (mg/dL) 113 H 133 H (75-99) mg/dL Calcium 8.0 L (8.4-10.2) mg/dL 08/25/18 08/25/18 Range/Units 16:33 19:39 Sodium (137-145) mmol/L Potassium (3.5-5.1) mmol/L BUN (7-17) mg/dL Creatinine (0.52-1.04) mg/dL Glucose (74-99) mg/dL POC Glucose (mg/dL) 115 H 126 H (75-99) mg/dL Calcium (8.4-10.2) mg/dL
[2018-08-25 16:35] LABS: Glucose,Whole Blood 115 mg/dL (75-99)
[2018-08-25 19:41] LABS: Glucose,Whole Blood 126 mg/dL (75-99)
[2018-08-26] MEDS: MORPHINE SULFATE 4 MG/ML SYRINGE IVP PRN (00:09)
[2018-08-26] MEDS: PIPERACILLIN-TAZOBACTAM 3.375 GM in SODIUM CHLORIDE 0.9% 100 ML IVPB SCH ×2 (00:15→10:00)
[2018-08-26] MEDS: LORazepam 2 MG/ML INJ IV PRN (01:17)
[2018-08-26] MEDS: METOCLOPRAMIDE 5 MG/ML 2 ML VIAL IVP SCH ×2 (02:17→10:01)
[2018-08-26 02:27] LABS: Glucose,Whole Blood 110 mg/dL (75-99)
[2018-08-26 08:23] LABS: African American GFR (CKD) >90 (>60 ml/min/1.73 sqM); Anion Gap 6 mmol/L; Blood Urea Nitrogen 4 mg/dL (7-17); Calcium 8.4 mg/dL (8.4-10.2); Carbon Dioxide 30 mmol/L (22-30); Chloride 102 mmol/L (98-107); Glucose 103 mg/dL (74-99); Magnesium 2.1 mg/dL (1.6-2.3); Phosphorus 4.3 mg/dL (2.5-4.5); Potassium 3.6 mmol/L (3.5-5.1); Sodium 138 mmol/L (137-145)
[2018-08-26] MEDS: FORMOTEROL FUMARATE 20 MCG/2 ML NEBU INHALATION SCH (08:51)
[2018-08-26] MEDS: BUDESONIDE 1 MG/2 ML NEBU INHALATION SCH (08:51)
[2018-08-26] MEDS: IPRATROPIUM-ALBUTEROL 3 ML NEB INHALATION SCH ×2 (08:52→12:13)
[2018-08-26] MEDS ORDERED: BISACODYL 10 MG SUPP RECTAL STA (09:02)
[2018-08-26] MEDS: SCOPOLAMINE 1.5MG/72HR PATCH TRANSDERM SCH (10:00)
[2018-08-26] MEDS: ENOXAPARIN 40 MG/0.4 ML SYRINGE SQ SCH (10:01)
[2018-08-26] MEDS: PANTOPRAZOLE 40 MG/10 ML VIAL IVP SCH (10:01)
[2018-08-26] MEDS: SIMETHICONE 40 MG/0.6 ML DROPS 2,000 MG/30 ML BOTTLE PO SCH ×2 (10:02→12:37)
[2018-08-26] MEDS ORDERED: HYDROcodone/APAP 5-325MG 1 EACH TAB PO PRN (10:44)
--- NOTE | 2018-08-26 11:29 | P.PN ---
<Christine Centeno A - Last Filed: 08/26/18 11:25> Subjective Progress Note Date: 08/26/18 CHIEF COMPLAINT: Abdominal pain, vomiting blood HISTORY OF PRESENT ILLNESS: Patient examined at the bedside with Dr. Fleming. Patient is s/p exploratory laparotomy with reduction of intestinal intussusception. Patients pain is tolerable. She is passing flatus. Denies BM. Tolerating clear liquid diet. Does not want diet advanced at this time. Denies nausea or vomiting. PHYSICAL EXAM: VITAL SIGNS: Reviewed GENERAL: Well-developed in no acute distress. Thin. HEENT: No sclera icterus. Extraocular movements grossly intact. Head is atraumatic, normocephalic. Hears conversational speech. No nasal drainage. NECK: Supple without lymphadenopathy. CHEST: Non-labored respirations and equal bilateral excursions. CARDIOVASCULAR: Regular rate with regular rhythm. Palpable 2+ radial pulses. ABDOMEN: Soft. Mild distention. Positive bowel sounds. Appropriate surgical tenderness. Dressing clean dry intact. MUSCULOSKELETAL: No clubbing, cyanosis or edema. NEUROLOGIC: No focal or lateralizing signs. Cranial nerves II through XII grossly intact. PSYCH: Appropriate affect. Alert and oriented to person, place and time. SKIN: Well perfused. Good skin turgor. ASSESSMENT: 1. Hematemesis with epigastric pain, status post EGD revealing gastrojejunal ulceration without active bleeding 2. Unintentional weight loss 3. History of gastric bypass, October 2015 4. Leukocytosis 5. Mildly elevated liver enzymes, likely secondary to daily acetaminophen use 6. Status post valvular replacement with history of hypertensive heart disease 7. History of Shipman's esophagus 8. Gastroesophageal reflux disease 9. Nicotine dependence 10. Recent back surgery, July 2018 11. Small bowel obstruction due to intussusception 12. Hypokalemia 13. Hypomagnesemia PLAN: 1. Clear liquid diet. Patient would like to continue liquid diet at this time 2. Dulcolax suppository x 1 3. Activity as tolerated 4. Incentive spirometry 5. Patient may be discharged home today. Patient may continue liquid diet at discharge and advance as tolerated at home. Follow up with Dr. Fleming in 1 week. Nurse practitioner note has been reviewed by physician. Signing provider agrees with the documented findings, assessment, and plan of care. Objective - Vital Signs Vital signs: Vital Signs Temp 98.9 F 08/26/18 05:00 Pulse 62 08/26/18 05:00 Resp 16 08/26/18 05:00 BP 144/93 08/26/18 05:00 Pulse Ox 93 L 08/26/18 05:00 Intake & Output 08/25/18 08/26/18 08/26/18 18:59 06:59 18:59 Other: Voiding Method Toilet Toilet - Labs CBC & Chem 7: 08/25/18 08:06 08/26/18 07:07 Labs: Abnormal Lab Results - Last 24 Hours (Table) 08/25/18 08/25/18 08/25/18 Range/Units 11:33 16:33 19:39 BUN (7-17) mg/dL Glucose (74-99) mg/dL POC Glucose (mg/dL) 133 H 115 H 126 H (75-99) mg/dL 08/26/18 08/26/18 Range/Units 02:26 07:07 BUN 4 L (7-17) mg/dL Glucose 103 H (74-99) mg/dL POC Glucose (mg/dL) 110 H (75-99) mg/dL Assessment and Plan (1) Gastrojejunal ulcer Status: Acute Code(s): K28.9 - GASTROJEJUNAL ULCER, UNSP ACUTE OR CHR, W/O HEMOR OR PERF SNOMED Code(s): 49849650 (2) Hematemesis Status: Acute Code(s): K92.0 - HEMATEMESIS SNOMED Code(s): 5111037 (3) Abdominal pain Status: Acute Code(s): R10.9 - UNSPECIFIED ABDOMINAL PAIN SNOMED Code(s): 90253748 (4) Gastroesophageal reflux disease Status: Acute Code(s): K21.9 - GASTRO-ESOPHAGEAL REFLUX DISEASE WITHOUT ESOPHAGITIS SNOMED Code(s): 440718639 (5) Nausea & vomiting Status: Acute Code(s): R11.2 - NAUSEA WITH VOMITING, UNSPECIFIED SNOMED Code(s): 76485312 (6) S/P gastric bypass Status: Acute Code(s): Z98.84 - BARIATRIC SURGERY STATUS SNOMED Code(s): 103662594 (7) Barretts esophagus Status: Chronic Code(s): K22.70 - SHIPMAN'S ESOPHAGUS WITHOUT DYSPLASIA SNOMED Code(s): 099679504 <Rayne Fleming N - Last Filed: 08/26/18 16:47> Subjective Patient seen and evaluated. Patient will follow up as an outpatient. Continue with liquid diet upon discharge. Objective - Vital Signs Vital signs: Vital Signs Temp 98.6 F 08/26/18 12:04 Pulse 98 08/26/18 12:04 Resp 17 08/26/18 12:04 BP 115/83 08/26/18 12:04 Pulse Ox 96 08/26/18 12:04 Intake & Output 08/25/18 08/26/18 08/26/18 18:59 06:59 18:59 Weight 67.5 kg Other: Voiding Method Toilet Toilet Toilet - Labs CBC & Chem 7: 08/25/18 08:06 08/26/18 07:07 Labs: Abnormal Lab Results - Last 24 Hours (Table) 08/25/18 08/26/18 08/26/18 Range/Units 19:39 02:26 07:07 BUN 4 L (7-17) mg/dL Glucose 103 H (74-99) mg/dL POC Glucose (mg/dL) 126 H 110 H (75-99) mg/dL Assessment and Plan (1) Tobacco abuse Status: Acute Code(s): Z72.0 - TOBACCO USE SNOMED Code(s): 123265800 (2) Tobacco abuse counseling Status: Acute Code(s): Z71.6 - TOBACCO ABUSE COUNSELING SNOMED Code(s): 471795717 (3) Intussusception intestine Status: Acute Code(s): K56.1 - INTUSSUSCEPTION SNOMED Code(s): 74355624 (4) Gastrojejunal ulcer Status: Acute Code(s): K28.9 - GASTROJEJUNAL ULCER, UNSP ACUTE OR CHR, W/O HEMOR OR PERF SNOMED Code(s): 89772265 (5) Hematemesis Status: Acute Code(s): K92.0 - HEMATEMESIS SNOMED Code(s): 6910131 (6) Dehydration Status: Acute Code(s): E86.0 - DEHYDRATION SNOMED Code(s): 45566035 (7) Fibromyalgia Status: Acute Code(s): M79.7 - FIBROMYALGIA SNOMED Code(s): 610789514 (8) S/P MVR (mitral valve replacement) Status: Acute Code(s): Z95.2 - PRESENCE OF PROSTHETIC HEART VALVE SNOMED Code(s): 3104138416430 (9) S/P gastric bypass Status: Acute Code(s): Z98.84 - BARIATRIC SURGERY STATUS SNOMED Code(s): 834691354 (10) SBO (small bowel obstruction) Status: Acute Code(s): K56.69 - OTHER INTESTINAL OBSTRUCTION * DO NOT USE * SNOMED Code(s): 103188313 (11) Bariatric surgery status Status: Chronic Code(s): Z98.84 - BARIATRIC SURGERY STATUS SNOMED Code(s): 943785786
[2018-08-26 12:05] VITALS: BP 115/83; PULSE 98; RESP 17; TEMP 98.6
--- NOTE | 2018-08-26 12:36 | P.DS ---
Providers Date of admission: 08/20/18 10:44 Expected date of discharge: 08/26/18 Attending physician: Zeina Logan Consults: 08/19/18 10:26 Consult Physician Urgent Consulting Provider: Rayne Fleming Consult Reason/Comments: bariatric surgery 2017 s/p Do you want consulting provider notified?: Yes Primary care physician: [facility] Hospital Course: HISTORY OF PRESENT ILLNESS: This is a 58-year-old female who is a patient of Dr. Fleming. Patient was admitted to [facility] status post exploratory laparotomy with reduction of intestinal intussusception. Patient is denying any pain, shortness of breath, chest pain, or fevers at this time patient is passing flatus and has had a bowel movement this morning. Patient is tolerating clear liquid diets and will go home on clear liquid diet and advance as tolerated. Patient denies any nausea or vomiting at this time. Patient agrees with going home and following up in outpatient setting. On exam vitals are stable. Cardiovascular S1 and S2 are normal Respiratory clear to auscultation Abdomen soft, mild distention, dressing dry and intact, abdominal pain are noted Nervous system no focal deficits, steady gait Hospital course: Final diagnosis Acute small bowel obstruction and acute GI bleed, status post laparotomy with reduction of the jejunal intussusception, closure of internal hernia with jej unal ostomy and drainage of abdominal ascites Abdominal distention Hypokalemia Anemia normocytic of undetermined etiology Chronic obstructive pulmonary disease Continued ongoing nicotine dependence Discharge Medication List Albuterol Nebulized [Ventolin Nebulized] 2.5 mg INHALATION RT-TID 07/07/13 [History] Venlafaxine HCl [Effexor XR] 150 mg PO BID 01/12/15 [History] Cholecalciferol (Vitamin D3) [Vitamin D3] 5,000 unit PO DAILY 02/13/17 [History] Albuterol Sulfate [Proair Hfa] 1 - 2 puff INHALATION RT-Q6H PRN 11/17/17 [History] Budesonide/Formoterol Fumarate [Symbicort 160-4.5 Mcg Inhaler] 2 puff INHALATION RT-BID 11/17/17 [History] Tiotropium Bea[place] [Spiriva] 1 cap INHALATION RT-DAILY 11/17/17 [History] Alive Ultra Potency 120 mg PO DAILY 10/17/18 [History] Acetaminophen/Diphenhydramine [Tylenol PM 500-25mg] 2 tab PO HS 12/30/17 [History] Methocarbamol [Robaxin-750] 750 mg PO TID 05/10/18 [History] Midodrine HCl [ProAmantine] 2.5 mg PO BID 05/10/18 [History] Vitamin E (Dl,Tocopheryl Acet) [Vitamin E] 400 unit PO DAILY 05/10/18 [History] Acetaminophen [Tylenol Arthritis] 1,300 mg PO BID 07/29/18 [History] Buprenorphine HCl/Naloxone HCl [Suboxone 8 mg-2 mg Sl Film] 1 film SL TID 07/29/18 [History] Calcium Carb/Vitamin D3/Vit K1 [Citracal Soft Chew] 1 tab PO DAILY 08/19/18 [History] Gabapentin [Neurontin] 300 mg PO TID 08/19/18 [History] Multivitamin/Iron/Folic Acid [Centrum Adults Tablet] 1 tab PO DAILY 08/19/18 [History] Pantoprazole [Protonix] 40 mg PO BID #60 tab 08/21/18 [Rx] Sucralfate [Carafate] 1 gm PO TID #90 tablet 08/21/18 [Rx] Hydrocodone/Acetaminophen [Linden 5-325] 1 tab PO Q4HR PRN 3 Days #18 tab 08/26/18 [Rx] Polyethylene Glycol 3350 [Miralax] 17 gm PO DAILY #30 packet 08/26/18 [Rx] Patient was discharged home in stable condition on [08/26/2018]. Follow-up appointment: Patient is to follow-up with Dr. Fleming in the office in 1 week as discussed at the bedside. Plan - Discharge Summary Discharge Rx Participant: No New Discharge Prescriptions: New Sucralfate [Carafate] 1 gm PO TID #90 tablet Polyethylene Glycol 3350 [Miralax] 17 gm PO DAILY #30 packet Hydrocodone/Acetaminophen [Linden 5-325] 1 tab PO Q4HR PRN 3 Days #18 tab PRN Reason: Pain Continue Albuterol Nebulized [Ventolin Nebulized] 2.5 mg INHALATION RT-TID Pantoprazole [Protonix] 40 mg PO BID #60 tab No Action Venlafaxine HCl [Effexor XR] 150 mg PO BID Cholecalciferol (Vitamin D3) [Vitamin D3] 5,000 unit PO DAILY Tiotropium Beaum[place] [Spiriva] 1 cap INHALATION RT-DAILY Albuterol Sulfate [Proair Hfa] 1 - 2 puff INHALATION RT-Q6H PRN PRN Reason: Respiratory Distress Budesonide/Formoterol Fumarate [Symbicort 160-4.5 Mcg Inhaler] 2 puff INHALATION RT-BID Alive Ultra Potency 120 mg PO DAILY Acetaminophen/Diphenhydramine [Tylenol PM 500-25mg] 2 tab PO HS Midodrine HCl [ProAmantine] 2.5 mg PO BID Vitamin E (Dl,Tocopheryl Acet) [Vitamin E] 400 unit PO DAILY Methocarbamol [Robaxin-750] 750 mg PO TID Acetaminophen [Tylenol Arthritis] 1,300 mg PO BID Buprenorphine HCl/Naloxone HCl [Suboxone 8 mg-2 mg Sl Film] 1 film SL TID Calcium Carb/Vitamin D3/Vit K1 [Citracal Soft Chew] 1 tab PO DAILY Gabapentin [Neurontin] 300 mg PO TID Multivitamin/Iron/Folic Acid [Centrum Adults Tablet] 1 tab PO DAILY Discharge Medication List Albuterol Nebulized [Ventolin Nebulized] 2.5 mg INHALATION RT-TID 07/07/13 [History] Venlafaxine HCl [Effexor XR] 150 mg PO BID 01/12/15 [History] Cholecalciferol (Vitamin D3) [Vitamin D3] 5,000 unit PO DAILY 02/13/17 [History] Albuterol Sulfate [Proair Hfa] 1 - 2 puff INHALATION RT-Q6H PRN 11/17/17 [History] Budesonide/Formoterol Fumarate [Symbicort 160-4.5 Mcg Inhaler] 2 puff INHALATION RT-BID 11/17/17 [History] Tiotropium [place] [Spiriva] 1 cap INHALATION RT-DAILY 11/17/17 [History] Alive Ultra Potency 120 mg PO DAILY 12/10/17 [History] Acetaminophen/Diphenhydramine [Tylenol PM 500-25mg] 2 tab PO HS 12/30/17 [History] Methocarbamol [Robaxin-750] 750 mg PO TID 05/10/18 [History] Midodrine HCl [ProAmantine] 2.5 mg PO BID 05/10/18 [History] Vitamin E (Dl,Tocopheryl Acet) [Vitamin E] 400 unit PO DAILY 05/10/18 [History] Acetaminophen [Tylenol Arthritis] 1,300 mg PO BID 07/29/18 [History] Buprenorphine HCl/Naloxone HCl [Suboxone 8 mg-2 mg Sl Film] 1 film SL TID 07/29/18 [History] Calcium Carb/Vitamin D3/Vit K1 [Citracal Soft Chew] 1 tab PO DAILY 08/19/18 [History] Gabapentin [Neurontin] 300 mg PO TID 08/19/18 [History] Multivitamin/Iron/Folic Acid [Centrum Adults Tablet] 1 tab PO DAILY 08/19/18 [History] Pantoprazole [Protonix] 40 mg PO BID #60 tab 08/21/18 [Rx] Sucralfate [Carafate] 1 gm PO TID #90 tablet 08/21/18 [Rx] Hydrocodone/Acetaminophen [Linden 5-325] 1 tab PO Q4HR PRN 3 Days #18 tab 08/26/18 [Rx] Polyethylene Glycol 3350 [Miralax] 17 gm PO DAILY #30 packet 08/26/18 [Rx] Follow up Appointment(s)/Referral(s): Mitch Daniels MD [Primary Care Provider] - 09/03/18 1:10 pm (Cancelled your appointment for the this is your new appointment.) Rayne Fleming MD [STAFF PHYSICIAN] - 2 Weeks Bariatric Center,. [NON-STAFF] - 1 Week (make patient an appt for 1 week in the bariatric center) Activity/Diet/Wound Care/Special Instructions: NO SMOKING No driving while taking Linden No lifting greater than 4 pounds for 4 weeks You may shower. No tub baths or soaking Light activity Continue with drinking the protein supplements at 10am/4pm/and at bedtime
[2018-08-26 13:41] VITALS: BMI 24.0
== END 2018-08-26 14:11 | disposition home or self-care (01) | DRG 344 ==
LOC: EC 23:40 → 4MS4W 08-19 03:30 → 3NMEDONC 08-19 08:20 → OBSVTOIN 08-20 10:44
PROVIDERS: ADMIT Hospitalist; ATTEND Hospitalist
PROC: 0DJ08ZZ Inspection of Upper Intestinal Tract, Via Natural or Artificial Opening Endoscopic (ICD-10-PCS; 2018-08-20)
PROC: 0DQV0ZZ Repair Mesentery, Open Approach (ICD-10-PCS; 2018-08-22)
PROC: 0W9G0ZZ Drainage of Peritoneal Cavity, Open Approach (ICD-10-PCS; 2018-08-22)
PROC: 0DSA0ZZ Reposition Jejunum, Open Approach (ICD-10-PCS; principal; 2018-08-22 10:30)
DX: K56.1 Intussusception (principal); K28.4 Chronic or unspecified gastrojejunal ulcer with hemorrhage; D62 Acute posthemorrhagic anemia; K46.0 Unspecified abdominal hernia with obstruction, without gangrene; R18.8 Other ascites; E44.0 Moderate protein-calorie malnutrition; K56.609 Unspecified intestinal obstruction, unspecified as to partial versus complete obstruction; I11.0 Hypertensive heart disease with heart failure; I50.9 Heart failure, unspecified; E83.42 Hypomagnesemia; D50.9 Iron deficiency anemia, unspecified; D72.829 Elevated white blood cell count, unspecified; E86.0 Dehydration; E87.6 Hypokalemia; F17.210 Nicotine dependence, cigarettes, uncomplicated; F32.9 Major depressive disorder, single episode, unspecified; G25.81 Restless legs syndrome; G89.4 Chronic pain syndrome; J44.9 Chronic obstructive pulmonary disease, unspecified; K21.0 Gastro-esophageal reflux disease with esophagitis; M19.90 Unspecified osteoarthritis, unspecified site; M79.7 Fibromyalgia; G43.909 Migraine, unspecified, not intractable, without status migrainosus; M10.9 Gout, unspecified; M54.2 Cervicalgia; M54.9 Dorsalgia, unspecified; R74.8 Abnormal levels of other serum enzymes; T39.1X5A Adverse effect of 4-Aminophenol derivatives, initial encounter; Z68.24 Body mass index [BMI] 24.0-24.9, adult; Z79.51 Long term (current) use of inhaled steroids; Z79.899 Other long term (current) drug therapy; Z86.73 Personal history of transient ischemic attack (TIA), and cerebral infarction without residual deficits; Z98.84 Bariatric surgery status; Z95.2 Presence of prosthetic heart valve; Z86.010 Personal history of colon polyps; Z88.6 Allergy status to analgesic agent; Z91.018 Allergy to other foods; Z91.81 History of falling; Z90.49 Acquired absence of other specified parts of digestive tract; Z98.51 Tubal ligation status; Z96.60 Presence of unspecified orthopedic joint implant; Z82.49 Family history of ischemic heart disease and other diseases of the circulatory system
CPT/HCPCS: 36415; 43235; 71045; 74018; 74177; 80048; 80053; 81001; 82040; 82330; 83690; 83735; 83880; 84100; 84132; 84478; 85025; 85610; 85730; 86850; 86900; 86901; 94640; 94760; 96361; 96374; 96375; 96376; 99284

== ENCOUNTER → 2018-09-28 | Outpatient (CLI) | payer MEDICARE ==
[2018-09-28 15:18] VITALS: BMI 17.1
== END ==
LOC: BARWHC3 13:16
PROVIDERS: ATTEND Surgery Plastic and Reconstructive Surgery
DX: E66.01 Morbid (severe) obesity due to excess calories (principal); Z68.1 Body mass index [BMI] 19.9 or less, adult
CPT/HCPCS: 97803

== ENCOUNTER → 2018-11-30 | Outpatient (CLI) | payer MEDICARE ==
--- NOTE | 2018-11-30 15:00 | CT ---
EXAMINATION TYPE: CT abdomen wo con DATE OF EXAM: 11/30/2018 HISTORY: Epigastric pain. Swelling. CT DLP: 156.7 mGycm. Automated Exposure Control for Dose Reduction was Utilized. TECHNIQUE: CT scan of the abdomen is performed without oral or IV contrast. COMPARISON: CT abdomen and pelvis August 21, 2018 FINDINGS: Within the limitations of a non-contrast study, the following observations are made. LUNG BASES: Calcification level of mitral valve. LIVER/GB: Cholecystectomy clips are seen. Prominent right hepatic lobe redemonstrated. Persistent mil d central extrahepatic biliary dilatation up to 15 mm coronal image 26 with suspected mild central in trahepatic biliary dilatation. PANCREAS: No significant abnormality is seen. SPLEEN: Splenomegaly now identified measuring 14.4 cm long axis coronal image 49 slightly more promin ent from recent CT. ADRENALS: No significant abnormality is seen. KIDNEYS: No renal calculi or hydronephrosis. BOWEL: Evaluation of bowel suboptimal study due to lack of enteric contrast. Surgical changes from ga stric bypass surgery epigastric region are redemonstrated. Patient has very little intra-abdominal fa t making evaluation suboptimal. No suspicious bowel dilatation. Surgical sutures left midabdomen axia l image 36 are present. Additional surgical sutures right upper pelvis axial image 49 are noted. LYMPH NODES: No greater than 1cm abdominal lymph nodes are appreciated. OSSEOUS STRUCTURES: Postsurgical change lumbosacral junction redemonstrated. Facet arthropathy lower lumbar spine seen. OTHER: No significant additional abnormality is seen. IMPRESSION: No ascites. No recurrent bowel obstruction. Increasing splenomegaly is seen which may war rant further clinical workup.
== END | disposition home or self-care (01) ==
LOC: RADCTMAIN 14:35
PROVIDERS: ATTEND Internal Medicine
DX: R16.1 Splenomegaly, not elsewhere classified (principal); Z88.6 Allergy status to analgesic agent
CPT/HCPCS: 74150

== ENCOUNTER 2018-12-10 14:30 | Inpatient (IN) | payer MEDICARE ==
[2018-12-10] MEDS ORDERED: SODIUM CHLORIDE 0.9% 2,000 ML IV STA (14:38)
[2018-12-10] MEDS ORDERED: SODIUM CHLORIDE 0.9% 1,000 ML IV STA ×2 (14:38→17:05)
[2018-12-10] MEDS ORDERED: ONDANSETRON 4 MG/2 ML VIAL IVP STA ×2 (14:38→16:52)
[2018-12-10 15:24] LABS: Basophils # (A) 0.1 k/uL (0-0.2); Basophils % (A) 1 %; Eosinophils % (A) 0 %; HCT 52.3 % (34.0-46.0); HGB 16.5 gm/dL (11.4-16.0); Lymphocytes # (A) 2.4 k/uL (1.0-4.8); Lymphocytes % (A) 22 %; MCH 28.3 pg (25.0-35.0); MCHC 31.5 g/dL (31.0-37.0); MCV 89.9 fL (80.0-100.0); Mean Platelet Volume 7.2; Monocytes # (A) 0.3 k/uL (0-1.0); Monocytes % (A) 3 %; Neutrophils # (A) 7.9 k/uL (1.3-7.7); Neutrophils % (A) 72 %; Platelet Count 343 k/uL (150-450); RBC 5.82 m/uL (3.80-5.40); RDW 14.3 % (11.5-15.5); WBC 10.9 k/uL (3.8-10.6)
--- NOTE | 2018-12-10 15:26 | XR ---
EXAMINATION TYPE: XR chest 2V DATE OF EXAM: 12/10/2018 COMPARISON: 08/24/2018 HISTORY: Chest pain, diarrhea, weakness, COPD, hypertension TECHNIQUE: Frontal and lateral views of the chest are obtained. FINDINGS: Nipple shadows overlie the lower lungs. Resolution of the previously seen bibasilar airspa ce disease. Pulmonary hyperinflation of COPD. Postsurgical changes of the prominent mediastinum. Tort uosity of the ascending thoracic aorta with possible aneurysmal dilatation. Cervical spine demonstrat es surgical fusion. I'll to moderate degenerative changes of the thoracic spine. IMPRESSION: No acute cardiopulmonary process. COPD is seen as well prominence of the aorta, possible ascending thoracic aortic aneurysm.
--- NOTE | 2018-12-10 15:28 | XR ---
EXAMINATION TYPE: XR KUB DATE OF EXAM: 12/10/2018 COMPARISON: None INDICATION: Pain, diarrhea, dry heaves TECHNIQUE: Single view abdomen upright view right supine abdomen is also obtained. FINDINGS: There are some prominent air-filled loops of small bowel within the left upper quadrant. Air-fluid le vels within the midabdomen small bowel loop. Psoas margins are poorly visualized. No organomegaly is present. IMPRESSION: 1. Findings suggestive for partial small bowel obstruction. Report was called to the emergency room pool [place] by Dr. Leon by telephone at the time of interpretation.
[2018-12-10 15:32] LABS: ALT 48 U/L (9-52); AST 40 U/L (14-36); African American GFR (CKD) >90 (>60 ml/min/1.73 sqM); Albumin 4.9 g/dL (3.5-5.0); Alkaline Phosphatase 154 U/L (38-126); Anion Gap 12 mmol/L; Blood Urea Nitrogen 7 mg/dL (7-17); Calcium 10.2 mg/dL (8.4-10.2); Carbon Dioxide 21 mmol/L (22-30); Chloride 106 mmol/L (98-107); Creatine Kinase 77 U/L (30-135); Glucose 158 mg/dL (74-99); Magnesium 1.9 mg/dL (1.6-2.3); Non-African American GFR(CKD) >90 (>60 ml/min/1.73 sqM); Potassium 4.1 mmol/L (3.5-5.1); Sodium 139 mmol/L (137-145); Total Bilirubin 0.7 mg/dL (0.2-1.3); Total Protein 8.4 g/dL (6.3-8.2)
[2018-12-10] MEDS ORDERED: HYDROmorphone 1 MG/ML 1 ML SYRINGE IVP STA ×2 (15:36→16:51)
[2018-12-10] MEDS ORDERED: DICYCLOMINE 10 MG/ML 2 ML AMP IM STA (15:40)
--- NOTE | 2018-12-10 16:03 | ED ---
Weakness HPI - General Chief complaint: Weakness Stated complaint: WEAK Time Seen by Provider: 12/10/18 14:37 Source: patient, family, EMS, RN notes reviewed, old records reviewed Mode of arrival: EMS Limitations: no limitations - History of Present Illness Initial comments: This is a 58-year-old female history of gastric bypass surgery who states she's had diarrhea since the second of this month and started developing nausea vomiting over last day or so she had generalized weakness decreased oral intake lightheadedness and dizziness was present walk she denies any overt fevers chills or sweats. She is complaining admitted epigastric and midabdominal pain. He was later learned from family members and several days ago she had blood per rectum in the toilet bowl. No overt fevers chills or sweats she was brought in by EMS she was noted be highly dehydrated. She has been losing weight. MD Complaint: generalized weakness, lack of energy - Related Data Home Medications Medication Instructions Recorded Confirmed Albuterol Nebulized [Ventolin 2.5 mg INHALATION RT-TID 07/07/13 12/10/18 Nebulized] Venlafaxine HCl [Effexor XR] 150 mg PO BID 01/12/15 12/10/18 Budesonide/Formoterol Fumarate 2 puff INHALATION RT-BID 11/17/17 12/10/18 [Symbicort 160-4.5 Mcg Inhaler] Tiotropium Barry [Spiriva] 1 cap INHALATION RT-DAILY 11/17/17 12/10/18 Alive Ultra Potency 1 tab PO DAILY 12/10/17 12/10/18 Acetaminophen/Diphenhydramine 2 tab PO HS 12/30/17 12/10/18 [Tylenol PM 500-25mg] Methocarbamol [Robaxin-750] 750 mg PO TID 05/10/18 12/10/18 Midodrine HCl [ProAmantine] 2.5 mg PO BID 05/10/18 12/10/18 Acetaminophen [Tylenol Arthritis] 1,300 mg PO BID 07/29/18 12/10/18 Buprenorphine HCl/Naloxone HCl 1 film SL TID 07/29/18 12/10/18 [Suboxone 8 mg-2 mg Sl Film] Gabapentin [Neurontin] 300 mg PO TID 08/19/18 12/10/18 Multivitamin/Iron/Folic Acid 1 tab PO DAILY 08/19/18 12/10/18 [Centrum Adults Tablet] [id number] 1 - 2 tab PO Q6H PRN 12/10/18 12/10/18 [Excedrin] Calcium Carbonate [Calcium] 600 mg PO DAILY 12/10/18 12/10/18 Cholecalciferol [Vitamin D3 (25 4,000 unit PO DAILY 12/10/18 12/10/18 Mcg = 1000 Iu)] Cyanocobalamin (Vitamin B-12) 2,000 mcg PO DAILY 12/10/18 12/10/18 [Vitamin B-12] Furosemide [Lasix] 20 mg PO DAILY PRN 12/10/18 12/10/18 Megestrol Acetate 20 mg PO DAILY 12/10/18 12/10/18 Mirabegron [Myrbetriq] 50 mg PO HS 12/10/18 12/10/18 Previous Rx's Medication Instructions Recorded Pantoprazole [Protonix] 40 mg PO BID #60 tab 08/21/18 Sucralfate [Carafate] 1 gm PO TID #90 tablet 08/21/18 Allergies Allergy/AdvReac Type Severity Reaction Status Date / Time ibuprofen [From Motrin] AdvReac Unknown Verified 12/10/18 15:40 Mushroom AdvReac Nausea & Verified 12/10/18 15:40 Vomiting Review of Systems ROS Statement: Those systems with pertinent positive or pertinent negative responses have been documented in the HPI. ROS Other: All systems not noted in ROS Statement are negative. Past Medical History Past Medical History: Blood Disorder, Heart Failure, COPD, CVA/TIA, Fibromyalgia, GERD/Reflux, Hypertension, Liver Disease, Osteoarthritis (OA) Additional Past Medical History / Comment(s): Past SHIPMAN'S ESOPHAGUS- surgically removed, past hiatal hernia, chronic back and neck pain, stroke 02/2015, TIA 06/2016 with L arm weakness, chronic bronchitis, sinus problems, hx migraines, hx tooth abscess. Pt has Spinal Cord Stimulator. PROBLEMS WITH BALANCE AND HX OF FALLS. Anemia. History of Any Multi-Drug Resistant Organisms: None Reported Past Surgical History: Appendectomy, Back Surgery, Bariatric Surgery, Section, Cholecystectomy, Hernia Repair, Joint Replacement, Orthopedic Surgery, Tubal Ligation Additional Past Surgical History / Comment(s): BACK SURGERY X2 (3rd for mid-back /removal of spinal cord stimulator to be performed on 09/04/18), NECK SURGERYX2, including a fusion, had SPINAL CORD STIMULATOR implanted in back (tens unit), cervical fusion, LAP GABRIEL EN Y (11/06/15), EGDs and EGD with dilation and removal of a staple that had migrated, colonoscopy/benign polypectomy, bilateral knee injections. Open heart surgery with valve replacement, HAD 13 TEETH EXTRACTED. Past Anesthesia/Blood Transfusion Reactions: Motion Sickness, Postoperative Ronak sea & Vomiting (PONV) Additional Past Anesthesia/Blood Transfusion Reaction / Comment(s): SLOW TO WAKE UP FROM ANESTHESIA. Past Psychological History: Depression Smoking Status: Current some day smoker Past Alcohol Use History: None Reported Past Drug Use History: None Reported - Past Family History Sister(s) Family Medical History: Myocardial Infarction (DE) Additional Family Medical History / Comment(s): at age 43 of DE. Mother Family Medical History: Myocardial Infarction (DE) Additional Family Medical History / Comment(s): Mother at age 62 of DE. Father Family Medical History: Myocardial Infarction (DE) Additional Family Medical History / Comment(s): Father in his 40's of a DE. General Exam - General Exam Comments Initial Comments: This is a well-developed asthenic appearing female who is awake alert oriented 3 Limitations: no limitations General appearance: alert, anxious, in distress Head exam: Present: atraumatic, normocephalic, normal inspection Eye exam: Present: normal appearance, PERRL, EOMI. Absent: scleral icterus, conjunctival injection, periorbital swelling ENT exam: Present: mucous membranes dry Neck exam: Present: normal inspection, full ROM, other (No stridor JVD or bruits). Absent: tenderness, meningismus, lymphadenopathy Respiratory exam: Present: decreased breath sounds. Absent: respiratory distress, wheezes, rales, rhonchi, stridor Cardiovascular Exam: Present: regular rate, normal rhythm, normal heart sounds. Absent: systolic murmur, diastolic murmur, rubs, gallop, clicks GI/Abdominal exam: Present: soft, tenderness, normal bowel sounds. Absent: distended, guarding, rebound, rigid, bruit, pulsatile mass Rectal exam: Present: deferred Extremities exam: Present: normal inspection, full ROM, normal capillary refill. Absent: tenderness, pedal edema, joint swelling, calf tenderness Back exam: Present: normal inspection Neurological exam: Present: alert, oriented X3, CN II-XII intact Psychiatric exam: Present: normal affect, normal mood Skin exam: Present: warm, dry, intact, normal color. Absent: rash Course Vital Signs 12/10/18 12/10/18 14:34 15:00 Pulse Rate 91 84 Respiratory 26 H 18 Rate Blood Pressure 192/126 O2 Sat by Pulse 100 Oximetry EKG Findings - EKG Results: EKG: interpreted by ERMD (Sinus rhythm of 83. We'll 1:30 QRS duration 88 QT since QTC 444/521 prolonged QT noted) Medical Decision Making - Medical Decision Making I did discuss the findings with the patient family patient will be admitted Dr. Lara was consulted and the patient will be admitted to his service he did come the emergency department see the patient and her Muller will be consulted also. - Lab Data Result diagrams: 12/10/18 15:05 12/10/18 15:05 Lab Results 12/10/18 12/10/18 12/10/18 Range/Units 15:05 15:05 15:05 WBC 10.9 H (3.8-10.6) k/uL RBC 5.82 H (3.80-5.40) m/uL Hgb 16.5 H (11.4-16.0) gm/dL Hct 52.3 H (34.0-46.0) % MCV 89.9 (80.0-100.0) fL MCH 28.3 (25.0-35.0) pg MCHC 31.5 (31.0-37.0) g/dL RDW 14.3 (11.5-15.5) % Plt Count 343 (150-450) k/uL Neutrophils % 72 % Lymphocytes % 22 % Monocytes % 3 % Eosinophils % 0 % Basophils % 1 % Neutrophils # 7.9 H (1.3-7.7) k/uL Lymphocytes # 2.4 (1.0-4.8) k/uL Monocytes # 0.3 (0-1.0) k/uL Eosinophils # 0.0 (0-0.7) k/uL Basophils # 0.1 (0-0.2) k/uL Sodium 139 (137-145) mmol/L Potassium 4.1 (3.5-5.1) mmol/L Chloride 106 (98-107) mmol/L Carbon Dioxide 21 L (22-30) mmol/L Anion Gap 12 mmol/L BUN 7 (7-17) mg/dL Creatinine 0.69 (0.52-1.04) mg/dL Est GFR (CKD-EPI)AfAm >90 (>60 ml/min/1.73 sqM) Est GFR (CKD-EPI)NonAf >90 (>60 ml/min/1.73 sqM) Glucose 158 H (74-99) mg/dL Calcium 10.2 (8.4-10.2) mg/dL Magnesium 1.9 (1.6-2.3) mg/dL Total Bilirubin 0.7 (0.2-1.3) mg/dL AST 40 H (14-36) U/L ALT 48 (9-52) U/L Alkaline Phosphatase 154 H (38-126) U/L Creatine Kinase 77 (30-135) U/L Troponin I <0.012 (0.000-0.034) ng/mL Total Protein 8.4 H (6.3-8.2) g/dL Albumin 4.9 (3.5-5.0) g/dL Lipase 84 (23-300) U/L - Radiology Data Radiology results: report reviewed (I did review the imaging and report did discuss case with Dr. Leon. They CAT scan does show evidence of a partial small bowel obstruction), image reviewed Disposition Clinical Impression: Partial small bowel obstruction, Dehydration, Intractable vomiting, Diarrhea Disposition: ADMITTED IP TO THIS [facility] Condition: Serious Referrals: Mitch Daniels MD [Primary Care Provider] - 1-2 days
[2018-12-10] MEDS ORDERED: NALOXONE 0.4 MG/ML 1 ML VIAL IV PRN (16:08)
[2018-12-10] MEDS: ONDANSETRON 4 MG/2 ML VIAL IVP PRN ×2 (16:56→19:28)
[2018-12-10] MEDS: SODIUM CHLORIDE 0.9% 1,000 ML IV SCH (16:59)
[2018-12-10] MEDS ORDERED: LABETALOL 5 MG/ML VIAL MDV IVP STA (17:06)
[2018-12-10] MEDS ORDERED: fentaNYL (PF) 50 MCG/ML 2 ML AMP IVP STA (17:33)
[2018-12-10] MEDS ORDERED: hydrALAZINE HCL 20 MG/ML 1 ML VIAL IM STA (17:42)
[2018-12-10] MEDS ORDERED: hydrALAZINE HCL 20 MG/ML 1 ML VIAL IVP STA (17:45)
[2018-12-10] MEDS: HYDROmorphone 1 MG/ML 1 ML SYRINGE IVP PRN (19:30)
[2018-12-10] MEDS ORDERED: KETAMINE 10 MG/ML 20 ML VIAL IV ONE (19:39)
[2018-12-10] MEDS ORDERED: LORazepam 2 MG/ML INJ IV STA (20:20)
[2018-12-10] MEDS: hydrALAZINE HCL 20 MG/ML 1 ML VIAL IVP PRN (20:28)
[2018-12-10] MEDS: IPRATROPIUM-ALBUTEROL 3 ML NEB INHALATION SCH (20:38)
--- NOTE | 2018-12-10 22:11 | P.HPIM ---
History of Present Illness H&P Date: 12/10/18 Chief Complaint: Abdominal pain Patient is a 58-year-old female with a known history of bariatric surgery 3 years ago, recent bowel obstruction in July 2018 status post surgery by Dr. Rodriguez, COPD, ongoing nicotine addiction, history of CVA/TIA, type or myalgia, GERD, hypertension, diabetes type 2 resolved after bariatric surgery, Shipman's esophagus, abdominal incisional hernias and other multiple medical problems came to ER with complaints of nausea vomiting for the past 2 days. Patient says that she has been having diarrhea since the second of this month and off. Patient has been having decreased oral intake. Today patient developed severe abdominal pain which made her to come to ER. Abdominal pain is mainly epigastric and midabdominal. Patient says that she was also having bright red blood per rectum 7 days ago. No fever no chills. No complaints of chest pain or shortness of breath. Patients daughter says that she has an appointment with a specialist at [facility] in FebFebruary 2019 KUB x-ray showed findings suggestive of partial bowel obstruction. Patient was also dehydrated. Patient is a poor historian currently due to intractable pain. History was taken from the medical records and by her daughter at bedside. Review of Systems Constitutional: Patient denies any fever or chills . Denies weakness and lethargic. Abdomen: Patient does have nausea vomiting, diarrhea and abdominal pain. Cardiovascular: Patient denies any chest pain or short of breath no palpitations. Respiratory: patient denied any cough is from production. No shortness of breath Neurologic: Patient denied any numbness or tingling headache. Complete review of systems could not be obtained from the patient. Past Medical History Past Medical History: Blood Disorder, Heart Failure, COPD, CVA/TIA, Fibromyalgia, GERD/Reflux, Hypertension, Liver Disease, Osteoarthritis (OA) Additional Past Medical History / Comment(s): Past SHIPMAN'S ESOPHAGUS- surgically removed, past hiatal hernia, chronic back and neck pain, stroke , TIA 06/2016 with L arm weakness, chronic bronchitis, sinus problems, hx migraines, hx tooth abscess. PROBLEMS WITH BALANCE AND HX OF FALLS. Anemia. 2 new hernias in abdomen History of Any Multi-Drug Resistant Organisms: None Reported Past Surgical History: Appendectomy, Back Surgery, Bariatric Surgery, Section, Cholecystectomy, Hernia Repair, Joint Replacement, Orthopedic Surgery, Tubal Ligation Additional Past Surgical History / Comment(s): BACK SURGERY X2 (3rd for mid- back/removal of spinal cord stimulator to be performed on 09/04/18), NECK SURGERYX2, including a fusion, had SPINAL CORD STIMULATOR implanted in back (tens unit), cervical fusion, LAP GABRIEL EN Y (11/06/15), EGDs and EGD with dilation and removal of a staple that had migrated, colonoscopy/benign polypectomy, bilateral knee injections. Open heart surgery with valve replacement, HAD 13 TEETH EXTRACTED. Past Anesthesia/Blood Transfusion Reactions: Motion Sickness, Postoperative Nausea & Vomiting (PONV) Additional Past Anesthesia/Blood Transfusion Reaction / Comment(s): SLOW TO WAKE UP FROM ANESTHESIA. Past Psychological History: Depression Additional Psychological History / Comment(s): . Smoking Status: Current some day smoker Past Alcohol Use History: None Reported Additional Past Alcohol Use History / Comment(s): Has been smoking approx 28 years, 1 PPD. Past Drug Use History: None Reported - Past Family History Sister(s) Family Medical History: Myocardial Infarction (ND) Additional Family Medical History / Comment(s): at age 43 of ND. Mother Family Medical History: Myocardial Infarction (ND) Additional Family Medical History / Comment(s): Mother at age 62 of ND. Father Family Medical History: Myocardial Infarction (ND) Additional Family Medical History / Comment(s): Father in his 40's of a ND. Medications and Allergies Home Medications Medication Instructions Recorded Confirmed Type Albuterol Nebulized [Ventolin 2.5 mg INHALATION RT-TID 07/07/13 12/10/18 History Nebulized] Venlafaxine HCl [Effexor XR] 150 mg PO BID 01/12/15 12/10/18 History Budesonide/Formoterol Fumarate 2 puff INHALATION RT-BID 11/17/17 12/10/18 History [Symbicort 160-4.5 Mcg Inhaler] Tiotropium Bryan [Spiriva] 1 cap INHALATION RT-DAILY 11/17/17 12/10/18 History Alive Ultra Potency 1 tab PO DAILY 12/10/17 12/10/18 History Acetaminophen/Diphenhydramine 2 tab PO HS 12/30/17 12/10/18 History [Tylenol PM 500-25mg] Methocarbamol [Robaxin-750] 750 mg PO TID 03/17/19 10/17/19 History Midodrine HCl [ProAmantine] 2.5 mg PO BID 05/10/18 12/10/18 History Acetaminophen [Tylenol Arthritis] 1,300 mg PO BID 07/29/18 12/10/18 History Buprenorphine HCl/Naloxone HCl 1 film SL TID 07/29/18 12/10/18 History [Suboxone 8 mg-2 mg Sl Film] Gabapentin [Neurontin] 300 mg PO TID 08/19/18 12/10/18 History Multivitamin/Iron/Folic Acid 1 tab PO DAILY 08/19/18 12/10/18 History [Centrum Adults Tablet] Pantoprazole [Protonix] 40 mg PO BID #60 tab 08/21/18 12/10/18 Rx Sucralfate [Carafate] 1 gm PO TID #90 tablet 08/21/18 12/10/18 Rx [id number]-Kcvp [id number] 1 - 2 tab PO Q6H PRN 12/10/18 12/10/18 History [Excedrin] Calcium Carbonate [Calcium] 600 mg PO DAILY 12/10/18 12/10/18 History Cholecalciferol [Vitamin D3 (25 4,000 unit PO DAILY 12/10/18 12/10/18 History Mcg = 1000 Iu)] Cyanocobalamin (Vitamin B-12) 2,000 mcg PO DAILY 12/10/18 12/10/18 History [Vitamin B-12] Furosemide [Lasix] 20 mg PO DAILY PRN 12/10/18 12/10/18 History Megestrol Acetate 20 mg PO DAILY 12/10/18 12/10/18 History Mirabegron [Myrbetriq] 50 mg PO HS 12/10/18 12/10/18 History Allergies Allergy/AdvReac Type Severity Reaction Status Date / Time ibuprofen [From Motrin] AdvReac Unknown Verified 12/10/18 15:40 Mushroom AdvReac Nausea & Verified 12/10/18 15:40 Vomiting Physical Exam Vitals: Vital Signs Temp Pulse Pulse Resp BP BP Pulse Ox 12/10/18 21:05 97.6 F 103 H 18 170/99 97 12/10/18 20:45 66 18 12/10/18 20:39 95 18 12/10/18 20:25 88 20 177/122 98 10/17/19 19:00 90 18 154/101 98 12/10/18 18:00 81 21 194/127 97 12/10/18 17:00 89 20 173/107 98 12/10/18 16:00 73 12 183/117 100 12/10/18 15:00 84 18 12/10/18 14:34 91 26 H 192/126 100 Intake and Output 12/10/18 12/10/18 12/10/18 06:59 14:59 22:59 Other: Weight 50.802 kg PHYSICAL EXAMINATION: Patient is lying in the bed awake alert and oriented. He appears to be in mild distress due to pain. Lethargic and drowsy. HEENT: Normocephalic. Neck is supple. Pupils reactive. Nostrils clear. Oral cavity is moist. Ears reveal no drainage. Neck reveals no JVD, carotid bruits, or thyromegaly. CHEST EXAMINATION: Trachea is central. Symmetrical expansion. Bibasilar initiating treatment. Lung garcia clear to auscultation and percussion. CARDIAC: Normal S1, S2 with no gallops. No murmurs ABDOMEN: Soft. Bowel sounds sluggish. No organomegaly. No abdominal bruits. Extremities: reveal no edema. No clubbing or cyanosis Neurologically awake, alert, oriented x3 with well-coordinated movements. No focal deficits noted Skin: No rash or skin lesions. Psychiatric: Coperative. Could not be assessed completely Musculoskeletal: No joint swelling or deformity. Normal range of motion. Results CBC & Chem 7: 12/10/18 15:05 12/10/18 15:05 Labs: Abnormal Lab Results - Last 24 Hours (Table) 12/10/18 12/10/18 Range/Units 15:05 15:05 WBC 10.9 H (3.8-10.6) k/uL RBC 5.82 H (3.80-5.40) m/uL Hgb 16.5 H (11.4-16.0) gm/dL Hct 52.3 H (34.0-46.0) % Neutrophils # 7.9 H (1.3-7.7) k/uL Carbon Dioxide 21 L (22-30) mmol/L Glucose 158 H (74-99) mg/dL AST 40 H (14-36) U/L Alkaline Phosphatase 154 H (38-126) U/L Total Protein 8.4 H (6.3-8.2) g/dL Thrombosis Risk Factor Assmnt - DVT/VTE Prophylaxis DVT/VTE Prophylaxis: Pharmacologic Prophylaxis ordered - Choose All That Apply Each Factor Represents 1 point: Age 41-60 years Thrombosis Risk Factor Assessment Total Risk Factor Score: 1 Thrombosis Risk Factor Assessment Level: Low Risk Assessment and Plan Assessment: Intractable abdominal pain secondary to partial small bowel obstruction. Recent history of nausea vomiting and diarrhea History of small bowel obstruction status post surgery in July 2018 Previous history of gastric bypass surgery about 3 years ago Fibromyalgia GERD Shipman's esophagus status post surgically removed Chronic back pain and neck pain History of CVA/TIA with mild left-sided weakness Migraine headaches History of multiple falls Uncontrolled hypertension Diabetes type 2 resolved after bariatric surgery COPD stable. History of heart valve replacement several years ago Depression/anxiety Ongoing nicotine addiction DVT prophylaxis with heparin subcu Plan: Patient be continued on IV hydration and pain management and treated co nservatively at this time. Patient is on multiple pain medications including Suboxone, Robaxin, elevated, Tylenol and NEURONTIN. WILL HOLD HOME MEDICATIONS AND CONTINUE WITH PAIN management with Dilaudid. Catapres patch will be applied for better blood pressure control. Breathing treatments as needed. Gen. surgery was consulted for further evaluation. Prognosis is guarded. Time with Patient: Greater than 30
[2018-12-10] MEDS: cloNIDine 0.1 MG/24HR PATCH TRANSDERM SCH (23:10)
[2018-12-10] MEDS: HEPARIN SODIUM,PORCINE 5,000 UNIT/ML 1 ML VIAL SQ SCH (23:11)
[2018-12-10] MEDS: PANTOPRAZOLE 40 MG/10 ML VIAL IVP SCH (23:11)
[2018-12-11] MEDS: HYDROmorphone 1 MG/ML 1 ML SYRINGE IVP PRN ×3 (01:08→12:33)
[2018-12-11] MEDS: SODIUM CHLORIDE 0.9% 1,000 ML IV SCH ×4 (01:13→21:43)
[2018-12-11] MEDS: IPRATROPIUM-ALBUTEROL 3 ML NEB INHALATION SCH ×5 (02:35→20:49)
[2018-12-11] MEDS: hydrALAZINE HCL 20 MG/ML 1 ML VIAL IVP PRN ×2 (03:20→20:04)
[2018-12-11 08:53] LABS: Basophils % (A) 0 %; Eosinophils % (A) 0 %; HGB 15.1 gm/dL (11.4-16.0); Lymphocytes # (A) 1.6 k/uL (1.0-4.8); Lymphocytes % (A) 9 %; MCH 29.1 pg (25.0-35.0); MCHC 32.7 g/dL (31.0-37.0); MCV 88.8 fL (80.0-100.0); Mean Platelet Volume 7.6; Monocytes # (A) 0.6 k/uL (0-1.0); Monocytes % (A) 4 %; Neutrophils # (A) 15.8 k/uL (1.3-7.7); Neutrophils % (A) 87 %; Platelet Count 309 k/uL (150-450); RBC 5.19 m/uL (3.80-5.40); RDW 14.5 % (11.5-15.5); WBC 18.1 k/uL (3.8-10.6)
[2018-12-11 09:04] LABS: African American GFR (CKD) >90 (>60 ml/min/1.73 sqM); Anion Gap 11 mmol/L; Blood Urea Nitrogen 10 mg/dL (7-17); Calcium 9.1 mg/dL (8.4-10.2); Carbon Dioxide 18 mmol/L (22-30); Chloride 111 mmol/L (98-107); Glucose 133 mg/dL (74-99); Non-African American GFR(CKD) >90 (>60 ml/min/1.73 sqM); Sodium 140 mmol/L (137-145)
[2018-12-11] MEDS ORDERED: HYDROmorphone 1 MG/ML 1 ML SYRINGE IVP ONE (09:20)
[2018-12-11] MEDS: SYMBICORT 160-4.5 MCG INHALER INHALATION SCH ×4 (09:28→21:01)
[2018-12-11] MEDS: PANTOPRAZOLE 40 MG/10 ML VIAL IVP SCH ×2 (09:52→21:20)
[2018-12-11 11:59] LABS: Appearance,Urine Clear (Clear); Bilirubin,Urine Negative (Negative); Blood,Urine Negative (Negative); Color,Urine Yellow; Glucose,Urine (UA) Negative (Negative); Ketones,Urine Negative (Negative); Leukocyte Esterase,Urine Negative (Negative); Nitrite,Urine Negative (Negative); PH, Urine 5.5 (5.0-8.0); Protein,Urine Trace (Negative); Specific Gravity,Urine 1.018 (1.001-1.035); Urobilinogen,Urine <2.0 mg/dL (<2.0)
[2018-12-11] MEDS: ONDANSETRON 4 MG/2 ML VIAL IVP PRN (13:19)
[2018-12-11] MEDS: MORPHINE SULFATE 4 MG/ML SYRINGE IVP PRN (15:26)
[2018-12-11] MEDS: PIPERACILLIN-TAZOBACTAM 3.375 GM in SODIUM CHLORIDE 0.9% 100 ML IVPB SCH (15:26)
--- NOTE | 2018-12-11 15:51 | P.GSCN ---
History of Present Illness Consult date: 12/10/18 History of present illness: DATE OF SERVICE: 12/10/2018 CHIEF COMPLAINT: Abdominal pain HISTORY OF PRESENT ILLNESS: Kassy Lopez is a 58-year-old female who presents with acute onset abdominal pain from later on this afternoon. Her history is obtained by her family members. They report that 2 weeks ago she had swelling of the abdomen without pain. She was tolerating diet. She was pending an appointment to [facility] for unclear reason. After having acute abdominal pain, she presented to emergency room. She had intractable nausea and vomiting. She had an abdominal x-ray consistent with small bowel obstruction. She also presented with acute dehydration. She presents with low appetite. She does have history of chronic pain and takes Suboxone where multiple narcotics were needed to control her abdominal pain. She came in with severe hypertension. Her ideal body weight for a 5' 6" frame is 154 pound. Her highest weight was 278 pounds. Today she comes in weighing 130 pounds from 116 pounds, 4 months ago. She has gained 14 pounds 4 months. She has lost 149 pounds lifetime. Body mass index is reduced from 45.0 down to 21.0. PAST MEDICAL HISTORY: 1. Hernandez esophagus. 2. Gastroesophageal reflux disease, now resolved. 3. Osteoarthritis, now resolved. 4. Diabetes type 2 with gastroparesis, now resolved. 5. Depression. 6. Hypertension, now resolved. 7. Chronic obstructive pulmonary disease, now improved. 8. History of congestive heart failure. 9. Morbid obesity, BMI 45.0, initial 10. History of intussusception PAST SURGICAL HISTORY: 1. Back surgery x3 including fusion. 2. TENS unit infusion. 3. Neck fusion. 4. Right knee injections. 5. Colonoscopy. 6. Upper endoscopy. 7. Appendectomy. 8. section. 9. Cholecystectomy. 10. Tubal ligation. 11. Status post gastric bypass. 12. Cardiac catheterization. 13. Valvular replacement, 07/24/2016 14. Intussusception via laparotomy, July 2018 MEDICATIONS: See list ALLERGIES: See list FAMILY HISTORY: Denies any Crohn's disease or ulcerative colitis. Denies any lupus within her family. SOCIAL HISTORY: Tobacco use over 25 years, 1 pack per day in remission. REVIEW OF SYSTEMS: CONSTITUTIONAL: Her ideal body weight for a 5' 6" frame is 154 pound. Her highes t weight was 278 pounds. Body mass index is reduced from 45.0. ENDOCRINE: Resolved diabetes type 2. No hypothyroidism. RESPIRATORY: Resolved obstructive sleep apnea. No asthma. CARDIOVASCULAR: History of valvular replacement for congestive heart failure. GASTROINTESTINAL: No reports of dumping syndrome. Past history of intussusception. HEENT: Edentulous. No difficulty with vision or hearing. MUSCULOSKELETAL: Reports osteoarthritis of the back including hips. NEURO: No reports of recent stroke or seizure disorder. History of chronic pain. HEMATOLOGIC: No recent DVTs or pulmonary embolisms. PSYCH: History chronic pain including depression. Slight to moderate reduction in her antidepressant medications. PHYSICAL EXAM: VITAL SIGNS: 5 foot 6, 129 pounds. Body mass is 21.0 ABDOMEN: Diffusely tender. MUSCULOSKELETAL: No clubbing, cyanosis, or edema. GENERAL: Well-developed female in no acute distress. CARDIOVASCULAR: Regular rate and rhythm, 2+ distal pulses. HEENT: Head atraumatic, normocephalic. No nasal drainage. Hears is conversational speech. CHEST: Nonlabored respirations. Equal bilateral excursions. NECK: Supple without lymphadenopathy. NEURO: No focal or lateralizing signs. Cranial nerves II through XII grossly intact. PSYCH: Appropriate affect. Alert and oriented to person, place and time. SKIN: Well perfused. Good skin turgor. STUDIES: CT of the abdomen and pelvis from 2 weeks ago reviewed with lack of contrast. No evidence of abdominal wall hernias. No evidence of small bowel dilation. Abdominal x-ray reviewed with multiple air-fluid levels consistent with small bowel obstruction. REPORTS: Abdominal x-ray consistent with small bowel obstruction. LABS: WBC over 10,000. ASSESSMENT: 1. Small bowel obstruction 2. Dehydration PLAN: 1. Recommend IV fluid hydration. 2. Will need exploratory laparotomy. Past Medical History Past Medical History: Blood Disorder, Heart Failure, COPD, CVA/TIA, Fibr omyalgia, GERD/Reflux, Hypertension, Liver Disease, Osteoarthritis (OA) Additional Past Medical History / Comment(s): Past HERNANDEZ'S ESOPHAGUS- surgically removed, past hiatal hernia, chronic back and neck pain, stroke 02/2015, TIA 06/2016 with L arm weakness, chronic bronchitis, sinus problems, hx migraines, hx tooth abscess. PROBLEMS WITH BALANCE AND HX OF FALLS. Anemia. 2 new hernias in abdomen History of Any Multi-Drug Resistant Organisms: None Reported Past Surgical History: Appendectomy, Back Surgery, Bariatric Surgery, Section, Cholecystectomy, Hernia Repair, Joint Replacement, Orthopedic Surgery, Tubal Ligation Additional Past Surgical History / Comment(s): BACK SURGERY X2 (3rd for mid- back/removal of spinal cord stimulator to be performed on 09/04/18), NECK SURGERYX2, including a fusion, had SPINAL CORD STIMULATOR implanted in back (tens unit), cervical fusion, LAP GABRIEL EN Y (11/06/15), EGDs and EGD with dilation and removal of a staple that had migrated, colonoscopy/benign polypectomy, bilateral knee injections. Open heart surgery with valve replacement, HAD 13 TEETH EXTRACTED. Past Anesthesia/Blood Transfusion Reactions: Motion Sickness, Postoperative Nausea & Vomiting (PONV) Additional Past Anesthesia/Blood Transfusion Reaction / Comm: SLOW TO WAKE UP FROM ANESTHESIA. Past Psychological History: Depression Additional Psychological History / Comment(s): . Smoking Status: Current some day smoker Past Alcohol Use History: None Reported Additional Past Alcohol Use History / Comment(s): Has been smoking approx 28 years, 1 PPD. Past Drug Use History: None Reported - Past Family History Sister(s) Family Medical History: Myocardial Infarction (AL) Additional Family Medical History / Comment(s): at age 43 of AL. Mother Family Medical History: Myocardial Infarction (AL) Additional Family Medical History / Comment(s): Mother at age 62 of [place]. Father Family Medical History: Myocardial Infarction (AL) Additional Family Medical History / Comment(s): Father in his 40's of a AL. Medications and Allergies Home Medications Medication Instructions Recorded Confirmed Type Albuterol Nebulized [Ventolin 2.5 mg INHALATION RT-TID 07/07/13 12/10/18 History Nebulized] Venlafaxine HCl [Effexor XR] 150 mg PO BID 01/12/15 12/10/18 History Budesonide/Formoterol Fumarate 2 puff INHALATION RT-BID 11/17/17 12/10/18 History [Symbicort 160-4.5 Mcg Inhaler] Tiotropium Dewey [Spiriva] 1 cap INHALATION RT-DAILY 11/17/17 12/10/18 History Alive Ultra Potency 1 tab PO DAILY 12/10/17 12/10/18 History Acetaminophen/Diphenhydramine 2 tab PO HS 12/30/17 12/10/18 History [Tylenol PM 500-25mg] Methocarbamol [Robaxin-750] 750 mg PO TID 05/10/18 12/10/18 History Midodrine HCl [ProAmantine] 2.5 mg PO BID 05/10/18 12/10/18 History Acetaminophen [Tylenol Arthritis] 1,300 mg PO BID 07/29/18 12/10/18 History Buprenorphine HCl/Naloxone HCl 1 film SL TID 07/29/18 12/10/18 History [Suboxone 8 mg-2 mg Sl Film] Gabapentin [Neurontin] 300 mg PO TID 08/19/18 12/10/18 History Multivitamin/Iron/Folic Acid 1 tab PO DAILY 08/19/18 12/10/18 History [Centrum Adults Tablet] Pantoprazole [Protonix] 40 mg PO BID #60 tab 08/21/18 12/10/18 Rx Sucralfate [Carafate] 1 gm PO TID #90 tablet 08/21/18 12/10/18 Rx [id number]-Emed [id number] 1 - 2 tab PO Q6H PRN 12/10/18 12/10/18 History [Excedrin] Calcium Carbonate [Calcium] 600 mg PO DAILY 12/10/18 12/10/18 History Cholecalciferol [Vitamin D3 (25 4,000 unit PO DAILY 12/10/18 12/10/18 History Mcg = 1000 Iu)] Cyanocobalamin (Vitamin B-12) 2,000 mcg PO DAILY 12/10/18 12/10/18 History [Vitamin B-12] Furosemide [Lasix] 20 mg PO DAILY PRN 12/10/18 12/10/18 History Megestrol Acetate 20 mg PO DAILY 12/10/18 12/10/18 History Mirabegron [Myrbetriq] 50 mg PO HS 12/10/18 12/10/18 History Allergies Allergy/AdvReac Type Severity Reaction Status Date / Time ibuprofen [From Motrin] AdvReac Unknown Verified 12/10/18 15:40 Mushroom AdvReac Nausea & Verified 12/10/18 15:40 Vomiting Surgical - Exam Vital Signs Pulse Resp BP Pulse Ox 91 26 H 192/126 100 12/10/18 14:34 12/10/18 14:34 12/10/18 14:34 12/10/18 14:34 Results - Labs 12/11/18 07:28 12/11/18 07:28 Abnormal Lab Results - Last 24 Hours (Table) 12/11/18 12/11/18 12/11/18 Range/Units 07:28 07:28 11:40 WBC 18.1 H (3.8-10.6) k/uL Neutrophils # 15.8 H (1.3-7.7) k/uL Chloride 111 H (98-107) mmol/L Carbon Dioxide 18 L (22-30) mmol/L Glucose 133 H (74-99) mg/dL Urine Protein Trace H (Negative) Diabetes panel 12/11/18 Range/Units 07:28 Sodium 140 (137-145) mmol/L Potassium 4.0 (3.5-5.1) mmol/L Chloride 111 H (98-107) mmol/L Carbon Dioxide 18 L (22-30) mmol/L BUN 10 (7-17) mg/dL Creatinine 0.63 (0.52-1.04) mg/dL Glucose 133 H (74-99) mg/dL Calcium 9.1 (8.4-10.2) mg/dL Calcium panel 12/11/18 Range/Units 07:28 Calcium 9.1 (8.4-10.2) mg/dL Pituitary panel 12/11/18 Range/Units 07:28 Sodium 140 (137-145) mmol/L Potassium 4.0 (3.5-5.1) mmol/L Chloride 111 H (98-107) mmol/L Carbon Dioxide 18 L (22-30) mmol/L BUN 10 (7-17) mg/dL Creatinine 0.63 (0.52-1.04) mg/dL Glucose 133 H (74-99) mg/dL Calcium 9.1 (8.4-10.2) mg/dL Adrenal panel 12/11/18 Range/Units 07:28 Sodium 140 (137-145) mmol/L Potassium 4.0 (3.5-5.1) mmol/L Chloride 111 H (98-107) mmol/L Carbon Dioxide 18 L (22-30) mmol/L BUN 10 (7-17) mg/dL Creatinine 0.63 (0.52-1.04) mg/dL Glucose 133 H (74-99) mg/dL Calcium 9.1 (8.4-10.2) mg/dL Assessment and Plan (1) Dehydration Current Visit: Yes Status: Acute Code(s): E86.0 - DEHYDRATION SNOMED Code(s): 39616859 (2) Intractable vomiting Current Visit: Yes Status: Acute Code(s): R11.10 - VOMITING, UNSPECIFIED SNOMED Code(s): 189325910 (3) Partial small bowel obstruction Current Visit: Yes Status: Acute Code(s): K56.600 - PARTIAL INTESTINAL OBSTRUCTION, UNSPECIFIED TO CAUSE SNOMED Code(s): 995735055 (4) Hypertension, accelerated Current Visit: Yes Status: Acute Code(s): I10 - ESSENTIAL (PRIMARY) HYPERTENSION SNOMED Code(s): 26322968
--- NOTE | 2018-12-11 15:57 | P.PN ---
Subjective Progress Note Date: 12/11/18 Principal diagnosis: Partial small bowel obstruction Leukocytosis rule out sepsis 58-year-old female with a known history of bariatric surgery 3 years ago, recent bowel obstruction in July 2018 status post surgery by Dr. Rodriguez, COPD, ongoing nicotine addiction, history of CVA/TIA, type or myalgia, GERD, hypertension, diabetes type 2 resolved after bariatric surgery, Hernandez's esophagus, abdominal incisional hernias and other multiple medical problems came to ER with complaints of nausea vomiting for the past 2 days. Patient is admitted for small bowel obstruction for surgical evaluation 12/12/2018 Patient is seen and evaluated with family members at bedside; continues to complain of severe uncontrolled abdominal pain; patient and family report that Dilaudid is making pain worse; patient agrees to use IV morphine for pain control Vital signs with temperature of 98.4, pulse 113, respiration 18 and blood pressure 164/100 and SpO2 of 96% on room air Lab review shows a white blood count of 18.1 which has markedly escalated from 10.9 yesterday with neutrophil count of 15.8 We will start patient on IV Zosyn and monitor pro-calcitonin and CRP levels; blood and urine cultures are ordered; we will consult ID for further recommendations Gen. surgery is following and patient is for possibly exploratory laparotomy this afternoon Objective - Vital Signs Vital signs: Vital Signs Temp 97.8 F 12/11/18 08:00 Pulse 104 H 12/11/18 08:18 Resp 18 12/11/18 08:00 BP 134/90 12/11/18 08:00 Pulse Ox 95 12/11/18 08:00 Intake & Output 12/10/18 12/11/18 12/11/18 18:59 06:59 18:59 Output Total 0 Balance 0 Weight 50.802 kg 59 kg Output: Urine 0 - Exam Patient is lying in the bed awake alert and oriented. He appears to be in mild distress due to pain. Lethargic and drowsy. HEENT: Normocephalic. Neck is supple. Pupils reactive. Nostrils clear. Oral cavity is moist. Ears reveal no drainage. Neck reveals no JVD, carotid bruits, or thyromegaly. CHEST EXAMINATION: Trachea is central. Symmetrical expansion. Bibasilar initiating treatment. Lung garcia clear to auscultation and percussion. CARDIAC: Normal S1, S2 with no gallops. No murmurs ABDOMEN: Soft. Bowel sounds sluggish. No organomegaly. No abdominal bruits. Extremities: reveal no edema. No clubbing or cyanosis - Labs CBC & Chem 7: 12/11/18 07:28 12/11/18 07:28 Labs: Abnormal Lab Results - Last 24 Hours (Table) 12/10/18 12/10/18 12/11/18 Range/Units 15:05 15:05 07:28 WBC 10.9 H 18.1 H (3.8-10.6) k/uL RBC 5.82 H (3.80-5.40) m/uL Hgb 16.5 H (11.4-16.0) gm/dL Hct 52.3 H (34.0-46.0) % Neutrophils # 7.9 H 15.8 H (1.3-7.7) k/uL Chloride (98-107) mmol/L Carbon Dioxide 21 L (22-30) mmol/L Glucose 158 H (74-99) mg/dL AST 40 H (14-36) U/L Alkaline Phosphatase 154 H (38-126) U/L Total Protein 8.4 H (6.3-8.2) g/dL Urine Protein (Negative) 12/11/18 12/11/18 Range/Units 07:28 11:40 WBC (3.8-10.6) k/uL RBC (3.80-5.40) m/uL Hgb (11.4-16.0) gm/dL Hct (34.0-46.0) % Neutrophils # (1.3-7.7) k/uL Chloride 111 H (98-107) mmol/L Carbon Dioxide 18 L (22-30) mmol/L Glucose 133 H (74-99) mg/dL AST (14-36) U/L Alkaline Phosphatase (38-126) U/L Total Protein (6.3-8.2) g/dL Urine Protein Trace H (Negative) Assessment and Plan Assessment: Intractable abdominal pain secondary to partial small bowel obstruction. Recent history of nausea vomiting and diarrhea History of small bowel obstruction status post surgery in July 2018 Previous history of gastric bypass surgery about 3 years ago Fibromyalgia GERD Hernandez's esophagus status post surgically removed Chronic back pain and neck pain History of CVA/TIA with mild left-sided weakness Migraine headaches History of multiple falls Uncontrolled hypertension Diabetes type 2 resolved after bariatric surgery COPD stable. History of heart valve replacement several years ago Depression/anxiety Ongoing nicotine addiction DVT prophylaxis with heparin subcu Plan: Patient be continued on IV hydration and pain management and treated conservatively at this time. Patient is on multiple pain medications including Suboxone, Robaxin, elevated, Tylenol and NEURONTIN. WILL HOLD HOME MEDICATIONS AND CONTINUE WITH PAIN management with Dilaudid. Catapres patch will be applied for better blood pressure control. Breathing treatments as needed. Gen. surgery was consulted for further evaluation. Prognosis is guarded. Time with Patient: Greater than 30
[2018-12-11] MEDS ORDERED: SODIUM CHLORIDE 0.9% 1,000 ML IV ONE (16:04)
[2018-12-11] MEDS ORDERED: fentaNYL (PF) 50 MCG/ML 2 ML AMP IVP ONE (16:29)
[2018-12-11] MEDS ORDERED: MIDAZOLAM 2 MG/2 ML VIAL IVP ONE (16:29)
[2018-12-11] MEDS ORDERED: NALBUPHINE 10 MG/ML (1 ML AMP) IV PRN (16:48)
[2018-12-11] MEDS ORDERED: diphenhydrAMINE 50 MG/ML 1 ML VIAL IVP PRN (16:48)
[2018-12-11] MEDS ORDERED: NALOXONE 0.4 MG/ML 1 ML VIAL IV PRN (16:48)
[2018-12-11] MEDS ORDERED: ROPIVACAINE 250 MG, HYDROMORPHONE (PF) 5 MG in SODIUM CHLORIDE 0.9% 200 ML EPIDURAL PRN (16:48)
--- NOTE | 2018-12-11 17:01 | P.HPADDEND ---
H&P Addendum H&P Addendum Date: 12/11/18 Patient persistently having more than 5/10 pain. Abdominal x-ray confirmed small bowel obstruction. Epidural has been placed. Benefits risks of surgery including exploratory laparotomy, small bowel resection, possible ostomy creation were reviewed. Family notified that I will be out of town with surg ical coverage.
[2018-12-11] MEDS ORDERED: PROPOFOL 10 MG/ML 20 ML VIAL IV ONE (17:18)
[2018-12-11] MEDS ORDERED: fentaNYL (PF) 50 MCG/ML 2 ML AMP ONE (17:18)
[2018-12-11] MEDS ORDERED: HYDROmorphone (PF) 1 MG/ML ONE (17:18)
[2018-12-11] MEDS ORDERED: NEOSTIGMINE 1 MG/ML 10 ML VIAL ONE (17:18)
[2018-12-11] MEDS ORDERED: MIDAZOLAM 2 MG/2 ML VIAL ONE (17:18)
[2018-12-11] MEDS ORDERED: SUCCINYLCHOLINE CHLORIDE 100 MG/5 ML SYR IV ONE (17:18)
[2018-12-11] MEDS ORDERED: GLYCOPYRROLATE 0.2 MG/ML 2 ML VIAL ONE (17:18)
[2018-12-11] MEDS ORDERED: ROCURONIUM BROMIDE 10 MG/ML 10 ML VIAL IV ONE (17:18)
[2018-12-11] MEDS ORDERED: LIDOCAINE 1% INJ 10MG/ML (20 ML MDV) ONE (17:18)
[2018-12-11] MEDS ORDERED: LACTATED RINGERS 1,000 ML IV ONE ×2 (18:00→18:56)
--- NOTE | 2018-12-11 19:22 | P.OP ---
Date of Procedure: 12/11/18 Description of Procedure: SURGEON: ALAN MATTHEW MD PRODUCTION OR PLANT ENGINEER: NONE. PREOPERATIVE DIAGNOSIS: 1. Acute small bowel obstruction 2. Accelerated hypertension 3. Chronic pain syndrome 4. Restless leg syndrome. 5. Chronic obstructive pulmonary disease. 6. Iron deficiency anemia. 7. History of gastric bypass 8. History of multiple abdominal surgeries 9. History of valvular replacement 10. Sepsis POSTOPERATIVE DIAGNOSIS: 1. Acute small bowel obstruction with near strangulation due to adhesive band 2. Accelerated hypertension 3. Chronic pain syndrome 4. Restless leg syndrome. 5. Chronic obstructive pulmonary disease. 6. Iron deficiency anemia. 7. History of gastric bypass 8. History of multiple abdominal surgeries 9. Abdominal ascites 10. Sepsis due to small bowel ischemia OPERATION: 1. Open exploratory laparotomy with lysis of adhesions 2. Drainage of abdominal ascites 1 L 3. Application of PREVENA 20 cm incisional length wound VAC system Anesthesia: GETA, epidural Estimated Blood Loss (ml): 20 Pathology: none sent Condition: stable Disposition: floor Complications: None Operative Findings: 1. Abdominal ascites clear over 1 L aspirated from the abdomen 2. Narrow small bowel strangulation involving terminal ileum 30 cm 3. Short small bowel mesentery at risk for small bowel volvulus 4. Single adhesive band with near strangulation of jejunum mesentery released 5. All small bowel viable with immediate revascularization and filling into the cecum INDICATIONS: The patient is a 58-year-old female who presents with acute small bowel obstruction. Surgical intervention was advised with exploratory laparotomy possible bowel resection. Benefits and risks of the procedures were discussed. Informed consent was obtained. DESCRIPTION: The patient was brought to the operating room. An epidural was placed per anesthesia. After general induction, a Ma catheter was placed. The abdomen was prepped and draped in standard sterile fashion. Ioban draping was also placed. Prior to incision, a timeout protocol was confirmed with surgical team regarding patient's name including procedures to be performed. Preoperative medications were confirmed. A #10 blade was used to enter along the epigastrium and extended down to the pubis. Carefully the abdomen was entered using electro- Bovie cautery. The small bowel was grossly dilated. Ascites of over 1000 mL was drained from the abdomen. Severe small bowel dilation involving the jejunojejunostomy and proximal common channel was identified. No recurrent intussusception was found. A tight adhesive band with near strangulation of the distal ileum and mid body to jejunum was identified. The adhesive band was 8 mm in thickness and here to the retroperitoneum of the abdomen. The adhesive band was sharply taken down using Enseal energy device. The small bowel was investigated from the ileocecal valve to the jejunojejunostomy and to the Cherie limb. Jejunojejunostomy mesenteric defect was completely scarred. The Dias defect was unremarkable. All small bowel was viable. The rest of the small bowel became decompressed as the effluent and obstruction resolved with drainage into the cecum and large intestine. Hemostasis was excellent throughout the out the entire case. Blood loss was less than 20 mL. All sponge counts were verified as correct. The abdomen was closed using double stranded 0 PDS after irrigating the subcutaneous tissue. The subcutaneous tissue was reapproximated using 3-0 Vicryl in a running septic left fashion. An PREVENA 20-cm incisional length dressing was placed. At the end of the procedure, needle, sponge, and instrument count had been verified correct by the surgical device sales representative. The patient was sent to the postanesthesia care unit in stable condition. Intraoperative findings were described to the patient's family who were very pleased with the level of care. Postoperative recovery in detail was described.
[2018-12-11] MEDS ORDERED: ALBUTEROL NEBULIZED 2.5 MG/3 ML INHALATION SCH (20:00)
[2018-12-11] MEDS: HEPARIN SODIUM,PORCINE 5,000 UNIT/ML 1 ML VIAL SQ SCH ×2 (21:32→21:33)
--- NOTE | 2018-12-12 00:02 | P.CONS ---
History of Present Illness - Reason for Consult Consult date: 12/11/18 Leukocytosis Requesting physician: Jada Ornelas - Chief Complaint Abdominal pain 1 day - History of Present Illness Patient is a 58-year-old female presenting to the ER at [facility] with chief complaints of abdominal pain that started yesterday patient pain has been mostly in the epigastric area, the patient describing the pain to be sharp almost 10 out of 10 in severity with no radiation associated nausea and vomiting and the patient also have some loose stool but no blood or mucus in the stools, the patient denies high-grade fever but did have some chills on arrival clear the patient did have a KUB x-ray we did shows evidence of proximal small bowel obstruction initial white count was normal however a repeat white count this morning is 18,000 that prompted this infection disease consultation for the patient will be switched over to Zosyn patient is scheduled to go for surgery this afternoon for exploratory laparotomy, patient currently denies having any URI symptoms no chest pain shortness of breath or cough and no urinary symptoms Review of Systems Positive point has been mentioned in the HPI rest of the systems are negative Past Medical History Past Medical History: Blood Disorder, Heart Failure, COPD, CVA/TIA, Fibromyalgia, GERD/Reflux, Hypertension, Liver Disease, Osteoarthritis (OA) Additional Past Medical History / Comment(s): Past SHIPMAN'S ESOPHAGUS- surgically removed, past hiatal hernia, chronic back and neck pain, stroke 02/2015, TIA 06/2016 with L arm weakness, chronic bronchitis, sinus problems, hx migraines, hx tooth abscess. PROBLEMS WITH BALANCE AND HX OF FALLS. Anemia. 2 new hernias in abdomen History of Any Multi-Drug Resistant Organisms: None Reported Past Surgical History: Appendectomy, Back Surgery, Bariatric Surgery, Section, Cholecystectomy, Hernia Repair, Joint Replacement, Orthopedic Surgery, Tubal Ligation Additional Past Surgical History / Comment(s): BACK SURGERY X2 (3rd for mid- back/removal of spinal cord stimulator to be performed on 09/04/18), NECK SURGERYX2, including a fusion, had SPINAL CORD STIMULATOR implanted in back (tens unit), cervical fusion, LAP GABRIEL EN Y (11/06/15), EGDs and EGD with d ilation and removal of a staple that had migrated, colonoscopy/benign polypectomy, bilateral knee injections. Open heart surgery with valve replacement, HAD 13 TEETH EXTRACTED. Past Anesthesia/Blood Transfusion Reactions: Motion Sickness, Postoperative Nausea & Vomiting (PONV) Additional Past Anesthesia/Blood Transfusion Reaction / Comm: SLOW TO WAKE UP FROM ANESTHESIA. Past Psychological History: Depression Additional Psychological History / Comment(s): . Smoking Status: Current some day smoker Past Alcohol Use History: None Reported Additional Past Alcohol Use History / Comment(s): Has been smoking approx 28 years, 1 PPD. Past Drug Use History: None Reported - Past Family History Sister(s) Family Medical History: Myocardial Infarction ([place]) Additional Family Medical History / Comment(s): at age 43 of [place]. Mother Family Medical History: Myocardial Infarction ([place]) Additional Family Medical History / Comment(s): Mother at age 62 of [place]. Father Family Medical History: Myocardial Infarction ([place]) Additional Family Medical History / Comment(s): Father in his 40's of a [place]. Medications and Allergies Home Medications Medication Instructions Recorded Confirmed Type Albuterol Nebulized [Ventolin 2.5 mg INHALATION RT-TID 07/07/13 12/10/18 History Nebulized] Venlafaxine HCl [Effexor XR] 150 mg PO BID 01/12/15 12/10/18 History Budesonide/Formoterol Fumarate 2 puff INHALATION RT-BID 11/17/17 12/10/18 History [Symbicort 160-4.5 Mcg Inhaler] Tiotropium [place] [Spiriva] 1 cap INHALATION RT-DAILY 11/17/17 12/10/18 History Alive Ultra Potency 1 tab PO DAILY 12/10/17 12/10/18 History Acetaminophen/Diphenhydramine 2 tab PO HS 12/30/17 12/10/18 History [Tylenol PM 500-25mg] Methocarbamol [Robaxin-750] 750 mg PO TID 05/10/18 12/10/18 History Midodrine HCl [ProAmantine] 2.5 mg PO BID 05/10/18 12/10/18 History Acetaminophen [Tylenol Arthritis] 1,300 mg PO BID 07/29/18 12/10/18 History Buprenorphine HCl/Naloxone HCl 1 film SL TID 07/29/18 12/10/18 History [Suboxone 8 mg-2 mg Sl Film] Gabapentin [Neurontin] 300 mg PO TID 08/19/18 12/10/18 History Multivitamin/Iron/Folic Acid 1 tab PO DAILY 08/19/18 12/10/18 History [Centrum Adults Tablet] Pantoprazole [Protonix] 40 mg PO BID #60 tab 08/21/18 12/10/18 Rx Sucralfate [Carafate] 1 gm PO TID #90 tablet 08/21/18 12/10/18 Rx [id number] 1 - 2 tab PO Q6H PRN 12/10/18 12/10/18 History [Excedrin] Calcium Carbonate [Calcium] 600 mg PO DAILY 12/10/18 12/10/18 History Cholecalciferol [Vitamin D3 (25 4,000 unit PO DAILY 12/10/18 12/10/18 History Mcg = 1000 Iu)] Cyanocobalamin (Vitamin B-12) 2,000 mcg PO DAILY 12/10/18 12/10/18 History [Vitamin B-12] Furosemide [Lasix] 20 mg PO DAILY PRN 12/10/18 12/10/18 History Megestrol Acetate 20 mg PO DAILY 12/10/18 12/10/18 History Mirabegron [Myrbetriq] 50 mg PO HS 12/10/18 12/10/18 History Allergies Allergy/AdvReac Type Severity Reaction Status Date / Time ibuprofen [From Motrin] AdvReac Unknown Verified 12/10/18 15:40 Mushroom AdvReac Nausea & Verified 12/10/18 15:40 Vomiting Physical Exam Vitals: Vital Signs Temp Pulse Pulse Resp BP BP Pulse Ox 12/11/18 08:18 104 H 12/11/18 08:10 108 H 12/11/18 08:00 97.8 F 113 H 18 134/90 95 12/11/18 04:30 113 H 18 134/87 97 12/11/18 03:19 109 H 18 159/101 97 12/11/18 02:45 104 H 12/11/18 02:35 108 H 12/11/18 00:00 108 H 18 152/99 97 12/10/18 23:00 113 H 16 155/103 92 L 12/10/18 22:00 151/99 12/10/18 21:30 161/105 12/10/18 21:05 97.6 F 103 H 18 170/99 97 12/10/18 20:45 66 18 12/10/18 20:39 95 18 12/10/18 20:25 88 20 177/122 98 12/10/18 19:00 90 18 154/101 98 12/10/18 18:00 81 21 194/127 97 12/10/18 17:00 89 20 173/107 98 12/10/18 16:00 73 12 183/117 100 12/10/18 15:00 84 18 12/10/18 14:34 91 26 H 192/126 100 Intake and Output 12/10/18 12/11/18 12/11/18 22:59 06:59 14:59 Output Total 0 Balance 0 Output: Urine 0 Other: Weight 59 kg GENERAL DESCRIPTION: Middle-aged female lying in bed, no distress. No tachypnea or accessory muscle of respiration use. HEENT: Shows Pallor , no scleral icterus. Oral mucous membrane is dry. No pharyngeal erythema or thrush NECK: Trachea central, no thyromegaly. LUNGS: Unlabored breathing. Clear to auscultation anteriorly. No wheeze or crackle. HEART: S1, S2, regular rate and rhythm. No loud murmur ABDOMEN: Soft, epigastric tenderness ,no guarding or rigidity, no organomegaly EXTREMITIES: No edema of feet. SKIN: No rash, no masses palpable. NEUROLOGICAL: The patient is awake, alert, oriented x3, mood and affect normal. Results CBC & Chem 7: 12/11/18 07:28 12/11/18 07:28 Labs: Abnormal Lab Results - Last 24 Hours (Table) 12/10/18 12/10/18 12/11/18 Range/Units 15:05 15:05 07:28 WBC 10.9 H 18.1 H (3.8-10.6) k/uL RBC 5.82 H (3.80-5.40) m/uL Hgb 16.5 H (11.4-16.0) gm/dL Hct 52.3 H (34.0-46.0) % Neutrophils # 7.9 H 15.8 H (1.3-7.7) k/uL Chloride (98-107) mmol/L Carbon Dioxide 21 L (22-30) mmol/L Glucose 158 H (74-99) mg/dL AST 40 H (14-36) U/L Alkaline Phosphatase 154 H (38-126) U/L Total Protein 8.4 H (6.3-8.2) g/dL Urine Protein (Negative) 12/11/18 12/11/18 Range/Units 07:28 11:40 WBC (3.8-10.6) k/uL RBC (3.80-5.40) m/uL Hgb (11.4-16.0) gm/dL Hct (34.0-46.0) % Neutrophils # (1.3-7.7) k/uL Chloride 111 H (98-107) mmol/L Carbon Dioxide 18 L (22-30) mmol/L Glucose 133 H (74-99) mg/dL AST (14-36) U/L Alkaline Phosphatase (38-126) U/L Total Protein (6.3-8.2) g/dL Urine Protein Trace H (Negative) Assessment and Plan Assessment: 1-patient with leukocytosis in this patient presented to hospital with abdominal pain mostly epigastric area and this patient did have history of internal hernia with concern for possible small bowel strangulation and possible ischemia and no need for further today gram-negative pathogen to the likely bacterial responsible for this infection and elevated white count (1) Leukocytosis Current Visit: Yes Status: Acute Code(s): D72.829 - ELEVATED WHITE BLOOD CELL COUNT, UNSPECIFIED SNOMED Code(s): 786259756 Plan: 1- blood culture 2 if the patient spike any fevers 2-Zosyn 3.375 gm every 8 hour 3-abdominal culture if the patient did have any evidence of perforation We will follow on clinical condition and cultures to further adjust medication if needed Thank you for this consultation will follow this patient with you Time with Patient: Greater than 30
[2018-12-12] MEDS: IPRATROPIUM-ALBUTEROL 3 ML NEB INHALATION SCH ×4 (00:18→18:52)
[2018-12-12] MEDS: HYDROmorphone 1 MG/ML 1 ML SYRINGE IVP PRN ×5 (01:56→22:33)
[2018-12-12] MEDS: METHOCARBAMOL 750 MG TAB PO SCH ×4 (01:57→22:34)
[2018-12-12] MEDS: VENLAFAXINE HCL ER 150 MG CAP PO SCH ×3 (01:57→20:36)
[2018-12-12] MEDS: HEPARIN SODIUM,PORCINE 5,000 UNIT/ML 1 ML VIAL SQ SCH ×4 (02:01→23:25)
[2018-12-12] MEDS: GABAPENTIN 300 MG CAP PO SCH ×4 (02:01→21:31)
[2018-12-12] MEDS: PIPERACILLIN-TAZOBACTAM 3.375 GM in SODIUM CHLORIDE 0.9% 100 ML IVPB SCH ×4 (02:03→23:24)
[2018-12-12] MEDS: SIMETHICONE 40 MG/0.6 ML DROPS 2,000 MG/30 ML BOTTLE PO SCH ×5 (02:03→23:25)
[2018-12-12 06:04] LABS: Basophils % (A) 0 %; Eosinophils % (A) 0 %; HCT 38.1 % (34.0-46.0); Lymphocytes # (A) 2.2 k/uL (1.0-4.8); Lymphocytes % (A) 16 %; MCH 28.1 pg (25.0-35.0); MCV 90.6 fL (80.0-100.0); Monocytes # (A) 0.8 k/uL (0-1.0); Monocytes % (A) 6 %; Neutrophils # (A) 10.4 k/uL (1.3-7.7); Neutrophils % (A) 76 %; Platelet Count 207 k/uL (150-450); RDW 14.6 % (11.5-15.5); WBC 13.6 k/uL (3.8-10.6)
[2018-12-12 06:07] LABS: HGB 11.8 gm/dL (11.4-16.0)
[2018-12-12 06:18] LABS: African American GFR (CKD) >90 (>60 ml/min/1.73 sqM); Anion Gap 3 mmol/L; Blood Urea Nitrogen 13 mg/dL (7-17); Calcium 8.3 mg/dL (8.4-10.2); Carbon Dioxide 24 mmol/L (22-30); Chloride 112 mmol/L (98-107); Glucose 105 mg/dL (74-99); Magnesium 1.8 mg/dL (1.6-2.3); Non-African American GFR(CKD) 84 (>60 ml/min/1.73 sqM); Phosphorus 3.4 mg/dL (2.5-4.5); Potassium 3.6 mmol/L (3.5-5.1); Sodium 139 mmol/L (137-145)
[2018-12-12] MEDS: SODIUM CHLORIDE 0.9% 1,000 ML IV SCH ×2 (06:40→20:37)
[2018-12-12] MEDS: SYMBICORT 160-4.5 MCG INHALER INHALATION SCH ×2 (07:14→19:06)
[2018-12-12] MEDS ORDERED: IPRATROPIUM 0.5 MG/2.5 ML NEBU INHALATION SCH (08:00)
[2018-12-12] MEDS ORDERED: 0.9% NACL WITH KCL 20 MEQ/L 1,000 ML IV SCH (08:00)
[2018-12-12] MEDS: ACETAMINOPHEN TAB 325 MG TAB PO PRN (09:39)
[2018-12-12] MEDS: PANTOPRAZOLE 40 MG/10 ML VIAL IVP SCH ×2 (09:40→20:36)
--- NOTE | 2018-12-12 11:07 | P.PN ---
Progress Note - Text Progress Note Date: 12/12/18 Postoperative day 1 status post explarotory laparotomy, epidural catheter placed for postoperative pain control, and patient gets continuous infusion of Dilaudid/bupivacaine at 8 mL per hour patient continued to have severe pain, and she was complaining of severe headache, there was concern about posterior puncture headache, I tried to aspirate through the epidural catheter , was not able to aspirate CSF from the catheter, and because patient had no pain relief from the epidural catheter and she is having continuous headache, I discontinue the epidural catheter , the tip was intact, and Band-Aid applied, patient had no motor or sensory deficit, she was complaining of abdominal pain, (surgical site ), patient will be started on IV RN ACUTE DIALYSIS as per surgical team
--- NOTE | 2018-12-12 11:37 | P.PN ---
Progress Note - Text Progress Note Date: 12/12/18 The patient is status post exploratory laparotomy for small bowel obstruction related to internal hernia after gastric bypass. The patient is complaining of significant headache today. She states the headache pain is worse than her abdominal pain. On exam her vital signs are stable. Her abdomen soft. Incision is covered with pervena wound system. Possible spinal headache. Patient will be evaluated by anesthesia for her epidural placement. She will remain on sips of clears.
[2018-12-12] MEDS: MORPHINE SULFATE 4 MG/ML SYRINGE IVP PRN ×3 (13:27→21:30)
--- NOTE | 2018-12-12 14:06 | P.PN ---
Subjective Progress Note Date: 12/12/18 Principal diagnosis: Partial small bowel obstruction Leukocytosis rule out sepsis 58-year-old female with a known history of bariatric surgery 3 years ago, recent bowel obstruction in July 2018 status post surgery by Dr. Rodriguez, COPD, ongoing nicotine addiction, history of CVA/TIA, type or myalgia, GERD, hypertension, diabetes type 2 resolved after bariatric surgery, Hernandez's esophagus, abdominal incisional hernias and other multiple medical problems came to ER with complaints of nausea vomiting for the past 2 days. Patient is admitted for small bowel obstruction for surgical evaluation 12/12/2018 Patient is seen and evaluated with family members at bedside; continues to complain of severe uncontrolled abdominal pain; patient and family report that Dilaudid is making pain worse; patient agrees to use IV morphine for pain control Vital signs with temperature of 98.4, pulse 113, respiration 18 and blood pressure 164/100 and SpO2 of 96% on room air Lab review shows a white blood count of 18.1 which has markedly escalated from 10.9 yesterday with neutrophil count of 15.8 We will start patient on IV Zosyn and monitor pro-calcitonin and CRP levels; blood and urine cultures are ordered; we will consult ID for further recommendations Gen. surgery is following and patient is for possibly exploratory laparotomy this afternoon 12/12/2018 Postoperative day# 1 status post explarotory laparotomy for acute small bowel obstruction with near strangulation due to adhesions; patient underwent adhenolysis; epidural catheter placed for postoperative pain control, and patient gets continuous infusion of Dilaudid/bupivacaine but patient started complaining of severe headache, there was concern about posterior puncture headache, pidural catheter was removed surgery is following and agreeing with epidural catheter removal for possible spinal headache; patient has been started on sips of clear liquids Sepsis/ischemic bowel; patient remains on IV Zosyn and ID to see patient Objective - Vital Signs Vital signs: Vital Signs Temp 98 F 12/12/18 03:00 Pulse 96 12/12/18 07:27 Resp 19 12/12/18 07:00 BP 111/69 12/12/18 07:00 Pulse Ox 100 12/12/18 07:00 Intake & Output 12/11/18 12/12/18 12/12/18 18:59 06:59 18:59 Intake Total 1750 260 440 Output Total 770 350 Balance 980 -90 440 Weight 56.5 kg Intake: IV 1750 260 Oral 0 440 Output: Urine 750 350 Uretheral (Ma) 200 Estimated Blood Loss 20 Other: Voiding Method Indwelling Catheter - Exam Patient is lying in the bed awake alert and oriented. He appears to be in mild distress due to pain. Lethargic and drowsy. HEENT: Normocephalic. Neck is supple. Pupils reactive. Nostrils clear. Oral cavity is moist. Ears reveal no drainage. Neck reveals no JVD, carotid bruits, or thyromegaly. CHEST EXAMINATION: Trachea is central. Symmetrical expansion. Bibasilar initiating treatment. Lung garcia clear to auscultation and percussion. CARDIAC: Normal S1, S2 with no gallops. No murmurs ABDOMEN: Soft. Bowel sounds sluggish. No organomegaly. No abdominal bruits. Extremities: reveal no edema. No clubbing or cyanosis - Labs CBC & Chem 7: 12/12/18 05:42 12/12/18 05:42 Labs: Abnormal Lab Results - Last 24 Hours (Table) 12/11/18 12/11/18 12/12/18 Range/Units 10:58 11:40 05:42 WBC 13.6 H (3.8-10.6) k/uL Neutrophils # 10.4 H (1.3-7.7) k/uL Chloride (98-107) mmol/L Glucose (74-99) mg/dL Calcium (8.4-10.2) mg/dL Procalcitonin 0.14 H (0.02-0.09) ng/mL Urine Protein Trace H (Negative) 12/12/18 Range/Units 05:42 WBC (3.8-10.6) k/uL Neutrophils # (1.3-7.7) k/uL Chloride 112 H (98-107) mmol/L Glucose 105 H (74-99) mg/dL Calcium 8.3 L (8.4-10.2) mg/dL Procalcitonin (0.02-0.09) ng/mL Urine Protein (Negative) Assessment and Plan Assessment: Intractable abdominal pain secondary to partial small bowel obstruction. Recent history of nausea vomiting and diarrhea History of small bowel obstruction status post surgery in July 2018 Previous history of gastric bypass surgery about 3 years ago Fibromyalgia GERD Hernandez's esophagus status post surgically removed Chronic back pain and neck pain History of CVA/TIA with mild left-sided weakness Migraine headaches History of multiple falls Uncontrolled hypertension Diabetes type 2 resolved after bariatric surgery COPD stable. History of heart valve replacement several years ago Depression/anxiety Ongoing nicotine addiction DVT prophylaxis with heparin subcu Plan: Patient be continued on IV hydration and pain management and treated conservatively at this time. Patient is on multiple pain medications including Suboxone, Robaxin, elevated, Tylenol and NEURONTIN. WILL HOLD HOME MEDICATIONS AND CONTINUE WITH PAIN management with Dilaudid. Catapres patch will be applied for better blood pressure control. Breathing treatments as needed. Gen. surgery was consulted for further evaluation. Prognosis is guarded. Time with Patient: Greater than 30
[2018-12-12] MEDS: guaiFENesin 600 MG TABLET.ER PO SCH ×2 (15:12→20:35)
[2018-12-13] MEDS: IPRATROPIUM-ALBUTEROL 3 ML NEB INHALATION SCH ×4 (01:29→20:12)
[2018-12-13] MEDS: HYDROmorphone 1 MG/ML 1 ML SYRINGE IVP PRN ×2 (03:09→23:57)
[2018-12-13] MEDS: SODIUM CHLORIDE 0.9% 1,000 ML IV SCH ×3 (03:11→23:56)
[2018-12-13 06:05] LABS: Basophils % (A) 0 %; Eosinophils % (A) 0 %; HCT 36.6 % (34.0-46.0); HGB 11.8 gm/dL (11.4-16.0); Lymphocytes # (A) 1.9 k/uL (1.0-4.8); Lymphocytes % (A) 21 %; MCH 28.8 pg (25.0-35.0); MCHC 32.3 g/dL (31.0-37.0); MCV 89.1 fL (80.0-100.0); Mean Platelet Volume 7.3; Monocytes # (A) 0.5 k/uL (0-1.0); Monocytes % (A) 6 %; Neutrophils # (A) 6.5 k/uL (1.3-7.7); Neutrophils % (A) 71 %; Platelet Count 149 k/uL (150-450); RDW 14.3 % (11.5-15.5); WBC 9.1 k/uL (3.8-10.6)
[2018-12-13] MEDS: MORPHINE SULFATE 4 MG/ML SYRINGE IVP PRN ×4 (06:20→19:43)
[2018-12-13] MEDS: SIMETHICONE 40 MG/0.6 ML DROPS 2,000 MG/30 ML BOTTLE PO SCH ×3 (06:21→17:08)
[2018-12-13 06:25] LABS: African American GFR (CKD) >90 (>60 ml/min/1.73 sqM); Anion Gap 5 mmol/L; Blood Urea Nitrogen 6 mg/dL (7-17); Calcium 8.2 mg/dL (8.4-10.2); Carbon Dioxide 23 mmol/L (22-30); Chloride 108 mmol/L (98-107); Glucose 92 mg/dL (74-99); Non-African American GFR(CKD) >90 (>60 ml/min/1.73 sqM); Potassium 3.2 mmol/L (3.5-5.1); Sodium 136 mmol/L (137-145)
[2018-12-13] MEDS ORDERED: BISACODYL 5 MG TABLET.DR PO PRN (08:00)
[2018-12-13] MEDS: SYMBICORT 160-4.5 MCG INHALER INHALATION SCH ×2 (09:32→20:11)
[2018-12-13] MEDS: PIPERACILLIN-TAZOBACTAM 3.375 GM in SODIUM CHLORIDE 0.9% 100 ML IVPB SCH ×3 (09:50→23:56)
[2018-12-13] MEDS: guaiFENesin 600 MG TABLET.ER PO SCH ×2 (09:52→20:46)
[2018-12-13] MEDS: GABAPENTIN 300 MG CAP PO SCH ×3 (09:52→21:19)
[2018-12-13] MEDS: VENLAFAXINE HCL ER 150 MG CAP PO SCH ×2 (09:52→21:19)
[2018-12-13] MEDS: HEPARIN SODIUM,PORCINE 5,000 UNIT/ML 1 ML VIAL SQ SCH ×3 (09:52→23:58)
[2018-12-13] MEDS: METHOCARBAMOL 750 MG TAB PO SCH ×3 (09:52→21:19)
[2018-12-13] MEDS: PANTOPRAZOLE 40 MG/10 ML VIAL IVP SCH ×2 (09:52→20:47)
[2018-12-13] MEDS ORDERED: Potassium Replacement Protocol 1 EACH MISC MISCELLANE PRN (10:06)
--- NOTE | 2018-12-13 10:12 | P.PN ---
Progress Note - Text Progress Note Date: 12/13/18 The patient feels slightly better. Her epidural catheter was removed yesterday. Her headache improved. She is tolerating clear liquids and is asking for more to eat. On exam her vital signs are stable. Abdomen soft. Status post exploratory laparotomy. Lysis of adhesions for all obstruction related to internal hernia. Patient will have her diet advanced to full liquid diet.
[2018-12-13] MEDS: POTASSIUM CHLORIDE ER 20 MEQ TAB.ER PO SCH ×2 (11:41→13:48)
[2018-12-13 13:28] VITALS: BMI 19.1
[2018-12-13] MEDS: ONDANSETRON 4 MG/2 ML VIAL IVP PRN (13:55)
--- NOTE | 2018-12-13 17:21 | P.PN ---
Subjective Progress Note Date: 12/13/18 Principal diagnosis: Partial small bowel obstruction Leukocytosis rule out sepsis 58-year-old female with a known history of bariatric surgery 3 years ago, recent bowel obstruction in July 2018 status post surgery by Dr. Rodriguez, COPD, ongoing nicotine addiction, history of CVA/TIA, type or myalgia, GERD, hypertension, diabetes type 2 resolved after bariatric surgery, Hernandez's esophagus, abdominal incisional hernias and other multiple medical problems came to ER with complaints of nausea vomiting for the past 2 days. Patient is admitted for small bowel obstruction for surgical evaluation 12/12/2018 Patient is seen and evaluated with family members at bedside; continues to complain of severe uncontrolled abdominal pain; patient and family report that Dilaudid is making pain worse; patient agrees to use IV morphine for pain control Vital signs with temperature of 98.4, pulse 113, respiration 18 and blood pressure 164/100 and SpO2 of 96% on room air Lab review shows a white blood count of 18.1 which has markedly escalated from 10.9 yesterday with neutrophil count of 15.8 We will start patient on IV Zosyn and monitor pro-calcitonin and CRP levels; blood and urine cultures are ordered; we will consult ID for further recommendations Gen. surgery is following and patient is for possibly exploratory laparotomy this afternoon 12/12/2018 Postoperative day# 1 status post explarotory laparotomy for acute small bowel obstruction with near strangulation due to adhesions; patient underwent adhenolysis; epidural catheter placed for postoperative pain control, and patient gets continuous infusion of Dilaudid/bupivacaine but patient started complaining of severe headache, there was concern about posterior puncture headache, pidural catheter was removed surgery is following and agreeing with epidural catheter removal for possible spinal headache; patient has been started on sips of clear liquids Sepsis/ischemic bowel; patient remains on IV Zosyn and ID to see patient 12/13/2018 Patient is seen and evaluated in follow-up at bedside; she is status post exploratory laparotomy with lysis of adhesions resulting in obstruction of internal hernia; patient's epidural catheter was removed yesterday and she does report improvement in pain control; patient has been started on clear liquid diet and tolerating well Vital signs remained stable with a temperature of 98.3, pulse 96, respiration 20 and blood pressure 152/98 with SpO2 of 97% on room air Lab review shows a normal white blood count of 9.1 from 18.1 upon admission; sodium of 136, potassium 3.2; we will supplement with 40 mEq of IV potassium; ID has evaluated patient and recommended to continue with Zosyn 3.375 g IV every 8 hours for concern for small bowel strangulation and possible ischemia; await final recommendations from ID regarding final antibiotic and duration Objective - Vital Signs Vital signs: Vital Signs Temp 98.3 F 12/13/18 13:07 Pulse 96 12/13/18 13:07 Resp 20 12/13/18 13:07 BP 152/98 12/13/18 13:07 Pulse Ox 97 12/13/18 13:07 Intake & Output 12/12/18 12/13/18 12/13/18 18:59 06:59 18:59 Intake Total 820 340 Output Total 441 442 8645 Balance 520 -650 -1060 Weight 53.9 kg 53.9 kg Intake: Oral 820 340 Output: Urine 342 339 7616 Other: Voiding Method Toilet Toilet Toilet - Exam Patient is lying in the bed awake alert and oriented. He appears to be in mild distress due to pain. Lethargic and drowsy. HEENT: Normocephalic. Neck is supple. Pupils reactive. Nostrils clear. Oral cavity is moist. Ears reveal no drainage. Neck reveals no JVD, carotid bruits, or thyromegaly. CHEST EXAMINATION: Trachea is central. Symmetrical expansion. Bibasilar initiating treatment. Lung garcia clear to auscultation and percussion. CARDIAC: Normal S1, S2 with no gallops. No murmurs ABDOMEN: Soft. Bowel sounds sluggish. No organomegaly. No abdominal bruits. Extremities: reveal no edema. No clubbing or cyanosis - Labs CBC & Chem 7: 12/13/18 05:32 12/13/18 16:06 Labs: Abnormal Lab Results - Last 24 Hours (Table) 12/13/18 12/13/18 Range/Units 05:32 05:32 Plt Count 149 L (150-450) k/uL Sodium 136 L (137-145) mmol/L Potassium 3.2 L (3.5-5.1) mmol/L Chloride 108 H (98-107) mmol/L BUN 6 L (7-17) mg/dL Calcium 8.2 L (8.4-10.2) mg/dL Microbiology - Last 24 Hours (Table) 12/11/18 10:58 Blood Culture - Preliminary Blood No Growth after 48 hours Assessment and Plan Assessment: Intractable abdominal pain secondary to partial small bowel obstruction. Recent history of nausea vomiting and diarrhea History of small bowel obstruction status post surgery in July 2018 Previous history of gastric bypass surgery about 3 years ago Fibromyalgia GERD Hernandez's esophagus status post surgically removed Chronic back pain and neck pain History of CVA/TIA with mild left-sided weakness Migraine headaches History of multiple falls Uncontrolled hypertension Diabetes type 2 resolved after bariatric surgery COPD stable. History of heart valve replacement several years ago Depression/anxiety Ongoing nicotine addiction DVT prophylaxis with heparin subcu Plan: Patient be continued on IV hydration and pain management and treated conservatively at this time. Patient is on multiple pain medications including Suboxone, Robaxin, elevated, Tylenol and NEURONTIN. WILL HOLD HOME MEDICATIONS AND CONTINUE WITH PAIN management with Dilaudid. Catapres patch will be applied for better blood pressure control. Breathing treatments as needed. Gen. surgery was consulted for further evaluation. Prognosis is guarded. Time with Patient: Greater than 30
[2018-12-13] MEDS: ACETAMINOPHEN TAB 325 MG TAB PO PRN (21:19)
[2018-12-13] MEDS: hydrALAZINE HCL 20 MG/ML 1 ML VIAL IVP PRN (21:19)
--- NOTE | 2018-12-13 22:54 | PN ---
PROGRESS NOTE DATE OF SERVICE: 12/14/2018. REASON FOR FOLLOWUP: Leukocytosis, abdominal source. INTERVAL HISTORY: The patient is currently afebrile. The patient has been breathing comfortably. Denies having any chest pain. Did have some occasional cough with sputum. Abdominal discomfort but no nausea, no vomiting. No diarrhea. PHYSICAL EXAMINATION: Blood pressure 152/98 with a pulse of 96, temperature 98.3. He is 97% on room air. General description is a middle-aged female lying in bed in no distress. Respiratory system: Unlabored breathing. Clear to auscultation anteriorly. Heart S1, S2. Regular. ABDOMEN: Soft, no tenderness. Extremities: No edema of the feet. LABS: Hemoglobin is 11.1, normal is 9.1 with a BUN of 6, creatinine 0.62. Blood culture has been negative. DIAGNOSTIC IMPRESSION AND PLAN: Patient with leukocytosis secondary to abdominal source in this patient who did have strangulation due to adhesion that of the small bowel status post operative repair of the same with no evidence of any perforation. Blood culture negative. White count normalized. Currently on Zosyn, to continue switched to oral antibiotic on discharge. Continue supportive care. MMODL / IJN: [id number] / MTDD
[2018-12-14] MEDS: SIMETHICONE 40 MG/0.6 ML DROPS 2,000 MG/30 ML BOTTLE PO SCH ×6 (00:02→23:52)
[2018-12-14] MEDS: IPRATROPIUM-ALBUTEROL 3 ML NEB INHALATION SCH ×4 (00:35→20:26)
[2018-12-14] MEDS: MORPHINE SULFATE 4 MG/ML SYRINGE IVP PRN ×2 (01:45→20:48)
[2018-12-14] MEDS: HYDROmorphone 1 MG/ML 1 ML SYRINGE IVP PRN ×3 (05:27→23:51)
[2018-12-14] MEDS: hydrALAZINE HCL 20 MG/ML 1 ML VIAL IVP PRN (05:27)
[2018-12-14] MEDS: SODIUM CHLORIDE 0.9% 1,000 ML IV SCH ×2 (05:30→16:51)
[2018-12-14] MEDS: ONDANSETRON 4 MG/2 ML VIAL IVP PRN (08:09)
[2018-12-14] MEDS: HEPARIN SODIUM,PORCINE 5,000 UNIT/ML 1 ML VIAL SQ SCH ×3 (08:12→23:49)
[2018-12-14] MEDS: guaiFENesin 600 MG TABLET.ER PO SCH ×2 (08:12→20:47)
[2018-12-14] MEDS: PANTOPRAZOLE 40 MG/10 ML VIAL IVP SCH ×2 (08:12→20:47)
[2018-12-14] MEDS: VENLAFAXINE HCL ER 150 MG CAP PO SCH ×2 (08:13→20:47)
[2018-12-14] MEDS: PIPERACILLIN-TAZOBACTAM 3.375 GM in SODIUM CHLORIDE 0.9% 100 ML IVPB SCH ×3 (08:13→23:50)
[2018-12-14] MEDS: METHOCARBAMOL 750 MG TAB PO SCH ×3 (08:13→20:47)
[2018-12-14] MEDS: GABAPENTIN 300 MG CAP PO SCH ×3 (08:13→20:47)
[2018-12-14] MEDS: SYMBICORT 160-4.5 MCG INHALER INHALATION SCH ×2 (08:26→20:26)
[2018-12-14 11:37] LABS: African American GFR (CKD) >90 (>60 ml/min/1.73 sqM); Anion Gap 7 mmol/L; Blood Urea Nitrogen 5 mg/dL (7-17); Calcium 8.3 mg/dL (8.4-10.2); Carbon Dioxide 23 mmol/L (22-30); Chloride 107 mmol/L (98-107); Glucose 113 mg/dL (74-99); Non-African American GFR(CKD) >90 (>60 ml/min/1.73 sqM); Potassium 3.2 mmol/L (3.5-5.1); Sodium 137 mmol/L (137-145)
[2018-12-14] MEDS ORDERED: ACETAMINOPHEN IV (For NPO) 1,000 MG in EMPTY BAG 1 BAG IVPB ONE (11:45)
[2018-12-14 12:00] LABS: Basophils % (A) 0 %; Eosinophils % (A) 0 %; HCT 35.1 % (34.0-46.0); HGB 11.5 gm/dL (11.4-16.0); Lymphocytes # (A) 1.6 k/uL (1.0-4.8); Lymphocytes % (A) 24 %; MCH 29.3 pg (25.0-35.0); MCHC 32.8 g/dL (31.0-37.0); MCV 89.5 fL (80.0-100.0); Mean Platelet Volume 6.7; Monocytes # (A) 0.4 k/uL (0-1.0); Monocytes % (A) 6 %; Neutrophils # (A) 4.5 k/uL (1.3-7.7); Neutrophils % (A) 68 %; Platelet Count 169 k/uL (150-450); RBC 3.93 m/uL (3.80-5.40); RDW 14.2 % (11.5-15.5); WBC 6.6 k/uL (3.8-10.6)
--- NOTE | 2018-12-14 13:38 | P.PN ---
Subjective Progress Note Date: 12/14/18 CHIEF COMPLAINT: Abdominal pain HISTORY OF PRESENT ILLNESS: Patient is status post open exploratory laparotomy with lysis of adhesions performed on 12/11/2018. Patient examined this morning at the bedside. Patient had an epidural that was discontinued over the weekend. She can change to complain of a headache that does not get better or worse with certain positions. Patient reports her abdominal pain is tolerable. She is tolerating full liquid diet. Passing flatus. Denies bowel movements. PHYSICAL EXAM: VITAL SIGNS: Reviewed. GENERAL: Well-developed in no acute distress. HEENT: No sclera icterus. Extraocular movements grossly intact. Moist buccal mucosa. Head is atraumatic, normocephalic. ABDOMEN: Soft. Mild distention. PREVENA intact. Abdominal binder noted. NEUROLOGIC: Alert and oriented. Cranial nerves II through XII grossly intact. ASSESSMENT: 1. Small bowel obstruction, status post exploratory laparotomy with lysis of adhesions PLAN: 1. Advance diet to heart healthy 2. Pain control 3. Management of patients headaches per primary medicine 4. Increase activity 5. Incentive spirometer 10 times an hour while awake Nurse practitioner note has been reviewed by physician. Signing provider agrees with the documented findings, assessment, and plan of care. Objective - Vital Signs Vital signs: Vital Signs Temp 98.5 F 12/14/18 05:00 Pulse 82 12/14/18 12:36 Resp 16 12/14/18 05:00 BP 142/91 12/14/18 05:00 Pulse Ox 96 12/14/18 05:00 Intake & Output 12/13/18 12/14/18 12/14/18 18:59 06:59 18:59 Intake Total 340 Output Total 1400 Balance -1060 Weight 53.9 kg Intake: Oral 340 Output: Urine 1400 Other: Voiding Method Toilet Toilet # Voids 1 1 - Labs CBC & Chem 7: 12/14/18 10:52 12/14/18 10:52 Labs: Abnormal Lab Results - Last 24 Hours (Table) 12/14/18 Range/Units 10:52 Potassium 3.2 L (3.5-5.1) mmol/L BUN 5 L (7-17) mg/dL Glucose 113 H (74-99) mg/dL Calcium 8.3 L (8.4-10.2) mg/dL Microbiology - Last 24 Hours (Table) 12/11/18 10:58 Blood Culture - Preliminary Blood No Growth after 72 hours
--- NOTE | 2018-12-14 22:31 | PN ---
PROGRESS NOTE DATE OF SERVICE: 12/14/2018 REASON FOR FOLLOWUP: Leukocytosis, abdominal source. INTERVAL HISTORY: The patient is currently afebrile. The patient is breathing comfortably. Was complaining of some headache. Denies having any chest pain, shortness of breath or cough. Abdominal pain is currently controlled. No nausea, vomiting or any diarrhea. PHYSICAL EXAMINATION: Blood pressure is 143/91 with a pulse of 99, temperature 98.6. She is 95% on room air. General description is a middle-aged female lying in bed in no distress. RESPIRATORY SYSTEM: Unlabored breathing. Clear to auscultation anteriorly. HEART: S1, S2. Regular rate and rhythm. ABDOMEN: Soft. No tenderness. EXTREMITIES: No edema of the feet. LABS: Hemoglobin is 11.5, white count 6.6. DIAGNOSTIC IMPRESSION AND PLAN: Patient with leukocytosis, abdominal source, in this patient who did have a recent strangulated abdominal hernia, status post repair. The patient's white count has normalized. Currently on Zosyn; to continue. Transition to oral antibiotics once her Oral intake improves. Family at the bedside. Their questions were answered. MMODL / IJN: [id number] / MTDDrew
[2018-12-15] MEDS: IPRATROPIUM-ALBUTEROL 3 ML NEB INHALATION SCH ×4 (02:30→21:40)
[2018-12-15] MEDS: SODIUM CHLORIDE 0.9% 1,000 ML IV SCH ×3 (02:44→23:01)
[2018-12-15] MEDS: MORPHINE SULFATE 4 MG/ML SYRINGE IVP PRN ×4 (03:41→21:47)
[2018-12-15] MEDS: SIMETHICONE 40 MG/0.6 ML DROPS 2,000 MG/30 ML BOTTLE PO SCH ×4 (05:26→23:13)
[2018-12-15] MEDS: ONDANSETRON 4 MG/2 ML VIAL IVP PRN (06:01)
[2018-12-15] MEDS: SYMBICORT 160-4.5 MCG INHALER INHALATION SCH ×2 (08:29→21:40)
[2018-12-15] MEDS: PANTOPRAZOLE 40 MG/10 ML VIAL IVP SCH ×2 (08:41→21:47)
[2018-12-15] MEDS: GABAPENTIN 300 MG CAP PO SCH ×3 (08:43→21:46)
[2018-12-15] MEDS: HEPARIN SODIUM,PORCINE 5,000 UNIT/ML 1 ML VIAL SQ SCH ×3 (08:43→23:11)
[2018-12-15] MEDS: guaiFENesin 600 MG TABLET.ER PO SCH ×2 (08:44→21:47)
[2018-12-15] MEDS: PIPERACILLIN-TAZOBACTAM 3.375 GM in SODIUM CHLORIDE 0.9% 100 ML IVPB SCH ×3 (08:48→23:12)
[2018-12-15] MEDS: VENLAFAXINE HCL ER 150 MG CAP PO SCH ×2 (08:49→21:47)
[2018-12-15] MEDS: METHOCARBAMOL 750 MG TAB PO SCH ×3 (08:49→21:47)
[2018-12-15] MEDS ORDERED: BISACODYL 10 MG SUPP RECTAL STA (09:09)
[2018-12-15 10:25] LABS: African American GFR (CKD) >90 (>60 ml/min/1.73 sqM); Anion Gap 7 mmol/L; Blood Urea Nitrogen 4 mg/dL (7-17); Calcium 8.3 mg/dL (8.4-10.2); Carbon Dioxide 26 mmol/L (22-30); Chloride 105 mmol/L (98-107); Glucose 110 mg/dL (74-99); Magnesium 1.7 mg/dL (1.6-2.3); Non-African American GFR(CKD) >90 (>60 ml/min/1.73 sqM); Potassium 2.9 mmol/L (3.5-5.1); Sodium 138 mmol/L (137-145)
[2018-12-15 10:37] LABS: Basophils % (A) 0 %; Eosinophils % (A) 0 %; HCT 37.5 % (34.0-46.0); HGB 12.2 gm/dL (11.4-16.0); Lymphocytes # (A) 1.4 k/uL (1.0-4.8); Lymphocytes % (A) 20 %; MCHC 32.5 g/dL (31.0-37.0); MCV 89.2 fL (80.0-100.0); Mean Platelet Volume 6.8; Monocytes # (A) 0.4 k/uL (0-1.0); Monocytes % (A) 5 %; Neutrophils # (A) 5.1 k/uL (1.3-7.7); Neutrophils % (A) 72 %; Platelet Count 210 k/uL (150-450); RDW 14.2 % (11.5-15.5)
[2018-12-15] MEDS ORDERED: POTASSIUM CHLORIDE 60 MEQ in WATER FOR INJECTION 1 100ML.BAG IVPB STA (10:40)
--- NOTE | 2018-12-15 10:43 | P.PN ---
Subjective Progress Note Date: 12/14/18 Principal diagnosis: Small bowel obstruction status post explorative laparotomy and lysis of adhesions 58-year-old female with a known history of bariatric surgery 3 years ago, recent bowel obstruction in July 2018 status post surgery by Dr. Rodriguez, COPD, ongoing nicotine addiction, history of CVA/TIA, type or myalgia, GERD, hypertension, diabetes type 2 resolved after bariatric surgery, Hernandez's esophagus, abdominal incisional hernias and other multiple medical problems came to ER with complaints of nausea vomiting for the past 2 days. Patient is admitted for small bowel obstruction for surgical evaluation 12/12/2018 Patient is seen and evaluated with family members at bedside; continues to complain of severe uncontrolled abdominal pain; patient and family report that Dilaudid is making pain worse; patient agrees to use IV morphine for pain control Vital signs with temperature of 98.4, pulse 113, respiration 18 and blood pressure 164/100 and SpO2 of 96% on room air Lab review shows a white blood count of 18.1 which has markedly escalated from 10.9 yesterday with neutrophil count of 15.8 We will start patient on IV Zosyn and monitor pro-calcitonin and CRP levels; blood and urine cultures are ordered; we will consult ID for further recommendations Gen. surgery is following and patient is for possibly exploratory laparotomy thi s afternoon 12/12/2018 Postoperative day# 1 status post explarotory laparotomy for acute small bowel obstruction with near strangulation due to adhesions; patient underwent adhenolysis; epidural catheter placed for postoperative pain control, and patient gets continuous infusion of Dilaudid/bupivacaine but patient started complaining of severe headache, there was concern about posterior puncture headache, pidural catheter was removed surgery is following and agreeing with epidural catheter removal for possible spinal headache; patient has been started on sips of clear liquids Sepsis/ischemic bowel; patient remains on IV Zosyn and ID to see patient 12/13/2018 Patient is seen and evaluated in follow-up at bedside; she is status post explor atory laparotomy with lysis of adhesions resulting in obstruction of internal hernia; patient's epidural catheter was removed yesterday and she does report improvement in pain control; patient has been started on clear liquid diet and tolerating well Vital signs remained stable with a temperature of 98.3, pulse 96, respiration 20 and blood pressure 152/98 with SpO2 of 97% on room air Lab review shows a normal white blood count of 9.1 from 18.1 upon admission; sodium of 136, potassium 3.2; we will supplement with 40 mEq of IV potassium; ID has evaluated patient and recommended to continue with Zosyn 3.375 g IV every 8 hours for concern for small bowel strangulation and possible ischemia; await final recommendations from ID regarding final antibiotic and duration 12/14/2018 Patient says that her abdominal pain is better. Able to pass flatus. Otherwise patient is complaining of headache. Epidural is off since yesterday. Currently patient is tolerating clear liquids. No complaints of fever or chills. Laboratory data showed potassium level III.1 which is being replaced as per protocol. No chest pain or shortness of breath. General surgery is following. Current medications reviewed. Objective - Vital Signs Vital signs: Vital Signs Temp 98.6 F 12/14/18 14:12 Pulse 78 12/14/18 20:37 Resp 18 12/14/18 14:12 BP 143/91 12/14/18 14:12 Pulse Ox 95 12/14/18 14:12 Intake & Output 12/14/18 12/14/18 12/15/18 06:59 18:59 06:59 Intake Total 540 Balance 540 Intake: Oral 540 Other: Voiding Method Toilet Toilet # Voids 1 2 - Exam Patient is lying in the bed awake alert and oriented. He appears to be in mild distress due to pain. Lethargic and drowsy. HEENT: Normocephalic. Neck is supple. Pupils reactive. Nostrils clear. Oral cavity is moist. Ears reveal no drainage. Neck reveals no JVD, carotid bruits, or thyromegaly. CHEST EXAMINATION: Trachea is central. Symmetrical expansion. Bibasilar initiating treatment. Lung garcia clear to auscultation and percussion. CARDIAC: Normal S1, S2 with no gallops. No murmurs ABDOMEN: Soft. Bowel sounds sluggish. No organomegaly. No abdominal bruits. Extremities: reveal no edema. No clubbing or cyanosis - Labs CBC & Chem 7: 12/15/18 09:43 12/15/18 09:43 Labs: Abnormal Lab Results - Last 24 Hours (Table) 12/14/18 Range/Units 10:52 Potassium 3.2 L (3.5-5.1) mmol/L BUN 5 L (7-17) mg/dL Glucose 113 H (74-99) mg/dL Calcium 8.3 L (8.4-10.2) mg/dL Microbiology - Last 24 Hours (Table) 12/11/18 10:58 Blood Culture - Preliminary Blood No Growth after 72 hours Assessment and Plan Assessment: Intractable abdominal pain secondary to small bowel obstruction. Status post expiratory laparotomy and lysis of adhesions on 12/11/2018 Recent history of nausea vomiting and diarrhea History of small bowel obstruction status post surgery in July 2018 Previous history of gastric bypass surgery about 3 years ago Fibromyalgia GERD Hernandez's esophagus status post surgically removed Chronic back pain and neck pain History of CVA/TIA with mild left-sided weakness Migraine headaches History of multiple falls Uncontrolled hypertension Diabetes type 2 resolved after bariatric surgery COPD stable. History of heart valve replacement several years ago Depression/anxiety Ongoing nicotine addiction DVT prophylaxis with heparin subcu Plan: Patient be continued on IV hydration and pain management. pt is s/p surgery. . Patient is on multiple pain medications including Suboxone, Robaxin, elevated, Tylenol and NEURONTIN. WILL HOLD HOME MEDICATIONS AND CONTINUE WITH PAIN man agement with Dilaudid. Catapres patch for better blood pressure control. Breathing treatments as ne eded. Gen. surgery is following. Prognosis is guarded. Time with Patient: Greater than 30
[2018-12-15] MEDS: METOCLOPRAMIDE 5 MG/ML 2 ML VIAL IVP SCH ×3 (10:56→23:11)
[2018-12-15] MEDS: POTASSIUM CHLORIDE 10 MEQ in WATER FOR INJECTION 1 100ML.BAG IVPB SCH ×6 (11:16→17:49)
--- NOTE | 2018-12-15 13:00 | PN ---
PROGRESS NOTE DATE OF SERVICE: 12/15/2018 REASON FOR FOLLOWUP: Leukocytosis, abdominal source. INTERVAL HISTORY: The patient is currently afebrile. Patient is breathing comfortably. Has been complaining of gas, some abdominal pain associated with it but no nausea, no vomiting. No chest pain, shortness of breath or cough. PHYSICAL EXAMINATION: Blood pressure 156/90 with a pulse of 90, temperature 98.3, she is 96% on room air. General description is a middle-aged female, lying in bed in no distress. RESPIRATORY SYSTEM: Unlabored breathing, clear to auscultation anteriorly. HEART: S1, S2. Regular rate and rhythm. ABDOMEN; Distended, no guarding or rigidity. LABS: Hemoglobin 12.1, white count 7.3, BUN of 4, creatinine 0.62. Blood culture has been negative. DIAGNOSTIC IMPRESSION AND PLAN: Patient with leukocytosis, abdominal source. This patient did have hear stimulation but not ischemia or perforation. Currently on Zosyn. Will wait for the resumption of all activity before transition to oral antibiotics. Continue supportive care. MMODL / IJN: [id number] /
[2018-12-15] MEDS: IOPAMIDOL CONTRAST (ORAL USE) VIAL PO PRN ×2 (15:11→16:15)
--- NOTE | 2018-12-15 15:39 | P.PN ---
Subjective Progress Note Date: 12/15/18 CHIEF COMPLAINT: Abdominal pain HISTORY OF PRESENT ILLNESS: Patient is status post open exploratory laparotomy with lysis of adhesions performed on 12/11/2018. POD #4. Patients diet was advanced yesterday to a regular diet. She states she feels more bloated this morning. Passing small amounts of flatus. Denies BM. Reports feeling nauseous. PHYSICAL EXAM: VITAL SIGNS: Reviewed. GENERAL: Well-developed in no acute distress. HEENT: No sclera icterus. Extraocular movements grossly intact. Moist buccal mucosa. Head is atraumatic, normocephalic. ABDOMEN: Soft. Mild distention. PREVENA intact. Abdominal binder noted. NEUROLOGIC: Alert and oriented. Cranial nerves II through XII grossly intact. ASSESSMENT: 1. Small bowel obstruction, status post exploratory laparotomy with lysis of adhesions 2. Suspected Ileus 3. Hypokalemia 4. Hypomagnesemia PLAN: 1. Downgrade diet to full liquid 2. Pain control 3. Increase activity 4. Incentive spirometer 10 times an hour while awake 5. Dulcolax suppository 1. Begin Reglan 10 mg IV every 6 hours. 6. Replace potassium per protocol to maintain potassium level of 4.0. 7. Replace magnesium per protocol to maintain magnesium level of 2.0. Nurse practitioner note has been reviewed by physician. Signing provider agrees with the documented findings, assessment, and plan of care. Objective - Vital Signs Vital signs: Vital Signs Temp 98.3 F 12/15/18 04:55 Pulse 84 12/15/18 13:17 Resp 16 12/15/18 08:00 BP 156/98 12/15/18 04:55 Pulse Ox 94 L 12/15/18 08:30 Intake & Output 12/14/18 12/15/18 12/15/18 18:59 06:59 18:59 Intake Total 540 Balance 540 Weight 53.9 kg Intake: Oral 540 Other: Voiding Method Toilet # Voids 2 1 3 - Labs CBC & Chem 7: 12/15/18 09:43 12/15/18 09:43 Labs: Abnormal Lab Results - Last 24 Hours (Table) 12/15/18 Range/Units 09:43 Potassium 2.9 L (3.5-5.1) mmol/L BUN 4 L (7-17) mg/dL Glucose 110 H (74-99) mg/dL Calcium 8.3 L (8.4-10.2) mg/dL Microbiology - Last 24 Hours (Table) 12/11/18 10:58 Blood Culture - Preliminary Blood No Growth after 96 hours
[2018-12-15] MEDS: HYDROmorphone 1 MG/ML 1 ML SYRINGE IM PRN (16:41)
--- NOTE | 2018-12-15 17:26 | CT ---
EXAMINATION TYPE: CT abdomen pelvis wo con DATE OF EXAM: 12/15/2018 COMPARISON: 11/30/2018 HISTORY: abdominal pain and distention CT DLP: 466 mGycm Automated exposure control for dose reduction was used. TECHNIQUE: Helical acquisition of images was performed from the lung bases through the pelvis. There is oral contrast. FINDINGS: There are bilateral pleural effusions. There is bilateral basilar pulmonary infiltrate and atelectasi s. Heart is enlarged. There is no pericardial effusion. There is abdominal moderate ascites. Intrahepatic bile ducts are not dilated. Common bile duct measur es 12 mm. There is no adrenal mass. Kidneys show no hydronephrosis. There is a small pneumoperitoneum. There ar e multiple dilated gas and fluid-filled loops of large bowel. There are clips from cholecystectomy. S pleen is intact. Stomach appears intact. There is no evidence of a pancreatic mass. Small bowel is di lated up to 3.5 cm. Uterus is anteverted. There is free air in the anterior abdomen. IMPRESSION: THERE IS PNEUMOPERITONEUM. There is moderate abdominal ascites. There is dilated fluid-filled large b owel that is probably related to generalized large bowel ileus. Mildly dilated small bowel consistent with ileus. Free air and ascites are significant change compared to last exam. There is bilateral lower lobe pulmonary infiltrates and atelectasis that is new compared to old exam. Small pleural effusions new compared to old exam. Multiple attempts were made to contact the floor with the preliminary results and clinical findings and this was unsuccessful.
[2018-12-15] MEDS: MAGNESIUM SULFATE-D5W PMX 1 GM in DEXTROSE/WATER 1 100ML.BAG IVPB SCH ×2 (19:25→20:35)
[2018-12-15] MEDS ORDERED: diphenhydrAMINE 25 MG CAP PO STA (22:32)
[2018-12-15] MEDS: ACETAMINOPHEN TAB 325 MG TAB PO PRN (23:11)
[2018-12-16] MEDS: HYDROmorphone 1 MG/ML 1 ML SYRINGE IVP PRN ×4 (00:49→19:36)
[2018-12-16] MEDS: IPRATROPIUM-ALBUTEROL 3 ML NEB INHALATION SCH ×4 (03:44→18:56)
[2018-12-16] MEDS: SIMETHICONE 40 MG/0.6 ML DROPS 2,000 MG/30 ML BOTTLE PO SCH ×4 (05:20→23:32)
[2018-12-16] MEDS: METOCLOPRAMIDE 5 MG/ML 2 ML VIAL IVP SCH ×4 (05:38→23:32)
[2018-12-16] MEDS: SYMBICORT 160-4.5 MCG INHALER INHALATION SCH ×2 (07:44→18:56)
[2018-12-16] MEDS: PIPERACILLIN-TAZOBACTAM 3.375 GM in SODIUM CHLORIDE 0.9% 100 ML IVPB SCH ×3 (08:17→23:32)
[2018-12-16] MEDS: HEPARIN SODIUM,PORCINE 5,000 UNIT/ML 1 ML VIAL SQ SCH ×3 (08:18→23:31)
[2018-12-16] MEDS: VENLAFAXINE HCL ER 150 MG CAP PO SCH ×2 (08:18→21:23)
[2018-12-16] MEDS: PANTOPRAZOLE 40 MG/10 ML VIAL IVP SCH ×2 (08:18→21:23)
[2018-12-16] MEDS: GABAPENTIN 300 MG CAP PO SCH ×3 (08:18→21:23)
[2018-12-16] MEDS: METHOCARBAMOL 750 MG TAB PO SCH ×3 (08:18→21:23)
[2018-12-16] MEDS: guaiFENesin 600 MG TABLET.ER PO SCH ×2 (08:18→21:23)
[2018-12-16 10:07] LABS: African American GFR (CKD) >90 (>60 ml/min/1.73 sqM); Anion Gap 8 mmol/L; Blood Urea Nitrogen 4 mg/dL (7-17); Calcium 8.7 mg/dL (8.4-10.2); Carbon Dioxide 26 mmol/L (22-30); Chloride 104 mmol/L (98-107); Glucose 144 mg/dL (74-99); Non-African American GFR(CKD) >90 (>60 ml/min/1.73 sqM); Potassium 3.4 mmol/L (3.5-5.1); Sodium 138 mmol/L (137-145)
[2018-12-16] MEDS ORDERED: BISACODYL 10 MG SUPP RECTAL STA (10:59)
[2018-12-16] MEDS: POTASSIUM CHLORIDE ER 20 MEQ TAB.ER PO SCH ×2 (11:11→11:57)
[2018-12-16] MEDS: SODIUM CHLORIDE 0.9% 1,000 ML IV SCH ×2 (11:11→21:26)
[2018-12-16] MEDS: MORPHINE SULFATE 4 MG/ML SYRINGE IVP PRN ×2 (11:14→21:25)
--- NOTE | 2018-12-16 12:45 | PN ---
PROGRESS NOTE DATE OF SERVICE: 12/16/2018 REASON FOR FOLLOWUP: Leukocytosis, abdominal source. INTERVAL HISTORY: The patient is currently afebrile. Patient has been breathing comfortably. Denies having any chest pain. No cough. No worsening abdominal pain, did have bowel movement. No nausea, no vomiting. PHYSICAL EXAMINATION: Blood pressure 175/97, pulse of 86, temperature 98.1. She is 95% on room air. General description is a middle-aged female lying in bed in no distress. RESPIRATORY SYSTEM: Unlabored breathing, clear to auscultation anteriorly. HEART: S1, S2. Regular rate and rhythm. ABDOMEN: Soft, no tenderness. LABS: No CBC was done today. CT of abdomen and pelvis yesterday shows pneumoperitoneum with moderate ascites and large bowel ileus. DIAGNOSTIC IMPRESSION AND PLAN: Patient with leukocytosis secondary to near stimulation of internal hernia, status post surgery and repair of the same with evidence of postoperative ileus being managed by Surgery. The patient's white count normal. Covered with Zosyn and continue with supportive care. MMODL / IJN: [id number] / MTDD
--- NOTE | 2018-12-16 14:24 | P.PN ---
Subjective Progress Note Date: 12/16/18 CHIEF COMPLAINT: Abdominal pain HISTORY OF PRESENT ILLNESS: Patient is status post open exploratory laparotomy with lysis of adhesions performed on 12/11/2018. POD #5. Patient examined at the bedside. She reports increased abdominal pain and gas pains. She reports increased bloating. She had a small bowel movement yesterday. She denies passing flatus this morning. She is having nausea but no emesis. Patient underwent CT abdomen and pelvis yesterday with oral contrast revealing pneumoperitoneum, moderate abdominal ascites, dilated fluid-filled large bowel that is probably related to generalized large bowel ileus. Mildly dilated small bowel consistent with ileus. PHYSICAL EXAM: VITAL SIGNS: Reviewed. GENERAL: Well-developed in no acute distress. HEENT: No sclera icterus. Extraocular movements grossly intact. Moist buccal mucosa. Head is atraumatic, normocephalic. ABDOMEN: Soft. Distended. PREVENA intact. Abdominal binder noted. NEUROLOGIC: Alert and oriented. Cranial nerves II through XII grossly intact. ASSESSMENT: 1. Small bowel obstruction, status post exploratory laparotomy with lysis of adhesions 2. Small and large bowel Ileus 3. Hypokalemia 4. Hypomagnesemia PLAN: 1. NPO 2. Pain control 3. Increase activity 4. Incentive spirometer 10 times an hour while awake 5. Continue IV Reglan 6. Daily dulcolax suppository 7. Replace potassium 8. Begin PPN due to NPO status Nurse practitioner note has been reviewed by physician. Signing provider agrees with the documented findings, assessment, and plan of care. Objective - Vital Signs Vital signs: Vital Signs Temp 98.1 F 12/16/18 05:32 Pulse 88 12/16/18 13:32 Resp 20 12/16/18 08:00 BP 175/97 12/16/18 05:32 Pulse Ox 95 12/16/18 07:45 Intake & Output 12/15/18 12/16/18 12/16/18 18:59 06:59 18:59 Weight 53.9 kg Other: Voiding Method Toilet Toilet # Voids 3 3 - Labs CBC & Chem 7: 12/15/18 09:43 12/16/18 09:00 Labs: Abnormal Lab Results - Last 24 Hours (Table) 12/16/18 Range/Units 09:00 Potassium 3.4 L (3.5-5.1) mmol/L BUN 4 L (7-17) mg/dL Glucose 144 H (74-99) mg/dL Microbiology - Last 24 Hours (Table) 12/11/18 10:58 Blood Culture - Preliminary Blood No Growth after 120 hours
--- NOTE | 2018-12-16 16:13 | P.PN ---
Subjective Progress Note Date: 12/16/18 Principal diagnosis: Small bowel obstruction status post explorative laparotomy and lysis of adhesions 58-year-old female with a known history of bariatric surgery 3 years ago, recent bowel obstruction in July 2018 status post surgery by Dr. Rodriguez, COPD, ongoing nicotine addiction, history of CVA/TIA, type or myalgia, GERD, hypertension, diabetes type 2 resolved after bariatric surgery, Hernandez's esophagus, abdominal incisional hernias and other multiple medical problems came to ER with complaints of nausea vomiting for the past 2 days. Patient is admitted for small bowel obstruction for surgical evaluation 12/12/2018 Patient is seen and evaluated with family members at bedside; continues to complain of severe uncontrolled abdominal pain; patient and family report that Dilaudid is making pain worse; patient agrees to use IV morphine for pain control Vital signs with temperature of 98.4, pulse 113, respiration 18 and blood pressure 164/100 and SpO2 of 96% on room air Lab review shows a white blood count of 18.1 which has markedly escalated from 10.9 yesterday with neutrophil count of 15.8 We will start patient on IV Zosyn and monitor pro-calcitonin and CRP levels; blood and urine cultures are ordered; we will consult ID for further recommendations Gen. surgery is following and patient is for possibly exploratory laparotomy this afternoon 12/12/2018 Postoperative day# 1 status post explarotory laparotomy for acute small bowel obstruction with near strangulation due to adhesions; patient underwent a dhenolysis; epidural catheter placed for postoperative pain control, and patient gets continuous infusion of Dilaudid/bupivacaine but patient started complaining of severe headache, there was concern about posterior puncture headache, pidural catheter was removed surgery is following and agreeing with epidural catheter removal for possible spinal headache; patient has been started on sips of clear liquids Sepsis/ischemic bowel; patient remains on IV Zosyn and ID to see patient 12/13/2018 Patient is seen and evaluated in follow-up at bedside; she is status post exploratory laparotomy with lysis of adhesions resulting in obstruction of internal hernia; patient's epidural catheter was removed yesterday and she does report improvement in pain control; patient has been started on clear liquid diet and tolerating well Vital signs remained stable with a temperature of 98.3, pulse 96, respiration 20 and blood pressure 152/98 with SpO2 of 97% on room air Lab review shows a normal white blood count of 9.1 from 18.1 upon admission; sodium of 136, potassium 3.2; we will supplement with 40 mEq of IV potassium; ID has evaluated patient and recommended to continue with Zosyn 3.375 g IV every 8 hours for concern for small bowel strangulation and possible ischemia; await final recommendations from ID regarding final antibiotic and duration 12/14/2018 Patient says that her abdominal pain is better. Able to pass flatus. Otherwise patient is complaining of headache. Epidural is off since yesterday. Currently patient is tolerating clear liquids. No complaints of fever or chills. Laboratory data showed potassium level III.1 which is being replaced as per protocol. No chest pain or shortness of breath. General surgery is following. Current medications reviewed. 12/16/2018 Patient is sitting up in bed in no acute distress. Patient states that she feels constipated and has been passing some gas and feels like she needs to have a bowel movement but is not coming out. States that she doesn't want a strain to have a bowel movement and would like something for this. Dulcolax suppository was ordered. Surgery is following closely status post laparotomy w ith lysis of adhesions, small bowel obstruction with near strangulation due to the adhesions. Patient is tolerating liquids but will be made nothing by mouth except for ice chips and popsicles per surgery recommendations and possible parenteral nutrition. Family was in discussing their concerns with surgery and was requesting a transfer to [facility] or [facility] for further care. Was made aware by case management at the transfer was not approved at this time due to possible prior authorization of insurance and this was not a transfer for higher level of care but rather a transfer request by family. Will continue to monitor closely. Objective - Vital Signs Vital signs: Vital Signs Temp 98.1 F 12/16/18 05:32 Pulse 80 12/16/18 07:59 Resp 20 12/16/18 08:00 BP 175/97 12/16/18 05:32 Pulse Ox 95 12/16/18 07:45 Intake & Output 12/15/18 12/16/18 12/16/18 18:59 06:59 18:59 Weight 53.9 kg Other: Voiding Method Toilet Toilet # Voids 3 3 - Exam Patient is lying in the bed awake alert and oriented. Patient appears to be in mild distress due to constipation and bloating. HEENT: Normocephalic. Neck is supple. Pupils reactive. Nostrils clear. Oral cavity is moist. Ears reveal no drainage. Neck reveals no JVD, carotid bruits, or thyromegaly. CHEST EXAMINATION: Trachea is central. Symmetrical expansion. Diminished breath sounds at the bases. Lung garcia clear to auscultation and percussion. CARDIAC: Normal S1, S2 with no gallops. No murmurs ABDOMEN: Soft. Bowel sounds sluggish. Mildly distended, tender upon palpation. No organomegaly. No abdominal bruits. Extremities: reveal no edema. No clubbing or cyanosis - Labs CBC & Chem 7: 12/15/18 09:43 12/16/18 09:00 Labs: Abnormal Lab Results - Last 24 Hours (Table) 12/16/18 Range/Units 09:00 Potassium 3.4 L (3.5-5.1) mmol/L BUN 4 L (7-17) mg/dL Glucose 144 H (74-99) mg/dL Microbiology - Last 24 Hours (Table) 12/11/18 10:58 Blood Culture - Preliminary Blood No Growth after 96 hours Assessment and Plan Assessment: Intractable abdominal pain secondary to small bowel obstruction. Status post expiratory laparotomy and lysis of adhesions on 12/11/2018 Recent history of nausea vomiting and diarrhea History of small bowel obstruction status post surgery in July 2018 Previous history of gastric bypass surgery about 3 years ago Fibromyalgia GERD Hernandez's esophagus status post surgically removed Chronic back pain and neck pain History of CVA/TIA with mild left-sided weakness Migraine headaches History of multiple falls Uncontrolled hypertension Diabetes type 2 resolved after bariatric surgery COPD stable. History of heart valve replacement several years ago Depression/anxiety Ongoing nicotine addiction DVT prophylaxis with heparin subq Recommendations and discussion: Recommend continue current medications, management, and symptomatic treatment. Surgery is following closely. Patient continues to have bloating and constipation and requesting something for this. Dulcolax suppository was ordered. CAT scan of the abdomen was done yesterday showing pneumoperitoneum wi th moderate abdominal ascites, dilated fluid-filled large bowel, mildly dilated small bowel consistent with ileus. Patient will be made nothing by mouth at this time except for ice chips and popsicles and will continue to monitor closely. Dietary was consulted for PPN due to nothing by mouth status. Patient will continue with IV antibiotics at this time. blood cultures thus far have been negative. Patient family was requesting a transfer and due to insurance issues the transfer was not approved at this time. Will continue to monitor closely. Will repeat a.m. labs. Guarded prognosis. Further recommendations to follow.
[2018-12-16] MEDS: FAT EMULSION 20% 250 ML IV SCH (17:49)
[2018-12-16] MEDS ORDERED: MVI, ADULT NO.4 WITH VIT K 10 ML, TRACE (CONC-1ML/DOSE) 1 ML in AMINO ACID 4.25%-D10W+L... IV ONE ×3 (18:00)
[2018-12-16] MEDS ORDERED: LABETALOL 200 MG TAB PO STA (18:32)
[2018-12-17] MEDS: IPRATROPIUM-ALBUTEROL 3 ML NEB INHALATION SCH ×4 (00:19→21:21)
[2018-12-17 00:30] LABS: Glucose,Whole Blood 102 mg/dL (75-99)
[2018-12-17] MEDS: ACETAMINOPHEN TAB 325 MG TAB PO PRN ×2 (02:23→07:47)
[2018-12-17] MEDS: HYDROmorphone 1 MG/ML 1 ML SYRINGE IM PRN ×5 (03:00→21:10)
[2018-12-17] MEDS: HYDROmorphone 1 MG/ML 1 ML SYRINGE IVP PRN (03:02)
[2018-12-17] MEDS: SODIUM CHLORIDE 0.9% 1,000 ML IV SCH ×2 (06:20→15:52)
[2018-12-17] MEDS: METOCLOPRAMIDE 5 MG/ML 2 ML VIAL IVP SCH ×4 (06:20→23:52)
[2018-12-17] MEDS: SIMETHICONE 40 MG/0.6 ML DROPS 2,000 MG/30 ML BOTTLE PO SCH ×4 (06:20→23:53)
[2018-12-17 06:36] LABS: Glucose,Whole Blood 103 mg/dL (75-99)
[2018-12-17] MEDS: guaiFENesin 600 MG TABLET.ER PO SCH ×2 (07:42→21:15)
[2018-12-17] MEDS: BISACODYL 10 MG SUPP RECTAL SCH (07:42)
[2018-12-17] MEDS: PANTOPRAZOLE 40 MG/10 ML VIAL IVP SCH ×2 (07:42→21:14)
[2018-12-17] MEDS: VENLAFAXINE HCL ER 150 MG CAP PO SCH ×2 (07:42→21:43)
[2018-12-17] MEDS: METHOCARBAMOL 750 MG TAB PO SCH ×3 (07:43→21:43)
[2018-12-17] MEDS: PIPERACILLIN-TAZOBACTAM 3.375 GM in SODIUM CHLORIDE 0.9% 100 ML IVPB SCH ×3 (07:43→23:52)
[2018-12-17] MEDS: HEPARIN SODIUM,PORCINE 5,000 UNIT/ML 1 ML VIAL SQ SCH ×3 (07:43→23:52)
[2018-12-17] MEDS: GABAPENTIN 300 MG CAP PO SCH ×3 (07:44→21:13)
[2018-12-17] MEDS: SYMBICORT 160-4.5 MCG INHALER INHALATION SCH ×2 (08:52→21:21)
[2018-12-17 09:19] LABS: Basophils % (A) 0 %; Eosinophils % (A) 0 %; HCT 39.2 % (34.0-46.0); HGB 12.6 gm/dL (11.4-16.0); Lymphocytes # (A) 1.6 k/uL (1.0-4.8); Lymphocytes % (A) 23 %; MCH 28.9 pg (25.0-35.0); MCHC 32.1 g/dL (31.0-37.0); Mean Platelet Volume 7.2; Monocytes # (A) 0.5 k/uL (0-1.0); Monocytes % (A) 7 %; Neutrophils # (A) 4.6 k/uL (1.3-7.7); Neutrophils % (A) 67 %; Platelet Count 250 k/uL (150-450); RBC 4.36 m/uL (3.80-5.40); RDW 14.4 % (11.5-15.5); WBC 6.8 k/uL (3.8-10.6)
[2018-12-17 09:26] LABS: African American GFR (CKD) >90 (>60 ml/min/1.73 sqM); Anion Gap 7 mmol/L; Blood Urea Nitrogen 8 mg/dL (7-17); Calcium 8.9 mg/dL (8.4-10.2); Carbon Dioxide 28 mmol/L (22-30); Chloride 104 mmol/L (98-107); Glucose 111 mg/dL (74-99); Magnesium 2.1 mg/dL (1.6-2.3); Non-African American GFR(CKD) >90 (>60 ml/min/1.73 sqM); Phosphorus 4.7 mg/dL (2.5-4.5); Potassium 4.3 mmol/L (3.5-5.1); Sodium 139 mmol/L (137-145); Triglycerides 123 mg/dL (<150)
[2018-12-17] MEDS ORDERED: 1: MVI, ADULT NO.4 WITH VIT K 10 ML, TRACE (CONC-1ML/DOSE) 1 ML in AMINO ACID 4.25%-D10W IV SCH ×3 (11:00)
[2018-12-17] MEDS: MAGNESIUM HYDROXIDE 2,400 MG/10 ML CUP PO SCH (11:22)
[2018-12-17 12:24] LABS: Glucose,Whole Blood 114 mg/dL (75-99)
[2018-12-17] MEDS: 1: MVI, ADULT NO.4 WITH VIT K 10 ML, TRACE (CONC-1ML/DOSE) 1 ML, PARENTERAL ELECTROLYTES IV SCH ×12 (12:47→12:50)
--- NOTE | 2018-12-17 14:20 | P.PN ---
Subjective Progress Note Date: 12/17/18 CHIEF COMPLAINT: Abdominal pain HISTORY OF PRESENT ILLNESS: Patient is status post open exploratory laparotomy with lysis of adhesions performed on 12/11/2018. POD #6. Patient examined at the bedside. She reports abdominal pain has significantly improved today. She also reports improvement in abdominal bloating. She reports passing flatus. Denies bowel movement. She remains nothing by mouth. PPN is infusing. PHYSICAL EXAM: VITAL SIGNS: Reviewed. GENERAL: Well-developed in no acute distress. HEENT: No sclera icterus. Extraocular movements grossly intact. Moist buccal mucosa. Head is atraumatic, normocephalic. ABDOMEN: Soft. Mildly distended. PREVENA intact. Abdominal binder noted. NEUROLOGIC: Alert and oriented. Cranial nerves II through XII grossly intact. ASSESSMENT: 1. Small bowel obstruction, status post exploratory laparotomy with lysis of adhesions 2. Small and large bowel Ileus 3. Hypokalemia 4. Hypomagnesemia PLAN: 1. NPO except for ice chips 2. Pain control 3. Increase activity 4. Incentive spirometer 10 times an hour while awake 5. Continue IV Reglan 6. Daily dulcolax suppository 7. Continue PPN 8. Add milk of magnesia daily 9. Possible initiation of PO intake tomorrow if patient continues to show improvement Nurse practitioner note has been reviewed by physician. Signing provider agrees with the documented findings, assessment, and plan of care. Objective - Vital Signs Vital signs: Vital Signs Temp 98.9 F 12/17/18 13:19 Pulse 91 12/17/18 13:19 Resp 18 12/17/18 13:19 BP 148/94 12/17/18 13:19 Pulse Ox 95 12/17/18 13:19 Intake & Output 12/16/18 12/17/18 12/17/18 18:59 06:59 18:59 Intake Total 284 Balance 284 Weight 53.9 kg Intake: Intake, IV Titration 284 Amount Fat Emulsion 20% 250 ml @ 84 20.833 mls/hr IV DAILY@ [facility] Rx#:[id number] Mvi, Adult No.4 with Vit 200 K 10 ml Trace (Conc-1Ml/ Dose) 1 ml In Amino Acid 4.25%-D10w+Lytes*E* 1,000 ml @ 50 mls/hr IV . [id number] ONE Rx#:[id number] Other: Voiding Method Toilet Toilet Toilet # Voids 2 3 3 # Bowel Movements 1 - Labs CBC & Chem 7: 12/17/18 08:42 12/17/18 08:42 Labs: Abnormal Lab Results - Last 24 Hours (Table) 12/17/18 12/17/18 12/17/18 Range/Units 00:28 06:32 08:42 Glucose 111 H (74-99) mg/dL POC Glucose (mg/dL) 102 H 103 H (75-99) mg/dL Phosphorus 4.7 H (2.5-4.5) mg/dL 12/17/18 Range/Units 12:20 Glucose (74-99) mg/dL POC Glucose (mg/dL) 114 H (75-99) mg/dL Phosphorus (2.5-4.5) mg/dL Microbiology - Last 24 Hours (Table) 12/11/18 10:58 Blood Culture - Final Blood No Growth after 144 hours
--- NOTE | 2018-12-17 14:32 | P.PN ---
Subjective Progress Note Date: 12/17/18 Principal diagnosis: Small bowel obstruction status post explorative laparotomy and lysis of adhesions 58-year-old female with a known history of bariatric surgery 3 years ago, recent bowel obstruction in July 2018 status post surgery by Dr. Rodriguez, COPD, ongoing nicotine addiction, history of CVA/TIA, type or myalgia, GERD, hypertension, diabetes type 2 resolved after bariatric surgery, Hernandez's esophagus, abdominal incisional hernias and other multiple medical problems came to ER with complaints of nausea vomiting for the past 2 days. Patient is admitted for small bowel obstruction for surgical evaluation 12/12/2018 Patient is seen and evaluated with family members at bedside; continues to complain of severe uncontrolled abdominal pain; patient and family report that Dilaudid is making pain worse; patient agrees to use IV morphine for pain control Vital signs with temperature of 98.4, pulse 113, respiration 18 and blood pressure 164/100 and SpO2 of 96% on room air Lab review shows a white blood count of 18.1 which has markedly escalated from 10.9 yesterday with neutrophil count of 15.8 We will start patient on IV Zosyn and monitor pro-calcitonin and CRP levels; blood and urine cultures are ordered; we will consult ID for further recommendations Gen. surgery is following and patient is for possibly exploratory laparotomy this afternoon 12/12/2018 Postoperative day# 1 status post explarotory laparotomy for acute small bowel obstruction with near strangulation due to adhesions; patient underwent a dhenolysis; epidural catheter placed for postoperative pain control, and patient gets continuous infusion of Dilaudid/bupivacaine but patient started complaining of severe headache, there was concern about posterior puncture headache, pidural catheter was removed surgery is following and agreeing with epidural catheter removal for possible spinal headache; patient has been started on sips of clear liquids Sepsis/ischemic bowel; patient remains on IV Zosyn and ID to see patient 12/13/2018 Patient is seen and evaluated in follow-up at bedside; she is status post exploratory laparotomy with lysis of adhesions resulting in obstruction of internal hernia; patient's epidural catheter was removed yesterday and she does report improvement in pain control; patient has been started on clear liquid diet and tolerating well Vital signs remained stable with a temperature of 98.3, pulse 96, respiration 20 and blood pressure 152/98 with SpO2 of 97% on room air Lab review shows a normal white blood count of 9.1 from 18.1 upon admission; sodium of 136, potassium 3.2; we will supplement with 40 mEq of IV potassium; ID has evaluated patient and recommended to continue with Zosyn 3.375 g IV every 8 hours for concern for small bowel strangulation and possible ischemia; await final recommendations from ID regarding final antibiotic and duration 12/14/2018 Patient says that her abdominal pain is better. Able to pass flatus. Otherwise patient is complaining of headache. Epidural is off since yesterday. Currently patient is tolerating clear liquids. No complaints of fever or chills. Laboratory data showed potassium level III.1 which is being replaced as per protocol. No chest pain or shortness of breath. General surgery is following. Current medications reviewed. 12/16/2018 Patient is sitting up in bed in no acute distress. Patient states that she feels constipated and has been passing some gas and feels like she needs to have a bowel movement but is not coming out. States that she doesn't want a strain to have a bowel movement and would like something for this. Dulcolax suppository was ordered. Surgery is following closely status post laparotomy w ith lysis of adhesions, small bowel obstruction with near strangulation due to the adhesions. Patient is tolerating liquids but will be made nothing by mouth except for ice chips and popsicles per surgery recommendations and possible parenteral nutrition. Family was in discussing their concerns with surgery and was requesting a transfer to [facility] or [facility] for further care. Was made aware by case management at the transfer was not approved at this time due to possible prior authorization of insurance and this was not a transfer for higher level of care but rather a transfer request by family. Will continue to monitor closely. 12/17/2018 Patient is lying in bed sleeping but easily arousable. Patient states that she feels tired today but overall better than yesterday. Patient states that she did have a few bowel movements yesterday after the suppository and has also been passing gas and the bloating has gone down tremendously. Abdominal binder still in place. No acute overnight issues. Patient is to continue with nothing by mouth except for ice chips and popsicles per surgery recommendations and is currently receiving PPN for nutrition. Patient may advance diet tomorrow if symptoms continue to improve per surgery. Patient denies any chest pain, shortness of breath, or palpitations at this time. Patient is afebrile. Patient denies any nausea or vomiting at this time. Guarded prognosis. Will continue to monitor closely. Objective - Vital Signs Vital signs: Vital Signs Temp 98.9 F 12/17/18 13:19 Pulse 91 12/17/18 13:19 Resp 18 12/17/18 13:19 BP 148/94 12/17/18 13:19 Pulse Ox 95 12/17/18 13:19 Intake & Output 12/16/18 12/17/18 12/17/18 18:59 06:59 18:59 Intake Total 284 Balance 284 Weight 53.9 kg Intake: Intake, IV Titration 284 Amount Fat Emulsion 20% 250 ml @ 84 20.833 mls/hr IV DAILY@ 1800 [facility] Rx#:[id number] Mvi, Adult No.4 with Vit 200 K 10 ml Trace (Conc-1Ml/ Dose) 1 ml In Amino Acid 4.25%-D10w+Lytes*E* 1,000 ml @ 50 mls/hr IV . [id number] ONE Rx#:[id number] Other: Voiding Method Toilet Toilet Toilet # Voids 2 3 3 # Bowel Movements 1 - Exam Patient is lying in the bed sleeping but easily arousable, alert and oriented. Patient appears to be in no acute distress. HEENT: Normocephalic. Neck is supple. Pupils reactive. Nostrils clear. Oral cavity is moist. Ears reveal no drainage. Neck reveals no JVD, carotid bruits, or thyromegaly. CHEST EXAMINATION: Trachea is central. Symmetrical expansion. Diminished breath sounds at the bases. Lung garcia clear to auscultation and percussion. CARDIAC: Normal S1, S2 with no gallops. No murmurs ABDOMEN: Soft. Bowel sounds hypoactive. non-distended, mild tenderness upon palpation. No organomegaly. No abdominal bruits. Extremities: reveal no edema. No clubbing or cyanosis - Labs CBC & Chem 7: 12/17/18 08:42 12/17/18 08:42 Labs: Abnormal Lab Results - Last 24 Hours (Table) 12/17/18 12/17/18 12/17/18 Range/Units 00:28 06:32 08:42 Glucose 111 H (74-99) mg/dL POC Glucose (mg/dL) 102 H 103 H (75-99) mg/dL Phosphorus 4.7 H (2.5-4.5) mg/dL 12/17/18 Range/Units 12:20 Glucose (74-99) mg/dL POC Glucose (mg/dL) 114 H (75-99) mg/dL Phosphorus (2.5-4.5) mg/dL Microbiology - Last 24 Hours (Table) 12/11/18 10:58 Blood Culture - Final Blood No Growth after 144 hours Assessment and Plan Assessment: Intractable abdominal pain secondary to small bowel obstruction. Status post expiratory laparotomy and lysis of adhesions on 12/11/2018 Recent history of nausea vomiting and diarrhea History of small bowel obstruction status post surgery in July 2018 Previous history of gastric bypass surgery about 3 years ago Fibromyalgia GERD Hernandez's esophagus status post surgically removed Chronic back pain and neck pain History of CVA/TIA with mild left-sided weakness Migraine headaches History of multiple falls Uncontrolled hypertension Diabetes type 2 resolved after bariatric surgery COPD stable. History of heart valve replacement several years ago Depression/anxiety Ongoing nicotine addiction DVT prophylaxis with heparin subq Recommendations and discussion: Recommend continue current medications, management, and symptomatic treatment. Surgery is following closely. Patient is currently nothing by mouth at this time except for ice chips and popsicles and will continue to monitor closely. Per surgery recommendations patient may advance diet tomorrow if symptoms continue to improve. Patient is currently receiving PPN for nutrition. Patient will continue with IV antibiotics at this time. Blood cultures thus far have been negative. Will continue to monitor closely. Will repeat a.m. labs. Guarded prognosis. Further recommendations to follow.
[2018-12-17] MEDS: FAT EMULSION 20% 250 ML IV SCH (17:11)
[2018-12-17 17:20] LABS: Glucose,Whole Blood 121 mg/dL (75-99)
--- NOTE | 2018-12-17 17:37 | PN ---
PROGRESS NOTE DATE OF SERVICE: 12/17/2018 REASON FOR FOLLOWUP: Leukocytosis, abdominal source. INTERVAL HISTORY: The patient is currently afebrile. The patient is breathing comfortably. The patient denies having any chest pain or shortness of breath or cough. She did have some abdominal discomfort and did not have any bowel movement, but no nausea or vomiting. PHYSICAL EXAMINATION: Blood pressure is 148/94 with a pulse of 91, temperature 98.9. She is 95% on room air. General description is a middle-aged female lying in bed in no distress. RESPIRATORY SYSTEM: Unlabored breathing. Clear to auscultation anteriorly. HEART: S1, S2. Regular rate and rhythm. ABDOMEN: Soft. No tenderness. LABS: Hemoglobin is 12.6, white count 6.8. BUN of 8, creatinine 0.68. Blood culture has been negative. DIAGNOSTIC IMPRESSION AND PLAN: Patient with leukocytosis, abdominal source, in this patient who did have a near- strangulated hernia, status post repair, now with clinical course complicated by large bowel ileus. The patient is currently covered with Zosyn; to continue. White count is normal. Monitor clinical course closely. MMODL / IJN: [id number] /
[2018-12-17] MEDS: cloNIDine 0.1 MG/24HR PATCH TRANSDERM SCH (21:44)
--- NOTE | 2018-12-17 22:28 | P.PN ---
Subjective Progress Note Date: 12/15/18 Principal diagnosis: Small bowel obstruction status post explorative laparotomy and lysis of adhesions 58-year-old female with a known history of bariatric surgery 3 years ago, recent bowel obstruction in July 2018 status post surgery by Dr. Rodriguez, COPD, ongoing nicotine addiction, history of CVA/TIA, type or myalgia, GERD, hypertension, diabetes type 2 resolved after bariatric surgery, Hernandez's esophagus, abdominal incisional hernias and other multiple medical problems came to ER with complaints of nausea vomiting for the past 2 days. Patient is admitted for small bowel obstruction for surgical evaluation 12/12/2018 Patient is seen and evaluated with family members at bedside; continues to complain of severe uncontrolled abdominal pain; patient and family report that Dilaudid is making pain worse; patient agrees to use IV morphine for pain control Vital signs with temperature of 98.4, pulse 113, respiration 18 and blood pressure 164/100 and SpO2 of 96% on room air Lab review shows a white blood count of 18.1 which has markedly escalated from 10.9 yesterday with neutrophil count of 15.8 We will start patient on IV Zosyn and monitor pro-calcitonin and CRP levels; blood and urine cultures are ordered; we will consult ID for further recommendations Gen. surgery is following and patient is for possibly exploratory laparotomy thi s afternoon 12/12/2018 Postoperative day# 1 status post explarotory laparotomy for acute small bowel obstruction with near strangulation due to adhesions; patient underwent adhenolysis; epidural catheter placed for postoperative pain control, and patient gets continuous infusion of Dilaudid/bupivacaine but patient started complaining of severe headache, there was concern about posterior puncture headache, pidural catheter was removed surgery is following and agreeing with epidural catheter removal for possible spinal headache; patient has been started on sips of clear liquids Sepsis/ischemic bowel; patient remains on IV Zosyn and ID to see patient 12/13/2018 Patient is seen and evaluated in follow-up at bedside; she is status post explor atory laparotomy with lysis of adhesions resulting in obstruction of internal hernia; patient's epidural catheter was removed yesterday and she does report improvement in pain control; patient has been started on clear liquid diet and tolerating well Vital signs remained stable with a temperature of 98.3, pulse 96, respiration 20 and blood pressure 152/98 with SpO2 of 97% on room air Lab review shows a normal white blood count of 9.1 from 18.1 upon admission; sodium of 136, potassium 3.2; we will supplement with 40 mEq of IV potassium; ID has evaluated patient and recommended to continue with Zosyn 3.375 g IV every 8 hours for concern for small bowel strangulation and possible ischemia; await final recommendations from ID regarding final antibiotic and duration 12/14/2018 Patient says that her abdominal pain is better. Able to pass flatus. Otherwise patient is complaining of headache. Epidural is off since yesterday. Currently patient is tolerating clear liquids. No complaints of fever or chills. Laboratory data showed potassium level III.1 which is being replaced as per protocol. No chest pain or shortness of breath. General surgery is following. 12/15/2018 Patient is still having abdominal discomfort able to pass flatus and small bowel movements. CT of the abdominal pelvis was repeated today. complains of chest pain or shortness of breath. No nausea vomiting. No fever no chills. No cough or sputum production. Current medications reviewed. Objective - Vital Signs Vital signs: Vital Signs Temp 98.3 F 12/15/18 04:55 Pulse 80 12/15/18 08:44 Resp 16 12/15/18 08:00 BP 156/98 12/15/18 04:55 Pulse Ox 94 L 12/15/18 08:30 Intake & Output 12/14/18 12/15/18 12/15/18 18:59 06:59 18:59 Intake Total 540 Balance 540 Intake: Oral 540 Other: Voiding Method Toilet # Voids 2 1 - Exam Patient is lying in the bed awake alert and oriented. He appears to be in mild distress due to pain. Lethargic and drowsy. HEENT: Normocephalic. Neck is supple. Pupils reactive. Nostrils clear. Oral cavity is moist. Ears reveal no drainage. Neck reveals no JVD, carotid bruits, or thyromegaly. CHEST EXAMINATION: Trachea is central. Symmetrical expansion. Bibasilar initiating treatment. Lung garcia clear to auscultation and percussion. CARDIAC: Normal S1, S2 with no gallops. No murmurs ABDOMEN: Soft. Bowel sounds sluggish. No organomegaly. No abdominal bruits. Extremities: reveal no edema. No clubbing or cyanosis - Labs CBC & Chem 7: 12/17/18 08:42 10/24/19 08:42 Labs: Abnormal Lab Results - Last 24 Hours (Table) 12/14/18 12/15/18 Range/Units 10:52 09:43 Potassium 3.2 L 2.9 L (3.5-5.1) mmol/L BUN 5 L 4 L (7-17) mg/dL Glucose 113 H 110 H (74-99) mg/dL Calcium 8.3 L 8.3 L (8.4-10.2) mg/dL Microbiology - Last 24 Hours (Table) 12/11/18 10:58 Blood Culture - Preliminary Blood No Growth after 72 hours Assessment and Plan Assessment: Intractable abdominal pain secondary to small bowel obstruction. Status post expiratory laparotomy and lysis of adhesions on 12/11/2018 Recent history of nausea vomiting and diarrhea History of small bowel obstruction status post surgery in July 2018 Previous history of gastric bypass surgery about 3 years ago Fibromyalgia GERD Hernandez's esophagus status post surgically removed Chronic back pain and neck pain History of CVA/TIA with mild left-sided weakness Migraine headaches History of multiple falls Uncontrolled hypertension Diabetes type 2 resolved after bariatric surgery COPD stable. History of heart valve replacement several years ago Depression/anxiety Ongoing nicotine addiction DVT prophylaxis with heparin subcu Plan: Patient be continued on IV hydration and pain management. pt is s/p surgery. . Patient is on multiple pain medications including Suboxone, Robaxin, elevated, Tylenol and NEURONTIN. WILL HOLD HOME MEDICATIONS AND CONTINUE WITH PAIN management with Dilaudid. Catapres patch for better blood pressure control. Breathing treatments as needed. Gen. surgery is following. Prognosis is guarded. Time with Patient: Greater than 30
[2018-12-17 23:40] LABS: Glucose,Whole Blood 198 mg/dL (75-99)
[2018-12-18] MEDS: HYDROmorphone 1 MG/ML 1 ML SYRINGE IVP PRN ×2 (00:10→04:13)
[2018-12-18] MEDS: SODIUM CHLORIDE 0.9% 1,000 ML IV SCH ×2 (03:17→11:15)
[2018-12-18] MEDS: IPRATROPIUM-ALBUTEROL 3 ML NEB INHALATION SCH ×4 (04:04→19:12)
[2018-12-18] MEDS: 1: MVI, ADULT NO.4 WITH VIT K 10 ML, TRACE (CONC-1ML/DOSE) 1 ML, PARENTERAL ELECTROLYTES IV SCH ×8 (04:45→16:29)
[2018-12-18] MEDS: METOCLOPRAMIDE 5 MG/ML 2 ML VIAL IVP SCH ×3 (05:34→17:43)
[2018-12-18] MEDS: SIMETHICONE 40 MG/0.6 ML DROPS 2,000 MG/30 ML BOTTLE PO SCH ×3 (05:36→17:44)
[2018-12-18 05:58] LABS: Glucose,Whole Blood 142 mg/dL (75-99)
[2018-12-18] MEDS: SYMBICORT 160-4.5 MCG INHALER INHALATION SCH ×2 (07:57→19:12)
[2018-12-18] MEDS: GABAPENTIN 300 MG CAP PO SCH ×3 (08:05→22:01)
[2018-12-18] MEDS: guaiFENesin 600 MG TABLET.ER PO SCH ×2 (08:05→22:00)
[2018-12-18] MEDS: HEPARIN SODIUM,PORCINE 5,000 UNIT/ML 1 ML VIAL SQ SCH ×2 (08:05→16:34)
[2018-12-18] MEDS: PANTOPRAZOLE 40 MG/10 ML VIAL IVP SCH ×2 (08:05→22:00)
[2018-12-18] MEDS: PIPERACILLIN-TAZOBACTAM 3.375 GM in SODIUM CHLORIDE 0.9% 100 ML IVPB SCH ×2 (08:05→16:37)
[2018-12-18] MEDS: BISACODYL 10 MG SUPP RECTAL SCH (08:05)
[2018-12-18] MEDS: MAGNESIUM HYDROXIDE 2,400 MG/10 ML CUP PO SCH (08:05)
[2018-12-18] MEDS: METHOCARBAMOL 750 MG TAB PO SCH ×3 (08:06→22:01)
[2018-12-18] MEDS: VENLAFAXINE HCL ER 150 MG CAP PO SCH ×2 (08:06→22:01)
[2018-12-18] MEDS: HYDROmorphone 1 MG/ML 1 ML SYRINGE IM PRN ×2 (08:13→13:53)
[2018-12-18 08:24] LABS: African American GFR (CKD) >90 (>60 ml/min/1.73 sqM); Anion Gap 5 mmol/L; Blood Urea Nitrogen 11 mg/dL (7-17); Calcium 8.9 mg/dL (8.4-10.2); Carbon Dioxide 26 mmol/L (22-30); Chloride 106 mmol/L (98-107); Glucose 106 mg/dL (74-99); Non-African American GFR(CKD) >90 (>60 ml/min/1.73 sqM); Phosphorus 3.9 mg/dL (2.5-4.5); Sodium 137 mmol/L (137-145)
[2018-12-18 08:26] LABS: Potassium 4.4 mmol/L (3.5-5.1)
[2018-12-18 08:27] LABS: Magnesium 2.3 mg/dL (1.6-2.3)
[2018-12-18 11:54] LABS: Glucose,Whole Blood 124 mg/dL (75-99)
--- NOTE | 2018-12-18 13:55 | P.PN ---
Subjective Progress Note Date: 12/18/18 CHIEF COMPLAINT: Abdominal pain HISTORY OF PRESENT ILLNESS: Patient is status post open exploratory laparotomy with lysis of adhesions performed on 12/11/2018. POD #7. Patient examined at the bedside. She reports her abdominal pain and bloating has resolved. She is passing flatus and having bowel movements. PPN infusing. PHYSICAL EXAM: VITAL SIGNS: Reviewed. GENERAL: Well-developed in no acute distress. HEENT: No sclera icterus. Extraocular movements grossly intact. Moist buccal mucosa. Head is atraumatic, normocephalic. ABDOMEN: Soft. Nondistended. Dressing CDI. Abdominal binder noted. NEUROLOGIC: Alert and oriented. Cranial nerves II through XII grossly intact. ASSESSMENT: 1. Small bowel obstruction, status post exploratory laparotomy with lysis of adhesions 2. Small and large bowel Ileus 3. Hypokalemia 4. Hypomagnesemia PLAN: 1. Begin clear liquid diet 2. Pain control. Avoid IV narcotics. Begin [place]. 3. Increase activity 4. Incentive spirometer 10 times an hour while awake 5. Continue bowel regimen 6. Continue PPN until patient consuming 75% of trays per bedspread cutter hand Nurse practitioner note has been reviewed by physician. Signing provider agrees with the documented findings, assessment, and plan of care. Objective - Vital Signs Vital signs: Vital Signs Temp 96.5 F L 12/18/18 08:54 Pulse 88 12/18/18 12:40 Resp 18 12/18/18 11:00 BP 162/107 12/18/18 08:54 Pulse Ox 96 12/18/18 08:54 Intake & Output 12/17/18 12/18/18 12/18/18 18:59 06:59 18:59 Weight 53.9 kg Other: Voiding Method Toilet Toilet Toilet # Voids 3 3 # Bowel Movements 0 - Labs CBC & Chem 7: 12/17/18 08:42 12/18/18 07:41 Labs: Abnormal Lab Results - Last 24 Hours (Table) 12/17/18 12/17/18 12/18/18 Range/Units 17:18 23:37 05:54 Glucose (74-99) mg/dL POC Glucose (mg/dL) 121 H 198 H 142 H (75-99) mg/dL 12/18/18 12/18/18 Range/Units 07:41 11:52 Glucose 106 H (74-99) mg/dL POC Glucose (mg/dL) 124 H (75-99) mg/dL Microbiology - Last 24 Hours (Table) 12/11/18 10:58 Blood Culture - Final Blood No Growth after 144 hours
--- NOTE | 2018-12-18 15:40 | P.PN ---
Subjective Progress Note Date: 12/18/18 Principal diagnosis: Small bowel obstruction status post explorative laparotomy and lysis of adhesions 58-year-old female with a known history of bariatric surgery 3 years ago, recent bowel obstruction in July 2018 status post surgery by Dr. Rodriguez, COPD, ongoing nicotine addiction, history of CVA/TIA, type or myalgia, GERD, hypertension, diabetes type 2 resolved after bariatric surgery, Hernandez's esophagus, abdominal incisional hernias and other multiple medical problems came to ER with complaints of nausea vomiting for the past 2 days. Patient is admitted for small bowel obstruction for surgical evaluation 12/12/2018 Patient is seen and evaluated with family members at bedside; continues to complain of severe uncontrolled abdominal pain; patient and family report that Dilaudid is making pain worse; patient agrees to use IV morphine for pain control Vital signs with temperature of 98.4, pulse 113, respiration 18 and blood pressure 164/100 and SpO2 of 96% on room air Lab review shows a white blood count of 18.1 which has markedly escalated from 10.9 yesterday with neutrophil count of 15.8 We will start patient on IV Zosyn and monitor pro-calcitonin and CRP levels; blood and urine cultures are ordered; we will consult ID for further recommendations Gen. surgery is following and patient is for possibly exploratory laparotomy this afternoon 12/12/2018 Postoperative day# 1 status post explarotory laparotomy for acute small bowel obstruction with near strangulation due to adhesions; patient underwent a dhenolysis; epidural catheter placed for postoperative pain control, and patient gets continuous infusion of Dilaudid/bupivacaine but patient started complaining of severe headache, there was concern about posterior puncture headache, pidural catheter was removed surgery is following and agreeing with epidural catheter removal for possible spinal headache; patient has been started on sips of clear liquids Sepsis/ischemic bowel; patient remains on IV Zosyn and ID to see patient 12/13/2018 Patient is seen and evaluated in follow-up at bedside; she is status post exploratory laparotomy with lysis of adhesions resulting in obstruction of internal hernia; patient's epidural catheter was removed yesterday and she does report improvement in pain control; patient has been started on clear liquid diet and tolerating well Vital signs remained stable with a temperature of 98.3, pulse 96, respiration 20 and blood pressure 152/98 with SpO2 of 97% on room air Lab review shows a normal white blood count of 9.1 from 18.1 upon admission; sodium of 136, potassium 3.2; we will supplement with 40 mEq of IV potassium; ID has evaluated patient and recommended to continue with Zosyn 3.375 g IV every 8 hours for concern for small bowel strangulation and possible ischemia; await final recommendations from ID regarding final antibiotic and duration 12/14/2018 Patient says that her abdominal pain is better. Able to pass flatus. Otherwise patient is complaining of headache. Epidural is off since yesterday. Currently patient is tolerating clear liquids. No complaints of fever or chills. Laboratory data showed potassium level III.1 which is being replaced as per protocol. No chest pain or shortness of breath. General surgery is following. Current medications reviewed. 12/16/2018 Patient is sitting up in bed in no acute distress. Patient states that she feels constipated and has been passing some gas and feels like she needs to have a bowel movement but is not coming out. States that she doesn't want a strain to have a bowel movement and would like something for this. Dulcolax suppository was ordered. Surgery is following closely status post laparotomy w ith lysis of adhesions, small bowel obstruction with near strangulation due to the adhesions. Patient is tolerating liquids but will be made nothing by mouth except for ice chips and popsicles per surgery recommendations and possible parenteral nutrition. Family was in discussing their concerns with surgery and was requesting a transfer to [facility] or [facility] for further care. Was made aware by case management at the transfer was not approved at this time due to possible prior authorization of insurance and this was not a transfer for higher level of care but rather a transfer request by family. Will continue to monitor closely. 12/17/2018 Patient is lying in bed sleeping but easily arousable. Patient states that she feels tired today but overall better than yesterday. Patient states that she did have a few bowel movements yesterday after the suppository and has also been passing gas and the bloating has gone down tremendously. Abdominal binder still in place. No acute overnight issues. Patient is to continue with nothing by mouth except for ice chips and popsicles per surgery recommendations and is currently receiving PPN for nutrition. Patient may advance diet tomorrow if symptoms continue to improve per surgery. Patient denies any chest pain, shortness of breath, or palpitations at this time. Patient is afebrile. Patient denies any nausea or vomiting at this time. Guarded prognosis. Will continue to monitor closely. 12/18/2018 Patient is sitting up in bed in no acute distress enjoying a popsicle with no acute overnight issues. Patient states that her abdominal pain, bloating, and discomfort has much improved and has been passing gas and having bowel movements with no issues. Per surgery recommendations patient will advance to clear liquid diet and continue to monitor closely. Patient will remain on PPN nutrition until consuming more by mouth. Patient denies any chest pain, shortness of breath, or palpitations at this time. Patient is afebrile. Patient denies any nausea or vomiting and is tolerating clear liquids thus far. Guarded prognosis. Will continue to monitor closely. Objective - Vital Signs Vital signs: Vital Signs Temp 98.7 F 12/18/18 13:00 Pulse 97 12/18/18 13:00 Resp 18 12/18/18 13:00 BP 135/89 12/18/18 13:00 Pulse Ox 97 12/18/18 13:00 Intake & Output 12/17/18 12/18/18 12/18/18 18:59 06:59 18:59 Weight 53.9 kg Other: Voiding Method Toilet Toilet Toilet # Voids 3 3 # Bowel Movements 0 - Exam Patient is lying in the bed sleeping but easily arousable, alert and oriented. Patient appears to be in no acute distress. Vital signs are stable. HEENT: Normocephalic. Neck is supple. Pupils reactive. Nostrils clear. Oral cavity is moist. Ears reveal no drainage. Neck reveals no JVD, carotid bruits, or thyromegaly. CHEST EXAMINATION: Trachea is central. Symmetrical expansion. Diminished breath sounds at the bases. Lung garcia clear to auscultation and percussion. CARDIAC: Normal S1, S2 with no gallops. No murmurs ABDOMEN: Soft. Bowel sounds normoactive. non-distended, no tenderness noted. No organomegaly. No abdominal bruits. Extremities: reveal no edema. No clubbing or cyanosis - Labs CBC & Chem 7: 12/17/18 08:42 12/18/18 07:41 Labs: Abnormal Lab Results - Last 24 Hours (Table) 12/17/18 12/17/1819 Range/Units 17:18 23:37 05:54 Glucose (74-99) mg/dL POC Glucose (mg/dL) 121 H 198 H 142 H (75-99) mg/dL 12/18/18 12/18/18 Range/Units 07:41 11:52 Glucose 106 H (74-99) mg/dL POC Glucose (mg/dL) 124 H (75-99) mg/dL Microbiology - Last 24 Hours (Table) 12/11/18 10:58 Blood Culture - Final Blood No Growth after 144 hours Assessment and Plan Assessment: Intractable abdominal pain secondary to small bowel obstruction. Status post expiratory laparotomy and lysis of adhesions on 12/11/2018 Recent history of nausea vomiting and diarrhea History of small bowel obstruction status post surgery in July 2018 Previous history of gastric bypass surgery about 3 years ago Fibromyalgia GERD Hernandez's esophagus status post surgically removed Chronic back pain and neck pain History of CVA/TIA with mild left-sided weakness Migraine headaches History of multiple falls Uncontrolled hypertension Diabetes type 2 resolved after bariatric surgery COPD stable. History of heart valve replacement several years ago Depression/anxiety Ongoing nicotine addiction DVT prophylaxis with heparin subq Recommendations and discussion: Recommend continue current medications, management, and symptomatic treatment. Surgery is following closely. Patient is being advanced to clear liquids and advance as tolerated per surgery recommendations and will continue to monitor closely. Patient is currently receiving PPN for nutrition. Patient will continue with IV antibiotics at this time. Blood cultures thus far have been negative. Will continue to monitor closely. Will repeat a.m. labs. Guarded prognosis. Further recommendations to follow. Possible discharge in 24-48 hours.
--- NOTE | 2018-12-18 17:22 | PN ---
PROGRESS NOTE DATE OF SERVICE: 12/18/2018. REASON FOR FOLLOWUP: Leukocytosis abdominal source. INTERVAL HISTORY: The patient is currently afebrile. Patient is feeling better. The patient did have a bowel movement. Abdominal pain has improved. Denies any nausea, no vomiting. No chest pain, shortness of breath or cough. PHYSICAL EXAMINATION: Blood pressure 135/89 with pulse of 97, temperature 98.7, she is 97% on room air. General description is a middle-aged female lying in bed in no distress. Respiratory system: Unlabored breathing. Clear to auscultation anteriorly. Heart is S1, S2. Regular rate and rhythm. Abdomen soft. No tenderness. LABS: No new labs have been obtained today. DIAGNOSTIC IMPRESSION AND PLAN: Patient with leukocytosis secondary to abdominal cellulitis, in this patient who did have near strangulated hernia status post repair of the same with postop ileus, clinically slowly improving. Patient responded to Zosyn to switch to a short course of oral antibiotic once her oral intake improves. Continue supportive care. MMODL / IJN: [id number] / MTDDrew
[2018-12-18 19:16] VITALS: RESP 16
[2018-12-18] MEDS ORDERED: diphenhydrAMINE 25 MG CAP PO PRN (21:53)
[2018-12-18] MEDS: HYDROcodone/APAP 5-325MG 1 EACH TAB PO PRN (22:01)
[2018-12-19] MEDS: SIMETHICONE 40 MG/0.6 ML DROPS 2,000 MG/30 ML BOTTLE PO SCH ×3 (00:35→12:57)
[2018-12-19] MEDS: HEPARIN SODIUM,PORCINE 5,000 UNIT/ML 1 ML VIAL SQ SCH ×2 (00:36→08:29)
[2018-12-19] MEDS: METOCLOPRAMIDE 5 MG/ML 2 ML VIAL IVP SCH ×3 (00:36→12:58)
[2018-12-19] MEDS: HYDROmorphone 1 MG/ML 1 ML SYRINGE IM PRN (00:36)
[2018-12-19] MEDS: PIPERACILLIN-TAZOBACTAM 3.375 GM in SODIUM CHLORIDE 0.9% 100 ML IVPB SCH ×2 (00:36→08:31)
[2018-12-19] MEDS: SODIUM CHLORIDE 0.9% 1,000 ML IV SCH (02:16)
[2018-12-19] MEDS: IPRATROPIUM-ALBUTEROL 3 ML NEB INHALATION SCH ×3 (03:15→11:33)
[2018-12-19 05:45] LABS: Glucose,Whole Blood 121 mg/dL (75-99)
[2018-12-19] MEDS: HYDROcodone/APAP 5-325MG 1 EACH TAB PO PRN ×2 (06:18→09:57)
[2018-12-19 08:24] LABS: African American GFR (CKD) >90 (>60 ml/min/1.73 sqM); Anion Gap 8 mmol/L; Blood Urea Nitrogen 10 mg/dL (7-17); Calcium 9.4 mg/dL (8.4-10.2); Carbon Dioxide 27 mmol/L (22-30); Chloride 105 mmol/L (98-107); Glucose 141 mg/dL (74-99); Magnesium 2.4 mg/dL (1.6-2.3); Non-African American GFR(CKD) 84 (>60 ml/min/1.73 sqM); Phosphorus 4.4 mg/dL (2.5-4.5); Potassium 4.3 mmol/L (3.5-5.1); Sodium 140 mmol/L (137-145)
[2018-12-19] MEDS: guaiFENesin 600 MG TABLET.ER PO SCH (08:29)
[2018-12-19] MEDS: PANTOPRAZOLE 40 MG/10 ML VIAL IVP SCH (08:29)
[2018-12-19] MEDS: MAGNESIUM HYDROXIDE 2,400 MG/10 ML CUP PO SCH (08:29)
[2018-12-19] MEDS: GABAPENTIN 300 MG CAP PO SCH (08:29)
[2018-12-19] MEDS: METHOCARBAMOL 750 MG TAB PO SCH (08:30)
[2018-12-19] MEDS: BISACODYL 10 MG SUPP RECTAL SCH (08:30)
[2018-12-19] MEDS: VENLAFAXINE HCL ER 150 MG CAP PO SCH (08:31)
--- NOTE | 2018-12-19 09:51 | P.PN ---
Subjective Progress Note Date: 12/19/18 Principal diagnosis: Small bowel obstruction Patient doing well today. Tolerating regular diet. Good bowel movements today and yesterday. Would like to go home today. Pain is controlled. Objective - Vital Signs Vital signs: Vital Signs Temp 98.1 F 12/19/18 05:45 Pulse 83 12/19/18 05:45 Resp 16 12/19/18 05:45 BP 151/95 12/19/18 05:45 Pulse Ox 97 12/19/18 05:45 Intake & Output 12/18/18 12/19/18 12/19/18 18:59 06:59 18:59 Intake Total 400 Output Total 1 1 Balance 400 -1 -1 Weight 53.9 kg Intake: Oral 400 Output: Stool 1 1 Other: Voiding Method Toilet Toilet # Voids 2 1 - Exam Abdomen: Soft, nondistended, incision clean and dry, nontender - Labs CBC & Chem 7: 12/17/18 08:42 12/19/18 07:47 Labs: Abnormal Lab Results - Last 24 Hours (Table) 12/18/18 12/19/18 12/19/18 Range/Units 11:52 05:43 07:47 Glucose 141 H (74-99) mg/dL POC Glucose (mg/dL) 124 H 121 H (75-99) mg/dL Magnesium 2.4 H (1.6-2.3) mg/dL Assessment and Plan (1) Partial small bowel obstruction Narrative/Plan: Patient doing well today. Would like to go home. Stable for discharge. Follow-up with Dr. Muller post discharge. Current Visit: Yes Status: Acute Code(s): K56.600 - PARTIAL INTESTINAL OBSTRUCTION, UNSPECIFIED TO CAUSE SNOMED Code(s): 252823717
[2018-12-19] MEDS: SYMBICORT 160-4.5 MCG INHALER INHALATION SCH (10:30)
[2018-12-19 13:46] VITALS: BP 136/83; PULSE 96; TEMP 98.3
--- NOTE | 2018-12-19 17:01 | PN ---
PROGRESS NOTE DATE OF SERVICE: 12/19/2018 REASON FOR FOLLOWUP: Leukocytosis, abdominal source. INTERVAL HISTORY: The patient was seen on rounds this afternoon. The patient has been afebrile. Patient is breathing comfortably. The patient denies having any chest pain, shortness of breath or cough. Abdominal pain has improved. No nausea, vomiting. Did have a bowel movement. PHYSICAL EXAMINATION: Blood pressure 136/83 with a pulse of 96, temperature 98.6. She is 96% on room air. General description is a middle-aged female lying in bed in no distress. Respiratory system: Unlabored breathing, clear to auscultation anteriorly. Heart S1, S2. Regular rate and rhythm. Abdomen is soft, no tenderness. LABS: Creatinine 0.79. Blood culture has been negative. DIAGNOSTIC IMPRESSION AND PLAN: Patient with leukocytosis, abdominal source in this patient did have a component of near strangulation of internal hernia status post operative repair of the same. The patient's white count has normalized. Cultures have been negative. She has received adequate antibiotic therapy. As there is no clinical focus of infection, recommend no antibiotic on discharge. PICC should be discussed before discharge. Discussed with the nurse. MMODL / IJN: [id number] / MTDDrew
--- NOTE | 2018-12-27 23:13 | P.DS ---
Providers Date of admission: 12/10/18 16:08 Expected date of discharge: 12/19/18 Attending physician: Mirza Lara Consults: 12/10/18 16:09 Consult Physician Routine Consulting Provider: Rayne Fleming Consult Reason/Comments: Partial small bowel obstruction, abdominal pain Do you want consulting provider notified?: Yes 12/11/18 12:20 Consult Physician Routine Consulting Provider: Dwayne Luis Consult Reason/Comments: leukocytosis Do you want consulting provider notified?: Yes Primary care physician: Frances Meyer Hospital Course: discharge Diagnosis Intractable abdominal pain secondary to small bowel obstruction. Status post expiratory laparotomy and lysis of adhesions on 12/11/2018 Recent history of nausea vomiting and diarrhea History of small bowel obstruction status post surgery in July 2018 Previous history of gastric bypass surgery about 3 years ago Fibromyalgia GERD Hernandez's esophagus status post surgically removed Chronic back pain and neck pain History of CVA/TIA with mild left-sided weakness Migraine headaches History of multiple falls Uncontrolled hypertension Diabetes type 2 resolved after bariatric surgery COPD stable. History of heart valve replacement several years ago Depression/anxiety Ongoing nicotine addiction DVT prophylaxis with heparin subq Hospital course 58-year-old female with a known history of bariatric surgery 3 years ago, recent bowel obstruction in July 2018 status post surgery by Dr. Rodriguez, COPD, ongoing nicotine addiction, history of CVA/TIA, type or myalgia, GERD, hypertension, diabetes type 2 resolved after bariatric surgery, Hernandez's esophagus, abdominal incisional hernias and other multiple medical problems came to ER with complaints of nausea vomiting for the past 2 days. Patient is admitted for small bowel obstruction for surgical evaluation 12/12/2018 Patient is seen and evaluated with family members at bedside; continues to complain of severe uncontrolled abdominal pain; patient and family report that Dilaudid is making pain worse; patient agrees to use IV morphine for pain control Vital signs with temperature of 98.4, pulse 113, respiration 18 and blood pressure 164/100 and SpO2 of 96% on room air Lab review shows a white blood count of 18.1 which has markedly escalated from 10.9 yesterday with neutrophil count of 15.8 We will start patient on IV Zosyn and monitor pro-calcitonin and CRP levels; blood and urine cultures are ordered; we will consult ID for further recommendations Gen. surgery is following and patient is for possibly exploratory laparotomy this afternoon 12/12/2018 Postoperative day# 1 status post explarotory laparotomy for acute small bowel obstruction with near strangulation due to adhesions; patient underwent adhenolysis; epidural catheter placed for postoperative pain control, and patient gets continuous infusion of Dilaudid/bupivacaine but patient started complaining of severe headache, there was concern about posterior puncture headache, pidural catheter was removed surgery is following and agreeing with epidural catheter removal for possible spinal headache; patient has been started on sips of clear liquids Sepsis/ischemic bowel; patient remains on IV Zosyn and ID to see patient 12/13/2018 Patient is seen and evaluated in follow-up at bedside; she is status post exploratory laparotomy with lysis of adhesions resulting in obstruction of internal hernia; patient's epidural catheter was removed yesterday and she does report improvement in pain control; patient has been started on clear liquid diet and tolerating well Vital signs remained stable with a temperature of 98.3, pulse 96, respiration 20 and blood pressure 152/98 with SpO2 of 97% on room air Lab review shows a normal white blood count of 9.1 from 18.1 upon admission; sodium of 136, potassium 3.2; we will supplement with 40 mEq of IV potassium; ID has evaluated patient and recommended to continue with Zosyn 3.375 g IV every 8 hours for concern for small bowel strangulation and possible ischemia; await final recommendations from ID regarding final antibiotic and duration 12/14/2018 Patient says that her abdominal pain is better. Able to pass flatus. Otherwise patient is complaining of headache. Epidural is off since yesterday. Currently patient is tolerating clear liquids. No complaints of fever or chills. Laboratory data showed potassium level III.1 which is being replaced as per protocol. No chest pain or shortness of breath. General surgery is following. Current medications reviewed. 12/16/2018 Patient is sitting up in bed in no acute distress. Patient states that she feels constipated and has been passing some gas and feels like she needs to have a bowel movement but is not coming out. States that she doesn't want a strain to have a bowel movement and would like something for this. Dulcolax suppository was ordered. Surgery is following closely status post laparotomy with lysis of adhesions, small bowel obstruction with near strangulation due to the adhesions. Patient is tolerating liquids but will be made nothing by mouth except for ice chips and popsicles per surgery recommendations and possible parenteral nutrition. Family was in discussing their concerns with surgery and was requesting a transfer to [facility] or [facility] for further care. Was made aware by case management at the transfer was not approved at this time due to possible prior authorization of insurance and this was not a transfer for higher level of care but rather a transfer request by family. Will continue to monitor closely. 12/17/2018 Patient is lying in bed sleeping but easily arousable. Patient states that she feels tired today but overall better than yesterday. Patient states that she did have a few bowel movements yesterday after the suppository and has also been passing gas and the bloating has gone down tremendously. Abdominal binder still in place. No acute overnight issues. Patient is to continue with nothing by mouth except for ice chips and popsicles per surgery recommendations and is currently receiving PPN for nutrition. Patient may advance diet tomorrow if symptoms continue to improve per surgery. Patient denies any chest pain, shortness of breath, or palpitations at this time. Patient is afebrile. Patient denies any nausea or vomiting at this time. Guarded prognosis. Will continue to monitor closely. 12/18/2018 Patient is sitting up in bed in no acute distress enjoying a popsicle with no acute overnight issues. Patient states that her abdominal pain, bloating, and discomfort has much improved and has been passing gas and having bowel movements with no issues. Per surgery recommendations patient will advance to clear liquid diet and continue to monitor closely. Patient will remain on PPN nutrition until consuming more by mouth. Patient denies any chest pain, shortness of breath, or palpitations at this time. Patient is afebrile. Patient denies any nausea or vomiting and is tolerating clear liquids thus far. Guarded prognosis. Will continue to monitor closely. 12/19/18 Patient doing well today. Tolerating regular diet. Good bowel movements today and yesterday. Would like to go home today. Pain is controlled. Vital Signs Temp 98.1 F 12/19/18 05:45 Pulse 83 12/19/18 05:45 Resp 16 12/19/18 05:45 BP 151/95 12/19/18 05:45 Pulse Ox 97 12/19/18 05:45 Intake & Output 12/18/18 12/19/1819 18:59 06:59 18:59 Intake Total 400 Output Total 1 1 Balance 400 -1 -1 Weight 53.9 kg Intake: Oral 400 Output: Stool 1 1 Other: Voiding Method Toilet Toilet # Voids 2 1 Patient is lying in the bed sleeping but easily arousable, alert and oriented. Patient appears to be in no acute distress. Vital signs are stable. HEENT: Normocephalic. Neck is supple. Pupils reactive. Nostrils clear. Oral cavi ty is moist. Ears reveal no drainage. Neck reveals no JVD, carotid bruits, or thyromegaly. CHEST EXAMINATION: Trachea is central. Symmetrical expansion. Diminished breath sounds at the bases. Lung garcia clear to auscultation and percussion. CARDIAC: Normal S1, S2 with no gallops. No murmurs ABDOMEN: Soft. Bowel sounds normoactive. non-distended, no tenderness noted. No organomegaly. No abdominal bruits. Extremities: reveal no edema. No clubbing or cyanosis time taken >35 min Patient Condition at Discharge: Fair Plan - Discharge Summary Discharge Rx Participant: Yes New Discharge Prescriptions: New Bisacodyl [Dulcolax] 10 mg RECTAL DAILY PRN #10 supp PRN Reason: Constipation Continue Albuterol Nebulized [Ventolin Nebulized] 2.5 mg INHALATION RT-TID Venlafaxine HCl [Effexor XR] 150 mg PO BID Tiotropium [place] [Spiriva] 1 cap INHALATION RT-DAILY Budesonide/Formoterol Fumarate [Symbicort 160-4.5 Mcg Inhaler] 2 puff INHALATION RT-BID Alive Ultra Potency 1 tab PO DAILY Acetaminophen/Diphenhydramine [Tylenol PM 500-25mg] 2 tab PO HS Methocarbamol [Robaxin-750] 750 mg PO TID Acetaminophen [Tylenol Arthritis] 1,300 mg PO BID Buprenorphine HCl/Naloxone HCl [Suboxone 8 mg-2 mg Sl Film] 1 film SL TID Gabapentin [Neurontin] 300 mg PO TID Multivitamin/Iron/Folic Acid [Centrum Adults Tablet] 1 tab PO DAILY Pantoprazole [Protonix] 40 mg PO BID #60 tab [id number] [Excedrin] 1 - 2 tab PO Q6H PRN PRN Reason: Migraine Headache Calcium Carbonate [Calcium] 600 mg PO DAILY Cholecalciferol [Vitamin D3 (25 Mcg = 1000 Iu)] 4,000 unit PO DAILY Cyanocobalamin (Vitamin B-12) [Vitamin B-12] 2,000 mcg PO DAILY Megestrol Acetate 20 mg PO DAILY Mirabegron [Myrbetriq] 50 mg PO HS Discontinued Midodrine HCl [ProAmantine] 2.5 mg PO BID Sucralfate [Carafate] 1 gm PO TID #90 tablet Furosemide [Lasix] 20 mg PO DAILY PRN PRN Reason: Edema Discharge Medication List Albuterol Nebulized [Ventolin Nebulized] 2.5 mg INHALATION RT-TID 07/07/13 [History] Venlafaxine HCl [Effexor XR] 150 mg PO BID 01/12/15 [History] Budesonide/Formoterol Fumarate [Symbicort 160-4.5 Mcg Inhaler] 2 puff INHALATION RT-BID 11/17/17 [History] Tiotropium [place] [Spiriva] 1 cap INHALATION RT-DAILY 11/17/17 [History] Alive Ultra Potency 1 tab PO DAILY 12/10/17 [History] Acetaminophen/Diphenhydramine [Tylenol PM 500-25mg] 2 tab PO HS 12/30/17 [Histo ry] Methocarbamol [Robaxin-750] 750 mg PO TID 05/10/18 [History] Acetaminophen [Tylenol Arthritis] 1,300 mg PO BID 07/29/18 [History] Buprenorphine HCl/Naloxone HCl [Suboxone 8 mg-2 mg Sl Film] 1 film SL TID 07/29/18 [History] Gabapentin [Neurontin] 300 mg PO TID 08/19/18 [History] Multivitamin/Iron/Folic Acid [Centrum Adults Tablet] 1 tab PO DAILY 08/19/18 [History] Pantoprazole [Protonix] 40 mg PO BID #60 tab 08/21/18 [Rx] [id number] [Excedrin] 1 - 2 tab PO Q6H PRN 12/10/18 [History] Calcium Carbonate [Calcium] 600 mg PO DAILY 12/10/18 [History] Cholecalciferol [Vitamin D3 (25 Mcg = 1000 Iu)] 4,000 unit PO DAILY 12/10/18 [History] Cyanocobalamin (Vitamin B-12) [Vitamin B-12] 2,000 mcg PO DAILY 12/10/18 [History] Megestrol Acetate 20 mg PO DAILY 12/10/18 [History] Mirabegron [Myrbetriq] 50 mg PO HS 12/10/18 [History] Bisacodyl [Dulcolax] 10 mg RECTAL DAILY PRN #10 supp 12/19/18 [Rx] Follow up Appointment(s)/Referral(s): Mitch Daniels MD [Primary Care Provider] - 1-2 days Rayne Fleming MD [STAFF PHYSICIAN] [facility] [place] [place] [place] [facility] - 12/23/18 Patient Instructions/Handouts: Lysis of Abdominal Adhesions (IP), Bowel Obstruction (DC), Abdominal Binder (DC) Activity/Diet/Wound Care/Special Instructions: Apply Optifoam. May shower. No bath tub soaks until 01/11/2019. No lifting over 4 pounds until 4 weeks 01/11/2019. Discharge Disposition: HOME SELF-CARE
== END 2018-12-19 15:13 | disposition home or self-care (01) | DRG 854 ==
LOC: EC 14:30 → 4MS4W 16:08 → 4SSUR 16:25 → 3SCARD 17:51 → 4MS4W 12-13 12:48
PROVIDERS: ADMIT Internal Medicine; ATTEND Internal Medicine
PROC: 0DNA0ZZ Release Jejunum, Open Approach (ICD-10-PCS; principal; 2018-12-11 17:30)
DX: A41.9 Sepsis, unspecified organism (principal); K46.0 Unspecified abdominal hernia with obstruction, without gangrene; K55.9 Vascular disorder of intestine, unspecified; R18.8 Other ascites; K56.7 Ileus, unspecified; K56.50 Intestinal adhesions [bands], unspecified as to partial versus complete obstruction; D50.9 Iron deficiency anemia, unspecified; E83.42 Hypomagnesemia; E86.0 Dehydration; E87.6 Hypokalemia; F17.200 Nicotine dependence, unspecified, uncomplicated; F32.9 Major depressive disorder, single episode, unspecified; G25.81 Restless legs syndrome; G43.909 Migraine, unspecified, not intractable, without status migrainosus; G89.4 Chronic pain syndrome; I11.0 Hypertensive heart disease with heart failure; I50.9 Heart failure, unspecified; J44.9 Chronic obstructive pulmonary disease, unspecified; K21.9 Gastro-esophageal reflux disease without esophagitis; K22.70 Barrett's esophagus without dysplasia; M79.7 Fibromyalgia; Z79.51 Long term (current) use of inhaled steroids; Z79.899 Other long term (current) drug therapy; Z82.49 Family history of ischemic heart disease and other diseases of the circulatory system; Z86.73 Personal history of transient ischemic attack (TIA), and cerebral infarction without residual deficits; Z91.81 History of falling; Z95.2 Presence of prosthetic heart valve; Z98.1 Arthrodesis status; Z98.84 Bariatric surgery status; Z88.6 Allergy status to analgesic agent; Z91.018 Allergy to other foods; Z90.49 Acquired absence of other specified parts of digestive tract; Z96.60 Presence of unspecified orthopedic joint implant
CPT/HCPCS: 36410; 36415; 71046; 74018; 74176; 76937; 80048; 80053; 81003; 82330; 82550; 83605; 83690; 83735; 84100; 84132; 84145; 84478; 84484; 85025; 86140; 86850; 86900; 86901; 87040; 94640; 94760; 96361; 96372; 96374; 96375; 96376; 99285

== ENCOUNTER → 2018-12-30 | Outpatient (CLI) | payer MEDICARE ==
[2018-12-30 16:14] VITALS: BP 127/85; PULSE 111; TEMP 97.9; BMI 17.9
--- NOTE | 2018-12-30 16:38 | P.PN ---
Subjective Progress Note Date: 12/30/18 She is status post surgery. Has chronic nausea all medications. fu after thanksgiving. Objective - Vital Signs Vital signs: Vital Signs Temp 97.9 F 12/30/18 16:10 Pulse 111 H 12/30/18 16:10 Resp BP 127/85 12/30/18 16:10 Pulse Ox Intake & Output 12/29/18 12/30/18 12/30/18 18:59 06:59 18:59 Weight 50.349 kg
== END | disposition home or self-care (01) ==
LOC: BARWHC3 15:49
PROVIDERS: ATTEND Surgery Plastic and Reconstructive Surgery
DX: R11.0 Nausea (principal); Z98.890 Other specified postprocedural states; Z79.899 Other long term (current) drug therapy
CPT/HCPCS: 99211

== ENCOUNTER → 2019-03-15 | Outpatient (CLI) | payer MEDICARE | END | disposition home or self-care (01) | LOC: LABWHC1 15:07 | PROVIDERS: ATTEND Internal Medicine | DX: K91.2 Postsurgical malabsorption, not elsewhere classified (principal); R63.4 Abnormal weight loss; Z90.3 Acquired absence of stomach [part of]; Z98.890 Other specified postprocedural states; R14.0 Abdominal distension (gaseous) | CPT/HCPCS: 36415; 82024; 82533; 83516 ==

== ENCOUNTER → 2019-03-26 | Outpatient (CLI) | payer MEDICARE | END | disposition home or self-care (01) | LOC: LABWHC1 08:10 | PROVIDERS: ATTEND Internal Medicine | DX: Z09 Encounter for follow-up examination after completed treatment for conditions other than malignant neoplasm (principal); Z98.84 Bariatric surgery status | CPT/HCPCS: 36415; 82533 ==

== ENCOUNTER → 2019-03-31 | Outpatient (CLI) | payer MEDICARE ==
--- NOTE | 2019-03-31 15:44 | XR ---
EXAMINATION TYPE: XR shoulder limited LT DATE OF EXAM: 03/31/2019 CLINICAL HISTORY: Left shoulder pain with no known injury TECHNIQUE: Three views of the left shoulder are obtained. COMPARISON: None. FINDINGS: There is no acute fracture/dislocation evident in the left shoulder. The acromioclavicula r and glenohumeral joint spaces appear aligned. Mild acromioclavicular arthropathy with small margina l osteophytes. The visualized ribs are intact and unremarkable. Partial visualization of sternotomy wires and postsurgical change of the cervical spine. IMPRESSION: There is no acute fracture or dislocation in the left shoulder. Mild acromioclavicular a rthropathy.
== END | disposition home or self-care (01) ==
LOC: RADXRMAIN 15:23
PROVIDERS: ATTEND Internal Medicine
DX: M12.812 Other specific arthropathies, not elsewhere classified, left shoulder (principal)

== ENCOUNTER → 2019-03-31 | Outpatient (CLI) | payer MEDICARE ==
[2019-03-31 14:56] VITALS: BP 151/99; PULSE 86; TEMP 98.3; BMI 20.8
--- NOTE | 2019-03-31 15:08 | P.PN ---
Subjective Progress Note Date: 03/31/19 DATE OF SERVICE: 03/31/2019 CHIEF COMPLAINT: Protein malnutrition HISTORY OF PRESENT ILLNESS: Kassy Lopez is a 58-year-old female status post gastric bypass on 11/06/2015. She is 3 years out. She comes in from [facility] for malabsorption. She was recommended to take Alive twice daily and she feels better. She has gained weight to 129 pounds of 30 pounds in 6 months. She is eating crackers to gain weight. She is eating more carbohydrates. She denies any more nausea. Her ideal body weight for 5 foot 6 inch frame is 154 pound. Her highest weight was 278 pounds. Today she comes in weighing 129 pounds from 111 pounds, 3 months ago. She has gained 18 pounds in 3 months. She has lost 149 pounds lifetime. Body mass index is reduced from 45.0 down to 20.8. Her percent excess weight loss is 120 %. PHYSICAL EXAM: VITAL SIGNS: 5 foot 6, 129 pounds. Body mass is 20.8 Vital Signs Temp 98.3 F 03/31/19 14:48 Pulse 86 03/31/19 14:48 Resp BP 151/99 03/31/19 14:48 Pulse Ox ABDOMEN: Soft, nontender, nondistended. No hernia MUSCULOSKELETAL: No clubbing, cyanosis, or edema. GENERAL: Well-developed female in no acute distress. CARDIOVASCULAR: Regular rate and rhythm. 2+ distal pulses. HEENT: Head atraumatic, normocephalic. No nasal drainage. Hears is conversational speech. CHEST: Nonlabored respirations. Equal bilateral excursions. NECK: Supple without lymphadenopathy. NEURO: No focal or lateralizing signs. Cranial nerves II through XII grossly intact. PSYCH: Appropriate affect. Alert and oriented to person, place and time. SKIN: Well perfused. Good skin turgor. ASSESSMENT: 1. Morbid obesity and excess calories. 2. Body mass index reduced from 45.0 down to 20.8 3. Status post gastric bypass. 4. Restless leg syndrome. 5. Obstructive sleep apnea, resolved. 6. Secondary hyperparathyroidism. 7. Thiamine deficiency, resolved. 8. Hypertriglyceridemia. 9. Prior history of active tobacco use, now in remission. 10. Uzw-qktgpqc-scmrvqawi type 2 diabetes, resolved. 11. Diabetic gastroparesis. 12. History of gout. 13. History of Hernandez's esophagus. 14. Chronic obstructive pulmonary disease. 15. Vitamin D deficiency, resolved 16. Hyperlipidemia. 17. Congestive heart failure from hypertension. 18. Iron deficiency anemia. 19. Vitamin A deficiency. 20. Hypertensive heart disease, resolved. 21. Status post valvular replacement. 22. Secondary hyperparathyroidism 23. Small bowel obstruction, resolved 24. Malabsorption, resolved PLAN: 1. Will need copy of medical reports from [facility]. Medical release of information is requested. 2. Recommend adjustment of her multivitamins including increased Vitamin D and B-vitamins Objective - Vital Signs Vital signs: Vital Signs Temp 98.3 F 03/31/19 14:48 Pulse 86 03/31/19 14:48 Resp BP 151/99 03/31/19 14:48 Pulse Ox Intake & Output 03/30/19 03/31/19 03/31/19 18:59 06:59 18:59 Weight 58.513 kg
== END | disposition home or self-care (01) ==
LOC: BARWHC3 13:39
PROVIDERS: ATTEND Surgery Plastic and Reconstructive Surgery
DX: E46 Unspecified protein-calorie malnutrition (principal); E66.01 Morbid (severe) obesity due to excess calories; G25.81 Restless legs syndrome; N25.81 Secondary hyperparathyroidism of renal origin; E78.1 Pure hyperglyceridemia; K31.84 Gastroparesis; E11.43 Type 2 diabetes mellitus with diabetic autonomic (poly)neuropathy; K22.70 Barrett's esophagus without dysplasia; J44.9 Chronic obstructive pulmonary disease, unspecified; E78.5 Hyperlipidemia, unspecified; I11.0 Hypertensive heart disease with heart failure; I50.9 Heart failure, unspecified; D50.9 Iron deficiency anemia, unspecified; Z87.39 Personal history of other diseases of the musculoskeletal system and connective tissue; Z68.20 Body mass index [BMI] 20.0-20.9, adult; Z87.891 Personal history of nicotine dependence; Z98.84 Bariatric surgery status
CPT/HCPCS: 99211

== ENCOUNTER 2019-11-03 15:44 | Emergency (ER) | payer MEDICARE ==
--- NOTE | 2019-11-03 16:50 | ED ---
General Adult HPI - General Chief complaint: Recheck/Abnormal Lab/Rx Stated complaint: low potassium Time Seen by Provider: 11/03/19 16:00 Source: patient Mode of arrival: ambulatory Limitations: no limitations - History of Present Illness Initial comments: 59-year-old female presents to the emergency department for evaluation of low potassium. States she was sent from her primary care provider for evaluation of K 2.9. Patient reports associated symptoms including fatigue and muscle twitching. States she started taking Lasix for fluid retention. Denies any chest pain, palpitations, shortness of breath, or nausea and vomiting. Also denies any recent rash, fever, cough, abdominal pain, diarrhea, constipation, back pain, numbness, tingling, dizziness, weakness, hematuria, dysuria, urinary urgency, urinary frequency, headache, visual changes, or any other complaints. - Related Data Home Medications Medication Instructions Recorded Confirmed Albuterol Nebulized [Ventolin 2.5 mg INHALATION RT-TID 07/07/13 04/13/19 Nebulized] Venlafaxine HCl [Effexor XR] 150 mg PO BID 01/12/15 04/13/19 Budesonide/Formoterol Fumarate 2 puff INHALATION RT-BID 11/17/17 04/13/19 [Symbicort 160-4.5 Mcg Inhaler] Tiotropium [place] [Spiriva] 1 cap INHALATION RT-DAILY 11/17/17 04/13/19 Alive Ultra Potency 1 tab PO DAILY 12/10/17 04/13/19 Acetaminophen/Diphenhydramine 2 tab PO HS 12/30/17 04/13/19 [Tylenol PM 500-25mg] Methocarbamol [Robaxin-750] 750 mg PO TID 05/10/18 04/13/19 Acetaminophen [Tylenol Arthritis] 1,300 mg PO BID 07/29/18 04/13/19 Buprenorphine HCl/Naloxone HCl 1 film SL TID 07/29/18 04/13/19 [Suboxone 8 mg-2 mg Sl Film] Gabapentin [Neurontin] 300 mg PO TID 08/19/18 04/13/19 Multivitamin/Iron/Folic Acid 1 tab PO DAILY 08/19/18 04/13/19 [Centrum Adults Tablet] [id number] 1 - 2 tab PO Q6H PRN 12/10/18 04/13/19 [Excedrin] Calcium Carbonate [Calcium] 600 mg PO DAILY 12/10/18 04/13/19 Cholecalciferol [Vitamin D3 (25 4,000 unit PO DAILY 12/10/18 04/13/19 Mcg = 1000 Iu)] Cyanocobalamin (Vitamin B-12) 2,000 mcg PO DAILY 12/10/18 04/13/19 [Vitamin B-12] Megestrol Acetate 20 mg PO DAILY 12/10/18 04/13/19 Previous Rx's Medication Instructions Recorded Pantoprazole [Protonix] 40 mg PO BID #60 tab 08/21/18 Potassium Chloride ER [K-Dur 20] 20 meq PO DAILY #3 tab 11/03/19 Allergies Allergy/AdvReac Type Severity Reaction Status Date / Time ibuprofen [From Motrin] AdvReac Unknown Verified 11/03/19 15:51 Mushroom AdvReac Nausea & Verified 11/03/19 15:51 Vomiting Review of Systems ROS Statement: Those systems with pertinent positive or pertinent negative responses have been documented in the HPI. ROS Other: All systems not noted in ROS Statement are negative. Past Medical History Past Medical History: Blood Disorder, Heart Failure, COPD, CVA/TIA, Fibromyalgia, GERD/Reflux, Hypertension, Liver Disease, Osteoarthritis (OA) Additional Past Medical History / Comment(s): Past SHIPMAN'S ESOPHAGUS-surgically removed, past hiatal hernia, chronic back and neck pain, stroke 02/2015, TIA 06/2016 with L arm weakness, chronic bronchitis, sinus problems, hx migraines, hx tooth abscess. PROBLEMS WITH BALANCE AND HX OF FALLS. Anemia. 2 new hernias in abdomen History of Any Multi-Drug Resistant Organisms: None Reported Past Surgical History: Appendectomy, Back Surgery, Bariatric Surgery, Section, Cholecystectomy, Hernia Repair, Joint Replacement, Orthopedic Surgery, Tubal Ligation Additional Past Surgical History / Comment(s): BACK SURGERY X2 (3rd for mid- back/removal of spinal cord stimulator to be performed on 09/04/18), NECK SURGERYX2, including a fusion, had SPINAL CORD STIMULATOR implanted in back (tens unit), cervical fusion, LAP GABRIEL EN Y (11/06/15), EGDs and EGD with dilation and removal of a staple that had migrated, colonoscopy/benign polypectomy, bilateral knee injections. Open heart surgery with valve repla cement, HAD 13 TEETH EXTRACTED. Past Anesthesia/Blood Transfusion Reactions: Motion Sickness, Postoperative Nausea & Vomiting (PONV) Additional Past Anesthesia/Blood Transfusion Reaction / Comment(s): SLOW TO WAKE UP FROM ANESTHESIA. Past Psychological History: Depression Smoking Status: Current every day smoker Past Alcohol Use History: None Reported Past Drug Use History: None Reported - Past Family History Sister(s) Family Medical History: Myocardial Infarction ([place]) Additional Family Medical History / Comment(s): at age 43 of [place]. Mother Family Medical History: Myocardial Infarction ([place]) Additional Family Medical History / Comment(s): Mother at age 62 of [place]. Father Family Medical History: Myocardial Infarction ([place]) Additional Family Medical History / Comment(s): Father in his 40's of a [place]. General Exam Limitations: no limitations General appearance: alert, in no apparent distress, other (Well-nourished, developed well developed female in no acute distress. Presenting vital signs include temperature 98.4F, pulse 90, respirations 16, blood pressure 114/80, pul se ox 100% on room air.) Respiratory exam: Present: normal lung sounds bilaterally. Absent: respiratory distress, wheezes, rales, rhonchi, stridor Cardiovascular Exam: Present: regular rate, normal rhythm, normal heart sounds. Absent: systolic murmur, diastolic murmur, rubs, gallop, clicks GI/Abdominal exam: Present: soft, normal bowel sounds. Absent: distended, tenderness, guarding, rebound, rigid Extremities exam: Present: full ROM, normal capillary refill, pedal edema Left Lower Leg exam: Present: normal inspection (With trace pitting edema) Neurovascular tendon exam: Present: no vascular compromise Right Lower Leg exam: Present: normal inspection (Trace pitting edema) Neurovascular tendon exam: Present: no vascular compromise Neurological exam: Present: alert, oriented X3, CN II-XII intact Psychiatric exam: Present: normal affect, normal mood Course Vital Signs 11/03/19 11/03/19 11/03/19 15:51 16:52 17:26 Temperature 98.4 F 98.0 F Pulse Rate 90 98 99 Respiratory 16 18 18 Rate Blood Pressure 114/80 128/93 134/86 O2 Sat by Pulse 100 97 99 Oximetry Medical Decision Making - Medical Decision Making This is a 59-year-old female who was sent by her primary care doctor for evaluation of hypokalemia. Patient's potassium was 3.1 when checked in the department today. She was given 40 mEq of K-DUR PO now and was prescribed 20 mEq to take on the next 3 subsequent days. EKG was obtained; patient in a normal sinus rhythm with nonspecific ST abnormality and prolonged QT interval. Patient was instructed to follow-up with her primary care provider for further evaluation in 1-2 days. Instructed to return to the emergency room if she develops any dizziness, palpitations, muscle weakness, or other concerning symptoms. Patient verbalizes understanding and agrees with this plan. - Lab Data Result diagrams: 11/03/19 16:40 Lab Results 11/03/19 Range/Units 16:40 Sodium 135 L (137-145) mmol/L Potassium 3.1 L (3.5-5.1) mmol/L Chloride 108 H (98-107) mmol/L Carbon Dioxide 22 (22-30) mmol/L Anion Gap 5 mmol/L BUN 6 L (7-17) mg/dL Creatinine 0.92 (0.52-1.04) mg/dL Est GFR (CKD-EPI)AfAm 80 (>60 ml/min/1.73 sqM) Est GFR (CKD-EPI)NonAf 69 (>60 ml/min/1.73 sqM) Glucose 120 H (74-99) mg/dL Calcium 8.3 L (8.4-10.2) mg/dL Magnesium 2.2 (1.6-2.3) mg/dL - EKG Data EKG shows normal: sinus rhythm EKG Comments: EKG performed at 1645 shows normal sinus rhythm with a a ventricular rate of 97, LA interval 140, QRS duration 88, QT/QTc 402/510. Interpretation shows nonspecific ST abnormality and prolonged QT. Interpretation: nonspecific ST-T wave changes, other (Prolonged QT interval) Disposition Clinical Impression: Hypokalemia Disposition: HOME SELF-CARE Condition: Good Instructions (If sedation given, give patient instructions): Hypokalemia (ED) Additional Instructions: Take medication as directed. Follow-up with your primary care doctor for a recheck in 1-2 days. Return to the ER with any new, worsening, or concerning symptoms. Prescriptions: Potassium Chloride ER [K-Dur 20] 20 meq PO DAILY #3 tab Is patient prescribed a controlled substance at d/c from ED?: No Referrals: Mitch Daniels MD [Primary Care Provider] - 1-2 days Time of Disposition: 17:27
[2019-11-03 16:53] VITALS: RESP 18
[2019-11-03 17:10] LABS: Calcium 8.3 mg/dL (8.4-10.2); Magnesium 2.2 mg/dL (1.6-2.3); Potassium 3.1 mmol/L (3.5-5.1)
[2019-11-03] MEDS ORDERED: POTASSIUM CHLORIDE ER 20 MEQ TAB.ER PO STA (17:21)
[2019-11-03 17:27] VITALS: BP 134/86; PULSE 99; TEMP 98
== END 2019-11-03 17:44 | disposition home or self-care (01) ==
LOC: EC 15:44
DX: E87.6 Hypokalemia (principal); F17.200 Nicotine dependence, unspecified, uncomplicated; F32.9 Major depressive disorder, single episode, unspecified; J44.9 Chronic obstructive pulmonary disease, unspecified; I11.0 Hypertensive heart disease with heart failure; I50.9 Heart failure, unspecified; M19.90 Unspecified osteoarthritis, unspecified site; Z79.51 Long term (current) use of inhaled steroids; Z79.82 Long term (current) use of aspirin; Z79.899 Other long term (current) drug therapy; Z98.1 Arthrodesis status; Z86.69 Personal history of other diseases of the nervous system and sense organs; Z90.49 Acquired absence of other specified parts of digestive tract; Z88.6 Allergy status to analgesic agent; Z91.018 Allergy to other foods
CPT/HCPCS: 36415; 80048; 83735; 93005; 99285

== ENCOUNTER 2019-11-29 07:40 | Day surgery (SDC) | payer MEDICARE ==
[~2019-11-29 07:40] MED LIST changes: +PREMYELOGRAM MEDICATION REVIEW 1 EACH MISC PO ONE; -SODIUM CHLORIDE 0.9% 500 ML 500 ML IV SCH
[2019-11-29] MEDS ORDERED: PREMYELOGRAM MEDICATION REVIEW 1 EACH MISC PO ONE (08:33)
[2019-11-29] MEDS ORDERED: diazePAM 5 MG TAB PO ONE (08:43)
[2019-11-29 09:03] VITALS: TEMP 98.1
[2019-11-29 09:53] VITALS: RESP 16
--- NOTE | 2019-11-29 10:17 | FL ---
EXAMINATION TYPE: FL myelogram 2 or more regions DATE OF EXAM: 11/29/2019 10:05 AM HISTORY: Lower extremity pain and numbness Dr eaton. 1.24 min fl time. ISO M 200/15cc Informed consent was obtained and all the patient's questions were answered. The L3-L4 level was loc alized under fluoroscopy. Standard sterile technique was utilized as well as appropriate local anest hesia 1% Lidocaine. Spinal needle was introduced into the thecal sac under fluoroscopic guidance and 10 mls of Omni 240 was injected. The patient tolerated the procedure well and left the department in stable condition. CT myelography is to follow. IMPRESSION: Successful myelography of the lumbar, thoracic and cervical spines with CT to follow.
--- NOTE | 2019-11-29 10:29 | CT ---
EXAMINATION TYPE: CT lumbar spine w con DATE OF EXAM: 11/29/2019 COMPARISON: none HISTORY: Lumbago CT DLP: 441.0 mGycm Automated exposure control for dose reduction was used. Ct myelography was performed. Bone and soft tissue window settings are submitted as well as coronal and sagittal reconstructions. L1-L2: Normal disc space height. No disc herniation protrusion or central stenosis. No facet joint arthropathy. No evidence for foraminal encroachment. L2-L3: Normal disc space height. No disc herniation protrusion or central stenosis. No facet joint arthropathy. No evidence for foraminal encroachment. L3-L4: There is mild degenerative disc space narrowing with posterior disc bulge broad-based in appea chance. Mild effacement ventral thecal sac. No evidence for disc herniation or central stenosis. Mild bilateral lateral recess stenosis identified. Mild bilateral foraminal encroachment. L4-L5: There is mild degenerative disc space narrowing with posterior disc bulge broad-based in appea chance. Mild effacement ventral thecal sac. No evidence for disc herniation or central stenosis. Mild bilateral lateral recess stenosis identified. Mild bilateral foraminal encroachment. L5-S1: Surgical changes of fusion with screw noted at the L5-S1 level. No evidence for recurrent or r esidual disease. No evidence for central stenosis. Right-sided hemilaminectomy changes noted. IMPRESSION: 1. Postsurgical changes of fusion and hemilaminectomy at L5-S1 without evidence for recurrent or resi dual disease. 2. Posterior disc bulge at L3-4 and L4-5 with mild effacement ventral thecal sac. See above.
--- NOTE | 2019-11-29 10:33 | CT ---
EXAMINATION TYPE: CT cervical spine w con DATE OF EXAM: 11/29/2019 COMPARISON: None HISTORY: Cervicalgia CT DLP: 326.[address] myelography was performed of the cervical spine with bone and soft tissue window settings submitte d. Coronal and sagittal reconstruction is obtained. C2-3: Mild degenerative disc space narrowing with posterior disc bulge. Mild effacement ventral theca l sac. No evidence for herniation or central stenosis. No foraminal encroachment identified. C3-4: Mild to moderate degenerative disc space narrowing. Broad-based posterior disc bulge with effac ement ventral thecal sac. No evidence for cord contact or central stenosis. No foraminal encroachment . C4-5: Moderate degenerative disc space narrowing. Posterocentral subligamentous disc herniation effac es the ventral thecal sac and results in ventral cord contact. There is some mild central stenosis no christine. Moderate degenerative change left-sided cervical apophyseal joints resulting in [id number] left foraminal encroachment at this level. C5-6: Changes of anterior cervical discectomy and fusion. Anterior fixation plate and screws are in p lace. No evidence for recurrent or residual disease. No central stenosis or disc herniation. Foramina are patent. C6-7:Changes of anterior cervical discectomy and fusion. Anterior fixation plate and screws are in pl ana maría. No evidence for recurrent or residual disease. No central stenosis or disc herniation. Foramina are patent. C7-T1: Changes of anterior cervical discectomy and fusion. Anterior fixation plate and screws are in place. No evidence for recurrent or residual disease. No central stenosis or disc herniation. Foramin a are patent. IMPRESSION: 1. Disc herniation and resultant central stenosis and ventral cord contact at L4-5. 2. Changes of anterior cervical discectomy and fusion at C5-C6 through C7-T1 without evidence for rec urrent or residual disease. No malalignment appreciated.
[2019-11-29] MEDS ORDERED: ACETAMINOPHEN TAB 325 MG TAB ONE (10:49)
--- NOTE | 2019-11-29 10:52 | CT ---
EXAMINATION TYPE: CT thoracic spine w con DATE OF EXAM: 11/29/2019 COMPARISON: None HISTORY: Thoracic pain CT DLP: 429.[address] myelography of the thoracic spine was performed with bone and soft tissue window settings submitte d. Bone and soft tissue window settings are submitted as well as coronal and sagittal reconstructions . There is mild scattered generative disc disease with mild posterior disc bulge at T4-5 through T11-T1 2. There is no evidence for disc herniation. No central stenosis is identified. Thoracic spinal cord appears to be of normal caliber. No evidence for paraspinal mass. No fracture or malalignment. Scatte red ventral spondylosis identified. Visualized portions of the lungs demonstrate mild parenchymal sca rring or atelectasis at the left lung base. No paraspinal masses are identified. Lumbar segments are free if fracture. IMPRESSION: 1. Degenerative disc disease and spondylosis without evidence for central stenosis or disc herniation .
[2019-11-29 14:47] VITALS: BP 128/72; PULSE 80
== END 2019-11-29 14:19 | disposition home or self-care (01) ==
LOC: RADPROMAIN 07:40
PROVIDERS: ATTEND Orthopaedic Surgery
DX: M51.26 Other intervertebral disc displacement, lumbar region (principal); M48.061 Spinal stenosis, lumbar region without neurogenic claudication; M50.321 Other cervical disc degeneration at C4-C5 level; Z98.1 Arthrodesis status
CPT/HCPCS: 62305; 72129; 72126; 72132; Q9966

== ENCOUNTER 2019-12-16 06:26 | Day surgery (SDC) | payer MEDICARE ==
[2019-12-15 12:21] VITALS: BMI 24.2
[2019-12-16 06:53] VITALS: TEMP 98
[2019-12-16] MEDS: LACTATED RINGERS 1,000 ML IV SCH ×2 (06:57→07:36)
[2019-12-16] MEDS ORDERED: LIDOCAINE 1% (10MG/ML) FOR IV START INTRADERMA ONE (06:57)
[2019-12-16] MEDS ORDERED: PROPOFOL 10 MG/ML 20 ML VIAL IV ONE (07:37)
[2019-12-16] MEDS ORDERED: LIDOCAINE 1% INJ 10MG/ML (20 ML MDV) ONE (07:37)
--- NOTE | 2019-12-16 07:40 | P.GSHP ---
History of Present Illness H&P Date: 12/16/19 CHIEF COMPLAINT: GERD and colon screen HISTORY OF PRESENT ILLNESS: The patient is a 59-year-old female who presents with gastroesophageal reflux disease and need for colon screen. Upper and lower endoscopy were offered for further evaluation and management. PAST MEDICAL HISTORY: Please see list. PAST SURGICAL HISTORY: Please see list. MEDICATIONS: Please see list. ALLERGIES: Please see list. SOCIAL HISTORY: No illicit drug use FAMILY HISTORY: No reports of Crohn disease or ulcerative colitis. REVIEW OF ORGAN SYSTEMS: CONSTITUTIONAL: No reports of fevers or chills. GI: Denies any blood in stools or constipation. PHYSICAL EXAM: VITAL SIGNS: Stable GENERAL: Well-developed pleasant in no acute distress. HEENT: No scleral icterus. Extraocular movements grossly intact. Moist buccal mucosa. NECK: Supple without lymphadenopathy. CHEST: Unlabored respirations. Equal bilateral excursions. CARDIOVASCULAR: Regular rate and rhythm. Distal 2+ pulses. ABDOMEN: Soft, nondistended. MUSCULOSKELETAL: No clubbing, cyanosis, or edema. ASSESSMENT: 1. Gastroesophageal reflux disease 2. Colon screen. PLAN: 1. Recommend proceeding with an upper and lower endoscopy Past Medical History Past Medical History: Heart Failure, COPD, CVA/TIA, Fibromyalgia, GERD/Reflux, Hearing Disorder / Deafness, Hyperlipidemia, Hypertension, Liver Disease, Memory Impairment, Osteoarthritis (OA) Additional Past Medical History / Comment(s): Hard of hearing left ear. Short term memory loss. Hx SHIPMAN'S ESOPHAGUS-surgically removed, hx hiatal hernia, chronic back and neck pain, hx stroke 02/2015, TIA 06/2016 with L arm weakness, chronic bronchitis, sinus problems, hx migraines, PROBLEMS WITH BALANCE AND HX OF FALLS. Hx Anemia. Fatty liver, frequent UTI's, varicose veins. History of Any Multi-Drug Resistant Organisms: None Reported Past Surgical History: Appendectomy, Back Surgery, Bariatric Surgery, Section, Cholecystectomy, Hernia Repair, Joint Replacement, Orthopedic Surgery, Tubal Ligation Additional Past Surgical History / Comment(s): BACK SURGERY X5 (3rd for mid- back/removal of spinal cord stimulator), cervical fusion, LAP GABRIEL EN Y (11/06/15), EGDs and EGD with dilatation and removal of a staple that had migrated, colonoscopy/benign polypectomy, bilateral knee injections, open heart surgery with valve replacement, all teeth extracted. Past Anesthesia/Blood Transfusion Reactions: Postoperative Nausea & Vomiting (PONV) Additional Past Anesthesia/Blood Transfusion Reaction / Comment(s): SLOW TO WAKE UP FROM ANESTHESIA. Past Psychological History: Anxiety, Depression Smoking Status: Current every day smoker Past Alcohol Use History: None Reported Additional Past Alcohol Use History / Comment(s): Has been smoking approx 35 years, 1 PPD. Past Drug Use History: None Reported - Past Family History Sister(s) Family Medical History: Myocardial Infarction (OR) Additional Family Medical History / Comment(s): at age 43 of [place]. Mother Family Medical History: Myocardial Infarction (OR) Additional Family Medical History / Comment(s): Mother at age 62 of [place]. Father Family Medical History: Myocardial Infarction (OR) Additional Family Medical History / Comment(s): Father in his 40's of a [place]. Medications and Allergies Home Medications Medication Instructions Recorded Confirmed Type Albuterol Nebulized [Ventolin 2.5 mg INHALATION RT-TID 07/07/13 12/16/19 History Nebulized] Venlafaxine HCl [Effexor XR] 150 mg PO BID 01/12/15 12/16/19 History Alive Ultra Potency 1 tab PO DAILY 12/10/17 12/16/19 History Acetaminophen/Diphenhydramine 2 tab PO HS 12/30/17 12/16/19 History [Tylenol PM 500-25mg] Methocarbamol [Robaxin-750] 750 mg PO TID 05/10/18 12/16/19 History Acetaminophen [Tylenol Arthritis] 1,300 mg PO BID 07/29/18 12/16/19 History Pantoprazole [Protonix] 40 mg PO BID #60 tab 08/21/18 12/16/19 Rx Rkndden-Ljov-Gsig [id number] 1 - 2 tab PO Q6H PRN 12/10/18 12/16/19 History [Excedrin] Calcium Carbonate [Calcium] 600 mg PO DAILY 12/10/18 12/16/19 History Cholecalciferol [Vitamin D3 (25 1,000 unit PO DAILY 12/10/18 12/16/19 History Mcg = 1000 Iu)] Cyanocobalamin (Vitamin B-12) 2,000 mcg PO DAILY 12/10/18 12/16/19 History [Vitamin B-12] Albuterol Sulfate [Albuterol 2 puff PO Q6H PRN 11/12/19 12/16/19 History Sulfate Hfa] Buprenorphine HCl/Naloxone HCl 1 tab SUBLINGUAL QID 11/12/19 12/16/19 History [Zubsolv 5.7-1.4 mg Tablet Sl] Diclofenac Sodium Gel [Voltaren 2 gm TOPICAL QID PRN 11/12/19 12/16/19 History Gel] Furosemide [Lasix] 20 mg PO DAILY 11/12/19 12/16/19 History L.acidoph,Paracasei, B.lactis 1 each PO DAILY 11/12/19 12/16/19 History [Probiotic] Lidocaine [Lidoderm 5% Patch] 1 patch TRANSDERM DAILY PRN 11/12/19 12/16/19 History Metoprolol Succinate (ER) [Toprol 50 mg PO QAM 11/12/19 12/16/19 History Xl] Potassium Chloride 10 meq PO Q48H 11/12/19 12/16/19 History Fluticasone/Umeclidin/Vilanter 1 inhalation INHALATION DAILY 11/29/19 12/16/19 History [Trelegy Ellipta 100-62.5-25] Allergies Allergy/AdvReac Type Severity Reaction Status Date / Time ibuprofen [From Motrin] AdvReac Unknown Verified 12/15/19 11:56 Mushroom AdvReac Nausea & Verified 12/15/19 11:56 Vomiting Surgical - Exam Vital Signs Temp Pulse Resp BP Pulse Ox 98.0 F 97 16 147/104 95 12/16/19 06:50 12/16/19 06:50 12/16/19 06:50 12/16/19 06:50 12/16/19 06:50
--- NOTE | 2019-12-16 07:58 | P.PCN ---
Date of Procedure: 12/16/19 Description of Procedure: PREOPERATIVE DIAGNOSIS: Dysphagia Gastroesophageal reflux disease Epigastric abdominal pain POSTOPERATIVE DIAGNOSIS: Esophageal dysmotility Esophageal stricture Gastrojejunal ulcer OPERATION: Esophagogastrojejunoscopy with rigid dilator over the guidewire 51 Fr SURGEON: Rayne Fleming MD ANESTHESIA: MAC. INDICATIONS: The patient is a 59-year-old male who presents with a history of dysphagia including gastroesophageal reflux disease a. Benefits and risks of the procedure were described. Informed consent was obtained. DESCRIPTION: The patient was brought into the endoscopy suite and laid in the left lateral decubitus position. After a timeout was confirmed, the procedure was initiated. An Olympus gastroscope was passed into the gastric pouch. Size of gastric pouch 3 cm. Squamocolumnar junction identified at 39 cm. Diaphragmatic hiatus at 40 cm from the incisors. At the anastomosis, 45 cm from the incisors, chronic gastrojejunal ulcer identified. Next using an Malagasy rigid dilator, a guidewire was placed through the gastroscope. Next the scope was withdrawn. A 51-[place]izen [place] rigid Malagasy dilator was passed carefully along the posterior oropharynx to 50 cm and left in place for 2-3 minutes stretch. The dilator was withdrawn including the guidewire. The scope was reentered along the posterior oropharynx with no findings of full- thickness tear of the upper esophageal sphincter. No full-thickness injury was encountered. The GI tract was desufflated. The patient tolerated the procedure well. FINDINGS: Squamocolumnar junction unremarkable at 39 cm. Distal esophageal stricture without ulceration Malagasy rigid dilator 51[place] completed. Gastric pouch 3 cm. Gastrojejunal ulceration, chronic 3 mm without bleeding RECOMMENDATIONS: Recommend omeprazole 40 mg daily including Carafate for 4 weeks.
--- NOTE | 2019-12-16 08:15 | P.PCN ---
Date of Procedure: 12/16/19 Description of Procedure: PREOPERATIVE DIAGNOSIS: History of colon polyps POSTOPERATIVE DIAGNOSIS: History of colon polyps Diverticulosis, scattered. OPERATION: Colonoscopy to the ascending colon SURGEON: Rayne Fleming MD. ANESTHESIA: MAC. INDICATIONS: The patient is a 59-year-old female who presents for colonoscopy screening. Last colonoscopy 5 years ago. Benefits and risks were described and informed consent was obtained. DESCRIPTION OF PROCEDURE: The patient had undergone Gatorade, MiraLAX and Dulcolax prep. She had been brought into the operating room and laid in the left lateral decubitus position. After adequate intravenous sedation, the rectum was examined with 2% lidocaine jelly. External hemorrhoids were encountered. The rectal tone was within normal limits. No lesions were palpated in the rectal vault. An Olympus colonoscope was advanced to the ascending colon. The prep was fair. Scattered diverticulosis was encountered. No large colonic polyps were found. Random biopsies were obtained for colitis. Retroflexion of the scope demonstrated grade 1 internal hemorrhoids without active bleeding or inflammation. The colon was desufflated. The patient had tolerated the procedure well. Withdrawal time was over 6 minutes. FINDINGS: Aronchick preparation quality scale 2 (1-5) Internal hemorrhoids, grade 1 External prolapsed hemorrhoids, grade 2 No arteriovenous malformations. No adenomatous polyps. Random biopsies for colitis RECOMMENDATIONS: Lower endoscopy in 5 years, 2024 Plan - Discharge Summary Discharge Rx Participant: No New Discharge Prescriptions: Continue Albuterol Nebulized [Ventolin Nebulized] 2.5 mg INHALATION RT-TID Venlafaxine HCl [Effexor XR] 150 mg PO BID Alive Ultra Potency 1 tab PO DAILY Acetaminophen/Diphenhydramine [Tylenol PM 500-25mg] 2 tab PO HS Methocarbamol [Robaxin-750] 750 mg PO TID Acetaminophen [Tylenol Arthritis] 1,300 mg PO BID Pantoprazole [Protonix] 40 mg PO BID #60 tab Calcium Carbonate [Calcium] 600 mg PO DAILY Cholecalciferol [Vitamin D3 (25 Mcg = 1000 Iu)] 1,000 unit PO DAILY Cyanocobalamin (Vitamin B-12) [Vitamin B-12] 2,000 mcg PO DAILY Albuterol Sulfate [Albuterol Sulfate Hfa] 2 puff PO Q6H PRN PRN Reason: Shortness Of Breath Or Wheezing Lidocaine [Lidoderm 5% Patch] 1 patch TRANSDERM DAILY PRN PRN Reason: Pain Diclofenac Sodium Gel [Voltaren Gel] 2 gm TOPICAL QID PRN PRN Reason: Pain Potassium Chloride 10 meq PO Q48H Buprenorphine HCl/Naloxone HCl [Zubsolv 5.7-1.4 mg Tablet Sl] 1 tab SUBLINGUAL QID Metoprolol Succinate (ER) [Toprol XL] 50 mg PO QAM Furosemide [Lasix] 20 mg PO DAILY L.acidoph,Paracasei, B.lactis [Probiotic] 1 each PO DAILY Fluticasone/Umeclidin/Vilanter [Trelegy Ellipta 100-62.5-25] 1 inhalation INHALATION DAILY Discontinued [id number]-[id number]-Nuhh [id number] [Excedrin] 1 - 2 tab PO Q6H PRN PRN Reason: Migraine Headache Discharge Medication List Albuterol Nebulized [Ventolin Nebulized] 2.5 mg INHALATION RT-TID 07/07/13 [History] Venlafaxine HCl [Effexor XR] 150 mg PO BID 01/12/15 [History] Alive Ultra Potency 1 tab PO DAILY 12/10/17 [History] Acetaminophen/Diphenhydramine [Tylenol PM 500-25mg] 2 tab PO HS 12/30/17 [History] Methocarbamol [Robaxin-750] 750 mg PO TID 05/10/18 [History] Acetaminophen [Tylenol Arthritis] 1,300 mg PO BID 07/29/18 [History] Pantoprazole [Protonix] 40 mg PO BID #60 tab 08/21/18 [Rx] Calcium Carbonate [Calcium] 600 mg PO DAILY 12/10/18 [History] Cholecalciferol [Vitamin D3 (25 Mcg = 1000 Iu)] 1,000 unit PO DAILY 12/10/18 [History] Cyanocobalamin (Vitamin B-12) [Vitamin B-12] 2,000 mcg PO DAILY 12/10/18 [History] Albuterol Sulfate [Albuterol Sulfate Hfa] 2 puff PO Q6H PRN 11/12/19 [History] Buprenorphine HCl/Naloxone HCl [Zubsolv 5.7-1.4 mg Tablet Sl] 1 tab SUBLINGUAL QID 11/12/19 [History] Diclofenac Sodium Gel [Voltaren Gel] 2 gm TOPICAL QID PRN 11/12/19 [History] Furosemide [Lasix] 20 mg PO DAILY 11/12/19 [History] L.acidoph,Paracasei, B.lactis [Probiotic] 1 each PO DAILY 11/12/19 [History] Lidocaine [Lidoderm 5% Patch] 1 patch TRANSDERM DAILY PRN 11/12/19 [History] Metoprolol Succinate (ER) [Toprol XL] 50 mg PO QAM 11/12/19 [History] Potassium Chloride 10 meq PO Q48H 11/12/19 [History] Fluticasone/Umeclidin/Vilanter [Trelegy Ellipta 100-62.5-25] 1 inhalation INHALATION DAILY 11/29/19 [History] [facility]Ref[facility] [facility] [place] [facility] [place] [facility] Patient Instructions/Handouts: *Sur[facility] - (Anesthesia) Endoscopy Discharge Instructions, Peptic Ulcer (DC), Esophageal Dilation (DC) Activity/Diet/Wound Care/Special Instructions: Discontinue aspirin including ibuprofen, Aleve, naproxen products of gastric ulcer Discharge Disposition: HOME SELF-CARE
[2019-12-16 08:17] VITALS: PULSE 79
[2019-12-16 08:32] VITALS: BP 156/88; RESP 16
== END 2019-12-16 08:55 | disposition home or self-care (01) ==
LOC: ORWHC2ENDO 06:26
PROVIDERS: ATTEND Surgery Plastic and Reconstructive Surgery
DX: Z12.11 Encounter for screening for malignant neoplasm of colon (principal); K57.30 Diverticulosis of large intestine without perforation or abscess without bleeding; K64.0 First degree hemorrhoids; K64.4 Residual hemorrhoidal skin tags; K64.8 Other hemorrhoids; Z86.010 Personal history of colon polyps; K22.4 Dyskinesia of esophagus; K22.2 Esophageal obstruction; K28.7 Chronic gastrojejunal ulcer without hemorrhage or perforation; K21.9 Gastro-esophageal reflux disease without esophagitis; I11.0 Hypertensive heart disease with heart failure; I50.9 Heart failure, unspecified; J44.9 Chronic obstructive pulmonary disease, unspecified; M79.7 Fibromyalgia; E78.5 Hyperlipidemia, unspecified; K76.0 Fatty (change of) liver, not elsewhere classified; M19.90 Unspecified osteoarthritis, unspecified site; H91.92 Unspecified hearing loss, left ear; R41.3 Other amnesia; G89.29 Other chronic pain; M54.9 Dorsalgia, unspecified; M54.2 Cervicalgia; I69.334 Monoplegia of upper limb following cerebral infarction affecting left non-dominant side; G43.909 Migraine, unspecified, not intractable, without status migrainosus; R26.9 Unspecified abnormalities of gait and mobility; I83.90 Asymptomatic varicose veins of unspecified lower extremity; K08.109 Complete loss of teeth, unspecified cause, unspecified class; F41.9 Anxiety disorder, unspecified; F32.9 Major depressive disorder, single episode, unspecified; F17.210 Nicotine dependence, cigarettes, uncomplicated; Z91.018 Allergy to other foods; Z88.6 Allergy status to analgesic agent; Z90.49 Acquired absence of other specified parts of digestive tract; Z87.19 Personal history of other diseases of the digestive system; Z87.09 Personal history of other diseases of the respiratory system; Z91.81 History of falling; Z86.2 Personal history of diseases of the blood and blood-forming organs and certain disorders involving the immune mechanism; Z87.440 Personal history of urinary (tract) infections; Z98.890 Other specified postprocedural states; Z98.84 Bariatric surgery status; Z96.60 Presence of unspecified orthopedic joint implant; Z98.51 Tubal ligation status; Z98.1 Arthrodesis status; Z95.2 Presence of prosthetic heart valve; Z91.89 Other specified personal risk factors, not elsewhere classified; Z79.899 Other long term (current) drug therapy; Z79.1 Long term (current) use of non-steroidal anti-inflammatories (NSAID); Z79.51 Long term (current) use of inhaled steroids; Z97.2 Presence of dental prosthetic device (complete) (partial); Z82.49 Family history of ischemic heart disease and other diseases of the circulatory system
CPT/HCPCS: 88305; 45380; 43248; J2001; J2704; 43249

== ENCOUNTER 2020-01-11 11:10 | Day surgery (SDC) | payer MEDICARE ==
[2020-01-07 16:02] VITALS: BMI 25.0
[2020-01-11] MEDS ORDERED: LACTATED RINGERS 1,000 ML IV ONE (11:35)
[2020-01-11 11:37] VITALS: RESP 16; TEMP 97
[2020-01-11] MEDS ORDERED: fentaNYL (PF) 50 MCG/ML 2 ML AMP ONE (11:52)
[2020-01-11] MEDS ORDERED: DEXAMETHASONE SOD PHOSPHATE 10 MG/ML 1 ML VIAL ONE (11:52)
[2020-01-11] MEDS ORDERED: MIDAZOLAM 2 MG/2 ML VIAL ONE (11:52)
[2020-01-11] MEDS ORDERED: IOPAMIDOL M200 10 ML VIAL ONE (11:52)
[2020-01-11] MEDS ORDERED: SODIUM CHLORIDE 0.9% (PF) 10 ML VIAL ONE (11:52)
--- NOTE | 2020-01-11 12:08 | P.PCN ---
Date of Procedure: 01/11/20 Description of Procedure: Diagnosis: Cervical radiculopathy Cervical degenerative disc disease POSTOPERATIVE DIAGNOSIS: Diagnoses: Cervical radiculopathy Cervical degenerative disc disease PROCEDURE Cervical Epidural steroid injection under fluoroscopic guidance at the C6-7 interspace using left paramedian approach Cervical epidurogram ANESTHESIA: Local with 1% lidocaine 3 ml . 11 min sedatino time Fluoroscopy was used for the procedure and images were saved in the radiology portion of the chart. EBL: Minimal PROCEDURE INDICATION: The patient presents with cervical radicular symptoms unresponsive to conservative treatment. This is the first cervical epidural steroid injection. PROCEDURE DESCRIPTION / TECHNIQUE: The patient was seen and identified in the preoperative area. Risks, benefits, complications including but not limited to infections ,bleeding ,allergic reaction to the medications ,nerve damage and incomplete pain relief, and alternatives were discussed with the patient. The patient agreed to proceed with the procedure and signed the consent. IV was started, and vital signs were stable. Patient was taken to the OR and time out was completed. The patient was placed in the prone position on procedure table and a pillow was placed under the chest area. The cervical area was prepped and draped in the usual sterile fashion. Conscious sedation was used during the procedure to decrease patients anxiety. Vital signs was monitored during the entire procedure. Using anterior-posterior fluoroscopy, the C6-C7 interlaminar space was identified and the skin over this site was marked and then infiltrated with 1% lidocaine subcutaneously. Subsequently, a 20-gauge Tuohy epidural needle was inserted and advanced toward the epidural space using the loss of resistance technique and guided by AP and 50 oblique fluoroscopy. The correct needle position in the epidural space was verified. After negative aspiration for blood and CSF and in the absence of paresthesias, Isovue 200 2 mL's was injected under live fluoroscopy with good epidural spread. After negative aspiration, a 5 ml mixture containing 10 mg of dexamethasone, 4 mL of preservative free normal saline was injected. Needle was withdrawn intact, skin was cleansed, and bandages were applied. COMPLICATIONS: None DISPOSITION / PLANS: The patient was placed in a supine position and transferred to the recovery area in a stable condition for observation. There was no evidence of lower extremity motor or sensory deficit after the procedure. Patient was discharged from the recovery room after meeting discharge criteria. Home discharge instructions were given to the patient by the staff. The patient will be scheduled a repeat procedure in the clinic in 2-4 weeks.
--- NOTE | 2020-01-11 12:19 | FL ---
Fluoroscopy INDICATION: Pain FINDINGS: Fluoroscopy time: 24 seconds. Images obtained: 2. IMPRESSIONS: 1. Documentation of fluoroscopy.
[2020-01-11 12:27] VITALS: BP 146/89; PULSE 65
[2020-01-11] MEDS ORDERED: IV FLUID CONTINUATION 1,000 ML IV ONE (12:30)
== END 2020-01-11 12:41 | disposition home or self-care (01) ==
LOC: ORPAIN 11:10
PROVIDERS: ATTEND Anesthesiology
DX: M50.10 Cervical disc disorder with radiculopathy, unspecified cervical region (principal); Z91.018 Allergy to other foods; Z90.710 Acquired absence of both cervix and uterus
CPT/HCPCS: 62321; J2250; J1100; J3010; Q9966; 99152

== ENCOUNTER → 2020-01-12 | Outpatient (CLI) | payer MEDICARE ==
[2020-01-12 13:19] VITALS: BP 145/91; PULSE 94; RESP 16; TEMP 98.6; BMI 25.8
--- NOTE | 2020-01-12 13:49 | P.PN ---
Subjective Progress Note Date: 01/12/20 DATE OF SERVICE: 01/12/2020 CHIEF COMPLAINT: Status post gastric bypass HISTORY OF PRESENT ILLNESS: Kassy Lopez is a 59-year-old female status post gastric bypass on 11/06/2015. She is 4 years out. She has gained 50+ pounds in 1 year after eating saltines crackers. She still has nausea. She denies any new medications in the last 6 months. She denies abdominal pain. She reports occasional gas bloat. Her ideal body weight for 5 foot 6 inch frame is 154 pound. Her highest weight was 278 pounds, BMI 45.0. Today she comes in weighing 160 pounds from 154 pounds, 2 months ago. She has gained 6 pounds in 2 months. She has lost 118 pounds lifetime. Body mass index is reduced from 45.0 down to 25.8. Her percent excess weight loss is 95 %. PHYSICAL EXAM: VITAL SIGNS: 5 foot 6, 160 pounds. Body mass is 25.8 Vital Signs Temp 98.6 F 01/12/20 13:17 Pulse 94 01/12/20 13:17 Resp 16 01/12/20 13:17 BP 145/91 01/12/20 13:17 Pulse Ox ABDOMEN: Soft, nontender, nondistended. No hernia MUSCULOSKELETAL: No clubbing, cyanosis, or edema. GENERAL: Well-developed female in no acute distress. CARDIOVASCULAR: 2+ distal pulses. HEENT: Head atraumatic, normocephalic. No nasal drainage. Hears is conversational speech. CHEST: Nonlabored respirations. Equal bilateral excursions. NECK: Supple without lymphadenopathy. NEURO: No focal or lateralizing signs. Cranial nerves II through XII grossly intact. PSYCH: Appropriate affect. Alert and oriented to person, place and time. SKIN: Well perfused. Good skin turgor. ASSESSMENT: 1. Morbid obesity and excess calories. 2. Body mass index reduced from 45.0 down to 25.8 3. Status post gastric bypass. 4. Restless leg syndrome. 5. Obstructive sleep apnea, resolved. 6. Secondary hyperparathyroidism. 7. Thiamine deficiency, resolved. 8. Hypertriglyceridemia. 9. Prior history of active tobacco use, now in remission. 10. Sdp-giltpei-xrxlqizfo type 2 diabetes, resolved. 11. Diabetic gastroparesis. 12. History of gout. 13. History of Hernandez's esophagus. 14. Chronic obstructive pulmonary disease. 15. Vitamin D deficiency, resolved 16. Hyperlipidemia. 17. Congestive heart failure from hypertension. 18. Iron deficiency anemia. 19. Vitamin A deficiency. 20. Hypertensive heart disease, resolved. 21. Status post valvular replacement. 22. Secondary hyperparathyroidism 23. Small bowel obstruction, resolved 24. Malabsorption, resolved 25. Diarrhea PLAN: 1. Recommend abran for nausea. 2. Zofran prescribed for nausea. 3. Medical reconcilliaton performed. Objective - Vital Signs Vital signs: Vital Signs Temp 98.6 F 01/12/20 13:17 Pulse 94 01/12/20 13:17 Resp 16 01/12/20 13:17 BP 145/91 01/12/20 13:17 Pulse Ox Intake & Output 01/11/20 01/12/20 01/12/20 18:59 06:59 18:59 Weight 72.575 kg
== END | disposition home or self-care (01) ==
LOC: BARWHC3 13:00
PROVIDERS: ATTEND Surgery Plastic and Reconstructive Surgery
DX: Z48.815 Encounter for surgical aftercare following surgery on the digestive system (principal); E66.01 Morbid (severe) obesity due to excess calories; G25.81 Restless legs syndrome; E21.1 Secondary hyperparathyroidism, not elsewhere classified; E78.1 Pure hyperglyceridemia; E11.43 Type 2 diabetes mellitus with diabetic autonomic (poly)neuropathy; K31.84 Gastroparesis; J44.9 Chronic obstructive pulmonary disease, unspecified; E78.5 Hyperlipidemia, unspecified; I11.0 Hypertensive heart disease with heart failure; I50.9 Heart failure, unspecified; D50.9 Iron deficiency anemia, unspecified; E50.9 Vitamin A deficiency, unspecified; R19.7 Diarrhea, unspecified; Z68.25 Body mass index [BMI] 25.0-25.9, adult; Z98.84 Bariatric surgery status; Z72.0 Tobacco use; Z87.39 Personal history of other diseases of the musculoskeletal system and connective tissue; Z95.4 Presence of other heart-valve replacement; Z87.19 Personal history of other diseases of the digestive system
CPT/HCPCS: 99211

== ENCOUNTER → 2020-02-07 | Outpatient (CLI) | payer MEDICARE ==
[2020-02-07 11:39] VITALS: BP 137/98; PULSE 99; RESP 18; TEMP 99.1
--- NOTE | 2020-02-07 12:05 | P.PN ---
Subjective Progress Note Date: 02/07/20 This is a 59-year-old lady with history of neck pain with radiation to the upper extremities down to the hands with numbness and tingling in both arms. The patient had 2 cervical spinal fusions previously. She also complains of headache which starts in the occipital area and radiates to the whole head. The pain of her headache is steady not pulsatile. She denies any history of migraine. This headache gets worse by bright lights and occasionally associated with nausea and vomiting. The patient used to have spinal cord stimulator for lower back pain but it has been removed due to lack of benefits. Patient denies new-onset weakness, bowel/bladder incontinence, or any other signs or symptoms of cauda equina syndrome. There are no signs of acute intoxication, and no indications of medication diversion or overuse. In addition to above, 13-point review of systems is also negative for chest pain, shortness of breath, changes in vision, changes in hearing, new onset weakness, abdominal pain, diarrhea, extreme fatigue, malaise, fever, skin changes, homicidal or suicidal ideation, or bowel or bladder incontinence. Vital Signs: Reviewed in EMR Gen: AAOx3, NAD HEENT: PERRLA,hearing grossly normal Pulm: resp unlabored Neck: supple, trachea midline Neuro exam of the upper extremities: Normal muscle strength bilaterally and symmetrically Straight leg raising test: Claude's test: Range of motion of the lumbar spine: Facet loading test: Tenderness in the paravertebral musculature: Positive tenderness in the cervical paravertebral musculature and the trapezius muscles bilaterally. Neuro: CN II-XII grossly intact, Imaging: Reviewed in EMR/chart Assessment: Cervical post fusion pain syndrome Cervical spondylosis without myelopathy Cervical radiculopathy Cervical degenerative disc disease Probable cervicogenic headache Plan: 1. Explanation: Opioid and psychological risk scores were reviewed. Diagnoses, prognoses, and multiple treatment options including but not limited to physical therapy, interventional therapies, adjuvant medical therapies, narcotic medication therapies, and surgery were discussed with the patient and all questions were answered to the patient's satisfaction. 2. Opioid agreement: Signed with the patient and the patient is warned not to use opioids while driving or before driving and not to combine opioids with benzodiazepines or alcohol. 3. Counseling: The patient was counseled extensively on SMOKING CESSATION, BODY MASS INDEX, EXERCISE. Specifically, the patient was instructed regarding the importance of smoking cessation, obesity, and exercise in the context of both chronic pain and overall health. 4. Procedures: The patient may benefit from cervical epidural steroid injection 5. Consultations: None 6. Investigations: refer for an EMG on the upper extremities bilaterally due to increasing numbness and tingling in the arms. 7. Medications: None for now 8. Disposition: Return to clinic in 4 weeks 9. Maps were reviewed and were appropriate. Objective - Vital Signs Vital signs: Vital Signs Temp 99.1 F 02/07/20 11:32 Pulse 99 02/07/20 11:32 Resp 18 02/07/20 11:32 BP 137/98 02/07/20 11:32 Pulse Ox 96 02/07/20 11:32
== END | disposition home or self-care (01) ==
LOC: PNWHC3 11:24
PROVIDERS: ATTEND Anesthesiology
DX: M50.10 Cervical disc disorder with radiculopathy, unspecified cervical region (principal); M47.22 Other spondylosis with radiculopathy, cervical region; M96.1 Postlaminectomy syndrome, not elsewhere classified
CPT/HCPCS: 99211

== ENCOUNTER → 2020-02-28 | Outpatient (CLI) | payer MEDICARE ==
[2020-02-28 16:05] LABS: HCT 38.6 % (34.0-46.0); HGB 12.5 gm/dL (11.4-16.0); MCH 28.6 pg (25.0-35.0); MCHC 32.5 g/dL (31.0-37.0); MCV 88.1 fL (80.0-100.0); Mean Platelet Volume 7.8; Platelet Count 216 k/uL (150-450); RBC 4.38 m/uL (3.80-5.40); RDW 14.9 % (11.5-15.5)
[2020-02-28 16:12] LABS: African American GFR (CKD) >90 (>60 ml/min/1.73 sqM); Anion Gap 4 mmol/L; Blood Urea Nitrogen 7 mg/dL (7-17); Carbon Dioxide 25 mmol/L (22-30); Chloride 107 mmol/L (98-107); Non-African American GFR(CKD) 82 (>60 ml/min/1.73 sqM); Potassium 4.1 mmol/L (3.5-5.1); Sodium 136 mmol/L (137-145)
[2020-02-28 16:18] LABS: Prothrombin Time 10.7 sec (9.0-12.0)
== END | disposition home or self-care (01) ==
LOC: LABPAT 15:44
PROVIDERS: ATTEND Orthopaedic Surgery
DX: Z01.812 Encounter for preprocedural laboratory examination (principal)
CPT/HCPCS: 80051; 82565; 84520; 85027; 85610; 87070

== ENCOUNTER 2020-03-13 13:36 | Observation (INO) | payer MEDICARE ==
[2020-03-03 14:22] VITALS: BMI 25.0
--- NOTE | 2020-03-12 12:12 | HP ---
HISTORY AND PHYSICAL REASON FOR ADMISSION: Surgery scheduled 03/13/2020 HISTORY OF PRESENT ILLNESS: Kassy Lopez is a 59-year-old patient seen with symptomatic right knee osteoarthritis. We discussed options for treatment. She elected to proceed with right total knee arthroplasty. Consent regarding the procedure was obtained. Medical clearance was provided by Dr. Daniels. PAST MEDICAL HISTORY: Hypertension, COPD. PAST SURGICAL HISTORY: Noncontributory. MEDICATIONS: Albuterol, gabapentin, Protonix, Spiriva, Symbicort, Acetaminophen. ALLERGIES: IBUPROFEN. SOCIAL HISTORY: Smokes 1 pack of cigarettes daily. PHYSICAL EXAMINATION: Evaluation of the right knee: Range of motion is -3 to 115. Tenderness medial joint line. Crepitus along the medial patellofemoral compartments with range of motion. Pain with patellofemoral compression. Ligaments stable. Hip rotation without pain. Distal neurovascular exam is intact. RADIOGRAPHS: Radiographs of the right knee reveal severe osteoarthritic changes. IMPRESSION: 1. Right knee osteoarthritis. 2. Chronic obstructive pulmonary disease. PLAN: Right total knee arthroplasty. Surgery 03/13/2020. MMODL / IJN: [id number] /
[~2020-03-13 13:36] MED LIST changes: +ACETAMINOPHEN TAB 500 MG TAB PO PRN; +HYDROmorphone 0.5 MG/0.5 ML SYRINGE IVP PRN; +LIDOCAINE 1% (10MG/ML) FOR IV START INTRADERMA PRN; +MELOXICAM 7.5 MG TAB PO PRN; -PREMYELOGRAM MEDICATION REVIEW 1 EACH MISC PO ONE; +ROPIVACAINE/EPI/CLONIDINE/KET 50 ML SYRINGE MISCELLANE PRN; +TRANEXAMIC ACID 1,000 MG in SODIUM CHLORIDE 0.9% 100 ML IVPB PRN
[2020-03-13] MEDS ORDERED: ONDANSETRON 4 MG/2 ML VIAL ONE (14:08)
[2020-03-13 14:31] LABS: Glucose,Whole Blood 101 mg/dL (75-99)
[2020-03-13] MEDS: LACTATED RINGERS 1,000 ML IV SCH ×2 (14:31→20:18)
[2020-03-13] MEDS ORDERED: DEXAMETHASONE SOD PHOSPHATE 4 MG/ML 1 ML VIAL IV ONE (14:34)
[2020-03-13] MEDS ORDERED: SCOPOLAMINE 1.5MG/72HR PATCH TRANSDERM ONE (14:40)
[2020-03-13] MEDS ORDERED: fentaNYL (PF) 50 MCG/ML 2 ML AMP IV ONE (14:49)
[2020-03-13] MEDS ORDERED: MIDAZOLAM 2 MG/2 ML VIAL IV ONE (14:49)
--- NOTE | 2020-03-13 15:24 | P.ANPRN ---
Procedure Note - Anesthesia - Nerve Block Performed Right Adductor Canal Infusion Time Out Performed: Yes Date of Procedure: 03/13/20 Procedure Start Time: 14:47 Procedure Stop Time: 14:57 Location of Patient: Phase I Indication: Acute Post-Operative Pain, Dx/Pain Location (Right Knee Pain), Requested by Surgeon Sedation Type: Sedate with meaningful contact maintained Preparation: Sterile Prep Position: Supine Catheter: Indwelling Needle Types: Pajunk Needle Gauge: 21 Ultrasound used to visualize needle placement: Yes Ultrasound used to observe medication spread: Yes Injectate: 0.5% Ropivacaine (see comment for volume) (20ml) Blood Aspirated: No Pain Paresthesia on Injection Noted: No Resistance on Injection: Normal Image Stored and Saved: Yes Events: Uneventful and Well Tolerated
[2020-03-13] MEDS ORDERED: LIDOCAINE 1% INJ 10MG/ML (20 ML MDV) ONE (15:38)
[2020-03-13] MEDS ORDERED: TRANEXAMIC ACID 1,000 MG/10 ML VIAL ONE (15:38)
[2020-03-13] MEDS ORDERED: SODIUM CHLORIDE 0.9% 100 ML BAG ONE (15:38)
[2020-03-13] MEDS ORDERED: MIDAZOLAM 2 MG/2 ML VIAL ONE (15:38)
[2020-03-13] MEDS ORDERED: fentaNYL (PF) 50 MCG/ML 2 ML AMP ONE (15:38)
[2020-03-13] MEDS ORDERED: PROPOFOL 10 MG/ML 20 ML VIAL IV ONE (15:38)
[2020-03-13] MEDS ORDERED: ceFAZolin 1,000 MG in SODIUM CHLORIDE 0.9% 1,000 ML IRRIGATION ONE (16:13)
[2020-03-13] MEDS ORDERED: LACTATED RINGERS 1,000 ML IV ONE (17:10)
[2020-03-13] MEDS ORDERED: Acetaminophen-Codeine 300-30mg TAB PO PRN (17:36)
[2020-03-13] MEDS ORDERED: HYDROmorphone 0.2 MG/1 ML SYRINGE IVP PRN (17:36)
[2020-03-13] MEDS ORDERED: ONDANSETRON 4 MG/2 ML VIAL IVP PRN (17:36)
[2020-03-13] MEDS ORDERED: NALOXONE 0.4 MG/ML 1 ML VIAL IV PRN (17:36)
[2020-03-13] MEDS ORDERED: HYDROmorphone 0.5 MG/0.5 ML SYRINGE IVP PRN (17:36)
--- NOTE | 2020-03-13 17:36 | P.OP ---
Date of Procedure: 03/13/20 Preoperative Diagnosis: Right knee osteoarthritis Postoperative Diagnosis: Right knee osteoarthritis Procedure(s) Performed: Right total knee arthroplasty Implants: 1. Depuy attune size 6 right cruciate retaining cemented femur 2. Depuy attune size 6 fixed bearing cemented tibial baseplate 3. Depuy attune size 6 fixed bearing cruciate retaining 7 mm polyethylene tibial insert 4. Depuy attune all polyethylene 38 mm cemented patella Anesthesia: regional (Adductor canal catheter), local, spinal Surgeon: Vishal Davis Feather Sawyer #1: Daniel Huggins Estimated Blood Loss (ml): 45 Pathology: other (Bone) Condition: stable Disposition: PACU Indications for Procedure: 59-year-old patient seen with symptomatic right knee osteoarthritis. After having treatment options discussed, she elected to proceed with total knee a rthroplasty. Operative Findings: See description of procedure Description of Procedure: Patient was taken to the operative suite after having an adductor canal catheter placed by the department of anesthesia. Patient underwent a spinal anesthetic by the department of anesthesia. Patient was given preoperative IV intake antibiotics and TXA. A well-padded tourniquet was placed about the right lower extremity. The lower extremity was then prepped and draped in the normal sterile orthopedic fashion. The extremity was elevated, a tourniquet was insufflated to 300. A standard anterior incision was made sharply through skin. Dissection was taken down through the subcutaneous soft tissues down to the extensor mechanism. A medial arthrotomy was performed, patella was everted and knee was flexed. There was advanced osteoarthritis noted. I introduced my distal intramedullary femoral drill. I then introduced the distal femoral cutting jig. Juan MISHRA secured the cutting jig with 2 pins. I held retractors in position while Juan MISHRA performed the distal femoral resection through the guide area we now removed her distal femoral cutting guide. We now placed our 4-in-1 femoral cutting block and positioned and it was secured with 2 pins by Juan MISHRA while I held the block in position. The distal femoral finishing was now completed. A proximal tibial cutting guide was positioned. I held the guide in the appropriate position with both hands well Juan MISHRA inserted stabilizing pins into the guide. Proximal tibial cut was made. We now placed a trial femoral component into position, along with an appropriate size tibial tray and insert. We now took the knee through range of motion and had full extension good flexion and good overall soft tissue balance noted. The patella was everted and stabilized with 2 towel clips held by Juan MISHRA while I performed a flush with patellar quad tendon utilizing a fresh sawblade. We templated the patella, appropriate drill holes were made. An appropriate trial patella was positioned, knee was taken through full range of motion with the patella tracking very nicely. The trial patella was removed. Drill holes were made through the femoral component. All trial components were removed after marking off the appropriate rotation of the tibia. Retractors were now positioned along the proximal tibia. An appropriate keel punch was made with the appropriate size tibial guide by myself on Juan MISHRA assisted by holding retractors. At this point appropriate size implants were chosen and opened. The joint was irrigated copiously with pulse lavage mechanical irrigation. The posterior capsule was infiltrated with local analgesic. The wound was irrigated with pulse lavage mechanical irrigation. We mixed antibiotic methylmethacrylate. We placed the knee into flexion. We placed multiple retractors assisted by Juan MISHRA to expose the proximal tibia. Once the methyl methacrylate was ready, the tibial component was cemented into place removing any excess methylmethacrylate form by both myself and Juan MISHRA. The femoral component was cemented into place removing the removing any excess methylmethacrylate performed by both myself and Juan MISHRA. We then inserted the appropriate size polyethylene tibial insert. We made sure that it was locked into position. We took the knee into full extension, and then back in a flexion making sure we had removed any excess methylmethacrylate. The patellar component was then cemented down and secured with clamp. Excess methylmethacrylate removed. We kept the knee in full extension, patellar clamp in position until methylmethacrylate had hardened. Once it had hardened the pat ellar clamp was removed. The knee was taken through full range of motion. The patella tracked nicely. There was good soft tissue balancing. The tourniquet was now released. Additional hemostasis was achieved via electrocautery. A second gram of TXA was given. The wound again was irrigated with pulse lavage mechanical irrigation. The superficial soft tissues were infiltrated local analgesic. The extensor mechanism was repaired with Vicryl. We checked the repair with range of motion and it was stable. The subcutaneous soft tissues were repaired with Vicryl in layers. The skin was approximated with pernio/Dermabond. Sterile dressings were applied followed by loose web roll and Maynor bandage. The patient was transferred to a bed, and taken to recovery in stable and satisfactory condition. Juan MISHRA assisted with this complex procedure.
[2020-03-13] MEDS ORDERED: ROPIVACAINE 0.2%-NS ON-Q PUMP 1,090 MG, EMPTY PAIN BALL 1 EACH MISCELLANE PRN (17:55)
--- NOTE | 2020-03-13 18:30 | XR ---
EXAMINATION TYPE: XR knee limited RT DATE OF EXAM: 03/13/2020 COMPARISON: NONE HISTORY: Postop knee surgery TECHNIQUE: 2 views FINDINGS: There is right knee prosthesis. Components appear in anatomic position. IMPRESSION: No complicating process seen.
[2020-03-13] MEDS: SENNOSIDES-DOCUSATE SODIUM 1 EACH TAB PO SCH (20:18)
[2020-03-13] MEDS: HYDROmorphone 1 MG/ML 1 ML SYRINGE IVP PRN (20:18)
[2020-03-13 22:28] VITALS: RESP 18
[2020-03-14] MEDS: LACTATED RINGERS 1,000 ML IV SCH ×3 (01:38→16:54)
[2020-03-14] MEDS: HYDROmorphone 1 MG/ML 1 ML SYRINGE IVP PRN ×5 (01:40→19:31)
[2020-03-14] MEDS: ENOXAPARIN 30 MG/0.3 ML SYRINGE SQ SCH ×2 (04:55→16:44)
[2020-03-14] MEDS: Acetaminophen-Codeine 300-30mg TAB PO PRN ×4 (04:57→18:10)
--- NOTE | 2020-03-14 06:43 | P.PN ---
Progress Note - Text Progress Note Date: 03/14/20 59 yo female s/p Right TKA post op day 1 with adductor catheter day #2. VAS 4- 5/10 in severity, site is clean, dry, intact. No motor/sensory deficits. ambulating and tolerating diet.
[2020-03-14 06:51] LABS: Basophils % (A) 0 %; Eosinophils % (A) 0 %; HCT 33.8 % (34.0-46.0); HGB 11.1 gm/dL (11.4-16.0); Lymphocytes # (A) 2.1 k/uL (1.0-4.8); Lymphocytes % (A) 15 %; MCH 28.9 pg (25.0-35.0); MCHC 32.8 g/dL (31.0-37.0); MCV 88.1 fL (80.0-100.0); Mean Platelet Volume 8.3; Monocytes # (A) 0.9 k/uL (0-1.0); Monocytes % (A) 6 %; Neutrophils # (A) 10.6 k/uL (1.3-7.7); Neutrophils % (A) 77 %; Platelet Count 182 k/uL (150-450); RBC 3.83 m/uL (3.80-5.40); RDW 15.2 % (11.5-15.5); WBC 13.7 k/uL (3.8-10.6)
[2020-03-14 10:05] LABS: African American GFR (CKD) 82 (>60 ml/min/1.73 sqM); Anion Gap 2 mmol/L; Blood Urea Nitrogen 10 mg/dL (7-17); Calcium 8.1 mg/dL (8.4-10.2); Carbon Dioxide 25 mmol/L (22-30); Chloride 108 mmol/L (98-107); Glucose 82 mg/dL (74-99); Magnesium 1.9 mg/dL (1.6-2.3); Non-African American GFR(CKD) 71 (>60 ml/min/1.73 sqM); Potassium 3.9 mmol/L (3.5-5.1); Sodium 135 mmol/L (137-145)
[2020-03-14] MEDS: METOPROLOL SUCCINATE (ER) 50 MG TAB.ER.24H PO SCH (10:06)
[2020-03-14] MEDS: VENLAFAXINE HCL ER 150 MG CAP PO SCH ×2 (10:06→19:32)
--- NOTE | 2020-03-14 10:56 | XR ---
EXAMINATION TYPE: XR chest 2V DATE OF EXAM: 03/14/2020 COMPARISON: Chest x-ray 02/16/2020 HISTORY: Shortness of breath TECHNIQUE: Frontal and lateral views of the chest are obtained. FINDINGS: Patient is post median sternotomy and left atrial appendage clipping placement, mitral valv e replacement and there are postop changes in the cervical spine, overlying artifacts There is no foc al air space opacity, pleural effusion, or pneumothorax seen. The cardiac silhouette size is stable. Some thickening of the major fissure is noted on the lateral exam, the aorta is dense The osseous s tructures are intact. IMPRESSION: No acute cardiopulmonary process. Some thickening of the fissure on the lateral exam is noted.
--- NOTE | 2020-03-14 11:18 | P.PN ---
Subjective Progress Note Date: 03/14/20 Principal diagnosis: Status post right total knee arthroplasty patient is examined today at bedside, she is resting in her hospital bed. She has a having increasing pain noted today. She is only taking Tylenol 3 at this time. She has a history of narcotic addiction, this has been discussed with both Dr. Davis and her primary care physician. She is utilizing the Dilaudi d as needed. She is willing to work with physical therapy. She currently denies any headaches, lightheadedness, chest pain or shortness of breath. Objective - Vital Signs Vital signs: Vital Signs Temp 99.8 F H 03/14/20 09:23 Pulse 87 03/14/20 07:26 Resp 18 03/14/20 07:26 BP 145/88 03/14/20 07:26 Pulse Ox 97 03/14/20 07:26 Intake & Output 03/13/20 03/14/20 03/14/20 18:59 06:59 18:59 Intake Total 1651 Output Total 45 Balance 1606 Weight 69.9 kg 69.9 kg Intake: IV 1651 Output: Estimated Blood Loss 45 Other: Voiding Method Toilet Toilet # Voids 2 - Exam Right lower extremity: Incision is clean, dry, and intact. The foam dressing is in good condition. There is minimal soft tissue swelling and ecchymosis surrounding the medial and lateral aspects of the incision. Calf is soft, no tenderness with palpation. Plantar flexion, dorsiflexion, EHL, FHL are intact. Sensory exam to light touch throughout the extremity is intact, dorsal pedis pulses 2+. - Labs CBC & Chem 7: 03/14/20 05:48 03/14/20 06:46 Labs: Abnormal Lab Results - Last 24 Hours (Table) 03/13/20 03/14/20 03/14/20 Range/Units 14:25 05:48 06:46 WBC 13.7 H (3.8-10.6) k/uL Hgb 11.1 L (11.4-16.0) gm/dL Hct 33.8 L (34.0-46.0) % Neutrophils # 10.6 H (1.3-7.7) k/uL Sodium 135 L (137-145) mmol/L Chloride 108 H (98-107) mmol/L POC Glucose (mg/dL) 101 H (75-99) mg/dL Calcium 8.1 L (8.4-10.2) mg/dL Assessment and Plan Assessment: status post right total knee arthroplasty Plan: Pain control, continue use of Tylenol 3 DVT prophylaxis, continue subcu medication during inpatient stay. Likely utilize aspirin 81 mg twice a day at discharge Icing and elevating techniques were discussed Continue to work with physical therapy Encourage incentive spirometer Medical recommendations Depending on pain control, possible discharge home today Time with Patient: Less than 30
--- NOTE | 2020-03-14 11:53 | P.CONS ---
History of Present Illness - Reason for Consult Fever - History of Present Illness 3.-year-old female admitted for elective right knee arthroplasty underwent surgery patient is complaining of severe pain and spasms in the right knee. She does have leukocytosis had a low-grade fever, as per the patient, her temperature was checked after eating something hot. A repeat showed 99.8. Patient was comparing of cough but there is a smoker and used to smoke denied any dysuria. Chest x-ray was obtained urine analysis is pending. Patient is on magnesium supplementation because of which I ordered magnesium level which is within normal limits. Review of Systems REVIEW OF SYSTEMS: CONSTITUTIONAL: No fever, no malaise, no fatigue. HEENT: No recent visual problems or hearing problems. Denied any sore throat. CARDIOVASCULAR: No chest pain, orthopnea, PND, no palpitations, no syncope. PULMONARY: No shortness of breath, no cough, no hemoptysis. GASTROINTESTINAL: No diarrhea, no nausea, no vomiting, no abdominal pain. NEUROLOGICAL: No headaches, no weakness, no numbness. HEMATOLOGICAL: Denies any bleeding or petechiae. GENITOURINARY: Denies any burning micturition, frequency, or urgency. MUSCULOSKELETAL/RHEUMATOLOGICAL: As mentioned in HPI ENDOCRINE: Denies any polyuria or polydipsia. The rest of the 14-point review of systems is negative. Past Medical History Past Medical History: COPD, CVA/TIA, Fibromyalgia, GERD/Reflux, Hearing Disorder / Deafness, Hyperlipidemia, Hypertension, Liver Disease, Memory Impairment, O steoarthritis (OA) Additional Past Medical History / Comment(s): Hard of hearing left ear. Short term memory loss. Hernandez's esophagus - surgically removed, hx hiatal hernia, chronic back and neck pain, hx stroke 02/2015, TIA 06/2016 with L arm weakness, chronic bronchitis, sinus problems, hx migraines, problems with balance and falls. Hx Anemia. Fatty liver, frequent UTI's, varicose veins. History of Any Multi-Drug Resistant Organisms: None Reported Past Surgical History: Appendectomy, Back Surgery, Bariatric Surgery, Bladder Surgery, Cardiac Valve Replacement, Section, Cholecystectomy, Hernia Repair, Joint Replacement, Tubal Ligation Additional Past Surgical History / Comment(s): BACK SURGERY X6 (3rd for mid- back/removal of spinal cord stimulator), cervical fusion, LAP GABRIEL EN Y ( 11/06/15), EGDs and EGD with dilatation and removal of a staple that had migrated, colonoscopy/benign polypectomy, bilateral knee injections, open heart surgery with valve replacement, all teeth extracted, laparotomy & lysis of adhesions Past Anesthesia/Blood Transfusion Reactions: Postoperative Nausea & Vomiting (PONV) Additional Past Anesthesia/Blood Transfusion Reaction / Comm: Slow to wake up from anesthesia Past Psychological History: Anxiety, Depression Smoking Status: Current every day smoker Past Alcohol Use History: None Reported Additional Past Alcohol Use History / Comment(s): Has been smoking approx 35 years, 1 PPD. Past Drug Use History: None Reported - Past Family History Sister(s) Family Medical History: Myocardial Infarction (NM) Additional Family Medical History / Comment(s): at age 43 of NM. Mother Family Medical History: Myocardial Infarction (NM) Additional Family Medical History / Comment(s): Mother at age 62 of NM. Father Family Medical History: Myocardial Infarction (NM) Additional Family Medical History / Comment(s): Father in his 40's of a NM. Medications and Allergies Home Medications Medication Instructions Recorded Confirmed Type Albuterol Nebulized [Ventolin 2.5 mg INHALATION BID 07/07/13 03/13/20 History Nebulized] Venlafaxine HCl [Effexor XR] 150 mg PO BID 01/12/15 03/13/20 History Alive Ultra Potency 2 tab PO DAILY 12/10/17 03/13/20 History Acetaminophen/Diphenhydramine 2 tab PO HS 12/30/17 03/13/20 History [Tylenol PM 500-25mg] Methocarbamol [Robaxin-750] 750 mg PO TID 05/10/18 03/13/20 History Pantoprazole [Protonix] 40 mg PO BID #60 tab 08/21/18 03/13/20 Rx Calcium Carbonate [Calcium] 1,200 mg PO DAILY 12/10/18 03/13/20 History Cholecalciferol [Vitamin D3 (25 250 mg PO DAILY 12/10/18 03/13/20 History Mcg = 1000 Iu)] Cyanocobalamin (Vitamin B-12) 2,000 mcg PO DAILY 12/10/18 03/13/20 History [Vitamin B-12] Albuterol Sulfate [Albuterol 2 puff PO Q6H PRN 11/12/19 03/13/20 History Sulfate Hfa] Buprenorphine HCl/Naloxone HCl 1 tab SUBLINGUAL QID 11/12/19 03/13/20 History [Zubsolv 5.7-1.4 mg Tablet Sl] Diclofenac Sodium Gel [Voltaren 2 gm TOPICAL QID PRN 11/12/19 03/13/20 History Gel] Furosemide [Lasix] 20 mg PO DAILY 11/12/19 03/13/20 History L.acidoph,Paracasei, B.lactis 3 each PO DAILY 11/12/19 03/13/20 History [Probiotic] Lidocaine [Lidoderm 5% Patch] 1 patch TRANSDERM DAILY 11/12/19 03/13/20 History Metoprolol Succinate (ER) [Toprol 50 mg PO QAM 11/12/19 03/13/20 History XL] Potassium Chloride 10 meq PO Q48H 11/12/19 03/13/20 History Ondansetron Odt [Zofran ODT] 4 mg PO Q8HR PRN #30 tab 01/12/20 03/13/20 Rx Cranberry Fruit Extract [Cranberry] 1,000 mg PO DAILY 01/13/20 03/13/20 History Magnesium 500 mg PO DAILY 01/13/20 03/13/20 History Acetaminophen [Tylenol Arthritis] 1,300 mg PO BID 03/03/20 03/13/20 History Fluticasone/Umeclidin/Vilanter 1 puff INHALATION DAILY 03/03/20 03/13/20 History [Trelegy Ellipta 200-62.5-25] Acetaminophen-Codeine 300-30mg 1 tab PO TID PRN 03/13/20 03/13/20 History [Tylenol w/codeine #3] Allergies Allergy/AdvReac Type Severity Reaction Status Date / Time aspirin Allergy has ulcer Verified 03/13/20 14:20 temazepam [From Restoril] Allergy nightmares Verified 03/13/20 14:20 ibuprofen [From Motrin] AdvReac Unknown Verified 03/13/20 14:20 Mushroom AdvReac Nausea & Verified 03/13/20 14:20 Vomiting Physical Exam Vitals: Vital Signs Temp Pulse Resp BP Pulse Ox 03/14/20 09:23 99.8 F H 03/14/20 07:26 100.4 F H 87 18 145/88 97 03/14/20 02:00 98.3 F 92 18 133/81 98 03/13/20 21:45 88 134/85 96 03/13/20 21:30 98 133/84 97 03/13/20 21:15 103 H 146/92 03/13/20 21:00 91 141/91 98 03/13/20 20:45 86 125/83 96 03/13/20 20:30 87 143/86 95 03/13/20 20:15 87 142/93 93 L 03/13/20 19:45 81 142/90 96 03/13/20 19:30 80 147/91 94 L 03/13/20 19:15 98.8 F 80 18 141/76 95 03/13/20 18:36 84 16 145/79 94 L 03/13/20 18:21 82 16 143/80 95 03/13/20 18:06 83 16 145/81 94 L 03/13/20 17:50 97.9 F 86 16 147/87 96 03/13/20 14:58 85 18 135/78 100 03/13/20 14:32 97 F L 89 18 123/84 96 Intake and Output 03/13/20 03/14/20 03/14/20 22:59 06:59 14:59 Intake Total 1551 Output Total 45 Balance 1506 Intake: IV 1551 Output: Estimated Blood Loss 45 Other: Voiding Method Toilet Toilet # Voids 2 Weight 69.9 kg PHYSICAL EXAMINATION: GENERAL: The patient is alert and oriented x3, not in any acute distress. Well developed, well nourished. HEENT: Pupils are round and equally reacting to light. EOMI. No scleral icterus. No conjunctival pallor. Normocephalic, atraumatic. No pharyngeal erythema. No thyromegaly. CARDIOVASCULAR: S1 and S2 present. No murmurs, rubs, or gallops. PULMONARY: Chest is clear to auscultation, no wheezing or crackles. ABDOMEN: Soft, nontender, nondistended, normoactive bowel sounds. No palpable organomegaly. MUSCULOSKELETAL: She does site area with his right knee appears to be clean without any infection EXTREMITIES: No cyanosis, clubbing, or pedal edema. NEUROLOGICAL: Gross neurological examination did not reveal any focal deficits. SKIN: No rashes. Results CBC & Chem 7: 03/14/20 05:48 03/14/20 06:46 Labs: Abnormal Lab Results - Last 24 Hours (Table) 03/13/20 03/14/20 03/14/20 Range/Units 14:25 05:48 06:46 WBC 13.7 H (3.8-10.6) k/uL Hgb 11.1 L (11.4-16.0) gm/dL Hct 33.8 L (34.0-46.0) % Neutrophils # 10.6 H (1.3-7.7) k/uL Sodium 135 L (137-145) mmol/L Chloride 108 H (98-107) mmol/L POC Glucose (mg/dL) 101 H (75-99) mg/dL Calcium 8.1 L (8.4-10.2) mg/dL Assessment and Plan Plan: -Episode of fever: There is so far no evidence of infection will just monitor chest x-ray within normal limits pending urine analysis. If she has more episodes of fever then she will need empiric antibiotics and further workup at that time. -Leukocytosis reactive secondary to surgery -COPD without any acute exacerbation nicotine cessation counseling was provided -Provided -Hypertension -Hyperlipidemia -Gastroesophageal reflux disease with Hernandez's esophagus and hiatal hernia -Depression -History of opiate abuse in the past and 15 patient is on Suboxone which will be continued For above-mentioned chronic medical problems patient was resumed on appropriate home medications Right knee arthroplasty: Patient is on DVT prophylaxis with Lovenox 30 subcutaneous every 12 hourly
[2020-03-14] MEDS: IPRATROPIUM 0.5 MG/2.5 ML NEBU INHALATION SCH ×3 (12:00→21:23)
[2020-03-14 13:04] LABS: Appearance,Urine Clear (Clear); Bilirubin,Urine Negative (Negative); Blood,Urine Negative (Negative); Color,Urine Colorless; Glucose,Urine (UA) Negative (Negative); Ketones,Urine Negative (Negative); Leukocyte Esterase,Urine Negative (Negative); Nitrite,Urine Negative (Negative); PH, Urine 5.5 (5.0-8.0); Protein,Urine Negative (Negative); Specific Gravity,Urine 1.007 (1.001-1.035); Urobilinogen,Urine <2.0 mg/dL (<2.0)
[2020-03-14] MEDS: [UNRECOGNIZED DRUG - OTHER] SUBLINGUAL SCH ×3 (14:08→21:34)
[2020-03-14] MEDS: BUPRENORPHINE HCL SUBLINGUAL SCH ×3 (14:08→21:34)
[2020-03-14] MEDS: NALOXONE HCL SUBLINGUAL SCH ×3 (14:08→21:34)
[2020-03-14] MEDS: PANTOPRAZOLE 40 MG TABLET PO SCH (16:44)
[2020-03-14] MEDS ORDERED: HYDROcodone/APAP 5-325MG 1 EACH TAB PO PRN (18:49)
[2020-03-14] MEDS: SENNOSIDES-DOCUSATE SODIUM 1 EACH TAB PO SCH (19:32)
[2020-03-14] MEDS ORDERED: ZOLPIDEM 5 MG TAB PO PRN (20:05)
[2020-03-14] MEDS: SYMBICORT 80-4.5 MCG INHALER INHALATION SCH (21:24)
[2020-03-14] MEDS: ALBUTEROL NEBULIZED 2.5 MG/3 ML INHALATION SCH (21:24)
[2020-03-15] MEDS: HYDROmorphone 1 MG/ML 1 ML SYRINGE IVP PRN ×4 (00:12→11:29)
[2020-03-15] MEDS: LACTATED RINGERS 1,000 ML IV SCH ×3 (01:27→07:48)
[2020-03-15] MEDS: Acetaminophen-Codeine 300-30mg TAB PO PRN ×3 (02:15→12:28)
[2020-03-15] MEDS: ENOXAPARIN 30 MG/0.3 ML SYRINGE SQ SCH (04:37)
[2020-03-15 07:01] LABS: HCT 31.9 % (34.0-46.0); HGB 10.8 gm/dL (11.4-16.0); MCH 29.4 pg (25.0-35.0); MCHC 33.7 g/dL (31.0-37.0); MCV 87.3 fL (80.0-100.0); Mean Platelet Volume 8.8; Platelet Count 151 k/uL (150-450); RBC 3.66 m/uL (3.80-5.40); RDW 15.1 % (11.5-15.5); WBC 12.4 k/uL (3.8-10.6)
[2020-03-15 07:35] VITALS: TEMP 98.3
[2020-03-15] MEDS: ALBUTEROL NEBULIZED 2.5 MG/3 ML INHALATION SCH (07:43)
[2020-03-15] MEDS: IPRATROPIUM 0.5 MG/2.5 ML NEBU INHALATION SCH ×2 (07:43→11:17)
[2020-03-15] MEDS: SYMBICORT 80-4.5 MCG INHALER INHALATION SCH (07:44)
[2020-03-15] MEDS: VENLAFAXINE HCL ER 150 MG CAP PO SCH (07:47)
[2020-03-15] MEDS: PANTOPRAZOLE 40 MG TABLET PO SCH (07:47)
[2020-03-15] MEDS: METOPROLOL SUCCINATE (ER) 50 MG TAB.ER.24H PO SCH (07:47)
[2020-03-15] MEDS: [UNRECOGNIZED DRUG - OTHER] SUBLINGUAL SCH (07:48)
[2020-03-15] MEDS: NALOXONE HCL SUBLINGUAL SCH (07:48)
[2020-03-15] MEDS: BUPRENORPHINE HCL SUBLINGUAL SCH (07:48)
[2020-03-15] MEDS ORDERED: MULTIVITAMINS, THERA 1 EACH TAB PO SCH (09:00)
[2020-03-15] MEDS ORDERED: MAGNESIUM OXIDE 400 MG TAB PO SCH (09:00)
[2020-03-15] MEDS ORDERED: CALCIUM CARBONATE 500 MG CHEWABLE PO SCH (09:00)
[2020-03-15 10:26] LABS: African American GFR (CKD) 110.7 (60.0-200.0); BUN/Creat Ratio 12.86 Ratio (12.00-20.00); Calcium 8.3 mg/dL (8.7-10.3); Non-African American GFR(CKD) 95.5 (60.0-200.0); Potassium 3.6 mmol/L (3.5-5.5)
[2020-03-15] MEDS ORDERED: FUROSEMIDE 20 MG TAB PO SCH (11:15)
[2020-03-15 11:29] VITALS: PULSE 92
--- NOTE | 2020-03-15 11:47 | P.PN ---
Subjective Progress Note Date: 03/15/20 Principal diagnosis: Status post right total knee arthroplasty patient is examined today at bedside, she is resting in her hospital bed. Patient did have a relatively yesterday pain control, she did end up taking some Damon for the discomfort. She's also used allotted occasionally. She is continuing to do very well with physical therapy.. She currently denies any headaches, lightheadedness, chest pain or shortness of breath. Objective - Vital Signs Vital signs: Vital Signs Temp 98.3 F 03/15/20 07:34 Pulse 92 03/15/20 11:28 Resp 18 03/15/20 07:34 BP 175/106 03/15/20 07:34 Pulse Ox 96 03/15/20 07:34 Intake & Output 03/14/20 03/15/20 03/15/20 18:59 06:59 18:59 Output Total 1400 Balance -1400 Output: Urine 1400 Other: Voiding Method Toilet Toilet # Voids 4 3 # Bowel Movements 1 1 - Exam Right lower extremity: Incision is clean, dry, and intact. The foam dressing is in good condition. There is minimal soft tissue swelling and ecchymosis surrounding the medial and lateral aspects of the incision. Calf is soft, no tenderness with palpation. Plantar flexion, dorsiflexion, EHL, FHL are intact. Sensory exam to light touch throughout the extremity is intact, dorsal pedis pulses 2+. - Labs CBC & Chem 7: 03/15/20 05:55 03/15/20 05:55 Labs: Abnormal Lab Results - Last 24 Hours (Table) 03/15/20 03/15/20 Range/Units 05:55 05:55 WBC 12.4 H (3.8-10.6) k/uL RBC 3.66 L (3.80-5.40) m/uL Hgb 10.8 L (11.4-16.0) gm/dL Hct 31.9 L (34.0-46.0) % Glucose 117 H (70-110) mg/dL Calcium 8.3 L (8.7-10.3) mg/dL Assessment and Plan Assessment: status post right total knee arthroplasty Plan: Pain control, continue use of Tylenol 3. Patient does take an opiate alternative medication at home for her previous addiction problem. She will plan he utilizes after discharge. She also had Tylenol 3 available as needed. I discussed the patient that she may take one of those medications for both. DVT prophylaxis, patient has a history of a gastric ulcer. We will utilize Lovenox 40 mg daily for the next 12 days from discharge Icing and elevating techniques were discussed Continue to work with physical therapy Encourage incentive spirometer Medical recommendations Plan for discharge home today Time with Patient: Less than 30
--- NOTE | 2020-03-15 11:50 | P.DS ---
Providers Date of admission: 03/13/2020 Expected date of discharge: 03/15/20 Attending physician: Vishal Davis Primary care physician: Frances Meyer Hospital Course: Date of admission: 03/13/2020 Date of discharge: 03/15/2020 Admission diagnosis: Status post right total knee arthroplasty Discharge diagnosis: Same Attending physician: Dr. Davis Surgical procedures: Right total knee arthroplasty Brief history: Patient is a 59-year-old female with a history of progressive primary right knee osteoarthritis. At this point patient has failed conservative treatment measures and has opted to proceed with a elective right total knee arthroplasty. Hospital course: Details of patient's surgery can be found in operative report. Patient tolerated the procedure well and was subsequently transported to orthopedic floor. Patient's orthopeidc and medical care was provided daily. Patient had daily laboratory tests performed for evaluation of overall blood counts. Patient had daily physical therapy to include strengthening range of motion as well as education with walker ambulation. Patient was treated with Lovenox for their postoperative DVT prophylaxis during their inpatient stay. Patient was noted to have a relatively uneventful postoperative course. Patient reported satisfactory pain control with oral pain medications by postoperative day 0. Patient showed satisfactory progress with physical therapy. Patient moved steadily through the program and had no difficulty meeting the goals by postoperative day 2. Given patient's otherwise satisfactory course and having met physical therapy goals, plan is to discharge patient home on postoperative day 2. Discharge condition/disposition: Patient will be discharged home in stable condition. Discharge medications: Instructions are given on resumption of patient's normal daily medications per primary care recommendation, in addition patient will be prescribed Tylenol No. 3, Lovenox 40 mg. Discharge instructions: 1. Wound care and infection precautions, keep incision dry and covered while showering, no lotions, creams, moisturizers. No soaking, tubs, pools, hottubs. Do not scrub over the incision. 2. Weight-bear as tolerated with walker / cane until follow-up. 3. Ice and elevate when necessary. Do not exceed 20 minutes per hour with ice pack. 4. Utilize compression sleeve until seen at first follow up appointment. 5. Visiting nursing care. 6. Home physical therapy. 7. Pain meds and anticoagulants per prescription. 8. Pain medication has potential to cause constipation. Increase oral fluid and fiber intake. Contact primary care provider if you have not had a bowel movement within 48 hours after discharge 9. No anti-inflammatory medication until discussed at first post operative visit, this including Motrin, Aleve, Mobic, Diclofenac. 10. Follow up in office at 2 weeks postop with Juan Huggins PA-C 11. Follow up with your primary care doctor 7-10 days after discharge. 12. Contact [facility] with any questions, . Wound care instructions: 1. Okay to remove the foam dressing on 03/20/2020 2. After removal of the foam dressing may shower directly over the incision Procedures: Right total knee arthroplasty Patient Condition at Discharge: Good Plan - Discharge Summary Discharge Rx Participant: No New Discharge Prescriptions: New Enoxaparin [Lovenox] 40 mg SQ DAILY #12 syringe Acetaminophen-Codeine 300-30mg [Tylenol w/codeine #3] 1 - 2 tab PO Q6H PRN 3 Days #42 tablet PRN Reason: Pain Continue Albuterol Nebulized [Ventolin Nebulized] 2.5 mg INHALATION BID Venlafaxine HCl [Effexor XR] 150 mg PO BID Alive Ultra Potency 2 tab PO DAILY Pantoprazole [Protonix] 40 mg PO BID #60 tab Calcium Carbonate [Calcium] 1,200 mg PO DAILY Cholecalciferol [Vitamin D3 (25 Mcg = 1000 Iu)] 250 mg PO DAILY Cyanocobalamin (Vitamin B-12) [Vitamin B-12] 2,000 mcg PO DAILY Albuterol Sulfate [Albuterol Sulfate Hfa] 2 puff PO Q6H PRN PRN Reason: Shortness Of Breath Or Wheezing Lidocaine [Lidoderm 5% Patch] 1 patch TRANSDERM DAILY Diclofenac Sodium Gel [Voltaren Gel] 2 gm TOPICAL QID PRN PRN Reason: Pain Potassium Chloride 10 meq PO Q48H Buprenorphine HCl/Naloxone HCl [Zubsolv 5.7-1.4 mg Tablet Sl] 1 tab SUBLINGUA L QID Metoprolol Succinate (ER) [Toprol XL] 50 mg PO QAM Furosemide [Lasix] 20 mg PO DAILY L.acidoph,Paracasei, B.lactis [Probiotic] 3 each PO DAILY Ondansetron Odt [Zofran ODT] 4 mg PO Q8HR PRN #30 tab PRN Reason: Nausea Magnesium 500 mg PO DAILY Cranberry Fruit Extract [Cranberry] 1,000 mg PO DAILY Fluticasone/Umeclidin/Vilanter [Trelegy Ellipta 200-62.5-25] 1 puff INHA LATION DAILY Acetaminophen-Codeine 300-30mg [Tylenol w/codeine #3] 1 tab PO TID PRN PRN Reason: Pain Discontinued Acetaminophen/Diphenhydramine [Tylenol PM 500-25mg] 2 tab PO HS Methocarbamol [Robaxin-750] 750 mg PO TID Acetaminophen [Tylenol Arthritis] 1,300 mg PO BID Discharge Medication List Albuterol Nebulized [Ventolin Nebulized] 2.5 mg INHALATION BID 07/07/13 [History] Venlafaxine HCl [Effexor XR] 150 mg PO BID 01/12/15 [History] Alive Ultra Potency 2 tab PO DAILY 12/10/17 [History] Pantoprazole [Protonix] 40 mg PO BID #60 tab 08/21/18 [Rx] Calcium Carbonate [Calcium] 1,200 mg PO DAILY 12/10/18 [History] Cholecalciferol [Vitamin D3 (25 Mcg = 1000 Iu)] 250 mg PO DAILY 12/10/18 [History] Cyanocobalamin (Vitamin B-12) [Vitamin B-12] 2,000 mcg PO DAILY 12/10/18 [History] Albuterol Sulfate [Albuterol Sulfate Hfa] 2 puff PO Q6H PRN 11/12/19 [History] Buprenorphine HCl/Naloxone HCl [Zubsolv 5.7-1.4 mg Tablet Sl] 1 tab SUBLINGUAL QID 11/12/19 [History] Diclofenac Sodium Gel [Voltaren Gel] 2 gm TOPICAL QID PRN 11/12/19 [History] Furosemide [Lasix] 20 mg PO DAILY 11/12/19 [History] L.acidoph,Paracasei, B.lactis [Probiotic] 3 each PO DAILY 11/12/19 [History] Lidocaine [Lidoderm 5% Patch] 1 patch TRANSDERM DAILY 11/12/19 [History] Metoprolol Succinate (ER) [Toprol XL] 50 mg PO QAM 11/12/19 [History] Potassium Chloride 10 meq PO Q48H 11/12/19 [History] Ondansetron Odt [Zofran ODT] 4 mg PO Q8HR PRN #30 tab 01/12/20 [Rx] Cranberry Fruit Extract [Cranberry] 1,000 mg PO DAILY 01/13/20 [History] Magnesium 500 mg PO DAILY 01/13/20 [History] Fluticasone/Umeclidin/Vilanter [Trelegy Ellipta 200-62.5-25] 1 puff INHALATION DAILY 03/03/20 [History] Acetaminophen-Codeine 300-30mg [Tylenol w/codeine #3] 1 tab PO TID PRN 03/13/20 [History] Acetaminophen-Codeine 300-30mg [Tylenol w/codeine #3] 1 - 2 tab PO Q6H PRN 3 Days #42 tablet 03/15/20 [Rx] Enoxaparin [Lovenox] 40 mg SQ DAILY #12 syringe 03/15/20 [Rx] Follow up Appointment(s)/Referral(s): Mitch Daniels MD [Primary Care Provider] - 1 Week Vishal Davis DO [Doctor of Osteopathic Medicine] - 03/31/20 2:30 pm [facility], [NON-STAFF] - Patient Instructions/Handouts: *Sur[facility] - ([facility]) Arthroscopic Knee Post-Op Instructions, *Surgery [facility] - On-Q Pain Pump Discharge Instructions, Enoxaparin (By injection) Activity/Diet/Wound Care/Special Instructions: Orthopedic Discharge Instructions: 1. Wound care and infection precautions, keep incision dry and covered while showering, no lotions, creams, moisturizers. No soaking, pools, hot tubs. Do not scrub over incision. 2. Weight-bear as tolerated with walker / cane until follow-up. 3. Ice and elevate when necessary. Do not exceed 20 minutes per hour with ice pack. 4. Utilize compression sleeve until seen at first follow up appointment. 5. Pain meds and anticoagulants per prescription. 6. Pain medication has potential to cause constipation. Increase oral fluid and fiber intake. Contact primary care provider if you have not had a bowel movement within 48 hours after discharge. 7. No anti-inflammatory medication until discussed at first post operative visit, this including Motrin, Aleve, Mobic, Diclofenac 8. Follow up in office at 2 weeks postop with Juan Huggins PA-C 9. Follow up with your primary care doctor 7-10 days after discharge. 10. Contact [facility] with any questions, . Wound care instructions: 1. Okay to remove foam dressing on 03/20/2020 2. Okay to shower over the incision after removal of the bone dressing Follow up with primary care provider upon discharge Continue current diet Discharge Disposition: HOME WITH HOME HEALTH SERVICES
[2020-03-15 14:42] VITALS: BP 165/102
--- NOTE | 2020-03-15 15:09 | P.PN ---
Subjective Progress Note Date: 03/15/20 - Reason for Consult Fever - History of Present Illness 59-year-old female admitted for elective right knee arthroplasty underwent surgery patient is complaining of severe pain and spasms in the right knee. She does have leukocytosis had a low-grade fever, as per the patient, her temperature was checked after eating something hot. A repeat showed 99.8. Patient was comparing of cough but there is a smoker and used to smoke denied any dysuria. Chest x-ray was obtained urine analysis is pending. Patient is on magnesium supplementation because of which I ordered magnesium level which is within normal limits. 03/15/2020 Patient is seen and evaluated status post right knee arthroplasty and is being closely monitored. Patient had mild leukocytosis and a low-grade fever although patient has been afebrile overnight. Urinalysis is negative. Chest x-ray was also showing no acute cardiopulmonary process. Patient was seen this morning working with physical therapy and able to tolerate stairs and walk up and down the hallway. Patient will be going home with home care in the outpatient setting. White blood count is 12.4, sodium is 137, potassium is 3.6, current creatinine is 0.7. Patient does take magnesium supplements and repeat magnesium level was 1.9. Medications have been resumed. Review of systems: Constitutional: No reports of fatigue, fever, or chills Cardiovascular: No reports of chest pain or palpitations Respiratory: No reports of shortness of breath or cough GI: No reports of nausea, vomiting, or diarrhea : No reports of dysuria or retention Neurovascular: Reports mild weakness no reports of numbness, generalized postop surgical pain of the right knee with pain pump noted on exam All medications have been reviewed Objective - Vital Signs Vital signs: Vital Signs Temp 98.3 F 03/15/20 07:34 Pulse 92 03/15/20 11:28 Resp 18 03/15/20 07:34 BP 175/106 03/15/20 07:34 Pulse Ox 96 03/15/20 07:34 Intake & Output 03/14/20 03/15/20 03/15/20 18:59 06:59 18:59 Output Total 1400 Balance -1400 Output: Urine 1400 Other: Voiding Method Toilet Toilet # Voids 4 3 # Bowel Movements 1 1 - Exam GENERAL: The patient is alert and oriented x3, not in any acute distress. Well developed, well nourished. HEENT: Pupils are round and equally reacting to light. EOMI. No scleral icterus. No conjunctival pallor. Normocephalic, atraumatic. No pharyngeal erythema. No thyromegaly. CARDIOVASCULAR: S1 and S2 present. No murmurs, rubs, or gallops. PULMONARY: Chest is clear to auscultation, no wheezing or crackles. ABDOMEN: Soft, nontender, nondistended, normoactive bowel sounds. No palpable organomegaly. MUSCULOSKELETAL: Surgical site area of right knee appears to be clean without any infection or surrounding redness and swelling EXTREMITIES: No cyanosis, clubbing, or pedal edema. NEUROLOGICAL: Gross neurological examination did not reveal any focal deficits. SKIN: No rashes. - Labs CBC & Chem 7: 03/15/20 05:55 03/15/20 05:55 Labs: Abnormal Lab Results - Last 24 Hours (Table) 03/15/20 03/15/20 Range/Units 05:55 05:55 WBC 12.4 H (3.8-10.6) k/uL RBC 3.66 L (3.80-5.40) m/uL Hgb 10.8 L (11.4-16.0) gm/dL Hct 31.9 L (34.0-46.0) % Glucose 117 H (70-110) mg/dL Calcium 8.3 L (8.7-10.3) mg/dL Assessment and Plan Assessment: -Episode of fever: There is so far no evidence of infection continue to monitor. chest x-ray within normal limits and urinalysis is negative. Patient now remains afebrile. -Leukocytosis reactive secondary to surgery, trending down -Right knee arthroplasty: Patient is on DVT prophylaxis with Lovenox 30 subcutaneous every 12 hourly -COPD without any acute exacerbation nicotine cessation counseling was provided -fibromyalgia -CVA/TIA -Hypertension -Hyperlipidemia -Gastroesophageal reflux disease with Hernandez's esophagus and hiatal hernia -Depression -History of opiate abuse in the past and patient is on Suboxone which will be continued Plan: Continue with current medications and pain management per primary service. Home medications have been resumed. Patient does have an incentive spirometer and instructed to use at least 10 times every hour while awake. Also instructed to follow-up with primary care provider in the outpatient setting. Patient will continue with home care upon discharge. Will continue to follow with orthopedic surgery during hospitalization. Patient states she is being discharged today.
== END 2020-03-15 13:20 | disposition home health service (06) ==
LOC: OR 13:36 → 4SSUR 17:48 → OR 03-14 10:50 → 4SSUR 03-14 10:50
PROVIDERS: ADMIT Orthopaedic Surgery; ATTEND Orthopaedic Surgery
DX: M17.11 Unilateral primary osteoarthritis, right knee (principal); R50.82 Postprocedural fever; D72.829 Elevated white blood cell count, unspecified; I10 Essential (primary) hypertension; J44.9 Chronic obstructive pulmonary disease, unspecified; F17.210 Nicotine dependence, cigarettes, uncomplicated; F11.20 Opioid dependence, uncomplicated; E11.9 Type 2 diabetes mellitus without complications; K21.9 Gastro-esophageal reflux disease without esophagitis; M48.00 Spinal stenosis, site unspecified; G43.909 Migraine, unspecified, not intractable, without status migrainosus; G89.29 Other chronic pain; M54.2 Cervicalgia; M54.9 Dorsalgia, unspecified; K76.0 Fatty (change of) liver, not elsewhere classified; I83.90 Asymptomatic varicose veins of unspecified lower extremity; H91.92 Unspecified hearing loss, left ear; R41.3 Other amnesia; E78.5 Hyperlipidemia, unspecified; M79.7 Fibromyalgia; K44.9 Diaphragmatic hernia without obstruction or gangrene; F32.9 Major depressive disorder, single episode, unspecified; F41.9 Anxiety disorder, unspecified; Z79.1 Long term (current) use of non-steroidal anti-inflammatories (NSAID); Z79.891 Long term (current) use of opiate analgesic; Z79.51 Long term (current) use of inhaled steroids; Z79.899 Other long term (current) drug therapy; Z88.6 Allergy status to analgesic agent; Z88.8 Allergy status to other drugs, medicaments and biological substances; Z91.018 Allergy to other foods; Z90.49 Acquired absence of other specified parts of digestive tract; Z86.73 Personal history of transient ischemic attack (TIA), and cerebral infarction without residual deficits; Z98.891 History of uterine scar from previous surgery; Z95.2 Presence of prosthetic heart valve; Z98.84 Bariatric surgery status; Z87.440 Personal history of urinary (tract) infections; Z86.2 Personal history of diseases of the blood and blood-forming organs and certain disorders involving the immune mechanism; Z98.1 Arthrodesis status; Z86.010 Personal history of colon polyps; Z98.51 Tubal ligation status; Z87.11 Personal history of peptic ulcer disease; Z98.890 Other specified postprocedural states; Z82.49 Family history of ischemic heart disease and other diseases of the circulatory system
CPT/HCPCS: 94640 ×4; 97116; 97161; 64448; 76942; 80048 ×2; 83735; 85025; 85027; 81003; 88300; 73560; 71046; 27447; G0378 ×2; C1776; C1713; J2250; J1100; J0690 ×3; J2405; J2001; J3010; J1650 ×2; J1170 ×3; J2704; J2795

== ENCOUNTER → 2020-03-31 | Outpatient (CLI) | payer MEDICARE ==
--- NOTE | 2020-04-01 07:34 | US ---
EXAMINATION TYPE: US venous doppler duplex LE RT DATE OF EXAM: 03/31/2020 5:06 PM COMPARISON: NONE CLINICAL HISTORY: R22.41 swelling of R lower limb. Post op knee surgery SIDE PERFORMED: Right TECHNIQUE: The lower extremity deep venous system is examined utilizing real time linear array sonog naty with graded compression, doppler sonography and color-flow sonography. VESSELS IMAGED: Common Femoral Vein Deep Femoral Vein Greater Saphenous Vein * Femoral Vein Popliteal Vein Small Saphenous Vein * Proximal Calf Veins (* superficial vessels) Right Leg: Negative for DVT IMPRESSION: No evidence for DVT.
== END ==
LOC: RADUSWWP 16:49
PROVIDERS: ATTEND Orthopaedic Surgery
DX: M79.661 Pain in right lower leg (principal); R22.41 Localized swelling, mass and lump, right lower limb; Z88.8 Allergy status to other drugs, medicaments and biological substances

== ENCOUNTER 2020-05-01 03:50 | Observation (INO) | payer MEDICARE ==
[2020-05-01] MEDS ORDERED: SODIUM CHLORIDE 0.9% 1,000 ML IV ONE (03:58)
[2020-05-01] MEDS ORDERED: diphenhydrAMINE 50 MG/ML 1 ML VIAL IVP STA (03:58)
--- NOTE | 2020-05-01 04:00 | ED ---
Altered Mental Status HPI - General Chief Complaint: Altered Mental Status Stated Complaint: Altered Mental Status Time Seen by Provider: 05/01/20 03:55 Source: patient, EMS, RN notes reviewed, old records reviewed Mode of arrival: EMS Limitations: altered mental status, physical limitation - History of Present Illness Initial Comments: This is a 51-year-old female DF for evaluation patient Dese for evaluation of altered mental status. Patient presents by EMS for significant difficulty with responsiveness, waxing and waning level of consciousness. Patient presents today again appropriately. Patient did recently of bariatric surgery MD Complaint: altered mental status, confusion, decreased responsiveness -: days(s) Severity: moderate Consistency of Symptoms: waxing and waning, getting worse Context: history of similar presentation Associated Symptoms: denies other symptoms - Related Data Home Medications Medication Instructions Recorded Confirmed Albuterol Nebulized [Ventolin 2.5 mg INHALATION BID 07/07/13 03/13/20 Nebulized] Venlafaxine HCl [Effexor XR] 150 mg PO BID 01/12/15 03/13/20 Alive Ultra Potency 2 tab PO DAILY 12/10/17 03/13/20 Calcium Carbonate [Calcium] 1,200 mg PO DAILY 12/10/18 03/13/20 Cholecalciferol [Vitamin D3 (25 250 mg PO DAILY 12/10/18 03/13/20 Mcg = 1000 Iu)] Cyanocobalamin (Vitamin B-12) 2,000 mcg PO DAILY 12/10/18 03/13/20 [Vitamin B-12] Albuterol Sulfate [Albuterol 2 puff PO Q6H PRN 11/12/19 03/13/20 Sulfate Hfa] Buprenorphine HCl/Naloxone HCl 1 tab SUBLINGUAL QID 11/12/19 03/13/20 [Zubsolv 5.7-1.4 mg Tablet Sl] Diclofenac Sodium Gel [Voltaren 2 gm TOPICAL QID PRN 11/12/19 03/13/20 Gel] Furosemide [Lasix] 20 mg PO DAILY 11/12/19 03/13/20 L.acidoph,Paracasei, B.lactis 3 each PO DAILY 11/12/19 03/13/20 [Probiotic] Lidocaine [Lidoderm 5% Patch] 1 patch TRANSDERM DAILY 11/12/19 03/13/20 Metoprolol Succinate (ER) [Toprol 50 mg PO QAM 11/12/19 03/13/20 XL] Potassium Chloride 10 meq PO Q48H 11/12/19 03/13/20 Cranberry Fruit Extract [Cranberry] 1,000 mg PO DAILY 01/13/20 03/13/20 Magnesium 500 mg PO DAILY 01/13/20 03/13/20 Fluticasone/Umeclidin/Vilanter 1 puff INHALATION DAILY 03/03/20 03/13/20 [Trelegy Ellipta 200-62.5-25] Acetaminophen-Codeine 300-30mg 1 tab PO TID PRN 03/13/20 03/13/20 [Tylenol w/codeine #3] Previous Rx's Medication Instructions Recorded Pantoprazole [Protonix] 40 mg PO BID #60 tab 08/21/18 Ondansetron Odt [Zofran ODT] 4 mg PO Q8HR PRN #30 tab 01/12/20 Acetaminophen-Codeine 300-30mg 1 - 2 tab PO Q6H PRN 3 Days #42 03/15/20 [Tylenol w/codeine #3] tablet Enoxaparin [Lovenox] 40 mg SQ DAILY #12 syringe 03/15/20 Allergies Allergy/AdvReac Type Severity Reaction Status Date / Time aspirin Allergy has ulcer Verified 05/01/20 03:59 temazepam [From Restoril] Allergy nightmares Verified 05/01/20 03:59 ibuprofen [From Motrin] AdvReac Unknown Verified 05/01/20 03:59 Mushroom AdvReac Nausea & Verified 05/01/20 03:59 Vomiting Review of Systems ROS Statement: Those systems with pertinent positive or pertinent negative responses have been documented in the HPI. ROS Other: All systems not noted in ROS Statement are negative. Past Medical History Past Medical History: COPD, CVA/TIA, Fibromyalgia, GERD/Reflux, Hearing Disorder / Deafness, Hyperlipidemia, Hypertension, Liver Disease, Memory Impairment, Osteoarthritis (OA) Additional Past Medical History / Comment(s): Hard of hearing left ear. Short term memory loss. Hernandez's esophagus - surgically removed, hx hiatal hernia, chronic back and neck pain, hx stroke 02/2015, TIA 06/2016 with L arm weakness, chronic bronchitis, sinus problems, hx migraines, problems with balance and falls. Hx Anemia. Fatty liver, frequent UTI's, varicose veins. History of Any Multi-Drug Resistant Organisms: None Reported Past Surgical History: Appendectomy, Back Surgery, Bariatric Surgery, Bladder Surgery, Cardiac Valve Replacement, Section, Cholecystectomy, Hernia Repair, Joint Replacement, Tubal Ligation Additional Past Surgical History / Comment(s): BACK SURGERY X6 (3rd for mid- back/removal of spinal cord stimulator), cervical fusion, LAP GABRIEL EN Y (11/06/15), EGDs and EGD with dilatation and removal of a staple that had migrated, colonoscopy/benign polypectomy, bilateral knee injections, open heart surgery with valve replacement, all teeth extracted, laparotomy & lysis of adhesions Past Anesthesia/Blood Transfusion Reactions: Postoperative Nausea & Vomiting (PONV) Additional Past Anesthesia/Blood Transfusion Reaction / Comment(s): Slow to wake up from anesthesia Past Psychological History: Anxiety, Depression Smoking Status: Current every day smoker Past Alcohol Use History: None Reported Past Drug Use History: None Reported - Past Family History Sister(s) Family Medical History: Myocardial Infarction ([place]) Additional Family Medical History / Comment(s): at age 43 of [place]. Mother Family Medical History: Myocardial Infarction ([place]) Additional Family Medical History / Comment(s): Mother at age 62 of [place]. Father Family Medical History: Myocardial Infarction ([place]) Additional Family Medical History / Comment(s): Father in his 40's of a [place]. General Exam Limitations: altered mental status, physical limitation General appearance: alert, in no apparent distress Head exam: Present: atraumatic, normocephalic, normal inspection Eye exam: Present: normal appearance, PERRL, EOMI. Absent: scleral icterus, conjunctival injection, periorbital swelling ENT exam: Present: normal exam, mucous membranes moist Neck exam: Present: normal inspection. Absent: tenderness, meningismus, lymphadenopathy Respiratory exam: Present: normal lung sounds bilaterally. Absent: respiratory distress, wheezes, rales, rhonchi, stridor Cardiovascular Exam: Present: regular rate, normal rhythm, normal heart sounds. Absent: systolic murmur, diastolic murmur, rubs, gallop, clicks GI/Abdominal exam: Present: soft, normal bowel sounds. Absent: distended, tenderness, guarding, rebound, rigid Extremities exam: Present: normal inspection, full ROM, normal capillary refill. Absent: tenderness, pedal edema, joint swelling, calf tenderness Back exam: Present: normal inspection Neurological exam: Present: alert, oriented X3, CN II-XII intact Psychiatric exam: Present: normal affect, normal mood Skin exam: Present: warm, dry, intact, normal color. Absent: rash Course Vital Signs 05/01/20 05/01/20 05/01/20 03:52 05:00 05:25 Pulse Rate 99 83 Respiratory 18 16 14 Rate Blood Pressure 105/94 05/01/20 05:29 Pulse Rate 83 Respiratory 16 Rate Blood Pressure 122/77 - Reevaluation(s) Reevaluation #1: 05/01/20 03:59 Medical records reviewed Reevaluation #2: 05/01/20 05:33 Patient has no improvement here in the ER no response to Narcan Reevaluation #3: 05/01/20 05:33 Patient is protecting airway with normal pulse ox Medical Decision Making - Medical Decision Making 51 female for altered mental status decreased level responsiveness. No response to Narcan here in the ER, patient will be admitted for continued monitoring, cysts patient has polysubstance, psychiatric medication abuse - Lab Data Result diagrams: 05/01/20 04:11 05/01/20 04:11 Lab Results 05/01/20 05/01/20 05/01/20 Range/Units 04:11 04:11 04:11 WBC 8.4 (3.8-10.6) k/uL RBC 4.66 (3.80-5.40) m/uL Hgb 12.6 (11.4-16.0) gm/dL Hct 40.5 (34.0-46.0) % MCV 86.9 (80.0-100.0) fL MCH 27.0 (25.0-35.0) pg MCHC 31.0 (31.0-37.0) g/dL RDW 14.6 (11.5-15.5) % Plt Count 299 (150-450) k/uL MPV 7.4 Neutrophils % 75 % Lymphocytes % 17 % Monocytes % 5 % Eosinophils % 0 % Basophils % 0 % Neutrophils # 6.3 (1.3-7.7) k/uL Lymphocytes # 1.4 (1.0-4.8) k/uL Monocytes # 0.5 (0-1.0) k/uL Eosinophils # 0.0 (0-0.7) k/uL Basophils # 0.0 (0-0.2) k/uL Hypochromasia Slight PT 10.2 (9.0-12.0) sec INR 0.9 (<1.2) APTT 23.4 (22.0-30.0) sec Sodium (137-145) mmol/L Potassium (3.5-5.1) mmol/L Chloride (98-107) mmol/L Carbon Dioxide (22-30) mmol/L Anion Gap mmol/L BUN (7-17) mg/dL Creatinine (0.52-1.04) mg/dL Est GFR (CKD-EPI)AfAm (>60 ml/min/1.73 sqM) Est GFR (CKD-EPI)NonAf (>60 ml/min/1.73 sqM) Glucose (74-99) mg/dL Calcium (8.4-10.2) mg/dL Phosphorus (2.5-4.5) mg/dL Magnesium (1.6-2.3) mg/dL Total Bilirubin (0.2-1.3) mg/dL AST (14-36) U/L ALT (4-34) U/L Alkaline Phosphatase (38-126) U/L Ammonia (<30) umol/L Creatine Kinase (30-135) U/L Troponin I (0.000-0.034) ng/mL Total Protein (6.3-8.2) g/dL Albumin (3.5-5.0) g/dL Urine Color Light Yellow Urine Appearance Clear (Clear) Urine pH 5.5 (5.0-8.0) Ur Specific [place] 1.003 (1.001-1.035) Urine Protein Negative (Negative) Urine Glucose (UA) Negative (Negative) Urine Ketones Negative (Negative) Urine Blood Negative (Negative) Urine Nitrite Negative (Negative) Urine Bilirubin Negative (Negative) Urine Urobilinogen <2.0 (<2.0) mg/dL Ur Leukocyte Esterase Large H (Negative) Urine RBC 3 (0-5) /hpf Urine WBC 5 (0-5) /hpf Urine Bacteria Rare H (None) /hpf Urine Mucus Rare H (None) /hpf Salicylates mg/dL Urine Opiates Screen Detected H (NotDetected) Ur Oxycodone Screen Not Detected (NotDetected) Urine Methadone Screen Not Detected (NotDetected) Ur Propoxyphene Screen Not Detected (NotDetected) Acetaminophen ug/mL Ur Barbiturates Screen Not Detected (NotDetected) U Tricyclic Antidepress Not Detected (NotDetected) Ur Phencyclidine Scrn Not Detected (NotDetected) Ur Amphetamines Screen Not Detected (NotDetected) U Methamphetamines Scrn Not Detected (NotDetected) U Benzodiazepines Scrn Not Detected (NotDetected) Urine Cocaine Screen Not Detected (NotDetected) U Marijuana (THC) Screen Not Detected (NotDetected) Serum Alcohol mg/dL 05/01/20 05/01/20 05/01/20 Range/Units 04:11 04:11 04:11 WBC (3.8-10.6) k/uL RBC (3.80-5.40) m/uL Hgb (11.4-16.0) gm/dL Hct (34.0-46.0) % MCV (80.0-100.0) fL MCH (25.0-35.0) pg MCHC (31.0-37.0) g/dL RDW (11.5-15.5) % Plt Count (150-450) k/uL MPV Neutrophils % % Lymphocytes % % Monocytes % % Eosinophils % % Basophils % % Neutrophils # (1.3-7.7) k/uL Lymphocytes # (1.0-4.8) k/uL Monocytes # (0-1.0) k/uL Eosinophils # (0-0.7) k/uL Basophils # (0-0.2) k/uL Hypochromasia PT (9.0-12.0) sec INR (<1.2) APTT (22.0-30.0) sec Sodium 135 L (137-145) mmol/L Potassium 4.7 (3.5-5.1) mmol/L Chloride 103 (98-107) mmol/L Carbon Dioxide 27 (22-30) mmol/L Anion Gap 5 mmol/L BUN 7 (7-17) mg/dL Creatinine 0.81 (0.52-1.04) mg/dL Est GFR (CKD-EPI)AfAm >90 (>60 ml/min/1.73 sqM) Est GFR (CKD-EPI)NonAf 81 (>60 ml/min/1.73 sqM) Glucose 129 H (74-99) mg/dL Calcium 8.8 (8.4-10.2) mg/dL Phosphorus 4.4 (2.5-4.5) mg/dL Magnesium 2.1 (1.6-2.3) mg/dL Total Bilirubin 0.3 (0.2-1.3) mg/dL AST 29 (14-36) U/L ALT 20 (4-34) U/L Alkaline Phosphatase 167 H (38-126) U/L Ammonia <9 (<30) umol/L Creatine Kinase 65 (30-135) U/L Troponin I <0.012 (0.000-0.034) ng/mL Total Protein 6.7 (6.3-8.2) g/dL Albumin 3.6 (3.5-5.0) g/dL Urine Color Urine Appearance (Clear) Urine pH (5.0-8.0) Ur Specific [place] (1.001-1.035) Urine Protein (Negative) Urine Glucose (UA) (Negative) Urine Ketones (Negative) Urine Blood (Negative) Urine Nitrite (Negative) Urine Bilirubin (Negative) Urine Urobilinogen (<2.0) mg/dL Ur Leukocyte Esterase (Negative) Urine RBC (0-5) /hpf Urine WBC (0-5) /hpf Urine Bacteria (None) /hpf Urine Mucus (None) /hpf Salicylates <1.0 mg/dL Urine Opiates Screen (NotDetected) Ur Oxycodone Screen (NotDetected) Urine Methadone Screen (NotDetected) Ur Propoxyphene Screen (NotDetected) Acetaminophen <10.0 ug/mL Ur Barbiturates Screen (NotDetected) U Tricyclic Antidepress (NotDetected) Ur Phencyclidine Scrn (NotDetected) Ur Amphetamines Screen (NotDetected) U Methamphetamines Scrn (NotDetected) U Benzodiazepines Scrn (NotDetected) Urine Cocaine Screen (NotDetected) U Marijuana (THC) Screen (NotDetected) Serum Alcohol <10 mg/dL - EKG Data -: EKG Interpreted by Me (EKG shows sinus rhythm 83 NV 136 QRS 82 QTC 542) Interpretation: other (Repeat sinus bradycardia 49 NV 148 QRS 88 QTc 451) - Radiology Data Radiology results: report reviewed (CT brain is negative for acute disease), image reviewed Disposition Clinical Impression: Altered mental status Disposition: ADMITTED IP TO THIS HOSP Condition: Fair Referrals: None,Stated [Primary Care Provider] - 1-2 days
[2020-05-01 04:22] LABS: Basophils % (A) 0 %; Eosinophils % (A) 0 %; HCT 40.5 % (34.0-46.0); HGB 12.6 gm/dL (11.4-16.0); Hypochromasia Slight; Lymphocytes # (A) 1.4 k/uL (1.0-4.8); Lymphocytes % (A) 17 %; MCV 86.9 fL (80.0-100.0); Mean Platelet Volume 7.4; Monocytes # (A) 0.5 k/uL (0-1.0); Monocytes % (A) 5 %; Neutrophils # (A) 6.3 k/uL (1.3-7.7); Neutrophils % (A) 75 %; Platelet Count 299 k/uL (150-450); RBC 4.66 m/uL (3.80-5.40); RDW 14.6 % (11.5-15.5); WBC 8.4 k/uL (3.8-10.6)
[2020-05-01 04:24] LABS: VBG PH 7.38 (7.31-7.41)
[2020-05-01 04:32] LABS: INR 0.9 (<1.2); Partial Thromboplastin Time 23.4 sec (22.0-30.0); Prothrombin Time 10.2 sec (9.0-12.0)
[2020-05-01 04:35] LABS: ALT 20 U/L (4-34); AST 29 U/L (14-36); Acetaminophen <10.0 ug/mL; African American GFR (CKD) >90 (>60 ml/min/1.73 sqM); Albumin 3.6 g/dL (3.5-5.0); Alcohol <10 mg/dL; Alkaline Phosphatase 167 U/L (38-126); Anion Gap 5 mmol/L; Blood Urea Nitrogen 7 mg/dL (7-17); Calcium 8.8 mg/dL (8.4-10.2); Carbon Dioxide 27 mmol/L (22-30); Chloride 103 mmol/L (98-107); Creatine Kinase 65 U/L (30-135); Glucose 129 mg/dL (74-99); Magnesium 2.1 mg/dL (1.6-2.3); Non-African American GFR(CKD) 81 (>60 ml/min/1.73 sqM); Phosphorus 4.4 mg/dL (2.5-4.5); Potassium 4.7 mmol/L (3.5-5.1); Salicylate <1.0 mg/dL; Sodium 135 mmol/L (137-145); Total Bilirubin 0.3 mg/dL (0.2-1.3); Total Protein 6.7 g/dL (6.3-8.2)
--- NOTE | 2020-05-01 04:42 | CT ---
EXAM: CT Head Without Intravenous Contrast CLINICAL HISTORY: Altered mental status. TECHNIQUE: Axial computed tomography images of the head/brain without intravenous contrast. CTDI is 49.27 mGy and DLP is 1201.4 mGy-cm. This CT exam was performed using one or more of the following dose reduction techniques: automated exposure control, adjustment of the mA and/or kV according to patient size, and/or use of iterative reconstruction technique. COMPARISON: 05/10/2018. FINDINGS: Brain: No abnormal extra-axial collection. No hemorrhage. No significant white matter disease. Midline shift: Midline anatomy is unremarkable. Ventricles: Unremarkable. No ventriculomegaly. Bones/joints: Calvarium is within normal limits. No acute fracture. Soft tissues: Unremarkable. Sinuses: Mild to moderate chronic right ethmoid sinusitis. Mastoid air cells: Mastoid air cells are well pneumatized. Other findings: Age related changes. IMPRESSION: 1. Age related changes. 2. No acute intracranial pathology. 3. If there is concern for etiology such as early acute lacunar infarcts, magnetic resonance imaging of the brain with diffusion-weighted sequences should be performed.
[2020-05-01 04:48] LABS: Appearance,Urine Clear (Clear); Bacteria,Urine Rare /hpf; Bilirubin,Urine Negative (Negative); Blood,Urine Negative (Negative); Color,Urine Light Yellow; Glucose,Urine (UA) Negative (Negative); Ketones,Urine Negative (Negative); Leukocyte Esterase,Urine Large (Negative); Mucus,Urine Rare /hpf; Nitrite,Urine Negative (Negative); PH, Urine 5.5 (5.0-8.0); Protein,Urine Negative (Negative); RBC,Urine 3 /hpf (0-5); Specific Gravity,Urine 1.003 (1.001-1.035); Urobilinogen,Urine <2.0 mg/dL (<2.0); WBC,Urine 5 /hpf (0-5)
[2020-05-01 04:50] LABS: Amphetamine Screen,Urine Not Detected (NotDetected); Barbiturate Screen,Urine Not Detected (NotDetected); Benzodiazepines Screen,Urine Not Detected (NotDetected); Cocaine Screen,Urine Not Detected (NotDetected); Methadone Screen, Urine Not Detected (NotDetected); Opiate Screen,Urine Detected (NotDetected); Oxycodone Screen, Urine Not Detected (NotDetected); Phencyclidine Screen,Urine Not Detected (NotDetected); Tricyclic Antidepressant,Urine Not Detected (NotDetected); Urn Cannabinoid Scrn Not Detected (NotDetected)
[2020-05-01] MEDS ORDERED: NALOXONE 0.4 MG/ML 1 ML VIAL IVP STA (05:21)
[2020-05-01] MEDS ORDERED: DEXTROSE 5%-0.45% NACL 1,000 ML IV ONE (05:32)
[2020-05-01] MEDS ORDERED: DICLOFENAC SODIUM GEL 100 GM TUBE TOPICAL PRN (10:20)
[2020-05-01] MEDS ORDERED: ALBUTEROL NEBULIZED 2.5 MG/3 ML INHALATION PRN (10:20)
[2020-05-01] MEDS: METOPROLOL SUCCINATE (ER) 50 MG TAB.ER.24H PO SCH (10:36)
[2020-05-01] MEDS: ENOXAPARIN 40 MG/0.4 ML SYRINGE SQ SCH (10:38)
--- NOTE | 2020-05-01 11:44 | P.HPIM ---
History of Present Illness Patient is a 59-year-old female being admitted for altered mental status patient came in with decreased responsiveness patient is more responsive now but still unable to provide any history to me patient is excessively drowsy and sleepy with constricted pupils. Patient does have history of opiate abuse in the was on Suboxone at home. Unsure whether patient took any additional medications apart from her regular Suboxone. Patient is a unable to provide any history to me. Review of Systems Unable to obtain any review of systems Past Medical History Past Medical History: COPD, CVA/TIA, Fibromyalgia, GERD/Reflux, Hearing Disorder / Deafness, Hyperlipidemia, Hypertension, Liver Disease, Memory Impairment, Osteoarthritis (OA), Vascular Disorder Additional Past Medical History / Comment(s): 2016 CVA with mild L arm weakness, 2017 TIA, alfaro's esophagus with surgery, Cherie en Y surgery, spouse states pt has difficuty with stomach/eats and occasionally vomits, hiatal hernia, SBO d/t adhesions with surgery, short term memory issues, balance problem/falls, Frequent UTIs, anemia, varicosities, fluid retention, chronic cervical/back pain, migraines, seasonal allergies/sinus problems, [place] L ear. History of Any Multi-Drug Resistant Organisms: None Reported Past Surgical History: Appendectomy, Back Surgery, Bariatric Surgery, Bladder Surgery, Cardiac Valve Replacement, Section, Cholecystectomy, Joint Replacement, Tubal Ligation Additional Past Surgical History / Comment(s): EGD, EGDs with dilation/removed migrated staple, colonoscopy/benign polyp, Cherie-en-Y, laparotomies d/t SBO with lysis of adhesions, multiple low back surgeries including spinal cord stimulator since removed, cervical fusion, total R knee arthroplasty 03/14/20, bilateral knee injections, bladder suspension, cardiac valve replacement, Past Anesthesia/Blood Transfusion Reactions: Postoperative Nausea & Vomiting (PONV) Additional Past Anesthesia/Blood Transfusion Reaction / Comment(s): Slow to wake up from anesthesia Smoking Status: Current every day smoker - Past Family History Sister(s) Family Medical History: Myocardial Infarction ([place]) Additional Family Medical History / Comment(s): at age 43 of [place]. Mother Family Medical History: Myocardial Infarction ([place]) Additional Family Medical History / Comment(s): Mother at age 62 of [place]. Father Family Medical History: Myocardial Infarction ([place]) Additional Family Medical History / Comment(s): Father in his 40's of a [place]. Medications and Allergies Home Medications Medication Instructions Recorded Confirmed Type Albuterol Nebulized [Ventolin 2.5 mg INHALATION RT-BID 07/07/13 05/01/20 History Nebulized] Venlafaxine HCl [Effexor XR] 150 mg PO BID 01/12/15 05/01/20 History Pantoprazole [Protonix] 40 mg PO BID #60 tab 08/21/18 05/01/20 Rx Calcium Carbonate [Calcium] 1,200 mg PO DAILY 12/10/18 05/01/20 History Cholecalciferol [Vitamin D3 (25 25 mcg PO DAILY 12/10/18 05/01/20 History Mcg = 1000 Iu)] Cyanocobalamin (Vitamin B-12) 2,000 mcg PO DAILY 12/10/18 05/01/20 History [Vitamin B-12] Albuterol Sulfate [Albuterol 2 puff INHALATION RT-QID PRN 11/12/19 05/01/20 History Sulfate Hfa] Buprenorphine HCl/Naloxone HCl 1 tab SL QID 11/12/19 05/01/20 History [Zubsolv 5.7-1.4 mg Tablet Sl] Diclofenac Sodium Gel [Voltaren 2 gm TOPICAL QID PRN 11/12/19 05/01/20 History Gel] Furosemide [Lasix] 20 mg PO DAILY 11/12/19 05/01/20 History L.acidoph,Paracasei, B.lactis 3 cap PO DAILY 11/12/19 05/01/20 History [Probiotic] Lidocaine [Lidoderm 5% Patch] 1 patch TRANSDERM DAILY 11/12/19 05/01/20 History Metoprolol Succinate (ER) [Toprol 50 mg PO DAILY 11/12/19 05/01/20 History XL] Fluticasone/Umeclidin/Vilanter 1 puff INHALATION RT-DAILY 03/03/20 05/01/20 History [Trelegy Ellipta 200-62.5-25] Acetaminophen-Codeine 300-30mg 1 tab PO Q6H PRN 05/01/20 05/01/20 History [Tylenol w/codeine #3] Cranberry Fruit Extract [Cranberry] 1,000 mg PO DAILY 05/01/20 05/01/20 History Magnesium Gluconate [Magonate] 500 mg PO DAILY 05/01/20 05/01/20 History Multivitamins, Thera [Multivitamin 1 tab PO DAILY 05/01/20 05/01/20 History (formulary)] Ondansetron HCl [Zofran] 4 mg PO TID PRN 05/01/20 05/01/20 History Potassium Chloride ER [K-Dur 20] 20 meq PO DAILY PRN 05/01/20 05/01/20 History Allergies Allergy/AdvReac Type Severity Reaction Status Date / Time aspirin Allergy has ulcer Verified 05/01/20 07:06 temazepam [From Restoril] Allergy nightmares Verified 05/01/20 07:06 ibuprofen [From Motrin] AdvReac Unknown Verified 05/01/20 07:06 Mushroom AdvReac Nausea & Verified 05/01/20 07:06 Vomiting Physical Exam Vitals: Vital Signs Temp Pulse Resp BP Pulse Ox 05/01/20 10:30 93 16 172/105 98 05/01/20 09:08 155/106 05/01/20 08:11 98 20 157/93 97 05/01/20 05:51 97.6 F 113 H 16 131/92 97 05/01/20 05:29 83 16 122/77 05/01/20 05:25 14 05/01/20 05:00 83 16 05/01/20 03:52 99 18 105/94 Intake and Output 04/30/20 05/01/20 05/01/20 22:59 06:59 14:59 Other: Weight 81.647 kg 81.647 kg PHYSICAL EXAMINATION: GENERAL: Patient is excessively drowsy and arousable with verbal stimuli., not in any acute distress. Well developed, well nourished. HEENT: Pulses are constricted. EOMI. No scleral icterus. No conjunctival pallor. Normocephalic, atraumatic. No pharyngeal erythema. No thyromegaly. CARDIOVASCULAR: S1 and S2 present. No murmurs, rubs, or gallops. PULMONARY: Chest is clear to auscultation, no wheezing or crackles. ABDOMEN: Soft, nontender, nondistended, normoactive bowel sounds. No palpable organomegaly. MUSCULOSKELETAL: No joint swelling or deformity. EXTREMITIES: No cyanosis, clubbing, or pedal edema. NEUROLOGICAL: Going all 4 limbs SKIN: No rashes. Results CBC & Chem 7: 05/01/20 04:11 05/01/20 04:11 Labs: Abnormal Lab Results - Last 24 Hours (Table) 05/01/20 05/01/20 Range/Units 04:11 04:11 Sodium 135 L (137-145) mmol/L Glucose 129 H (74-99) mg/dL Alkaline Phosphatase 167 H (38-126) U/L Ur Leukocyte Esterase Large H (Negative) Urine Bacteria Rare H (None) /hpf Urine Mucus Rare H (None) /hpf Urine Opiates Screen Detected H (NotDetected) Thrombosis Risk Factor Assmnt - Choose All That Apply Any of the Below Risk Factors Present?: Yes Each Factor Represents 1 point: Abnormal pulmonary function (COPD), Age 41-60 years, Medical pt on bed rest, Obesity (BMI >25), Varicose veins Other Risk Factors: Yes Each Risk Factor Represents 2 Points: Patient confined to bed Other congenital or acquired thrombophilia - If yes, enter type in comment: No Thrombosis Risk Factor Assessment Total Risk Factor Score: 7 Thrombosis Risk Factor Assessment Level: High Risk Assessment and Plan Plan: -Altered mental status: Probably secondary to opiate overuse of opiate abuse. These medications will be held and patient will be continued on IV fluids patient will be monitored patient apparently received the one dose of Narcan. CT of the head did not show any evidence of stroke -COPD continued nicotine use without any acute exacerbation -Hypertension -hyperlipidemia -Gastroesophageal reflux disease Hypertension depression -DVT prophylaxis with Lovenox
--- NOTE | 2020-05-01 16:16 | P.CNNES ---
History of Present Illness Consult date: 05/01/20 Requesting physician: Dragan Yoo Reason for Consult: Altered mental status History of Present Illness: Patient is a 59-year-old female came to the hospital this morning at 3:50 AM for altered mental status. Patient was having difficulty with unresponsiveness, waxing and waning level of consciousness. Patient has history of bariatric surgery. Patient not able to provide any history. Per EMS flow sheet has reported that patient is normally alert and oriented 4, ambulatory, about 2 hours prior to their arrival, patient began acting differently, not responding to her and just sitting on the couch. When EMS arrived, patient was alert but not following commands or speaking. Patient was transferred outside to stretch her, once outside patient stands up on her own and states "it's cold, I'm not going to know hospital", and walked up the stairs back into the house. Once in the house patient again states she does not want to go to the hospital. Patient's urging patient to get checked out. Patient then stopped answering all questions again. Patient's mentioned that this has happened before as well and she was taken to the hospital and no findings were seen. Patient later agreed to be transferred to the hospital. Patient was combative and uncooperative. Monitor showed sinus rhythm. Patient's vital signs shows blood pressure 181/98, pulse rate 91, respirations 16, saturation 100%. Blood sugar 162. Patient continues to be altered, and would not answer to any questions. However when she wants to pass urine, she would tell the nurse clearly that she wants to go to the bathroom. She would get up by herself, sit in the bedside commode, and then go back to the bed and would not respond. Patient's blood test shows normal CBC, PT/PTT, CMP with potassium 4.7 sodium 135 normal renal functions. Hepatic panel normal, troponin negative. CK 65, UA negative, urine drug screen positive for opiate. Patient is on Suboxone. Vieyra wireless PCR negative. CT head showed age-related changes. No acute intracranial pathology. EKG with sinus bradycardia. Nonspecific ST-T wave abnormality. 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 History of Any Multi-Drug Resistant Organisms: None Reported Past Surgical History: Appendectomy, Back Surgery, Bariatric Surgery, Bladder Surgery, Cardiac Valve Replacement, Section, Cholecystectomy, Joint Replacement, Tubal Ligation Additional Past Surgical History / Comment(s): EGD, EGDs with dilation/removed migrated staple, colonoscopy/benign polyp, Cherie-en-Y, laparotomies d/t SBO with lysis of adhesions, multiple low back surgeries including spinal cord stimulator since removed, cervical fusion, total R knee arthroplasty 03/14/20, bilateral knee injections, bladder suspension, cardiac valve replacement, Past Anesthesia/Blood Transfusion Reactions: Postoperative Nausea & Vomiting (PONV) Additional Past Anesthesia/Blood Transfusion Reaction / Comment(s): Slow to wake up from anesthesia Smoking Status: Current every day smoker - Past Family History Sister(s) Family Medical History: Myocardial Infarction (NH) Additional Family Medical History / Comment(s): at age 43 of NH. Mother Family Medical History: Myocardial Infarction (NH) Additional Family Medical History / Comment(s): Mother at age 62 of NH. Father Family Medical History: Myocardial Infarction (NH) Additional Family Medical History / Comment(s): Father in his 40's of a NH. Medications and Allergies Home Medications Medication Instructions Recorded Confirmed Type Albuterol Nebulized [Ventolin 2.5 mg INHALATION RT-BID 07/07/13 05/01/20 History Nebulized] Venlafaxine HCl [Effexor XR] 150 mg PO BID 01/12/15 05/01/20 History Pantoprazole [Protonix] 40 mg PO BID #60 tab 08/21/18 05/01/20 Rx Calcium Carbonate [Calcium] 1,200 mg PO DAILY 12/10/18 05/01/20 History Cholecalciferol [Vitamin D3 (25 25 mcg PO DAILY 12/10/18 05/01/20 History Mcg = 1000 Iu)] Cyanocobalamin (Vitamin B-12) 2,000 mcg PO DAILY 12/10/18 05/01/20 History [Vitamin B-12] Albuterol Sulfate [Albuterol 2 puff INHALATION RT-QID PRN 11/12/19 05/01/20 History Sulfate Hfa] Buprenorphine HCl/Naloxone HCl 1 tab SL QID 11/12/19 05/01/20 History [Zubsolv 5.7-1.4 mg Tablet Sl] Diclofenac Sodium Gel [Voltaren 2 gm TOPICAL QID PRN 11/12/19 05/01/20 History Gel] Furosemide [Lasix] 20 mg PO DAILY 11/12/19 05/01/20 History L.acidoph,Paracasei, B.lactis 3 cap PO DAILY 11/12/19 05/01/20 History [Probiotic] Lidocaine [Lidoderm 5% Patch] 1 patch TRANSDERM DAILY 11/12/19 05/01/20 History Metoprolol Succinate (ER) [Toprol 50 mg PO DAILY 11/12/19 05/01/20 History XL] Fluticasone/Umeclidin/Vilanter 1 puff INHALATION RT-DAILY 03/03/20 05/01/20 History [Trelegy Ellipta 200-62.5-25] Acetaminophen-Codeine 300-30mg 1 tab PO Q6H PRN 05/01/20 05/01/20 History [Tylenol w/codeine #3] Cranberry Fruit Extract [Cranberry] 1,000 mg PO DAILY 05/01/20 05/01/20 History Magnesium Gluconate [Magonate] 500 mg PO DAILY 05/01/20 05/01/20 History Multivitamins, Thera [Multivitamin 1 tab PO DAILY 05/01/20 05/01/20 History (formulary)] Ondansetron HCl [Zofran] 4 mg PO TID PRN 05/01/20 05/01/20 History Potassium Chloride ER [K-Dur 20] 20 meq PO DAILY PRN 05/01/20 05/01/20 History Allergies Allergy/AdvReac Type Severity Reaction Status Date / Time aspirin Allergy has ulcer Verified 05/01/20 07:06 temazepam [From Restoril] Allergy nightmares Verified 05/01/20 07:06 ibuprofen [From Motrin] AdvReac Unknown Verified 05/01/20 07:06 Mushroom AdvReac Nausea & Verified 05/01/20 07:06 Vomiting Physical Examination - Vital Signs Vital Signs: Vital Signs Temp Pulse Resp BP Pulse Ox 05/01/20 14:11 89 16 139/90 98 05/01/20 11:30 89 16 136/97 98 05/01/20 10:30 93 16 172/105 98 05/01/20 09:08 155/106 05/01/20 08:11 98 20 157/93 97 05/01/20 05:51 97.6 F 113 H 16 131/92 97 05/01/20 05:29 83 16 122/77 05/01/20 05:25 14 05/01/20 05:00 83 16 05/01/20 03:52 99 18 105/94 Intake and Output 05/01/20 05/01/20 05/01/20 06:59 14:59 22:59 Other: Weight 81.647 kg 81.647 kg On examination patient is a middle aged female, who is laying in the bed, snoring at times. Patient would not answer to any questions. However as per nursing report, she was talking to the nurse when only she wants to go to passing urine. She would get up, and sit on the bedside commode and then come back and laid down and not respond. Her pupils are round and reacting, oculocephalics are present. However on painful stimuli, patient does breakup and withdraws hands purposefully. Face is symmetric. Visual garcia could not be tested. Tone is equal bilaterally. Patient response to painful stimuli equally. Reflexes are diminished and plantars are flat bilaterally. Cerebellar functions, gait could not be assessed at this time. No obvious bruit. S1 and S2 audible, abdomen soft. Peripheral pulses present. No peripheral edema. Results - Laboratory Findings CBC and BMP: 05/01/20 04:11 05/01/20 04:11 Abnormal Lab Findings: Abnormal Labs 05/01/20 05/01/20 04:11 04:11 Sodium 135 L Glucose 129 H Alkaline Phosphatase 167 H Ur Leukocyte Esterase Large H Urine Bacteria Rare H Urine Mucus Rare H Urine Opiates Screen Detected H Assessment and Plan Assessment: * Altered mental status, possible substance abuse. Patient is on Suboxone, but her urine drugs screen is positive for opiates. Limited examination is nonfocal. Patient is appropriately responding to urge for urination. * History of multiple low back surgeries, cervical fusion * History of bariatric surgery. Plan: * I think at this point watch for observation is the best choice. * Continue close observation. Hopefully she will wake up at end of the day. * Patient's B12 level is normal 962 on 04/24/2020, folate > 24.0, normal TSH. * We will follow patient clinically.
[2020-05-01] MEDS: PANTOPRAZOLE 40 MG TABLET PO SCH (17:40)
[2020-05-01] MEDS: ALBUTEROL NEBULIZED 2.5 MG/3 ML INHALATION SCH (20:04)
[2020-05-01] MEDS: VENLAFAXINE HCL ER 150 MG CAP PO SCH (20:36)
[2020-05-02] MEDS ORDERED: SYMBICORT 80-4.5 MCG INHALER INHALATION SCH (08:00)
[2020-05-02] MEDS: ALBUTEROL NEBULIZED 2.5 MG/3 ML INHALATION SCH (08:14)
[2020-05-02] MEDS: IPRATROPIUM 0.5 MG/2.5 ML NEBU INHALATION SCH ×2 (08:14→12:08)
[2020-05-02] MEDS: PANTOPRAZOLE 40 MG TABLET PO SCH (08:51)
[2020-05-02] MEDS: VENLAFAXINE HCL ER 150 MG CAP PO SCH (08:51)
[2020-05-02] MEDS: METOPROLOL SUCCINATE (ER) 50 MG TAB.ER.24H PO SCH (08:51)
[2020-05-02] MEDS: ENOXAPARIN 40 MG/0.4 ML SYRINGE SQ SCH (08:51)
[2020-05-02] MEDS ORDERED: MAGNESIUM OXIDE 400 MG TAB PO SCH (09:00)
[2020-05-02] MEDS ORDERED: LIDOCAINE 5% PATCH TOPICAL SCH (09:00)
[2020-05-02] MEDS ORDERED: CALCIUM CARBONATE 500 MG CHEWABLE PO SCH (09:00)
[2020-05-02 10:55] LABS: African American GFR (CKD) 94.2 (60.0-200.0); Calcium 8.5 mg/dL (8.7-10.3); Non-African American GFR(CKD) 81.3 (60.0-200.0); Potassium 4.4 mmol/L (3.5-5.5)
[2020-05-02 11:55] VITALS: BP 158/98; TEMP 98.2
[2020-05-02 12:10] VITALS: RESP 16
[2020-05-02 12:19] VITALS: PULSE 90
--- NOTE | 2020-05-02 17:05 | P.DS ---
Providers Date of admission: 05/01/20 05:31 Expected date of discharge: 05/02/20 Attending physician: Zeina Logan Consults: 05/01/20 10:22 Consult Physician Routine Consulting Provider: Alan Cano Consult Reason/Comments: AMS Do you want consulting provider notified?: Yes Primary care physician: Stated None Hospital Course: Final diagnosis -Altered mental status: Probably secondary to opiate overuse of opiate abuse -COPD without any acute exacerbation -continued nicotine use -Hypertension -hyperlipidemia -Gastroesophageal reflux disease -depression -DVT prophylaxis Discharge disposition Patient is being discharged in a stable condition with guarded prognosis to home. Patient will follow-up with Dr. Daniels upon discharge. Patient also instructed to follow-up with pain management in the outpatient setting. Total time taken is greater than 35 minutes. Hospital course Patient is a 59-year-old female being admitted for altered mental status patient came in with decreased responsiveness patient is more responsive now but still unable to provide any history to me patient is excessively drowsy and sleepy with constricted pupils. Patient does have history of opiate abuse in the was on Suboxone at home. Unsure whether patient took any additional medications apart from her regular Suboxone. Patient is a unable to provide any history to me. 05/02/2020 Patient is seen and evaluated and follow-up more alert and oriented and responding. Patient continues to have poor appetite although denies any nausea or vomiting and abdominal discomfort. Patient is asking to go home. She was seen and evaluated neurology recommending decreasing some pain medications as patient is on Suboxone. Patient will need close outpatient follow-up with primary care provider along with pain management. Currently no reports of chest pain, worsening shortness of breath, or palpitations. Patient is afebrile. No reports of nausea or vomiting and patient is tolerating diet. Guarded prognosis On exam vital signs are stable. Cardio S1, S2 are muffled. Respiratory shows diminished breath sounds at the bases with no wheezing or rhonchi noted. Abdomen is soft and nontender. Nervous system shows no focal deficits. Please refer to medication reconciliation sheet for a list of medications. Patient Condition at Discharge: Fair Plan - Discharge Summary Discharge Rx Participant: No New Discharge Prescriptions: Continue Albuterol Nebulized [Ventolin Nebulized] 2.5 mg INHALATION RT-BID Venlafaxine HCl [Effexor XR] 150 mg PO BID Pantoprazole [Protonix] 40 mg PO BID #60 tab Calcium Carbonate [Calcium] 1,200 mg PO DAILY Cholecalciferol [Vitamin D3 (25 Mcg = 1000 Iu)] 25 mcg PO DAILY Cyanocobalamin (Vitamin B-12) [Vitamin B-12] 2,000 mcg PO DAILY Albuterol Sulfate [Albuterol Sulfate Hfa] 2 puff INHALATION RT-QID PRN PRN Reason: Shortness Of Breath Or Wheezing Lidocaine [Lidoderm 5% Patch] 1 patch TRANSDERM DAILY Diclofenac Sodium Gel [Voltaren Gel] 2 gm TOPICAL QID PRN PRN Reason: Pain Metoprolol Succinate (ER) [Toprol XL] 50 mg PO DAILY Furosemide [Lasix] 20 mg PO DAILY L.acidoph,Paracasei, B.lactis [Probiotic] 3 cap PO DAILY Fluticasone/Umeclidin/Vilanter [Trelegy Ellipta 200-62.5-25] 1 puff INHALATION RT-DAILY Potassium Chloride ER [K-Dur 20] 20 meq PO DAILY PRN PRN Reason: W/LASIX Ondansetron HCl [Zofran] 4 mg PO TID PRN PRN Reason: Nausea Multivitamins, Thera [Multivitamin (formulary)] 1 tab PO DAILY Magnesium Gluconate [Magonate] 500 mg PO DAILY Cranberry Fruit Extract [Cranberry] 1,000 mg PO DAILY Acetaminophen-Codeine 300-30mg [Tylenol w/codeine #3] 1 tab PO Q6H PRN PRN Reason: Pain Changed Buprenorphine HCl/Naloxone HCl [Zubsolv 5.7-1.4 mg Tablet Sl] 1 tab SL BID #0 Discharge Medication List Albuterol Nebulized [Ventolin Nebulized] 2.5 mg INHALATION RT-BID 07/07/13 [History] Venlafaxine HCl [Effexor XR] 150 mg PO BID 01/12/15 [History] Pantoprazole [Protonix] 40 mg PO BID #60 tab 08/21/18 [Rx] Calcium Carbonate [Calcium] 1,200 mg PO DAILY 12/10/18 [History] Cholecalciferol [Vitamin D3 (25 Mcg = 1000 Iu)] 25 mcg PO DAILY 12/10/18 [History] Cyanocobalamin (Vitamin B-12) [Vitamin B-12] 2,000 mcg PO DAILY 12/10/18 [History] Albuterol Sulfate [Albuterol Sulfate Hfa] 2 puff INHALATION RT-QID PRN 11/12/19 [History] Diclofenac Sodium Gel [Voltaren Gel] 2 gm TOPICAL QID PRN 11/12/19 [History] Furosemide [Lasix] 20 mg PO DAILY 11/12/19 [History] L.acidoph,Paracasei, B.lactis [Probiotic] 3 cap PO DAILY 11/12/19 [History] Lidocaine [Lidoderm 5% Patch] 1 patch TRANSDERM DAILY 11/12/19 [History] Metoprolol Succinate (ER) [Toprol XL] 50 mg PO DAILY 11/12/19 [History] Fluticasone/Umeclidin/Vilanter [Trelegy Ellipta 200-62.5-25] 1 puff INHALATION RT-DAILY 03/03/20 [History] Acetaminophen-Codeine 300-30mg [Tylenol w/codeine #3] 1 tab PO Q6H PRN 05/01/20 [History] Cranberry Fruit Extract [Cranberry] 1,000 mg PO DAILY 05/01/20 [History] Magnesium Gluconate [Magonate] 500 mg PO DAILY 05/01/20 [History] Multivitamins, Thera [Multivitamin (formulary)] 1 tab PO DAILY 05/01/20 [History] Ondansetron HCl [Zofran] 4 mg PO TID PRN 05/01/20 [History] Potassium Chloride ER [K-Dur 20] 20 meq PO DAILY PRN 05/01/20 [History] Buprenorphine HCl/Naloxone HCl [Zubsolv 5.7-1.4 mg Tablet Sl] 1 tab SL BID #0 05/02/20 [Rx] Follow up Appointment(s)/Referral(s): Mitch Daniels MD [REFERRING] - 05/09/20 1:40 pm Patient Instructions/Handouts: Altered Mental Status (GEN) Activity/Diet/Wound Care/Special Instructions: Activity Limited until follow-up Continue current diet Follow up with primary care provider upon discharge Follow-up with pain management outpatient Discharge Disposition: HOME SELF-CARE
== END 2020-05-02 13:44 | disposition home or self-care (01) ==
LOC: EC 03:50 → INTOOBSV 05:31 → 3SCARD 05:31 → 5NMEDONC 14:59 → UNDODISIN 05-02 13:44
PROVIDERS: ADMIT Hospitalist; ATTEND Hospitalist
DX: R41.82 Altered mental status, unspecified (principal); F11.10 Opioid abuse, uncomplicated; J44.9 Chronic obstructive pulmonary disease, unspecified; I10 Essential (primary) hypertension; K76.0 Fatty (change of) liver, not elsewhere classified; E78.5 Hyperlipidemia, unspecified; I69.334 Monoplegia of upper limb following cerebral infarction affecting left non-dominant side; Z20.822 Contact with and (suspected) exposure to COVID-19; K21.9 Gastro-esophageal reflux disease without esophagitis; G43.909 Migraine, unspecified, not intractable, without status migrainosus; R00.1 Bradycardia, unspecified; M79.7 Fibromyalgia; I83.90 Asymptomatic varicose veins of unspecified lower extremity; G89.29 Other chronic pain; M54.2 Cervicalgia; M54.9 Dorsalgia, unspecified; H91.92 Unspecified hearing loss, left ear; M19.90 Unspecified osteoarthritis, unspecified site; F32.9 Major depressive disorder, single episode, unspecified; F41.9 Anxiety disorder, unspecified; F17.200 Nicotine dependence, unspecified, uncomplicated; Z91.018 Allergy to other foods; Z79.51 Long term (current) use of inhaled steroids; Z79.899 Other long term (current) drug therapy; Z88.6 Allergy status to analgesic agent; Z88.8 Allergy status to other drugs, medicaments and biological substances; Z98.84 Bariatric surgery status; Z98.1 Arthrodesis status; Z98.891 History of uterine scar from previous surgery; Z98.51 Tubal ligation status; Z98.818 Other dental procedure status; Z98.890 Other specified postprocedural states; Z95.2 Presence of prosthetic heart valve; Z87.440 Personal history of urinary (tract) infections; Z87.19 Personal history of other diseases of the digestive system; Z96.651 Presence of right artificial knee joint; Z82.49 Family history of ischemic heart disease and other diseases of the circulatory system; Z91.09 Other allergy status, other than to drugs and biological substances; Z79.891 Long term (current) use of opiate analgesic
CPT/HCPCS: 96372 ×2; 96361; 96374; 96375; 99285; 36415; 94640 ×2; 94760; 93005; 97162; 97165; 80053; 80048; 82140; 82550; 82803; 83735; 84100; 84484; 85025; 85610; 85730; 81001; 80306; 80143; 87635; 80179; 70450; G0378 ×3; G0480; J1200; J2310; J1650 ×2; 80320

== ENCOUNTER → 2020-05-17 | Outpatient (CLI) | payer MEDICARE ==
--- NOTE | 2020-05-18 07:12 | FL ---
Modified barium swallow. HISTORY: Dysphagia. Modified barium swallow was performed with the department of speech pathology. The patient was prese nted with various consistencies of barium. There is no evidence for aspiration or penetration. Full report is to follow from the department of speech pathology. Impression: Normal study.
== END ==
LOC: RADFLMAIN 11:08
PROVIDERS: ATTEND Internal Medicine
DX: R13.10 Dysphagia, unspecified (principal)
CPT/HCPCS: 74230

== ENCOUNTER → 2020-06-05 | Outpatient (CLI) | payer MEDICARE ==
--- NOTE | 2020-06-05 15:02 | P.PN ---
Subjective Progress Note Date: 06/05/20 This is a 59-year-old lady with history of neck pain with radiation to the upper extremities down to the hands with numbness and tingling in both arms. The patient had 2 cervical spinal fusions previously. He does have the cervical epidural steroid injection, currently complaining of severe neck pain with radiation to the upper extremity associated with numbness and tingling sensation mostly to the left upper extremity, and she has some left upper extremity weakness, she is able to ambulate on her own, patient had nerve conduction study done recently and showed that patient had bilateral median nerve compression and she had the bilateral median nerve mononeuropathy, she was evaluated by Dr. Farzad gonzalez spine surgeon and he referred her to have left side C4 5 transforaminal epidural steroid injection Objective - Vital Signs Vital signs: Vital Signs Temp 98.0 F 06/05/20 14:13 Pulse 102 H 06/05/20 14:13 Resp 18 06/05/20 14:13 BP 126/85 06/05/20 14:13 Pulse Ox 96 06/05/20 14:13 - Exam Physical Examinations : -Constitutiona : Cooperative , not in acute distress . -HEENT : nech : supple , no Lymphadenopathy , normal thyroid size . : eyes : no ptosis , no icterus, no photophobia . - neurologic : Cranial nerve II to XII intact , no focal neurological deffecit . -psychatric : alert , oriented X 3 , appropriate affect , intact judgment and insight . -Lymphatic : no Lymphadenopathy . - musculoskeltal : Cervical Spine motor stregnth in the deltoid and biceps, normal right side , normal Left side motor stregnth biceps and the wrist extensors normal right side , decreased 4/5 left side . motor stregnth in the triceps muscle . normal Right side , 4/5 Left side deep tendon reflexes normal at the biceps , normal at Brachioradialis , normal at triceps. cervical facet loading test: Positive Bilaterally Spurling test= positive Right , positive left. Neck distraction test= positive Right , positive left. Sydney sign= positive right, positive left . Lumber spine moter stegnth lower extremities ,thigh and legs 5/5 Right side , 5/5 Left side Nerve conduction study done by Dr. 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 2-cervical radiculopathy. 3-cervical spinal stenosis. Patient could benefit from a third C45 transforaminal epidural steroid injection x2 . Then after that she could follow up with Dr. Duong - RS measures = - Patient's medications are documented in the chart. -Tobacco use is negative and counseling.Given. -Patient's has not received pneumococcal vaccine. -Advanced care planning discussed, patient not eligible. -Opiate contract not signed. -Pain positive and follow-up visit/procedure is scheduled. -Patient's blood pressure measured [ 126/85 ] , and documented in the record ,and patient will follow up with the primary care. -Patient's weight was measured and body mass index [ 24.4 ] within the normal limits and counseling was done. and patient instructed to follow-up with the primary care physician. -Patient was not identified as an unhealthy alcohol user Time with Patient: Less than 30
== END ==
CPT/HCPCS: 99211

== ENCOUNTER 2020-06-27 11:25 | Day surgery (SDC) | payer MEDICARE ==
[2020-06-22 15:54] VITALS: BMI 24.2
[2020-06-27] MEDS: LACTATED RINGERS 1,000 ML IV SCH ×2 (11:50→12:01)
[2020-06-27 11:57] VITALS: RESP 16; TEMP 97
[2020-06-27] MEDS ORDERED: DEXAMETHASONE SOD PHOSPHATE 10 MG/ML 1 ML VIAL ONE (12:43)
[2020-06-27] MEDS ORDERED: MIDAZOLAM 2 MG/2 ML VIAL ONE (12:43)
[2020-06-27] MEDS ORDERED: fentaNYL (PF) 50 MCG/ML 2 ML AMP ONE (12:43)
[2020-06-27] MEDS ORDERED: IOPAMIDOL M200 10 ML VIAL ONE (12:43)
--- NOTE | 2020-06-27 13:07 | P.PCN ---
Date of Procedure: 06/27/20 Procedure(s) Performed: PREOPERATIVE DIAGNOSIS:1- Cervical radiculopathy . 2-cervical spinal stenosis POSTOPERATIVE DIAGNOSIS: Same as preoperative diagnoses. PROCEDURE 1. Transforaminal epidural steroid injection under fluoroscopic guidance at left C4-5 level. (Fluoroscopy images stored on file in the radiology Department ) ANESTHESIA: Local with 1% lidocaine 3 ml , moderate sedation with intravenous Versed 2 mg and fentanyle 100 micrograms. EBL: Minimal PROCEDURE INDICATION: The patient with severe neck pain and radiculopathy to the upper extremity , the symptoms unresponsive to conservative treatment. PROCEDURE DESCRIPTION / TECHNIQUE: The patient was seen and identified in the preoperative area. Risks, benefits, complications, and alternatives were discussed with the patient. The patient agreed to proceed with the procedure and signed the consent. IV was started, and vital signs were stable. Patient was taken to the OR and time out was completed. The patient was placed in the supine position on procedure table . The cervical area was prepped and draped in the usual sterile fashion. Critical pause was taken. Vital signs were closely monitored during the procedure. Conscious sedation was used during the procedure to decrease patient s anxiety. Using oblique fluoroscopy, the Left C4-5 level was identified, in the lateral view , the skin and deeper tissues just below was localized with 1% lidocaine. Subsequently, a 22-gauge 3.5-inch spinal needle was advanced under a tunneled view fluoroscopic guidance just underneath the foraminotomy of at the left C4-5 Under lateral fluoroscopy, the needle was then advanced to the posterior border of the interforaminal space. After negative aspiration of CSF and blood and with no paresthesias, 1 mL Isovue 200 contrast dye was injected excellent epidurogram , 2 mL of block solution containing 10 mg Dexamethasone and 1 mL of 0.9% normal saline PF was injected. Needle was removed . At the end of the procedure, skin was cleansed, and bandages were applied. COMPLICATIONS:none DISPOSITION / PLANS: The patient was placed in a supine position and transferred to the recovery area in a stable condition for observation. There was no evidence of lower extremity motor or sensory deficit after the procedure. Patient was discharged from the recovery room after meeting discharge criteria. Home discharge instructions were given to the patient by the staff. The patient was reexamined prior to discharge.
[2020-06-27 13:25] VITALS: BP 119/78; PULSE 82
[2020-06-27] MEDS ORDERED: IV FLUID CONTINUATION 1,000 ML IV ONE (13:25)
--- NOTE | 2020-06-27 13:48 | FL ---
Fluoroscopy INDICATION: Pain FINDINGS: Fluoroscopy time: 3 seconds. Images obtained: 1. IMPRESSIONS: 1. Documentation of fluoroscopy.
== END 2020-06-27 13:43 | disposition home or self-care (01) ==
LOC: ORPAIN 11:25
PROVIDERS: ATTEND Specialist
DX: M48.02 Spinal stenosis, cervical region (principal); M54.12 Radiculopathy, cervical region
CPT/HCPCS: 64479; J2250; J1100; J3010; Q9966; 64483; 99152

== ENCOUNTER → 2020-06-30 | Outpatient (CLI) | payer MEDICARE ==
--- NOTE | 2020-07-03 10:22 | MM ---
Reason for exam: screening (asymptomatic). Last mammogram was performed 5 years and 1 month ago. History: Patient is postmenopausal. Physical Findings: A clinical breast exam by your physician is recommended on an annual basis and results should be correlated with mammographic findings. MG 3D Screening Mammo W/Cad Bilateral CC and MLO view(s) were taken. Prior study comparison: June 06, 2015, left breast MG work up mamm w CAD LT. June 02, 2015, bilateral MG screening mammo w CAD. Benign appearing bilateral calcifications. No significant changes when compared with prior studies. ASSESSMENT: Benign, BI-RAD 2 RECOMMENDATION: Routine screening mammogram of both breasts in 1 year.
== END | disposition home or self-care (01) ==
LOC: RADMAMWWP 14:21
PROVIDERS: ATTEND Internal Medicine
DX: Z12.31 Encounter for screening mammogram for malignant neoplasm of breast (principal); Z78.0 Asymptomatic menopausal state
CPT/HCPCS: 77063; 77067

== ENCOUNTER → 2020-07-12 | Outpatient (CLI) | payer MEDICARE ==
--- NOTE | 2020-07-12 14:26 | P.PN ---
Subjective Progress Note Date: 07/12/20 This is a 59-year-old lady with history of 2 cervical spine surgeries in the anterior approach .the patient had multiple injections on the cervical spine including interlaminar epidural steroid injection and lately transforaminal epidural steroid injection at the C4-C5 level on the left side. The last injection gave 100% of pain relief for about 2 weeks and then her pain started to come back gradually. The patient takes Zubsolv(Buprenorphine/naloxone) for her pain .the patient is not able to get this medication anymore because her physician is under investigation . Patient denies new-onset weakness, bowel/bladder incontinence, or any other signs or symptoms of cauda equina syndrome. There are no signs of acute intoxication, and no indications of medication diversion or overuse. In addition to above, 13-point review of systems is also negative for chest pain, shortness of breath, changes in vision, changes in hearing, new onset weakness, abdominal pain, diarrhea, extreme fatigue, malaise, fever, skin changes, homicidal or suicidal ideation, or bowel or bladder incontinence. Vital Signs: Reviewed in EMR Gen: AAOx3, NAD HEENT: PERRLA,hearing grossly normal Pulm: resp unlabored Neck: supple, trachea midline Neuro exam of the upper extremities: Normal muscle strength bilaterally Straight leg raising test: Claude's test: Range of motion of the cervical spine: Decreased especially to left rotation and extension Facet loading test: Tenderness in the paravertebral musculature: Significant tenderness in the left cervical paravertebral musculature and left trapezius muscle Neuro: CN II-XII grossly intact, Imaging: Reviewed in EMR/chart Assessment: Chronic neck pain status post 2 cervical fusions Cervical radiculopathy Treatment with Buprenorphine/naloxone Plan: 1. Explanation: Opioid and psychological risk scores were reviewed. Diagnoses, prognoses, and multiple treatment options including but not limited to physical therapy, interventional therapies, adjuvant medical therapies, narcotic medication therapies, and surgery were discussed with the patient and all questions were answered to the patient's satisfaction. 2. Opioid agreement: Signed with the patient and the patient is warned not to use opioids while driving or before driving and not to combine opioids with benzodiazepines or alcohol. 3. Counseling: The patient was counseled extensively on SMOKING CESSATION, BODY MASS INDEX, EXERCISE. Specifically, the patient was instructed regarding the importance of smoking cessation, obesity, and exercise in the context of both chronic pain and overall health. 4. Procedures: The patient may benefit from another cervical transforaminal epidural steroid injection at the C4 5 level on the left side under fluoroscopic guidance 5. Consultations: None 6. Investigations: None 7. Medications: None prescribed. The patient will be referred to Dr. Mazariegos 8. Disposition: Proceed with the above-mentioned procedure as soon as possible 9. Maps were reviewed and were appropriate. Objective - Vital Signs Vital signs: Vital Signs Temp 98.2 F 07/12/20 13:58 Pulse 95 07/12/20 13:58 Resp 18 07/12/20 13:58 BP 145/92 07/12/20 13:58 Pulse Ox 97 07/12/20 13:58
== END ==
CPT/HCPCS: 99211

== ENCOUNTER 2020-08-08 11:51 | Day surgery (SDC) | payer MEDICARE ==
[2020-08-08 12:34] VITALS: TEMP 97.5
[2020-08-08] MEDS: LACTATED RINGERS 1,000 ML IV SCH ×2 (12:40→13:10)
[2020-08-08] MEDS ORDERED: fentaNYL (PF) 50 MCG/ML 2 ML AMP ONE (13:11)
[2020-08-08] MEDS ORDERED: MIDAZOLAM 2 MG/2 ML VIAL ONE (13:11)
[2020-08-08] MEDS ORDERED: IOPAMIDOL M200 10 ML VIAL ONE (13:11)
[2020-08-08] MEDS ORDERED: DEXAMETHASONE SOD PHOSPHATE 10 MG/ML 1 ML VIAL ONE (13:11)
--- NOTE | 2020-08-08 13:28 | P.PCN ---
Date of Procedure: 08/08/20 Procedure(s) Performed: PREOPERATIVE DIAGNOSIS:1- Cervical radiculopathy . 2-cervical spinal stenosis POSTOPERATIVE DIAGNOSIS: Same as preoperative diagnoses. PROCEDURE 1. Transforaminal epidural steroid injection under fluoroscopic guidance at left C4-5 level. (Fluoroscopy images stored on file in the radiology Department ) ANESTHESIA: Local with 1% lidocaine 3 ml , moderate sedation with intravenous Versed 3 mg and fentanyle 100 micrograms. EBL: Minimal PROCEDURE INDICATION: The patient with severe neck pain and radiculopathy to the upper extremity , the symptoms unresponsive to conservative treatment. PROCEDURE DESCRIPTION / TECHNIQUE: The patient was seen and identified in the preoperative area. Risks, benefits, complications, and alternatives were discussed with the patient. The patient agreed to proceed with the procedure and signed the consent. IV was started, and vital signs were stable. Patient was taken to the OR and time out was completed. The patient was placed in the supine position on procedure table . The cervical area was prepped and draped in the usual sterile fashion. Critical pause was taken. Vital signs were closely monitored during the procedure. Conscious sedation was used during the procedure to decrease patient s anxiety. Using oblique fluoroscopy, the Left C4-5 level was identified, in the lateral view , the skin and deeper tissues just below was localized with 1% lidocaine. Subsequently, a 25-gauge 2-inch spinal needle was advanced under a tunneled view fluoroscopic guidance just underneath the foraminotomy of at the left C4-5 Under lateral fluoroscopy, the needle was then advanced to the posterior border of the interforaminal space. After negative aspiration of CSF and blood and with no paresthesias, 1 mL Isovue 200 contrast dye was injected excellent epidurogram , 2 mL of block solution containing 20 mg Dexamethasone and 1 mL of 0.9% normal saline PF was injected. Needle was removed . At the end of the procedure, skin was cleansed, and bandages were applied. COMPLICATIONS:none DISPOSITION / PLANS: The patient was transferred to the recovery area in a stable condition for observation. There was no evidence of lower extremity motor or sensory deficit after the procedure. Patient was discharged from the recovery room after meeting discharge criteria. Home discharge instructions were given to the patient by the staff. The patient was reexamined prior to discharge.
[2020-08-08] MEDS ORDERED: IV FLUID CONTINUATION 1,000 ML IV ONE ×2 (13:33)
[2020-08-08 13:59] VITALS: BP 124/75; PULSE 85; RESP 18
--- NOTE | 2020-08-08 16:43 | FL ---
EXAMINATION TYPE: FL guided pain mgmt statistic DATE OF EXAM: 08/08/2020 CLINICAL HISTORY: Neck pain. TECHNIQUE: Fluoroscopy. COMPARISON: None. FINDINGS: Fluoroscopic guidance was provided during pain relief procedure performed by Dr. Mitchell . A total of 11 seconds of fluoroscopic time was utilized during the procedure and 1 spot images are acquired. Single image acquired shows needle localization near cervicothoracic junction with contra st injection. IMPRESSION: As Above.
== END 2020-08-08 14:02 | disposition home or self-care (01) ==
LOC: ORPAIN 11:51
PROVIDERS: ATTEND Specialist
DX: M48.02 Spinal stenosis, cervical region (principal); M54.12 Radiculopathy, cervical region; Z88.6 Allergy status to analgesic agent; Z88.5 Allergy status to narcotic agent; Z88.8 Allergy status to other drugs, medicaments and biological substances
CPT/HCPCS: 64479; J2250; J1100; J3010; Q9966; 62321; 99152

== ENCOUNTER 2021-01-01 07:25 | Day surgery (SDC) | payer MEDICARE ==
[2020-12-28 15:20] VITALS: BMI 25.2
--- NOTE | 2021-01-01 07:46 | P.GSHP ---
History of Present Illness H&P Date: 01/01/21 CHIEF COMPLAINT: GERD HISTORY OF PRESENT ILLNESS: The patient is a 60-year-old female who presents reports gastroesophageal reflux disease. Upper endoscopy was offered for further evaluation and management. PAST MEDICAL HISTORY: Please see list. PAST SURGICAL HISTORY: Please see list. MEDICATIONS: Please see list. ALLERGIES: Please see list. SOCIAL HISTORY: No illicit drug use FAMILY HISTORY: No reports of Crohn disease or ulcerative colitis. REVIEW OF ORGAN SYSTEMS: CONSTITUTIONAL: No reports of fevers or chills. GI: Denies any blood in stools or constipation. PHYSICAL EXAM: VITAL SIGNS: Stable GENERAL: Well-developed and pleasant in no acute distress. HEENT: No scleral icterus. Extraocular movements grossly intact. Moist buccal mucosa. NECK: Supple without lymphadenopathy. CHEST: Unlabored respirations. Equal bilateral excursions. CARDIOVASCULAR: Regular rate and rhythm. Distal 2+ pulses. ABDOMEN: Soft, nondistended. MUSCULOSKELETAL: No clubbing, cyanosis, or edema. ASSESSMENT: 1. Gastroesophageal reflux disease PLAN: 1. 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 History of Any Multi-Drug Resistant Organisms: None Reported Past Surgical History: Appendectomy, Back Surgery, Bariatric Surgery, Bladder Surgery, Cardiac Valve Replacement, Section, Cholecystectomy, Joint Replacement, Tubal Ligation Additional Past Surgical History / Comment(s): EGD, EGDs with dilation/removed migrated staple, colonoscopy/benign polyp, Cherie-en-Y, laparotomies d/t SBO with lysis of adhesions, multiple low back surgeries including spinal cord stimulator since removed, cervical fusion, total R knee arthroplasty 03/14/20, bilateral knee injections, bladder suspension, cardiac valve replacement, PAIN CLINIC PROCEDURES Past Anesthesia/Blood Transfusion Reactions: Previous Problems w/ Anesthesia, Postoperative Nausea & Vomiting (PONV) Additional Past Anesthesia/Blood Transfusion Reaction / Comment(s): Slow to wake up from anesthesia Smoking Status: Former smoker - Past Family History Sister(s) Family Medical History: Myocardial Infarction (HI) Additional Family Medical History / Comment(s): at age 43 of HI. Mother Family Medical History: Myocardial Infarction (HI) Additional Family Medical History / Comment(s): Mother at age 62 of HI. Father Family Medical History: Myocardial Infarction (HI) Additional Family Medical History / Comment(s): Father in his 40's of a HI. Medications and Allergies Home Medications Medication Instructions Recorded Confirmed Type Albuterol Nebulized [Ventolin 2.5 mg INHALATION RT-TID 07/07/13 12/28/20 History Nebulized] Venlafaxine HCl [Effexor XR] 150 mg PO BID 01/12/15 12/28/20 History Pantoprazole [Protonix] 40 mg PO BID #60 tab 08/21/18 12/28/20 Rx Calcium Carbonate [Calcium] 1,200 mg PO DAILY 12/10/18 12/28/20 History Cholecalciferol [Vitamin D3 (25 50 mcg PO DAILY 12/10/18 12/28/20 History Mcg = 1000 Iu)] Albuterol Sulfate [Albuterol 2 puff INHALATION RT-QID PRN 11/12/19 12/28/20 History Sulfate Hfa] Furosemide [Lasix] 20 mg PO BID 11/12/19 12/28/20 History L.acidoph,Paracasei, B.lactis 2 cap PO DAILY 11/12/19 12/28/20 History [Probiotic] Metoprolol Succinate (ER) [Toprol 50 mg PO DAILY 11/12/19 12/28/20 History XL] Fluticasone/Umeclidin/Vilanter 1 puff INHALATION RT-DAILY 03/03/20 12/28/20 History [Trelegy Ellipta 200-62.5-25] Cranberry Fruit Extract [Cranberry] 1,000 mg PO DAILY 05/01/20 12/28/20 History Magnesium Gluconate [Magonate] 1,000 mg PO DAILY 05/01/20 12/28/20 History Multivitamins, Thera [Multivitamin 1 tab PO BID 05/01/20 12/28/20 History (formulary)] Potassium Chloride ER [K-Dur 20] 20 meq PO Q2D 05/01/20 12/28/20 History Mv-Min/Folic/Vit K/Lut/Yvxz256 1 each PO DAILY 06/02/20 12/28/20 History [Alive Women's 50 Plus Tablet] methocarbamoL [Robaxin] 750 mg PO TID 06/02/20 12/28/20 History Egiux-C-Kpwvdmgfjfhho [Beano] 600 unit PO TID 10/25/20 12/28/20 History Ondansetron [Zofran ODT] 4 mg PO TID PRN 10/25/20 12/28/20 History SUMAtriptan SUCCINATE [Imitrex] 25 mg PO DIRECTED PRN 10/25/20 12/28/20 History Acetaminophen [Tylenol Arthritis] 2 tab PO BID 12/28/20 12/28/20 History Buprenorphine HCl/Naloxone HCl 1 tab SUBLINGUAL QID 12/28/20 12/28/20 History [Zubsolv 5.7-1.4 mg Tablet Sl] Cyanocobalamin [Vitamin B-12] 400 mcg PO DAILY 12/28/20 12/28/20 History Lidocaine 5% Patch [Lidoderm] 1 patch TOPICAL DAILY 12/28/20 12/28/20 History Ondansetron HCl [Zofran] 4 mg PO DAILY PRN 12/28/20 12/28/20 History Sleep Aid 1 tab PO HS 12/28/20 12/28/20 History Sucralfate [Carafate] 1 gm PO ACHS 12/28/20 12/28/20 History Allergies Allergy/AdvReac Type Severity Reaction Status Date / Time aspirin Allergy has ulcer Verified 01/01/21 07:43 codeine Allergy Unknown Verified 01/01/21 07:43 temazepam [From Restoril] Allergy nightmares Verified 01/01/21 07:43 ibuprofen [From Motrin] AdvReac Unknown Verified 01/01/21 07:43 Mushroom AdvReac Nausea & Verified 01/01/21 07:43 Vomiting
[2021-01-01] MEDS: LACTATED RINGERS 1,000 ML IV SCH ×2 (08:00→08:05)
[2021-01-01] MEDS ORDERED: ONDANSETRON 4 MG/2 ML VIAL ONE (08:08)
[2021-01-01 08:13] VITALS: TEMP 96.9
[2021-01-01] MEDS ORDERED: PROPOFOL 10 MG/ML 20 ML VIAL IV ONE (08:24)
[2021-01-01] MEDS ORDERED: LIDOCAINE 1% INJ 10MG/ML (20 ML MDV) ONE (08:24)
--- NOTE | 2021-01-01 08:47 | P.PCN ---
Date of Procedure: 01/01/21 Description of Procedure: PREOPERATIVE DIAGNOSIS: Gastroesophageal reflux disease Epigastric abdominal pain Dysphagia Tobacco abuse disorder History of gastrojejunal ulcer POSTOPERATIVE DIAGNOSIS: Gastroesophageal reflux disease Epigastric abdominal pain Dysphagia Tobacco abuse disorder History of gastrojejunal ulcer Candidiasis of the esophagus Upper esophageal stenosis OPERATION: Esophagogastroduodenoscopy with rigid dilator over the guidewire 54 Fr with dilation for upper esophageal stenosis Esophagogastroduodenoscopy with cold forceps biopsies of the upper esophagus SURGEON: Rayne Fleming MD ANESTHESIA: MAC. INDICATIONS: The patient is a 60-year-old female who presents with a history of gastroesophageal reflux disease, dysphagia with abdominal pain. Benefits and risks of the procedure were described. Informed consent was obtained. DESCRIPTION: The patient was brought into the endoscopy suite and laid in the left lateral decubitus position. After a timeout was confirmed, the procedure was initiated. An Olympus gastroscope was passed into the posterior oropharynx where an upper esophageal stenosis was identified. The scope was passed down to the distal esophagus. To address the upper esophageal stenosis, rigid dilator over guidewire was selected. Next using an Kazakh rigid dilator, a guidewire was placed through the gastroscope. Next the scope was withdrawn. A 54-Tongan rigid Kazakh dilator was passed carefully along the posterior oropharynx to 45 cm and left in place for 2-3 minutes stretch. The dilator was withdrawn including the guidewire. The scope was reentered along the posterior oropharynx with no findings of full- thickness tear of the upper esophageal sphincter. Additional findings below. The scope was advanced the Cherie limb 60 cm from the incisors. The gastrojejunal anastomosis was without ulceration. Small 2 cm hiatal hernia was identified. Moderate plaques were identified of the upper esophagus for yeast. Biopsies of cold forceps were obtained. No full-thickness injury was encountered. The GI tract was desufflated. The patient tolerated the procedure well. FINDINGS: Upper esophageal stenosis dilated 54-Tongan rigid dilator Diaphragmatic hiatus at 42 cm from the incisors Squamocolumnar junction 40 cm from the incisors. Moderate plaques upper esophagus for yeast biopsies obtained LA grade A erosive esophagitis RECOMMENDATIONS: Tobacco cessation and counseling advised, and performed for 3 minutes Decrease Protonix to 40 mg daily Plan - Discharge Summary Discharge Rx Participant: No New Discharge Prescriptions: New Pantoprazole [Protonix] 40 mg PO DAILY #14 tab Continue Albuterol Nebulized [Ventolin Nebulized] 2.5 mg INHALATION RT-TID Venlafaxine HCl [Effexor XR] 150 mg PO BID Calcium Carbonate [Calcium] 1,200 mg PO DAILY Cholecalciferol [Vitamin D3 (25 Mcg = 1000 Iu)] 50 mcg PO DAILY Albuterol Sulfate [Albuterol Sulfate Hfa] 2 puff INHALATION RT-QID PRN PRN Reason: Shortness Of Breath Or Wheezing Metoprolol Succinate (ER) [Toprol XL] 50 mg PO DAILY Furosemide [Lasix] 20 mg PO BID L.acidoph,Paracasei, B.lactis [Probiotic] 2 cap PO DAILY Fluticasone/Umeclidin/Vilanter [Trelegy Ellipta 200-62.5-25] 1 puff INHALATION RT-DAILY Potassium Chloride ER [K-Dur 20] 20 meq PO Q2D Multivitamins, Thera [Multivitamin (formulary)] 1 tab PO BID Magnesium Gluconate [Magonate] 1,000 mg PO DAILY Cranberry Fruit Extract [Cranberry] 1,000 mg PO DAILY Ondansetron [Zofran ODT] 4 mg PO TID PRN PRN Reason: Nausea SUMAtriptan SUCCINATE [Imitrex] 25 mg PO DIRECTED PRN PRN Reason: Migraine Headache Mgksu-K-Kdrabuiylfxju [Beano] 600 unit PO TID Acetaminophen [Tylenol Arthritis] 2 tab PO BID Cyanocobalamin [Vitamin B-12] 400 mcg PO DAILY Ondansetron HCl [Zofran] 4 mg PO DAILY PRN PRN Reason: Nausea And Vomiting Lidocaine 5% Patch [Lidoderm 5% Patch] 1 patch TOPICAL DAILY Buprenorphine HCl/Naloxone HCl [Zubsolv 5.7-1.4 mg Tablet Sl] 1 tab SUBLINGUAL QID methocarbamoL [Robaxin] 750 mg PO TID Mv-Min/Folic/Vit K/Lut/Uoom382 [Alive Women's 50 Plus Tablet] 1 each PO DAILY Sucralfate [Carafate] 1 gm PO ACHS Sleep Aid 1 tab PO HS Discontinued Pantoprazole [Protonix] 40 mg PO BID #60 tab Discharge Medication List Albuterol Nebulized [Ventolin Nebulized] 2.5 mg INHALATION RT-TID 07/07/13 [History] Venlafaxine HCl [Effexor XR] 150 mg PO BID 01/12/15 [History] Calcium Carbonate [Calcium] 1,200 mg PO DAILY 12/10/18 [History] Cholecalciferol [Vitamin D3 (25 Mcg = 1000 Iu)] 50 mcg PO DAILY 12/10/18 [History] Albuterol Sulfate [Albuterol Sulfate Hfa] 2 puff INHALATION RT-QID PRN 11/12/19 [History] Furosemide [Lasix] 20 mg PO BID 11/12/19 [History] L.acidoph,Paracasei, B.lactis [Probiotic] 2 cap PO DAILY 11/12/19 [History] Metoprolol Succinate (ER) [Toprol XL] 50 mg PO DAILY 11/12/19 [History] Fluticasone/Umeclidin/Vilanter [Trelegy Ellipta 200-62.5-25] 1 puff INHALATION RT-DAILY 03/03/20 [History] Cranberry Fruit Extract [Cranberry] 1,000 mg PO DAILY 05/01/20 [History] Magnesium Gluconate [Magonate] 1,000 mg PO DAILY 05/01/20 [History] Multivitamins, Thera [Multivitamin (formulary)] 1 tab PO BID 05/01/20 [History] Potassium Chloride ER [K-Dur 20] 20 meq PO Q2D 05/01/20 [History] Mv-Min/Folic/Vit K/Lut/Rfci342 [Alive Women's 50 Plus Tablet] 1 each PO DAILY 0 06/02/20 [History] methocarbamoL [Robaxin] 750 mg PO TID 06/02/20 [History] Fjtfo-B-Pxxwlenpvuooy [Beano] 600 unit PO TID 10/25/20 [History] Ondansetron [Zofran ODT] 4 mg PO TID PRN 10/25/20 [History] SUMAtriptan SUCCINATE [Imitrex] 25 mg PO DIRECTED PRN 10/25/20 [History] Acetaminophen [Tylenol Arthritis] 2 tab PO BID 12/28/20 [History] Buprenorphine HCl/Naloxone HCl [Zubsolv 5.7-1.4 mg Tablet Sl] 1 tab SUBLINGUAL QID 12/28/20 [History] Cyanocobalamin [Vitamin B-12] 400 mcg PO DAILY 12/28/20 [History] Lidocaine 5% Patch [Lidoderm 5% Patch] 1 patch TOPICAL DAILY 12/28/20 [History] Ondansetron HCl [Zofran] 4 mg PO DAILY PRN 12/28/20 [History] Sleep Aid 1 tab PO HS 12/28/20 [History] Sucralfate [Carafate] 1 gm PO ACHS 12/28/20 [History] Pantoprazole [Protonix] 40 mg PO DAILY #14 tab 01/01/21 [Rx] [facility]ment[facility]Ref[facility] [place] [facility] - [facility]21 Patient Instructions/Handouts: How to Stop Smoking (DC), Electronic Cigarettes and Your Health (ED), Cigarette Smoking and Your Health (GEN), Esophageal Dilation (DC) Activity/Diet/Wound Care/Special Instructions: CAN HAVE ZOFRAN AGAIN 2PM. Discharge Disposition: HOME SELF-CARE
[2021-01-01 09:09] VITALS: BP 118/80; PULSE 82; RESP 20
== END 2021-01-01 09:32 | disposition home or self-care (01) ==
LOC: ORWHC2ENDO 07:25
PROVIDERS: ATTEND Surgery Plastic and Reconstructive Surgery
DX: K22.2 Esophageal obstruction (principal); B37.81 Candidal esophagitis; K21.9 Gastro-esophageal reflux disease without esophagitis; J44.9 Chronic obstructive pulmonary disease, unspecified; M79.7 Fibromyalgia; K44.9 Diaphragmatic hernia without obstruction or gangrene; K22.70 Barrett's esophagus without dysplasia; H91.90 Unspecified hearing loss, unspecified ear; E78.5 Hyperlipidemia, unspecified; I11.0 Hypertensive heart disease with heart failure; I50.9 Heart failure, unspecified; K76.0 Fatty (change of) liver, not elsewhere classified; G89.29 Other chronic pain; M54.9 Dorsalgia, unspecified; M54.2 Cervicalgia; R41.3 Other amnesia; M19.90 Unspecified osteoarthritis, unspecified site; I69.354 Hemiplegia and hemiparesis following cerebral infarction affecting left non-dominant side; Z98.84 Bariatric surgery status; Z98.891 History of uterine scar from previous surgery; Z95.2 Presence of prosthetic heart valve; Z87.891 Personal history of nicotine dependence; Z87.440 Personal history of urinary (tract) infections; Z98.1 Arthrodesis status; Z98.890 Other specified postprocedural states; Z82.49 Family history of ischemic heart disease and other diseases of the circulatory system; Z79.51 Long term (current) use of inhaled steroids; Z79.899 Other long term (current) drug therapy; Z88.6 Allergy status to analgesic agent; Z88.5 Allergy status to narcotic agent; Z88.8 Allergy status to other drugs, medicaments and biological substances; Z91.018 Allergy to other foods
CPT/HCPCS: 88305; 88312; 43239; 43248; J2405; J2001; J2704; 43249

== ENCOUNTER → 2021-06-20 | Outpatient (CLI) | payer MEDICARE, OTHER ==
--- NOTE | 2021-06-20 09:11 | US ---
EXAMINATION TYPE: US abdomen complete DATE OF EXAM: 06/20/2021 COMPARISON: CT abdomen and pelvis December 15, 2018 CLINICAL HISTORY: R10.13 EPIGASTRIC PAIN. EXAM MEASUREMENTS: Liver Length: 14.6 cm Gallbladder Wall: Surgically absent CBD: 1.3 cm Spleen: 9.7 cm Right Kidney: 9.9 x 3.1 x 4.8 cm Left Kidney: 9.8 x 4.0 x 4.6 cm Pancreas: Somewhat obscured by bowel gas, duct appears dilate at 4mm Liver: wnl Gallbladder: Surgically absent Evidence for sonographic Azevedo's sign: no CBD: dilated Spleen: splenule measuring 1.9 x 1.3 x 1.8cm Right Kidney: No hydronephrosis or masses seen Left Kidney: No hydronephrosis or masses seen Upper IVC: wnl Abd Aorta: Some portions obscured by overlying bowel gas including bifurcation, atherosclerotic neil es The liver is homogenous. The intrahepatic portion of the IVC and visualized abdominal aorta are with in normal limits. Gallbladder noted surgically absent. Common bile duct is mildly dilated but not si gnificantly changed from 2019 CT. The visualized portions of the pancreas are homogenous. Prominent duct mildly dilated at 4 mm in the body warrants follow-up. The spleen is unremarkable. Kidneys are symmetric and free of hydronephrosis. No renal lesions are seen. IMPRESSION: No definitive acute findings are identified. I would advise repeat contrast-enhanced CT e valuation due to mild pancreatic ductal dilatation.
== END | disposition home or self-care (01) ==
LOC: RADUSWWP 07:52
PROVIDERS: ATTEND Internal Medicine Gastroenterology
DX: K83.8 Other specified diseases of biliary tract (principal)
CPT/HCPCS: 76700

== ENCOUNTER → 2021-07-05 | Outpatient (CLI) | payer MEDICARE, OTHER ==
--- NOTE | 2021-07-06 05:26 | CT ---
EXAMINATION TYPE: CT abdomen w con DATE OF EXAM: 07/05/2021 COMPARISON: CT dated 12/15/2018 HISTORY: Epigastric pain CT DLP: 794 mGycm Automated exposure control for dose reduction was used. TECHNIQUE: Helical acquisition of images was performed from the lung bases through the top of iliac crest to include entire abdomen. CONTRAST: Performed with Oral Contrast and with IV Contrast, patient injected with 100 ml mL of Isovue 300. FINDINGS: LUNG BASES: Cardiomegaly with mitral valve prosthesis and previous sternotomy wire sutures. LIVER/GB: Previous cholecystectomy. Dilated central intrahepatic biliary tree and CBD measuring up to 17 mm, possibly related to post cholecystectomy status. Recommend precautionary correlation with arsen irubin level. No definite hepatic focal lesion identified. PANCREAS: Slightly atrophic with slightly dilated pancreatic duct. SPLEEN: Enlarged spleen measuring 13.4 cm. No definite splenic focal lesion. ADRENALS: No significant abnormality is seen. KIDNEYS: Grossly unremarkable kidneys. BOWEL: Previous bariatric surgery with suspected esophagojejunostomy versus gastrojejunostomy. Free flow of the ingested oral contrast down to the distal small bowel loops. No convincing evidence of cristiane wel obstruction. The small and large bowel aren't completely included in the scan. Moderate fecal nicole ding of the visualized portion of the colon. LYMPH NODES: No pathologically enlarged abdominal lymph nodes. OSSEOUS STRUCTURES: Previous L5-S1 fixation. Degenerative changes of the lower thoracic and lower [place] mbar spine. FREE AIR: No free air is visualized. OTHER: Scattered arterial atherosclerotic calcification. No free abdominal fluid. IMPRESSION: Post cholecystectomy changes as detailed above. Enlarged spleen. Other postsurgical changes and incid ental findings as detailed above.
== END | disposition home or self-care (01) ==
LOC: RADCTMAIN 12:36
PROVIDERS: ATTEND Internal Medicine Gastroenterology
DX: R16.1 Splenomegaly, not elsewhere classified (principal); Z90.49 Acquired absence of other specified parts of digestive tract
CPT/HCPCS: 74160; Q9967

== ENCOUNTER → 2021-09-07 | Outpatient (CLI) | payer MEDICARE, OTHER ==
--- NOTE | 2021-09-10 08:28 | MM ---
Reason for Exam: Screening (asymptomatic). Last mammogram was performed 1 year(s) and 2 month(s) ago. Patient History: Menarche at age 14. First Full-Term at age 23. Right ovary removed at age 45. Postmenopausal. Currently using Estrogen, starting at age 60. Risk Values: Ariella 5 year model risk: 1.3%. NCI Lifetime model risk: 6.6%. Prior Study Comparison: 06/02/2015 Bilateral Screening Mammogram, [facility]. 06/06/2015 Left Diagnostic Mammogram, [facility]. 06/30/2020 Bilateral Screening Mammogram, [facility]. Tissue Density: The breast tissue is almost entirely fat. Findings: Analyzed By CAD. Benign-appearing calcifications. There is no suspicious group of microcalcifications or new suspicious mass in either breast. Overall Assessment: Benign, BI-RAD 2 Management: Screening Mammogram of both breasts in 1 year. A clinical breast exam by your physician is recommended on an annual basis and results should be correlated with mammographic findings. Electronically signed and approved by: Cullen Cabello DO
== END | disposition home or self-care (01) ==
LOC: RADMAMWWP 14:50
PROVIDERS: ATTEND Internal Medicine
DX: Z12.31 Encounter for screening mammogram for malignant neoplasm of breast (principal); Z78.0 Asymptomatic menopausal state
CPT/HCPCS: 77063; 77067

== ENCOUNTER → 2022-05-16 | Outpatient (CLI) | payer MEDICARE, OTHER ==
--- NOTE | 2022-05-16 22:04 | CT ---
EXAMINATION TYPE: CT brain wo con DATE OF EXAM: 05/16/2022 HISTORY: hx of stroke and migraines. Dementia, memory loss, TIA. CT DLP: 1274.50 mGycm. Automated Exposure Control for Dose Reduction was Utilized. TECHNIQUE: CT scan of the head is performed without contrast. COMPARISON: CT brain April 29, 2022 FINDINGS: There is no acute intracranial hemorrhage or midline shift identified. There is mild vent ricular and sulcal prominence redemonstrated. There mild is low-attenuation in the periventricular r edemonstrated. The globes are intact and the visualized sinuses are clear. IMPRESSION: No acute intracranial hemorrhage or midline shift. There is mild diffuse age-related ce rebral atrophy and chronic small vessel ischemic change redemonstrated. No significant change from p rior CT
--- NOTE | 2022-05-16 22:15 | CT ---
EXAMINATION TYPE: CT angio head DATE OF EXAM: 05/16/2022 5:06 PM COMPARISON: None. HISTORY: hx of stroke and migraines. CT DLP: 1274.50 mGycm Automated exposure control for dose reduction was used. TECHNIQUE: Performed with IV Contrast, patient injected with 80 mL of Isovue 370. 3D reconstructed images are created on an independent workstation and reviewed.. FINDINGS: Left vertebral artery is dominant. Vertebral arteries are patent to basilar junction. There are paten t bilateral posterior communicating arteries. There is no significant focal stenosis or aneurysm in t he posterior circulation. Images of the anterior circulation show hypoplastic anterior communicating artery. There is no signif icant focal stenosis or aneurysm in the anterior circulation. IMPRESSION: No aneurysm at the level of the [place].
== END | disposition home or self-care (01) ==
LOC: RADCTMAIN 15:35
PROVIDERS: ATTEND Psychiatry & Neurology Neurology
DX: G31.1 Senile degeneration of brain, not elsewhere classified (principal); R41.3 Other amnesia; R20.0 Anesthesia of skin; G43.909 Migraine, unspecified, not intractable, without status migrainosus; I67.82 Cerebral ischemia; F03.90 Unspecified dementia, unspecified severity, without behavioral disturbance, psychotic disturbance, mood disturbance, and anxiety
CPT/HCPCS: 70496; 70450; Q9967

== ENCOUNTER → 2023-02-26 | Outpatient (CLI) | payer MEDICARE, OTHER ==
[2023-02-26 16:28] VITALS: BP 108/74; PULSE 84; TEMP 98.3; BMI 19.8
--- NOTE | 2023-02-26 17:06 | P.HPBAR ---
Bariatric H&P - History & Physicial H&P Date: 02/26/23 History & Physicial: Visit/CC: abd pain Patient initial contact: Initial weight: 120.021 kg Initial weight in pounds: 264.60 Height: 5 ft 6 in Initial BMI: 42.7 Last weight: Current weight: 55.792 kg Current weight in pounds: 123.00 Current BMI: 19.8 [place] body weight (based on NIH guidelines): 58.967 kg Excess body weight loss: 105.2% The patient is a 62 year-old F who presents for Bariatric Assessment. DATE OF SERVICE: 02/26/23 CHIEF COMPLAINT: Status post gastric bypass, ventral hernia HISTORY OF PRESENT ILLNESS: Kassy Lopez is a 62-year-old female status post gastric bypass on 11/06/2015. She is 7 years out. Presents with new complaints of abdominal pain the epigastrium and midabdomen over one year. She has lost 20+ pounds in 1 year. She started smoking again. She reports new incisional hernia and hiatal hernia recently diagnosed in the last year. She presents without records with her. She has moved [place]. Her last bariatric assessment was over 3 years ago. She denies prior CT scans. She still continues to smoke despite multiple medical intervention and discussion. She presents in consultation for abdominal pain and hernia. Her ideal body weight for 5 foot 6 inch frame is 154 pound. Her highest weight was 278 pounds, BMI 45.0. Today she comes in weighing 123 pounds from 164 pounds, 3 years ago. She has lost 41 pounds in 3 years. She has lost 155 pounds lifetime. Body mass index is reduced from 45.0 down to 19.9. Her lifetime percent excess weight loss is 125 %. PAST MEDICAL HISTORY: 1. Alfaro esophagus. 2. Gastroesophageal reflux disease 3. Osteoarthritis 4. Diabetes type 2 with gastroparesis 5. Depressive disorder. 6. Hypertensive heart disease 7. Chronic obstructive pulmonary disease 8. History of congestive heart failure. 9. Morbid obesity, BMI 45.0 10. History of intussusception 11. Cerebrovascular accident 12. Ischemic cardiomyopathy 13. Memory impairment 14. Migraines 15. Fibromyalgia 16. Colon polyps 17. Postoperative nausea or vomiting 18. Generalized anxiety disorder PAST SURGICAL HISTORY: 1. Back surgery x3 including fusion. 2. TENS unit infusion. 3. Neck fusion. 4. Right knee injections. 5. Colonoscopy. 6. Upper endoscopy. 7. Appendectomy. 8. section. 9. Cholecystectomy. 10. Tubal ligation. 11. Status post gastric bypass. 12. Cardiac catheterization. 13. Valvular replacement, 07/24/2016 14. Intussusception via laparotomy, July 2018 15. Bladder suspension 16. Joint Replacement 17. Total right knee arthroplasty MEDICATIONS: Home Medications Medication Instructions Recorded Confirmed Albuterol Nebulized [Ventolin 2.5 mg INHALATION RT-TID 07/07/13 02/26/23 Nebulized] Venlafaxine HCl [Effexor XR] 150 mg PO BID 01/12/15 02/26/23 Calcium Carbonate [Calcium] 600 mg PO DAILY 12/10/18 02/26/23 Cholecalciferol [Vitamin D3 (25 20 mcg PO DAILY 12/10/18 02/26/23 Mcg = 1000 Iu)] Albuterol Sulfate [Albuterol 2 puff INHALATION RT-QID PRN 11/12/19 02/26/23 Sulfate Hfa] Furosemide [Lasix] 20 mg PO DAILY 11/12/19 02/26/23 Metoprolol Succinate (ER) [Toprol 50 mg PO BID 11/12/19 02/26/23 XL] Cranberry Fruit Extract [Cranberry] 1,000 mg PO DAILY 05/01/20 02/26/23 Multivitamins, Thera [Multivitamin 1 tab PO DAILY 05/01/20 02/26/23 (formulary)] Potassium Chloride ER [K-Dur 20] 10 meq PO Q2D 05/01/20 02/26/23 methocarbamoL [Robaxin-750] 750 mg PO QID 06/02/20 02/26/23 Ondansetron [Zofran ODT] 4 mg PO TID PRN 10/25/20 02/26/23 SUMAtriptan succinate [Imitrex] 25 mg PO DIRECTED PRN 10/25/20 02/26/23 Acetaminophen [Tylenol Arthritis] 2 tab PO BID 12/28/20 02/26/23 Lidocaine 5% Patch [Lidoderm 5% 1 patch TOPICAL DAILY 12/28/20 02/26/23 Patch] Sleep Aid 1 tab PO HS 12/28/20 02/26/23 Ascorbic Acid [Vitamin C] 1 tab PO DAILY 02/26/23 02/26/23 Buprenorphine HCl/Naloxone HCl 1 each SL QID 02/26/23 02/26/23 [Suboxone 4 mg-1 mg Sl Film] Dicyclomine [Bentyl] 10 mg PO QID 02/26/23 02/26/23 Fluticasone/Vilanterol [Breo 1 inhalation PO Q24HR 02/26/23 02/26/23 Ellipta 100-25 Mcg Inhaler] Lactulose 10 gm PO BID 02/26/23 02/26/23 Latanoprost [Latanoprost 0.005%] 1 drop BOTH EYES HS 02/26/23 02/26/23 Lemon [place] 1,125 mg PO TID 02/26/23 02/26/23 Mv-Mn/FA/Bl Coh/Isoflav/Jujube 1 each PO HS 02/26/23 02/26/23 [Estroven Menopause Caplet] Simethicone [Gas-X] 125 mg PO BID 02/26/23 02/26/23 Topiramate 50 mg PO BID 02/26/23 02/26/23 Previous Rx's Medication Instructions Recorded Pantoprazole [Protonix] 40 mg PO DAILY #14 tab 01/01/21 ALLERGIES: Allergies Allergy/AdvReac Type Severity Reaction Status Date / Time aspirin Allergy has ulcer Verified 01/16/21 15:08 codeine Allergy Unknown Verified 01/16/21 15:08 temazepam [From Restoril] Allergy nightmares Verified 01/16/21 15:08 ibuprofen [From Motrin] AdvReac Unknown Verified 01/16/21 15:08 Mushroom AdvReac Nausea & Verified 01/16/21 15:08 Vomiting FAMILY HISTORY: Denies any Crohn's disease or ulcerative colitis. Denies any lupus within her family. SOCIAL HISTORY: Tobacco use over 25 years, 1 pack per day. REVIEW OF SYSTEMS: CONSTITUTIONAL: Her ideal body weight for a 5' 6" frame is 154 pound. Her highest weight was 278 pounds. Body mass index is reduced from 45.0. ENDOCRINE: Has history of diabetes type 2. No hypothyroidism. Secondary hyperparathyroidism RESPIRATORY: Chronic obstructive pulmonary disease. Has asthma. CARDIOVASCULAR: History of valvular replacement for congestive heart failure. GASTROINTESTINAL: No reports of dumping syndrome. Past history of intussusception. Gastroesophageal reflux disease. History of Alfaro's esophagus. HEENT: Edentulous. Hearing impairment. Left coma MUSCULOSKELETAL: Reports osteoarthritis of the back including hips. Restless leg syndrome. History of gout. NEURO: Past recent stroke or seizure disorder. History of chronic pain. HEMATOLOGIC: No recent DVTs or pulmonary embolisms. Iron deficiency anemia. PSYCH: History chronic pain including depression. SKIN: No rash. No cancer. PHYSICAL EXAM: VITAL SIGNS: 5 foot 6, 123 pounds. Body mass is 19.9 Vital Signs Temp 98.3 F 02/26/23 16:02 Pulse 84 02/26/23 16:02 Resp BP 108/74 02/26/23 16:02 Pulse Ox FiO2 ABDOMEN: Soft, nontender, nondistended. On exam incisional hernia over 5 cm. MUSCULOSKELETAL: No clubbing, cyanosis, or edema. GENERAL: Well-developed female in no acute distress. CARDIOVASCULAR: 2+ distal pulses. HEENT: Head atraumatic, normocephalic. No nasal drainage. Hears is conversational speech. CHEST: Nonlabored respirations. Equal bilateral excursions. NECK: Supple without lymphadenopathy. NEURO: No focal or lateralizing signs. Cranial nerves II through XII grossly intact. PSYCH: Appropriate affect. Alert and oriented to person, place and time. SKIN: Well perfused. Good skin turgor. ASSESSMENT: 1. Incisional ventral hernia 2. Body mass index reduced from 45.0 down to 19.9 3. Status post gastric bypass. 4. Restless leg syndrome. 5. Obstructive sleep apnea 6. Secondary hyperparathyroidism. 7. Congestive heart failure 8. Iron deficiency anemia. 9. Hypertensive heart disease 10. Status post valvular replacement. 11. Secondary hyperparathyroidism 12. Small bowel obstruction history 13. Tobacco abuse disorder. 14. Dysphagia PLAN: 1. She presents with abdominal pain, history of bowel obstruction and incisional hernia. Recommend CT scan of abdomen and pelvis due to her abdominal pain, history of bowel obstruction, hernia. 2. She continues to smoke with higher risk for worsening hernia, surgical risk and complications. Tobacco cessation counseling over 35 minutes described are reviewed. 3. Recommend abdominal wall reconstruction without mesh described her for recommend cardiac risk assessment, medical risk assessment due to multiple medical comorbidities. 4. Recommend full bariatric metabolic panel 5. Overall, due to her weight loss she will require improved nutrition with dietary surveillance and counseling. Past Medical History Past Medical History: COPD, CVA/TIA, Fibromyalgia, GERD/Reflux, Hearing Disorder / Deafness, Hyperlipidemia, Hypertension, Liver Disease, Memory Impairment, Osteoarthritis (OA), Vascular Disorder Additional Past Medical History / Comment(s): 2016 CVA with mild L arm weakness, 2017 TIA, alfaro's esophagus with surgery, Cherie en Y surgery, spouse states pt has difficuty with stomach/eats and occasionally vomits, hiatal hernia, SBO d/t adhesions with surgery, short term memory issues, balance problem/falls, Frequent UTIs, anemia, varicosities, fluid retention, chronic cervical/back pain, migraines, seasonal allergies/sinus problems, [place] L ear. History of Any Multi-Drug Resistant Organisms: None Reported Past Surgical History: Appendectomy, Back Surgery, Bariatric Surgery, Bladder Surgery, Cardiac Valve Replacement, Section, Cholecystectomy, Joint Replacement, Tubal Ligation Additional Past Surgical History / Comment(s): EGD, EGDs with dilation/removed migrated staple, colonoscopy/benign polyp, Cherie-en-Y, laparotomies d/t SBO with lysis of adhesions, multiple low back surgeries including spinal cord stimulator since removed, cervical fusion, total R knee arthroplasty 03/14/20, bilateral knee injections, bladder suspension, cardiac valve replacement, PAIN CLINIC PROCEDURES Past Anesthesia/Blood Transfusion Reactions: Postoperative Nausea & Vomiting (PONV) Additional Past Anesthesia/Blood Transfusion Reaction / Comm: Slow to wake up from anesthesia Past Psychological History: Anxiety, Depression Additional Psychological History / Comment(s): Pt resides with her spouse and their adult son. She is independent. She has a nebulizer. Smoking Status: Current every day smoker Past Alcohol Use History: None Reported Additional Past Alcohol Use History / Comment(s): Pt started smoking in 1985 and is a ppd smoker. Past Drug Use History: None Reported - Past Family History Sister(s) Family Medical History: Myocardial Infarction ([place]) Additional Family Medical History / Comment(s): at age 43 of [place]. Mother Family Medical History: Myocardial Infarction ([place]) Additional Family Medical History / Comment(s): Mother at age 62 of [place]. Father Family Medical History: Myocardial Infarction ([place]) Additional Family Medical History / Comment(s): Father in his 40's of a [place]. Surgical - Exam Vital Signs Temp Pulse BP 98.3 F 84 108/74 02/26/23 16:02 02/26/23 16:02 02/26/23 16:02 Bariatric Checklist Checklist: Plan: Checklist: EGD: 1. Hiatal hernia: 2. H. Pylori: HgbA1c: Vitamin D: Smoking: Current some day smoker Primary care physician referral: Glendy Vargas Psychiatry clearance: Cardiology clearance: Sleep study: Diet journal: VTE risk score: VTE risk level: Rehab needs at discharge:
== END ==
LOC: BARWHC3 15:49
PROVIDERS: ATTEND Surgery Plastic and Reconstructive Surgery
DX: K21.9 Gastro-esophageal reflux disease without esophagitis (principal); E66.01 Morbid (severe) obesity due to excess calories; G25.81 Restless legs syndrome; G47.33 Obstructive sleep apnea (adult) (pediatric); K43.2 Incisional hernia without obstruction or gangrene; D50.9 Iron deficiency anemia, unspecified; R13.10 Dysphagia, unspecified; I11.0 Hypertensive heart disease with heart failure; I50.9 Heart failure, unspecified; E21.1 Secondary hyperparathyroidism, not elsewhere classified; G43.909 Migraine, unspecified, not intractable, without status migrainosus; F41.1 Generalized anxiety disorder; J44.9 Chronic obstructive pulmonary disease, unspecified; M19.90 Unspecified osteoarthritis, unspecified site; F17.200 Nicotine dependence, unspecified, uncomplicated; Z87.19 Personal history of other diseases of the digestive system; Z95.2 Presence of prosthetic heart valve; Z98.84 Bariatric surgery status; Z86.73 Personal history of transient ischemic attack (TIA), and cerebral infarction without residual deficits; Z88.6 Allergy status to analgesic agent; Z88.5 Allergy status to narcotic agent; Z91.018 Allergy to other foods; Z88.8 Allergy status to other drugs, medicaments and biological substances; Z79.899 Other long term (current) drug therapy; Z68.1 Body mass index [BMI] 19.9 or less, adult
CPT/HCPCS: 99211

== ENCOUNTER → 2023-03-28 | Outpatient (CLI) | payer MEDICARE, OTHER ==
--- NOTE | 2023-03-29 08:50 | CT ---
EXAMINATION TYPE: CT abdomen pelvis w con DATE OF EXAM: 03/28/2023 COMPARISON: 07/05/21 HISTORY: hernia CT DLP: 396.1 mGycm CONTRAST: CT scan of the abdomen and pelvis is performed with Oral Contrast and with IV Contrast, patient injec christine with 80 cc mL of Isovue 300. FINDINGS: LUNG BASES-: No visible nodule. No infiltrate. LIVER/GB: The gallbladder is surgically absent. No space occupying hepatic lesion. Intra and extrahep atic biliary ductal prominence likely the basis of postoperative cholecystectomy. PANCREAS: Atrophic changes of the pancreas with pancreatic duct dilatation measuring up to 3.8 mm. N o inflammation. No distinct mass. SPLEEN: Stable splenomegaly at a craniocaudal measurement of 13.4 cm. No lesion seen. ADRENALS: No nodule. No thickening. KIDNEYS/BLADDER: No hydronephrosis. No nephrolithiasis. No distinct renal mass. Urinary bladder g rossly unremarkable. BOWEL: Postoperative changes about the epigastrium. Small hiatal hernia noted. Normal appendix. Norm al bowel caliber. No inflammation. GENITAL ORGANS: No gross abnormality. LYMPH NODES: No greater than 1cm abdominal or pelvic lymph nodes are appreciated. AORTA: No significant abnormality. OSSEOUS STRUCTURES: No significant abnormality is seen. OTHER: No significant additional abnormality is seen. IMPRESSION: 1. Small hiatal hernia with epigastric clips are in place. 2. Postcholecystectomy biliary duct dilatation. 3. Splenomegaly.
== END | disposition home or self-care (01) ==
LOC: RADCTMAIN 15:55
PROVIDERS: ATTEND Surgery Plastic and Reconstructive Surgery
DX: K44.9 Diaphragmatic hernia without obstruction or gangrene (principal); R16.1 Splenomegaly, not elsewhere classified; K57.92 Diverticulitis of intestine, part unspecified, without perforation or abscess without bleeding; Z90.49 Acquired absence of other specified parts of digestive tract
CPT/HCPCS: 74177; Q9967

== ENCOUNTER → 2023-05-07 | Outpatient (CLI) | payer MEDICARE, OTHER ==
[2023-05-07 17:33] LABS: INR 1.1 (<1.2); Partial Thromboplastin Time 24.6 sec (22.0-30.0); Prothrombin Time 11.6 sec (10.0-12.5)
[2023-05-08 02:10] LABS: HCT 43.3 % (37.2-46.3); HGB 13.9 g/dL (12.0-15.0); MCH 29.5 pg (27.0-32.0); MCHC 32.1 g/dL (32.0-37.0); MCV 91.9 FL (80.0-97.0); Mean Platelet Volume 12.4 FL (9.5-12.2); NRBC Per 100 WBC 0 X 10*3/uL (0.00-0.01); Platelet Count 141 X 10*3/uL (140-440); RBC 4.71 X 10*6/uL (4.10-5.20); RDW 14.3 % (11.5-14.5)
[2023-05-08 02:54] LABS: Prealbumin 23.1 mg/dL (18.0-42.0)
[2023-05-08 03:20] LABS: % Iron Saturation 24.37 (12.00-45.00); ALT 37 U/L (8-44); AST 32 U/L (13-35); Albumin/Globulin Ratio 1.54 Ratio (1.60-3.17); Alkaline Phosphatase 119 U/L (41-126); BUN/Creat Ratio 15.56 Ratio (12.00-20.00); Calcium 8.7 mg/dL (8.7-10.3); Carbon Dioxide 22.2 mmol/L (21.6-31.8); Chloride 106 mmol/L (96-109); Chol/HDL Ratio 2.41 Ratio; Ferritin 54.8 ng/mL (10.0-291.0); Globulin 2.6 g/dL (1.6-3.3); Glucose 92 mg/dL (70-110); Iron 68 UG/DL (50-170); LDL Cholesterol,Calculated 62.9 mg/dL (0.0-131.0); Magnesium 2.3 mg/dL (1.5-2.4); Phosphorus 3.7 mg/dL (2.4-5.1); Potassium 4.3 mmol/L (3.5-5.5); Sodium 138 mmol/L (135-145); Total Bilirubin <0.2 mg/dL (0.3-1.2); Total Iron Binding Capacity 279 UG/DL (228-460); Total Protein 6.6 g/dL (6.2-8.2)
[2023-05-08 15:40] LABS: Zinc, Serum 84 ug/dL (60-130)
[2023-05-09 05:51] LABS: Vit B1(Thiamine) 103 ug/L (38-122)
== END | disposition home or self-care (01) ==
LOC: LABWHC1 16:30
PROVIDERS: ATTEND Surgery Plastic and Reconstructive Surgery
DX: E66.01 Morbid (severe) obesity due to excess calories (principal); E89.1 Postprocedural hypoinsulinemia; D50.8 Other iron deficiency anemias; K91.2 Postsurgical malabsorption, not elsewhere classified; E44.0 Moderate protein-calorie malnutrition; E44.1 Mild protein-calorie malnutrition; E55.9 Vitamin D deficiency, unspecified; K74.1 Hepatic sclerosis; N19 Unspecified kidney failure; T56.894A Toxic effect of other metals, undetermined, initial encounter; K50.90 Crohn's disease, unspecified, without complications
CPT/HCPCS: 36415; 80053; 80061; 80307; 80323; 82306; 82525; 82607; 82728; 82746; 83036; 83540; 83550; 83735; 83970; 84100; 84134; 84255; 84425; 84443; 84590; 84630; 85027; 85610; 85730

== ENCOUNTER 2023-05-21 07:12 | Day surgery (SDC) | payer MEDICARE, OTHER ==
--- NOTE | 2023-05-21 07:38 | P.GSHP ---
History of Present Illness H&P Date: 05/21/23 CHIEF COMPLAINT: GERD HISTORY OF PRESENT ILLNESS: The patient is a 62-year-old female who presents reports gastroesophageal reflux disease. Upper endoscopy was offered for further evaluation and management. PAST MEDICAL HISTORY: Please see list. PAST SURGICAL HISTORY: Please see list. MEDICATIONS: Please see list. ALLERGIES: Please see list. SOCIAL HISTORY: No illicit drug use FAMILY HISTORY: No reports of Crohn disease or ulcerative colitis. REVIEW OF ORGAN SYSTEMS: CONSTITUTIONAL: No reports of fevers or chills. GI: Denies any blood in stools or constipation. PHYSICAL EXAM: VITAL SIGNS: Stable GENERAL: Well-developed and pleasant in no acute distress. HEENT: No scleral icterus. Extraocular movements grossly intact. Moist buccal mucosa. NECK: Supple without lymphadenopathy. CHEST: Unlabored respirations. Equal bilateral excursions. CARDIOVASCULAR: Regular rate and rhythm. Distal 2+ pulses. ABDOMEN: Soft, nondistended. MUSCULOSKELETAL: No clubbing, cyanosis, or edema. ASSESSMENT: 1. Gastroesophageal reflux disease PLAN: 1. Recommend proceeding with an upper endoscopy Past Medical History Past Medical History: COPD, CVA/TIA, Fibromyalgia, GERD/Reflux, Hearing Disorder / Deafness, Hyperlipidemia, Hypertension, Liver Disease, Memory Impairment, Osteoarthritis (OA), Vascular Disorder Additional Past Medical History / Comment(s): 2016 CVA with mild L arm weakness, 2017 TIA, alfaro's esophagus with surgery, Cherie en Y surgery, spouse states pt has difficuty with stomach/eats and occasionally vomits, hiatal hernia, SBO d/t adhesions with surgery, short term memory issues, balance problem/falls, Frequent UTIs, anemia, varicosities, fluid retention, chronic cervical/back pain, migraines, seasonal allergies/sinus problems, [place] L ear. History of Any Multi-Drug Resistant Organisms: None Reported Past Surgical History: Appendectomy, Back Surgery, Bariatric Surgery, Bladder Surgery, Cardiac Valve Replacement, Section, Cholecystectomy, Joint Replacement, Tubal Ligation Additional Past Surgical History / Comment(s): EGD, EGDs with dilation/removed migrated staple, colonoscopy/benign polyp, Cherie-en-Y, laparotomies d/t SBO with lysis of adhesions, multiple low back surgeries including spinal cord stimulator since removed, cervical fusion, total R knee arthroplasty 03/14/20, bilateral knee injections, bladder suspension, cardiac valve replacement, PAIN CLINIC PROCEDURES Past Anesthesia/Blood Transfusion Reactions: Postoperative Nausea & Vomiting (PONV) Additional Past Anesthesia/Blood Transfusion Reaction / Comment(s): Slow to wake up from anesthesia Past Psychological History: Anxiety, Depression Additional Psychological History / Comment(s): Pt resides with her spouse and their adult son. She is independent. She has a nebulizer. Smoking Status: Former smoker Past Alcohol Use History: None Reported Additional Past Alcohol Use History / Comment(s): Pt started smoking in 1985. FEB 28, 2020 Past Drug Use History: None Reported - Past Family History Sister(s) Family Medical History: Myocardial Infarction ([place]) Additional Family Medical History / Comment(s): at age 43 of [place]. Mother Family Medical History: Myocardial Infarction ([place]) Additional Family Medical History / Comment(s): Mother at age 62 of [place]. Father Family Medical History: Myocardial Infarction ([place]) Additional Family Medical History / Comment(s): Father in his 40's of a [place]. Medications and Allergies Home Medications Medication Instructions Recorded Confirmed Type Albuterol Nebulized [Ventolin 2.5 mg INHALATION RT-TID 07/07/13 05/19/23 History Nebulized] Venlafaxine HCl [Effexor XR] 150 mg PO BID 01/12/15 05/19/23 History Calcium Carbonate [Calcium] 600 mg PO DAILY 12/10/18 05/19/23 History Cholecalciferol [Vitamin D3 (25 20 mcg PO DAILY 12/10/18 05/19/23 History Mcg = 1000 Iu)] Albuterol Sulfate [Albuterol 2 puff INHALATION RT-QID PRN 11/12/19 05/19/23 History Sulfate Hfa] Furosemide [Lasix] 20 mg PO QAM 11/12/19 05/19/23 History Metoprolol Succinate (ER) [Toprol 50 mg PO BID 11/12/19 05/19/23 History XL] Cranberry Fruit Extract [Cranberry] 1,000 mg PO DAILY 05/01/20 05/19/23 History Multivitamins, Thera [Multivitamin 1 tab PO DAILY 05/01/20 05/19/23 History (formulary)] Potassium Chloride ER [K-Dur 20] 10 meq PO Q2D 05/01/20 05/19/23 History methocarbamoL [Robaxin-750] 750 mg PO QID 06/02/20 05/19/23 History Ondansetron [Zofran ODT] 4 mg PO TID PRN 10/25/20 05/19/23 History Acetaminophen [Tylenol Arthritis] 2 tab PO BID 12/28/20 05/19/23 History Lidocaine 5% Patch [Lidoderm 5% 1 patch TOPICAL DAILY 12/28/20 05/19/23 History Patch] Buprenorphine HCl/Naloxone HCl 1 each SL QID 02/26/23 05/19/23 History [Suboxone 4 mg-1 mg Sl Film] Dicyclomine [Bentyl] 10 mg PO QID 02/26/23 05/19/23 History Fluticasone/Vilanterol [Breo 1 inhalation PO Q24HR 02/26/23 05/19/23 History Ellipta 100-25 Mcg Inhaler] Lactulose 10 gm PO BID 02/26/23 05/19/23 History Latanoprost [Latanoprost 0.005%] 1 drop BOTH EYES HS 02/26/23 05/19/23 History Topiramate 100 mg PO BID 02/26/23 05/19/23 History Ondansetron Odt [Zofran ODT] 4 mg SL Q8H PRN 05/19/23 05/19/23 History Pantoprazole [Protonix] 40 mg PO QAM 05/19/23 05/19/23 History estradioL [Estrace] 1 tab PO DAILY 05/19/23 05/19/23 History Allergies Allergy/AdvReac Type Severity Reaction Status Date / Time aspirin Allergy has ulcer Verified 05/19/23 10:22 codeine Allergy Unknown Verified 05/19/23 10:22 temazepam [From Restoril] Allergy nightmares Verified 05/19/23 10:22 ibuprofen [From Motrin] AdvReac Unknown Verified 05/19/23 10:22 Mushroom AdvReac Nausea & Verified 05/19/23 10:22 Vomiting
[2023-05-21] MEDS: LACTATED RINGERS 1,000 ML IV SCH (08:03)
[2023-05-21] MEDS ORDERED: PROPOFOL 10 MG/ML 20 ML VIAL IV ONE (08:20)
[2023-05-21] MEDS ORDERED: LIDOCAINE 1% INJ 10MG/ML (20 ML MDV) ONE (08:20)
[2023-05-21 08:26] VITALS: TEMP 97.5
[2023-05-21 09:05] VITALS: BP 116/78; PULSE 71; RESP 16
--- NOTE | 2023-05-21 09:10 | P.PCN ---
Date of Procedure: 05/21/23 Description of Procedure: PREOPERATIVE DIAGNOSIS: Dysphagia. s/p Cherie-en-y gastric bypass. Nausea with vomiting. Tobacco abuse disorder POSTOPERATIVE DIAGNOSIS: Dysphagia. s/p Cherie-en-y gastric bypass. Nausea with vomiting. Gastrojejunal stricture with chronic ulcer without perforation OPERATION: Esophagogastrojejunoscopy with balloon dilatation from 18 to 20 mm. SURGEON: Rayne Fleming MD ANESTHESIA: MAC. INDICATIONS: The patient is a 55-year-old female who presents with a history of dysphagia, gastric bypass including new-onset nausea and vomiting. Benefits and risks of the procedure were described. Informed consent was obtained. DESCRIPTION: The patient was brought into the endoscopy suite and laid in the left lateral decubitus position. After a timeout was confirmed, the procedure was initiated. An Olympus gastroscope was passed along the posterior oropharynx down to the distal esophagus where the squamocolumnar junction was unremarkable. The gastric pouch was entered. A gastrojejunal stricture of 18 mm was found as the adult gastroscope was 9.5 mm in size. A WizMeta balloon dilator was placed through the scope. Final insufflation up to 20 mm was performed with a total of 2 minutes. The scope was advanced up to 60 cm from the incisors into the Cherie limb. The mucosa of the gastrojejunal anastomosis was intact. No chronic gastrojejunal marginal ulcer was encountered. No full-thickness injury was encountered. The GI tract was desufflated. The patient tolerated the procedure well. FINDINGS: Squamocolumnar junction unremarkable at 37 cm. Stricture of approximately 18 mm encountered. Chronic gastrojejunal ulceration encountered. Successful balloon dilatation to 20 mm. Diaphragmatic hiatus at 40 cm. Gastric pouch 4 cm. LA grade B erosive esophagitis RECOMMENDATIONS: Upper endoscopy as needed Tobacco cessation and counseling reinforced Plan - Discharge Summary Discharge Rx Participant: No New Discharge Prescriptions: Continue Albuterol Nebulized [Ventolin Nebulized] 2.5 mg INHALATION RT-TID Venlafaxine HCl [Effexor XR] 150 mg PO BID Calcium Carbonate [Calcium] 600 mg PO DAILY Cholecalciferol [Vitamin D3 (25 Mcg = 1000 Iu)] 20 mcg PO DAILY Albuterol Sulfate [Albuterol Sulfate Hfa] 2 puff INHALATION RT-QID PRN PRN Reason: Shortness Of Breath Or Wheezing Metoprolol Succinate (ER) [Toprol XL] 50 mg PO BID Furosemide [Lasix] 20 mg PO QAM Potassium Chloride ER [K-Dur 20] 10 meq PO Q2D Multivitamins, Thera [Multivitamin (formulary)] 1 tab PO DAILY Cranberry Fruit Extract [Cranberry] 1,000 mg PO DAILY Ondansetron [Zofran ODT] 4 mg PO TID PRN PRN Reason: Nausea Acetaminophen [Tylenol Arthritis] 2 tab PO BID Lidocaine 5% Patch [Lidoderm 5% Patch] 1 patch TOPICAL DAILY Topiramate 100 mg PO BID Dicyclomine [Bentyl] 10 mg PO QID methocarbamoL [Robaxin-750] 750 mg PO QID Fluticasone/Vilanterol [Breo Ellipta 100-25 Mcg Inhaler] 1 inhalation PO Q24HR Buprenorphine HCl/Naloxone HCl [Suboxone 4 mg-1 mg Sl Film] 1 each SL QID Latanoprost [Latanoprost 0.005%] 1 drop BOTH EYES HS Lactulose 10 gm PO BID Pantoprazole [Protonix] 40 mg PO QAM estradioL [Estrace] 1 tab PO DAILY Ondansetron Odt [Zofran ODT] 4 mg SL Q8H PRN PRN Reason: Nausea Discharge Medication List Albuterol Nebulized [Ventolin Nebulized] 2.5 mg INHALATION RT-TID 07/07/13 [History] Venlafaxine HCl [Effexor XR] 150 mg PO BID 01/12/15 [History] Calcium Carbonate [Calcium] 600 mg PO DAILY 12/10/18 [History] Cholecalciferol [Vitamin D3 (25 Mcg = 1000 Iu)] 20 mcg PO DAILY 12/10/18 [History] Albuterol Sulfate [Albuterol Sulfate Hfa] 2 puff INHALATION RT-QID PRN 11/12/19 [History] Furosemide [Lasix] 20 mg PO QAM 11/12/19 [History] Metoprolol Succinate (ER) [Toprol XL] 50 mg PO BID 11/12/19 [History] Cranberry Fruit Extract [Cranberry] 1,000 mg PO DAILY 05/01/20 [History] Multivitamins, Thera [Multivitamin (formulary)] 1 tab PO DAILY 05/01/20 [History] Potassium Chloride ER [K-Dur 20] 10 meq PO Q2D 05/01/20 [History] methocarbamoL [Robaxin-750] 750 mg PO QID 06/02/20 [History] Ondansetron [Zofran ODT] 4 mg PO TID PRN 10/25/20 [History] Acetaminophen [Tylenol Arthritis] 2 tab PO BID 12/28/20 [History] Lidocaine 5% Patch [Lidoderm 5% Patch] 1 patch TOPICAL DAILY 12/28/20 [History] Buprenorphine HCl/Naloxone HCl [Suboxone 4 mg-1 mg Sl Film] 1 each SL QID 02/26/23 [History] Dicyclomine [Bentyl] 10 mg PO QID 02/26/23 [History] Fluticasone/Vilanterol [Breo Ellipta 100-25 Mcg Inhaler] 1 inhalation PO Q24HR 02/26/23 [History] Lactulose 10 gm PO BID 02/26/23 [History] Latanoprost [Latanoprost 0.005%] 1 drop BOTH EYES HS 02/26/23 [History] Topiramate 100 mg PO BID 02/26/23 [History] Ondansetron Odt [Zofran ODT] 4 mg SL Q8H PRN 05/19/23 [History] Pantoprazole [Protonix] 40 mg PO QAM 05/19/23 [History] estradioL [Estrace] 1 tab PO DAILY 05/19/23 [History] [facility] [place] [facility] - As Needed Patient Instructions/Handouts: Esophageal Dilation (GEN), How to Stop Smoking (ED) Activity/Diet/Wound Care/Special Instructions: Diet as tolerated Discharge Disposition: HOME SELF-CARE
== END 2023-05-21 10:37 | disposition home or self-care (01) ==
LOC: ORWHC2ENDO 07:12
PROVIDERS: ATTEND Surgery Plastic and Reconstructive Surgery
DX: K22.2 Esophageal obstruction (principal); K31.89 Other diseases of stomach and duodenum; K21.00 Gastro-esophageal reflux disease with esophagitis, without bleeding; K44.9 Diaphragmatic hernia without obstruction or gangrene; J44.9 Chronic obstructive pulmonary disease, unspecified; M79.7 Fibromyalgia; I10 Essential (primary) hypertension; E78.5 Hyperlipidemia, unspecified; M19.90 Unspecified osteoarthritis, unspecified site; Z86.73 Personal history of transient ischemic attack (TIA), and cerebral infarction without residual deficits; Z87.440 Personal history of urinary (tract) infections; Z90.49 Acquired absence of other specified parts of digestive tract; Z95.2 Presence of prosthetic heart valve; Z87.891 Personal history of nicotine dependence; Z82.49 Family history of ischemic heart disease and other diseases of the circulatory system; Z79.899 Other long term (current) drug therapy; Z88.5 Allergy status to narcotic agent; Z88.6 Allergy status to analgesic agent
CPT/HCPCS: 43249; J2001; J2704; C1726